=== PATIENT | female | born 1945 | race Caucasian/White ===

== ENCOUNTER → 2017-02-18 | Outpatient (CLI) | payer MEDICARE, MEDICAID ==
[2017-02-18 12:24] LABS: ALANINE AMINOTRANSFERASE 20 U/L (9-52); ALBUMIN 3.8 g/dL (3.5-5.0); ALKALINE PHOSPHATASE 74 U/L (38-126); ASPARTATE AMINO TRANSFERASE 22 U/L (14-36); BILIRUBIN,DIRECT 0.2 mg/dL (0.0-0.4); BILIRUBIN,TOTAL 0.5 mg/dL (0.2-1.3); CHOLESTEROL 164.54 mg/dL (0-200); Direct HDL 37 mg/dL (>40); TOTAL PROTEIN 6.7 g/dL (6.3-8.2); TRIGLYCERIDES 412 mg/dL (<150)
[2017-02-18 12:36] LABS: DIRECT LDL 60 mg/dL (<100)
== END ==
LOC: OD 10:54
PROVIDERS: ATTEND Specialist
DX: E78.5 Hyperlipidemia, unspecified (principal); Z79.899 Other long term (current) drug therapy; I34.0 Nonrheumatic mitral (valve) insufficiency; R01.1 Cardiac murmur, unspecified; I25.118 Atherosclerotic heart disease of native coronary artery with other forms of angina pectoris; M15.9 Polyosteoarthritis, unspecified; E11.9 Type 2 diabetes mellitus without complications; E66.9 Obesity, unspecified; I66.9 Occlusion and stenosis of unspecified cerebral artery; R94.31 Abnormal electrocardiogram [ECG] [EKG]; R07.9 Chest pain, unspecified; R06.09 Other forms of dyspnea
CPT/HCPCS: 36415; 80061; 80076; 83036

== ENCOUNTER → 2017-03-15 | Outpatient (CLI) | payer MEDICARE, MEDICAID | LOC: RAD 08:35 | PROVIDERS: ATTEND Family Medicine | DX: R11.0 Nausea (principal) | CPT/HCPCS: 78264; A9541 ==

== ENCOUNTER 2017-03-21 12:11 | Day surgery (SDC) | payer MEDICARE, MEDICAID ==
[2017-03-21] MEDS ORDERED: MIDAZOLAM 2 MG/2 ML INJ ONE ×2 (12:13→12:14)
[2017-03-21] MEDS ORDERED: NALOXONE HCL INJ/PF 0.4 MG/1 ML SDV ONE (12:13)
[2017-03-21] MEDS ORDERED: DIPHENHYDRAMINE HCL 50 MG/ML VIAL ONE (12:13)
[2017-03-21] MEDS ORDERED: ONDANSETRON HCL INJ/PF 4 MG/2 ML SDV ONE (12:13)
[2017-03-21] MEDS ORDERED: FLUMAZENIL INJ 0.5 MG/5 ML VIAL IV ONE (12:14)
[2017-03-21] MEDS ORDERED: FENTANYL CITRATE INJ/PF 100 MCG/2 ML AMPUL ONE (12:14)
[2017-03-21] MEDS ORDERED: GLUCAGON,HUMAN RECOMB 1 MG INJ ONE (12:15)
[2017-03-21] MEDS ORDERED: EPINEPHRINE INJ 1 MG/10 ML DISP.SYRIN ONE (12:15)
[2017-03-21] MEDS ORDERED: ONABOTULINUMTOXINA INJ/PF 100 UNIT SDV IM PRN (13:00)
--- NOTE | 2017-03-21 13:27 | Operative Report ---
Operative Report DATE OF SURGERY: 03/21/17 Operative Report: The risks benefits and alternatives of the procedure explained to the patient in detail and informed consent is obtained . GIF Olympus video scope was inserted into the patient's mouth and hypopharynx, the esophagus is identified intubated and insufflated, the scope was then advanced through the esophagus stomach and duodenum, retroflexion maneuver is done the esophagus stomach and first and second portions of the duodenum examined PREOPERATIVE DIAGNOSIS: Nausea vomiting, gastroparesis POSTOPERATIVE DIAGNOSIS: Gastritis status post biopsy. Lack of peristalsis in the gastric antrum status post submucosal injection 20 units per mL off Botox, total of 5 mL OPERATION: EGD with submucosal injection. EGD with biopsy SURGEON: ELVIRA SANDHU ANESTHESIA: Moderate Sedation - 2 mg of Versed. Conscious sedation monitoring time 30 minutes. TISSUE REMOVED OR ALTERED: Gastric mucosal specimens obtained COMPLICATIONS: None. ESTIMATED BLOOD LOSS: none. INTRAOPERATIVE FINDINGS: As described above. PROCEDURE: Patient tolerated the procedure well. No immediate postprocedure complications are noted. Patient discharged in good condition. Discharge date 03/21/2017. Discharge diet: Regular. Discharge activity: Regular. 2-3 week follow-up to discuss findings. Patient is instructed to call the office or proceed to the emergency room should there be any further problems or questions. We'll await on biopsies.
[2017-03-21 14:30] VITALS: BP 136/64
== END 2017-03-21 14:35 | disposition home or self-care (01) ==
LOC: END 12:11
PROVIDERS: ATTEND Internal Medicine Gastroenterology
PROC: 0DB68ZX Excision of Stomach, Via Natural or Artificial Opening Endoscopic, Diagnostic (ICD-10-PCS; principal; 2017-03-21 13:00)
PROC: 3E0G8GC Introduction of Other Therapeutic Substance into Upper GI, Via Natural or Artificial Opening Endoscopic (ICD-10-PCS; 2017-03-21 13:00)
DX: K31.84 Gastroparesis (principal); K29.50 Unspecified chronic gastritis without bleeding; J44.9 Chronic obstructive pulmonary disease, unspecified; E78.2 Mixed hyperlipidemia; G62.9 Polyneuropathy, unspecified; E08.22 Diabetes mellitus due to underlying condition with diabetic chronic kidney disease; I13.2 Hypertensive heart and chronic kidney disease with heart failure and with stage 5 chronic kidney disease, or end stage renal disease; I50.9 Heart failure, unspecified; N18.6 End stage renal disease; Z87.891 Personal history of nicotine dependence; Z86.73 Personal history of transient ischemic attack (TIA), and cerebral infarction without residual deficits; Z79.4 Long term (current) use of insulin; Z79.899 Other long term (current) drug therapy; Z88.8 Allergy status to other drugs, medicaments and biological substances; Z79.51 Long term (current) use of inhaled steroids; Z79.82 Long term (current) use of aspirin
CPT/HCPCS: 43236; 43239; 82962; 88342 ×2; 88305 ×2; J2250; J0585; J0171; J1200; J1610; J2310; J2405; J3010; J3490

== ENCOUNTER → 2017-07-01 | Outpatient (CLI) | payer MEDICARE, MEDICAID ==
[2017-07-01 14:19] LABS: THYROID STIMULATING HORMONE 0.09 uIU/mL (0.47-4.68)
== END ==
LOC: OD 12:06
PROVIDERS: ATTEND Ophthalmology
DX: E10.3393 Type 1 diabetes mellitus with moderate nonproliferative diabetic retinopathy without macular edema, bilateral (principal); H04.123 Dry eye syndrome of bilateral lacrimal glands
CPT/HCPCS: 36415; 84439; 84443

== ENCOUNTER 2017-08-13 12:40 | Day surgery (SDC) | payer MEDICARE, MEDICAID ==
[2017-08-13] MEDS ORDERED: ONDANSETRON HCL INJ/PF 4 MG/2 ML SDV ONE (13:04)
[2017-08-13] MEDS ORDERED: MIDAZOLAM 2 MG/2 ML INJ ONE ×2 (13:04)
[2017-08-13] MEDS ORDERED: NALOXONE HCL INJ/PF 0.4 MG/1 ML SDV ONE (13:04)
[2017-08-13] MEDS ORDERED: DIPHENHYDRAMINE HCL 50 MG/ML VIAL ONE (13:04)
[2017-08-13] MEDS ORDERED: GLUCAGON,HUMAN RECOMB 1 MG INJ ONE (13:05)
[2017-08-13] MEDS ORDERED: FLUMAZENIL INJ 0.5 MG/5 ML VIAL ONE (13:05)
[2017-08-13] MEDS ORDERED: EPINEPHRINE INJ 1 MG/10 ML DISP.SYRIN ONE (13:05)
[2017-08-13] MEDS ORDERED: ONABOTULINUMTOXINA INJ/PF 100 UNIT SDV IM PRN (13:10)
[2017-08-13] MEDS: FENTANYL CITRATE INJ/PF 100 MCG/2 ML AMPUL ONE ×2 (13:32→13:34)
--- NOTE | 2017-08-13 13:52 | Operative Report ---
Operative Report DATE OF SURGERY: 08/13/17 Operative Report: The risks benefits and alternatives of the procedure explained to the patient in detail and informed consent is obtained .A GIF Olympus video scope was inserted into the patient's mouth and hypopharynx, the esophagus is identified intubated and insufflated, the scope was then advanced through the esophagus stomach and duodenum, retroflexion maneuver is done, the esophagus stomach and first and second portions of the duodenum examined PREOPERATIVE DIAGNOSIS: Gastroparesis, nausea and vomiting POSTOPERATIVE DIAGNOSIS: Residual food status post Botox injection total of 100 units; 20 U/cc injection OPERATION: EGD with submucosal injection of Botox SURGEON: ELVIRA SANDHU ANESTHESIA: Moderate Sedation - 4 mg of Versed, 50 mcg of fentanyl. Conscious sedation monitoring time 30 minutes. TISSUE REMOVED OR ALTERED: None. COMPLICATIONS: None. ESTIMATED BLOOD LOSS: None. INTRAOPERATIVE FINDINGS: Residual food noted in the stomach cavity. Patient had been n.p.o. since midnight. Indicates gastroparesis since at least 12 hours as gone by PROCEDURE: Patient tolerated procedure well. No immediate postprocedure complications are noted. Patient discharged in good condition. Discharge date 08/13/2017. Discharge diet: Regular. Discharge activity: Regular. 2-3 week follow-up to discuss findings. Patient is instructed to call the office or proceed to the emergency room should there be any further problems or questions.
[2017-08-13 14:54] VITALS: BP 132/62
== END 2017-08-13 15:00 | disposition home or self-care (01) ==
LOC: END 12:40
PROVIDERS: ATTEND Internal Medicine Gastroenterology
PROC: 0DH63UZ Insertion of Feeding Device into Stomach, Percutaneous Approach (ICD-10-PCS; principal; 2017-08-13 13:30)
DX: K31.84 Gastroparesis (principal); M19.90 Unspecified osteoarthritis, unspecified site; J44.9 Chronic obstructive pulmonary disease, unspecified; E78.5 Hyperlipidemia, unspecified; I25.10 Atherosclerotic heart disease of native coronary artery without angina pectoris; I12.9 Hypertensive chronic kidney disease with stage 1 through stage 4 chronic kidney disease, or unspecified chronic kidney disease; E11.22 Type 2 diabetes mellitus with diabetic chronic kidney disease; N18.3 Chronic kidney disease, stage 3 (moderate); E78.2 Mixed hyperlipidemia; E11.319 Type 2 diabetes mellitus with unspecified diabetic retinopathy without macular edema; E11.49 Type 2 diabetes mellitus with other diabetic neurological complication; Z86.73 Personal history of transient ischemic attack (TIA), and cerebral infarction without residual deficits
CPT/HCPCS: 43236; 82962; J2250; J3010; J0585; J0171; J1200; J1610; J2310; J2405; J3490

== ENCOUNTER → 2017-09-04 | Outpatient (CLI) | payer MEDICARE, MEDICAID ==
--- NOTE | 2017-09-04 18:40 | WOMENS IMAGING REPORT ---
EXAM DESCRIPTION: BILAT SCREENING MAMMO W/CAD COMPLETED DATE/TIME: 09/04/2017 4:36 pm REASON FOR STUDY: SCREENING MAMMO Z12.31 ENCNTR SCREEN MAMMOGRAM FOR MALIGNANT NEOPLASM OF [place] COMPARISON: 2012 TECHNIQUE: Standard craniocaudal and mediolateral oblique views of each breast recorded using digita l acquisition. LIMITATIONS: None. FINDINGS: Findings present which are benign by mammographic criteria. No suspicious masses, calcifi cations or architectural distortion. Pertinent benign findings: Benign calcifications bilaterally Read with the assistance of CAD. .[facility] - R2 Cenova Version 1.3 .[facility] Imaging - R2 Cenova Version 1.3 .[facility] Imaging - R2 Cenova Version 2.4 .[facility] - R2 Cenova Version 2.4 .[facility] - R2 Foster Winder Version 9.2 Benign mammographic findings may include one or more of the following: Smooth masses, popcorn/rim/co arse calcifications, asymmetries, post-procedure changes, and lesions with long-standing stability. IMPRESSION: BENIGN MAMMOGRAPHIC FINDINGS. BIRADS 2 BREAST DENSITY: b. There are scattered areas of fibroglandular density. BIRAD: 2 BENIGN FINDING(S) RECOMMENDATION: ROUTINE SCREENING COMMENT: The patient has been notified of the results by letter per SA requirements. Additional no tification policies are in place for contacting patient with suspicious or incomplete findings. Quality ID #[id number]: [employer] [place] [employer] recommends an annual screening mammogram for women aged 40 years or over. This facility utilizes a reminder system to ensure that all patients receive reminder letters, and/or direct phone calls for appointments. This includes reminders for routine scr eening mammograms, diagnostic mammograms, or other Breast Imaging Interventions when appropriate. Th is patient will be placed in the appropriate reminder system. [employer] [place] [employer] ([employer]) has developed recommendations for screening MRI of the breast s in certain patient populations, to be used in conjunction with mammography. Breast MRI surveillanc e may be appropriate for women with more than 20% lifetime risk of developing breast cancer as deter mined by genetic testing, significant family history of the disease, or history of mantle radiation f or Hodgkins Disease. ACR Practice Guidelines 2008. TECHNICAL DOCUMENTATION: FINDING NUMBER: (1) ASSESSMENT: (1) JOB ID: [id number] [employer]- All Rights Reserved
== END ==
LOC: WI 14:06
PROVIDERS: ATTEND Family Medicine
DX: Z12.31 Encounter for screening mammogram for malignant neoplasm of breast (principal)
CPT/HCPCS: 77067; G0202

== ENCOUNTER → 2018-02-21 | Outpatient (CLI) | payer MEDICARE, MEDICAID ==
--- NOTE | 2018-02-21 16:16 | RADIOLOGY REPORT (SQ) ---
EXAM DESCRIPTION: ANKLE RIGHT COMPLETE COMPLETED DATE/TIME: 02/21/2018 3:49 pm REASON FOR STUDY: SHORTNESS OF BREATH; ACUTE RT ANKLE PAIN R06.02 SHORTNESS OF BREATH M25.571 PAIN IN RIGHT ANKLE AND JOINTS OF RIGHT FOOT COMPARISON: None. NUMBER OF VIEWS: Three views. TECHNIQUE: AP, lateral, and oblique without weight bearing radiographic images acquired of the right ankle. LIMITATIONS: None. FINDINGS: MINERALIZATION: Normal. BONES: No acute fracture or dislocation. No worrisome bone lesions. Plantar calcaneal spur. JOINTS: No effusions. SOFT TISSUES: Soft tissue swelling. No foreign body. OTHER: No other significant finding. IMPRESSION: SOFT TISSUE SWELLING. NO SIGNIFICANT BONY FINDINGS. TECHNICAL DOCUMENTATION: JOB ID: [id number] [employer]- All Rights Reserved Reading location - IP/workstation name: [email or web address]
--- NOTE | 2018-02-21 16:19 | RADIOLOGY REPORT (SQ) ---
EXAM DESCRIPTION: CHEST PA/LATERAL COMPLETED DATE/TIME: 02/21/2018 3:49 pm REASON FOR STUDY: SHORTNESS OF BREATH; ACUTE RT ANKLE PAIN COMPARISON: April 2016 EXAM PARAMETERS: NUMBER OF VIEWS: two views TECHNIQUE: Digital Frontal and Lateral radiographic views of the chest acquired. RADIATION DOSE: NA LIMITATIONS: none FINDINGS: LUNGS AND PLEURA: No opacities, masses or pneumothorax. No pleural effusion. MEDIASTINUM AND HILAR STRUCTURES: No masses or contour abnormalities. HEART AND VASCULAR STRUCTURES: Cardiac silhouette is mildly enlarged. There is mild pulmonary vascul ar congestion BONES: No acute findings. HARDWARE: Patient is status post median sternotomy. OTHER: No other significant finding. IMPRESSION: No acute consolidations or pleural effusions. There is mild cardiomegaly with mild pulm onary vascular congestion. Other findings as noted above TECHNICAL DOCUMENTATION: JOB ID: [id number] [employer]- All Rights Reserved Reading location - IP/workstation name: [email or web address]
== END ==
LOC: OD 15:25
PROVIDERS: ATTEND Family Medicine
DX: M25.571 Pain in right ankle and joints of right foot (principal); R06.02 Shortness of breath
CPT/HCPCS: 71046

== ENCOUNTER → 2018-04-21 | Outpatient (CLI) | payer MEDICARE, MEDICAID ==
--- NOTE | 2018-04-21 14:36 | RADIOLOGY REPORT (SQ) ---
EXAM DESCRIPTION: CHEST PA/LATERAL COMPLETED DATE/TIME: 04/21/2018 2:25 pm REASON FOR STUDY: HEART FAILURE, UNSPECIFIED COMPARISON: Chest films 03/20/2016, 04/11/2016, 02/21/2018 EXAM PARAMETERS: NUMBER OF VIEWS: two views TECHNIQUE: Digital Frontal and Lateral radiographic views of the chest acquired. RADIATION DOSE: NA LIMITATIONS: none FINDINGS: LUNGS AND PLEURA: Bandlike atelectasis is present along the left major fissure and in the left upper lobe. This is similar compared to 02/21/2018. No fluffy alveolar infiltrates worrisome for edema or pneumonia. No pleural effusions. No pneumotho rax. MEDIASTINUM AND HILAR STRUCTURES: No masses or contour abnormalities. HEART AND VASCULAR STRUCTURES: Mild cardiomegaly. Old sternotomy and CABG. BONES: Osteopenic without thoracic spine compression deformity HARDWARE: Clips right upper quadrant post cholecystectomy. OTHER: No other significant finding. IMPRESSION: Left upper lobe bandlike scarring or atelectasis. Stable cardiomegaly with old CABG TECHNICAL DOCUMENTATION: JOB ID: [id number] [employer]- All Rights Reserved Reading location - IP/workstation name: [email or web address]
== END ==
LOC: OD 13:57
PROVIDERS: ATTEND Family Medicine
DX: I50.9 Heart failure, unspecified (principal); I51.7 Cardiomegaly; Z95.1 Presence of aortocoronary bypass graft
CPT/HCPCS: 71046

== ENCOUNTER 2018-06-18 07:36 | Day surgery (SDC) | payer MEDICARE, MEDICAID ==
[2018-06-18] MEDS ORDERED: ONABOTULINUMTOXINA INJ/PF 100 UNIT SDV IJ ONE (10:00)
[2018-06-18] MEDS ORDERED: PROMETHAZINE HCL INJ 25 MG/1 ML VIAL IV PRN ×2 (10:57)
[2018-06-18] MEDS ORDERED: DIPHENHYDRAMINE HCL 50 MG/ML VIAL IV PRN (10:57)
[2018-06-18] MEDS ORDERED: FENTANYL CITRATE INJ/PF 100 MCG/2 ML AMPUL IV PRN ×3 (10:57)
[2018-06-18] MEDS ORDERED: MEPERIDINE HCL/PF INJ 25 MG/1 ML DISP.SYRIN IV PRN (10:57)
--- NOTE | 2018-06-18 12:27 | Operative Report ---
Operative Report DATE OF SURGERY: 06/18/18 Operative Report: The risks benefits and alternatives of the procedure explained to the patient in detail and informed consent is obtained.A GIF Olympus video scope was inserted into the patient's mouth and hypopharynx, the esophagus is identified intubated and insufflated ,the scope was then advanced through the esophagus stomach and duodenum, retroflexion maneuver is done, the esophagus stomach and first and second portions of the duodenum examined PREOPERATIVE DIAGNOSIS: Nausea vomiting, melena POSTOPERATIVE DIAGNOSIS: Gastroparesis status post Botox injection of the gastric outlet. Gastric AVM status post ablation OPERATION: EGD with submucosal injection. EGD with ablation SURGEON: ELVIRA SANDHU ANESTHESIA: LMAC TISSUE REMOVED OR ALTERED: None. COMPLICATIONS: None. ESTIMATED BLOOD LOSS: None. INTRAOPERATIVE FINDINGS: As noted above. PROCEDURE: Patient tolerated the procedure well. No immediate postprocedure complications are noted. Patient discharged in good condition. Discharge date 06/18/2018. Discharge diet: Regular. Discharge activity: Regular. 2-3 week follow-up to discuss findings. Patient is instructed to call the office or proceed to the emergency room should there be any further problems or questions. We will wait on pathology.
[2018-06-18 12:54] VITALS: BP 133/74
== END 2018-06-18 12:45 | disposition home or self-care (01) ==
LOC: OROUT 07:36
PROVIDERS: ATTEND Internal Medicine Gastroenterology
DX: E11.43 Type 2 diabetes mellitus with diabetic autonomic (poly)neuropathy (principal); K31.84 Gastroparesis; K55.20 Angiodysplasia of colon without hemorrhage; E78.5 Hyperlipidemia, unspecified; I10 Essential (primary) hypertension; E11.22 Type 2 diabetes mellitus with diabetic chronic kidney disease; I13.0 Hypertensive heart and chronic kidney disease with heart failure and stage 1 through stage 4 chronic kidney disease, or unspecified chronic kidney disease; N18.3 Chronic kidney disease, stage 3 (moderate); E11.311 Type 2 diabetes mellitus with unspecified diabetic retinopathy with macular edema; E11.49 Type 2 diabetes mellitus with other diabetic neurological complication; J44.9 Chronic obstructive pulmonary disease, unspecified; G43.909 Migraine, unspecified, not intractable, without status migrainosus; M19.90 Unspecified osteoarthritis, unspecified site; I20.9 Angina pectoris, unspecified; E07.9 Disorder of thyroid, unspecified; Z86.73 Personal history of transient ischemic attack (TIA), and cerebral infarction without residual deficits; Z79.82 Long term (current) use of aspirin; Z79.899 Other long term (current) drug therapy; Z79.84 Long term (current) use of oral hypoglycemic drugs; Z79.51 Long term (current) use of inhaled steroids; Z79.4 Long term (current) use of insulin; Z88.6 Allergy status to analgesic agent; Z88.8 Allergy status to other drugs, medicaments and biological substances; I25.2 Old myocardial infarction; Z87.891 Personal history of nicotine dependence
CPT/HCPCS: 43236; 43270; 82962; J0585; 731

== ENCOUNTER 2018-07-22 12:10 | Observation (INO) | payer MEDICARE, MEDICAID ==
--- NOTE | 2018-07-22 12:53 | ER Document Report ---
ED Respiratory Problem - General Chief Complaint: Shortness Of Breath Stated Complaint: SHORTNESS OF BREATH Time Seen by Provider: 07/22/18 12:50 Mode of Arrival: Medic Information source: Patient, Relative, [facility] Records TRAVEL OUTSIDE OF THE [place] IN LAST 30 DAYS: No - HPI Patient complains to provider of: Short of breath Onset: Other - 2-3 DAYS Duration: Continuous Initiating Event: No: Out of meds Quality of pain: Other - TIGHTNESS Context: Hx asthma, Hx CHF. denies: Malignancy, Recent cardiac event, Recent foreign travel, Recent long distance trvl, Recent immobilization, Recent surgery , Smoker Short of Breath: Moderate Chest pain/discomfort: Tightness Cough: Productive Sputum amount: Scant Sputum color: Yellow Sputum consistency: Mucoid At home treatment: Diuretics, Singulair EMS treatments: Oxygen Associated symptoms: Chest pain/discomfort, Extertional dyspnea, Short of breath. denies: Ankle/leg swelling, Chills, Fever, Hurts to breathe Similar symptoms previously: Yes - NOT RECENT Recently seen / treated by doctor: No - URGENT CARE CLINIC TODAY - Related Data Allergies/Adverse Reactions: amoxicillin trihydrate [From Augmentin] Allergy (Severe, Verified 06/12/18 14:46 ) stomach cramps, n and v, rash butalbital [From Fiorinal] Allergy (Unknown, Verified 06/12/18 14:46) rash metformin HCl [From Glucophage] Allergy (Unknown, Verified 06/12/18 14:46) rash Potassium Clavulanate * [From Augmentin] Adverse Reaction (Unknown, Verified 12/29 14:46) nausea, vomit, epig pain Past Medical History - General Information source: Patient - Social History Smoking Status: Former Smoker Cigarette use (# per day): No Chew tobacco use (# tins/day): No Frequency of alcohol use: None Drug Abuse: None Lives with: Spouse/Significant other Family History: Reviewed & Not Pertinent Patient has suicidal ideation: No Patient has homicidal ideation: No - Past Medical History Cardiac Medical History: Reports: Hx Congestive Heart Failure, Hx Coronary Artery Disease - BYPASS 2001, Hx Heart Attack, Hx Hypercholesterolemia, Hx Hypertension - MEDS Pulmonary Medical History: Reports: Hx Asthma, Hx Bronchitis, Hx COPD, Hx Pneumonia, Hx Sleep Apnea - no cpap insurance does not cover Neurological Medical History: Reports: Hx Cerebrovascular Accident - X4. Denies : Hx Seizures Endocrine Medical History: Reports: Hx Diabetes Mellitus Type 2 - DX [place] 1994 Renal/ Medical History: Reports: None Malignancy Medical History: Reports: None GI Medical History: Reports: Hx Gastroesophageal Reflux Disease. Denies: Hx Pancreatitis Musculoskeletal Medical History: Reports Hx Arthritis - GENERALIZE Psychiatric Medical History: Reports: Hx Depression Past Surgical History: Reports: Hx Cholecystectomy, Hx Gastric Bypass Surgery - 2001 and stent, Hx Open Heart Surgery - 2001 TRIPLE BYPASS, Hx Tubal Ligation. Denies: Hx Hysterectomy - Immunizations Hx Diphtheria, Pertussis, Tetanus Vaccination: No Hx Pneumococcal Vaccination: 11/11/14 Review of Systems - Review of Systems Constitutional: No symptoms reported EENT: No symptoms reported Cardiovascular: See HPI Respiratory: See HPI Gastrointestinal: No symptoms reported Genitourinary: No symptoms reported Female Genitourinary: Post menopausal Musculoskeletal: No symptoms reported Skin: No symptoms reported Neurological/Psychological: No symptoms reported Physical Exam - Vital signs Vitals: Pulse Ox 95 07/22/18 12:35 Interpretation: Normal. No: Bradycardic, Tachycardic, Hypoxic, Tachypneic - General General appearance: Appears well, Alert In distress: None - HEENT Head: Normocephalic Eyes: Pale conjunctiva Ears: Normal Nasal: Normal Mouth/Lips: Normal Mucous membranes: Normal - Respiratory Respiratory status: No respiratory distress Breath sounds: Normal - Cardiovascular Rhythm: Regular Heart sounds: Normal auscultation Murmur: No - Abdominal Inspection: Normal Distension: No distension - Rectal Tenderness: Yes - MILD Stool: Other - LIGHT BROWNISH, HEMOCCULT PENDING Hemorrhoids: External - Extremities General upper extremity: Normal inspection General lower extremity: Normal inspection. No: Tender, Edema - Neurological Neuro grossly intact: Yes Cognition: Normal Orientation: AAOx4 - Psychological Associated symptoms: Normal affect, Normal mood - Skin Skin Temperature: Warm Skin Moisture: Dry Skin Color: Normal Skin Turgor: Elastic Course - Vital Signs Vital signs: Temp Pulse Resp BP Pulse Ox 95 07/22/18 12:35 - Laboratory Result Diagrams: 07/22/18 12:42 07/22/18 20:22 Laboratory results interpreted by me: 07/22/18 07/22/18 07/22/18 12:42 12:42 12:42 RBC 2.86 L Hgb 8.1 L Hct 25.1 L RDW 18.3 H Plt Count 124 L Potassium BUN 39 H Creatinine 2.67 H Est GFR ( Amer) 21 L Est GFR (Non-Af Amer) 18 L Glucose 47 L POC Glucose Calcium 8.2 L AST 37 H NT-Pro-B Natriuret Pep 4100 H Albumin 3.3 L Ur Leukocyte Esterase Crossmatch 07/22/18 07/22/18 07/22/18 13:47 15:15 17:45 RBC Hgb Hct RDW Plt Count Potassium BUN Creatinine Est GFR ( Amer) Est GFR (Non-Af Amer) Glucose POC Glucose 43 L Calcium AST NT-Pro-B Natriuret Pep Albumin Ur Leukocyte Esterase TRACE H Crossmatch See Detail 07/22/18 20:22 RBC Hgb Hct RDW Plt Count Potassium 5.6 H D BUN 41 H Creatinine 2.54 H Est GFR ( Amer) 23 L Est GFR (Non-Af Amer) 19 L Glucose 184 H POC Glucose Calcium 7.8 L AST NT-Pro-B Natriuret Pep Albumin Ur Leukocyte Esterase Crossmatch - EKG Interpretation by [place] EKG shows normal: Sinus rhythm, North, Intervals, ST-T Waves. abnormal: QRS Complexes - OLD INF. WI Rate: Normal Rhythm: NSR North/QRS: IVCD - Consults DR. STALLINGS Time consulted: 21:10 Consulted provider: will come to ER Discharge - Discharge Clinical Impression: Exertional angina, CKD (chronic kidney disease), stage III, Diabetes mellitus, type II, insulin dependent Anemia Qualifiers: Anemia type: unspecified type Qualified Code(s): D64.9 - Anemia, unspecified Renal failure Qualifiers: Renal failure chronicity: acute Acute renal failure type: unspecified Qualified Code(s): N17.9 - Acute kidney failure, unspecified Condition: Stable Disposition: ADMITTED OBSERVATION Admitting Provider: Hospitalist Unit Admitted: Telemetry
[2018-07-22 13:38] LABS: ABSOLUTE EOSINOPHILS # (AUTO) 0.2 10^3/uL (0.0-0.6); ABSOLUTE MONOCYTES (AUTO) 0.6 10^3/uL (0.1-1.4); ABSOLUTE NEUT (AUTO) 5.8 10^3/uL (1.7-8.2); BASOPHILS % (AUTO) 0.5 % (0-2); EOSINOPHILS % (AUTO) 2.6 % (0-6); HEMATOCRIT 25.1 % (36.0-47.0); HEMOGLOBIN 8.1 g/dL (12.0-15.5); LYMPHOCYTES % (AUTO) 22.7 % (13-45); MEAN CORPUSCULAR HEMOGLOBIN 28.2 pg (27.0-33.4); MEAN CORPUSCULAR HGB CONC 32.1 g/dL (32.0-36.0); MEAN CORPUSCULAR VOLUME 88 fl (80-97); MONOCYTES % (AUTO) 6.7 % (3-13); PLATELET COUNT 124 10^3/uL (150-450); RED BLOOD COUNT 2.86 10^6/uL (3.72-5.28); RED CELL DISTRIBUTION WIDTH 18.3 % (11.5-14.0); SEGMENTED NEUTROPHILS % (AUTO) 67.5 % (42-78); TOTAL CELLS COUNTED % (AUTO) 100 %; WHITE BLOOD COUNT 8.6 10^3/uL (4.0-10.5)
--- NOTE | 2018-07-22 13:38 | RADIOLOGY REPORT (SQ) ---
EXAM DESCRIPTION: CHEST SINGLE VIEW COMPLETED DATE/TIME: 07/22/2018 1:22 pm REASON FOR STUDY: sob COMPARISON: Chest films 04/21/2018, 02/21/2018 EXAM PARAMETERS: NUMBER OF VIEWS: One view. TECHNIQUE: Single frontal radiographic view of the chest acquired. RADIATION DOSE: NA LIMITATIONS: Lordotic portable chest film with EKG leads over the chest FINDINGS: LUNGS AND PLEURA: Bandlike atelectasis at the left lung base. MEDIASTINUM AND HILAR STRUCTURES: No masses. Contour normal. HEART AND VASCULAR STRUCTURES: Stable cardiomegaly, post CABG. BONES: No acute findings. HARDWARE: None in the chest. OTHER: No other significant finding. IMPRESSION: NO ACUTE RADIOGRAPHIC FINDING IN THE CHEST. TECHNICAL DOCUMENTATION: JOB ID: [id number] [employer]- All Rights Reserved Reading location - IP/workstation name: [email or web address]
[2018-07-22 13:41] LABS: ALANINE AMINOTRANSFERASE 21 U/L (9-52); ALBUMIN 3.3 g/dL (3.5-5.0); ALKALINE PHOSPHATASE 49 U/L (38-126); ANION GAP 7 (5-19); ASPARTATE AMINO TRANSFERASE 37 U/L (14-36); BILIRUBIN,DIRECT 0.4 mg/dL (0.0-0.4); BILIRUBIN,TOTAL 0.5 mg/dL (0.2-1.3); BLOOD UREA NITROGEN 39 mg/dL (7-20); CALCIUM 8.2 mg/dL (8.4-10.2); CARBON DIOXIDE 27 mmol/L (22-30); CHLORIDE 106 mmol/L (98-107); CREATINE KINASE 98 U/L (30-135); GLUCOSE 47 mg/dL (75-110); POTASSIUM 4.5 mmol/L (3.6-5.0); TOTAL PROTEIN 6.4 g/dL (6.3-8.2)
[2018-07-22 13:52] LABS: NT PRO BNP 4100 pg/mL (5-900)
[2018-07-22 13:53] LABS: TROPONIN I < 0.012 ng/mL
[2018-07-22] MEDS ORDERED: DEXTROSE 40% GEL 15 GM TUBE PO STA (14:05)
[2018-07-22 15:54] LABS: APPEARANCE,URINE CLEAR; BILIRUBIN,URINE NEGATIVE (NEGATIVE); COLOR,URINE YELLOW; GLUCOSE, URINE NEGATIVE (NEGATIVE); KETONES,URINE NEGATIVE (NEGATIVE); LEUKOCYTE ESTERASE,URINE TRACE (NEGATIVE); NITRITE,URINE NEGATIVE (NEGATIVE); PROTEIN,URINE NEGATIVE (NEGATIVE); URINE SPECIFIC GRAVITY 1.012; UROBILINOGEN,URINE NEGATIVE mg/dL (<2.0)
[2018-07-22] MEDS ORDERED: NORMAL SALINE 1000 ML 1,000 ML IV PRN (17:27)
[2018-07-22] MEDS ORDERED: NORMAL SALINE 250 ML IV PRN (17:29)
[2018-07-22 20:45] LABS: ANION GAP 5 (5-19); BLOOD UREA NITROGEN 41 mg/dL (7-20); CALCIUM 7.8 mg/dL (8.4-10.2); CARBON DIOXIDE 28 mmol/L (22-30); CHLORIDE 104 mmol/L (98-107); GLUCOSE 184 mg/dL (75-110); SODIUM 137.4 mmol/L (137-145)
[2018-07-22 21:05] LABS: POTASSIUM 5.6 mmol/L (3.6-5.0)
[2018-07-22] MEDS ORDERED: LACTULOSE SYRUP 20 GM/30 ML UDCUP PO ONE (21:11)
[2018-07-22] MEDS ORDERED: SODIUM POLYSTYRENE SULFONATE 15 GM/60 ML PO ONE (21:11)
[2018-07-22] MEDS ORDERED: IPRATROPIUM/ALBUTEROL 0.5-2.5 MG/3 ML AMPUL NEB PRN (21:12)
[2018-07-22] MEDS ORDERED: GLUCAGON,HUMAN RECOMB 1 MG INJ IM PRN (21:12)
[2018-07-22] MEDS ORDERED: INSULIN LISPRO 100 UNIT/ML 3 ML VIAL SUBCUT PRN (21:12)
[2018-07-22] MEDS ORDERED: DEXTROSE 40% GEL 15 GM TUBE PO PRN ×2 (21:12)
[2018-07-22] MEDS ORDERED: DEXTROSE 50%-WATER 25 GM/50 ML DISP.SYRIN IV PRN ×2 (21:12)
[2018-07-22] MEDS ORDERED: ACETAMINOPHEN 325 MG TABLET PO PRN (21:12)
[2018-07-22 21:30] LABS: RETICULOCYTE COUNT (AUTO) 3.94 % (0.66-2.85)
[2018-07-22 21:36] LABS: IRON(TIBC) 34.3 ug/dL (37-170)
[2018-07-22] MEDS ORDERED: HEPARIN SOD (PORCINE) 5,000 UNIT/ML 1 ML SYRINGE SUBCUT SCH (22:00)
--- NOTE | 2018-07-22 23:00 | EKG REPORT ---
SEVERITY:- ABNORMAL ECG - SINUS RHYTHM NONSPECIFIC INTRAVENTRICULAR CONDUCTION DELAY PROBABLE INFERIOR INFARCT, AGE INDETERMINATE ABNRM R PROG, CONSIDER ASMI OR LEAD PLACEMENT : Confirmed by: Mariano Rodríguez 22-Jul-2018 22:59:43
[2018-07-23 03:27] VITALS: BP 148/56
[2018-07-23 04:49] LABS: ABSOLUTE EOSINOPHILS # (AUTO) 0.2 10^3/uL (0.0-0.6); ABSOLUTE LYMPHOCYTES (AUTO) 1.3 10^3/uL (0.5-4.7); ABSOLUTE MONOCYTES (AUTO) 0.4 10^3/uL (0.1-1.4); ABSOLUTE NEUT (AUTO) 4.1 10^3/uL (1.7-8.2); BASOPHILS % (AUTO) 0.8 % (0-2); EOSINOPHILS % (AUTO) 2.6 % (0-6); HEMATOCRIT 31.1 % (36.0-47.0); LYMPHOCYTES % (AUTO) 21.3 % (13-45); MEAN CORPUSCULAR HEMOGLOBIN 28.7 pg (27.0-33.4); MEAN CORPUSCULAR HGB CONC 33.2 g/dL (32.0-36.0); MEAN CORPUSCULAR VOLUME 86 fl (80-97); MONOCYTES % (AUTO) 7.3 % (3-13); PLATELET COUNT 100 10^3/uL (150-450); TOTAL CELLS COUNTED % (AUTO) 100 %; WHITE BLOOD COUNT 6.1 10^3/uL (4.0-10.5)
[2018-07-23 04:50] LABS: HEMOGLOBIN 10.3 g/dL (12.0-15.5)
[2018-07-23 05:03] LABS: ANION GAP 5 (5-19); BLOOD UREA NITROGEN 39 mg/dL (7-20); CARBON DIOXIDE 27 mmol/L (22-30); CHLORIDE 107 mmol/L (98-107); GLUCOSE 139 mg/dL (75-110); POTASSIUM 5.2 mmol/L (3.6-5.0); SODIUM 138.8 mmol/L (137-145)
--- NOTE | 2018-07-23 05:57 | H&P/Discharge Summary ---
Discharge Summary Admission Date/PCP: 07/22/18 22:26 DANI PANDA DO Home Medications: Ascorbic Acid [Vitamin C 500 mg Tablet] 500 mg PO DAILY 06/18/18 Aspirin [Aspirin 325 mg Tablet] 325 mg PO DAILY 06/18/18 Biotin [Biotin 10 mg Tablet] 1 tab PO DAILY PRN 06/18/18 Cholecalciferol (Vitamin D3) [Vitamin D3 400 Unit Tablet] 400 unit PO DAILY 06/28 Ezetimibe 10 mg PO DAILY 06/18/18 Fenofibrate 160 mg PO DAILY 06/18/18 Furosemide [Lasix] 40 mg PO BID 06/18/18 Isosorbide Mononitrate [Isosorbide Mononitrate ER] 30 mg PO DAILY 06/18/18 Loratadine 10 mg PO DAILY 06/18/18 Losartan Potassium 25 mg PO DAILY 06/18/18 Metoclopramide HCl 5 mg PO BID 06/18/18 Montelukast Sodium 10 mg PO DAILY 06/18/18 Simvastatin 40 mg PO DAILY 06/18/18 Sitagliptin Phosphate [Januvia] 100 mg PO DAILY 06/18/18 Vitamin B Complex [Super B Complex] 1 each PO DAILY 06/18/18 Gabapentin TID 07/23/18 Metoprolol Succinate [Toprol Xl 25 mg Tab.sr] BID 07/23/18 Nitroglycerin 07/23/18 Omeprazole PO BID 07/23/18 Ondansetron [Zofran Odt] 07/23/18 Oxycodone HCl/Acetaminophen [Oxycodone-Acetaminophen 5-325] Q6 PRN 07/23/18 Allergies/Adverse Reactions: amoxicillin trihydrate [From Augmentin] Allergy (Severe, Verified 06/12/18 14:46 ) stomach cramps, n and v, rash butalbital [From Fiorinal] Allergy (Unknown, Verified 06/12/18 14:46) rash metformin HCl [From Glucophage] Allergy (Unknown, Verified 06/12/18 14:46) rash Potassium Clavulanate * [From Augmentin] Adverse Reaction (Unknown, Verified 12/29 14:46) nausea, vomit, epig pain History of Present Illness Admission Date/PCP: 07/22/18 22:26 DANI PANDA DO Patient complains of: Shortness of breath History of Present Illness: PRECIOUS BURCH is a 73 year old female with a past medical history of diabetes , morbid obesity, gastric AVM and chronic anemia. Patient presents with 3 days of exertional shortness of breath denying chest pain nausea vomiting. In the emergency room she is found to have a hemoglobin of 8.1 from a baseline of 10, she denies abdominal pain, vomiting, dark or red colored stool. In the emergency room she is ordered 2 units of packed red blood cells and referred to the hospitalist for observation. Past Medical History Cardiac Medical History: Reports: Congestive Heart Failure, Coronary Artery Disease - BYPASS 2001, Myocardial Infarction, Hyperlipidema, Hypertension - MEDS Pulmonary Medical History: Reports: Asthma, Bronchitis, Chronic Obstructive Pulmonary Disease (COPD), Pneumonia, Sleep Apnea - no cpap insurance does not cover Neurological Medical History: Denies: Seizures Endocrine Medical History: Reports: Diabetes Mellitus Type 2 - DX [place] 1994 Renal/ Medical History: Reports: None Malignancy Medical History: Reports: None GI Medical History: Reports: Gastroesophageal Reflux Disease Musculoskeltal Medical History: Reports: Arthritis - GENERALIZE Psychiatric Medical History: Reports: Depression Hematology: Reports: Anemia - HX Denies: Hemophilia, Sickle Cell Disease Past Surgical History Past Surgical History: Reports: Cholecystectomy, Gastric Bypass Surgery - 2001 and stent, Tubal Ligation Denies: Amputation, Hysterectomy Social History Information Source: Patient, Emergency Med Personnel, [facility] Records Lives with: Spouse/Significant other Smoking Status: Former Smoker Frequency of Alcohol Use: None Hx Recreational Drug Use: No Hx Prescription Drug Abuse: No - Advance Directive Resuscitation Status: Full Code Family History Family History: DM, Hypertension Parental Family History Reviewed: Yes Children Family History Reviewed: Yes Sibling(s) Family History Reviewed.: Yes Review of Systems Constitutional: ABSENT: chills, fever(s), headache(s), weight gain, weight loss Eyes: ABSENT: visual disturbances Ears: ABSENT: hearing changes Cardiovascular: ABSENT: chest pain, dyspnea on exertion, edema, orthropnea, palpitations Respiratory: ABSENT: cough, hemoptysis Gastrointestinal: ABSENT: abdominal pain, constipation, diarrhea, hematemesis, hematochezia, nausea, vomiting Genitourinary: ABSENT: dysuria, hematuria Musculoskeletal: ABSENT: joint swelling Integumentary: ABSENT: rash, wounds Neurological: ABSENT: abnormal gait, abnormal speech, confusion, dizziness, focal weakness, syncope Psychiatric: ABSENT: anxiety, depression, homidical ideation, suicidal ideation Endocrine: ABSENT: cold intolerance, heat intolerance, polydipsia, polyuria Hematologic/Lymphatic: ABSENT: easy bleeding, easy bruising Physical Exam Vital Signs: Temp Pulse Resp BP Pulse Ox 97.6 F 69 16 148/56 H 99 07/23/18 03:26 07/23/18 03:26 07/23/18 03:26 07/23/18 03:26 07/23/18 03:26 Intake & Output 07/21/18 07/22/18 07/23/18 11:59 11:59 11:59 Intake Total 1600 Balance 1600 Weight 91.7 kg General appearance: PRESENT: no acute distress, well-developed, well-nourished Head exam: PRESENT: atraumatic, normocephalic Eye exam: PRESENT: conjunctiva pink, EOMI, PERRLA. ABSENT: scleral icterus Ear exam: PRESENT: normal external ear exam Mouth exam: PRESENT: moist, tongue midline Neck exam: ABSENT: carotid bruit, JVD, lymphadenopathy, thyromegaly Respiratory exam: PRESENT: clear to auscultation cheli. ABSENT: rales, rhonchi, wheezes Cardiovascular exam: PRESENT: RRR. ABSENT: diastolic murmur, rubs, systolic murmur Pulses: PRESENT: normal dorsalis pedis pul Vascular exam: PRESENT: normal capillary refill GI/Abdominal exam: PRESENT: normal bowel sounds, soft. ABSENT: distended, guarding, mass, organolmegaly, rebound, tenderness Rectal exam: PRESENT: deferred Extremities exam: PRESENT: full ROM. ABSENT: calf tenderness, clubbing, pedal edema Neurological exam: PRESENT: alert, awake, oriented to person, oriented to place , oriented to time, oriented to situation, CN II-XII grossly intact. ABSENT: motor sensory deficit Psychiatric exam: PRESENT: appropriate affect, normal mood. ABSENT: homicidal ideation, suicidal ideation Skin exam: PRESENT: dry, intact, warm. ABSENT: cyanosis, rash Results Laboratory Results: 07/23/18 04:31 07/23/18 04:31 07/23/18 07/23/18 04:31 04:31 WBC 6.1 RBC 3.60 L Hgb 10.3 L D Hct 31.1 L MCV 86 MCH 28.7 MCHC 33.2 RDW 18.0 H Plt Count 100 L Seg Neutrophils % 68.0 Lymphocytes % 21.3 Monocytes % 7.3 Eosinophils % 2.6 Basophils % 0.8 Absolute Neutrophils 4.1 Absolute Lymphocytes 1.3 Absolute Monocytes 0.4 Absolute Eosinophils 0.2 Absolute Basophils 0.0 Sodium 138.8 Potassium 5.2 H Chloride 107 Carbon Dioxide 27 Anion Gap 5 BUN 39 H Creatinine 2.25 H Est GFR ( Amer) 26 L Est GFR (Non-Af Amer) 21 L Glucose 139 H Calcium 8.0 L Impressions: Chest X-Ray 07/22/18 12:35 IMPRESSION: NO ACUTE RADIOGRAPHIC FINDING IN THE CHEST. Qualifiers - * PATIENT BEING DISCHARGED WITH ANY OF THE FOLLOWING DIAGNOSIS: No Assessment & Plan - Time Time Spent: 50 to 70 Minutes - Plan Summary Plan Summary: Patient admitted with exertional shortness of breath and symptomatic anemia. Known gastric AVM. No evidence of acute bleeding. She receives 2 units of packed red blood cells without adverse reaction resulting in a hemoglobin of 10.3. She is discharged home in stable and improved condition with instructions to follow-up with primary care and gastroenterology in 5-7 days, resume outpatient medication regiment, diet and activity
[2018-07-23] MEDS ORDERED: ASPIRIN 325 MG TABLET PO SCH (10:00)
[2018-07-23] MEDS ORDERED: LOSARTAN POTASSIUM 25 MG TABLET PO SCH (10:00)
[2018-07-23] MEDS ORDERED: ISOSORBIDE MONONITRATE 30 MG TAB.ER.24H PO SCH (10:00)
[2018-07-23] MEDS ORDERED: FUROSEMIDE 40 MG TABLET PO SCH (10:00)
[2018-07-23] MEDS ORDERED: FENOFIBRATE NANOCRYSTALLIZED 145 MG TABLET PO SCH (10:00)
[2018-07-23] MEDS ORDERED: SITAGLIPTIN PHOSPHATE 50 MG TABLET PO SCH (10:00)
[2018-07-23] MEDS ORDERED: DOCUSATE SODIUM 100 MG CAPSULE PO SCH (10:00)
== END 2018-07-23 09:55 | disposition home or self-care (01) ==
LOC: ER 12:10 → EH 22:26 → 3W 07-23 02:33
PROVIDERS: ADMIT Internal Medicine; ATTEND Internal Medicine
PROC: 30233N1 Transfusion of Nonautologous Red Blood Cells into Peripheral Vein, Percutaneous Approach (ICD-10-PCS; principal; 2018-07-22)
PROC: 30233N1 Transfusion of Nonautologous Red Blood Cells into Peripheral Vein, Percutaneous Approach (ICD-10-PCS; 2018-07-23)
DX: R06.02 Shortness of breath (principal); D64.9 Anemia, unspecified; Q27.33 Arteriovenous malformation of digestive system vessel; E11.22 Type 2 diabetes mellitus with diabetic chronic kidney disease; I13.0 Hypertensive heart and chronic kidney disease with heart failure and stage 1 through stage 4 chronic kidney disease, or unspecified chronic kidney disease; N18.3 Chronic kidney disease, stage 3 (moderate); I50.9 Heart failure, unspecified; N17.9 Acute kidney failure, unspecified; K64.4 Residual hemorrhoidal skin tags; I25.119 Atherosclerotic heart disease of native coronary artery with unspecified angina pectoris; J44.9 Chronic obstructive pulmonary disease, unspecified; I25.2 Old myocardial infarction; Z79.82 Long term (current) use of aspirin; Z87.891 Personal history of nicotine dependence; Z79.899 Other long term (current) drug therapy; Z95.1 Presence of aortocoronary bypass graft; Z79.4 Long term (current) use of insulin; Z86.73 Personal history of transient ischemic attack (TIA), and cerebral infarction without residual deficits; Z90.49 Acquired absence of other specified parts of digestive tract; Z82.49 Family history of ischemic heart disease and other diseases of the circulatory system; Z98.84 Bariatric surgery status; Z98.51 Tubal ligation status
CPT/HCPCS: 93005; 99285; 96360; 96361; 51702; 86900; 86901; 36415 ×2; 82553; 36430; 86870; 86850; 86922; 82962; 82607; 82550; 82728; 82746; 83540; 83550; 85025 ×2; 82272; 85045; 80048 ×2; 80053; 81001; 84484; 86920; 83880; 71045; 93010; P9016 ×2; J7030

== ENCOUNTER → 2018-09-22 | Outpatient (CLI) | payer MEDICARE, MEDICAID ==
[2018-09-22 16:59] LABS: ABSOLUTE EOSINOPHILS # (AUTO) 0.2 10^3/uL (0.0-0.6); ABSOLUTE LYMPHOCYTES (AUTO) 1.1 10^3/uL (0.5-4.7); ABSOLUTE MONOCYTES (AUTO) 0.3 10^3/uL (0.1-1.4); ABSOLUTE NEUT (AUTO) 2.7 10^3/uL (1.7-8.2); BASOPHILS % (AUTO) 0.7 % (0-2); HEMATOCRIT 26.9 % (36.0-47.0); LYMPHOCYTES % (AUTO) 24.6 % (13-45); MEAN CORPUSCULAR HEMOGLOBIN 31.4 pg (27.0-33.4); MEAN CORPUSCULAR HGB CONC 33.5 g/dL (32.0-36.0); MEAN CORPUSCULAR VOLUME 94 fl (80-97); MONOCYTES % (AUTO) 6.8 % (3-13); PLATELET COUNT 159 10^3/uL (150-450); RED BLOOD COUNT 2.86 10^6/uL (3.72-5.28); RED CELL DISTRIBUTION WIDTH 15.1 % (11.5-14.0); SEGMENTED NEUTROPHILS % (AUTO) 63.9 % (42-78); TOTAL CELLS COUNTED % (AUTO) 100 %; WHITE BLOOD COUNT 4.3 10^3/uL (4.0-10.5)
--- NOTE | 2018-09-22 17:00 | RADIOLOGY REPORT (SQ) ---
EXAM DESCRIPTION: CHEST PA/LATERAL COMPLETED DATE/TIME: 09/22/2018 4:50 pm REASON FOR STUDY: COPD EXACERBATION J44.1 COMPARISON: Chest films 07/22/2018, 04/21/2018, 04/11/2016 EXAM PARAMETERS: NUMBER OF VIEWS: two views TECHNIQUE: Digital Frontal and Lateral radiographic views of the chest acquired. RADIATION DOSE: NA LIMITATIONS: none FINDINGS: LUNGS AND PLEURA: Bandlike scarring or atelectasis in the left upper lobe. This is unchan ged from prior studies. No acute infiltrates. No pleural effusion. No pneumothorax. MEDIASTINUM AND HILAR STRUCTURES: No masses or contour abnormalities. HEART AND VASCULAR STRUCTURES: Borderline cardiomegaly, stable. Old sternotomy for CABG BONES: No acute findings. HARDWARE: Clips right upper quadrant post cholecystectomy OTHER: No other significant finding. IMPRESSION: No acute findings. TECHNICAL DOCUMENTATION: JOB ID: [id number] [employer]- All Rights Reserved Reading location - IP/workstation name: [email or web address]
[2018-09-22 17:22] LABS: ANION GAP 12 (5-19); BLOOD UREA NITROGEN 34 mg/dL (7-20); CALCIUM 8.5 mg/dL (8.4-10.2); CARBON DIOXIDE 26 mmol/L (22-30); CHLORIDE 102 mmol/L (98-107); GLUCOSE 256 mg/dL (75-110); POTASSIUM 5.3 mmol/L (3.6-5.0); SODIUM 139.9 mmol/L (137-145)
[2018-09-25 22:36] LABS: INFLUENZA A AB (SERUM) CF Negative (Neg:<1:8)
[2018-09-26 08:22] LABS: INFLUENZA B AB (SERUM) CF Negative (Neg:<1:8)
== END ==
LOC: OD 16:15
PROVIDERS: ATTEND Family Medicine
DX: J44.1 Chronic obstructive pulmonary disease with (acute) exacerbation (principal); I50.9 Heart failure, unspecified; I51.7 Cardiomegaly; Z95.1 Presence of aortocoronary bypass graft
CPT/HCPCS: 36415; 71046; 80048; 83880; 85025; 86710

== ENCOUNTER → 2018-09-30 | Outpatient (CLI) | payer MEDICARE, MEDICAID ==
[2018-09-30 15:56] LABS: ALANINE AMINOTRANSFERASE 10 U/L (9-52); ALBUMIN 3.3 g/dL (3.5-5.0); ALKALINE PHOSPHATASE 67 U/L (38-126); ANION GAP 12 (5-19); ASPARTATE AMINO TRANSFERASE 17 U/L (14-36); BILIRUBIN,DIRECT 0.3 mg/dL (0.0-0.4); BILIRUBIN,TOTAL 0.4 mg/dL (0.2-1.3); BLOOD UREA NITROGEN 36 mg/dL (7-20); CALCIUM 8.5 mg/dL (8.4-10.2); CARBON DIOXIDE 27 mmol/L (22-30); CHLORIDE 99 mmol/L (98-107); GLUCOSE 243 mg/dL (75-110); POTASSIUM 4.9 mmol/L (3.6-5.0); SODIUM 138.1 mmol/L (137-145); TOTAL PROTEIN 6.1 g/dL (6.3-8.2)
== END ==
LOC: OD 15:02
PROVIDERS: ATTEND Internal Medicine Cardiovascular Disease
DX: N18.3 Chronic kidney disease, stage 3 (moderate) (principal)
CPT/HCPCS: 36415; 80053

== ENCOUNTER 2019-01-06 14:08 | Emergency (ER) | payer MEDICARE, MEDICAID ==
[2019-01-06] MEDS ORDERED: OXYCODONE-ACETAMINOPHEN 5-325 MG TABLET PO ONE (14:46)
--- NOTE | 2019-01-06 14:50 | ER Document Report ---
ED General - General Chief Complaint: Shortness Of Breath Stated Complaint: DIFFICULTY BREATHING Time Seen by Provider: 01/06/19 14:40 Primary Care Provider: FLACO SIMON MD [Primary Care Provider] - Follow up as needed Notes: Chief complaint: fall History of complain:( obtained from----patient) 73 years old female with a history of multiple medical problems, including asthma, was walking with a walker while she was trying to get into the cough could not make it and fell on her lower back. And people helped her to stand up subsequently came to the ER with a complaint of pain over the right lower back right hip and right ankle. Moderate intensity. Denies any head injury. Denies any neck pain denies any constitutional symptoms. Onset: Just prior to arrival sudden Duration: Just prior to arrival Severity: Moderate Quality: Sharp Context: As described above Exacerbating factor and relieving factors: Any movement of the right hip or ankle REVIEW OF SYSTEMS: CONSTITUTIONAL : Denies fever, chills, or sweats. Denies recent illness. EENT: Denies eye, ear, throat, or mouth pain or symptoms. Denies nasal or sinus congestion or discharge. Denies throat, tongue, or mouth swelling or difficulty swallowing. CARDIOVASCULAR: Denies chest pain. Denies palpitations or racing or irregular heart beat. Denies ankle edema. RESPIRATORY: Denies cough, cold, or chest congestion. Denies shortness of breath, difficulty breathing, or wheezing. GASTROINTESTINAL: Denies distention. Denies nausea, vomiting, or diarrhea. Denies blood in vomitus, stools, or per rectum. Denies black, tarry stools. Denies constipation. GENITOURINARY: Denies difficulty urinating, painful urination, burning, frequency, blood in urine, or discharge. FEMALE GENITOURINARY: Denies vaginal bleeding, heavy or abnormal periods, irregular periods. Denies vaginal discharge or odor. PSYCHIATRIC: Denies anxiety or stress. Denies depression, suicidal ideation, or homicidal ideation. ALL OTHER SYSTEMS REVIEWED AND NEGATIVE. PHYSICAL EXAMINATION: GENERAL: Morbid obesity seems to be in moderate discomfort HEAD: Atraumatic, normocephalic. EYES: Pupils equal round and reactive to light, extraocular movements intact, conjunctiva are normal. ENT: Nares patent, oropharynx clear without exudates. Moist mucous membranes. NECK: Normal range of motion, supple without lymphadenopathy LUNGS: Breath sounds clear to auscultation bilaterally and equal. No wheezes rales or rhonchi. HEART: Regular rate and rhythm without murmurs ABDOMEN: Soft, nontender, nondistended abdomen. No guarding, no rebound. No masses appreciated. Musculoskeletal: Lower back sharp tenderness noted over the right sacroiliac joint region, right hip, flexion extension of the right hip was painful. Right knee able to flex and extend without discomfort Right ankle by malleolus slight swelling noted and tenderness. She could not perform plantar flexion dorsiflexion. NEUROLOGICAL: Cranial nerves grossly intact. Normal speech, normal gait. Normal sensory, motor exams PSYCH: Normal mood, normal affect. SKIN: Warm, Dry, normal turgor, no rashes or lesions noted. Dictation was performed using [employer] voice recognition software TRAVEL OUTSIDE OF THE [place] IN LAST 30 DAYS: No - HPI Notes: Dictated - Related Data Allergies/Adverse Reactions: amoxicillin trihydrate [From Augmentin] Allergy (Severe, Verified 01/06/19 14:12) stomach cramps, n and v, rash butalbital [From Fiorinal] Allergy (Unknown, Verified 01/06/19 14:12) rash metformin HCl [From Glucophage] Allergy (Unknown, Verified 01/06/19 14:12) rash Potassium Clavulanate * [From Augmentin] Adverse Reaction (Unknown, Verified 01/06/19 14:12) nausea, vomit, epig pain Past Medical History - Social History Smoking Status: Former Smoker Smoking Education Provided: No Frequency of alcohol use: None Drug Abuse: None Lives with: Family Family History: Reviewed & Not Pertinent, DM, Hypertension - Past Medical History Cardiac Medical History: Reports: Hx Congestive Heart Failure, Hx Coronary Artery Disease - BYPASS 2001, Hx Heart Attack, Hx Hypercholesterolemia, Hx Hypertension - MEDS Pulmonary Medical History: Reports: Hx Asthma, Hx Bronchitis, Hx COPD, Hx Pneumonia, Hx Sleep Apnea - no cpap insurance does not cover Neurological Medical History: Reports: Hx Cerebrovascular Accident - X4. Denies: Hx Seizures Endocrine Medical History: Reports: Hx Diabetes Mellitus Type 2 - DX [place] 1994 Renal/ Medical History: Denies: Hx Peritoneal Dialysis GI Medical History: Reports: Hx Gastroesophageal Reflux Disease. Denies: Hx Pancreatitis Musculoskeletal Medical History: Reports Hx Arthritis - GENERALIZE Psychiatric Medical History: Reports: Hx Depression Past Surgical History: Reports: Hx Cholecystectomy, Hx Gastric Bypass Surgery - 2001 and stent, Hx Open Heart Surgery - 2001 TRIPLE BYPASS, Hx Tubal Ligation. Denies: Hx Hysterectomy - Immunizations Hx Diphtheria, Pertussis, Tetanus Vaccination: No Hx Pneumococcal Vaccination: 11/11/14 Review of Systems - Review of Systems Notes: Dictated Physical Exam - Vital signs Vitals: Temp Pulse Resp BP Pulse Ox 97.4 F 56 L 16 105/51 L 91 L 01/06/19 14:16 01/06/19 14:16 01/06/19 14:16 01/06/19 14:16 01/06/19 14:16 - Notes Notes: Dictated Course - Vital Signs Vital signs: Temp Pulse Resp BP Pulse Ox 97.4 F 56 L 16 105/51 L 91 L 01/06/19 14:16 01/06/19 14:16 01/06/19 14:16 01/06/19 14:16 01/06/19 14:16 - Laboratory Laboratory results interpreted by me: 01/06/19 15:18 Urine Blood SMALL H Ur Leukocyte Esterase LARGE H Urine Ascorbic Acid 40 H - Diagnostic Test Radiology reviewed: Reports reviewed - X-ray of the lumbar spine right hip and ankle shows no fractures according to radiologist. Discharge - Discharge Clinical Impression: Fall Qualifiers: Encounter type: initial encounter Qualified Code(s): W19.XXXA - Unspecified fall, initial encounter Back pain Qualifiers: Back pain location: low back pain Chronicity: acute Back pain laterality: right Sciatica presence: without sciatica Qualified Code(s): M54.5 - Low back pain Ankle sprain Qualifiers: Encounter type: initial encounter Involved ligament of ankle: other ligament Laterality: right Qualified Code(s): S93.491A - Sprain of other ligament of right ankle, initial encounter UTI (urinary tract infection) Qualifiers: Urinary tract infection type: acute cystitis Hematuria presence: without hematuria Qualified Code(s): N30.00 - Acute cystitis without hematuria Condition: Fair Disposition: HOME, SELF-CARE Instructions: Urinary Tract Infection ([facility]), Low Back Pain ([facility]), Sprained Ankle ([facility]) Prescriptions: Nitrofurantoin Macrocrystal [Macrodantin] 100 mg PO QID #30 capsule Referrals: FLACO SIMON MD [Primary Care Provider] - Follow up as needed
--- NOTE | 2019-01-06 15:48 | RADIOLOGY REPORT (SQ) ---
EXAM DESCRIPTION: ANKLE RIGHT COMPLETE COMPLETED DATE/TIME: 01/06/2019 3:28 pm REASON FOR STUDY: fall, injury to lower back, right hip, right ankle COMPARISON: None. NUMBER OF VIEWS: Three views. TECHNIQUE: AP, lateral, and oblique radiographic images acquired of the right ankle. LIMITATIONS: None. FINDINGS: MINERALIZATION: Normal. BONES: No acute fracture or dislocation. No worrisome bone lesions. Small dorsal and plantar calcan eal spurs. JOINTS: No tibiotalar joint effusion. Normal alignment at the ankle mortise SOFT TISSUES: Diffuse medial soft tissue swelling. No soft tissue gas or radiopaque foreign body OTHER: No other significant finding. IMPRESSION: Medial soft tissue swelling. No fracture TECHNICAL DOCUMENTATION: JOB ID: [id number] [employer]- All Rights Reserved Reading location - IP/workstation name: [email or web address]
--- NOTE | 2019-01-06 15:49 | RADIOLOGY REPORT (SQ) ---
EXAM DESCRIPTION: HIP RIGHT AP/LATERAL COMPLETED DATE/TIME: 01/06/2019 3:28 pm REASON FOR STUDY: fall, injury to lower back, right hip, right ankle COMPARISON: None. NUMBER OF VIEWS: Two views. TECHNIQUE: AP pelvis and additional frog-leg view of the right hip. LIMITATIONS: Large patient FINDINGS: MINERALIZATION: Normal. RIGHT HIP: No fracture or dislocation. No worrisome bone lesions. Mild joint space narrowing and ren[place] spurring LEFT HIP: No fracture or dislocation. No worrisome bone lesions. Mild joint space narrowing and bon y spurring PUBIS AND ISCHIUM: No fracture. PELVIS: No fracture. SACRUM: No fracture or dislocation. No worrisome bone lesions. SOFT TISSUES: No findings. OTHER: No other significant finding. IMPRESSION: No acute fracture or malalignment at the right hip TECHNICAL DOCUMENTATION: JOB ID: [id number] [employer]- All Rights Reserved Reading location - IP/workstation name: [email or web address]
--- NOTE | 2019-01-06 15:51 | RADIOLOGY REPORT (SQ) ---
EXAM DESCRIPTION: L SPINE WHOLE COMPLETED DATE/TIME: 01/06/2019 3:28 pm REASON FOR STUDY: fall, injury to lower back, right hip, right ankle COMPARISON: 04/19/2015 NUMBER OF VIEWS: Five views including obliques. TECHNIQUE: AP, lateral, oblique, and sacral radiographic images acquired of the lumbar spine. LIMITATIONS: None. FINDINGS: MINERALIZATION: Normal. SEGMENTATION: Sacralized L5. ALIGNMENT: Convex leftward lumbar curvature VERTEBRAE: Maintained height. No fracture or worrisome bone lesion. DISCS: High-grade disc space loss of height with vacuum phenomenon at each lumbar disc level. POSTERIOR ELEMENTS: Diffuse facet arthropathy. HARDWARE: None in the spine. Clips right upper quadrant post cholecystectomy. PARASPINAL SOFT TISSUES: Calcified abdominal aorta without calcified aneurysm. PELVIS: Intact as visualized. No fractures or worrisome bone lesions. SI joints intact. OTHER: No other significant finding. IMPRESSION: No acute findings TECHNICAL DOCUMENTATION: JOB ID: [id number] [employer]- All Rights Reserved Reading location - IP/workstation name: [email or web address]
[2019-01-06 16:03] LABS: APPEARANCE,URINE SLIGHTLY-CLOUDY; BILIRUBIN,URINE NEGATIVE (NEGATIVE); COLOR,URINE YELLOW; GLUCOSE, URINE NEGATIVE (NEGATIVE); KETONES,URINE NEGATIVE (NEGATIVE); LEUKOCYTE ESTERASE,URINE LARGE (NEGATIVE); NITRITE,URINE NEGATIVE (NEGATIVE); PROTEIN,URINE NEGATIVE (NEGATIVE); URINE SPECIFIC GRAVITY 1.011; UROBILINOGEN,URINE NEGATIVE mg/dL (<2.0)
[2019-01-06 16:49] VITALS: BP 127/52
== END 2019-01-06 16:49 | disposition home or self-care (01) ==
LOC: ER 14:08
DX: N30.00 Acute cystitis without hematuria (principal); S93.491A Sprain of other ligament of right ankle, initial encounter; M54.5 Low back pain; R06.02 Shortness of breath; R06.00 Dyspnea, unspecified; W08.XXXA Fall from other furniture, initial encounter; I50.9 Heart failure, unspecified; I25.10 Atherosclerotic heart disease of native coronary artery without angina pectoris; I25.2 Old myocardial infarction; E78.00 Pure hypercholesterolemia, unspecified; E66.01 Morbid (severe) obesity due to excess calories; I11.0 Hypertensive heart disease with heart failure; E11.9 Type 2 diabetes mellitus without complications; Z90.49 Acquired absence of other specified parts of digestive tract; Z98.84 Bariatric surgery status; Z95.1 Presence of aortocoronary bypass graft; Z98.51 Tubal ligation status; Z88.0 Allergy status to penicillin
CPT/HCPCS: 99283; 81001; 73610; 73502; 72110; A9270

== ENCOUNTER 2019-01-14 07:33 | Inpatient (IN) | payer MEDICARE, MEDICAID ==
--- NOTE | 2019-01-14 07:49 | ER Document Report ---
ED General - General Stated Complaint: FALL,WEAKNESS Time Seen by Provider: 01/14/19 07:37 Primary Care Provider: DANI PANDA DO [Primary Care Provider] - Follow up as needed Cannot obtain history due to: Uncooperative Notes: 73-year-old female presents to the emergency room via EMS for right-sided weakness. The patient stated spin the last 2 or 3 days she is been having increased right-sided weakness she has a history of stroke with residual weakness on the left however the right now has been weak the last several days she really cannot come up with a exact time of onset but stated it is been several days of the symptoms she had made an appointment with her doctor but was waiting to get in. However she is been falling a lot more over the last several days she fell and hit her head. She was going to the bathroom this morning and fell and this is what precipitated the called EMS. Patient denies chest pain denies shortness of breath denies fever chills cough or sore throat. Complains of right arm and leg weakness. TRAVEL OUTSIDE OF THE [place] IN LAST 30 DAYS: No - Related Data Allergies/Adverse Reactions: amoxicillin trihydrate [From Augmentin] Allergy (Severe, Verified 01/06/19 14:12) stomach cramps, n and v, rash butalbital [From Fiorinal] Allergy (Unknown, Verified 01/06/19 14:12) rash metformin HCl [From Glucophage] Allergy (Unknown, Verified 01/06/19 14:12) rash Potassium Clavulanate * [From Augmentin] Adverse Reaction (Unknown, Verified 01/06/19 14:12) nausea, vomit, epig pain Past Medical History - Social History Smoking Status: Former Smoker Family History: Reviewed & Not Pertinent, DM, Hypertension - Past Medical History Cardiac Medical History: Reports: Hx Congestive Heart Failure, Hx Coronary Artery Disease - BYPASS 2001, Hx Heart Attack, Hx Hypercholesterolemia, Hx Hy pertension - MEDS Pulmonary Medical History: Reports: Hx Asthma, Hx Bronchitis, Hx COPD, Hx Pneumonia, Hx Sleep Apnea - no cpap insurance does not cover Neurological Medical History: Reports: Hx Cerebrovascular Accident - X4. Denies: Hx Seizures Endocrine Medical History: Reports: Hx Diabetes Mellitus Type 2 - DX [place] 1994 Renal/ Medical History: Denies: Hx Peritoneal Dialysis GI Medical History: Reports: Hx Gastroesophageal Reflux Disease. Denies: Hx Pancreatitis Musculoskeletal Medical History: Reports Hx Arthritis - GENERALIZE Psychiatric Medical History: Reports: Hx Depression Past Surgical History: Reports: Hx Cardiac Catheterization - w/stent, Hx Section, Hx Cholecystectomy, Hx Gastric Bypass Surgery - 2001 and stent, Hx Open Heart Surgery - 2001 TRIPLE BYPASS, Hx Rectal Surgery, Hx Tubal Ligation. Denies: Hx Hysterectomy - Immunizations Hx Diphtheria, Pertussis, Tetanus Vaccination: No Hx Pneumococcal Vaccination: 11/11/14 Review of Systems - Review of Systems Constitutional: denies: Chills, Fever EENT: denies: Throat pain Cardiovascular: Dizziness, Lightheaded Respiratory: Short of breath Gastrointestinal: Diarrhea. denies: Nausea, Vomiting Neurological/Psychological: Weakness, Gait changes, Headaches, Numbness. denies: Lost consciousness -: Yes All other systems reviewed and negative Physical Exam - Vital signs Vitals: Temp Pulse Resp BP Pulse Ox 98.0 F 57 L 15 150/69 H 100 01/14/19 07:45 01/14/19 07:45 01/14/19 07:45 01/14/19 07:45 01/14/19 07:45 - Notes Notes: GENERAL_APPEARANCE: well_nourished, alert, cooperative, patient appears un comfortable VITALS: reviewed, see vital signs table. HEAD: no_swelling\tenderness on the head. EYES: PERRL, EOMI, conjunctiva_clear. Right eyebrow contusion, right small nasal sub-conjunctival hematoma NOSE: no_nasal_discharge. MOUTH: (-)decreased moisture. THROAT: no_tonsilar_inflammation, no_airway_obstruction. no_lymphadenopathy NECK: supple, diffuse_neck_tenderness, (-)thyromegaly. BACK: no_back_tenderness. CHEST_WALL: no_chest_tenderness. LUNGS: no_wheezing, no_rales, no_rhonchi, (-)accessory muscle use, good air exchange bilateral. HEART: normal_rate, normal_rhythm, normal_S1, normal_S2, (-)S3, (-)S4, no_murmur, no_rub. ABDOMEN: normal_BS, soft, no_abd_tenderness, (-)guarding, (-)rebound, no_organomegaly, no_abd_masses. EXTREMITIES: good pulses in all_extremities, no_swelling\tenderness in the extremities, no_edema. SKIN: warm, dry, good_color, no_rash. MENTAL_STATUS: speech_clear, oriented_X_3, normal_affect, responds_appropriately to questions. NEURO: Motorright-sided weakness arm and leg ,neg Sensory Deficits on exam, CN 2-12 intact, DTR 2+ symmetric x 4, No cerbellar signs NIH Stroke Scale/Score (NIHSS) RESULT SUMMARY: 2 points NIH Stroke Scale INPUTS: 1A: Level of consciousness > 0 = Alert; keenly responsive 1B: Ask month and age > 0 = Both questions right 1C: 'Blink eyes' & 'squeeze hands' > 0 = Performs both tasks 2: Horizontal extraocular movements > 0 = Normal 3: Visual moreno > 0 = No visual loss 4: Facial palsy > 0 = Normal symmetry 5A: Left arm motor drift > 0 = No drift for 10 seconds 5B: Right arm motor drift > 1 = Drift, but doesn't hit bed 6A: Left leg motor drift > 0 = No drift for 5 seconds 6B: Right leg motor drift > 1 = Drift, but doesn't hit bed 7: Limb Ataxia > 0 = No ataxia 8: Sensation > 0 = Normal; no sensory loss 9: Language/aphasia > 0 = Normal; no aphasia 10: Dysarthria > 0 = Normal 11: Extinction/inattention > 0 = No abnormality Course - Re-evaluation Re-evalutation: 01/14/19 07:49 73-year-old female who comes in with several days of right-sided weakness falls dizziness. We will scan the patient's head to assess for stroke or intracranial hemorrhage. The unfortunate part is that this is been going on for 2 or 3 days the patient cannot pin down an exact time last normal. This excludes the patient is from thrombolytics and/or intervention. The patient will have a full stroke workup here and likely be admitted for MRI and further stroke workup and prophylaxis against future strokes. 01/14/19 13:30 Patient's potassium was elevated. She has a history of renal insufficiency and sees Dr. Steinberg. We gave her Kayexalate and I gave her IV fluids. We gave her the usual cocktail of medications to get the potassium down. Potassium has come down on her recheck creatinine is improved. Patient's right-sided weakness I think is subacute. Her and her are difficult to get a history from. She has had stroke with left-sided deficits but not right. Her pound attendant strength is weak on the right side. We have improved her hydration status and potassium. I think it is prudent to hospitalize the patient for further stroke workup. 01/14/19 13:32 It is of note the EKG machine read the EKG as A. fib however I see obvious P waves there is artifact but this looks to be a sinus rhythm to me. Not A. fib. - Vital Signs Vital signs: Temp Pulse Resp BP Pulse Ox 98.0 F 57 L 10 L 134/50 H 96 01/14/19 07:45 01/14/19 07:45 01/14/19 12:31 01/14/19 12:31 01/14/19 12:31 - Laboratory Result Diagrams: 01/14/19 07:50 01/14/19 12:30 Laboratory results interpreted by me: 01/14/19 01/14/19 01/14/19 07:50 07:50 10:00 RBC 2.86 L Hgb 8.7 L Hct 26.3 L RDW 14.8 H Plt Count 119 L Potassium 6.3 H* Chloride BUN 63 H Creatinine 3.56 H Est GFR ( Amer) 15 L Est GFR (Non-Af Amer) 13 L Glucose 144 H Calcium Direct Bilirubin 0.5 H Ur Leukocyte Esterase LARGE H Urine Ascorbic Acid 20 H 01/14/19 12:30 RBC Hgb Hct RDW Plt Count Potassium Chloride 110 H BUN 52 H Creatinine 3.35 H Est GFR ( Amer) 16 L Est GFR (Non-Af Amer) 14 L Glucose Calcium 8.0 L Direct Bilirubin Ur Leukocyte Esterase Urine Ascorbic Acid - Diagnostic Test Radiology reviewed: Reports reviewed Radiology results interpreted by me: 01/14/19 13:23 Chest X-Ray 01/14/19 07:42 IMPRESSION: NO ACUTE RADIOGRAPHIC FINDING IN THE CHEST. Head CT 01/14/19 07:42 IMPRESSION: NORMAL BRAIN CT WITHOUT CONTRAST. EVIDENCE OF ACUTE STROKE: NO. Cervical Spine CT 01/14/19 07:43 IMPRESSION: CHRONIC DEGENERATIVE CHANGES. NO ACUTE FINDINGS. Facial Bones CT 01/14/19 07:43 IMPRESSION: 1. No facial fracture evident. - EKG Interpretation by Me EKG shows normal: Sinus rhythm Rate: Normal - At 58 Rhythm: NSR Additional EKG results interpreted by me: 01/14/19 13:31 It is of note that the machine read this is A. fib but there are obvious P waves. This is a sinus rhythm. Critical Care Note - Critical Care Note Total time excluding time spent on procedures (mins): 31 Comments: Neuro deficits with hyperkalemia Discharge - Discharge Clinical Impression: Right sided weakness, Hyperkalemia, Renal insufficiency, CKD (chronic kidney disease), stage III Fall Qualifiers: Encounter type: initial encounter Qualified Code(s): W19.XXXA - Unspecified fall, initial encounter Condition: Good Disposition: ADMITTED OBSERVATION Admitting Provider: Hospitalist Unit Admitted: Telemetry Referrals: DANI PANDA DO [Primary Care Provider] - Follow up as needed
[2019-01-14 08:15] LABS: ABSOLUTE EOSINOPHILS # (AUTO) 0.3 10^3/uL (0.0-0.6); ABSOLUTE MONOCYTES (AUTO) 0.5 10^3/uL (0.1-1.4); ABSOLUTE NEUT (AUTO) 4.9 10^3/uL (1.7-8.2); BASOPHILS % (AUTO) 0.4 % (0-2); HEMATOCRIT 26.3 % (36.0-47.0); HEMOGLOBIN 8.7 g/dL (12.0-15.5); LYMPHOCYTES % (AUTO) 15.2 % (13-45); MEAN CORPUSCULAR HEMOGLOBIN 30.4 pg (27.0-33.4); MEAN CORPUSCULAR VOLUME 92 fl (80-97); MONOCYTES % (AUTO) 7.7 % (3-13); PLATELET COUNT 119 10^3/uL (150-450); RED BLOOD COUNT 2.86 10^6/uL (3.72-5.28); RED CELL DISTRIBUTION WIDTH 14.8 % (11.5-14.0); SEGMENTED NEUTROPHILS % (AUTO) 72.7 % (42-78); TOTAL CELLS COUNTED % (AUTO) 100 %; WHITE BLOOD COUNT 6.8 10^3/uL (4.0-10.5)
[2019-01-14 08:16] LABS: INTERNATIONAL RATION (INR) 1.07; PROTHROMBIN TIME 14.4 SEC (11.4-15.4)
[2019-01-14 08:31] LABS: ALANINE AMINOTRANSFERASE 12 U/L (9-52); ALBUMIN 4.1 g/dL (3.5-5.0); ALKALINE PHOSPHATASE 55 U/L (38-126); ANION GAP 13 (5-19); ASPARTATE AMINO TRANSFERASE 29 U/L (14-36); BILIRUBIN,DIRECT 0.5 mg/dL (0.0-0.4); BILIRUBIN,TOTAL 0.6 mg/dL (0.2-1.3); BLOOD UREA NITROGEN 63 mg/dL (7-20); CALCIUM 8.5 mg/dL (8.4-10.2); CARBON DIOXIDE 24 mmol/L (22-30); CHLORIDE 102 mmol/L (98-107); CREATINE KINASE 115 U/L (30-135); GLUCOSE 144 mg/dL (75-110); SODIUM 138.9 mmol/L (137-145); TOTAL PROTEIN 7.1 g/dL (6.3-8.2)
--- NOTE | 2019-01-14 08:33 | RADIOLOGY REPORT (SQ) ---
EXAM DESCRIPTION: CHEST SINGLE VIEW COMPLETED DATE/TIME: 01/14/2019 8:17 am REASON FOR STUDY: Right Sided Weakness COMPARISON: Chest films 09/22/2018, 07/22/2018, 02/21/2018 EXAM PARAMETERS: NUMBER OF VIEWS: One view. TECHNIQUE: Single frontal radiographic view of the chest acquired. RADIATION DOSE: NA LIMITATIONS: None. FINDINGS: LUNGS AND PLEURA: No opacities, masses or pneumothorax. No pleural effusion. MEDIASTINUM AND HILAR STRUCTURES: No masses. Contour normal. HEART AND VASCULAR STRUCTURES: Old sternotomy for CABG. Stable borderline cardiomegaly BONES: No acute findings. HARDWARE: None in the chest. OTHER: No other significant finding. IMPRESSION: NO ACUTE RADIOGRAPHIC FINDING IN THE CHEST. TECHNICAL DOCUMENTATION: JOB ID: [id number] [employer]- All Rights Reserved Reading location - IP/workstation name: [email or web address]
[2019-01-14 08:43] LABS: POTASSIUM 6.3 mmol/L (3.6-5.0)
--- NOTE | 2019-01-14 09:20 | RADIOLOGY REPORT (SQ) ---
EXAM DESCRIPTION: CT HEAD WITHOUT COMPLETED DATE/TIME: 01/14/2019 9:05 am REASON FOR STUDY: Right Sided Weakness COMPARISON: 03/21/2016 TECHNIQUE: Axial images acquired through the brain without intravenous contrast. Images reviewed wi th bone, brain and subdural windows. Additional sagittal and coronal reconstructions were generated. Images stored on PACS. All CT scanners at this facility use dose modulation, iterative reconstruction, and/or weight based d osing when appropriate to reduce radiation dose to as low as reasonably achievable (ALARA). [facility]: Dose Right [facility]: CareDose [facility]: Dose Right [facility]: Teradose 4D [facility]: [employer] RADIATION DOSE: CT Rad equipment meets quality standard of care and radiation dose reduction techniq ues were employed. CTDIvol: 53.2 mGy. DLP: 991 mGy-cm. mGy. LIMITATIONS: None. FINDINGS: VENTRICLES: Normal size and contour. CEREBRUM: No masses. No acute hemorrhage. No midline shift. No evidence for acute infarction. Minimal bifrontal deep periventricular white matter low attenuation from chronic small vessel ischemi c change. Tiny chronic lacunar infarct left basal ganglia. CEREBELLUM: No masses. No hemorrhage. No alteration of density. No evidence for acute infarction. EXTRAAXIAL SPACES: No fluid collections. No masses. ORBITS AND GLOBE: No intra- or extraconal masses. Normal contour of globe without masses. CALVARIUM: No fracture. PARANASAL SINUSES: No fluid or mucosal thickening. SOFT TISSUES: No mass or hematoma. OTHER: No other significant finding. IMPRESSION: NORMAL BRAIN CT WITHOUT CONTRAST. EVIDENCE OF ACUTE STROKE: NO. COMMENT: Quality ID # [id number]: Final reports with documentation of one or more dose reduction techniques (e.g., Automated exposure control, adjustment of the mA and/or kV according to patient size, use of iterative reconstruction technique) TECHNICAL DOCUMENTATION: JOB ID: [id number] [employer]- All Rights Reserved Reading location - IP/workstation name: [email or web address]
--- NOTE | 2019-01-14 09:24 | RADIOLOGY REPORT (SQ) ---
EXAM DESCRIPTION: CT CERVICAL SPINE WITHOUT COMPLETED DATE/TIME: 01/14/2019 9:05 am REASON FOR STUDY: Fall head injury right sided weakness COMPARISON: CT brain same date TECHNIQUE: Axial images acquired through the cervical spine without intravenous contrast. Images re viewed with lung, soft tissue and bone windows. Reconstructed coronal and sagittal MPR images review ed. Images stored on PACS. All CT scanners at this facility use dose modulation, iterative reconstruction, and/or weight based d osing when appropriate to reduce radiation dose to as low as reasonably achievable (ALARA). [facility]: Dose Right [facility]: CareDose [facility]: Dose Right [facility]: Teradose 4D [facility]: [employer] RADIATION DOSE: CT Rad equipment meets quality standard of care and radiation dose reduction techniq ues were employed. CTDIvol: 25.3 mGy. DLP: 461 mGy-cm. mGy. LIMITATIONS: None. FINDINGS: ALIGNMENT: Anatomic. MINERALIZATION: Normal. VERTEBRAL BODIES: No fractures or dislocation. DISCS: Multilevel disc space narrowing with osteophytes. Mild central canal stenosis at C4-5, modera te central canal stenosis at C5-6, mild central canal narrowing at C6-7. FACETS, LATERAL MASSES, POSTERIOR ELEMENTS: Facet arthropathy. No fractures. No dislocation. No ac [place] findings. Moderate bilateral foraminal narrowing at C4-5, C5-6, and C6-7 HARDWARE: None in the spine. VISUALIZED RIBS: No fractures. LUNG APICES AND SOFT TISSUES: No significant or acute findings. OTHER: No other significant finding. IMPRESSION: CHRONIC DEGENERATIVE CHANGES. NO ACUTE FINDINGS. TECHNICAL DOCUMENTATION: JOB ID: [id number] Quality ID # [id number]: Final reports with documentation of one or more dose reduction techniques (e.g., Au tomated exposure control, adjustment of the mA and/or kV according to patient size, use of iterative reconstruction technique) 2010 [employer]- All Rights Reserved Reading location - IP/workstation name: [email or web address]
--- NOTE | 2019-01-14 09:32 | RADIOLOGY REPORT (SQ) ---
EXAM DESCRIPTION: CT FACIAL AREA WITHOUT COMPLETED DATE/TIME: 01/14/2019 9:05 am REASON FOR STUDY: Fall head injury right sided weakness COMPARISON: None. TECHNIQUE: Noncontrasted images through the facial bones and orbits windowed for bone and soft tissu e. Additional coronal and sagittal reconstructed images reviewed. All images stored on PACS. All CT scanners at this facility use dose modulation, iterative reconstruction, and/or weight based d osing when appropriate to reduce radiation dose to as low as reasonably achievable (ALARA). [facility]: Dose Right [facility]: CareDose [facility]: Dose Right [facility]: Teradose 4D [facility]: [employer] RADIATION DOSE: CT Rad equipment meets quality standard of care and radiation dose reduction techniq ues were employed. CTDIvol: 30.4 mGy. DLP: 606 mGy-cm. mGy. LIMITATIONS: None. FINDINGS: FACIAL BONES: No fracture or bone lesion. ORBITS: Intact. No fracture. Symmetric intact globes and retroorbital soft tissues. PARANASAL SINUSES: No significant mucosal thickening or fluid. 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 SOFT TISSUES: No mass or edema. INFERIOR BRAIN: See separate dedicated CT brain same date. Grossly normal as assessed. OTHER: No other significant finding. IMPRESSION: 1. No facial fracture evident. TECHNICAL DOCUMENTATION: JOB ID: [id number] Quality ID # [id number]: Final reports with documentation of one or more dose reduction techniques (e.g., Au tomated exposure control, adjustment of the mA and/or kV according to patient size, use of iterative reconstruction technique) 2010 [employer]- All Rights Reserved Reading location - IP/workstation name: [email or web address]
[2019-01-14] MEDS ORDERED: NORMAL SALINE 1000 ML 1,000 ML IV ONE (09:35)
[2019-01-14] MEDS ORDERED: CALCIUM GLUCONATE 1000 MG/10 ML INJ IV ONE (09:36)
[2019-01-14] MEDS ORDERED: SODIUM POLYSTYRENE SULFONATE 15 GM/60 ML PO ONE ×2 (09:36→10:00)
[2019-01-14] MEDS ORDERED: DEXTROSE 50%-WATER 25 GM/50 ML DISP.SYRIN IV ONE (09:37)
[2019-01-14] MEDS ORDERED: INSULIN REG, HUMAN 100 UNIT/ML 3 ML VIAL (PYX) IV ONE (09:37)
[2019-01-14 10:45] LABS: APPEARANCE,URINE SLIGHTLY-CLOUDY; BILIRUBIN,URINE NEGATIVE (NEGATIVE); COLOR,URINE YELLOW; GLUCOSE, URINE NEGATIVE (NEGATIVE); KETONES,URINE NEGATIVE (NEGATIVE); LEUKOCYTE ESTERASE,URINE LARGE (NEGATIVE); NITRITE,URINE NEGATIVE (NEGATIVE); PROTEIN,URINE NEGATIVE (NEGATIVE); URINE SPECIFIC GRAVITY 1.009; UROBILINOGEN,URINE NEGATIVE mg/dL (<2.0)
[2019-01-14] MEDS ORDERED: NORMAL SALINE 1000 ML 1,000 ML IV PRN (11:38)
[2019-01-14 13:01] LABS: ANION GAP 7 (5-19); BLOOD UREA NITROGEN 52 mg/dL (7-20); CARBON DIOXIDE 23 mmol/L (22-30); CHLORIDE 110 mmol/L (98-107); GLUCOSE 89 mg/dL (75-110); SODIUM 140.3 mmol/L (137-145)
[2019-01-14] MEDS: NORMAL SALINE 1000 ML 1,000 ML IV PRN (14:26)
--- NOTE | 2019-01-14 15:33 | PDOC H&P ---
History of Present Illness Admission Date/PCP: 01/14/19 14:18 DANI PANDA DO Patient complains of: weakness and recent fall History of Present Illness: PRECIOUS BURCH is a 73 year old female presents to the ER with complaint of a recent fall. She fell this morning and hit the side of her head. She had difficulty ambulating after that. When she was brought to the ER she was noted to have right-sided weakness. 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 Her and her stated last week she was treated for UTI. She was seen initially in the ER. And then followed up with her PCP her antibiotics were changed to Bactrim. Since that time she has not been eating or drinking very well. She has been feeling more unsteady on her feet but the right arm weakness is new since the fall today. She does have a history of cardiovascular disease she has been seen by a cigar head perforator over a who has recommended that she have a cardiac cath. They have been waiting for her kidneys to improve prior to doing the catheterization. Past Medical History Cardiac Medical History: Reports: Congestive Heart Failure, Coronary Artery Disease - BYPASS 2001, Myocardial Infarction, Hyperlipidema, Hypertension - MEDS Pulmonary Medical History: Reports: Asthma, Bronchitis, Chronic Obstructive Pulmonary Disease (COPD), Pneumonia, Sleep Apnea - no cpap insurance does not cover Neurological Medical History: Denies: Seizures Endocrine Medical History: Reports: Diabetes Mellitus Type 2 - DX [place] 1994 GI Medical History: Reports: Gastroesophageal Reflux Disease Musculoskeltal Medical History: Reports: Arthritis - GENERALIZE Psychiatric Medical History: Reports: Depression Hematology: Reports: Anemia - HX Denies: Hemophilia, Sickle Cell Disease Past Surgical History Past Surgical History: Reports: Cardiac Catheterization - w/stent, Section, Cholecystectomy, Gastric Bypass Surgery - 2001 and stent, Tubal Ligation Denies: Amputation, Hysterectomy Social History Smoking Status: Former Smoker Frequency of Alcohol Use: None Hx Recreational Drug Use: No Hx Prescription Drug Abuse: No Family History Family History: DM, Hypertension Parental Family History Reviewed: Yes Children Family History Reviewed: Yes Sibling(s) Family History Reviewed.: Yes Medication/Allergy Home Medications: Albuterol Sulfate [Proair HFA Inhalation Aerosol 8.5 gm MDI] 2 puff IH Q8HP PRN 01/14/19 Albuterol Sulfate [Ventolin 0.083% Neb 2.5 mg/3 mL Ampul] 2.5 mg NEB RTQIDP PRN 01/14/19 Aspirin [Adult Low Dose Aspirin EC] 81 mg PO DAILY 01/14/19 Clotrimazole/Betamethasone Dip [Lotrisone Cream] 1 applic TOP BID 01/14/19 Diazepam [Valium 5 mg Tablet] 5 mg PO TIDP PRN 01/14/19 Diphenhydramine HCl [Allergy Relief] 25 mg PO QHS 01/14/19 Diphenoxylate HCl/Atrop Sulf [Lomotil 2.5 mg Tablet] 1 tab PO TIDP PRN 01/14/19 Ezetimibe [Zetia 10 mg Tablet] 10 mg PO DAILY 01/14/19 Fenofibrate 160 mg PO DAILY 01/14/19 Fluticasone/Salmeterol [Advair 250-50 Diskus 14 Dose/Diskus] 1 puff IH BID 01/14/19 Furosemide [Lasix 40 mg Tablet] 40 mg PO BIDP PRN 01/14/19 Gabapentin [Neurontin] 600 mg PO Q12 01/14/19 Hydroxyzine HCl [Atarax 50 mg Tablet] 50 mg PO TIDP PRN 01/14/19 Insulin Aspart [Novolog Flexpen] 0 units SQ .PERSLIDINGSCALE 01/14/19 Insulin Glargine,Hum.rec.anlog [Basaglar Kwikpen U-100] 50 units SQ BID 01/14/19 Linaclotide [Linzess] 72 mcg PO DAILY 01/14/19 Melatonin/Pyridoxine [Melatonin 5 mg Tablet] 1 tab PO QPM 01/14/19 Metoprolol Succinate [Toprol Xl 25 mg Tab.sr] 25 mg PO DAILY 01/14/19 Ondansetron [Ondansetron Odt] 8 mg PO DAILYP PRN 01/14/19 Oxycodone HCl/Acetaminophen [Percocet 5-325 mg Tablet] 1 tab PO Q6HP PRN 01/14/19 Rosuvastatin Calcium [Crestor] 40 mg PO QHS 01/14/19 Allergies/Adverse Reactions: amoxicillin trihydrate [From Augmentin] Allergy (Severe, Verified 01/06/19 14:12) stomach cramps, n and v, rash butalbital [From Fiorinal] Allergy (Unknown, Verified 01/06/19 14:12) rash metformin HCl [From Glucophage] Allergy (Unknown, Verified 01/06/19 14:12) rash Potassium Clavulanate * [From Augmentin] Adverse Reaction (Unknown, Verified 01/06/19 14:12) nausea, vomit, epig pain Review of Systems Constitutional: PRESENT: headache(s), weakness. ABSENT: chills, fatigue, fever(s) Cardiovascular: ABSENT: chest pain, dyspnea on exertion, edema, orthropnea, palpitations Gastrointestinal: ABSENT: abdominal pain, diarrhea, nausea, vomiting Musculoskeletal: ABSENT: joint swelling Neurological: PRESENT: frequent falls. ABSENT: confusion, dizziness, lack of coordination, memory loss, numbness, paresthesias Psychiatric: ABSENT: anxiety Hematologic/Lymphatic: PRESENT: easy bruising. ABSENT: lymphadenopathy Physical Exam Vital Signs: Temp Pulse Resp BP Pulse Ox 98.0 F 57 L 14 126/53 H 99 01/14/19 07:45 01/14/19 07:45 01/14/19 13:33 01/14/19 13:33 01/14/19 13:33 Intake & Output 01/13/19 01/14/19 01/15/19 06:59 06:59 06:59 Intake Total 1999 Balance 1999 Weight 100.6 kg General appearance: PRESENT: no acute distress, cooperative, obese Head exam: ABSENT: atraumatic - bruising to right orbit from fall this morning Eye exam: PRESENT: EOMI, PERRLA. ABSENT: scleral icterus Ear exam: PRESENT: TM's normal bilaterally Mouth exam: PRESENT: moist, neck supple Neck exam: PRESENT: full ROM. ABSENT: JVD, tenderness, thyromegaly, tracheal deviation Respiratory exam: PRESENT: clear to auscultation cheli, unlabored. ABSENT: accessory muscle use, chest wall tenderness Cardiovascular exam: PRESENT: RRR. ABSENT: gallop, rubs GI/Abdominal exam: PRESENT: normal bowel sounds, soft. ABSENT: ascites, tenderness Extremities exam: ABSENT: calf tenderness, tenderness Neurological exam: PRESENT: alert, oriented to person, oriented to place, oriented to time, oriented to situation Skin exam: PRESENT: normal color. ABSENT: skin tears Results Laboratory Results: 01/14/19 07:50 01/14/19 12:30 01/14/19 01/14/19 01/14/19 07:50 07:50 10:00 WBC 6.8 RBC 2.86 L Hgb 8.7 L Hct 26.3 L MCV 92 MCH 30.4 MCHC 33.0 RDW 14.8 H Plt Count 119 L Seg Neutrophils % 72.7 Lymphocytes % 15.2 Monocytes % 7.7 Eosinophils % 4.0 Basophils % 0.4 Absolute Neutrophils 4.9 Absolute Lymphocytes 1.0 Absolute Monocytes 0.5 Absolute Eosinophils 0.3 Absolute Basophils 0.0 Sodium 138.9 Potassium 6.3 H* Chloride 102 Carbon Dioxide 24 Anion Gap 13 BUN 63 H Creatinine 3.56 H Est GFR ( Amer) 15 L Est GFR (Non-Af Amer) 13 L Glucose 144 H Calcium 8.5 Total Bilirubin 0.6 AST 29 ALT 12 Alkaline Phosphatase 55 Total Protein 7.1 Albumin 4.1 Urine Color YELLOW Urine Appearance SLIGHTLY-CLOUDY Urine pH 5.0 Ur Specific Yoder 1.009 Urine Protein NEGATIVE Urine Glucose (UA) NEGATIVE Urine Ketones NEGATIVE Urine Blood NEGATIVE Urine Nitrite NEGATIVE Ur Leukocyte Esterase LARGE H Urine WBC (Auto) 19 Urine RBC (Auto) 6 01/14/19 12:30 WBC RBC Hgb Hct MCV MCH MCHC RDW Plt Count Seg Neutrophils % Lymphocytes % Monocytes % Eosinophils % Basophils % Absolute Neutrophils Absolute Lymphocytes Absolute Monocytes Absolute Eosinophils Absolute Basophils Sodium 140.3 Potassium 5.0 D Chloride 110 H Carbon Dioxide 23 Anion Gap 7 BUN 52 H Creatinine 3.35 H Est GFR ( Amer) 16 L Est GFR (Non-Af Amer) 14 L Glucose 89 Calcium 8.0 L Total Bilirubin AST ALT Alkaline Phosphatase Total Protein Albumin Urine Color Urine Appearance Urine pH Ur Specific Yoder Urine Protein Urine Glucose (UA) Urine Ketones Urine Blood Urine Nitrite Ur Leukocyte Esterase Urine WBC (Auto) Urine RBC (Auto) 01/14/19 01/14/19 07:50 07:50 Creatine Kinase 115 Troponin I < 0.012 Impressions: Chest X-Ray 01/14/19 07:42 IMPRESSION: NO ACUTE RADIOGRAPHIC FINDING IN THE CHEST. Head CT 01/14/19 07:42 IMPRESSION: NORMAL BRAIN CT WITHOUT CONTRAST. EVIDENCE OF ACUTE STROKE: NO. Cervical Spine CT 01/14/19 07:43 IMPRESSION: CHRONIC DEGENERATIVE CHANGES. NO ACUTE FINDINGS. Facial Bones CT 01/14/19 07:43 IMPRESSION: 1. No facial fracture evident. Assessment & Plan - Diagnosis (1) Acute on chronic renal failure Qualifiers: Acute renal failure type: unspecified Chronic kidney disease stage: stage 3 (moderate) Qualified Code(s): N17.9 - Acute kidney failure, unspecified; N18.3 - Chronic kidney disease, stage 3 (moderate) Is this a current diagnosis for this admission?: Yes Plan: Baseline creatinine approximately 2.5. Was 3.5 upon arrival to the ER. Has improved slightly with some fluids. We will continue hydration overnight. Most likely secondary to use of Bactrim which she was treated with for her UTI last week. (2) Hyperkalemia Is this a current diagnosis for this admission?: Yes Plan: Present in the ER most likely secondary to acute on chronic renal failure. Corrected with fluids. We will continue to monitor closely. (3) Right sided weakness Is this a current diagnosis for this admission?: Yes Plan: When initially seen in the ER had right upper and lower extremity weakness. When evaluated by myself only had right upper extremity weakness. Does appear to be improving her potassium is also improved as initially being seen in the ER. We will continue to monitor if right arm weakness is not improving by tomorrow we will get MRI (4) CKD (chronic kidney disease), stage III Is this a current diagnosis for this admission?: Yes Plan: Is a base creatinine of approximately 2.5 was 3.5 on arrival to the ER improved with IV fluids. We will continue IV fluids at a lower rate. Will watch for signs of fluid overload as patient has a history of congestive heart failure. Monitor renal function daily. (5) Abnormal urinalysis Is this a current diagnosis for this admission?: Yes Plan: Has large leukocytosis and her urine probably secondary to urinary tract infection from last week no further antibiotics at this time we will just monitor weight on cultures - Time Time Spent: 50 to 70 Minutes Medications reviewed and adjusted accordingly: Yes Anticipated discharge: Home
--- NOTE | 2019-01-14 19:14 | EKG REPORT ---
SEVERITY:- ABNORMAL ECG - NONSPECIFIC INTRAVENTRICULAR CONDUCTION DELAY ABNRM R PROG, CONSIDER ASMI OR LEAD PLACEMENT SINUS RHYTHM : Confirmed by: Glenys Quesada MD 14-Jan-2019 19:12:52
[2019-01-14] MEDS: HEPARIN SOD (PORCINE) 5,000 UNIT/ML 1 ML SYRINGE SUBCUT SCH (22:01)
[2019-01-15] MEDS: HEPARIN SOD (PORCINE) 5,000 UNIT/ML 1 ML SYRINGE SUBCUT SCH ×3 (05:44→22:48)
[2019-01-15] MEDS: ACETAMINOPHEN 325 MG TABLET PO PRN (05:45)
[2019-01-15 05:51] LABS: ANION GAP 10 (5-19); BLOOD UREA NITROGEN 51 mg/dL (7-20); CALCIUM 8.8 mg/dL (8.4-10.2); CARBON DIOXIDE 25 mmol/L (22-30); CHLORIDE 106 mmol/L (98-107); GLUCOSE 197 mg/dL (75-110); POTASSIUM 5.6 mmol/L (3.6-5.0); SODIUM 141.1 mmol/L (137-145)
[2019-01-15] MEDS ORDERED: SODIUM POLYSTYRENE SULFONATE 15 GM/60 ML PO ONE ×2 (10:00→12:00)
[2019-01-15] MEDS: NORMAL SALINE 1000 ML 1,000 ML IV PRN (11:26)
--- NOTE | 2019-01-15 12:47 | PDOC PROGRESS REPORT ---
Subjective Progress Note for:: 01/15/19 Subjective:: This 73-year-old female with multiple medical problems admitted for after history of fall. CT head was negative facial CT is negative for fractures. Found to be in acute on chronic renal failure. Initially she complains of right-sided weakness which was resolved. Comfortably in the bed communicating well. Right eye was swollen redness around the eyelids. She is afebrile no acute events in the last 24 hours. Reason For Visit: ROSA, HYPERKALEMIA Physical Exam Vital Signs: Temp Pulse Resp BP Pulse Ox 98.3 F 77 20 135/51 H 98 01/15/19 12:00 01/15/19 12:00 01/15/19 12:00 01/15/19 12:00 01/15/19 12:00 Intake & Output 01/14/19 01/15/19 01/16/19 06:59 06:59 06:59 Intake Total 2748 878 Balance 2748 878 Weight 100.6 kg General appearance: PRESENT: no acute distress Head exam: PRESENT: atraumatic Eye exam: PRESENT: PERRLA Mouth exam: PRESENT: moist, tongue midline Neck exam: ABSENT: carotid bruit, JVD, lymphadenopathy, thyromegaly Respiratory exam: PRESENT: clear to auscultation cheli. ABSENT: rales, rhonchi, wheezes Cardiovascular exam: PRESENT: RRR. ABSENT: diastolic murmur, rubs, systolic murmur GI/Abdominal exam: PRESENT: normal bowel sounds, soft. ABSENT: distended, guarding, mass, organolmegaly, rebound, tenderness Extremities exam: PRESENT: full ROM. ABSENT: calf tenderness, clubbing, pedal edema Neurological exam: PRESENT: alert, awake, oriented to person, oriented to place, oriented to time, oriented to situation, CN II-XII grossly intact. ABSENT: m otor sensory deficit Psychiatric exam: PRESENT: appropriate affect, normal mood. ABSENT: homicidal ideation, suicidal ideation Results Laboratory Results: 01/14/19 07:50 01/15/19 04:33 01/14/19 01/15/19 12:30 04:33 Sodium 140.3 141.1 Potassium 5.0 D 5.6 H Chloride 110 H 106 Carbon Dioxide 23 25 Anion Gap 7 10 BUN 52 H 51 H Creatinine 3.35 H 3.22 H Est GFR ( Amer) 16 L 17 L Est GFR (Non-Af Amer) 14 L 14 L Glucose 89 197 H Calcium 8.0 L 8.8 01/14/19 01/14/19 07:50 07:50 Creatine Kinase 115 Troponin I < 0.012 Impressions: Chest X-Ray 01/14/19 07:42 IMPRESSION: NO ACUTE RADIOGRAPHIC FINDING IN THE CHEST. Head CT 01/14/19 07:42 IMPRESSION: NORMAL BRAIN CT WITHOUT CONTRAST. EVIDENCE OF ACUTE STROKE: NO. Cervical Spine CT 01/14/19 07:43 IMPRESSION: CHRONIC DEGENERATIVE CHANGES. NO ACUTE FINDINGS. Facial Bones CT 01/14/19 07:43 IMPRESSION: 1. No facial fracture evident. Assessment & Plan - Diagnosis (1) Acute on chronic renal failure Qualifiers: Acute renal failure type: unspecified Chronic kidney disease stage: stage 3 (moderate) Qualified Code(s): N17.9 - Acute kidney failure, unspecified; N18.3 - Chronic kidney disease, stage 3 (moderate) Is this a current diagnosis for this admission?: Yes Plan: Baseline creatinine approximately 2.5. Was 3.5 upon arrival to the ER. Has improved slightly with some fluids. We will continue hydration overnight. Most likely secondary to use of Bactrim which she was treated with for her UTI last week. 01/15/2019-patient's admission creatinine is 3.5 it was improved to 3.22 today. Presently on IV fluids normal saline at 75 cc/h for giving gentle hydration because of the history of congestive heart failure. Plan is to recheck her labs tomorrow morning. Patient is supposed to see Dr. Steinberg as outpatient 2 days ago because of this hospital admission they had to cancel the appointment during this hospital stay they want to see Dr. Steinberg for consultation. (2) Hyperkalemia Is this a current diagnosis for this admission?: Yes Plan: 01/15/2019-serum potassium level today is 5.6. She is going to receive Veltassa 25.6 g daily and also started on Kayexalate 30 g daily. Plan is to recheck the potassium levels this evening and also tomorrow morning. EKG did not show any abnormalities except for chronic atrial fibrillation.. (3) Right sided weakness Is this a current diagnosis for this admission?: No Plan: When initially seen in the ER had right upper and lower extremity weakness. When evaluated by myself only had right upper extremity weakness. Does appear to be improving her potassium is also improved as initially being seen in the ER. We will continue to monitor if right arm weakness is not improving by tomorrow we will get MRI 01/15/2019-patient has history of CVA initially in the emergency room complains of right upper and lower extremity weakness. CT head was negative. We going to arrange for the MRI of the brain without contrast today. Patient alert and oriented communicating very well this morning. (4) CKD (chronic kidney disease), stage III Is this a current diagnosis for this admission?: No Plan: Is a base creatinine of approximately 2.5 was 3.5 on arrival to the ER improved with IV fluids. We will continue IV fluids at a lower rate. Will watch for signs of fluid overload as patient has a history of congestive heart failure. Monitor renal function daily. 01/15/2019 patient has history of chronic kidney disease they are planning to see Dr. Steinberg as an outpatient in the meantime she was admitted in the hospital be going to place a consult for Dr. Steinberg today. (5) Abnormal urinalysis Is this a current diagnosis for this admission?: Yes Plan: 01/15/2019-urinalysis shows no reappearance and leukocyte esterase is large with trace bacteria she was treated with Bactrim for UTI 1 week ago patient has a low-grade fever of 99.2 today asymptomatic plan is to continue to closely monitor her we are going to hold off the antibiotics for now. (6) Atrial fibrillation Qualifiers: Atrial fibrillation type: paroxysmal Qualified Code(s): I48.0 - Paroxysmal atrial fibrillation Is this a current diagnosis for this admission?: No Plan: 01/15/2019-family is giving the history that patient has irregular heartbeat they do not know what is atrial fibrillation is the also told me patient is not on any anticoagulation except for aspirin at home. Patient is also on heparin 5000 units every 8 hours for DVT prophylaxis. - Time Time Spent with patient: 15-24 minutes Medications reviewed and adjusted accordingly: Yes Anticipated discharge: Home with Homehealth
[2019-01-15] MEDS: OXYCODONE-ACETAMINOPHEN 5-325 MG TABLET PO PRN (14:39)
[2019-01-15] MEDS ORDERED: ALBUTEROL SULFATE HFA (90 MCG/PUFF) 200 PUFF/8.5 GM MDI IH PRN (17:11)
[2019-01-15] MEDS ORDERED: DIAZEPAM 5 MG TABLET PO PRN (17:11)
[2019-01-15] MEDS ORDERED: ALBUTEROL SULFATE 0.083% NEB 2.5 MG/3 ML AMPUL NEB PRN (17:11)
[2019-01-15] MEDS ORDERED: DIPHENOXYLATE HCL/ATROP SULF 2.5-0.025 MG TABLET PO PRN (17:11)
[2019-01-15] MEDS ORDERED: OXYCODONE-ACETAMINOPHEN 5-325 MG TABLET PO PRN (17:11)
[2019-01-15] MEDS ORDERED: DEXTROSE 40% GEL 15 GM TUBE PO PRN ×2 (17:14)
[2019-01-15] MEDS ORDERED: DEXTROSE 50%-WATER 25 GM/50 ML DISP.SYRIN IV PRN ×2 (17:14)
[2019-01-15] MEDS ORDERED: GLUCAGON,HUMAN RECOMB 1 MG INJ IM PRN (17:14)
[2019-01-15] MEDS: PATIROMER 8.4 GM SUSP PACKET PO SCH (17:51)
[2019-01-15] MEDS ORDERED: (PENDING PHARMACY ID) (Melatonin/Pyridoxine [Melatonin 5 Mg Tablet] 1 TAB) PO SCH (18:00)
[2019-01-15] MEDS ORDERED: INSULIN GLARGINE,HUM.REC.ANLOG 300 UNIT/3 ML INSULN.PEN SUBCUT SCH (18:00)
[2019-01-15] MEDS ORDERED: (PENDING PHARMACY ID) (Fluticasone/Salmeterol 1 PUFF) IH SCH (18:00)
[2019-01-15] MEDS ORDERED: HYDROXYZINE PAMOATE 50 MG CAPSULE PO PRN (18:17)
[2019-01-15] MEDS: CLOTRIMAZOLE/BETAMETHASONE DIP CREAM 15 GM TOP SCH (19:36)
[2019-01-15] MEDS ORDERED: (PENDING PHARMACY ID) (Rosuvastatin Calcium [Crestor] 40 MG) PO SCH (22:00)
[2019-01-15] MEDS ORDERED: [UNRECOGNIZED DRUG - REMARK] PO SCH (22:00)
[2019-01-15] MEDS: FLUTICASONE/VILANTEROL 200-25 MCG/DOSE IH SCH (22:33)
[2019-01-15] MEDS: GABAPENTIN 300 MG CAPSULE PO SCH (22:34)
[2019-01-15] MEDS: ATORVASTATIN CALCIUM 80 MG TABLET PO SCH (22:35)
[2019-01-15] MEDS: MELATONIN 5 MG TABLET PO SCH (22:35)
[2019-01-15] MEDS: INSULIN GLARGINE,HUM.REC.ANLOG 1,000 UNIT/10 ML UNIT SUBCUT SCH (22:36)
[2019-01-15] MEDS: INSULIN REG, HUMAN 100 UNIT/ML 3 ML VIAL (PYX) SUBCUT SCH (22:37)
[2019-01-15] MEDS: FENOFIBRATE NANOCRYSTALLIZED 145 MG TABLET PO SCH (22:47)
[2019-01-15] MEDS: DIPHENHYDRAMINE HCL 25 MG CAPSULE PO SCH (22:49)
--- NOTE | 2019-01-15 23:32 | RADIOLOGY REPORT (SQ) ---
EXAM DESCRIPTION: MR BRAIN WITHOUT IV CONTRAST COMPLETED DATE/TME: 01/15/2019 00:00 CLINICAL HISTORY: 73 years, Female, fall COMPARISON: CT brain 01/14/2019 TECHNIQUE: [id number] Images stored on PACS. LIMITATIONS: None. FINDINGS: Sagittal midline anatomic structures show an unremarkable appearance to the pituitary and suprasellar regions. The globes are intact. The paranasal sinuses show minor polyp formation of the maxillary sinuses. Partial opacification right mastoid air cells. Normal flow void in visualized intracranial vessels. The visualized cranial nerve complex these are unremarkable. There is no intra or extra-axial hemorrhage. Diffusion-weighted images are normal, without evidence for acute infarct. No evidence for mass or midline shift. Diffuse age-appropriate atrophy. Scattered foci of increased FLAIR/T2 white matter signal in the periventricular and subcortical regions consistent with sequelae of small vessel ischemic change IMPRESSION: Age-appropriate atrophy with minor small vessel ischemic change. Polyps of the maxillary sinuses with partial opacification right mastoid air cells copyright 2010 [facility]- All Rights Reserved
[2019-01-16] MEDS ORDERED: DIAZEPAM INJ 10 MG/2 ML DISP.SYRIN IV ONE (05:00)
[2019-01-16] MEDS: HEPARIN SOD (PORCINE) 5,000 UNIT/ML 1 ML SYRINGE SUBCUT SCH ×3 (06:22→21:05)
[2019-01-16] MEDS: INSULIN REG, HUMAN 100 UNIT/ML 3 ML VIAL (PYX) SUBCUT SCH ×4 (08:11→21:18)
[2019-01-16] MEDS: OXYCODONE-ACETAMINOPHEN 5-325 MG TABLET PO PRN ×2 (08:53→20:15)
[2019-01-16] MEDS: METOPROLOL SUCCINATE 25 MG TAB.SR.24H PO SCH (09:18)
[2019-01-16] MEDS: INSULIN GLARGINE,HUM.REC.ANLOG 1,000 UNIT/10 ML UNIT SUBCUT SCH ×2 (09:18→21:11)
[2019-01-16] MEDS: GABAPENTIN 300 MG CAPSULE PO SCH ×2 (09:18→21:11)
[2019-01-16] MEDS: ASPIRIN 325 MG TABLET, ENT COATED PO SCH (09:19)
[2019-01-16] MEDS: FLUTICASONE/VILANTEROL 200-25 MCG/DOSE IH SCH (09:30)
[2019-01-16] MEDS: EZETIMIBE 10 MG TABLET PO SCH (09:31)
[2019-01-16] MEDS: CLOTRIMAZOLE/BETAMETHASONE DIP CREAM 15 GM TOP SCH ×2 (09:31→18:37)
[2019-01-16] MEDS: FENOFIBRATE NANOCRYSTALLIZED 145 MG TABLET PO SCH (09:31)
[2019-01-16] MEDS ORDERED: (PENDING PHARMACY ID) (Linaclotide [Linzess] 72 MCG) PO SCH (10:00)
[2019-01-16] MEDS ORDERED: ASPIRIN 81 MG TABLET, ENT COATED PO SCH (10:00)
[2019-01-16] MEDS ORDERED: (PENDING PHARMACY ID) (Fenofibrate [Fenofibrate] 160 MG) PO SCH (10:00)
--- NOTE | 2019-01-16 10:04 | PDOC PROGRESS REPORT ---
Subjective Progress Note for:: 01/16/19 Subjective:: This 73-year-old female with multiple medical problems admitted for after history of fall. CT head was negative facial CT is negative for fractures. Found to be in acute on chronic renal failure. Initially she complains of right-sided weakness which was resolved. Comfortably in the bed communicating well. Right eye was swollen redness around the eyelids. She is afebrile no acute events in the last 24 hours. [id number]-old female with multiple medical problems admitted for a fall. CT head was negative facial CT was negative for fractures. Complaining of abnormal vision in the right eye. We do not have any ophthalmology available. Patient family has sales advisory manager to go to make an appointment next week for follow-up as an outpatient. Today's labs are pending. MRI of the brain done this morning negative for acute fractures. Physical therapy is able to walk her for 60 feet. Patient denies any nausea vomiting diarrhea abdominal pain or co nstipation. Reason For Visit: ROSA, HYPERKALEMIA Physical Exam Vital Signs: Temp Pulse Resp BP Pulse Ox 97.9 F 87 16 138/43 H 94 01/16/19 04:37 01/16/19 04:37 01/16/19 04:37 01/16/19 04:37 01/16/19 04:37 Intake & Output 01/15/19 01/16/19 01/17/19 06:59 06:59 06:59 Intake Total 2748 2497 Output Total 900 Balance 2748 1597 Weight 100.6 kg 92.3 kg Results Laboratory Results: 01/14/19 07:50 01/15/19 04:33 01/14/19 01/14/19 07:50 07:50 Creatine Kinase 115 Troponin I < 0.012 Impressions: Chest X-Ray 01/14/19 07:42 IMPRESSION: NO ACUTE RADIOGRAPHIC FINDING IN THE CHEST. Head CT 01/14/19 07:42 IMPRESSION: NORMAL BRAIN CT WITHOUT CONTRAST. EVIDENCE OF ACUTE STROKE: NO. Cervical Spine CT 01/14/19 07:43 IMPRESSION: CHRONIC DEGENERATIVE CHANGES. NO ACUTE FINDINGS. Facial Bones CT 01/14/19 07:43 IMPRESSION: 1. No facial fracture evident. Head MRI 01/15/19 00:00 IMPRESSION: Age-appropriate atrophy with minor small vessel ischemic change. Polyps of the maxillary sinuses with partial opacification right mastoid air cells copyright 2010 [employer]- All Rights Reserved Assessment & Plan - Diagnosis (1) Acute on chronic renal failure Qualifiers: Acute renal failure type: unspecified Chronic kidney disease stage: stage 3 (moderate) Qualified Code(s): N17.9 - Acute kidney failure, unspecified; N18.3 - Chronic kidney disease, stage 3 (moderate) Is this a current diagnosis for this admission?: Yes Plan: Baseline creatinine approximately 2.5. Was 3.5 upon arrival to the ER. Has improved slightly with some fluids. We will continue hydration overnight. Most likely secondary to use of Bactrim which she was treated with for her UTI last week. 01/15/2019-patient's admission creatinine is 3.5 it was improved to 3.22 today. P resently on IV fluids normal saline at 75 cc/h for giving gentle hydration because of the history of congestive heart failure. Plan is to recheck her labs tomorrow morning. Patient is supposed to see Dr. Steinberg as outpatient 2 days ago because of this hospital admission they had to cancel the appointment during this hospital stay they want to see Dr. Steinberg for consultation. 01/16/2019-patient's admission creatinine is 3.5 improved to 3.22 yesterday she is getting IV fluids 75 cc/h. Be watching for the fluid overload because of history of congestive heart failure. Consult was placed for Dr. Steinberg. Again waiting for the today's labs to see any improvement in kidney function. (2) Hyperkalemia Is this a current diagnosis for this admission?: Yes Plan: 01/15/2019-serum potassium level today is 5.6. She is going to receive Veltassa 25.6 g daily and also started on Kayexalate 30 g daily. Plan is to recheck the potassium levels this evening and also tomorrow morning. EKG did not show any abnormalities except for chronic atrial fibrillation.. 01/16/2019-patient potassium is 5.6 yesterday, today's labs are pending. Patient is receiving Veltassa 25.6 g daily. She is also received Kayexalate. Again waiting for the labs today. Hyperkalemia most likely secondary to chronic kidney disease. (3) Right sided weakness Is this a current diagnosis for this admission?: No Plan: When initially seen in the ER had right upper and lower extremity weakness. When evaluated by myself only had right upper extremity weakness. Does appear to be improving her potassium is also improved as initially being seen in the ER. We will continue to monitor if right arm weakness is not improving by tomorrow we will get MRI 01/15/2019-patient has history of CVA initially in the emergency room complains of right upper and lower extremity weakness. CT head was negative. We going to arrange for the MRI of the brain without contrast today. Patient alert and or iented communicating very well this morning. 01/16/2019-patient was admitted with right-sided weakness weakness was resolved. CT head was negative MRI of the brain was negative for acute pathology. Facial CT is negative for fractures. Physical therapy consult was requested. Right- sided weakness may be secondary to transient ischemic attack. (4) CKD (chronic kidney disease), stage III Is this a current diagnosis for this admission?: No Plan: Is a base creatinine of approximately 2.5 was 3.5 on arrival to the ER improved with IV fluids. We will continue IV fluids at a lower rate. Will watch for signs of fluid overload as patient has a history of congestive heart failure. Monitor renal function daily. 01/15/2019 patient has history of chronic kidney disease they are planning to see Dr. Steinberg as an outpatient in the meantime she was admitted in the hospital be going to place a consult for Dr. Steinberg today. 01/16/2019-patient has history of chronic kidney disease creatinine was improved to 3.22. Consult was placed for Dr. Steinberg. Hopefully he is able to evaluate the patient during the hospital stay. (5) Abnormal urinalysis Is this a current diagnosis for this admission?: Yes Plan: 01/15/2019-urinalysis shows no reappearance and leukocyte esterase is large with trace bacteria she was treated with Bactrim for UTI 1 week ago patient has a low-grade fever of 99.2 today asymptomatic plan is to continue to closely monitor her we are going to hold off the antibiotics for now. 01/16/2019-on admission urinalysis shows large leukocyte esterase positive trace bacteria recently treated with Bactrim. Temperature is 98.8 afebrile antibiotics are not started during this hospital stay. (6) Atrial fibrillation Qualifiers: Atrial fibrillation type: paroxysmal Qualified Code(s): I48.0 - Paroxysmal atrial fibrillation Is this a current diagnosis for this admission?: No Plan: 01/15/2019-family is giving the history that patient has irregular heartbeat they do not know what is atrial fibrillation is the also told me patient is not on any anticoagulation except for aspirin at home. Patient is also on heparin 5000 units every 8 hours for DVT prophylaxis. 01/16/2019-h/o of chronic paroxysmal atrial fibrillation not on anticoagulation at home. Here she is on heparin 5000 units every 8 hours. Patient is on aspirin 325 mg p.o. daily and DVT prophylaxis. Plan is to continue the present management. - Time Time Spent with patient: 15-24 minutes Medications reviewed and adjusted accordingly: Yes Anticipated discharge: Home with Homehealth
[2019-01-16 12:20] LABS: ABSOLUTE EOSINOPHILS # (AUTO) 0.2 10^3/uL (0.0-0.6); ABSOLUTE LYMPHOCYTES (AUTO) 0.9 10^3/uL (0.5-4.7); ABSOLUTE MONOCYTES (AUTO) 0.3 10^3/uL (0.1-1.4); ABSOLUTE NEUT (AUTO) 2.3 10^3/uL (1.7-8.2); BASOPHILS % (AUTO) 0.5 % (0-2); EOSINOPHILS % (AUTO) 4.3 % (0-6); HEMATOCRIT 23.2 % (36.0-47.0); LYMPHOCYTES % (AUTO) 25.7 % (13-45); MEAN CORPUSCULAR HGB CONC 33.7 g/dL (32.0-36.0); MEAN CORPUSCULAR VOLUME 92 fl (80-97); MONOCYTES % (AUTO) 7.2 % (3-13); RED BLOOD COUNT 2.52 10^6/uL (3.72-5.28); RED CELL DISTRIBUTION WIDTH 14.8 % (11.5-14.0); SEGMENTED NEUTROPHILS % (AUTO) 62.3 % (42-78); TOTAL CELLS COUNTED % (AUTO) 100 %; WHITE BLOOD COUNT 3.7 10^3/uL (4.0-10.5)
[2019-01-16 12:25] LABS: HEMOGLOBIN 7.8 g/dL (12.0-15.5)
[2019-01-16 12:26] LABS: PLATELET COUNT 89 10^3/uL (150-450)
[2019-01-16] MEDS ORDERED: NORMAL SALINE 250 ML IV PRN ×2 (12:34)
[2019-01-16 12:45] LABS: ALANINE AMINOTRANSFERASE 17 U/L (9-52); ALBUMIN 3.2 g/dL (3.5-5.0); ALKALINE PHOSPHATASE 59 U/L (38-126); ANION GAP 7 (5-19); ASPARTATE AMINO TRANSFERASE 22 U/L (14-36); BILIRUBIN,DIRECT 0.2 mg/dL (0.0-0.4); BILIRUBIN,TOTAL 0.3 mg/dL (0.2-1.3); BLOOD UREA NITROGEN 38 mg/dL (7-20); CALCIUM 8.8 mg/dL (8.4-10.2); CARBON DIOXIDE 25 mmol/L (22-30); CHLORIDE 108 mmol/L (98-107); GLUCOSE 175 mg/dL (75-110); POTASSIUM 4.6 mmol/L (3.6-5.0); SODIUM 139.8 mmol/L (137-145)
[2019-01-16] MEDS: PATIROMER 8.4 GM SUSP PACKET PO SCH (16:07)
[2019-01-16] MEDS: DIPHENHYDRAMINE HCL 25 MG CAPSULE PO SCH (21:13)
[2019-01-16] MEDS: MELATONIN 5 MG TABLET PO SCH (21:13)
[2019-01-16] MEDS: ATORVASTATIN CALCIUM 80 MG TABLET PO SCH (21:13)
[2019-01-16 23:15] LABS: ABSOLUTE EOSINOPHILS # (AUTO) 0.2 10^3/uL (0.0-0.6); ABSOLUTE LYMPHOCYTES (AUTO) 0.9 10^3/uL (0.5-4.7); ABSOLUTE MONOCYTES (AUTO) 0.3 10^3/uL (0.1-1.4); ABSOLUTE NEUT (AUTO) 2.4 10^3/uL (1.7-8.2); BASOPHILS % (AUTO) 0.4 % (0-2); EOSINOPHILS % (AUTO) 5.1 % (0-6); HEMATOCRIT 25.4 % (36.0-47.0); HEMOGLOBIN 8.5 g/dL (12.0-15.5); LYMPHOCYTES % (AUTO) 23.5 % (13-45); MEAN CORPUSCULAR HEMOGLOBIN 30.4 pg (27.0-33.4); MEAN CORPUSCULAR HGB CONC 33.6 g/dL (32.0-36.0); MEAN CORPUSCULAR VOLUME 90 fl (80-97); MONOCYTES % (AUTO) 6.9 % (3-13); RED CELL DISTRIBUTION WIDTH 14.7 % (11.5-14.0); SEGMENTED NEUTROPHILS % (AUTO) 64.1 % (42-78); TOTAL CELLS COUNTED % (AUTO) 100 %; WHITE BLOOD COUNT 3.8 10^3/uL (4.0-10.5)
[2019-01-16 23:30] LABS: PLATELET COUNT 90 10^3/uL (150-450)
[2019-01-17] MEDS: HEPARIN SOD (PORCINE) 5,000 UNIT/ML 1 ML SYRINGE SUBCUT SCH ×3 (05:22→22:06)
[2019-01-17] MEDS: NORMAL SALINE 1000 ML 1,000 ML IV PRN (05:44)
[2019-01-17] MEDS: INSULIN REG, HUMAN 100 UNIT/ML 3 ML VIAL (PYX) SUBCUT SCH ×4 (08:33→22:08)
[2019-01-17] MEDS: INSULIN GLARGINE,HUM.REC.ANLOG 1,000 UNIT/10 ML UNIT SUBCUT SCH ×2 (09:35→22:07)
[2019-01-17] MEDS: METOPROLOL SUCCINATE 25 MG TAB.SR.24H PO SCH (09:35)
[2019-01-17] MEDS: ASPIRIN 325 MG TABLET, ENT COATED PO SCH (09:35)
[2019-01-17] MEDS: GABAPENTIN 300 MG CAPSULE PO SCH ×2 (09:35→22:08)
[2019-01-17] MEDS: FLUTICASONE/VILANTEROL 200-25 MCG/DOSE IH SCH (09:36)
[2019-01-17] MEDS: FENOFIBRATE NANOCRYSTALLIZED 145 MG TABLET PO SCH (09:37)
[2019-01-17] MEDS: EZETIMIBE 10 MG TABLET PO SCH (09:37)
[2019-01-17] MEDS: CLOTRIMAZOLE/BETAMETHASONE DIP CREAM 15 GM TOP SCH ×2 (09:39→17:43)
--- NOTE | 2019-01-17 10:00 | PDOC PROGRESS REPORT ---
Subjective Progress Note for:: 01/17/19 Subjective:: This 73-year-old female with multiple medical problems admitted for after history of fall. CT head was negative facial CT is negative for fractures. Found to be in acute on chronic renal failure. Initially she complains of right-sided weakness which was resolved. Comfortably in the bed communicating well. Right eye was swollen redness around the eyelids. She is afebrile no acute events in the last 24 hours. 01/[id number]-lfro-old female with multiple medical problems admitted for a fall. CT head was negative facial CT was negative for fractures. Complaining of abnormal vision in the right eye. We do not have any ophthalmology available. Patient family has roustabout pusher to go to make an appointment next week for follow-up as an outpatient. Today's labs are pending. MRI of the brain done this morning negative for acute fractures. Physical therapy is able to walk her for 60 feet. Patient denies any nausea vomiting diarrhea abdominal pain or constipation. [id number]-old female admitted with falls physical therapy is working with the patient CT head was negative facial CT was negative. MRI was negative for acute changes. Her hemoglobin dropped to 7.5 yesterday 1 unit of blood transfusion was given yesterday patient is comfortably in the bed no complaints. is bedside. Patient says she is not feeling well today she is r equesting to stay 1 more day. Reason For Visit: ROSA, HYPERKALEMIA Physical Exam Vital Signs: Temp Pulse Resp BP Pulse Ox 97.4 F 73 22 H 152/56 H 96 01/17/19 08:04 01/17/19 08:04 01/17/19 08:04 01/17/19 08:04 01/17/19 08:04 Intake & Output 01/16/19 01/17/19 01/18/19 06:59 06:59 07:59 Intake Total 3497 1898 Output Total 900 1100 Balance 2597 798 Weight 92.3 kg 92.4 kg General appearance: PRESENT: no acute distress Head exam: PRESENT: atraumatic Eye exam: PRESENT: PERRLA Mouth exam: PRESENT: dry mucosa Neck exam: ABSENT: carotid bruit, JVD, lymphadenopathy, thyromegaly Respiratory exam: PRESENT: clear to auscultation cheli. ABSENT: rales, rhonchi, wheezes Cardiovascular exam: PRESENT: systolic murmur, tachycardia GI/Abdominal exam: PRESENT: normal bowel sounds, soft. ABSENT: distended, guarding, mass, organolmegaly, rebound, tenderness Extremities exam: PRESENT: full ROM. ABSENT: calf tenderness, clubbing, pedal edema Neurological exam: PRESENT: alert, awake, oriented to person, oriented to place, oriented to time, oriented to situation, CN II-XII grossly intact. ABSENT: motor sensory deficit Psychiatric exam: PRESENT: appropriate affect, normal mood. ABSENT: homicidal ideation, suicidal ideation Results Laboratory Results: 01/16/19 23:04 01/16/19 11:51 01/16/19 01/16/19 01/16/19 11:51 11:51 13:11 WBC 3.7 L RBC 2.52 L Hgb 7.8 L Hct 23.2 L MCV 92 MCH 31.0 MCHC 33.7 RDW 14.8 H Plt Count 89 L Seg Neutrophils % 62.3 Lymphocytes % 25.7 Monocytes % 7.2 Eosinophils % 4.3 Basophils % 0.5 Absolute Neutrophils 2.3 Absolute Lymphocytes 0.9 Absolute Monocytes 0.3 Absolute Eosinophils 0.2 Absolute Basophils 0.0 Sodium 139.8 Potassium 4.6 Chloride 108 H Carbon Dioxide 25 Anion Gap 7 BUN 38 H Creatinine 2.38 H Est GFR ( Amer) 24 L Est GFR (Non-Af Amer) 20 L Glucose 175 H Calcium 8.8 Magnesium 2.0 Total Bilirubin 0.3 AST 22 ALT 17 Alkaline Phosphatase 59 Total Protein 6.0 L Albumin 3.2 L Blood Type O POSITIVE Antibody Screen POSITIVE 01/16/19 23:04 WBC 3.8 L RBC 2.80 L Hgb 8.5 L Hct 25.4 L MCV 90 MCH 30.4 MCHC 33.6 RDW 14.7 H Plt Count 90 L Seg Neutrophils % 64.1 Lymphocytes % 23.5 Monocytes % 6.9 Eosinophils % 5.1 Basophils % 0.4 Absolute Neutrophils 2.4 Absolute Lymphocytes 0.9 Absolute Monocytes 0.3 Absolute Eosinophils 0.2 Absolute Basophils 0.0 Sodium Potassium Chloride Carbon Dioxide Anion Gap BUN Creatinine Est GFR ( Amer) Est GFR (Non-Af Amer) Glucose Calcium Magnesium Total Bilirubin AST ALT Alkaline Phosphatase Total Protein Albumin Blood Type Antibody Screen 01/14/19 01/14/19 07:50 07:50 Creatine Kinase 115 Troponin I < 0.012 Impressions: Chest X-Ray 01/14/19 07:42 IMPRESSION: NO ACUTE RADIOGRAPHIC FINDING IN THE CHEST. Head CT 01/14/19 07:42 IMPRESSION: NORMAL BRAIN CT WITHOUT CONTRAST. EVIDENCE OF ACUTE STROKE: NO. Cervical Spine CT 01/14/19 07:43 IMPRESSION: CHRONIC DEGENERATIVE CHANGES. NO ACUTE FINDINGS. Facial Bones CT 01/14/19 07:43 IMPRESSION: 1. No facial fracture evident. Head MRI 01/15/19 00:00 IMPRESSION: Age-appropriate atrophy with minor small vessel ischemic change. Polyps of the maxillary sinuses with partial opacification right mastoid air cells copyright 2010 [employer]- All Rights Reserved Assessment & Plan - Diagnosis (1) Acute on chronic renal failure Qualifiers: Acute renal failure type: unspecified Chronic kidney disease stage: stage 3 (moderate) Qualified Code(s): N17.9 - Acute kidney failure, unspecified; N18.3 - Chronic kidney disease, stage 3 (moderate) Is this a current diagnosis for this admission?: Yes Plan: Baseline creatinine approximately 2.5. Was 3.5 upon arrival to the ER. Has improved slightly with some fluids. We will continue hydration overnight. Most likely secondary to use of Bactrim which she was treated with for her UTI last week. 01/15/2019-patient's admission creatinine is 3.5 it was improved to 3.22 today. Presently on IV fluids normal saline at 75 cc/h for giving gentle hydration because of the history of congestive heart failure. Plan is to recheck her labs tomorrow morning. Patient is supposed to see Dr. Steinberg as outpatient 2 days ago because of this hospital admission they had to cancel the appointment during this hospital stay they want to see Dr. Steinberg for consultation. 01/16/2019-patient's admission creatinine is 3.5 improved to 3.22 yesterday she is getting IV fluids 75 cc/h. Be watching for the fluid overload because of history of congestive heart failure. Consult was placed for Dr. Steinberg. Again waiting for the today's labs to see any improvement in kidney function. 12/20/2018-patient creatinine came down to 2.38 today on admission it was 3.5 acute on chronic renal failure is resolving. It is most likely secondary to prerenal causes. (2) Hyperkalemia Is this a current diagnosis for this admission?: Yes Plan: 01/15/2019-serum potassium level today is 5.6. She is going to receive Veltassa 25.6 g daily and also started on Kayexalate 30 g daily. Plan is to recheck the potassium levels this evening and also tomorrow morning. EKG did not show any abnormalities except for chronic atrial fibrillation.. 01/16/2019-patient potassium is 5.6 yesterday, today's labs are pending. Patient is receiving Veltassa 25.6 g daily. She is also received Kayexalate. Again waiting for the labs today. Hyperkalemia most likely secondary to chronic kidney disease. 12/20/2018-potassium level came back 4.6. Yesterday's potassium is 5.6 she is on Veltassa 25.6 mg p.o. daily patient also received Kayexalate. Hyperkalemia most likely secondary to chronic kidney disease is resolved. (3) Right sided weakness Is this a current diagnosis for this admission?: No Plan: When initially seen in the ER had right upper and lower extremity weakness. When evaluated by myself only had right upper extremity weakness. Does appear to be improving her potassium is also improved as initially being seen in the ER. We will continue to monitor if right arm weakness is not improving by tomorrow we will get MRI 01/15/2019-patient has history of CVA initially in the emergency room complains of right upper and lower extremity weakness. CT head was negative. We going to arrange for the MRI of the brain without contrast today. Patient alert and oriented communicating very well this morning. 01/16/2019-patient was admitted with right-sided weakness weakness was resolved. CT head was negative MRI of the brain was negative for acute pathology. Facial CT is negative for fractures. Physical therapy consult was requested. Right- sided weakness may be secondary to transient ischemic attack. 01/17/2019 patient came in with complaints of right-sided weakness which was resolved. No evidence of new stroke. (4) CKD (chronic kidney disease), stage III Is this a current diagnosis for this admission?: No Plan: Is a base creatinine of approximately 2.5 was 3.5 on arrival to the ER improved with IV fluids. We will continue IV fluids at a lower rate. Will watch for signs of fluid overload as patient has a history of congestive heart failure. Monitor renal function daily. 01/15/2019 patient has history of chronic kidney disease they are planning to see Dr. Steinberg as an outpatient in the meantime she was admitted in the hospital be going to place a consult for Dr. Steinberg today. 01/16/2019-patient has history of chronic kidney disease creatinine was improved to 3.22. Consult was placed for Dr. Steinberg. Hopefully he is able to evaluate the patient during the hospital stay. 01/17/2019-patient has a chronic kidney disease latest creatinine is 2.38 she looks like she has stage III kidney disease I strongly recommend that the family to get another appointment with Dr. Steinberg. (5) Abnormal urinalysis Is this a current diagnosis for this admission?: Yes Plan: 01/15/2019-urinalysis shows no reappearance and leukocyte esterase is large with trace bacteria she was treated with Bactrim for UTI 1 week ago patient has a low-grade fever of 99.2 today asymptomatic plan is to continue to closely monitor her we are going to hold off the antibiotics for now. 01/16/2019-on admission urinalysis shows large leukocyte esterase positive trace bacteria recently treated with Bactrim. Temperature is 98.8 afebrile antibiotics are not started during this hospital stay. 01/17/2019-patient was treated for UTI with Bactrim recently she is afebrile during the hospital stay temperature is 97.4 no need for antibiotic therapy at this moment. (6) Atrial fibrillation Qualifiers: Atrial fibrillation type: paroxysmal Qualified Code(s): I48.0 - Paroxysmal atrial fibrillation Is this a current diagnosis for this admission?: No Plan: 01/15/2019-family is giving the history that patient has irregular heartbeat they do not know what is atrial fibrillation is the also told me patient is not on any anticoagulation except for aspirin at home. Patient is also on heparin 5000 units every 8 hours for DVT prophylaxis. 01/16/2019-h/o of chronic paroxysmal atrial fibrillation not on anticoagulation at home. Here she is on heparin 5000 units every 8 hours. Patient is on aspirin 325 mg p.o. daily and DVT prophylaxis. Plan is to continue the present management. 01/17/2019-patient has history of chronic paroxysmal atrial fibrillation not on anticoagulation she is on heparin 5000 units subcu every 8 hours and started her on aspirin 325 mg p.o. daily on examination today patient is in sinus rhythm heart murmur is present. Heart rate in the 70s's. (7) Anemia of chronic disease Is this a current diagnosis for this admission?: No Plan: 01/17/2019 patient has history of anemia of chronic disease most likely secondary to chronic kidney disease hemoglobin dropped to 1.5 yesterday 1 unit of PRBC given hemoglobin today 8.5. Patient may need Procrit injections in the future advised the family follow-up with the Dr. Steinberg. - Time Time Spent with patient: 15-24 minutes Medications reviewed and adjusted accordingly: Yes Anticipated discharge: Home
[2019-01-17] MEDS: ACETAMINOPHEN 325 MG TABLET PO PRN (16:13)
[2019-01-17] MEDS: PATIROMER 8.4 GM SUSP PACKET PO SCH (17:43)
[2019-01-17] MEDS: ONDANSETRON 4 MG TAB.RAPDIS PO SCH (18:49)
[2019-01-17] MEDS: ATORVASTATIN CALCIUM 80 MG TABLET PO SCH (22:08)
[2019-01-17] MEDS: MELATONIN 5 MG TABLET PO SCH (22:08)
[2019-01-17] MEDS: DIPHENHYDRAMINE HCL 25 MG CAPSULE PO SCH (22:08)
[2019-01-17] MEDS: OXYCODONE-ACETAMINOPHEN 5-325 MG TABLET PO PRN (22:13)
[2019-01-18] MEDS: HEPARIN SOD (PORCINE) 5,000 UNIT/ML 1 ML SYRINGE SUBCUT SCH ×2 (05:30→13:14)
[2019-01-18] MEDS: INSULIN REG, HUMAN 100 UNIT/ML 3 ML VIAL (PYX) SUBCUT SCH ×2 (08:26→13:12)
[2019-01-18] MEDS: INSULIN GLARGINE,HUM.REC.ANLOG 1,000 UNIT/10 ML UNIT SUBCUT SCH (09:10)
[2019-01-18] MEDS: FLUTICASONE/VILANTEROL 200-25 MCG/DOSE IH SCH (09:19)
[2019-01-18] MEDS: ONDANSETRON 4 MG TAB.RAPDIS PO SCH ×2 (09:19→13:20)
[2019-01-18] MEDS: GABAPENTIN 300 MG CAPSULE PO SCH (09:19)
[2019-01-18] MEDS: ASPIRIN 325 MG TABLET, ENT COATED PO SCH (09:19)
[2019-01-18] MEDS: FENOFIBRATE NANOCRYSTALLIZED 145 MG TABLET PO SCH (09:19)
[2019-01-18] MEDS: EZETIMIBE 10 MG TABLET PO SCH (09:20)
[2019-01-18] MEDS: CLOTRIMAZOLE/BETAMETHASONE DIP CREAM 15 GM TOP SCH (09:20)
[2019-01-18] MEDS: METOPROLOL SUCCINATE 25 MG TAB.SR.24H PO SCH (09:20)
[2019-01-18] MEDS: OXYCODONE-ACETAMINOPHEN 5-325 MG TABLET PO PRN (09:22)
[2019-01-18 10:32] LABS: ABSOLUTE EOSINOPHILS # (AUTO) 0.3 10^3/uL (0.0-0.6); ABSOLUTE LYMPHOCYTES (AUTO) 1.3 10^3/uL (0.5-4.7); ABSOLUTE MONOCYTES (AUTO) 0.4 10^3/uL (0.1-1.4); ABSOLUTE NEUT (AUTO) 3.3 10^3/uL (1.7-8.2); BASOPHILS % (AUTO) 0.6 % (0-2); EOSINOPHILS % (AUTO) 4.8 % (0-6); HEMATOCRIT 28.3 % (36.0-47.0); HEMOGLOBIN 9.4 g/dL (12.0-15.5); LYMPHOCYTES % (AUTO) 25.3 % (13-45); MEAN CORPUSCULAR HEMOGLOBIN 30.5 pg (27.0-33.4); MEAN CORPUSCULAR HGB CONC 33.3 g/dL (32.0-36.0); MEAN CORPUSCULAR VOLUME 91 fl (80-97); MONOCYTES % (AUTO) 7.7 % (3-13); PLATELET COUNT 105 10^3/uL (150-450); RED CELL DISTRIBUTION WIDTH 14.6 % (11.5-14.0); SEGMENTED NEUTROPHILS % (AUTO) 61.6 % (42-78); TOTAL CELLS COUNTED % (AUTO) 100 %; WHITE BLOOD COUNT 5.3 10^3/uL (4.0-10.5)
[2019-01-18 10:48] LABS: ALANINE AMINOTRANSFERASE 23 U/L (9-52); ALBUMIN 3.7 g/dL (3.5-5.0); ALKALINE PHOSPHATASE 70 U/L (38-126); ANION GAP 10 (5-19); ASPARTATE AMINO TRANSFERASE 37 U/L (14-36); BILIRUBIN,DIRECT 0.2 mg/dL (0.0-0.4); BILIRUBIN,TOTAL 0.4 mg/dL (0.2-1.3); BLOOD UREA NITROGEN 36 mg/dL (7-20); CALCIUM 8.7 mg/dL (8.4-10.2); CARBON DIOXIDE 23 mmol/L (22-30); CHLORIDE 104 mmol/L (98-107); GLUCOSE 231 mg/dL (75-110); POTASSIUM 4.7 mmol/L (3.6-5.0); SODIUM 136.9 mmol/L (137-145); TOTAL PROTEIN 6.8 g/dL (6.3-8.2)
--- NOTE | 2019-01-18 13:03 | PDOC DISCHARGE SUMMARY ---
General - Admit/Disc Date/PCP Admission Date/Primary Care Provider: 01/15/19 09:00 DANI PANDA, DO Discharge Date: 01/18/19 - Discharge Diagnosis (1) Acute on chronic renal failure Is this a current diagnosis for this admission?: Yes Summary: Baseline creatinine approximately 2.5. Was 3.5 upon arrival to the ER. Has improved slightly with some fluids. We will continue hydration overnight. Most likely secondary to use of Bactrim which she was treated with for her UTI last w ute. 01/15/2019-patient's admission creatinine is 3.5 it was improved to 3.22 today. Presently on IV fluids normal saline at 75 cc/h for giving gentle hydration because of the history of congestive heart failure. Plan is to recheck her labs tomorrow morning. Patient is supposed to see Dr. Steinberg as outpatient 2 days ago because of this hospital admission they had to cancel the appointment during this hospital stay they want to see Dr. Steinberg for consultation. 01/16/2019-patient's admission creatinine is 3.5 improved to 3.22 yesterday she is getting IV fluids 75 cc/h. Be watching for the fluid overload because of history of congestive heart failure. Consult was placed for Dr. Steinberg. Again waiting for the today's labs to see any improvement in kidney function. 01/17/2019-patient creatinine came down to 2.38 today on admission it was 3.5 acute on chronic renal failure is resolving. It is most likely secondary to prerenal causes. 01/18/2019-patient came in with creatinine of 3.5 it came down to 2.04 today acute kidney injury secondary to prerenal causes is resolved. Patient creati nine is back to the baseline. Patient was strongly advised to follow-up with Dr. Steinberg in 1 week. (2) Hyperkalemia Is this a current diagnosis for this admission?: Yes Summary: 01/15/2019-serum potassium level today is 5.6. She is going to receive Veltassa 25.6 g daily and also started on Kayexalate 30 g daily. Plan is to recheck the potassium levels this evening and also tomorrow morning. EKG did not show any abnormalities except for chronic atrial fibrillation.. 01/16/2019-patient potassium is 5.6 yesterday, today's labs are pending. Patient is receiving Veltassa 25.6 g daily. She is also received Kayexalate. Again w aiting for the labs today. Hyperkalemia most likely secondary to chronic kidney disease. 01/17/2019-potassium level came back 4.6. Yesterday's potassium is 5.6 she is on Veltassa 25.6 mg p.o. daily patient also received Kayexalate. Hyperkalemia most likely secondary to chronic kidney disease is resolved. 01/18/2019-serum potassium is 4.7 today she came in with hyperkalemia secondary to acute kidney injury which was resolved. (3) Right sided weakness Is this a current diagnosis for this admission?: No Summary: When initially seen in the ER had right upper and lower extremity weakness. When evaluated by myself only had right upper extremity weakness. Does appear to be improving her potassium is also improved as initially being seen in the ER. We will continue to monitor if right arm weakness is not improving by karina rowe we will get MRI 01/15/2019-patient has history of CVA initially in the emergency room complains of right upper and lower extremity weakness. CT head was negative. We going to arrange for the MRI of the brain without contrast today. Patient alert and oriented communicating very well this morning. 01/16/2019-patient was admitted with right-sided weakness weakness was resolved. CT head was negative MRI of the brain was negative for acute pathology. Facial CT is negative for fractures. Physical therapy consult was requested. Right- sided weakness may be secondary to transient ischemic attack. 01/17/2019 patient came in with complaints of right-sided weakness which was resolved. No evidence of new stroke. 01/18/2019-patient came in with complaints of right-sided weakness CT head was negative no acute changes in the hospital right sided weakness may be most likely secondary to TIA is resolved. (4) CKD (chronic kidney disease), stage III Is this a current diagnosis for this admission?: No Summary: Is a base creatinine of approximately 2.5 was 3.5 on arrival to the ER improved with IV fluids. We will continue IV fluids at a lower rate. Will watch for signs of fluid overload as patient has a history of congestive heart failure. Monitor renal function daily. 01/15/2019 patient has history of chronic kidney disease they are planning to see Dr. Steinberg as an outpatient in the meantime she was admitted in the hospital be going to place a consult for Dr. Steinberg today. 01/16/2019-patient has history of chronic kidney disease creatinine was improved to 3.22. Consult was placed for Dr. Steinberg. Hopefully he is able to evaluate the patient during the hospital stay. 01/17/2019-patient has a chronic kidney disease latest creatinine is 2.38 she looks like she has stage III kidney disease I strongly recommend that the family to get another appointment with Dr. Steinberg. 01/18/2019-patient has history of chronic kidney disease creatinine today is 2.08 she has stage III kidney disease she is missed appointment with Dr. Steinberg I strongly advised the family called the office back again and make further appointments. (5) Abnormal urinalysis Is this a current diagnosis for this admission?: Yes Summary: 01/15/2019-urinalysis shows no reappearance and leukocyte esterase is large with trace bacteria she was treated with Bactrim for UTI 1 week ago patient has a low-grade fever of 99.2 today asymptomatic plan is to continue to closely monitor her we are going to hold off the antibiotics for now. 01/16/2019-on admission urinalysis shows large leukocyte esterase positive trace bacteria recently treated with Bactrim. Temperature is 98.8 afebrile antibiotics are not started during this hospital stay. 01/17/2019-patient was treated for UTI with Bactrim recently she is afebrile during the hospital stay temperature is 97.4 no need for antibiotic therapy at this moment. 06/20/2019-patient came in with abnormal urine analysis afebrile no antibiotics started at this hospital stay patient is afebrile throughout the hospital course. (6) Atrial fibrillation Is this a current diagnosis for this admission?: No Summary: 01/15/2019-family is giving the history that patient has irregular heartbeat they do not know what is atrial fibrillation is the also told me patient is not on any anticoagulation except for aspirin at home. Patient is also on heparin 5000 units every 8 hours for DVT prophylaxis. 01/16/2019-h/o of chronic paroxysmal atrial fibrillation not on anticoagulation at home. Here she is on heparin 5000 units every 8 hours. Patient is on aspirin 325 mg p.o. daily and DVT prophylaxis. Plan is to continue the present management. 01/17/2019-patient has history of chronic paroxysmal atrial fibrillation not on anticoagulation she is on heparin 5000 units subcu every 8 hours and started her on aspirin 325 mg p.o. daily on examination today patient is in sinus rhythm heart murmur is present. Heart rate in the 70s's. 08/2019-patient has history of chronic paroxysmal atrial fibrillation as per the family she is not on anticoagulation she was placed on aspirin here patient was advised to follow-up with her sewage plant attendant as an outpatient. (7) Anemia of chronic disease Is this a current diagnosis for this admission?: No Summary: 01/17/2019 patient has history of anemia of chronic disease most likely secondary to chronic kidney disease hemoglobin dropped to 1.5 yesterday 1 unit of PRBC gi stormy hemoglobin today 8.5. Patient may need Procrit injections in the future advised the family follow-up with the Dr. Steinberg. 06/20/2019-patient hemoglobin is 0.4 she received 1 unit of blood transfusion during the hospital stay. Anemia of chronic disease most likely secondary to chronic renal insufficiency. (8) Fall Is this a current diagnosis for this admission?: Yes Summary: 01/18/2019-patient has history of fall at home PT OT consult was done here patient did very well CT head facial CT came back negative. Patient already has home health set up. Fall precautions are advised patient is going home today. (9) Diabetes mellitus, type II, insulin dependent Is this a current diagnosis for this admission?: No Summary: 01/18/2019-patient has history of type 2 diabetes mellitus she is on insulin 50 units twice a day at home this morning blood sugars are running low going to decrease the insulin to 30 units twice a day patient was advised to follow-up with her primary care physician in 3-5 days for further adjustment in the medication. - Additional Information Resuscitation Status: Do Not Resuscitate Discharge Diet: Diabetic Discharge Activity: Activity As Tolerated Prescriptions: Insulin Glargine,Hum.rec.anlog [Lantus Insulin Inj 300 Unit/3 ml Pen] 30 unit SUBCUT BID #100 ml Home Medications: Albuterol Sulfate [Proair HFA Inhalation Aerosol 8.5 gm MDI] 2 puff IH Q8HP PRN 01/14/19 Albuterol Sulfate [Ventolin 0.083% Neb 2.5 mg/3 mL Ampul] 2.5 mg NEB RTQIDP PRN 01/14/19 Aspirin [Adult Low Dose Aspirin EC] 81 mg PO DAILY 01/14/19 Clotrimazole/Betamethasone Dip [Lotrisone Cream] 1 applic TOP BID 01/14/19 Diazepam [Valium 5 mg Tablet] 5 mg PO TIDP PRN 01/14/19 Diphenhydramine HCl [Allergy Relief] 25 mg PO QHS 01/14/19 Diphenoxylate HCl/Atrop Sulf [Lomotil 2.5 mg Tablet] 1 tab PO TIDP PRN 01/14/19 Ezetimibe [Zetia 10 mg Tablet] 10 mg PO DAILY 01/14/19 Fenofibrate 160 mg PO DAILY 01/14/19 Fluticasone/Salmeterol [Advair 250-50 Diskus 14 Dose/Diskus] 1 puff IH BID 01/14/19 Gabapentin [Neurontin] 600 mg PO Q12 01/14/19 Hydroxyzine HCl [Atarax 50 mg Tablet] 50 mg PO TIDP PRN 01/14/19 Insulin Aspart [Novolog Flexpen] 0 units SQ .PERSLIDINGSCALE 01/14/19 Insulin Glargine,Hum.rec.anlog [Basaglar Kwikpen U-100] 50 units SQ BID 01/14/19 Linaclotide [Linzess] 72 mcg PO DAILY 01/14/19 Melatonin/Pyridoxine [Melatonin 5 mg Tablet] 1 tab PO QPM 01/14/19 Metoprolol Succinate [Toprol Xl 25 mg Tab.sr] 25 mg PO DAILY 01/14/19 Ondansetron [Ondansetron Odt] 8 mg PO DAILYP PRN 01/14/19 Oxycodone HCl/Acetaminophen [Percocet 5-325 mg Tablet] 1 tab PO Q6HP PRN 01/14/19 Rosuvastatin Calcium [Crestor] 40 mg PO QHS 01/14/19 Insulin Glargine,Hum.rec.anlog [Lantus Insulin Inj 300 Unit/3 ml Pen] 30 unit SUBCUT BID #100 ml 01/18/19 History of Present Illness History of Present Illness: PRECIOUS BURCH is a 73 year old female 73 year old female presents to the ER with complaint of a recent fall. She fell this morning and hit the side of her head. She had difficulty ambulating after that. When she was brought to the ER she was noted to have right-sided weakness. He does have a history of an old CVA with left-sided weakness. Her and her stated last week she was treated for UTI. She was seen initially in the ER. And then followed up with her PCP her antibiotics were changed to Bactrim. Since that time she has not been eating or drinking very well. She has been feeling more unsteady on her feet but the right arm weakness is new since the fall today. She does have a history of cardiovascular disease she has been seen by a sewage plant attendant over a who has recommended that she have a cardiac cath. They have been waiting for her kidneys to improve prior to doing the catheterization. Physical Exam Vital Signs: Temp Pulse Resp BP Pulse Ox 97.6 F 67 20 147/51 H 93 01/18/19 07:20 01/18/19 07:20 01/18/19 07:20 01/18/19 07:20 01/18/19 07:20 Intake & Output 01/17/19 01/18/19 01/19/19 05:59 06:59 06:59 Intake Total Output Total Balance Weight General appearance: PRESENT: no acute distress Head exam: PRESENT: atraumatic Eye exam: PRESENT: PERRLA Mouth exam: PRESENT: moist, tongue midline Neck exam: ABSENT: carotid bruit, JVD, lymphadenopathy, thyromegaly Respiratory exam: PRESENT: clear to auscultation cheli. ABSENT: rales, rhonchi, wheezes Cardiovascular exam: PRESENT: irregular rhythm Pulses: PRESENT: normal dorsalis pedis pul GI/Abdominal exam: PRESENT: normal bowel sounds, soft. ABSENT: distended, guarding, mass, organolmegaly, rebound, tenderness Neurological exam: PRESENT: alert, awake, oriented to person, oriented to place, oriented to time, oriented to situation, CN II-XII grossly intact. ABSENT: motor sensory deficit Psychiatric exam: PRESENT: appropriate affect, normal mood. ABSENT: homicidal ideation, suicidal ideation Results Laboratory Results: 01/18/19 10:14 01/18/19 10:14 01/18/19 01/18/19 10:14 10:14 WBC 5.3 RBC 3.10 L Hgb 9.4 L Hct 28.3 L MCV 91 MCH 30.5 MCHC 33.3 RDW 14.6 H Plt Count 105 L Seg Neutrophils % 61.6 Lymphocytes % 25.3 Monocytes % 7.7 Eosinophils % 4.8 Basophils % 0.6 Absolute Neutrophils 3.3 Absolute Lymphocytes 1.3 Absolute Monocytes 0.4 Absolute Eosinophils 0.3 Absolute Basophils 0.0 Sodium 136.9 L Potassium 4.7 Chloride 104 Carbon Dioxide 23 Anion Gap 10 BUN 36 H Creatinine 2.04 H Est GFR ( Amer) 29 L Est GFR (Non-Af Amer) 24 L Glucose 231 H Calcium 8.7 Magnesium 1.9 Total Bilirubin 0.4 AST 37 H ALT 23 Alkaline Phosphatase 70 Total Protein 6.8 Albumin 3.7 01/14/19 01/14/19 07:50 07:50 Creatine Kinase 115 Troponin I < 0.012 Impressions: Chest X-Ray 01/14/19 07:42 IMPRESSION: NO ACUTE RADIOGRAPHIC FINDING IN THE CHEST. Head CT 01/14/19 07:42 IMPRESSION: NORMAL BRAIN CT WITHOUT CONTRAST. EVIDENCE OF ACUTE STROKE: NO. Cervical Spine CT 01/14/19 07:43 IMPRESSION: CHRONIC DEGENERATIVE CHANGES. NO ACUTE FINDINGS. Facial Bones CT 01/14/19 07:43 IMPRESSION: 1. No facial fracture evident. Head MRI 01/15/19 00:00 IMPRESSION: Age-appropriate atrophy with minor small vessel ischemic change. Polyps of the maxillary sinuses with partial opacification right mastoid air cells copyright 2011 [email or web address] [facility] [employer]- All Rights Reserved Qualifiers - * PATIENT BEING DISCHARGED WITH ANY OF THE FOLLOWING DIAGNOSIS: No VTE patient discharged on overlapping Therapy?: Yes
[2019-01-18 13:14] VITALS: BP 163/49
== END 2019-01-18 13:45 | disposition home or self-care (01) | DRG 683 ==
LOC: ER 07:33 → EH 14:18 → 4N 16:10 → OBSVTOIN 01-15 09:00
PROVIDERS: ADMIT Internal Medicine; ATTEND Internal Medicine
PROC: 30233N1 Transfusion of Nonautologous Red Blood Cells into Peripheral Vein, Percutaneous Approach (ICD-10-PCS; principal; 2019-01-16)
DX: N17.9 Acute kidney failure, unspecified (principal); I69.351 Hemiplegia and hemiparesis following cerebral infarction affecting right dominant side; T37.0X5A Adverse effect of sulfonamides, initial encounter; E87.5 Hyperkalemia; N18.3 Chronic kidney disease, stage 3 (moderate); I48.0 Paroxysmal atrial fibrillation; Z66 Do not resuscitate; D63.1 Anemia in chronic kidney disease; E11.22 Type 2 diabetes mellitus with diabetic chronic kidney disease; W01.0XXA Fall on same level from slipping, tripping and stumbling without subsequent striking against object, initial encounter; I25.10 Atherosclerotic heart disease of native coronary artery without angina pectoris; E78.5 Hyperlipidemia, unspecified; G47.30 Sleep apnea, unspecified; J44.9 Chronic obstructive pulmonary disease, unspecified; K21.9 Gastro-esophageal reflux disease without esophagitis; F32.9 Major depressive disorder, single episode, unspecified; I12.9 Hypertensive chronic kidney disease with stage 1 through stage 4 chronic kidney disease, or unspecified chronic kidney disease; I25.2 Old myocardial infarction; Z79.4 Long term (current) use of insulin; Z79.899 Other long term (current) drug therapy; Z79.82 Long term (current) use of aspirin; Z95.1 Presence of aortocoronary bypass graft; Z95.5 Presence of coronary angioplasty implant and graft; Z90.49 Acquired absence of other specified parts of digestive tract; Z98.84 Bariatric surgery status; Z87.891 Personal history of nicotine dependence; Z88.6 Allergy status to analgesic agent; Z88.1 Allergy status to other antibiotic agents; Z88.8 Allergy status to other drugs, medicaments and biological substances; Z83.3 Family history of diabetes mellitus; Z82.49 Family history of ischemic heart disease and other diseases of the circulatory system
CPT/HCPCS: 36415; 36430; 70450; 70486; 70551; 71045; 72125; 80048; 80053; 81001; 82550; 82962; 83735; 84484; 85025; 85610; 86850; 86870; 86900; 86901; 86920; 86922; 93005; 93010; 96361; 96374; 96375; 99285; G0378; J0610; J1815; J3360; J3490; J7030; P9016; S0119

== ENCOUNTER 2019-01-28 17:27 | Inpatient (IN) | payer MEDICARE, MEDICAID ==
--- NOTE | 2019-01-28 17:48 | ER Document Report ---
ED Medical Screen (RME) - General Chief Complaint: Shortness Of Breath Stated Complaint: SHORTNESS OF BREATH Time Seen by Provider: 01/28/19 17:41 Primary Care Provider: DANI PANDA DO [Primary Care Provider] - Follow up as needed Notes: 73-year-old female patient comes emergency room for shortness of breath and generalized swelling. She was admitted recently and discharged 10 days ago. Her Lasix was stopped due to renal insufficiency. I have greeted and performed a rapid initial assessment of this patient. A comprehensive ED assessment and evaluation of the patient, analysis of test results and completion of the medical decision making process will be conducted by additional ED providers. TRAVEL OUTSIDE OF THE [place] IN LAST 30 DAYS: No - Related Data Allergies/Adverse Reactions: amoxicillin trihydrate [From Augmentin] Allergy (Severe, Verified 01/06/19 14:12) stomach cramps, n and v, rash butalbital [From Fiorinal] Allergy (Unknown, Verified 01/06/19 14:12) rash metformin HCl [From Glucophage] Allergy (Unknown, Verified 01/06/19 14:12) rash Potassium Clavulanate * [From Augmentin] Adverse Reaction (Unknown, Verified 01/06/19 14:12) nausea, vomit, epig pain Past Medical History - Social History Chew tobacco use (# tins/day): No Frequency of alcohol use: None Drug Abuse: None - Past Medical History Cardiac Medical History: Reports: Hx Congestive Heart Failure, Hx Coronary Artery Disease - BYPASS 2001, Hx Heart Attack, Hx Hypercholesterolemia, Hx Hypertension Pulmonary Medical History: Reports: Hx Asthma, Hx Bronchitis, Hx COPD, Hx Pn eumonia, Hx Sleep Apnea - no cpap insurance does not cover Denies: Hx Tuberculosis Neurological Medical History: Reports: Hx Cerebrovascular Accident - X4. Denies: Hx Seizures Endocrine Medical History: Reports: Hx Diabetes Mellitus Type 2 - DX [place] 1994 Renal/ Medical History: Reports: Hx End Stage Renal Disease, Hx Kidney Stones. Denies: Hx Peritoneal Dialysis GI Medical History: Reports: Hx Ulcer. Denies: Hx Cirrhosis, Hx Gastroesophageal Reflux Disease, Hx Pancreatitis Musculoskeltal Medical History: Reports Hx Arthritis, Denies Hx Multiple Sclerosis Psychiatric Medical History: Reports: Hx Depression Denies: Hx Bipolar Disorder, Hx Schizophrenia Past Surgical History: Reports: Hx Cardiac Catheterization - w/stent, Hx Section, Hx Cholecystectomy, Hx Gastric Bypass Surgery - 2001 and stent, Hx Open Heart Surgery - 2001 TRIPLE BYPASS, Hx Rectal Surgery, Hx Tubal Ligation. Denies: Hx Hysterectomy - Immunizations Hx Diphtheria, Pertussis, Tetanus Vaccination: No History of Influenza Vaccine for 08/2017 - 01/2018 Season: No Physical Exam - Vital signs Vitals: Temp Pulse Resp BP Pulse Ox 97.5 F 66 20 145/55 H 89 L 01/28/19 17:38 01/28/19 17:38 01/28/19 17:38 01/28/19 17:38 01/28/19 17:38 Course - Vital Signs Vital signs: Temp Pulse Resp BP Pulse Ox 97.5 F 66 20 145/55 H 89 L 01/28/19 17:38 01/28/19 17:38 01/28/19 17:38 01/28/19 17:38 01/28/19 17:38 Doctor's Discharge - Discharge Referrals: DANI PANDA DO [Primary Care Provider] - Follow up as needed
--- NOTE | 2019-01-28 18:40 | RADIOLOGY REPORT (SQ) ---
EXAM DESCRIPTION: CHEST SINGLE VIEW COMPLETED DATE/TIME: 01/28/2019 6:33 pm REASON FOR STUDY: Short of breath, edema COMPARISON: 01/14/2019 EXAM PARAMETERS: NUMBER OF VIEWS: One view. TECHNIQUE: Single frontal radiographic view of the chest acquired. RADIATION DOSE: NA LIMITATIONS: None. FINDINGS: LUNGS AND PLEURA: Mild pulmonary edema. MEDIASTINUM AND HILAR STRUCTURES: No masses. Contour normal. HEART AND VASCULAR STRUCTURES: Cardiomegaly. BONES: No acute findings. HARDWARE: None in the chest. OTHER: No other significant finding. IMPRESSION: Cardiomegaly with mild pulmonary edema. TECHNICAL DOCUMENTATION: JOB ID: [id number] [employer]- All Rights Reserved Reading location - IP/workstation name: [email or web address]
[2019-01-28 19:17] LABS: ABSOLUTE BASOPHILS # (AUTO) 0.1 10^3/uL (0.0-0.2); ABSOLUTE EOSINOPHILS # (AUTO) 0.4 10^3/uL (0.0-0.6); ABSOLUTE LYMPHOCYTES (AUTO) 1.2 10^3/uL (0.5-4.7); ABSOLUTE MONOCYTES (AUTO) 0.6 10^3/uL (0.1-1.4); ABSOLUTE NEUT (AUTO) 5.3 10^3/uL (1.7-8.2); BASOPHILS % (AUTO) 0.9 % (0-2); EOSINOPHILS % (AUTO) 5.3 % (0-6); HEMATOCRIT 28.7 % (36.0-47.0); HEMOGLOBIN 9.5 g/dL (12.0-15.5); LYMPHOCYTES % (AUTO) 16.3 % (13-45); MEAN CORPUSCULAR HEMOGLOBIN 30.8 pg (27.0-33.4); MEAN CORPUSCULAR HGB CONC 33.1 g/dL (32.0-36.0); MEAN CORPUSCULAR VOLUME 93 fl (80-97); PLATELET COUNT 162 10^3/uL (150-450); RED BLOOD COUNT 3.08 10^6/uL (3.72-5.28); RED CELL DISTRIBUTION WIDTH 15.6 % (11.5-14.0); SEGMENTED NEUTROPHILS % (AUTO) 69.5 % (42-78); TOTAL CELLS COUNTED % (AUTO) 100 %; WHITE BLOOD COUNT 7.6 10^3/uL (4.0-10.5)
[2019-01-28 19:26] LABS: APPEARANCE,URINE CLOUDY; BILIRUBIN,URINE NEGATIVE (NEGATIVE); COLOR,URINE YELLOW; GLUCOSE, URINE NEGATIVE (NEGATIVE); KETONES,URINE NEGATIVE (NEGATIVE); LEUKOCYTE ESTERASE,URINE LARGE (NEGATIVE); NITRITE,URINE NEGATIVE (NEGATIVE); PROTEIN,URINE 100 mg/dL (NEGATIVE); URINE SPECIFIC GRAVITY 1.015; UROBILINOGEN,URINE NEGATIVE mg/dL (<2.0)
[2019-01-28 19:36] LABS: ALANINE AMINOTRANSFERASE 24 U/L (9-52); ALBUMIN 3.6 g/dL (3.5-5.0); ALKALINE PHOSPHATASE 74 U/L (38-126); ANION GAP 7 (5-19); ASPARTATE AMINO TRANSFERASE 23 U/L (14-36); BILIRUBIN,DIRECT 0.3 mg/dL (0.0-0.4); BILIRUBIN,TOTAL 0.5 mg/dL (0.2-1.3); BLOOD UREA NITROGEN 38 mg/dL (7-20); CALCIUM 8.4 mg/dL (8.4-10.2); CARBON DIOXIDE 26 mmol/L (22-30); CHLORIDE 109 mmol/L (98-107); CREATINE KINASE 73 U/L (30-135); GLUCOSE 152 mg/dL (75-110); POTASSIUM 5.6 mmol/L (3.6-5.0); TOTAL PROTEIN 6.9 g/dL (6.3-8.2)
[2019-01-28 19:52] LABS: CREATINE KINASE MB 1.64 ng/mL (<4.55); NT PRO BNP 6080 pg/mL (5-900)
[2019-01-28 19:54] LABS: TROPONIN I < 0.012 ng/mL
--- NOTE | 2019-01-28 21:13 | ER Document Report ---
Entered by JAMAL SHANE SCRIBE 01/28/192041 Acting as scribe for:DOMINICK VALENTE DO ED General - General Chief Complaint: Shortness Of Breath Stated Complaint: SHORTNESS OF BREATH Time Seen by Provider: 01/28/19 17:41 Primary Care Provider: DANI WILSON DO [Primary Care Provider] - Follow up as needed Mode of Arrival: Ambulatory Information source: Patient Notes: Patient is a 73-year-old female CHF, CAD, hypertension presents to the emergency department complaining shortness of breath onset last night. She states her shor tness of breath is exacerbated on exertion and also complains of a non productive cough. She denies any fevers. Patient was recently told to discontinue Lasix due to a decrease in kidney function. at bedside states that the patient has had an increase in facial swelling and breast swelling. Patient is not normally on oxygen at home. Her PCP is Dr. Wilson. TRAVEL OUTSIDE OF THE [place] IN LAST 30 DAYS: No - Related Data Allergies/Adverse Reactions: amoxicillin trihydrate [From Augmentin] Allergy (Severe, Verified 01/06/19 14:12) stomach cramps, n and v, rash butalbital [From Fiorinal] Allergy (Unknown, Verified 01/06/19 14:12) rash metformin HCl [From Glucophage] Allergy (Unknown, Verified 01/06/19 14:12) rash Potassium Clavulanate * [From Augmentin] Adverse Reaction (Unknown, Verified 01/06/19 14:12) nausea, vomit, epig pain Past Medical History - General Information source: Patient - Social History Smoking Status: Former Smoker Chew tobacco use (# tins/day): No Frequency of alcohol use: None Drug Abuse: None Family History: DM, Hypertension Patient has suicidal ideation: No Patient has homicidal ideation: No - Past Medical History Cardiac Medical History: Reports: Hx Congestive Heart Failure, Hx Coronary Artery Disease - BYPASS 2001, Hx Heart Attack, Hx Hypercholesterolemia, Hx Hypertension Pulmonary Medical History: Reports: Hx Asthma, Hx Bronchitis, Hx COPD, Hx Pneumonia, Hx Sleep Apnea - no cpap insurance does not cover Neurological Medical History: Reports: Hx Cerebrovascular Accident - X4 Endocrine Medical History: Reports: Hx Diabetes Mellitus Type 2 - DX [place] 1994 Renal/ Medical History: Reports: Hx End Stage Renal Disease, Hx Kidney Stones GI Medical History: Reports: Hx Ulcer Musculoskeletal Medical History: Reports Hx Arthritis Psychiatric Medical History: Reports: Hx Depression Past Surgical History: Reports: Hx Cardiac Catheterization - w/stent, Hx Section, Hx Cholecystectomy, Hx Gastric Bypass Surgery - 2001 and stent, Hx Open Heart Surgery - 2001 TRIPLE BYPASS, Hx Rectal Surgery, Hx Tubal Ligation - Immunizations Hx Diphtheria, Pertussis, Tetanus Vaccination: No Hx Pneumococcal Vaccination: 11/11/14 Review of Systems - Review of Systems Constitutional: No symptoms reported EENT: No symptoms reported Cardiovascular: No symptoms reported Respiratory: See HPI Gastrointestinal: No symptoms reported Genitourinary: No symptoms reported Female Genitourinary: No symptoms reported Musculoskeletal: See HPI Skin: No symptoms reported Hematologic/Lymphatic: No symptoms reported Neurological/Psychological: No symptoms reported -: Yes All other systems reviewed and negative Physical Exam - Vital signs Vitals: Temp Pulse Resp BP Pulse Ox 97.5 F 66 20 145/55 H 89 L 01/28/19 17:38 01/28/19 17:38 01/28/19 17:38 01/28/19 17:38 01/28/19 17:38 - Notes Notes: GENERAL: Alert, interacts well. No acute distress. HEAD: Normocephalic, atraumatic. EYES: Pupils equal, round, and reactive to light. Extraocular movements intact. ENT: Oral mucosa moist, tongue midline. NECK: Full range of motion. Supple. Trachea midline. LUNGS: Clear to auscultation bilaterally, no wheezes, rales, or rhonchi. No respiratory distress. HEART: Regular rate and rhythm. No murmurs, gallops, or rubs. ABDOMEN: Soft, non-tender. Non-distended. Bowel sounds present in all 4 quadrants. No guarding, rigidity, or rebound. EXTREMITIES: Moves all 4 extremities spontaneously. Pitting edema to the bilateral lower extremities. Radial and dorsalis pedis pulses 2+. NEUROLOGICAL: Alert and oriented x3. Normal speech. PSYCH: Normal affect, normal mood. SKIN: Warm, dry. No rashes or lesions noted. Course - Re-evaluation Re-evalutation: 01/28/19 20:51 Dr. Ferguson accepts patient for admission to [facility]. 01/28/19 21:11 Patient is a 73-year-old female who comes in complaining of worsening dyspnea on exertion and orthopnea. Patient was recently admitted to the hospital and had Lasix discontinued due to renal insufficiency acute on chronic. Today, patient is fluid overloaded with pitting edema, vascular congestion, and a new oxygen requirement. She is doing well on 2 L nasal cannula. Regardless, patient again has acute on chronic renal failure with a slightly elevated potassium and fluid overload. She will be a difficult volume balance. Discussed with the hospitalist who will admit the patient to telemetry. Patient is agreeable for this plan and stable at the time of admission. - Vital Signs Vital signs: Temp Pulse Resp BP Pulse Ox 97.5 F 66 20 145/55 H 89 L 01/28/19 17:38 01/28/19 17:38 01/28/19 17:38 01/28/19 17:38 01/28/19 17:38 - Laboratory Result Diagrams: 01/28/19 19:06 01/28/19 19:06 Laboratory results interpreted by me: 01/28/19 01/28/19 01/28/19 19:06 19:06 19:06 RBC 3.08 L Hgb 9.5 L Hct 28.7 L RDW 15.6 H Potassium 5.6 H Chloride 109 H BUN 38 H Creatinine 2.20 H Est GFR ( Amer) 27 L Est GFR (Non-Af Amer) 22 L Glucose 152 H NT-Pro-B Natriuret Pep 6080 H Urine Protein Urine Blood Ur Leukocyte Esterase 01/28/19 19:06 RBC Hgb Hct RDW Potassium Chloride BUN Creatinine Est GFR ( Amer) Est GFR (Non-Af Amer) Glucose NT-Pro-B Natriuret Pep Urine Protein 100 H Urine Blood SMALL H Ur Leukocyte Esterase LARGE H Discharge - Discharge Clinical Impression: Hypoxia Acute on chronic renal failure Qualifiers: Acute renal failure type: unspecified Chronic kidney disease stage: stage 3 (moderate) Qualified Code(s): N17.9 - Acute kidney failure, unspecified; N18.3 - Chronic kidney disease, stage 3 (moderate) CHF (congestive heart failure) Qualifiers: Heart failure type: unspecified Heart failure chronicity: acute on chronic Qualified Code(s): I50.9 - Heart failure, unspecified Condition: Stable Disposition: ADMITTED INPATIENT Admitting Provider: Hospitalist [facility] Unit Admitted: Telemetry Referrals: DANI WILSON DO [Primary Care Provider] - Follow up as needed Scribe Attestation: 01/28/19 21:13 I personally performed the services described in the documentation, reviewed and edited the documentation which was dictated to the scribe in my presence, and it accurately records my words and actions. I personally performed the services described in the documentation, reviewed and edited the documentation which was dictated to the scribe in my presence, and it accurately records my words and actions.
[2019-01-28] MEDS ORDERED: MAGNESIUM HYDROXIDE SUSP 30 ML UDCUP PO PRN (21:32)
[2019-01-28] MEDS ORDERED: MAG HYDROX/AL HYDROX/SIMETH SUSP 30 ML UDCUP PO PRN (21:32)
[2019-01-28] MEDS ORDERED: HYDRALAZINE HCL INJ/PF 20 MG/1 ML SDV IV PRN (21:39)
[2019-01-28] MEDS ORDERED: ACETAMINOPHEN 325 MG TABLET PO PRN (21:39)
[2019-01-28] MEDS ORDERED: ALBUTEROL SULFATE 0.083% NEB 2.5 MG/3 ML AMPUL NEB PRN (21:39)
[2019-01-28] MEDS ORDERED: NITROGLYCERIN 0.4 MG/TAB 25 TAB/BOTTLE SL PRN (21:40)
[2019-01-28] MEDS ORDERED: DIAZEPAM 5 MG TABLET PO PRN (21:40)
[2019-01-28] MEDS ORDERED: DEXTROSE 50%-WATER 25 GM/50 ML DISP.SYRIN IV PRN ×2 (21:45)
[2019-01-28] MEDS ORDERED: GLUCAGON,HUMAN RECOMB 1 MG INJ IM PRN (21:45)
[2019-01-28] MEDS ORDERED: DEXTROSE 40% GEL 15 GM TUBE PO PRN ×2 (21:45)
[2019-01-28 22:56] LABS: CREATINE KINASE MB 1.49 ng/mL (<4.55); TROPONIN I 0.021 ng/mL
[2019-01-28] MEDS: DIPHENHYDRAMINE HCL 25 MG CAPSULE PO SCH (22:58)
[2019-01-28] MEDS: MORPHINE SULFATE 10 MG/ML INJ IV PRN (22:58)
[2019-01-28] MEDS: FAMOTIDINE 20 MG TABLET PO SCH (22:58)
[2019-01-28] MEDS: HEPARIN SOD (PORCINE) 5,000 UNIT/ML 1 ML SYRINGE SUBCUT SCH (22:59)
[2019-01-29] MEDS: LEVALBUTEROL HCL NEB 1.25 MG/3 ML AMPUL NEB SCH ×3 (00:02→16:19)
[2019-01-29] MEDS: IPRATROPIUM BROMIDE 0.02% NEB 0.5 MG/2.5 ML AMPUL NEB SCH ×3 (00:02→16:19)
[2019-01-29] MEDS: FUROSEMIDE INJ/PF 40 MG/4 ML SDV IV SCH ×4 (00:25→21:37)
--- NOTE | 2019-01-29 02:07 | PDOC H&P ---
History of Present Illness Admission Date/PCP: 01/28/2019 DANI PANDA DO Patient complains of: Dyspnea History of Present Illness: PRECIOUS BURCH is a 73 year old female who presented to the emergency room with a 3-week history of progressively worsening dyspnea. She admits that she develo ped dyspnea actually prior to her last hospital admission and still had dyspnea at the time that she left the hospital which has only worsened since she was taken off of her diuretic medications during her hospital stay. She was discharged almost 2 weeks ago and symptoms have continued to worsen to the point where her dyspnea is now severe. Her dyspnea is significantly worsened by exertion and it has been accompanied by orthopnea at rest and a nonproductive cough during exertion. She also admits the associated symptoms of decreased urinary output, constipation and swelling of her left breast, face, abdomen and lower extremities. Patient admits that she has had numerous prior similar epis odes associated with her congestive heart failure and has not identified any additional aggravating or ameliorating factors for her dyspnea at this time. In the emergency room she was found to be hypoxic requiring supplemental oxygen to maintain an adequate O2 saturation. Additionally she had an elevated BNP and an elevated creatinine over her apparent baseline. Past Medical History Cardiac Medical History: Reports: Congestive Heart Failure, Coronary Artery Disease - BYPASS 2001, Myocardial Infarction, Hyperlipidema, Hypertension Denies: Atrial Fibrillation, DVT, Pulmonary Embolism Pulmonary Medical History: Reports: Asthma, Bronchitis, Chronic Obstructive Pulmonary Disease (COPD), Pneumonia, Respiratory Failure, Sleep Apnea - no cpap insurance does not cover Denies: Tuberculosis EENT Medical History: Reports: Eyes - Uses corrective lenses Denies: Cataracts Neurological Medical History: Reports: Ischemic CVA Denies: Hemorrhagic CVA, Seizures Endocrine Medical History: Reports: Diabetes Mellitus Type 2 - DX [place] 1994, Obesity Denies: Diabetes Mellitus Type 1, Hyperthyroidism, Hypothyroidism Renal/ Medical History: Reports: Chronic Kidney Disease Denies: Nephrolithiasis Malignancy Medical History: Reports: None GI Medical History: Denies: Cirrhosis, Gastroesophageal Reflux Disease, Hepatitis Musculoskeltal Medical History: Reports: Arthritis Denies: Gout Skin Medical History: Denies: Eczema, Psoriasis Psychiatric Medical History: Reports: Depression Denies: Alcohol Dependency, Substance Abuse, Tobacco Dependency Traumatic Medical History: Reports: None Hematology: Reports: Anemia, Bleeding Tendencies Infectious Medical History: Reports: None Past Surgical History Past Surgical History: Reports: Cardiac Catheterization, Section, Cholecystectomy, Coronary Stent, Gastric Bypass Surgery - 2002, Hysterectomy, Tubal Ligation Social History Information Source: Patient Lives with: Spouse/Significant other Smoking Status: Former Smoker Frequency of Alcohol Use: None Hx Recreational Drug Use: No Drugs: None Hx Prescription Drug Abuse: No - Advance Directive Resuscitation Status: Full Code Surrogate healthcare decision maker:: Spouse Family History Family History: CAD, DM, Hypertension, Malignancy, Other - Kidney disease Parental Family History Reviewed: Yes Children Family History Reviewed: No Sibling(s) Family History Reviewed.: Yes Medication/Allergy Home Medications: Albuterol Sulfate [Proair Hfa Inhalation Aerosol 8.5 gm Mdi] 2 puff IH Q8HP PRN 01/28/19 Albuterol Sulfate [Ventolin 0.083% Neb 2.5 mg/3 ml Ampul] 1 vial NEB QIDP PRN 01/28/19 Aspirin [Aspirin 81 mg Chewable Tablet] 81 mg PO DAILY 01/28/19 Clopidogrel Bisulfate [Plavix 75 mg Tablet] 75 mg PO DAILY 01/28/19 Diazepam [Valium 5 mg Tablet] 5 mg PO TIDP PRN 01/28/19 Diphenhydramine HCl [Allergy Relief] 25 mg PO QHS 01/28/19 Diphenoxylate HCl/Atropine [Lomotil Tablet] 1 tab PO TIDP PRN 01/28/19 Ezetimibe [Zetia 10 mg Tablet] 10 mg PO DAILY 01/28/19 Fenofibrate 160 mg PO DAILY 01/28/19 Fluticasone/Salmeterol [Advair 250-50 Diskus 14 Dose/Diskus] 1 inh IH Q12 01/28/19 Furosemide [Lasix 40 mg Tablet] 40 mg PO BID 01/28/19 Gabapentin [Neurontin] 600 mg PO Q12 01/28/19 Insulin Glargine,Hum.rec.anlog [Basaglar Kwikpen U-100] 50 unit SQ BID 01/28/19 Isosorbide Mononitrate [Imdur 60 mg Tablet.er] 60 mg PO DAILY 01/28/19 Linaclotide [Linzess] 72 mcg PO DAILY 01/28/19 Loratadine [Claritin 10 mg Tablet] 10 mg PO DAILY 01/28/19 Losartan Potassium [Cozaar 25 mg Tablet] 25 mg PO DAILY 01/28/19 Metoprolol Succinate [Toprol Xl 25 mg Tab.sr] 25 mg PO DAILY 01/28/19 Montelukast Sodium [Singulair 10 mg Tablet] 10 mg PO QPM 01/28/19 Nitroglycerin [Nitrostat 0.4 mg (1/150 Gr) Tabs 25/Bottle] 1 tab SL Q5MP PRN 01/28/19 Omeprazole 40 mg PO BIDACBS 01/28/19 Ondansetron [Ondansetron Odt] 8 mg PO DAILYP PRN 01/28/19 Oxycodone HCl/Acetaminophen [Percocet 5-325 mg Tablet] 1 tab PO Q6HP PRN 01/28/19 Rosuvastatin Calcium [Crestor] 40 mg PO QHS 01/28/19 Sitagliptin Phosphate [Januvia] 100 mg PO DAILY 01/28/19 Allergies/Adverse Reactions: amoxicillin trihydrate [From Augmentin] Allergy (Severe, Verified 01/06/19 14:12) stomach cramps, n and v, rash butalbital [From Fiorinal] Allergy (Unknown, Verified 01/06/19 14:12) rash metformin HCl [From Glucophage] Allergy (Unknown, Verified 01/06/19 14:12) rash Potassium Clavulanate * [From Augmentin] Adverse Reaction (Unknown, Verified 01/06/19 14:12) nausea, vomit, epig pain Review of Systems Constitutional: ABSENT: anorexia, chills, fever(s) Eyes: ABSENT: visual disturbances, other - Ocular pain Ears: ABSENT: hearing changes, other - Ear pain Nose, Mouth, and Throat: ABSENT: mouth pain, sore throat Cardiovascular: PRESENT: as per HPI, dyspnea on exertion, edema, orthropnea. ABSENT: chest pain, palpitations Respiratory: PRESENT: as per HPI, cough, dyspnea Gastrointestinal: ABSENT: abdominal pain, constipation, diarrhea, nausea, vomiting Genitourinary: ABSENT: dysuria, hematuria Musculoskeletal: ABSENT: back pain, joint swelling Integumentary: ABSENT: pruritus, rash Neurological: ABSENT: confusion, convulsions, focal weakness, memory loss Psychiatric: ABSENT: anxiety, depression Endocrine: ABSENT: cold intolerance, heat intolerance Hematologic/Lymphatic: ABSENT: easy bleeding, easy bruising Physical Exam Vital Signs: Temp Pulse Resp BP Pulse Ox 97.5 F 66 20 145/55 H 89 L 01/28/19 17:38 01/28/19 17:38 01/28/19 17:38 01/28/19 17:38 01/28/19 17:38 Intake & Output 01/26/19 01/27/19 01/28/19 23:59 23:59 23:59 Weight 101.3 kg General appearance: PRESENT: no acute distress, cooperative, morbidly obese, other - On O2 via nasal cannula Head exam: PRESENT: atraumatic, normocephalic Eye exam: PRESENT: conjunctiva pink. ABSENT: scleral icterus Ear exam: PRESENT: normal external ear exam. ABSENT: bleeding, drainage Mouth exam: PRESENT: dry mucosa, neck supple Neck exam: PRESENT: JVD - At 45 degrees of elevation, bilateral. ABSENT: thyromegaly, tracheal deviation Respiratory exam: PRESENT: prolonged expiratory phas - Minimally prolonged expiratory phase, rales - Moderate bibasilar fine rales, symmetrical, tachypnea - Mild tachypnea at 20 breaths/min, unlabored. ABSENT: accessory muscle use Cardiovascular exam: PRESENT: gallop - S4 gallop, RRR, other - Moderate edema of the left breast with 2+ pitting. ABSENT: clicks, rubs Pulses: PRESENT: normal radial pulses, normal dorsalis pedis pul Vascular exam: PRESENT: normal capillary refill. ABSENT: pallor GI/Abdominal exam: PRESENT: normal bowel sounds, soft, other - Mild edema of the left lower abdominal pannus Rectal exam: PRESENT: deferred Extremities exam: PRESENT: pedal edema, +2 edema - 2-3+ pitting edema of the bilateral lower extremities to the mid thighs. ABSENT: joint swelling, tenderness Musculoskeletal exam: ABSENT: deformity, dislocation Neurological exam: PRESENT: alert, awake, oriented to person, oriented to place, oriented to time, oriented to situation, CN II-XII grossly intact. ABSENT: motor sensory deficit Psychiatric exam: PRESENT: appropriate affect, normal mood Skin exam: PRESENT: dry, intact, warm. ABSENT: jaundice, rash, urticaria Results Laboratory Results: 01/28/19 19:06 01/28/19 19:06 01/28/19 01/28/19 01/28/19 19:06 19:06 19:06 WBC 7.6 RBC 3.08 L Hgb 9.5 L Hct 28.7 L MCV 93 MCH 30.8 MCHC 33.1 RDW 15.6 H Plt Count 162 Seg Neutrophils % 69.5 Lymphocytes % 16.3 Monocytes % 8.0 Eosinophils % 5.3 Basophils % 0.9 Absolute Neutrophils 5.3 Absolute Lymphocytes 1.2 Absolute Monocytes 0.6 Absolute Eosinophils 0.4 Absolute Basophils 0.1 Sodium 142.0 Potassium 5.6 H Chloride 109 H Carbon Dioxide 26 Anion Gap 7 BUN 38 H Creatinine 2.20 H Est GFR ( Amer) 27 L Est GFR (Non-Af Amer) 22 L Glucose 152 H Calcium 8.4 Magnesium 2.2 Total Bilirubin 0.5 AST 23 ALT 24 Alkaline Phosphatase 74 Total Protein 6.9 Albumin 3.6 Urine Color YELLOW Urine Appearance CLOUDY Urine pH 5.0 Ur Specific Huntley 1.015 Urine Protein 100 H Urine Glucose (UA) NEGATIVE Urine Ketones NEGATIVE Urine Blood SMALL H Urine Nitrite NEGATIVE Ur Leukocyte Esterase LARGE H Urine WBC (Auto) 139 Urine RBC (Auto) 26 01/28/19 01/28/19 19:06 19:06 Creatine Kinase 73 CK-MB (CK-2) 1.64 Troponin I < 0.012 NT-Pro-B Natriuret Pep 6080 H Impressions: Chest X-Ray 01/28/19 17:45 IMPRESSION: Cardiomegaly with mild pulmonary edema. Assessment and Plan - Diagnosis (1) Acute respiratory failure with hypoxia Is this a current diagnosis for this admission?: Yes Plan: Patient be treated with supplemental oxygen is required throughout her hospital course to maintain her O2 sat at a level of greater than 92%. (2) Acute on chronic diastolic (congestive) heart failure Is this a current diagnosis for this admission?: Yes Plan: Patient will be treated with aggressive diuretic therapy utilizing Lasix 40 mg IV every 6 hours with adjustments made to her medications including her cardiac and diabetic medications to eliminate any medications which may be contributing to her problems. She is on a telemetry floor and will be monitored closely for clinical improvement of her heart failure. An echocardiogram has been ordered. Serial cardiac enzymes as well as EKG determinations will be made to rule out acute cardiac ischemia or injury. (3) Acute on chronic renal failure Qualifiers: Acute renal failure type: unspecified Chronic kidney disease stage: stage 3 (moderate) Qualified Code(s): N17.9 - Acute kidney failure, unspecified; N18.3 - Chronic kidney disease, stage 3 (moderate) Is this a current diagnosis for this admission?: Yes Plan: All medications which may be contributing to patient's renal insufficiency will be discontinued. She will need to be treated with furosemide either in an aggressive every 6 hours or IV dose or a possible IV infusion for her heart failure. Her renal functions will be closely monitored with daily BMPs throughout this course. (4) COPD (chronic obstructive pulmonary disease) Qualifiers: COPD type: unspecified COPD Qualified Code(s): J44.9 - Chronic obstructive pulmonary disease, unspecified Is this a current diagnosis for this admission?: Yes Plan: Patient be treated with a basic pulmonary nebulizer toilet utilizing Xopenex and Atrovent every 8 hours with Pulmicort every 12 hours and a as needed nebulizer therapy with albuterol as required. (5) Diabetes mellitus type 2 in obese Is this a current diagnosis for this admission?: Yes Plan: Patient's diabetes will be treated with her usual medications minus those agents which may have been negative impact on her renal or cardiac function. Additionally she will have before meals and at bedtime blood sugars with a sliding scale utilizing regular insulin to maintain glycemic control during her hospital course. (6) Morbid obesity with BMI of 45.0-49.9, adult Is this a current diagnosis for this admission?: Yes Plan: Patient will be seen in consultation by the dietitian for evaluation of her dietary needs and treating her multiple illnesses. Additional directions towards a diet that would aid in weight loss and lifestyle changes that may improve her overall health and well-being will be made. - Time Time Spent with patient: 35 or more minutes Medications reviewed and adjusted accordingly: Yes Anticipated discharge: Home, Home with Homehealth - Inpatient Certification Based on my medical assessment, after consideration of the patient's comorbidities, presenting symptoms, or acuity I expect that the services needed warrant INPATIENT care.: Yes I certify that my determination is in accordance with my understanding of Medicare's requirements for reasonable and necessary INPATIENT services [42 CFR 412.3e].: Yes Medical Necessity: Significant Comorbidiites Make Outpatient Treatment Too Risky, Need Close Monitoring Due to Risk of Patient Decompensation, Need For Continuous Telemetry Monitoring, Need for Nebulizer Therapy and Monitoring of Response, Risk of Complication if Not Cared For in Hospital
[2019-01-29] MEDS: HEPARIN SOD (PORCINE) 5,000 UNIT/ML 1 ML SYRINGE SUBCUT SCH ×3 (05:19→21:34)
[2019-01-29 05:27] LABS: ABSOLUTE EOSINOPHILS # (AUTO) 0.3 10^3/uL (0.0-0.6); ABSOLUTE LYMPHOCYTES (AUTO) 1.5 10^3/uL (0.5-4.7); ABSOLUTE MONOCYTES (AUTO) 0.5 10^3/uL (0.1-1.4); ABSOLUTE NEUT (AUTO) 3.5 10^3/uL (1.7-8.2); BASOPHILS % (AUTO) 0.4 % (0-2); EOSINOPHILS % (AUTO) 5.3 % (0-6); HEMATOCRIT 25.2 % (36.0-47.0); HEMOGLOBIN 8.3 g/dL (12.0-15.5); LYMPHOCYTES % (AUTO) 25.7 % (13-45); MEAN CORPUSCULAR HEMOGLOBIN 30.4 pg (27.0-33.4); MEAN CORPUSCULAR VOLUME 92 fl (80-97); MONOCYTES % (AUTO) 9.1 % (3-13); PLATELET COUNT 133 10^3/uL (150-450); RED BLOOD COUNT 2.74 10^6/uL (3.72-5.28); RED CELL DISTRIBUTION WIDTH 15.5 % (11.5-14.0); SEGMENTED NEUTROPHILS % (AUTO) 59.5 % (42-78); TOTAL CELLS COUNTED % (AUTO) 100 %
[2019-01-29 05:45] LABS: CHOLESTEROL 74.44 mg/dL (0-200); TRIGLYCERIDES 170 mg/dL (<150)
[2019-01-29 05:56] LABS: DIRECT LDL 31 mg/dL (<100)
[2019-01-29 05:58] LABS: CREATINE KINASE MB 1.48 ng/mL (<4.55); TROPONIN I 0.022 ng/mL
[2019-01-29 06:05] LABS: FREE T3 3.68 pg/mL (2.77-5.27); FREE T4 (FREE THYROXINE) 1.45 ng/dL (0.78-2.19)
[2019-01-29 06:22] LABS: THYROID STIMULATING HORMONE 3.2 uIU/mL (0.47-4.68)
[2019-01-29] MEDS: BUDESONIDE NEB 0.5 MG/2 ML AMPUL NEB SCH ×2 (08:51→19:47)
[2019-01-29] MEDS ORDERED: INSULIN GLARGINE,HUM.REC.ANLOG 300 UNIT/3 ML INSULN.PEN SUBCUT SCH (10:00)
[2019-01-29] MEDS ORDERED: INSULIN GLARGINE,HUM.REC.ANLOG 1,000 UNIT/10 ML VIAL (PYX) SUBCUT SCH (10:00)
[2019-01-29] MEDS: METOPROLOL SUCCINATE 25 MG TAB.SR.24H PO SCH (10:51)
[2019-01-29] MEDS: CLOPIDOGREL BISULFATE 75 MG TABLET PO SCH (10:55)
[2019-01-29] MEDS: ISOSORBIDE MONONITRATE 60 MG TAB.ER.24H PO SCH (10:55)
[2019-01-29] MEDS: LOSARTAN POTASSIUM 25 MG TABLET PO SCH (10:55)
[2019-01-29] MEDS: LORATADINE 10 MG TABLET PO SCH (10:55)
[2019-01-29] MEDS: DOCUSATE SODIUM 100 MG CAPSULE PO SCH (10:55)
[2019-01-29] MEDS: FAMOTIDINE 20 MG TABLET PO SCH ×2 (10:55→21:38)
[2019-01-29 11:58] LABS: CREATINE KINASE MB 1.38 ng/mL (<4.55)
[2019-01-29 12:02] LABS: TROPONIN I < 0.012 ng/mL
[2019-01-29] MEDS: MORPHINE SULFATE 10 MG/ML INJ IV PRN ×2 (14:45→19:57)
[2019-01-29] MEDS: INSULIN GLARGINE,HUM.REC.ANLOG 1,000 UNIT/10 ML VIAL SUBCUT SCH (18:00)
[2019-01-29] MEDS: MONTELUKAST SODIUM 10 MG TABLET PO SCH (18:04)
--- NOTE | 2019-01-29 20:46 | XCELERA REPORT ---
[address] [address] Transthoracic Echocardiogram Report Name: PRECIOUS BURCH Age: 73 yrs Gender: Female : 1945 Patient Status: Inpatient Patient Location: [address] [place] [address] Study Date: 01/29/2019 03:20 PM Height: 59 in Weight: 223 lb BSA: 1.9 m2 Procedure: A two-dimensional transthoracic echocardiogram with color flow Doppler was performed. Study Quality: Poor. Poor endocarial visualisation. Reason For Study: progressive dyspnea known diastolic chf History: DYSPNEA AND DISTOLOIC CHF. Ordering Physician: WEI TAY Performed By: Nikhil Alston Interpretation Summary Poor endocarial visualisation. The left ventricle is grossly normal size. There is mild to moderate concentric left ventricular hypertrophy. LV EF is 65% The left ventricular ejection fraction is within normal limits. Doppler measurements suggest pseudonormalized left ventricular relaxation, which is associated with grade II/IV or mild to moderate diastolic dysfunction Probably no regional wall motion abnormality. The right ventricle is not well visualized secondary to technical limitations Right atrium not well visualized secondary to technical limitations The left atrium is moderately dilated. There is mild mitral annular calcification. There is no evidence of mitral valve prolapse. There is no vegetation seen on the mitral valve. There is no mitral valve stenosis. There is a mild amount of mitral regurgitation There is no aortic valvular vegetation. There is no aortic valve stenosis There is aortic sclerosis without aortic stenosis. There is no LVOT obstruction. There is a mild amount of aortic regurgitation There is no tricuspid stenosis. There is a mild amount of tricuspid regurgitation There is mild pulmonary hypertension by echo RVSp is 40 mm of Hg , with RA mean of 10. There is a trace amount of pulmonic regurgitation There is no pulmonic valvular stenosis. There is no pericardial effusion. MMode/2D Measurements & Calculations RVDd: 3.9 cm LVIDd: 4.8 cm FS: 35.1 % Ao root diam: 2.9 cm IVSd: 1.4 cm LVIDs: 3.1 cm EDV(Teich): 109.8 ml Ao root area: 6.8 cm2 LVPWd: 1.4 cm ESV(Teich): 39.3 ml LA dimension: 4.7 cm EF(Teich): 64.2 % Doppler Measurements & Calculations MV E max morteza: MV P1/2t max morteza: Ao V2 max: AI max morteza: 116.5 cm/sec 126.9 cm/sec 180.7 cm/sec 305.1 cm/sec MV A max morteza: MV P1/2t: 105.1 msec Ao max PG: AI max P.6 cm/sec MVA(P1/2t): 2.1 cm2 13.1 mmHg 38.8 mmHg MV E/A: 1.7 MV dec slope: AI dec slope: 90.2 cm/sec2 353.6 cm/sec2 AI P1/2t: MV dec time: 0.25 sec 991.2 msec LV V1 max PG: PA V2 max: PI end-d morteza: TR max morteza: 3.7 mmHg 94.3 cm/sec 67.9 cm/sec 273.4 cm/sec LV V1 max: PA max P.6 mmHg TR max P.3 cm/sec 29.9 mmHg AV P1/2t-pr_phl: MV P1/2t-pr_phl: 1081 msec 105.1 msec Left Ventricle The left ventricle is grossly normal size. There is mild to moderate concentric left ventricular hypertrophy. LV EF is 65%. The left ventricular ejection fraction is within normal limits. Doppler measurements suggest pseudonormalized left ventricular relaxation, which is associated with grade II/IV or mild to moderate diastolic dysfunction. Probably no regional wall motion abnormality. Right Ventricle The right ventricle is not well visualized secondary to technical limitations. Atria Right atrium not well visualized secondary to technical limitations. The left atrium is moderately dilated. Mitral Valve There is mild mitral annular calcification. There is no evidence of mitral valve prolapse. There is no vegetation seen on the mitral valve. There is no mitral valve stenosis. There is a mild amount of mitral regurgitation. Aortic Valve There is no aortic valvular vegetation. There is no aortic valve stenosis. There is aortic sclerosis without aortic stenosis. There is no LVOT obstruction. There is a mild amount of aortic regurgitation. Tricuspid Valve There is no tricuspid stenosis. There is a mild amount of tricuspid regurgitation. There is mild pulmonary hypertension by echo. RVSp is 40 mm of Hg , with RA mean of 10. Pulmonic Valve There is no pulmonic valvular stenosis. There is a trace amount of pulmonic regurgitation. Effusions There is no pericardial effusion. : WEI TAY Lakshmi
[2019-01-29] MEDS: ATORVASTATIN CALCIUM 80 MG TABLET PO SCH (21:38)
[2019-01-29] MEDS: DIPHENHYDRAMINE HCL 25 MG CAPSULE PO SCH (21:38)
--- NOTE | 2019-01-29 22:18 | PDOC PROGRESS REPORT ---
Subjective Progress Note for:: 01/29/19 Subjective:: Patient is a 73-year-old female CHF, CAD, hypertension presented to [facility] emergency department complaining shortness of breath. She was recently admitted to [facility] and stopped taking her lasix. The patient presented with diffuse anasarca and started on a scheduled lasix. The patient was seen this morning on rounds, she is resting in bed. is at the bedside. The patient endorses significant fatigue. She is asking for a Lyle because she is too weak to get up to the bedside commode. Faint crackles heard in the b/l bases. +2 pitting edema in the lower extremities, trace edema to the hips and L breast. This is an improvement compared to her initial assessment by the educational assistant teacher. Plan to continue scheduled lasix. Awaiting echocardiogram. Reason For Visit: ACUTE ON CHRONIC DIASTOLIC CONGESTIVE HEART Physical Exam Vital Signs: Temp Pulse Resp BP Pulse Ox 99.1 F 65 16 109/37 L 97 01/29/19 19:42 01/29/19 19:54 01/29/19 19:54 01/29/19 19:42 01/29/19 19:54 Intake & Output 01/28/19 01/29/19 01/30/19 06:59 06:59 06:59 Intake Total 674 Output Total 750 Balance -76 Weight 100.5 kg Results Laboratory Results: 01/29/19 04:46 01/28/19 19:06 01/29/19 01/29/19 01/29/19 04:46 04:46 04:46 WBC 6.0 RBC 2.74 L Hgb 8.3 L Hct 25.2 L MCV 92 MCH 30.4 MCHC 33.0 RDW 15.5 H Plt Count 133 L Seg Neutrophils % 59.5 Lymphocytes % 25.7 Monocytes % 9.1 Eosinophils % 5.3 Basophils % 0.4 Absolute Neutrophils 3.5 Absolute Lymphocytes 1.5 Absolute Monocytes 0.5 Absolute Eosinophils 0.3 Absolute Basophils 0.0 Magnesium 2.2 Triglycerides 170 H Cholesterol 74.44 LDL Cholesterol Direct 31 VLDL Cholesterol 34.0 H HDL Cholesterol 39 L TSH 3.20 Free T4 1.45 Free T3 pg/mL 3.68 01/28/19 01/28/19 01/28/19 19:06 19:06 22:15 Creatine Kinase 73 62 CK-MB (CK-2) 1.64 Troponin I < 0.012 NT-Pro-B Natriuret Pep 6080 H 01/28/19 01/29/19 01/29/19 22:15 04:46 04:46 Creatine Kinase 55 CK-MB (CK-2) 1.49 1.48 Troponin I 0.021 0.022 NT-Pro-B Natriuret Pep 01/29/19 01/29/19 10:40 10:40 Creatine Kinase 58 CK-MB (CK-2) 1.38 Troponin I < 0.012 NT-Pro-B Natriuret Pep Impressions: Chest X-Ray 01/28/19 17:45 IMPRESSION: Cardiomegaly with mild pulmonary edema. Assessment and Plan - Diagnosis (1) Acute on chronic diastolic (congestive) heart failure Is this a current diagnosis for this admission?: Yes Plan: Exacerbated by discontinuing lasix Continue scheduled lasix IV, will eventually transition back to PO ECHOcardiogram pending Serial cardiac enzymes negative, no longer trending EKG shows NSR - no ishemia or infarct. (2) Acute on chronic renal failure Qualifiers: Acute renal failure type: unspecified Chronic kidney disease stage: stage 3 (moderate) Qualified Code(s): N17.9 - Acute kidney failure, unspecified; N18.3 - Chronic kidney disease, stage 3 (moderate) Is this a current diagnosis for this admission?: Yes Plan: Creatinine 2.2 today Baseline has been climbing over the last year Patient is able to make urine Will monitor with daily chemistries No need for nephrology or dialysis at this time, suspect that renal function will improve as chf exacerbation is corrected (3) Acute respiratory failure with hypoxia Is this a current diagnosis for this admission?: Yes Plan: Secondary to CHF exacerbation stemming from lack of diuresis CXR shows cardiomegaly with pulmonary edema Initiate scheduled lasix supplemental O2 to maintain SPO2>92% (4) COPD (chronic obstructive pulmonary disease) Qualifiers: COPD type: unspecified COPD Qualified Code(s): J44.9 - Chronic obstructive pulmonary disease, unspecified Is this a current diagnosis for this admission?: Yes Plan: PRN and scheduled nebulizer treatments Xopenex and Atrovent q8h Pulmicort every 12 hours Remaining plan as above (5) Diabetes mellitus type 2 in obese Is this a current diagnosis for this admission?: Yes Plan: Accucheks ACHS Diabetic/cardiac diet Humdiane SSI (6) Morbid obesity with BMI of 45.0-49.9, adult Is this a current diagnosis for this admission?: Yes Plan: Patient will be seen in consultation by the dietitian for evaluation of her dietary needs and treating her multiple illnesses. Additional directions towards a diet that would aid in weight loss and lifestyle changes that may improve her overall health and well-being will be made. - Time Time Spent with patient: 15-24 minutes Medications reviewed and adjusted accordingly: Yes Anticipated discharge: Home - Inpatient Certification Based on my medical assessment, after consideration of the patient's comorbidities, presenting symptoms, or acuity I expect that the services needed warrant INPATIENT care.: Yes I certify that my determination is in accordance with my understanding of Medicare's requirements for reasonable and necessary INPATIENT services [42 CFR 412.3e].: Yes Medical Necessity: Risk of Complication if Not Cared For in Hospital - Plan Summary Plan Summary: CONTINUE DIURESIS. INSERT LYLE. IF SHE CONTINUES TO RESPOND, LIKELY D/C IN 48HRS
--- NOTE | 2019-01-29 22:48 | EKG REPORT ---
SEVERITY:- ABNORMAL ECG - SINUS RHYTHM NONSPECIFIC INTRAVENTRICULAR CONDUCTION DELAY LOW VOLTAGE THROUGHOUT BORDERLINE R WAVE PROGRESSION, ANTERIOR LEADS : Confirmed by: Mariano Rodríguez 29-Jan-2019 22:47:09
[2019-01-30] MEDS: IPRATROPIUM BROMIDE 0.02% NEB 0.5 MG/2.5 ML AMPUL NEB SCH ×3 (00:08→16:36)
[2019-01-30] MEDS: LEVALBUTEROL HCL NEB 1.25 MG/3 ML AMPUL NEB SCH ×3 (00:08→16:36)
[2019-01-30] MEDS: HEPARIN SOD (PORCINE) 5,000 UNIT/ML 1 ML SYRINGE SUBCUT SCH ×3 (05:11→21:22)
[2019-01-30 06:12] LABS: ABSOLUTE EOSINOPHILS # (AUTO) 0.3 10^3/uL (0.0-0.6); ABSOLUTE LYMPHOCYTES (AUTO) 1.4 10^3/uL (0.5-4.7); ABSOLUTE MONOCYTES (AUTO) 0.5 10^3/uL (0.1-1.4); ABSOLUTE NEUT (AUTO) 3.9 10^3/uL (1.7-8.2); BASOPHILS % (AUTO) 0.5 % (0-2); EOSINOPHILS % (AUTO) 4.6 % (0-6); HEMATOCRIT 25.5 % (36.0-47.0); HEMOGLOBIN 8.5 g/dL (12.0-15.5); LYMPHOCYTES % (AUTO) 22.9 % (13-45); MEAN CORPUSCULAR HEMOGLOBIN 30.5 pg (27.0-33.4); MEAN CORPUSCULAR HGB CONC 33.4 g/dL (32.0-36.0); MEAN CORPUSCULAR VOLUME 91 fl (80-97); MONOCYTES % (AUTO) 7.5 % (3-13); PLATELET COUNT 131 10^3/uL (150-450); RED CELL DISTRIBUTION WIDTH 15.3 % (11.5-14.0); SEGMENTED NEUTROPHILS % (AUTO) 64.5 % (42-78); TOTAL CELLS COUNTED % (AUTO) 100 %; WHITE BLOOD COUNT 6.1 10^3/uL (4.0-10.5)
[2019-01-30] MEDS: MORPHINE SULFATE 10 MG/ML INJ IV PRN ×2 (06:19→21:21)
[2019-01-30 07:08] LABS: ANION GAP 6 (5-19); BLOOD UREA NITROGEN 42 mg/dL (7-20); CALCIUM 8.1 mg/dL (8.4-10.2); CARBON DIOXIDE 24 mmol/L (22-30); CHLORIDE 107 mmol/L (98-107); GLUCOSE 101 mg/dL (75-110); POTASSIUM 5.3 mmol/L (3.6-5.0); SODIUM 137.4 mmol/L (137-145)
[2019-01-30] MEDS: BUDESONIDE NEB 0.5 MG/2 ML AMPUL NEB SCH ×2 (09:02→20:12)
[2019-01-30] MEDS: ISOSORBIDE MONONITRATE 60 MG TAB.ER.24H PO SCH (09:35)
[2019-01-30] MEDS: METOPROLOL SUCCINATE 25 MG TAB.SR.24H PO SCH (09:35)
[2019-01-30] MEDS: FUROSEMIDE INJ/PF 40 MG/4 ML SDV IV SCH ×2 (09:35→21:21)
[2019-01-30] MEDS: LORATADINE 10 MG TABLET PO SCH (09:35)
[2019-01-30] MEDS: LOSARTAN POTASSIUM 25 MG TABLET PO SCH (09:36)
[2019-01-30] MEDS: CLOPIDOGREL BISULFATE 75 MG TABLET PO SCH (09:36)
[2019-01-30] MEDS: FAMOTIDINE 20 MG TABLET PO SCH ×2 (09:37→21:22)
[2019-01-30] MEDS: DOCUSATE SODIUM 100 MG CAPSULE PO SCH (09:38)
[2019-01-30] MEDS: INSULIN GLARGINE,HUM.REC.ANLOG 1,000 UNIT/10 ML VIAL SUBCUT SCH ×2 (09:47→19:14)
[2019-01-30] MEDS: ONDANSETRON HCL INJ/PF 4 MG/2 ML SDV IV PRN (13:13)
[2019-01-30] MEDS ORDERED: CEFEPIME 2 GM/D5W RTU 2 GM/50 ML RTUPB IV SCH (13:30)
[2019-01-30] MEDS: CEFEPIME 1 GM/D5W RTU 1 GM/50 ML RTUPB IV SCH (14:24)
--- NOTE | 2019-01-30 17:37 | PDOC PROGRESS REPORT ---
Subjective Progress Note for:: 01/30/19 Subjective:: Patient is a 73-year-old female CHF, CAD, hypertension presented to [facility] emergency department complaining shortness of breath. She was recently admitted to [facility] and stopped taking her lasix. The patient presented with diffuse anasarca and started on a scheduled lasix. The patient was seen this morning on rounds, she is resting in bed. is at the bedside. The patient endorses improving weakness but is still unable to get OOB. Faint crackles heard in the R base. +2 pitting edema in the lower extremities, trace edema to the hips and L breast. Plan to continue scheduled lasix. PT/OT consult. Reason For Visit: ACUTE ON CHRONIC DIASTOLIC CONGESTIVE HEART Physical Exam Vital Signs: Temp Pulse Resp BP Pulse Ox 98.2 F 70 18 118/36 L 98 01/30/19 07:53 01/30/19 09:02 01/30/19 09:02 01/30/19 07:53 01/30/19 09:02 Intake & Output 01/29/19 01/30/19 01/31/19 06:59 06:59 06:59 Intake Total 1095 225 Output Total 1650 800 Balance -555 -575 Weight 100.5 kg 101.3 kg Results Laboratory Results: 01/30/19 05:19 01/30/19 05:19 01/30/19 01/30/19 05:19 05:19 WBC 6.1 RBC 2.80 L Hgb 8.5 L Hct 25.5 L MCV 91 MCH 30.5 MCHC 33.4 RDW 15.3 H Plt Count 131 L Seg Neutrophils % 64.5 Lymphocytes % 22.9 Monocytes % 7.5 Eosinophils % 4.6 Basophils % 0.5 Absolute Neutrophils 3.9 Absolute Lymphocytes 1.4 Absolute Monocytes 0.5 Absolute Eosinophils 0.3 Absolute Basophils 0.0 Sodium 137.4 Potassium 5.3 H Chloride 107 Carbon Dioxide 24 Anion Gap 6 BUN 42 H Creatinine 2.80 H Est GFR ( Amer) 20 L Est GFR (Non-Af Amer) 17 L Glucose 101 Calcium 8.1 L Magnesium 2.1 01/28/19 01/28/19 01/28/19 19:06 19:06 22:15 Creatine Kinase 73 62 CK-MB (CK-2) 1.64 Troponin I < 0.012 NT-Pro-B Natriuret Pep 6080 H 01/28/19 01/29/19 01/29/19 22:15 04:46 04:46 Creatine Kinase 55 CK-MB (CK-2) 1.49 1.48 Troponin I 0.021 0.022 NT-Pro-B Natriuret Pep 01/29/19 01/29/19 01/30/19 10:40 10:40 05:19 Creatine Kinase 58 CK-MB (CK-2) 1.38 Troponin I < 0.012 NT-Pro-B Natriuret Pep 4260 H Impressions: Chest X-Ray 01/28/19 17:45 IMPRESSION: Cardiomegaly with mild pulmonary edema. Assessment and Plan - Diagnosis (1) Acute on chronic diastolic (congestive) heart failure Is this a current diagnosis for this admission?: Yes Plan: Exacerbated by discontinuing lasix Continue scheduled lasix IV, will eventually transition back to PO ECHOcardiogram demonstrates LVEF 65%, mild to moderate LVH Serial cardiac enzymes negative, no longer trending EKG shows NSR - no ischemia or infarct. (2) Acute on chronic renal failure Qualifiers: Acute renal failure type: unspecified Chronic kidney disease stage: stage 3 (moderate) Qualified Code(s): N17.9 - Acute kidney failure, unspecified; N18.3 - Chronic kidney disease, stage 3 (moderate) Is this a current diagnosis for this admission?: Yes Plan: Worsening today Creatinine 2.2-->2.8 today Baseline has been climbing over the last year Patient is able to make urine Monitor with daily chemistries Consulted nephrology, Dr. Steinberg stated there was not much to do for the patient's renal failure. As expected, once heart failure improves, so will kidney function. (3) Acute respiratory failure with hypoxia Is this a current diagnosis for this admission?: Yes Plan: Secondary to CHF exacerbation stemming from lack of diuresis CXR shows cardiomegaly with pulmonary edema Continue scheduled lasix supplemental O2 to maintain SPO2>92% PRN nebulizer treatments (4) COPD (chronic obstructive pulmonary disease) Qualifiers: COPD type: unspecified COPD Qualified Code(s): J44.9 - Chronic obstructive pulmonary disease, unspecified Is this a current diagnosis for this admission?: Yes Plan: PRN and scheduled nebulizer treatments Xopenex and Atrovent q8h Pulmicort every 12 hours Remaining plan as above (5) Diabetes mellitus type 2 in obese Is this a current diagnosis for this admission?: Yes Plan: Acconeal OCAMPO Diabetic/cardiac diet Humalog SSI (6) Morbid obesity with BMI of 45.0-49.9, adult Is this a current diagnosis for this admission?: Yes Plan: Patient will be seen in consultation by the dietitian for evaluation of her dietary needs and treating her multiple illnesses. Additional directions towards a diet that would aid in weight loss and lifestyle changes that may improve her overall health and well-being will be made. (7) Urinary tract infection Qualifiers: Urinary tract infection type: acute cystitis Hematuria presence: without hematuria Qualified Code(s): N30.00 - Acute cystitis without hematuria Is this a current diagnosis for this admission?: Yes Plan: Urinalysis indicative of UTI Patient has a history of frequent UTIs, E. coli is commonly the culprit Resistance to multiple antibiotics Initiate renal dose cefepime Urine cultures pending (8) Debility Is this a current diagnosis for this admission?: Yes Plan: Patient has not been very mobile in the last few weeks leading up to her hospitalization While inpatient, she has not gotten out of bed, the patient states she is too weak She is normally ambulatory (for short distances) at home Plan to initiate PT OT - Time Time Spent with patient: 15-24 minutes Medications reviewed and adjusted accordingly: Yes Anticipated discharge: Home - Inpatient Certification Based on my medical assessment, after consideration of the patient's comorbidities, presenting symptoms, or acuity I expect that the services needed warrant INPATIENT care.: Yes I certify that my determination is in accordance with my understanding of Medicare's requirements for reasonable and necessary INPATIENT services [42 CFR 412.3e].: Yes Medical Necessity: Need For Continuous Telemetry Monitoring, Need for IV Antibiotics, Risk of Complication if Not Cared For in Hospital
[2019-01-30] MEDS: MONTELUKAST SODIUM 10 MG TABLET PO SCH (19:14)
[2019-01-30] MEDS: INSULIN REG, HUMAN 100 UNIT/ML 3 ML VIAL (PYX) SUBCUT PRN (21:19)
[2019-01-30] MEDS: DIPHENHYDRAMINE HCL 25 MG CAPSULE PO SCH (21:22)
[2019-01-30] MEDS: ATORVASTATIN CALCIUM 80 MG TABLET PO SCH (21:22)
[2019-01-31] MEDS: IPRATROPIUM BROMIDE 0.02% NEB 0.5 MG/2.5 ML AMPUL NEB SCH ×3 (00:27→15:59)
[2019-01-31] MEDS: LEVALBUTEROL HCL NEB 1.25 MG/3 ML AMPUL NEB SCH ×3 (00:27→15:59)
[2019-01-31] MEDS: MORPHINE SULFATE 10 MG/ML INJ IV PRN ×4 (00:34→23:24)
[2019-01-31] MEDS: HEPARIN SOD (PORCINE) 5,000 UNIT/ML 1 ML SYRINGE SUBCUT SCH ×3 (05:05→21:34)
[2019-01-31 05:44] LABS: ABSOLUTE EOSINOPHILS # (AUTO) 0.3 10^3/uL (0.0-0.6); ABSOLUTE LYMPHOCYTES (AUTO) 1.3 10^3/uL (0.5-4.7); ABSOLUTE MONOCYTES (AUTO) 0.6 10^3/uL (0.1-1.4); ABSOLUTE NEUT (AUTO) 4.1 10^3/uL (1.7-8.2); BASOPHILS % (AUTO) 0.4 % (0-2); EOSINOPHILS % (AUTO) 5.1 % (0-6); HEMATOCRIT 24.4 % (36.0-47.0); HEMOGLOBIN 8.2 g/dL (12.0-15.5); LYMPHOCYTES % (AUTO) 20.6 % (13-45); MEAN CORPUSCULAR HEMOGLOBIN 30.6 pg (27.0-33.4); MEAN CORPUSCULAR HGB CONC 33.4 g/dL (32.0-36.0); MEAN CORPUSCULAR VOLUME 92 fl (80-97); MONOCYTES % (AUTO) 9.8 % (3-13); PLATELET COUNT 124 10^3/uL (150-450); RED BLOOD COUNT 2.66 10^6/uL (3.72-5.28); SEGMENTED NEUTROPHILS % (AUTO) 64.1 % (42-78); TOTAL CELLS COUNTED % (AUTO) 100 %; WHITE BLOOD COUNT 6.4 10^3/uL (4.0-10.5)
[2019-01-31 06:04] LABS: ANION GAP 8 (5-19); BLOOD UREA NITROGEN 49 mg/dL (7-20); CALCIUM 8.3 mg/dL (8.4-10.2); CARBON DIOXIDE 25 mmol/L (22-30); CHLORIDE 103 mmol/L (98-107); GLUCOSE 79 mg/dL (75-110)
[2019-01-31] MEDS: BUDESONIDE NEB 0.5 MG/2 ML AMPUL NEB SCH ×2 (08:19→20:09)
[2019-01-31] MEDS: FAMOTIDINE 20 MG TABLET PO SCH ×2 (09:46→21:37)
[2019-01-31] MEDS: FUROSEMIDE INJ/PF 40 MG/4 ML SDV IV SCH ×2 (09:46→21:37)
[2019-01-31] MEDS: LORATADINE 10 MG TABLET PO SCH (09:46)
[2019-01-31] MEDS: LOSARTAN POTASSIUM 25 MG TABLET PO SCH (09:46)
[2019-01-31] MEDS: ISOSORBIDE MONONITRATE 60 MG TAB.ER.24H PO SCH (09:46)
[2019-01-31] MEDS: CLOPIDOGREL BISULFATE 75 MG TABLET PO SCH (09:46)
[2019-01-31] MEDS: DOCUSATE SODIUM 100 MG CAPSULE PO SCH (09:46)
[2019-01-31] MEDS: METOPROLOL SUCCINATE 25 MG TAB.SR.24H PO SCH (09:47)
[2019-01-31] MEDS: INSULIN GLARGINE,HUM.REC.ANLOG 1,000 UNIT/10 ML VIAL SUBCUT SCH ×2 (09:59→18:47)
[2019-01-31] MEDS: CEFEPIME 1 GM/D5W RTU 1 GM/50 ML RTUPB IV SCH (12:26)
[2019-01-31] MEDS: ONDANSETRON HCL INJ/PF 4 MG/2 ML SDV IV PRN (17:38)
[2019-01-31] MEDS: MONTELUKAST SODIUM 10 MG TABLET PO SCH (18:47)
--- NOTE | 2019-01-31 20:29 | PDOC PROGRESS REPORT ---
Subjective Progress Note for:: 01/31/19 Subjective:: Patient is a 73-year-old female CHF, CAD, hypertension presented to [facility] emergency department complaining shortness of breath. She was recently admitted to [facility] and stopped taking her lasix. The patient presented with diffuse anasarca and started on a scheduled lasix. The patient was seen this morning on rounds, she is resting in bed. The patient endorses improving weakness, was able to get OOB and ambulate 20ft with PT yesterday. LCTA. +1 pitting edema in the lower extremities, trace edema to the hips and L breast. Plan to continue scheduled lasix. PT/OT. Antibiotics for UTI. Reason For Visit: ACUTE ON CHRONIC DIASTOLIC CONGESTIVE HEART Physical Exam Vital Signs: Temp Pulse Resp BP Pulse Ox 98.1 F 76 15 130/39 H 96 01/31/19 17:46 01/31/19 20:10 01/31/19 20:10 01/31/19 17:46 01/31/19 20:10 Intake & Output 01/30/19 01/31/19 02/01/19 06:59 06:59 06:59 Intake Total 1095 1741 750 Output Total 1650 2900 2300 Balance -951 -5762 -1550 Weight 101.3 kg 98.8 kg General appearance: PRESENT: morbidly obese Eye exam: PRESENT: PERRLA Mouth exam: PRESENT: moist, tongue midline Neck exam: PRESENT: full ROM. ABSENT: JVD Respiratory exam: PRESENT: clear to auscultation cheli, symmetrical, unlabored Cardiovascular exam: PRESENT: RRR Pulses: PRESENT: normal radial pulses, +1 pedal pulses bilateral Vascular exam: PRESENT: normal capillary refill GI/Abdominal exam: PRESENT: soft. ABSENT: distended, tenderness Rectal exam: PRESENT: deferred Gentrourinary exam: PRESENT: indwelling catheter Extremities exam: PRESENT: full ROM, pedal edema, +1 edema Musculoskeletal exam: PRESENT: ambulatory, full ROM Neurological exam: PRESENT: alert, awake, oriented to person, oriented to place, oriented to time, oriented to situation Psychiatric exam: PRESENT: appropriate affect Skin exam: PRESENT: dry, intact, pallor Results Laboratory Results: 01/31/19 04:38 01/31/19 04:38 01/31/19 01/31/19 04:38 04:38 WBC 6.4 RBC 2.66 L Hgb 8.2 L Hct 24.4 L MCV 92 MCH 30.6 MCHC 33.4 RDW 15.0 H Plt Count 124 L Seg Neutrophils % 64.1 Lymphocytes % 20.6 Monocytes % 9.8 Eosinophils % 5.1 Basophils % 0.4 Absolute Neutrophils 4.1 Absolute Lymphocytes 1.3 Absolute Monocytes 0.6 Absolute Eosinophils 0.3 Absolute Basophils 0.0 Sodium 136.0 L Potassium 5.0 Chloride 103 Carbon Dioxide 25 Anion Gap 8 BUN 49 H Creatinine 2.64 H Est GFR ( Amer) 22 L Est GFR (Non-Af Amer) 18 L Glucose 79 Calcium 8.3 L Magnesium 2.1 01/28/19 19:06 Clean Catch Midstream Urine Culture - Final Proteus Mirabilis Escherichia Coli 01/28/19 01/28/19 01/28/19 19:06 19:06 22:15 Creatine Kinase 73 62 CK-MB (CK-2) 1.64 Troponin I < 0.012 NT-Pro-B Natriuret Pep 6080 H 01/28/19 01/29/19 01/29/19 22:15 04:46 04:46 Creatine Kinase 55 CK-MB (CK-2) 1.49 1.48 Troponin I 0.021 0.022 NT-Pro-B Natriuret Pep 01/29/19 01/29/19 01/30/19 10:40 10:40 05:19 Creatine Kinase 58 CK-MB (CK-2) 1.38 Troponin I < 0.012 NT-Pro-B Natriuret Pep 4260 H 01/31/19 04:38 Creatine Kinase CK-MB (CK-2) Troponin I NT-Pro-B Natriuret Pep 4670 H Impressions: Chest X-Ray 01/28/19 17:45 IMPRESSION: Cardiomegaly with mild pulmonary edema. Status: Imported from PACS Assessment and Plan - Diagnosis (1) Acute on chronic diastolic (congestive) heart failure Is this a current diagnosis for this admission?: Yes Plan: Exacerbated by discontinuing lasix Continue scheduled lasix IV, will eventually transition back to PO ECHOcardiogram demonstrates LVEF 65%, mild to moderate LVH Serial cardiac enzymes negative, no longer trending EKG shows NSR - no ischemia or infarct. Check BNP in AM (2) Acute on chronic renal failure Qualifiers: Acute renal failure type: unspecified Chronic kidney disease stage: stage 3 (moderate) Qualified Code(s): N17.9 - Acute kidney failure, unspecified; N18.3 - Chronic kidney disease, stage 3 (moderate) Is this a current diagnosis for this admission?: Yes Plan: Slight improvement today Creatinine 2.2-->2.8-->2.6 today Baseline has been climbing over the last year Patient is able to make urine Monitor with daily chemistries Consulted nephrology, Dr. Steinberg stated there was not much to do for the patient's renal failure. No dialysis indicated at this time. (3) Acute respiratory failure with hypoxia Is this a current diagnosis for this admission?: Yes Plan: Secondary to CHF exacerbation stemming from lack of diuresis CXR shows cardiomegaly with pulmonary edema Continue scheduled lasix supplemental O2 to maintain SPO2>92% PRN nebulizer treatments (4) COPD (chronic obstructive pulmonary disease) Qualifiers: COPD type: unspecified COPD Qualified Code(s): J44.9 - Chronic obstructive pulmonary disease, unspecified Is this a current diagnosis for this admission?: Yes Plan: PRN and scheduled nebulizer treatments Xopenex and Atrovent q8h Pulmicort every 12 hours Remaining plan as above (5) Diabetes mellitus type 2 in obese Is this a current diagnosis for this admission?: Yes Plan: Accucheks VIRIS Diabetic/cardiac diet Humalog SSI (6) Morbid obesity with BMI of 45.0-49.9, adult Is this a current diagnosis for this admission?: Yes Plan: Patient will be seen in consultation by the dietitian for evaluation of her dietary needs and treating her multiple illnesses. Additional directions towards a diet that would aid in weight loss and lifestyle changes that may improve her overall health and well-being will be made. (7) Urinary tract infection Qualifiers: Urinary tract infection type: acute cystitis Hematuria presence: without hematuria Qualified Code(s): N30.00 - Acute cystitis without hematuria Is this a current diagnosis for this admission?: Yes Plan: Urinalysis indicative of UTI Patient has a history of frequent UTIs, E. coli is commonly the culprit Resistance to multiple antibiotics Initiate renal dose cefepime Urine cultures pending (8) Debility Is this a current diagnosis for this admission?: Yes Plan: Improving Able to walk 20ft with PT yesterday Only 1 person min. assist Safe to ambulate with family/staff - Time Time Spent with patient: 15-24 minutes Medications reviewed and adjusted accordingly: Yes Anticipated discharge: Home with Homehealth Within: within 24 hours - Inpatient Certification Based on my medical assessment, after consideration of the patient's comorbidities, presenting symptoms, or acuity I expect that the services needed warrant INPATIENT care.: Yes I certify that my determination is in accordance with my understanding of Medicare's requirements for reasonable and necessary INPATIENT services [42 CFR 412.3e].: Yes Medical Necessity: Need Close Monitoring Due to Risk of Patient Decompensation, Risk of Complication if Not Cared For in Hospital
[2019-01-31] MEDS: ATORVASTATIN CALCIUM 80 MG TABLET PO SCH (21:37)
[2019-01-31] MEDS: DIPHENHYDRAMINE HCL 25 MG CAPSULE PO SCH (21:37)
[2019-02-01] MEDS: LEVALBUTEROL HCL NEB 1.25 MG/3 ML AMPUL NEB SCH ×3 (00:23→15:56)
[2019-02-01] MEDS: IPRATROPIUM BROMIDE 0.02% NEB 0.5 MG/2.5 ML AMPUL NEB SCH ×3 (00:23→15:56)
[2019-02-01 04:50] LABS: HEMATOCRIT 25.5 % (36.0-47.0); HEMOGLOBIN 8.5 g/dL (12.0-15.5); MEAN CORPUSCULAR HEMOGLOBIN 30.5 pg (27.0-33.4); MEAN CORPUSCULAR HGB CONC 33.3 g/dL (32.0-36.0); MEAN CORPUSCULAR VOLUME 92 fl (80-97); PLATELET COUNT 126 10^3/uL (150-450); RED BLOOD COUNT 2.79 10^6/uL (3.72-5.28); RED CELL DISTRIBUTION WIDTH 14.9 % (11.5-14.0); WHITE BLOOD COUNT 6.8 10^3/uL (4.0-10.5)
[2019-02-01 05:16] LABS: ANION GAP 10 (5-19); BLOOD UREA NITROGEN 47 mg/dL (7-20); CALCIUM 8.6 mg/dL (8.4-10.2); CARBON DIOXIDE 27 mmol/L (22-30); CHLORIDE 100 mmol/L (98-107); GLUCOSE 95 mg/dL (75-110); POTASSIUM 4.6 mmol/L (3.6-5.0); SODIUM 136.9 mmol/L (137-145)
[2019-02-01] MEDS: HEPARIN SOD (PORCINE) 5,000 UNIT/ML 1 ML SYRINGE SUBCUT SCH ×3 (05:19→21:28)
[2019-02-01] MEDS: MORPHINE SULFATE 10 MG/ML INJ IV PRN (05:38)
[2019-02-01] MEDS: BUDESONIDE NEB 0.5 MG/2 ML AMPUL NEB SCH ×2 (08:34→19:34)
[2019-02-01] MEDS: ISOSORBIDE MONONITRATE 60 MG TAB.ER.24H PO SCH (09:55)
[2019-02-01] MEDS: FUROSEMIDE INJ/PF 40 MG/4 ML SDV IV SCH (09:55)
[2019-02-01] MEDS: METOPROLOL SUCCINATE 25 MG TAB.SR.24H PO SCH (09:55)
[2019-02-01] MEDS: DOCUSATE SODIUM 100 MG CAPSULE PO SCH (09:55)
[2019-02-01] MEDS: CLOPIDOGREL BISULFATE 75 MG TABLET PO SCH (09:56)
[2019-02-01] MEDS: LORATADINE 10 MG TABLET PO SCH (09:56)
[2019-02-01] MEDS: LOSARTAN POTASSIUM 25 MG TABLET PO SCH (09:56)
[2019-02-01] MEDS ORDERED: OXYCODONE-ACETAMINOPHEN 5-325 MG TABLET PO PRN ×2 (10:00→10:01)
[2019-02-01] MEDS: FAMOTIDINE 20 MG TABLET PO SCH ×2 (10:01→21:29)
[2019-02-01] MEDS: INSULIN GLARGINE,HUM.REC.ANLOG 1,000 UNIT/10 ML VIAL SUBCUT SCH ×2 (10:02→17:49)
[2019-02-01] MEDS: CEFEPIME 1 GM/D5W RTU 1 GM/50 ML RTUPB IV SCH (12:02)
--- NOTE | 2019-02-01 14:02 | PDOC PROGRESS REPORT ---
Subjective Progress Note for:: 02/01/19 Subjective:: Patient is a 73-year-old female CHF, CAD, hypertension presented to [facility] emergency department complaining shortness of breath. She was recently admitted to [facility] and stopped taking her lasix. The patient presented with diffuse anasarca and started on a scheduled lasix. The patient was seen this morning on rounds, she is resting in bed. LCTA. +1 pitting edema in the lower extremities, trace edema to the hips and L breast. Nursing staff expressed concerns about over medicating with morphine. The patient has been requesting education every few hours for vague, generalized pain. Upon assessment the patient states she has pain at her IV site. Explained to patient this is not an indication for IV morphine. IV site is clean, dry and intact. There is no erythema or signs of infiltration. Plan to discontinue as needed morphine and replaced with home dose Percocet. Nursing staff may apply heating pad to IV site or place new IV. Urine cultures and sensitivities resulted, (+) Proteus and E. coli, resistant to multiple antibiotics. May discontinue cefepime today and initiate Augmentin. Reason For Visit: ACUTE ON CHRONIC DIASTOLIC CONGESTIVE HEART Physical Exam Vital Signs: Temp Pulse Resp BP Pulse Ox 98.9 F 68 18 149/59 H 90 L 02/01/19 10:47 02/01/19 13:39 02/01/19 10:47 02/01/19 10:47 02/01/19 10:47 Intake & Output 01/31/19 02/01/19 02/02/19 06:59 06:59 06:59 Intake Total 1741 750 350 Output Total 2900 4450 350 Balance -1159 -3700 0 Weight 98.8 kg 95.6 kg General appearance: PRESENT: obese, well-developed, well-nourished Head exam: PRESENT: atraumatic Eye exam: PRESENT: conjunctiva pink, PERRLA Mouth exam: PRESENT: moist, tongue midline Neck exam: PRESENT: full ROM Respiratory exam: PRESENT: clear to auscultation cheli, symmetrical, unlabored Cardiovascular exam: PRESENT: RRR Pulses: PRESENT: normal radial pulses, normal dorsalis pedis pul Vascular exam: PRESENT: pallor GI/Abdominal exam: PRESENT: normal bowel sounds, soft. ABSENT: distended, tenderness Rectal exam: PRESENT: deferred Gentrourinary exam: PRESENT: indwelling catheter Extremities exam: PRESENT: full ROM, pedal edema, +1 edema Musculoskeletal exam: PRESENT: ambulatory - 1 person minimal assist, full ROM Neurological exam: PRESENT: alert, awake, oriented to person, oriented to place, oriented to time, oriented to situation Psychiatric exam: PRESENT: appropriate affect Skin exam: PRESENT: dry, intact, pallor Results Laboratory Results: 02/01/19 04:05 02/01/19 04:05 02/01/19 02/01/19 04:05 04:05 WBC 6.8 RBC 2.79 L Hgb 8.5 L Hct 25.5 L MCV 92 MCH 30.5 MCHC 33.3 RDW 14.9 H Plt Count 126 L Sodium 136.9 L Potassium 4.6 Chloride 100 Carbon Dioxide 27 Anion Gap 10 BUN 47 H Creatinine 2.47 H Est GFR ( Amer) 23 L Est GFR (Non-Af Amer) 19 L Glucose 95 Calcium 8.6 01/28/19 19:06 Clean Catch Midstream Urine Culture - Final Proteus Mirabilis Escherichia Coli 01/28/19 01/28/19 01/28/19 19:06 19:06 22:15 Creatine Kinase 73 62 CK-MB (CK-2) 1.64 Troponin I < 0.012 NT-Pro-B Natriuret Pep 6080 H 01/28/19 01/29/19 01/29/19 22:15 04:46 04:46 Creatine Kinase 55 CK-MB (CK-2) 1.49 1.48 Troponin I 0.021 0.022 NT-Pro-B Natriuret Pep 01/29/19 01/29/19 01/30/19 10:40 10:40 05:19 Creatine Kinase 58 CK-MB (CK-2) 1.38 Troponin I < 0.012 NT-Pro-B Natriuret Pep 4260 H 01/31/19 02/01/19 04:38 04:05 Creatine Kinase CK-MB (CK-2) Troponin I NT-Pro-B Natriuret Pep 4670 H 4420 H Impressions: Chest X-Ray 01/28/19 17:45 IMPRESSION: Cardiomegaly with mild pulmonary edema. Status: Imported from PACS Assessment and Plan - Diagnosis (1) Acute on chronic diastolic (congestive) heart failure Is this a current diagnosis for this admission?: Yes Plan: Improved As a result of d/c lasix BNP improved 6080-->4420 ECHOcardiogram demonstrates LVEF 65%, mild to moderate LVH EKG shows NSR - no ischemia or infarct. Continue scheduled lasix, will transition from IV to PO today Serial cardiac enzymes negative, no longer trending (2) Acute on chronic renal failure Qualifiers: Acute renal failure type: unspecified Chronic kidney disease stage: stage 3 (moderate) Qualified Code(s): N17.9 - Acute kidney failure, unspecified; N18.3 - Chronic kidney disease, stage 3 (moderate) Is this a current diagnosis for this admission?: Yes Plan: Slight improvement today Creatinine 2.2-->2.8-->2.6-->2.47 today Baseline has been climbing over the last year Patient is able to make urine Monitor with daily chemistries Consulted nephrology, Dr. Steinberg stated there was not much to do for the patient's renal failure. No dialysis indicated at this time. (3) Acute respiratory failure with hypoxia Is this a current diagnosis for this admission?: Yes Plan: Secondary to CHF exacerbation stemming from lack of diuresis Initial CXR shows cardiomegaly with pulmonary edema Continue scheduled lasix supplemental O2 to maintain SPO2>92% PRN nebulizer treatments Discontinue IV Lasix, transition to home dose p.o. Lasix 40 mg twice daily (4) COPD (chronic obstructive pulmonary disease) Qualifiers: COPD type: unspecified COPD Qualified Code(s): J44.9 - Chronic obstructive pulmonary disease, unspecified Is this a current diagnosis for this admission?: Yes Plan: PRN and scheduled nebulizer treatments Xopenex and Atrovent q8h Pulmicort every 12 hours Remaining plan as above (5) Diabetes mellitus type 2 in obese Is this a current diagnosis for this admission?: Yes Plan: Accucheks ACHS Diabetic/cardiac diet Humalog SSI (6) Morbid obesity with BMI of 45.0-49.9, adult Is this a current diagnosis for this admission?: Yes Plan: Patient will be seen in consultation by the dietitian for evaluation of her dietary needs and treating her multiple illnesses. Additional directions towards a diet that would aid in weight loss and lifestyle changes that may i mprove her overall health and well-being will be made. (7) Urinary tract infection Qualifiers: Urinary tract infection type: acute cystitis Hematuria presence: without hematuria Qualified Code(s): N30.00 - Acute cystitis without hematuria Is this a current diagnosis for this admission?: Yes Plan: Urinalysis indicative of UTI Urine cultures positive for Proteus and E. coli Resistant to multiple antibiotics Discontinue cefepime, initiate Augmentin (8) Debility Is this a current diagnosis for this admission?: Yes Plan: Improving Able to walk 20ft with PT Only 1 person min. assist Safe to ambulate with family/staff Will need home health & PT upon discharge - Time Time Spent with patient: 15-24 minutes Medications reviewed and adjusted accordingly: Yes Anticipated discharge: Home - Inpatient Certification Based on my medical assessment, after consideration of the patient's comorbidities, presenting symptoms, or acuity I expect that the services needed warrant INPATIENT care.: Yes I certify that my determination is in accordance with my understanding of Medicare's requirements for reasonable and necessary INPATIENT services [42 CFR 412.3e].: Yes Medical Necessity: Need For Continuous Telemetry Monitoring, Risk of Complication if Not Cared For in Hospital
[2019-02-01] MEDS: MONTELUKAST SODIUM 10 MG TABLET PO SCH (17:48)
[2019-02-01] MEDS: FUROSEMIDE 40 MG TABLET PO SCH (17:49)
[2019-02-01] MEDS: ATORVASTATIN CALCIUM 80 MG TABLET PO SCH (21:29)
[2019-02-01] MEDS: DIPHENHYDRAMINE HCL 25 MG CAPSULE PO SCH (21:29)
[2019-02-01] MEDS: INSULIN REG, HUMAN 100 UNIT/ML 3 ML VIAL (PYX) SUBCUT PRN (22:06)
[2019-02-02] MEDS: LEVALBUTEROL HCL NEB 1.25 MG/3 ML AMPUL NEB SCH ×3 (00:14→15:59)
[2019-02-02] MEDS: IPRATROPIUM BROMIDE 0.02% NEB 0.5 MG/2.5 ML AMPUL NEB SCH ×3 (00:14→15:59)
[2019-02-02] MEDS: HEPARIN SOD (PORCINE) 5,000 UNIT/ML 1 ML SYRINGE SUBCUT SCH ×3 (05:54→21:09)
[2019-02-02] MEDS: BUDESONIDE NEB 0.5 MG/2 ML AMPUL NEB SCH ×2 (08:55→20:02)
[2019-02-02] MEDS: INSULIN GLARGINE,HUM.REC.ANLOG 1,000 UNIT/10 ML VIAL SUBCUT SCH ×2 (10:48→17:19)
[2019-02-02] MEDS: CLOPIDOGREL BISULFATE 75 MG TABLET PO SCH (10:52)
[2019-02-02] MEDS: DOCUSATE SODIUM 100 MG CAPSULE PO SCH (10:52)
[2019-02-02] MEDS: LORATADINE 10 MG TABLET PO SCH (10:52)
[2019-02-02] MEDS: FUROSEMIDE 40 MG TABLET PO SCH ×2 (10:52→17:32)
[2019-02-02] MEDS: FAMOTIDINE 20 MG TABLET PO SCH (10:52)
[2019-02-02] MEDS: ISOSORBIDE MONONITRATE 60 MG TAB.ER.24H PO SCH (10:53)
[2019-02-02] MEDS: METOPROLOL SUCCINATE 25 MG TAB.SR.24H PO SCH (10:53)
[2019-02-02] MEDS: LOSARTAN POTASSIUM 25 MG TABLET PO SCH (10:53)
[2019-02-02] MEDS: CEFEPIME 1 GM/D5W RTU 1 GM/50 ML RTUPB IV SCH (12:29)
[2019-02-02] MEDS ORDERED: TRAMADOL HCL 50 MG TABLET PO PRN (13:54)
--- NOTE | 2019-02-02 14:00 | PDOC PROGRESS REPORT ---
Subjective Progress Note for:: 02/02/19 Subjective:: Patient is a 73-year-old female CHF, CAD, hypertension presented to [facility] emergency department complaining shortness of breath. She was recently admitted to [facility] and stopped taking her lasix. The patient presented with diffuse anasarca and started on a scheduled lasix. The patient was seen this morning on rounds, she is sitting up in bed eating lunch. The patient states that she is too weak to go home, requesting to stay in the hospital for 1 more day. LCTA. +1 pitting edema in the lower extremities, trace edema to the hips. D/c'd IV morphine yesterday and switched to PO percocet. The patient has been requesting medication every few hours for vague, generalized pain. I am concerned she is overmedicated on PO narcotics. Will switch percocet to Tramadol. The patient has been unable to wean from supplemental oxygen, she does not wear oxygen at home. Asked nursing staff to assess for need for home O2. Urine cultures and sensitivities resulted, (+) Proteus and E. coli, resistant to multiple antibiotics. Discontinued cefepime today and initiated Cefuroxime. Reason For Visit: ACUTE ON CHRONIC DIASTOLIC CONGESTIVE HEART Physical Exam Vital Signs: Temp Pulse Resp BP Pulse Ox 98.0 F 78 16 131/47 H 93 02/01/19 23:32 02/02/19 08:58 02/02/19 08:58 02/01/19 23:32 02/02/19 08:58 Intake & Output 02/01/19 02/02/19 02/03/19 06:59 06:59 06:59 Intake Total 750 937 Output Total 4450 1900 Balance -3700 -963 Weight 95.6 kg 93.7 kg General appearance: PRESENT: morbidly obese Eye exam: PRESENT: conjunctiva pink, PERRLA Mouth exam: PRESENT: moist, tongue midline Teeth exam: PRESENT: poor dentation Neck exam: PRESENT: full ROM Respiratory exam: PRESENT: clear to auscultation cheli, symmetrical, unlabored Cardiovascular exam: PRESENT: RRR Pulses: PRESENT: normal radial pulses, normal dorsalis pedis pul Vascular exam: PRESENT: pallor GI/Abdominal exam: PRESENT: soft. ABSENT: distended, tenderness Rectal exam: PRESENT: deferred Extremities exam: PRESENT: full ROM, pedal edema, +1 edema Musculoskeletal exam: PRESENT: ambulatory - with walker, full ROM Neurological exam: PRESENT: alert, awake, oriented to person, oriented to place, oriented to time, oriented to situation Psychiatric exam: PRESENT: appropriate affect Skin exam: PRESENT: dry, intact, pallor Results Laboratory Results: 02/01/19 04:05 02/01/19 04:05 01/28/19 01/28/19 01/28/19 19:06 19:06 22:15 Creatine Kinase 73 62 CK-MB (CK-2) 1.64 Troponin I < 0.012 NT-Pro-B Natriuret Pep 6080 H 01/28/19 01/29/19 01/29/19 22:15 04:46 04:46 Creatine Kinase 55 CK-MB (CK-2) 1.49 1.48 Troponin I 0.021 0.022 NT-Pro-B Natriuret Pep 01/29/19 01/29/19 01/30/19 10:40 10:40 05:19 Creatine Kinase 58 CK-MB (CK-2) 1.38 Troponin I < 0.012 NT-Pro-B Natriuret Pep 4260 H 01/31/19 02/01/19 04:38 04:05 Creatine Kinase CK-MB (CK-2) Troponin I NT-Pro-B Natriuret Pep 4670 H 4420 H Impressions: Chest X-Ray 01/28/19 17:45 IMPRESSION: Cardiomegaly with mild pulmonary edema. Status: Imported from PACS Assessment and Plan - Diagnosis (1) Acute on chronic diastolic (congestive) heart failure Is this a current diagnosis for this admission?: Yes Plan: Improved As a result of discontinued lasix following previous hospitalization BNP improved 6080-->4420 ECHOcardiogram demonstrates LVEF 65%, mild to moderate LVH EKG shows NSR - no ischemia or infarct. Continue scheduled lasix, will transition from IV to PO today Serial cardiac enzymes negative, no longer trending (2) Acute on chronic renal failure Qualifiers: Acute renal failure type: unspecified Chronic kidney disease stage: stage 3 (moderate) Qualified Code(s): N17.9 - Acute kidney failure, unspecified; N18.3 - Chronic kidney disease, stage 3 (moderate) Is this a current diagnosis for this admission?: Yes Plan: Slight improvement today Creatinine 2.2-->2.8-->2.6-->2.47 today Baseline has been climbing over the last year Patient is able to make urine Monitor with daily chemistries Consulted nephrology, Dr. Steinberg stated there was not much to do for the patient's renal failure. No dialysis indicated at this time. (3) Acute respiratory failure with hypoxia Is this a current diagnosis for this admission?: Yes Plan: Secondary to CHF exacerbation stemming from lack of diuresis Initial CXR shows cardiomegaly with pulmonary edema Continue scheduled lasix PO supplemental O2 to maintain SPO2>92% PRN nebulizer treatments (4) COPD (chronic obstructive pulmonary disease) Qualifiers: COPD type: unspecified COPD Qualified Code(s): J44.9 - Chronic obstructive pulmonary disease, unspecified Is this a current diagnosis for this admission?: Yes Plan: PRN and scheduled nebulizer treatments Xopenex and Atrovent q8h Pulmicort every 12 hours Remaining plan as above (5) Diabetes mellitus type 2 in obese Is this a current diagnosis for this admission?: Yes Plan: Accucheks ACHS Diabetic/cardiac diet Humalog SSI Home dose glargine SC daily (6) Morbid obesity with BMI of 45.0-49.9, adult Is this a current diagnosis for this admission?: Yes Plan: Patient will be seen in consultation by the dietitian for evaluation of her dietary needs and treating her multiple illnesses. Additional directions towards a diet that would aid in weight loss and lifestyle changes that may improve her overall health and well-being will be made. (7) Urinary tract infection Qualifiers: Urinary tract infection type: acute cystitis Hematuria presence: without hematuria Qualified Code(s): N30.00 - Acute cystitis without hematuria Is this a current diagnosis for this admission?: Yes Plan: Urinalysis indicative of UTI Urine cultures positive for Proteus and E. coli Resistant to multiple antibiotics Discontinue cefepime, initiate Cefuroxime (8) Debility Is this a current diagnosis for this admission?: Yes Plan: Improving Able to walk 20ft with PT Only 1 person min. assist Safe to ambulate with family/staff Will need home health & PT upon discharge - Time Time Spent with patient: 15-24 minutes Medications reviewed and adjusted accordingly: Yes Anticipated discharge: Home Within: within 48 hours - Inpatient Certification Based on my medical assessment, after consideration of the patient's comorbidities, presenting symptoms, or acuity I expect that the services needed warrant INPATIENT care.: Yes I certify that my determination is in accordance with my understanding of Medicare's requirements for reasonable and necessary INPATIENT services [42 CFR 412.3e].: Yes Medical Necessity: Risk of Complication if Not Cared For in Hospital
[2019-02-02] MEDS ORDERED: ACETAMINOPHEN 325 MG TABLET PO PRN (14:25)
[2019-02-02] MEDS: ONDANSETRON HCL INJ/PF 4 MG/2 ML SDV IV PRN ×2 (14:36→20:54)
[2019-02-02] MEDS: CEFUROXIME 250 MG TABLET PO SCH (17:31)
[2019-02-02] MEDS: MONTELUKAST SODIUM 10 MG TABLET PO SCH (17:31)
[2019-02-02] MEDS: DIPHENHYDRAMINE HCL 25 MG CAPSULE PO SCH (21:09)
[2019-02-02] MEDS: ATORVASTATIN CALCIUM 80 MG TABLET PO SCH (21:09)
[2019-02-02] MEDS: INSULIN REG, HUMAN 100 UNIT/ML 3 ML VIAL (PYX) SUBCUT PRN (22:12)
[2019-02-03] MEDS: IPRATROPIUM BROMIDE 0.02% NEB 0.5 MG/2.5 ML AMPUL NEB SCH ×2 (00:24→08:48)
[2019-02-03] MEDS: LEVALBUTEROL HCL NEB 1.25 MG/3 ML AMPUL NEB SCH ×2 (00:24→08:48)
[2019-02-03] MEDS: CEFUROXIME 250 MG TABLET PO SCH (05:15)
[2019-02-03 06:25] LABS: HEMOGLOBIN 8.8 g/dL (12.0-15.5); MEAN CORPUSCULAR HEMOGLOBIN 30.7 pg (27.0-33.4); MEAN CORPUSCULAR VOLUME 90 fl (80-97); RED BLOOD COUNT 2.88 10^6/uL (3.72-5.28); WHITE BLOOD COUNT 5.1 10^3/uL (4.0-10.5)
[2019-02-03 06:26] LABS: PLATELET COUNT 123 10^3/uL (150-450); RED CELL DISTRIBUTION WIDTH 14.6 % (11.5-14.0)
[2019-02-03 06:51] LABS: ALANINE AMINOTRANSFERASE 18 U/L (9-52); ALBUMIN 2.9 g/dL (3.5-5.0); ALKALINE PHOSPHATASE 71 U/L (38-126); ANION GAP 6 (5-19); ASPARTATE AMINO TRANSFERASE 23 U/L (14-36); BILIRUBIN,DIRECT 0.3 mg/dL (0.0-0.4); BILIRUBIN,TOTAL 0.4 mg/dL (0.2-1.3); BLOOD UREA NITROGEN 44 mg/dL (7-20); CALCIUM 8.3 mg/dL (8.4-10.2); CARBON DIOXIDE 34 mmol/L (22-30); CHLORIDE 98 mmol/L (98-107); GLUCOSE 136 mg/dL (75-110); POTASSIUM 4.9 mmol/L (3.6-5.0); TOTAL PROTEIN 5.8 g/dL (6.3-8.2)
[2019-02-03] MEDS: INSULIN REG, HUMAN 100 UNIT/ML 3 ML VIAL (PYX) SUBCUT PRN (07:55)
[2019-02-03] MEDS: BUDESONIDE NEB 0.5 MG/2 ML AMPUL NEB SCH (08:49)
[2019-02-03] MEDS: ONDANSETRON HCL INJ/PF 4 MG/2 ML SDV IV PRN (09:50)
[2019-02-03] MEDS ORDERED: FAMOTIDINE 20 MG TABLET PO SCH (10:00)
[2019-02-03] MEDS ORDERED: KETOROLAC TROMETHAMINE INJ/PF 30 MG/1 ML SDV IV ONE (10:06)
[2019-02-03] MEDS ORDERED: TRAMADOL HCL 50 MG TABLET PO PRN (10:11)
[2019-02-03] MEDS: FUROSEMIDE 40 MG TABLET PO SCH (10:55)
[2019-02-03] MEDS: ISOSORBIDE MONONITRATE 60 MG TAB.ER.24H PO SCH (10:55)
[2019-02-03] MEDS: DOCUSATE SODIUM 100 MG CAPSULE PO SCH (10:55)
[2019-02-03] MEDS: CLOPIDOGREL BISULFATE 75 MG TABLET PO SCH (10:56)
[2019-02-03] MEDS: METOPROLOL SUCCINATE 25 MG TAB.SR.24H PO SCH (10:56)
[2019-02-03] MEDS: LOSARTAN POTASSIUM 25 MG TABLET PO SCH (10:57)
[2019-02-03] MEDS: LORATADINE 10 MG TABLET PO SCH (10:59)
[2019-02-03] MEDS ORDERED: INSULIN REG, HUMAN 100 UNIT/ML 3 ML VIAL (PYX) SUBCUT SCH (11:00)
[2019-02-03] MEDS: INSULIN GLARGINE,HUM.REC.ANLOG 1,000 UNIT/10 ML VIAL SUBCUT SCH (11:01)
[2019-02-03 12:29] VITALS: BP 95/45
--- NOTE | 2019-02-04 18:34 | PDOC DISCHARGE SUMMARY ---
General - Admit/Disc Date/PCP Admission Date/Primary Care Provider: 01/28/19 21:27 DANI PANDA, Discharge Date: 02/03/19 - Discharge Diagnosis (1) Acute on chronic renal failure Is this a current diagnosis for this admission?: Yes Summary: Improved; likely near baseline. Creatinine 2.20 -->2.8-->2.6-->2.47--> 2.22 today Excellent urinary output. Consulted nephrology, Dr. Steinberg stated there was not much to do for the patient's renal failure. No dialysis indicated at this time. Optimize cardiac function. Avoid nephrotoxic medications as able; did require resumption of lasix for maintenance of heart failure. Recommend repeat chemistry at follow up visit with PCP. Follow up with Nephrology as scheduled. (2) Acute respiratory failure with hypoxia Is this a current diagnosis for this admission?: Yes Summary: Resolved. Patient now maintaining oxygen saturation while ambulatory on room air. Secondary to CHF exacerbation stemming from lack of diuresis Initial CXR shows cardiomegaly with pulmonary edema Recommend continued use of incentive spirometer and flutter valve at home. Patient reports that she has a nebulizer machine with adequate nebulizer solution. Continue medications as ordered; monitor daily weights and report any weight gain greater than 2 pounds to primary care provider to prevent future episodes of fluid volume overload. (3) COPD (chronic obstructive pulmonary disease) Is this a current diagnosis for this admission?: Yes Summary: Acute exacerbation is resolved. Resume home maintenance regiment of Advair, Singulair, Claritin, and as needed albuterol nebulizer treatments. (4) Diabetes mellitus type 2 in obese Is this a current diagnosis for this admission?: Yes Summary: A1c 6.3%. Recommend continued consistent carb/cardiac diet. Resume outpatient regiment of insulin glargine 50 units twice daily. (5) Morbid obesity with BMI of 45.0-49.9, adult Is this a current diagnosis for this admission?: Yes Summary: The patient was provided the opportunity to meet with the registered dietitian. Dietary discretion and lifestyle modifications to aid in sustained weight loss were advised. (6) Urinary tract infection Is this a current diagnosis for this admission?: Yes Summary: Urinalysis indicative of UTI Urine cultures positive for Proteus and E. coli Resistant to multiple antibiotics Patient was empirically placed on IV cefepime; upon receipt of urine sensitivity, patient was placed on p.o. Cefuroxime for completion of antibiotic therapy. (7) Acute on chronic diastolic (congestive) heart failure Is this a current diagnosis for this admission?: Yes Summary: Resolved. Secondary to discontinued lasix following previous hospitalization BNP improved 6080-->4420 ECHOcardiogram demonstrates LVEF 65%, mild to moderate LVH EKG shows NSR - no ischemia or infarct. Serial cardiac enzymes negative, no longer trending Continue home dose aspirin, Plavix, statin therapy. Continue Imdur, losartan, metoprolol. Patient initially was provided diuresis with IV furosemide; excellent urinary output. Transitioned to her previous home dose of p.o. furosemide. Patient was educated on the importance of a low-sodium, fluid restricted diet. She did meet with the registered dietitian and patient educator. Arrangements have been made for the patient to receive home health nursing for continued disease and medication education and management. (8) Debility Is this a current diagnosis for this admission?: Yes Summary: Improved. The patient is now independently ambulatory. Home health nursing and physical therapy have been arranged. - Additional Information Resuscitation Status: Full Code Discharge Diet: Cardiac, Diabetic Discharge Activity: Activity As Tolerated, Balance Activity w/Rest, Weigh Daily Prescriptions: Cefuroxime Axetil [Ceftin 250 mg Tablet] 250 mg PO Q12A #14 tablet Tramadol HCl [Ultram 50 mg Tablet] 50 mg PO Q12HP PRN #10 tablet PRN Reason: Home Medications: Albuterol Sulfate [Proair HFA Inhalation Aerosol 8.5 gm MDI] 2 puff IH Q8HP PRN 01/28/19 Albuterol Sulfate [Ventolin 0.083% Neb 2.5 mg/3 mL Ampul] 1 vial NEB QIDP PRN 01/28/19 Aspirin [Aspirin 81 mg Chewable Tablet] 81 mg PO DAILY 01/28/19 Clopidogrel Bisulfate [Plavix 75 mg Tablet] 75 mg PO DAILY 01/28/19 Diphenhydramine HCl [Allergy Relief] 25 mg PO QHS 01/28/19 Diphenoxylate HCl/Atropine [Lomotil 2.5-0.025 mg Tablet] 1 tab PO TIDP PRN 01/28/19 Ezetimibe [Zetia 10 mg Tablet] 10 mg PO DAILY 01/28/19 Fenofibrate 160 mg PO DAILY 01/28/19 Fluticasone/Salmeterol [Advair 250-50 Diskus 14 Dose/Diskus] 1 inh IH Q12 01/28/19 Furosemide [Lasix 40 mg Tablet] 40 mg PO BID 01/28/19 Gabapentin [Neurontin] 600 mg PO Q12 01/28/19 Insulin Glargine,Hum.rec.anlog [Basaglar Kwikpen U-100] 50 unit SQ BID 01/28/19 Isosorbide Mononitrate [Imdur 60 mg Tablet.er] 60 mg PO DAILY 01/28/19 Linaclotide [Linzess] 72 mcg PO DAILY 01/28/19 Loratadine [Claritin 10 mg Tablet] 10 mg PO DAILY 01/28/19 Losartan Potassium [Cozaar 25 mg Tablet] 25 mg PO DAILY 01/28/19 Metoprolol Succinate [Toprol Xl 25 mg Tab.sr] 25 mg PO DAILY 01/28/19 Montelukast Sodium [Singulair 10 mg Tablet] 10 mg PO QPM 01/28/19 Nitroglycerin [Nitrostat 0.4 mg (1/150 Gr) Tabs 25/Bottle] 1 tab SL Q5MP PRN 01/28/19 Omeprazole 40 mg PO BIDACBS 01/28/19 Ondansetron [Ondansetron Odt] 8 mg PO DAILYP PRN 01/28/19 Rosuvastatin Calcium [Crestor] 40 mg PO QHS 01/28/19 Sitagliptin Phosphate [Januvia] 100 mg PO DAILY 01/28/19 Acetaminophen [Tylenol 325 mg Tablet] 650 mg PO Q6HP PRN tablet 02/03/19 Cefuroxime Axetil [Ceftin 250 mg Tablet] 250 mg PO Q12A #14 tablet 02/03/19 Tramadol HCl [Ultram 50 mg Tablet] 50 mg PO Q12HP PRN #10 tablet 02/03/19 History of Present Illness History of Present Illness: Per H&P by Dr. Ferguson: PRECIOUS BURCH is a 73 year old female who presented to the emergency room with a 3-week history of progressively worsening dyspnea. She admits that she developed dyspnea actually prior to her last hospital admission and still had dyspnea at the time that she left the hospital which has only worsened since she was taken off of her diuretic medications during her hospital stay. She was discharged almost 2 weeks ago and symptoms have continued to worsen to the point where her dyspnea is now severe. Her dyspnea is significantly worsened by exertion and it has been accompanied by orthopnea at rest and a nonproductive cough during exertion. She also admits the associated symptoms of decreased urinary output, constipation and swelling of her left breast, face, abdomen and lower extremities. Patient admits that she has had numerous prior similar episodes associated with her congestive heart failure and has not identified any additional aggravating or ameliorating factors for her dyspnea at this time. In the emergency room she was found to be hypoxic requiring supplemental oxygen to maintain an adequate O2 saturation. Additionally she had an elevated BNP and an elevated creatinine over her apparent baseline. Physical Exam Vital Signs: Temp Pulse Resp BP Pulse Ox 98.2 F 77 18 116/61 90 L 02/03/19 07:15 02/03/19 08:49 02/03/19 08:49 02/03/19 07:15 02/03/19 08:49 Intake & Output 02/02/19 02/03/19 02/04/19 06:59 06:59 06:59 Intake Total 937 1265 Output Total 1900 1825 Balance -963 -560 Weight 93.7 kg 93.1 kg General appearance: PRESENT: no acute distress, morbidly obese, well-developed, well-nourished Head exam: PRESENT: atraumatic, normocephalic Eye exam: PRESENT: conjunctiva pink, EOMI, PERRLA. ABSENT: scleral icterus Mouth exam: PRESENT: moist, tongue midline Neck exam: ABSENT: carotid bruit, JVD, lymphadenopathy, thyromegaly Respiratory exam: PRESENT: clear to auscultation cheli, symmetrical, unlabored. ABSENT: rales, rhonchi, wheezes Cardiovascular exam: PRESENT: RRR. ABSENT: diastolic murmur, rubs, systolic murmur Pulses: PRESENT: normal dorsalis pedis pul Vascular exam: PRESENT: normal capillary refill GI/Abdominal exam: PRESENT: normal bowel sounds, soft. ABSENT: distended, guar ding, mass, organolmegaly, rebound, tenderness Rectal exam: PRESENT: deferred Extremities exam: PRESENT: full ROM, pedal edema - trace, tenderness - LLE; chronic sciatica pain. ABSENT: calf tenderness, clubbing Neurological exam: PRESENT: alert, awake, oriented to person, oriented to place, oriented to time, oriented to situation, CN II-XII grossly intact. ABSENT: motor sensory deficit Psychiatric exam: PRESENT: appropriate affect, normal mood. ABSENT: homicidal ideation, suicidal ideation Skin exam: PRESENT: dry, intact, warm. ABSENT: cyanosis, rash Results Laboratory Results: 02/03/19 05:21 02/03/19 05:21 02/03/19 02/03/19 05:21 05:21 WBC 5.1 RBC 2.88 L Hgb 8.8 L Hct 26.0 L MCV 90 MCH 30.7 MCHC 34.0 RDW 14.6 H Plt Count 123 L Sodium 138.0 Potassium 4.9 Chloride 98 Carbon Dioxide 34 H Anion Gap 6 BUN 44 H Creatinine 2.22 H Est GFR ( Amer) 26 L Est GFR (Non-Af Amer) 22 L Glucose 136 H Calcium 8.3 L Magnesium 2.2 Total Bilirubin 0.4 AST 23 ALT 18 Alkaline Phosphatase 71 Total Protein 5.8 L Albumin 2.9 L 01/28/19 01/28/19 01/28/19 19:06 19:06 22:15 Creatine Kinase 73 62 CK-MB (CK-2) 1.64 Troponin I < 0.012 NT-Pro-B Natriuret Pep 6080 H 01/28/19 01/29/19 01/29/19 22:15 04:46 04:46 Creatine Kinase 55 CK-MB (CK-2) 1.49 1.48 Troponin I 0.021 0.022 NT-Pro-B Natriuret Pep 01/29/19 01/29/19 01/30/19 10:40 10:40 05:19 Creatine Kinase 58 CK-MB (CK-2) 1.38 Troponin I < 0.012 NT-Pro-B Natriuret Pep 4260 H 01/31/19 02/01/19 04:38 04:05 Creatine Kinase CK-MB (CK-2) Troponin I NT-Pro-B Natriuret Pep 4670 H 4420 H Impressions: Chest X-Ray 01/28/19 17:45 IMPRESSION: Cardiomegaly with mild pulmonary edema. Qualifiers - * PATIENT BEING DISCHARGED WITH ANY OF THE FOLLOWING DIAGNOSIS: Heart Failure HF Pt being discharged on ACEI for LVEF less than 40%?: No Reason(s) for not prescribing ACEI:: Medical Contraindication - on ARB HF Pt being discharged on ARBS for LVEF less than 40%?: Yes HF Pt with Afib discharged with Warfarin?: No Reason(s) for not prescribing Warfarin:: Not indicated HF Pt discharged on evidence-based Beta Socorro:: Yes Plan Discharge Plan: Discharge to home, in stable condition, with home health nursing and physical therapy. Follow up with primary care provider within 1 week. Recommend weaning of all benzodiazepine and opiate medications. Recommend follow up chemistry at visit with PCP (patient is instructed to resume lasix at discharge). Follow up with established nephrolgist as scheduled. Return to the emergency department as needed for concerning symptoms. Time Spent: Greater than 30 Minutes
== END 2019-02-03 14:25 | disposition home or self-care (01) | DRG 291 ==
LOC: ER 17:27 → EH 21:27 → 3W 23:33
PROVIDERS: ADMIT Emergency Medicine; ATTEND Emergency Medicine
PROC: 3E0F73Z Introduction of Anti-inflammatory into Respiratory Tract, Via Natural or Artificial Opening (ICD-10-PCS; principal; 2019-01-28)
DX: I13.0 Hypertensive heart and chronic kidney disease with heart failure and stage 1 through stage 4 chronic kidney disease, or unspecified chronic kidney disease (principal); I50.33 Acute on chronic diastolic (congestive) heart failure; J96.01 Acute respiratory failure with hypoxia; Z68.41 Body mass index [BMI] 40.0-44.9, adult; N17.9 Acute kidney failure, unspecified; E11.22 Type 2 diabetes mellitus with diabetic chronic kidney disease; I25.10 Atherosclerotic heart disease of native coronary artery without angina pectoris; Z95.1 Presence of aortocoronary bypass graft; I25.2 Old myocardial infarction; E78.5 Hyperlipidemia, unspecified; N18.3 Chronic kidney disease, stage 3 (moderate); J44.9 Chronic obstructive pulmonary disease, unspecified; B96.20 Unspecified Escherichia coli [E. coli] as the cause of diseases classified elsewhere; Z16.24 Resistance to multiple antibiotics; B96.4 Proteus (mirabilis) (morganii) as the cause of diseases classified elsewhere; E66.01 Morbid (severe) obesity due to excess calories; Z86.73 Personal history of transient ischemic attack (TIA), and cerebral infarction without residual deficits; Z90.49 Acquired absence of other specified parts of digestive tract; Z90.710 Acquired absence of both cervix and uterus; Z98.84 Bariatric surgery status; Z87.891 Personal history of nicotine dependence; Z82.49 Family history of ischemic heart disease and other diseases of the circulatory system; Z79.51 Long term (current) use of inhaled steroids; Z79.82 Long term (current) use of aspirin; Z79.4 Long term (current) use of insulin; Z79.899 Other long term (current) drug therapy; Z88.0 Allergy status to penicillin; Z88.8 Allergy status to other drugs, medicaments and biological substances; Z87.440 Personal history of urinary (tract) infections
CPT/HCPCS: 36415; 71045; 80048; 80053; 80061; 81001; 82550; 82553; 82962; 83036; 83735; 83880; 84439; 84443; 84481; 84484; 85025; 85027; 87086; 87088; 87186; 93005; 93010; 93306; 94640; 99285; J0692; J1644; J1815; J1885; J1940; J2270; J2405; J3490

== ENCOUNTER 2019-02-05 13:57 | Emergency (ER) | payer MEDICARE, MEDICAID ==
[2019-02-05 14:42] LABS: VENOUS BLOOD BASE EXCESS 3.1 mmol/L; VENOUS BLOOD HCO3 31.5 mmol/L (20-32); VENOUS BLOOD PCO2 63.5 mmHg (35-63); VENOUS BLOOD PH 7.31 (7.30-7.42)
[2019-02-05 14:46] LABS: AMORPHOUS SEDIMENT,URINE TRACE /HPF; APPEARANCE,URINE SLIGHTLY-CLOUDY; BILIRUBIN,URINE NEGATIVE (NEGATIVE); COLOR,URINE YELLOW; GLUCOSE, URINE NEGATIVE (NEGATIVE); KETONES,URINE NEGATIVE (NEGATIVE); LEUKOCYTE ESTERASE,URINE TRACE (NEGATIVE); NITRITE,URINE NEGATIVE (NEGATIVE); PROTEIN,URINE 100 mg/dL (NEGATIVE); URINE SPECIFIC GRAVITY 1.015; UROBILINOGEN,URINE NEGATIVE mg/dL (<2.0)
[2019-02-05 14:59] LABS: ABSOLUTE EOSINOPHILS # (AUTO) 0.4 10^3/uL (0.0-0.6); ABSOLUTE LYMPHOCYTES (AUTO) 1.4 10^3/uL (0.5-4.7); ABSOLUTE MONOCYTES (AUTO) 0.5 10^3/uL (0.1-1.4); BASOPHILS % (AUTO) 0.7 % (0-2); EOSINOPHILS % (AUTO) 5.8 % (0-6); HEMATOCRIT 27.7 % (36.0-47.0); HEMOGLOBIN 9.2 g/dL (12.0-15.5); LYMPHOCYTES % (AUTO) 22.2 % (13-45); MEAN CORPUSCULAR HEMOGLOBIN 30.3 pg (27.0-33.4); MEAN CORPUSCULAR HGB CONC 33.2 g/dL (32.0-36.0); MEAN CORPUSCULAR VOLUME 91 fl (80-97); MONOCYTES % (AUTO) 8.1 % (3-13); PLATELET COUNT 140 10^3/uL (150-450); RED BLOOD COUNT 3.04 10^6/uL (3.72-5.28); RED CELL DISTRIBUTION WIDTH 14.7 % (11.5-14.0); SEGMENTED NEUTROPHILS % (AUTO) 63.2 % (42-78); TOTAL CELLS COUNTED % (AUTO) 100 %; WHITE BLOOD COUNT 6.3 10^3/uL (4.0-10.5)
[2019-02-05 15:04] LABS: INTERNATIONAL RATION (INR) 0.97; PROTHROMBIN TIME 13.4 SEC (11.4-15.4)
[2019-02-05 15:20] LABS: ALANINE AMINOTRANSFERASE 19 U/L (9-52); ALBUMIN 3.2 g/dL (3.5-5.0); ALKALINE PHOSPHATASE 71 U/L (38-126); ANION GAP 7 (5-19); ASPARTATE AMINO TRANSFERASE 41 U/L (14-36); BILIRUBIN,DIRECT 0.5 mg/dL (0.0-0.4); BILIRUBIN,TOTAL 0.5 mg/dL (0.2-1.3); BLOOD UREA NITROGEN 47 mg/dL (7-20); CALCIUM 8.4 mg/dL (8.4-10.2); CARBON DIOXIDE 31 mmol/L (22-30); CHLORIDE 93 mmol/L (98-107); CREATINE KINASE 72 U/L (30-135); GLUCOSE 126 mg/dL (75-110); SODIUM 131.2 mmol/L (137-145); TOTAL PROTEIN 6.2 g/dL (6.3-8.2)
[2019-02-05 15:33] LABS: CREATINE KINASE MB 1.21 ng/mL (<4.55); TROPONIN I 0.014 ng/mL
--- NOTE | 2019-02-05 15:47 | ER Document Report ---
ED General - General Chief Complaint: General Weakness Stated Complaint: WEAKNESS Time Seen by Provider: 02/05/19 14:26 Primary Care Provider: DANI PANDA DO [Primary Care Provider] - Follow up as needed TRAVEL OUTSIDE OF THE [place] IN LAST 30 DAYS: No - HPI Notes: Patient presents to the emergency department for evaluation. She was recently admitted to the hospital, discharged just over a week ago. states that initially they thought she had pneumonia. Then it was thought she had a UTI and congestive heart failure. She was sent home on antibiotics. She was going to a physician office for follow-up today. She had a near syncopal episode in the car, felt weak. According to the physician's office her oxygen saturation was 77%. On arrival here she was 89%. She presented here via private vehicle for further evaluation. The patient at this point denies any pain. She was taking her medications as prescribed. She just feels weak. No known fevers. Eating and drinking at home. No vomiting, no diarrhea. Beatrice short of breath earlier today. She does have a dry cough but states that has been going on for months. It is not worse than normal. - Related Data Allergies/Adverse Reactions: amoxicillin trihydrate [From Augmentin] Allergy (Severe, Verified 01/06/19 14:12) stomach cramps, n and v, rash butalbital [From Fiorinal] Allergy (Unknown, Verified 01/06/19 14:12) rash metformin HCl [From Glucophage] Allergy (Unknown, Verified 01/06/19 14:12) rash Potassium Clavulanate * [From Augmentin] Adverse Reaction (Unknown, Verified 01/06/19 14:12) nausea, vomit, epig pain Past Medical History - General Information source: Patient, [facility] Office - Social History Smoking Status: Unknown if Ever Smoked Drug Abuse: None Family History: CAD, DM, Hypertension, Malignancy, Other - Kidney disease Patient has suicidal ideation: No Patient has homicidal ideation: No - Past Medical History Cardiac Medical History: Reports: Hx Congestive Heart Failure, Hx Coronary Artery Disease - BYPASS 2001, Hx Heart Attack, Hx Hypercholesterolemia, Hx Hypertension Denies: Hx Atrial Fibrillation, Hx DVT, Hx Pulmonary Embolism Pulmonary Medical History: Reports: Hx Asthma, Hx Bronchitis, Hx COPD, Hx Pneumonia, Hx Respiratory Failure, Hx Sleep Apnea - no cpap insurance does not cover Denies: Hx Tuberculosis Neurological Medical History: Reports: Hx Cerebrovascular Accident - X4. Denies: Hx Seizures Endocrine Medical History: Reports: Hx Diabetes Mellitus Type 2 - DX [place] 1994. Denies: Hx Diabetes Mellitus Type 1, Hx Hyperthyroidism, Hx Hypothyroidism Renal/ Medical History: Reports: Hx End Stage Renal Disease, Hx Kidney Stones. Denies: Hx Peritoneal Dialysis GI Medical History: Reports: Hx Ulcer. Denies: Hx Cirrhosis, Hx Gastroesopha geal Reflux Disease, Hx Hepatitis, Hx Pancreatitis Musculoskeletal Medical History: Reports Hx Arthritis, Denies Hx Gout, Denies Hx Multiple Sclerosis Skin Medical History: Denies Hx Eczema, Denies Hx Psoriasis Psychiatric Medical History: Reports: Hx Depression Denies: Hx Bipolar Disorder, Hx Schizophrenia Infectious Medical History: Denies: Hx Hepatitis Past Surgical History: Reports: Hx Cardiac Catheterization, Hx Section, Hx Cholecystectomy, Hx Coronary Stent, Hx Gastric Bypass Surgery - 2001, Hx Gynecologic Surgery, Hx Hysterectomy, Hx Open Heart Surgery - 2001 TRIPLE BYPASS, Hx Rectal Surgery, Hx Tubal Ligation - Immunizations Hx Diphtheria, Pertussis, Tetanus Vaccination: No Hx Pneumococcal Vaccination: 11/11/14 Review of Systems - Review of Systems Constitutional: Malaise, Weakness EENT: No symptoms reported Cardiovascular: No symptoms reported Respiratory: See HPI Gastrointestinal: No symptoms reported Genitourinary: No symptoms reported Female Genitourinary: No symptoms reported Musculoskeletal: No symptoms reported Skin: No symptoms reported Neurological/Psychological: No symptoms reported Physical Exam - Vital signs Vitals: Resp Pulse Ox 11 L 98 02/05/19 14:00 02/05/19 14:00 Notes: Mildly hypoxic on room air, otherwise vitals stable and as charted - Notes Notes: Vital signs reviewed, please refer to chart. Patient is normocephalic, atraumatic. Pupils equal round, reactive to light. Neck is supple without meningismus. Heart is regular rate and rhythm. Lungs are clear to auscultation bilaterally. Abdomen is soft, nontender, normoactive bowel sounds throughout. Extremities without cyanosis, clubbing, edema. Peripheral pulses are equal. Skin is warm and dry. Patient is awake, but drowsy. Cranial nerves II through XII are grossly intact without focal neurological deficits. Strength is 4+ out of 5 bilateral upper and lower extremities. Sensation is intact. Course - Re-evaluation Re-evalutation: 02/05/19 15:48 Patient presents emergency department for evaluation. I am concerned about the possibility of sepsis as well as heart failure in this patient. She is placed on a high reach operator, oxygen per nasal cannula, IV was established and labs were sent. Patient is remained stable, will continue to follow. 02/05/19 18:46 Patient was monitored for some time here in the emergency department. She was taken off of her oxygen remained above 96% while at rest. With walking she was at 92-93%. The patient is likely more short of breath secondary to debility. There is a possibility of a lingular pneumonia on chest x-ray, but she has no leukocytosis. She has no fever. Her cough is been stable. Strong suspicion for this. I think she is just weak. She has physical therapy starting tomorrow. She has her home health nurse starting on Saturday, and has an appointment to see her doctor on Saturday. She feels comfortable going home, her feels comfortable taking her home. She is to continue her antibiotic for UTI. They were told if she has any worsening or new concerning symptoms of any sort they are to return immediately to the emergency department for reevaluation. They voiced understanding and will follow up on Saturday. 02/05/19 18:48 - Vital Signs Vital signs: Temp Pulse Resp BP Pulse Ox 12 115/56 L 95 02/05/19 17:21 02/05/19 17:21 02/05/19 17:21 - Laboratory Result Diagrams: 02/05/19 14:06 02/05/19 14:06 Laboratory results interpreted by me: 02/05/19 02/05/19 02/05/19 14:06 14:06 14:06 RBC 3.04 L Hgb 9.2 L Hct 27.7 L RDW 14.7 H Plt Count 140 L VBG pCO2 63.5 H Sodium 131.2 L Chloride 93 L Carbon Dioxide 31 H BUN 47 H Creatinine 2.65 H Est GFR ( Amer) 21 L Est GFR (Non-Af Amer) 18 L Glucose 126 H Direct Bilirubin 0.5 H AST 41 H NT-Pro-B Natriuret Pep Total Protein 6.2 L Albumin 3.2 L Urine Protein Ur Leukocyte Esterase 02/05/19 02/05/19 14:06 14:06 RBC Hgb Hct RDW Plt Count VBG pCO2 Sodium Chloride Carbon Dioxide BUN Creatinine Est GFR ( Amer) Est GFR (Non-Af Amer) Glucose Direct Bilirubin AST NT-Pro-B Natriuret Pep 4310 H Total Protein Albumin Urine Protein 100 H Ur Leukocyte Esterase TRACE H - Diagnostic Test Radiology reviewed: Reports reviewed - Unable to rule out lingular pneumonia - EKG Interpretation by Me Additional EKG results interpreted by me: 02/05/19 18:48 Sinus bradycardia with a rate of 56 bpm. Left axis deviation. Incomplete left bundle branch block. No significant change when compared to prior study of January 29, 2019. Discharge - Discharge Clinical Impression: Debility, CKD (chronic kidney disease), stage III, Weakness Condition: Stable Disposition: HOME, SELF-CARE Instructions: Weakness ([facility]) Additional Instructions: Continue your antibiotic for your urinary tract infection. Start with physical therapy tomorrow, home health nursing as scheduled. See your doctor on Saturday. Return to the emergency department with worsening or new concerning symptoms of any sort. Referrals: DANI PANDA DO [Primary Care Provider] - Follow up as needed
--- NOTE | 2019-02-05 16:14 | RADIOLOGY REPORT (SQ) ---
EXAM DESCRIPTION: CHEST SINGLE VIEW COMPLETED DATE/TIME: 02/05/2019 4:08 pm REASON FOR STUDY: hypoxia COMPARISON: 01/28/2019 EXAM PARAMETERS: NUMBER OF VIEWS: One view. TECHNIQUE: Single frontal radiographic view of the chest acquired. RADIATION DOSE: NA LIMITATIONS: Patient is rotated to the left. FINDINGS: LUNGS AND PLEURA: There appears to be increased opacification in the left mid lung. Left hemidiaphragm is well-defined. MEDIASTINUM AND HILAR STRUCTURES: No masses. Contour normal. HEART AND VASCULAR STRUCTURES: Heart size is borderline. There is no pulmonary edema. BONES: No acute findings. HARDWARE: None in the chest. OTHER: No other significant finding. IMPRESSION: Borderline cardiomegaly without pulmonary edema. Cannot exclude limited lingular pneumo delonte. TECHNICAL DOCUMENTATION: JOB ID: [id number] [employer]- All Rights Reserved Reading location - IP/workstation name: [email or web address]
[2019-02-05 19:05] VITALS: BP 117/56
--- NOTE | 2019-02-05 20:14 | EKG REPORT ---
SEVERITY:- ABNORMAL ECG - SINUS RHYTHM INCOMPLETE LEFT BUNDLE BRANCH BLOCK LOW VOLTAGE IN FRONTAL LEADS BORDERLINE R WAVE PROGRESSION, ANTERIOR LEADS : Confirmed by: Glenys Quesada MD 05-Feb-2019 20:13:28
== END 2019-02-05 19:16 | disposition home or self-care (01) ==
LOC: ER 13:57
DX: R53.81 Other malaise (principal); I13.0 Hypertensive heart and chronic kidney disease with heart failure and stage 1 through stage 4 chronic kidney disease, or unspecified chronic kidney disease; E11.22 Type 2 diabetes mellitus with diabetic chronic kidney disease; N18.3 Chronic kidney disease, stage 3 (moderate); I50.9 Heart failure, unspecified; R53.1 Weakness; I25.10 Atherosclerotic heart disease of native coronary artery without angina pectoris; I25.2 Old myocardial infarction; J44.9 Chronic obstructive pulmonary disease, unspecified
CPT/HCPCS: 36415; 71045; 80053; 81001; 82550; 82553; 82803; 82962; 83605; 83880; 84484; 85025; 85610; 86850; 86870; 86900; 86901; 87040; 87086; 93005; 93010; 99285

== ENCOUNTER 2019-02-14 14:34 | Inpatient (IN) | payer MEDICARE, MEDICAID ==
[2019-02-14 15:09] LABS: ABSOLUTE EOSINOPHILS # (AUTO) 0.3 10^3/uL (0.0-0.6); ABSOLUTE LYMPHOCYTES (AUTO) 0.8 10^3/uL (0.5-4.7); ABSOLUTE MONOCYTES (AUTO) 0.4 10^3/uL (0.1-1.4); BASOPHILS % (AUTO) 0.7 % (0-2); HEMATOCRIT 23.7 % (36.0-47.0); LYMPHOCYTES % (AUTO) 14.7 % (13-45); MEAN CORPUSCULAR HEMOGLOBIN 31.1 pg (27.0-33.4); MEAN CORPUSCULAR HGB CONC 33.7 g/dL (32.0-36.0); MEAN CORPUSCULAR VOLUME 92 fl (80-97); MONOCYTES % (AUTO) 6.4 % (3-13); PLATELET COUNT 107 10^3/uL (150-450); RED BLOOD COUNT 2.56 10^6/uL (3.72-5.28); RED CELL DISTRIBUTION WIDTH 15.9 % (11.5-14.0); SEGMENTED NEUTROPHILS % (AUTO) 72.2 % (42-78); TOTAL CELLS COUNTED % (AUTO) 100 %; WHITE BLOOD COUNT 5.6 10^3/uL (4.0-10.5)
--- NOTE | 2019-02-14 15:31 | RADIOLOGY REPORT (SQ) ---
EXAM DESCRIPTION: CHEST SINGLE VIEW COMPLETED DATE/TIME: 02/14/2019 2:59 pm REASON FOR STUDY: Shortness of breath COMPARISON: 02/05/2019 and earlier EXAM PARAMETERS: NUMBER OF VIEWS: One view. TECHNIQUE: Single frontal radiographic view of the chest acquired. RADIATION DOSE: NA LIMITATIONS: None. FINDINGS: LUNGS AND PLEURA: Questionable small left pleural effusion. Linear atelectasis the right lung base. Right costophrenic angle is sharp. No focal consolidation. No pneumothorax. MEDIASTINUM AND HILAR STRUCTURES: No masses. Contour normal. HEART AND VASCULAR STRUCTURES: Borderline cardiomegaly, similar to prior. Central pulmonary vasculat ure is accentuated due to low lung volumes. BONES: No acute findings. HARDWARE: From postsurgical changes of the mediastinum. OTHER: No other significant finding. IMPRESSION: Questionable small left pleural effusion. TECHNICAL DOCUMENTATION: JOB ID: [id number] [employer]- All Rights Reserved Reading location - IP/workstation name: [email or web address]
[2019-02-14 15:38] LABS: ALANINE AMINOTRANSFERASE 21 U/L (9-52); ALKALINE PHOSPHATASE 53 U/L (38-126); ANION GAP 9 (5-19); ASPARTATE AMINO TRANSFERASE 22 U/L (14-36); BILIRUBIN,DIRECT 0.4 mg/dL (0.0-0.4); BILIRUBIN,TOTAL 0.5 mg/dL (0.2-1.3); BLOOD UREA NITROGEN 72 mg/dL (7-20); CALCIUM 7.4 mg/dL (8.4-10.2); CARBON DIOXIDE 24 mmol/L (22-30); CHLORIDE 98 mmol/L (98-107); CREATINE KINASE 112 U/L (30-135); GLUCOSE 116 mg/dL (75-110); SODIUM 131.3 mmol/L (137-145); TOTAL PROTEIN 5.8 g/dL (6.3-8.2)
[2019-02-14 15:47] LABS: CREATINE KINASE MB 2.05 ng/mL (<4.55)
[2019-02-14 15:48] LABS: POTASSIUM 6.1 mmol/L (3.6-5.0)
--- NOTE | 2019-02-14 15:53 | EKG REPORT ---
SEVERITY:- ABNORMAL ECG - SINUS BRADYCARDIA ATRIAL PREMATURE COMPLEX NONSPECIFIC INTRAVENTRICULAR CONDUCTION DELAY NONSPECIFIC ST-T CHANGES- INFERIOR LEADS : Confirmed by: Pelon Ruano MD 14-Feb-2019 15:52:59
[2019-02-14 15:56] LABS: TROPONIN I < 0.012 ng/mL
[2019-02-14] MEDS ORDERED: ALBUTEROL SULFATE 0.083% NEB 2.5 MG/3 ML AMPUL NEB ONE (16:02)
[2019-02-14] MEDS ORDERED: SODIUM POLYSTYRENE SULFONATE 15 GM/60 ML PO ONE (16:04)
[2019-02-14] MEDS ORDERED: CALCIUM GLUCONATE 1000 MG/10 ML INJ IV ONE (16:04)
--- NOTE | 2019-02-14 16:05 | ER Document Report ---
ED Respiratory Problem - General Chief Complaint: Breathing Difficulty Stated Complaint: BREATHING DIFFICULTY Time Seen by Provider: 02/14/19 14:46 Notes: 73-year-old female patient emergency department via EMS for difficulty breathing. EMS arrived patient was in respiratory distress. Oxygen level was 90%. History of CHF, COPD, renal failure. Multiple visits to the ER and hospitalizations. TRAVEL OUTSIDE OF THE [place] IN LAST 30 DAYS: No - HPI Patient complains to provider of: Cough, Short of breath Onset: Just prior to arrival Duration: Continuous Quality of pain: No pain Severity: Severe Pain Level: Denies Context: Hx CHF, Hx COPD Short of Breath: Severe Cough: Nonproductive Sputum amount: None Associated symptoms: Cough - Related Data Allergies/Adverse Reactions: amoxicillin trihydrate [From Augmentin] Allergy (Severe, Verified 01/06/19 14:12) stomach cramps, n and v, rash butalbital [From Fiorinal] Allergy (Unknown, Verified 01/06/19 14:12) rash metformin HCl [From Glucophage] Allergy (Unknown, Verified 01/06/19 14:12) rash Potassium Clavulanate * [From Augmentin] Adverse Reaction (Unknown, Verified 01/06/19 14:12) nausea, vomit, epig pain Past Medical History - General Information source: Patient - Social History Smoking Status: Former Smoker Chew tobacco use (# tins/day): No Frequency of alcohol use: None Drug Abuse: None Lives with: Family Family History: CAD, DM, Hypertension, Malignancy, Other - Kidney disease Patient has suicidal ideation: No Patient has homicidal ideation: No - Past Medical History Cardiac Medical History: Reports: Hx Congestive Heart Failure, Hx Coronary Artery Disease - BYPASS 2001, Hx Heart Attack, Hx Hypercholesterolemia, Hx Hypertension Denies: Hx Atrial Fibrillation, Hx DVT, Hx Pulmonary Embolism Pulmonary Medical History: Reports: Hx Asthma, Hx Bronchitis, Hx COPD, Hx Pneumonia, Hx Respiratory Failure, Hx Sleep Apnea - no cpap insurance does not cover Denies: Hx Tuberculosis Neurological Medical History: Reports: Hx Cerebrovascular Accident - X4. Denies: Hx Seizures Endocrine Medical History: Reports: Hx Diabetes Mellitus Type 2 - DX [place] 1994. Denies: Hx Diabetes Mellitus Type 1, Hx Hyperthyroidism, Hx Hypothyroidism Renal/ Medical History: Reports: Hx End Stage Renal Disease, Hx Kidney Stones. Denies: Hx Peritoneal Dialysis GI Medical History: Reports: Hx Ulcer. Denies: Hx Cirrhosis, Hx Gastroesophageal Reflux Disease, Hx Hepatitis, Hx Pancreatitis Musculoskeletal Medical History: Reports Hx Arthritis, Denies Hx Gout, Denies Hx Multiple Sclerosis Skin Medical History: Denies Hx Eczema, Denies Hx Psoriasis Psychiatric Medical History: Reports: Hx Depression Denies: Hx Bipolar Disorder, Hx Schizophrenia Infectious Medical History: Denies: Hx Hepatitis Past Surgical History: Reports: Hx Cardiac Catheterization, Hx Section, Hx Cholecystectomy, Hx Coronary Stent, Hx Gastric Bypass Surgery - 2001, Hx Gynecologic Surgery, Hx Hysterectomy, Hx Open Heart Surgery - 2001 TRIPLE BYPASS, Hx Rectal Surgery, Hx Tubal Ligation - Immunizations Hx Diphtheria, Pertussis, Tetanus Vaccination: No Hx Pneumococcal Vaccination: 11/11/14 Review of Systems - Review of Systems Notes: Constitutional: denies: Chills, Diaphoresis, Fever, Malaise, Weakness EENT: denies: Eye discharge, Blurred vision, Tearing, Double vision, Nose congestion, Nose discharge, Throat swelling, Mouth pain Cardiovascular: denies: Palpitations, Heart racing, Orthopnea, Dyspnea, Chest pain Respiratory: Cough, shortness of breath, respiratory distress, pleural effusions Gastrointestinal: denies: Abdominal pain, Diarrhea, Nausea, Vomiting, Black stools, bright red blood in stool Genitourinary: denies: Burning, Dysuria, Discharge, Frequency, Flank pain, Hematuria Musculoskeletal: denies: Joint pain, Joint swelling, Muscle pain, Muscle stiffness, back pain Hematologic/Lymphatic: denies: Anemia, Easy bleeding, Easy bruising, Blood clots Neurological/Psychological: denies: Confusion, Dementia, Depression, Loss of consciousness Skin: No lesions, no masses, no skin breakdown, no abscesses Physical Exam - Vital signs Vitals: Pulse Ox 100 02/14/19 14:40 Interpretation: Bradycardic, Tachypneic - General General appearance: Appears well, Alert - HEENT Head: Normocephalic, Atraumatic Eyes: Normal Pupils: PERRL - Respiratory Respiratory status: No respiratory distress Chest status: Nontender Breath sounds: Rales - Bilateral rails Chest palpation: Normal - Cardiovascular Rhythm: Regular Heart sounds: Normal auscultation Murmur: No - Abdominal Inspection: Normal Distension: No distension Bowel sounds: Normal Tenderness: Nontender Organomegaly: No organomegaly - Back Back: Normal, Nontender - Extremities General upper extremity: Normal inspection, Nontender, Normal color, Normal ROM, Normal temperature General lower extremity: Normal inspection, Normal color, Normal ROM, Normal temperature. No: Tender, Edema, Connie's sign - Neurological Neuro grossly intact: Yes Cognition: Normal Orientation: AAOx4 Salma Coma Scale Eye Opening: Spontaneous [place] Coma Scale Verbal: Oriented [place] Coma Scale Motor: Obeys Commands Salma Coma Scale Total: 15 Speech: Normal Motor strength normal: LUE, RUE, LLE, RLE Sensory: Normal - Psychological Associated symptoms: Normal affect, Normal mood - Skin Skin Temperature: Warm Skin Moisture: Dry Skin Color: Pale Course - Re-evaluation Re-evalutation: 02/14/19 18:23 Laboratory 02/14/19 02/14/19 02/14/19 14:50 14:50 14:50 WBC 5.6 RBC 2.56 L Hgb 8.0 L Hct 23.7 L MCV 92 MCH 31.1 MCHC 33.7 RDW 15.9 H Plt Count 107 L Seg Neutrophils % 72.2 Lymphocytes % 14.7 Monocytes % 6.4 Eosinophils % 6.0 Basophils % 0.7 Absolute Neutrophils 4.0 Absolute Lymphocytes 0.8 Absolute Monocytes 0.4 Absolute Eosinophils 0.3 Absolute Basophils 0.0 PT INR APTT Carbonic Acid HCO3/H2CO3 Ratio ABG pH ABG pCO2 ABG pO2 ABG HCO3 ABG Total CO2 ABG O2 Saturation ABG Base Excess FiO2 Sodium 131.3 L Potassium 6.1 H* Chloride 98 Carbon Dioxide 24 Anion Gap 9 BUN 72 H Creatinine 4.31 H Est GFR ( Amer) 12 L Est GFR (Non-Af Amer) 10 L Glucose 116 H Calcium 7.4 L Total Bilirubin 0.5 Direct Bilirubin 0.4 Neonat Total Bilirubin Not Reportable Neonat Direct Bilirubin Not Reportable Neonat Indirect Bili Not Reportable AST 22 ALT 21 Alkaline Phosphatase 53 Creatine Kinase 112 CK-MB (CK-2) 2.05 Troponin I < 0.012 Total Protein 5.8 L Albumin 3.0 L 02/14/19 02/14/19 14:50 15:45 WBC RBC Hgb Hct MCV MCH MCHC RDW Plt Count Seg Neutrophils % Lymphocytes % Monocytes % Eosinophils % Basophils % Absolute Neutrophils Absolute Lymphocytes Absolute Monocytes Absolute Eosinophils Absolute Basophils PT 14.7 INR 1.10 APTT 34.0 Carbonic Acid 1.34 HCO3/H2CO3 Ratio 18:1 ABG pH 7.37 ABG pCO2 44.6 ABG pO2 187.0 H ABG HCO3 25.2 H ABG Total CO2 26.6 H ABG O2 Saturation 99.2 H ABG Base Excess -0.2 FiO2 60% Sodium Potassium Chloride Carbon Dioxide Anion Gap BUN Creatinine Est GFR ( Amer) Est GFR (Non-Af Amer) Glucose Calcium Total Bilirubin Direct Bilirubin Neonat Total Bilirubin Neonat Direct Bilirubin Neonat Indirect Bili AST ALT Alkaline Phosphatase Creatine Kinase CK-MB (CK-2) Troponin I Total Protein Albumin Chest X-Ray 02/14/19 14:45 IMPRESSION: Questionable small left pleural effusion. 02/14/19 18:27 Patient with acute kidney injury, mild hyperkalemia, anemia, pleural effusion. Breathing status is much better at this time. I am treating her with some albuterol. This will definitely help her heart rate as she has some sinus bradycardia but is on a beta-matti. I have taken her off of this BiPAP and she is holding her oxygen saturations at 100% on 2 L of oxygen. Heart rate now in the 70s. Respiratory rate coming down nicely at 15. Patient is to be admitted for further evaluation to make sure that she does not decompensate aga in. I am consulted with the hospitalist for admission at this time. - Vital Signs Vital signs: Temp Pulse Resp BP Pulse Ox 97.9 F 53 L 13 123/58 L 100 02/14/19 14:55 02/14/19 14:55 02/14/19 18:01 02/14/19 18:01 02/14/19 18:01 - Laboratory Result Diagrams: 02/14/19 14:50 02/14/19 14:50 Laboratory results interpreted by me: 02/14/19 02/14/19 02/14/19 14:50 14:50 15:45 RBC 2.56 L Hgb 8.0 L Hct 23.7 L RDW 15.9 H Plt Count 107 L ABG pO2 187.0 H ABG HCO3 25.2 H ABG Total CO2 26.6 H ABG O2 Saturation 99.2 H Sodium 131.3 L Potassium 6.1 H* BUN 72 H Creatinine 4.31 H Est GFR ( Amer) 12 L Est GFR (Non-Af Amer) 10 L Glucose 116 H Calcium 7.4 L Total Protein 5.8 L Albumin 3.0 L - EKG Interpretation by Me EKG shows normal: Intervals, QRS Complexes, ST-T Waves Rate: Bradycardia Critical Care Note - Critical Care Note Total time excluding time spent on procedures (mins): 45 Comments: Bradycardia, respiratory distress, hyperkalemia, Discharge - Discharge Clinical Impression: Acute kidney injury, Hyperkalemia, Respiratory distress, Cellulitis of left breast Condition: Good Disposition: ADMITTED INPATIENT Admitting Provider: [facility] Admitted: Telemetry
[2019-02-14 16:16] LABS: ARTERIAL BLOOD BASE EXCESS -0.2 mmol/L; ARTERIAL BLOOD H2CO3 1.34 mmol/L (1.05-1.35); ARTERIAL BLOOD HCO3 25.2 mmol/L (20-24); ARTERIAL BLOOD O2 SATURATION 99.2 % (94-98); ARTERIAL BLOOD PCO2 44.6 mmHg (35-45); ARTERIAL BLOOD PH 7.37 (7.35-7.45); ARTERIAL BLOOD TOTAL CO2 26.6 mmol/L (21-25)
[2019-02-14 16:20] LABS: PROTHROMBIN TIME 14.7 SEC (11.4-15.4)
[2019-02-14 16:29] LABS: ARTERIAL BLOOD FIO2 60%
[2019-02-14] MEDS ORDERED: SODIUM POLYSTYRENE SULFONATE 15 GM/60 ML ONE (17:39)
[2019-02-14] MEDS ORDERED: LEVOFLOXACIN 500 MG/D5W RTU 500 MG/100 ML RTUPB IV ONE (17:56)
--- NOTE | 2019-02-14 18:44 | RADIOLOGY REPORT (SQ) ---
EXAM DESCRIPTION: U/S BREAST UNILATERAL LIMITED COMPLETED DATE/TIME: 02/14/2019 6:29 pm REASON FOR STUDY: abscess versus cellulitis COMPARISON: None TECHNIQUE: Static and Realtime grayscale interrogation of focal area(s) of concern in the left breas t(s) acquired. Selected color doppler/spectral images saved to PACS. LIMITATIONS: None. FINDINGS: Masses:No cystic or solid masses identified Architecture:There is skin thickening present. There is edema noted within the scan as well as under lying breast tissue. Other: No organized fluid collections are present. IMPRESSION: No evidence of abscess. Thickened scan and breast tissue edema is consistent with cell ulitis/mastitis. BIRAD: 2 Benign findings.. RECOMMENDATION: RECOMMENDED FOLLOW-UP: Follow-up as clinically indicated. COMMENT: The [employer] ([employer]) has developed recommendations for screening MRI of the breasts in certain patient populations, to be used in conjunction with mammography. Breast MRI s urveillance may be appropriate for women with more than 20% lifetime risk of developing breast cancer as determined by genetic testing, significant family history of the disease, or history of mantle r adiation for Hodgkins Disease. [employer] Practice Guidelines 2008. TECHNICAL DOCUMENTATION: FINDING NUMBER: (1) ASSESSMENT: (1) JOB ID: [id number] [employer]- All Rights Reserved Reading location - IP/workstation name: [email or web address]
[2019-02-14] MEDS ORDERED: NORMAL SALINE 1000 ML 1,000 ML IV PRN (19:00)
[2019-02-14] MEDS ORDERED: DEXTROSE 50%-WATER 25 GM/50 ML DISP.SYRIN IV PRN ×2 (19:22)
[2019-02-14] MEDS ORDERED: DEXTROSE 40% GEL 15 GM TUBE PO PRN ×2 (19:22)
[2019-02-14] MEDS ORDERED: GLUCAGON,HUMAN RECOMB 1 MG INJ IM PRN (19:22)
--- NOTE | 2019-02-14 19:22 | PDOC H&P ---
History of Present Illness Admission Date/PCP: 02/14/19 18:08 DANI PANDA DO Patient complains of: Shortness of breath History of Present Illness: PRECIOUS BURCH is a 73 year old female with a past medical history of chronic obstructive pulmonary disease presented to the emergency department via EMS due to shortness of breath. EMS arrived patient was in respiratory distress with significant tachypnea. Oxygen level was 90%. Multiple visits to the ER and ho spitalizations. The patient was treated with supplemental O2 as well as nebulizers. While in the emergency department the patient was given Kayexalate as she was found to have a potassium of greater than 6. Patient has underlying chronic kidney disease and hyperkalemia is a chronic issue for her. According to the patient she had 2 days of excessive diarrhea. Patient stated that she was seen by her primary care provider prior to the diarrhea and her Lasix was doubled given increasing lower extremity edema. The patient states since the time the edema has improved but she is felt quite poorly. The patient was found to have a significant hyperkalemia and a cr of 4.31. Additionally the patient was complaining of left breast pain was found to have appearance of cellulitis as well as yeast under the breast. Given this collection of finding the patient has been referred to the hospitalist for admission and management. Past Medical History Cardiac Medical History: Reports: Congestive Heart Failure, Coronary Artery Disease - BYPASS 2001, Myocardial Infarction, Hyperlipidema, Hypertension Pulmonary Medical History: Reports: Asthma, Bronchitis, Chronic Obstructive Pulmonary Disease (COPD), Pneumonia, Respiratory Failure, Sleep Apnea - no cpap insurance does not cover Endocrine Medical History: Reports: Diabetes Mellitus Type 2 - DX [place] 1994 Renal/ Medical History: Reports: End Stage Renal Disease Musculoskeltal Medical History: Reports: Arthritis Psychiatric Medical History: Reports: Depression Hematology: Reports: Anemia, Bleeding Tendencies Past Surgical History Past Surgical History: Reports: Cardiac Catheterization, Section, Cho lecystectomy, Coronary Stent, Gastric Bypass Surgery - 2001, Hysterectomy, Tubal Ligation Social History Information Source: Patient Lives with: Family Smoking Status: Former Smoker Frequency of Alcohol Use: None Hx Recreational Drug Use: No Drugs: None Hx Prescription Drug Abuse: No - Advance Directive Resuscitation Status: Do Not Resuscitate Surrogate healthcare decision maker:: Family History Family History: CAD, DM, Hypertension, Malignancy, Other - Kidney disease Parental Family History Reviewed: Yes Children Family History Reviewed: Yes Sibling(s) Family History Reviewed.: Yes Medication/Allergy Home Medications: Albuterol Sulfate [Proair HFA Inhalation Aerosol 8.5 gm MDI] 2 puff IH Q8HP PRN 01/28/19 Albuterol Sulfate [Ventolin 0.083% Neb 2.5 mg/3 mL Ampul] 1 vial NEB QIDP PRN 01/28/19 Aspirin [Aspirin 81 mg Chewable Tablet] 81 mg PO DAILY 01/28/19 Clopidogrel Bisulfate [Plavix 75 mg Tablet] 75 mg PO DAILY 01/28/19 Diphenhydramine HCl [Allergy Relief] 25 mg PO QHS 01/28/19 Diphenoxylate HCl/Atropine [Lomotil 2.5-0.025 mg Tablet] 1 tab PO TIDP PRN 01/10 Ezetimibe [Zetia 10 mg Tablet] 10 mg PO DAILY 01/28/19 Fenofibrate 160 mg PO DAILY 01/28/19 Fluticasone/Salmeterol [Advair 250-50 Diskus 14 Dose/Diskus] 1 inh IH Q12 01/28/19 Furosemide [Lasix 40 mg Tablet] 40 mg PO BID 01/28/19 Gabapentin [Neurontin] 600 mg PO Q12 01/28/19 Insulin Glargine,Hum.rec.anlog [Basaglar Kwikpen U-100] 50 unit SQ BID 01/28/19 Isosorbide Mononitrate [Imdur 60 mg Tablet.er] 60 mg PO DAILY 01/28/19 Linaclotide [Linzess] 72 mcg PO DAILY 01/28/19 Loratadine [Claritin 10 mg Tablet] 10 mg PO DAILY 01/28/19 Losartan Potassium [Cozaar 25 mg Tablet] 25 mg PO DAILY 01/28/19 Metoprolol Succinate [Toprol Xl 25 mg Tab.sr] 25 mg PO DAILY 01/28/19 Montelukast Sodium [Singulair 10 mg Tablet] 10 mg PO QPM 01/28/19 Nitroglycerin [Nitrostat 0.4 mg (1/150 Gr) Tabs 25/Bottle] 1 tab SL Q5MP PRN 01/28/19 Omeprazole 40 mg PO BIDACBS 01/28/19 Ondansetron [Ondansetron Odt] 8 mg PO DAILYP PRN 01/28/19 Rosuvastatin Calcium [Crestor] 40 mg PO QHS 01/28/19 Sitagliptin Phosphate [Januvia] 100 mg PO DAILY 01/28/19 Acetaminophen [Tylenol 325 mg Tablet] 650 mg PO Q6HP PRN tablet 02/03/19 Cefuroxime Axetil [Ceftin 250 mg Tablet] 250 mg PO Q12A #14 tablet 02/03/19 Tramadol HCl [Ultram 50 mg Tablet] 50 mg PO Q12HP PRN #10 tablet 02/03/19 Allergies/Adverse Reactions: amoxicillin trihydrate [From Augmentin] Allergy (Severe, Verified 01/06/19 14:12) stomach cramps, n and v, rash butalbital [From Fiorinal] Allergy (Unknown, Verified 01/06/19 14:12) rash metformin HCl [From Glucophage] Allergy (Unknown, Verified 01/06/19 14:12) rash Potassium Clavulanate * [From Augmentin] Adverse Reaction (Unknown, Verified 01/06/19 14:12) nausea, vomit, epig pain Review of Systems Constitutional: ABSENT: chills, fever(s), headache(s), weight gain, weight loss Eyes: ABSENT: visual disturbances Ears: ABSENT: hearing changes Cardiovascular: PRESENT: dyspnea on exertion, edema, orthropnea. ABSENT: chest pain, palpitations Respiratory: PRESENT: cough. ABSENT: hemoptysis, sputum Gastrointestinal: PRESENT: diarrhea, nausea. ABSENT: abdominal pain, constipation, hematemesis, hematochezia, vomiting Genitourinary: ABSENT: dysuria, hematuria Musculoskeletal: ABSENT: joint swelling Integumentary: ABSENT: rash, wounds Neurological: ABSENT: abnormal gait, abnormal speech, confusion, dizziness, focal weakness, syncope Psychiatric: ABSENT: anxiety, depression, homidical ideation, suicidal ideation Endocrine: ABSENT: cold intolerance, heat intolerance, polydipsia, polyuria Hematologic/Lymphatic: ABSENT: easy bleeding, easy bruising Physical Exam Vital Signs: Temp Pulse Resp BP Pulse Ox 97.9 F 53 L 13 123/58 L 100 02/14/19 14:55 02/14/19 14:55 02/14/19 18:01 02/14/19 18:01 02/14/19 18:01 Intake & Output 02/12/19 02/13/19 02/14/19 23:59 23:59 23:59 Weight 93.44 kg General appearance: PRESENT: no acute distress, morbidly obese, well-developed Head exam: PRESENT: atraumatic, normocephalic Eye exam: PRESENT: conjunctiva pink, EOMI, PERRLA. ABSENT: scleral icterus Ear exam: PRESENT: normal external ear exam Mouth exam: PRESENT: moist, tongue midline Neck exam: ABSENT: carotid bruit, JVD, lymphadenopathy, thyromegaly Respiratory exam: PRESENT: decreased breath sounds, wheezes. ABSENT: rales, rhonchi Cardiovascular exam: PRESENT: RRR. ABSENT: diastolic murmur, rubs, systolic murmur Pulses: PRESENT: normal dorsalis pedis pul Vascular exam: PRESENT: normal capillary refill GI/Abdominal exam: PRESENT: normal bowel sounds, soft. ABSENT: distended, guarding, mass, organolmegaly, rebound, tenderness Rectal exam: PRESENT: deferred Extremities exam: PRESENT: full ROM. ABSENT: calf tenderness, clubbing, pedal edema Neurological exam: PRESENT: alert, awake, oriented to person, oriented to place, oriented to time, oriented to situation, CN II-XII grossly intact. ABSENT: motor sensory deficit Psychiatric exam: PRESENT: appropriate affect, normal mood. ABSENT: homicidal ideation, suicidal ideation Skin exam: PRESENT: dry, intact, rash - Under breast and under her pannus appear s to be yeast, warm. ABSENT: cyanosis Results Laboratory Results: 02/14/19 14:50 02/14/19 14:50 02/14/19 02/14/19 02/14/19 14:50 14:50 15:45 WBC 5.6 RBC 2.56 L Hgb 8.0 L Hct 23.7 L MCV 92 MCH 31.1 MCHC 33.7 RDW 15.9 H Plt Count 107 L Seg Neutrophils % 72.2 Lymphocytes % 14.7 Monocytes % 6.4 Eosinophils % 6.0 Basophils % 0.7 Absolute Neutrophils 4.0 Absolute Lymphocytes 0.8 Absolute Monocytes 0.4 Absolute Eosinophils 0.3 Absolute Basophils 0.0 Carbonic Acid 1.34 HCO3/H2CO3 Ratio 18:1 ABG pH 7.37 ABG pCO2 44.6 ABG pO2 187.0 H ABG HCO3 25.2 H ABG O2 Saturation 99.2 H ABG Base Excess -0.2 FiO2 60% Sodium 131.3 L Potassium 6.1 H* Chloride 98 Carbon Dioxide 24 Anion Gap 9 BUN 72 H Creatinine 4.31 H Est GFR ( Amer) 12 L Est GFR (Non-Af Amer) 10 L Glucose 116 H Calcium 7.4 L Total Bilirubin 0.5 AST 22 ALT 21 Alkaline Phosphatase 53 Total Protein 5.8 L Albumin 3.0 L 02/14/19 02/14/19 14:50 14:50 Creatine Kinase 112 CK-MB (CK-2) 2.05 Troponin I < 0.012 Impressions: Chest X-Ray 02/14/19 14:45 IMPRESSION: Questionable small left pleural effusion. Breast Ultrasound 02/14/19 17:51 IMPRESSION: No evidence of abscess. Thickened scan and breast tissue edema is consistent with cellulitis/mastitis. Assessment and Plan - Diagnosis (1) COPD exacerbation Is this a current diagnosis for this admission?: Yes Plan: Will treat with steroids and given the patient's A. fib will use nebulizers judiciously. (2) Acute respiratory failure with hypoxia Is this a current diagnosis for this admission?: Yes Plan: As per #1 (3) Acute kidney injury Is this a current diagnosis for this admission?: Yes Plan: We will hydrate and repeat chemistry in the a.m. Baseline creatinine appears to be in the 2 range. Appears to be a combination of the patient's recent diarrhea as well as a doubling her Lasix. Will gently hydrate overnight. (4) Cellulitis of left breast Is this a current diagnosis for this admission?: Yes Plan: Cover with antibiotic coverage. Blood cultures are pending. (5) Hyperkalemia Is this a current diagnosis for this admission?: Yes Plan: SPS given in the emergency department. Will repeat chemistries and follow. (6) Acute on chronic renal failure Qualifiers: Acute renal failure type: unspecified Chronic kidney disease stage: stage 3 (moderate) Qualified Code(s): N17.9 - Acute kidney failure, unspecified; N18.3 - Chronic kidney disease, stage 3 (moderate) Is this a current diagnosis for this admission?: Yes Plan: As per ROSA (7) Anemia of chronic disease Is this a current diagnosis for this admission?: Yes Plan: We will repeat CBC in the a.m. (8) Atrial fibrillation Qualifiers: Atrial fibrillation type: paroxysmal Qualified Code(s): I48.0 - Paroxysmal atrial fibrillation Is this a current diagnosis for this admission?: Yes Plan: Rate controlled at this time. (9) Diabetes mellitus type 2 in obese Is this a current diagnosis for this admission?: Yes Plan: Place patient on sliding scale coverage and resume home medications once reconciled able. (10) Morbid obesity with BMI of 45.0-49.9, adult Is this a current diagnosis for this admission?: Yes - Time Time Spent with patient: 35 or more minutes Medications reviewed and adjusted accordingly: Yes Anticipated discharge: Home Within: within 72 hours Disposition: The patient is a DO NOT RESUSCITATE DO NOT INTUBATE. Pending patient's sympto matology and diagnostic findings will reevaluate as needed.
[2019-02-14 19:36] LABS: ANION GAP 11 (5-19); BLOOD UREA NITROGEN 75 mg/dL (7-20); CALCIUM 7.8 mg/dL (8.4-10.2); CARBON DIOXIDE 26 mmol/L (22-30); CHLORIDE 94 mmol/L (98-107); GLUCOSE 167 mg/dL (75-110); POTASSIUM 5.6 mmol/L (3.6-5.0); SODIUM 130.8 mmol/L (137-145)
[2019-02-14] MEDS ORDERED: MONTELUKAST SODIUM 10 MG TABLET PO ONE (20:00)
[2019-02-14] MEDS ORDERED: PREDNISONE 20 MG TABLET PO ONE (20:00)
[2019-02-14] MEDS: NYSTATIN/TRIAMCIN CREAM 15 GM TP SCH (21:16)
[2019-02-14] MEDS: HEPARIN SOD (PORCINE) 5,000 UNIT/ML 1 ML SYRINGE SUBCUT SCH (21:16)
[2019-02-14] MEDS: INSULIN LISPRO 100 UNIT/ML 3 ML VIAL SUBCUT SCH (21:21)
[2019-02-14] MEDS: ACETAMINOPHEN 325 MG TABLET PO PRN (23:26)
[2019-02-15] MEDS: ACETAMINOPHEN 325 MG TABLET PO PRN ×2 (04:03→21:30)
[2019-02-15 05:24] LABS: HEMATOCRIT 22.6 % (36.0-47.0); MEAN CORPUSCULAR HEMOGLOBIN 30.9 pg (27.0-33.4); MEAN CORPUSCULAR HGB CONC 33.8 g/dL (32.0-36.0); MEAN CORPUSCULAR VOLUME 91 fl (80-97); RED BLOOD COUNT 2.48 10^6/uL (3.72-5.28); RED CELL DISTRIBUTION WIDTH 15.1 % (11.5-14.0); WHITE BLOOD COUNT 3.2 10^3/uL (4.0-10.5)
[2019-02-15 05:29] LABS: HEMOGLOBIN 7.6 g/dL (12.0-15.5)
[2019-02-15 05:32] LABS: ANION GAP 10 (5-19); BLOOD UREA NITROGEN 70 mg/dL (7-20); CALCIUM 7.7 mg/dL (8.4-10.2); CARBON DIOXIDE 22 mmol/L (22-30); CHLORIDE 97 mmol/L (98-107); GLUCOSE 220 mg/dL (75-110); PHOSPHORUS 6.5 mg/dL (2.5-4.5); SODIUM 129.1 mmol/L (137-145)
[2019-02-15 05:33] LABS: POTASSIUM 6.7 mmol/L (3.6-5.0)
[2019-02-15] MEDS: HEPARIN SOD (PORCINE) 5,000 UNIT/ML 1 ML SYRINGE SUBCUT SCH ×3 (05:37→21:32)
[2019-02-15 05:55] LABS: PLATELET COUNT 89 10^3/uL (150-450)
[2019-02-15] MEDS ORDERED: CALCIUM GLUCONATE 1,000 MG in DEXTROSE 5%-WATER 50 ML IV ONE (06:45)
[2019-02-15] MEDS ORDERED: SODIUM BICARBONATE 8.4% INJ 50 MEQ/50 ML DISP.SYRIN IV ONE ×2 (06:45→11:00)
[2019-02-15] MEDS ORDERED: SODIUM POLYSTYRENE SULFONATE 15 GM/60 ML PO ONE ×3 (06:45→11:00)
[2019-02-15] MEDS ORDERED: INSULIN REG, HUMAN 100 UNIT/ML 3 ML VIAL (PYX) SUBCUT ONE ×2 (06:45→11:00)
[2019-02-15] MEDS ORDERED: CALCIUM GLUCONATE 1000 MG/10 ML INJ IV ONE ×2 (10:00→11:00)
[2019-02-15] MEDS: PREDNISONE 20 MG TABLET PO SCH ×2 (10:57→17:04)
[2019-02-15] MEDS: NYSTATIN/TRIAMCIN CREAM 15 GM TP SCH ×4 (10:58→21:31)
[2019-02-15] MEDS ORDERED: ALBUTEROL SULFATE 0.083% NEB 2.5 MG/3 ML AMPUL NEB ONE ×2 (11:00)
[2019-02-15] MEDS: INSULIN LISPRO 100 UNIT/ML 3 ML VIAL SUBCUT SCH ×4 (11:06→21:36)
[2019-02-15] MEDS ORDERED: NORMAL SALINE 1000 ML 1,000 ML IV PRN (14:18)
[2019-02-15] MEDS ORDERED: SODIUM POLYSTYRENE SULFONATE 15 GM/60 ML PO SCH (14:30)
[2019-02-15] MEDS: ONDANSETRON 4 MG TAB.RAPDIS PO PRN (15:03)
[2019-02-15] MEDS: PATIROMER 8.4 GM SUSP PACKET PO SCH (17:01)
[2019-02-15] MEDS: MONTELUKAST SODIUM 10 MG TABLET PO SCH (17:04)
[2019-02-15] MEDS: CEFTRIAXONE 2 GM/D5W RTU 2 GM/50 ML RTUPB IV SCH (21:33)
[2019-02-15 22:16] LABS: ANION GAP 10 (5-19); BLOOD UREA NITROGEN 65 mg/dL (7-20); CALCIUM 7.9 mg/dL (8.4-10.2); CARBON DIOXIDE 28 mmol/L (22-30); CHLORIDE 95 mmol/L (98-107); GLUCOSE 206 mg/dL (75-110); POTASSIUM 5.7 mmol/L (3.6-5.0); SODIUM 132.5 mmol/L (137-145)
[2019-02-16] MEDS: ACETAMINOPHEN 325 MG TABLET PO PRN ×2 (02:45→07:51)
[2019-02-16 06:56] LABS: ABSOLUTE LYMPHOCYTES (AUTO) 0.3 10^3/uL (0.5-4.7); ABSOLUTE NEUT (AUTO) 2.3 10^3/uL (1.7-8.2); BASOPHILS % (AUTO) 0.3 % (0-2); EOSINOPHILS % (AUTO) 0.1 % (0-6); HEMATOCRIT 24.6 % (36.0-47.0); HEMOGLOBIN 8.2 g/dL (12.0-15.5); LYMPHOCYTES % (AUTO) 11.1 % (13-45); MEAN CORPUSCULAR HEMOGLOBIN 30.5 pg (27.0-33.4); MEAN CORPUSCULAR HGB CONC 33.4 g/dL (32.0-36.0); MEAN CORPUSCULAR VOLUME 92 fl (80-97); MONOCYTES % (AUTO) 1.5 % (3-13); RED BLOOD COUNT 2.69 10^6/uL (3.72-5.28); RED CELL DISTRIBUTION WIDTH 15.1 % (11.5-14.0); TOTAL CELLS COUNTED % (AUTO) 100 %; WHITE BLOOD COUNT 2.7 10^3/uL (4.0-10.5)
[2019-02-16 07:10] LABS: ANION GAP 9 (5-19); BLOOD UREA NITROGEN 65 mg/dL (7-20); CARBON DIOXIDE 26 mmol/L (22-30); CHLORIDE 98 mmol/L (98-107); GLUCOSE 293 mg/dL (75-110); POTASSIUM 5.3 mmol/L (3.6-5.0); SODIUM 133.1 mmol/L (137-145)
[2019-02-16] MEDS ORDERED: NITROGLYCERIN 0.4 MG/TAB 25 TAB/BOTTLE SL PRN (07:35)
[2019-02-16] MEDS ORDERED: HYDROXYZINE PAMOATE 50 MG CAPSULE PO PRN (07:35)
[2019-02-16] MEDS: HEPARIN SOD (PORCINE) 5,000 UNIT/ML 1 ML SYRINGE SUBCUT SCH ×3 (07:44→21:36)
[2019-02-16] MEDS: INSULIN LISPRO 100 UNIT/ML 3 ML VIAL SUBCUT SCH ×4 (07:47→21:35)
[2019-02-16 07:55] LABS: PLATELET COUNT 97 10^3/uL (150-450)
[2019-02-16] MEDS ORDERED: (PENDING PHARMACY ID) (Linaclotide [Linzess] 72 MCG) PO SCH (10:00)
[2019-02-16] MEDS: ISOSORBIDE MONONITRATE 60 MG TAB.ER.24H PO SCH (11:12)
[2019-02-16] MEDS: GABAPENTIN 300 MG CAPSULE PO SCH (11:12)
[2019-02-16] MEDS: OXYCODONE-ACETAMINOPHEN 5-325 MG TABLET PO PRN ×2 (11:12→18:46)
[2019-02-16] MEDS: METOPROLOL SUCCINATE 25 MG TAB.SR.24H PO SCH (11:13)
[2019-02-16] MEDS: ASPIRIN 81 MG TABLET, CHEWABLE PO SCH (11:13)
[2019-02-16] MEDS: PREDNISONE 20 MG TABLET PO SCH ×2 (11:13→18:44)
[2019-02-16] MEDS: CLOPIDOGREL BISULFATE 75 MG TABLET PO SCH (11:13)
[2019-02-16] MEDS: INSULIN GLARGINE,HUM.REC.ANLOG 1,000 UNIT/10 ML VIAL SUBCUT SCH ×2 (11:14→21:35)
[2019-02-16] MEDS: NYSTATIN/TRIAMCIN CREAM 15 GM TP SCH ×4 (11:15→21:36)
[2019-02-16] MEDS: EZETIMIBE 10 MG TABLET PO SCH (11:15)
[2019-02-16] MEDS ORDERED: FLUTICASONE/VILANTEROL 200-25 MCG/DOSE IH ONE (11:41)
--- NOTE | 2019-02-16 11:46 | PDOC PROGRESS REPORT ---
Subjective Progress Note for:: 02/16/19 Subjective:: The patient actually looks to be feeling better today. She complains of back and neck pain with headache. Reason For Visit: COPD EXACERBATION,ROSA Physical Exam Vital Signs: Temp Pulse Resp BP Pulse Ox 98.3 F 73 20 163/59 H 99 02/16/19 07:50 02/16/19 07:50 02/16/19 07:50 02/16/19 07:50 02/16/19 07:50 Intake & Output 02/15/19 02/16/19 02/17/19 06:59 06:59 06:59 Intake Total 580 3406 Balance 580 3406 Weight 93.4 kg 93.4 kg General appearance: PRESENT: cooperative, mild distress, morbidly obese, well-de veloped - But ill appearing 73-year-old female Head exam: PRESENT: normocephalic Eye exam: PRESENT: conjunctiva pale. ABSENT: scleral icterus Respiratory exam: PRESENT: rales - Faint at bases, symmetrical, unlabored. ABSENT: accessory muscle use, rhonchi, wheezes Cardiovascular exam: PRESENT: RRR, +S1, +S2, systolic murmur GI/Abdominal exam: PRESENT: normal bowel sounds, soft, tenderness - Still with some discomfort especially when getting close to the cellulitic area under the on the left, other - Protuberant abdomen Rectal exam: PRESENT: deferred Neurological exam: PRESENT: alert, awake, oriented to person, oriented to place, oriented to situation Psychiatric exam: PRESENT: agitated, anxious, flat affect Focused psych exam: ABSENT: delusional, restlessness Skin exam: PRESENT: erythema - On the left breast, warm Results Laboratory Results: 02/16/19 05:23 02/16/19 05:23 02/15/19 02/15/19 02/16/19 15:02 21:45 05:23 WBC 2.7 L RBC 2.69 L Hgb 8.2 L Hct 24.6 L MCV 92 MCH 30.5 MCHC 33.4 RDW 15.1 H Plt Count 97 L Seg Neutrophils % 87.0 H Lymphocytes % 11.1 L Monocytes % 1.5 L Eosinophils % 0.1 Basophils % 0.3 Absolute Neutrophils 2.3 Absolute Lymphocytes 0.3 L Absolute Monocytes 0.0 L Absolute Eosinophils 0.0 Absolute Basophils 0.0 Sodium 132.5 L Potassium 6.0 H* 5.7 H Chloride 95 L Carbon Dioxide 28 Anion Gap 10 BUN 65 H Creatinine 3.89 H Est GFR ( Amer) 14 L Est GFR (Non-Af Amer) 11 L Glucose 206 H Calcium 7.9 L Magnesium 02/16/19 05:23 WBC RBC Hgb Hct MCV MCH MCHC RDW Plt Count Seg Neutrophils % Lymphocytes % Monocytes % Eosinophils % Basophils % Absolute Neutrophils Absolute Lymphocytes Absolute Monocytes Absolute Eosinophils Absolute Basophils Sodium 133.1 L Potassium 5.3 H Chloride 98 Carbon Dioxide 26 Anion Gap 9 BUN 65 H Creatinine 3.50 H Est GFR ( Amer) 16 L Est GFR (Non-Af Amer) 13 L Glucose 293 H Calcium 8.0 L Magnesium 2.2 02/14/19 02/14/19 14:50 14:50 Creatine Kinase 112 CK-MB (CK-2) 2.05 Troponin I < 0.012 Impressions: Chest X-Ray 02/14/19 14:45 IMPRESSION: Questionable small left pleural effusion. Breast Ultrasound 02/14/19 17:51 IMPRESSION: No evidence of abscess. Thickened scan and breast tissue edema is consistent with cellulitis/mastitis. Assessment and Plan - Diagnosis (1) Hyperkalemia Is this a current diagnosis for this admission?: Yes Plan: Significantly improved. There is no more Kayexalate available. Continue Veltassa. Continue to monitor renal function and electrolytes. (2) Acute renal failure superimposed on stage 3 chronic kidney disease Qualifiers: Acute renal failure type: unspecified Qualified Code(s): N17.9 - Acute kidney failure, unspecified; N18.3 - Chronic kidney disease, stage 3 (moderate) Is this a current diagnosis for this admission?: Yes Plan: We will have Dr. Steinberg see the patient. She appears to be responding to gentle fluids. Continue gentle hydration. (3) Acute respiratory failure with hypoxia Is this a current diagnosis for this admission?: Yes Plan: Continue oxygen supplementation. See below as well. (4) Cellulitis of left breast Is this a current diagnosis for this admission?: Yes Plan: Continue antibiotic therapy. (5) COPD exacerbation Is this a current diagnosis for this admission?: Yes Plan: I will substitute Brio Ellipta for the patient's Advair. She has as needed nebulizers available. (6) Anemia of chronic renal failure, stage 3 (moderate) Is this a current diagnosis for this admission?: Yes Plan: Continue to monitor hemoglobin. Hemoglobin is slightly better today. (7) Atrial fibrillation Qualifiers: Atrial fibrillation type: paroxysmal Qualified Code(s): I48.0 - Paroxysmal atrial fibrillation Is this a current diagnosis for this admission?: Yes Plan: Currently in sinus rhythm. (8) Diabetes mellitus type 2 in obese Is this a current diagnosis for this admission?: Yes Plan: The patient was on Lantus 25 units in the morning as well as 50 units at night. She was also on Jardiance. I will resume lower dose Lantus to start. Continue to monitor glucose Accu-Cheks (9) Morbid obesity with BMI of 40.0-44.9, adult Is this a current diagnosis for this admission?: Yes Plan: BMI is 41.6. Her obesity is a risk factor with her underlying comorbidities including cardiac and pulmonary. There is likely a component of obesity hypoventilation syndrome as well. - Time Time Spent with patient: 15-24 minutes Medications reviewed and adjusted accordingly: Yes
[2019-02-16] MEDS: LEVALBUTEROL HCL NEB 1.25 MG/3 ML AMPUL NEB PRN (13:55)
[2019-02-16] MEDS: FLUTICASONE/VILANTEROL 200-25 MCG/DOSE IH SCH (14:17)
[2019-02-16] MEDS: PATIROMER 8.4 GM SUSP PACKET PO SCH (16:45)
[2019-02-16] MEDS: MONTELUKAST SODIUM 10 MG TABLET PO SCH (18:44)
[2019-02-16] MEDS: ATORVASTATIN CALCIUM 40 MG TABLET PO SCH (21:36)
[2019-02-16] MEDS: CEFTRIAXONE 2 GM/D5W RTU 2 GM/50 ML RTUPB IV SCH (21:36)
[2019-02-17] MEDS: OXYCODONE-ACETAMINOPHEN 5-325 MG TABLET PO PRN ×3 (01:38→17:46)
[2019-02-17] MEDS: HEPARIN SOD (PORCINE) 5,000 UNIT/ML 1 ML SYRINGE SUBCUT SCH ×3 (06:16→22:01)
[2019-02-17] MEDS: NORMAL SALINE 1000 ML 1,000 ML IV PRN ×3 (06:25→22:21)
[2019-02-17 06:34] LABS: HEMATOCRIT 23.6 % (36.0-47.0); MEAN CORPUSCULAR HEMOGLOBIN 31.1 pg (27.0-33.4); MEAN CORPUSCULAR HGB CONC 34.1 g/dL (32.0-36.0); MEAN CORPUSCULAR VOLUME 91 fl (80-97); PLATELET COUNT 100 10^3/uL (150-450); RED BLOOD COUNT 2.59 10^6/uL (3.72-5.28); RED CELL DISTRIBUTION WIDTH 15.5 % (11.5-14.0); WHITE BLOOD COUNT 3.8 10^3/uL (4.0-10.5)
[2019-02-17 06:54] LABS: ANION GAP 5 (5-19); BLOOD UREA NITROGEN 61 mg/dL (7-20); CALCIUM 7.9 mg/dL (8.4-10.2); CARBON DIOXIDE 26 mmol/L (22-30); CHLORIDE 102 mmol/L (98-107); GLUCOSE 188 mg/dL (75-110); SODIUM 132.9 mmol/L (137-145)
[2019-02-17] MEDS: INSULIN LISPRO 100 UNIT/ML 3 ML VIAL SUBCUT SCH ×4 (07:29→21:33)
[2019-02-17] MEDS: INSULIN GLARGINE,HUM.REC.ANLOG 1,000 UNIT/10 ML VIAL SUBCUT SCH ×2 (10:16→21:33)
[2019-02-17] MEDS: CLOPIDOGREL BISULFATE 75 MG TABLET PO SCH (10:18)
[2019-02-17] MEDS: FLUTICASONE/VILANTEROL 200-25 MCG/DOSE IH SCH (10:18)
[2019-02-17] MEDS: PREDNISONE 20 MG TABLET PO SCH ×2 (10:18→17:45)
[2019-02-17] MEDS: EZETIMIBE 10 MG TABLET PO SCH (10:20)
[2019-02-17] MEDS: ISOSORBIDE MONONITRATE 60 MG TAB.ER.24H PO SCH (10:20)
[2019-02-17] MEDS: METOPROLOL SUCCINATE 25 MG TAB.SR.24H PO SCH (10:20)
[2019-02-17] MEDS: ASPIRIN 81 MG TABLET, CHEWABLE PO SCH (10:20)
[2019-02-17] MEDS: GABAPENTIN 300 MG CAPSULE PO SCH (10:20)
[2019-02-17] MEDS: NYSTATIN/TRIAMCIN CREAM 15 GM TP SCH ×4 (10:21→21:34)
--- NOTE | 2019-02-17 14:36 | PDOC PROGRESS REPORT ---
Subjective Progress Note for:: 02/15/19 Subjective:: The patient is feeling quite miserable. She complains of neck and left shoulder pain as well as abdominal pain. She complains of pain under the left breast and a general sense of unwellness. Reason For Visit: COPD EXACERBATION,ROSA Physical Exam Vital Signs: Temp Pulse Resp BP Pulse Ox 98.7 F 72 20 125/43 L 97 02/15/19 12:51 02/15/19 12:51 02/15/19 12:51 02/15/19 12:51 02/15/19 12:51 Intake & Output 02/14/19 02/15/19 02/16/19 06:59 06:59 06:59 Intake Total 580 Balance 580 Weight 93.4 kg General appearance: PRESENT: cooperative, mild distress - Mild to moderate distress, morbidly obese, well-developed Head exam: PRESENT: normocephalic Eye exam: PRESENT: conjunctiva pale. ABSENT: scleral icterus Mouth exam: PRESENT: dry mucosa, tongue midline Respiratory exam: PRESENT: decreased breath sounds - With poor inspiratory effort, symmetrical. ABSENT: rhonchi, wheezes Cardiovascular exam: PRESENT: irregular rhythm GI/Abdominal exam: PRESENT: diminished bowel sounds, distended, soft, tenderness - Diffuse nonfocal more on the left side of the abdomen., other - Large pendulous abdomen. ABSENT: guarding Rectal exam: PRESENT: deferred Extremities exam: PRESENT: other - There is nonfocal tenderness over the left trapezius muscle into the shoulder. There is no crepitation of the shoulder. There is good range of motion passively. The patient is quite weak overall but this is not focal to the left shoulder. Neurological exam: PRESENT: alert, awake, oriented to person, oriented to place, oriented to time, oriented to situation Psychiatric exam: PRESENT: anxious, appropriate affect - Affect reflects her current discomfort. ABSENT: agitated Focused psych exam: ABSENT: delusional, restlessness Skin exam: PRESENT: other - Tender skin under the left breast Results Laboratory Results: 02/15/19 04:58 02/15/19 04:58 02/14/19 02/14/19 02/14/19 14:50 14:50 15:45 WBC 5.6 RBC 2.56 L Hgb 8.0 L Hct 23.7 L MCV 92 MCH 31.1 MCHC 33.7 RDW 15.9 H Plt Count 107 L Seg Neutrophils % 72.2 Lymphocytes % 14.7 Monocytes % 6.4 Eosinophils % 6.0 Basophils % 0.7 Absolute Neutrophils 4.0 Absolute Lymphocytes 0.8 Absolute Monocytes 0.4 Absolute Eosinophils 0.3 Absolute Basophils 0.0 Carbonic Acid 1.34 HCO3/H2CO3 Ratio 18:1 ABG pH 7.37 ABG pCO2 44.6 ABG pO2 187.0 H ABG HCO3 25.2 H ABG O2 Saturation 99.2 H ABG Base Excess -0.2 FiO2 60% Sodium 131.3 L Potassium 6.1 H* Chloride 98 Carbon Dioxide 24 Anion Gap 9 BUN 72 H Creatinine 4.31 H Est GFR ( Amer) 12 L Est GFR (Non-Af Amer) 10 L Glucose 116 H Calcium 7.4 L Phosphorus Magnesium Total Bilirubin 0.5 AST 22 ALT 21 Alkaline Phosphatase 53 Total Protein 5.8 L Albumin 3.0 L 02/14/19 02/15/19 02/15/19 19:17 04:58 04:58 WBC 3.2 L RBC 2.48 L Hgb 7.6 L Hct 22.6 L MCV 91 MCH 30.9 MCHC 33.8 RDW 15.1 H Plt Count 89 L Seg Neutrophils % Lymphocytes % Monocytes % Eosinophils % Basophils % Absolute Neutrophils Absolute Lymphocytes Absolute Monocytes Absolute Eosinophils Absolute Basophils Carbonic Acid HCO3/H2CO3 Ratio ABG pH ABG pCO2 ABG pO2 ABG HCO3 ABG O2 Saturation ABG Base Excess FiO2 Sodium 130.8 L 129.1 L Potassium 5.6 H 6.7 H* D Chloride 94 L 97 L Carbon Dioxide 26 22 Anion Gap 11 10 BUN 75 H 70 H Creatinine 4.63 H 4.44 H Est GFR ( Amer) 11 L 12 L Est GFR (Non-Af Amer) 9 L 10 L Glucose 167 H 220 H Calcium 7.8 L 7.7 L Phosphorus 6.5 H Magnesium 2.2 Total Bilirubin AST ALT Alkaline Phosphatase Total Protein Albumin 02/14/19 02/14/19 14:50 14:50 Creatine Kinase 112 CK-MB (CK-2) 2.05 Troponin I < 0.012 Impressions: Chest X-Ray 02/14/19 14:45 IMPRESSION: Questionable small left pleural effusion. Breast Ultrasound 02/14/19 17:51 IMPRESSION: No evidence of abscess. Thickened scan and breast tissue edema is consistent with cellulitis/mastitis. Assessment and Plan - Diagnosis (1) Hyperkalemia Is this a current diagnosis for this admission?: Yes Plan: Serum potassium peaked at 6.7. She has received the last dose of Kayexalate in the hospital. I have started her on Veltassa. She has also been given insulin with glucose and bicarb as well as an albuterol treatment. Continue to monitor serum potassium. I will also increase IV fluids as her creatinine is twice her baseline. (2) Acute renal failure superimposed on stage 3 chronic kidney disease Qualifiers: Acute renal failure type: unspecified Qualified Code(s): N17.9 - Acute kidney failure, unspecified; N18.3 - Chronic kidney disease, stage 3 (moderate) Is this a current diagnosis for this admission?: Yes Plan: Acute kidney injury with a creatinine greater than 4. Normally she is between 2 and 3. This could be volume depletion. She will receive IV fluids and will monitor her closely given her underlying history of congestive heart failure. (3) Acute respiratory failure with hypoxia Is this a current diagnosis for this admission?: Yes Plan: She does have a history of COPD and congestive heart failure. Oxygen supplementation to keep saturation between 88 and 94%. (4) Cellulitis of left breast Is this a current diagnosis for this admission?: Yes Plan: Red and painful tissue under the left breast. The patient did have an ultrasound and this confirmed inflammatory changes without abscess. We will continue her current antibiotic regimen of ceftriaxone. Monitor closely for improvement. (5) COPD exacerbation Is this a current diagnosis for this admission?: Yes Plan: The patient is on Brio Ellipta with as needed Xopenex nebulizers. No steroids at this point. (6) Anemia of chronic renal failure, stage 3 (moderate) Is this a current diagnosis for this admission?: Yes Plan: Hemoglobin is only 7.6. If it continues to decline and she will need transfusion of packed red blood cells. (7) Atrial fibrillation Qualifiers: Atrial fibrillation type: paroxysmal Qualified Code(s): I48.0 - Paroxysmal atrial fibrillation Is this a current diagnosis for this admission?: Yes Plan: Good heart rate control on metoprolol. No change in regimen. (8) Diabetes mellitus type 2 in obese Is this a current diagnosis for this admission?: Yes Plan: Glucoses were high. We will need to increase Lantus. (9) Morbid obesity with BMI of 40.0-44.9, adult Is this a current diagnosis for this admission?: Yes Plan: Significant risk for comorbidities. I believe this is adding obesity hypoventilation to her already significant list of comorbidities.
[2019-02-17] MEDS: PATIROMER 8.4 GM SUSP PACKET PO SCH (16:39)
--- NOTE | 2019-02-17 17:06 | PDOC PROGRESS REPORT ---
Subjective Progress Note for:: 02/17/19 Subjective:: No adverse events overnight. No new complaints. Cellulitis of the left breast is improving. No fevers. Reason For Visit: COPD EXACERBATION,ROSA Physical Exam Vital Signs: Temp Pulse Resp BP Pulse Ox 97.7 F 59 L 19 141/47 H 98 02/17/19 11:17 02/17/19 14:00 02/17/19 13:23 02/17/19 11:17 02/17/19 13:23 Intake & Output 02/16/19 02/17/19 02/18/19 06:59 06:59 06:59 Intake Total 3406 827 980 Balance 3406 827 980 Weight 93.4 kg 95.5 kg General appearance: PRESENT: cooperative, mild distress, morbidly obese, well- developed - But ill appearing 73-year-old female Head exam: PRESENT: normocephalic Eye exam: PRESENT: conjunctiva pale. ABSENT: scleral icterus Respiratory exam: PRESENT: Diminished breath sounds, symmetrical, unlabored. ABSENT: accessory muscle use, rhonchi, wheezes Cardiovascular exam: PRESENT: RRR, +S1, +S2, systolic murmur GI/Abdominal exam: PRESENT: normal bowel sounds, soft, tenderness -minimal of the left breast, other - Protuberant abdomen Rectal exam: PRESENT: deferred Neurological exam: PRESENT: alert, awake, oriented to person, oriented to place, oriented to situation Psychiatric exam: PRESENT: agitated, anxious, flat affect Focused psych exam: ABSENT: delusional, restlessness Skin exam: PRESENT: erythema -diminished on the left breast, warm Results Laboratory Results: 02/17/19 06:00 02/17/19 06:00 02/17/19 02/17/19 06:00 06:00 WBC 3.8 L RBC 2.59 L Hgb 8.0 L Hct 23.6 L MCV 91 MCH 31.1 MCHC 34.1 RDW 15.5 H Plt Count 100 L Sodium 132.9 L Potassium 5.0 Chloride 102 Carbon Dioxide 26 Anion Gap 5 BUN 61 H Creatinine 2.65 H Est GFR ( Amer) 21 L Est GFR (Non-Af Amer) 18 L Glucose 188 H Calcium 7.9 L 02/14/19 02/14/19 14:50 14:50 Creatine Kinase 112 CK-MB (CK-2) 2.05 Troponin I < 0.012 Impressions: Chest X-Ray 02/14/19 14:45 IMPRESSION: Questionable small left pleural effusion. Breast Ultrasound 02/14/19 17:51 IMPRESSION: No evidence of abscess. Thickened scan and breast tissue edema is consistent with cellulitis/mastitis. Assessment and Plan - Diagnosis (1) Acute renal failure superimposed on stage 3 chronic kidney disease Qualifiers: Acute renal failure type: unspecified Qualified Code(s): N17.9 - Acute kidney failure, unspecified; N18.3 - Chronic kidney disease, stage 3 (moderate) Is this a current diagnosis for this admission?: Yes Plan: Improving with IV fluids, creatinine is closer to baseline (2) Anemia of chronic renal failure, stage 3 (moderate) Is this a current diagnosis for this admission?: Yes Plan: Hemoglobin stable at 8. (3) Cellulitis of left breast Is this a current diagnosis for this admission?: Yes Plan: Improving on Rocephin, cultures are pending (4) Hyperkalemia Is this a current diagnosis for this admission?: Yes Plan: Resolved, patiromer stopped (5) Morbid obesity with BMI of 40.0-44.9, adult Is this a current diagnosis for this admission?: Yes Plan: Significant risk for comorbidities. I believe this is adding obesity hypoventilation to her already significant list of comorbidities. (6) Acute respiratory failure with hypoxia Is this a current diagnosis for this admission?: Yes Plan: She does have a history of COPD and congestive heart failure. Oxygen supplementation to keep saturation between 88 and 94%. She told me she is on oxygen at home (7) COPD exacerbation Is this a current diagnosis for this admission?: Yes Plan: The patient is on Brio Ellipta with as needed Xopenex nebulizers. No steroids at this point. (8) Diabetes mellitus type 2 in obese Is this a current diagnosis for this admission?: Yes Plan: Currently on Lantus and a sliding scale. - Time Time Spent with patient: 25-34 minutes
[2019-02-17] MEDS: MONTELUKAST SODIUM 10 MG TABLET PO SCH (17:46)
--- NOTE | 2019-02-17 17:56 | PDOC CONSULTATION ---
Consultation Consult Date: 02/17/19 Consult reason:: Acute on chronic kidney disease. History of Present Illness Admission Date/PCP: 02/14/19 18:08 DANI PANDA DO History of Present Illness: PRECIOUS BURCH is a 73 year old female with a past medical history of chronic long-standing poorly controlled complicated diabetes mellitus, CKD stage IV with a base creatinine of 2.5,chronic obstructive pulmonary disease presented to the emergency department due to shortness of breath. Evaluations in the ER revealed that she possibly had exacerbation of COPD. Chest x-ray did not show overt features of congestive heart failure. Reviewed the echocardiogram that she had done earlier in January that had shown that she had preserved LV ejection fraction with diastolic dysfunction and moderate pulmonary hypertension.Additionally labs show she was anemic with a hemoglobin of 8. Her chemistries done showed BUN/creatinine was 70/4.3 potassium of 6.1. Latest labs on review shows that her BUN/creatinine is improved to 65/3.5 and potassium is 5.3. Besides all of the above, the patient was complaining of left breast pain was found to have appearance of cellulitis as well as yeast under the breast. Past Medical History Cardiac Medical History: Reports: Coronary Artery Disease - [facility] 2001, Hyperlipidemia, Hypertension-primary, Myocardial Infarction Denies: Atrial Fibrillation, DVT, Pulmonary Embolism Pulmonary Medical History: Reports: Asthma, Bronchitis, Chronic Obstructive Pulmonary Disease (COPD), Pneumonia, Respiratory Failure, Sleep Apnea - no cpap insurance does not cover Denies: Tuberculosis Neurological Medical History: Denies: Seizures Endocrine Medical History: Reports: Diabetes Mellitus Type 2 - DX [place] 1994 Denies: Diabetes Mellitus Type 1, Hyperthyroidism, Hypothyroidism Renal/ Medical History: Reports: Chronic Kidney Disease Stage IV Denies: Benign Prostatic Hyperplasia GI Medical History: Denies: Cirrhosis, Gastroesophageal Reflux Disease, Hepatitis Musculoskeltal Medical History: Reports: Arthritis Denies: Gout, Rheumatoid Arthritis, Systemic Lupus Erythematosus Skin Medical History: Denies: Eczema, Psoriasis Psychiatric Medical History: Reports: Depression Denies: Bipolar Disorder Hematology Medical History: Reports Anemia Past Surgical History Past Surgical History: Reports: Cardiac Catheterization, Section, Cholecystectomy, Coronary Stent, Gastric Bypass Surgery - 2001, Hysterectomy, Tubal Ligation Social History Lives with: Family Smoking Status: Former Smoker Frequency of Alcohol Use: None Hx Recreational Drug Use: No Drugs: None Hx Prescription Drug Abuse: No - Advance Directive Resuscitation Status: Do Not Resuscitate Family History Parental Family History Reviewed: Yes - Negative for ESRD. Children Family History Reviewed: No Sibling(s) Family History Reviewed.: No Medication/Allergy Home Medications: Albuterol Sulfate [Proair HFA Inhalation Aerosol 8.5 gm MDI] 2 puff IH Q8HP PRN 01/28/19 Aspirin [Aspirin 81 mg Chewable Tablet] 81 mg PO DAILY 01/28/19 Clopidogrel Bisulfate [Plavix 75 mg Tablet] 75 mg PO DAILY 01/28/19 Diphenhydramine HCl [Allergy Relief] 25 mg PO QHS 01/28/19 Ezetimibe [Zetia 10 mg Tablet] 10 mg PO DAILY 01/28/19 Fenofibrate 160 mg PO DAILY 01/28/19 Fluticasone/Salmeterol [Advair 250-50 Diskus 14 Dose/Diskus] 1 inh IH Q12 01/28/19 Furosemide [Lasix 40 mg Tablet] 40 mg PO BID 01/28/19 Gabapentin [Neurontin] 600 mg PO Q12 01/28/19 Isosorbide Mononitrate [Imdur 60 mg Tablet.er] 60 mg PO DAILY 01/28/19 Linaclotide [Linzess] 72 mcg PO DAILY 01/28/19 Metoprolol Succinate [Toprol Xl 25 mg Tab.sr] 25 mg PO DAILY 01/28/19 Montelukast Sodium [Singulair 10 mg Tablet] 10 mg PO QPM 01/28/19 Nitroglycerin [Nitrostat 0.4 mg (1/150 Gr) Tabs 25/Bottle] 1 tab SL Q5MP PRN 01/28/19 Omeprazole 40 mg PO BID 01/28/19 Ondansetron [Ondansetron Odt] 8 mg PO Q4HP PRN 01/28/19 Rosuvastatin Calcium [Crestor] 40 mg PO QHS 01/28/19 Sitagliptin Phosphate [Januvia] 100 mg PO DAILY 01/28/19 Hydroxyzine Pamoate [Vistaril 50 mg Capsule] 50 mg PO TIDP PRN 02/15/19 Insulin Glargine,Hum.rec.anlog [Basaglar Kwikpen U-100] 25 unit SQ DAILY 02/15/19 Insulin Glargine,Hum.rec.anlog [Basaglar Kwikpen U-100] 50 units SQ QHS 02/15/19 Oxycodone HCl/Acetaminophen [Endocet 5-325 Tablet] 1 each PO Q6HP PRN 02/15/19 Telmisartan [Micardis 20 mg Tablet] 20 mg PO DAILY 02/15/19 Allergies/Adverse Reactions: amoxicillin trihydrate [From Augmentin] Allergy (Severe, Verified 01/06/19 14:12) stomach cramps, n and v, rash butalbital [From Fiorinal] Allergy (Unknown, Verified 01/06/19 14:12) rash metformin HCl [From Glucophage] Allergy (Unknown, Verified 01/06/19 14:12) rash Potassium Clavulanate * [From Augmentin] Adverse Reaction (Unknown, Verified 01/06/19 14:12) nausea, vomit, epig pain Review of Systems Constitutional: PRESENT: fatigue, weakness. ABSENT: fever(s), headache(s), night sweats Ears: ABSENT: hearing changes Nose, Mouth, and Throat: ABSENT: mouth pain, sore throat Cardiovascular: PRESENT: chest pain, dyspnea on exertion, edema. ABSENT: orthropnea Respiratory: PRESENT: cough, dyspnea. ABSENT: hemoptysis Gastrointestinal: PRESENT: bloating, constipation, nausea, vomiting. ABSENT: abdominal pain Genitourinary: ABSENT: dysuria, hematuria Integumentary: ABSENT: erythema, lesions, pruritus, rash Neurological: ABSENT: abnormal movements, confusion, convulsions, focal weakness Psychiatric: ABSENT: anxiety Hematologic/Lymphatic: ABSENT: easy bruising, lymphadenopathy Physical Exam Vital Signs: Temp Pulse Resp BP Pulse Ox 98.9 F 66 22 H 148/60 H 100 02/17/19 16:14 02/17/19 16:14 02/17/19 16:14 02/17/19 16:14 02/17/19 16:14 Intake & Output 02/16/19 02/17/19 02/18/19 06:59 06:59 06:59 Intake Total 3406 827 980 Balance 3406 827 980 Weight 93.4 kg 95.5 kg General appearance: PRESENT: no acute distress Eye exam: PRESENT: conjunctiva pale, EOMI, PERRLA Mouth exam: PRESENT: moist, neck supple Neck exam: ABSENT: lymphadenopathy, meningismus, tenderness, thyromegaly, tracheal deviation Respiratory exam: PRESENT: clear to auscultation cheli, decreased breath sounds. ABSENT: crackles, rhonchi Cardiovascular exam: PRESENT: +S1, +S2, systolic murmur GI/Abdominal exam: PRESENT: distended, normal bowel sounds, soft. ABSENT: organomegaly, tenderness Extremities exam: PRESENT: +1 edema Neurological exam: PRESENT: alert, awake, oriented to person, oriented to place, oriented to time Psychiatric exam: PRESENT: appropriate affect Skin exam: ABSENT: cyanosis, mottled Results Laboratory Results: 02/17/19 06:00 02/17/19 06:00 02/17/19 02/17/19 06:00 06:00 WBC 3.8 L RBC 2.59 L Hgb 8.0 L Hct 23.6 L MCV 91 MCH 31.1 MCHC 34.1 RDW 15.5 H Plt Count 100 L Sodium 132.9 L Potassium 5.0 Chloride 102 Carbon Dioxide 26 Anion Gap 5 BUN 61 H Creatinine 2.65 H Est GFR ( Amer) 21 L Est GFR (Non-Af Amer) 18 L Glucose 188 H Calcium 7.9 L 02/14/19 02/14/19 14:50 14:50 Creatine Kinase 112 CK-MB (CK-2) 2.05 Troponin I < 0.012 Impressions: Chest X-Ray 02/14/19 14:45 IMPRESSION: Questionable small left pleural effusion. Breast Ultrasound 02/14/19 17:51 IMPRESSION: No evidence of abscess. Thickened scan and breast tissue edema is consistent with cellulitis/mastitis. Assessment & Plan - Diagnosis (1) Acute kidney injury Is this a current diagnosis for this admission?: Yes Plan: She has had AK I on top of underlying CKD stage IV. This resulted in a creatinine of 4+ and potassium of 6+ in on initial presentation which has been corrected and currently her creatinine is down to 2.5 and potassium is 5.3 r espectively. Continue current lines of management.Advised to follow up with Dr Serra in our office 2-3 weeks post discharge with labs. (2) Anemia of chronic renal failure, stage 3 (moderate) Is this a current diagnosis for this admission?: Yes Plan: Get iron studies and consider starting on erythropoietin. (3) Cellulitis of left breast Is this a current diagnosis for this admission?: Yes Plan: On appropriate treatment as per hospitalist. (4) Hyperkalemia Is this a current diagnosis for this admission?: Yes Plan: Much improved. Advised on appropriate low potassium dietary modifications on discharge. (5) Morbid obesity with BMI of 40.0-44.9, adult Is this a current diagnosis for this admission?: Yes Plan: Status quo (6) Respiratory distress Plan: Much improved on current management. (7) CHF (congestive heart failure) Qualifiers: Heart failure type: unspecified Heart failure chronicity: acute on chronic Qualified Code(s): I50.9 - Heart failure, unspecified Plan: Heart failure with preserved ejection fraction. Presently compensated. (8) Diabetes mellitus type 2 in obese Is this a current diagnosis for this admission?: Yes Plan: Advised the need for tight control. She is got a complicated multiple endorgan damaged diabetic status unfortunately. 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
[2019-02-17] MEDS: ATORVASTATIN CALCIUM 40 MG TABLET PO SCH (21:33)
[2019-02-17] MEDS: CEFTRIAXONE 2 GM/D5W RTU 2 GM/50 ML RTUPB IV SCH (21:34)
[2019-02-17 23:52] LABS: APPEARANCE,URINE CLEAR; BILIRUBIN,URINE NEGATIVE (NEGATIVE); COLOR,URINE YELLOW; GLUCOSE, URINE 150 mg/dL (NEGATIVE); KETONES,URINE NEGATIVE (NEGATIVE); LEUKOCYTE ESTERASE,URINE MODERATE (NEGATIVE); NITRITE,URINE NEGATIVE (NEGATIVE); PROTEIN,URINE 30 mg/dL (NEGATIVE); URINE SPECIFIC GRAVITY 1.011; UROBILINOGEN,URINE NEGATIVE mg/dL (<2.0)
[2019-02-18] MEDS: OXYCODONE-ACETAMINOPHEN 5-325 MG TABLET PO PRN ×3 (01:24→17:23)
[2019-02-18 05:13] LABS: ABSOLUTE RETICS # 0.072 10^6/uL (0.028-0.122); HEMATOCRIT 25.5 % (36.0-47.0); HEMOGLOBIN 8.6 g/dL (12.0-15.5); MEAN CORPUSCULAR HEMOGLOBIN 30.9 pg (27.0-33.4); MEAN CORPUSCULAR HGB CONC 33.6 g/dL (32.0-36.0); MEAN CORPUSCULAR VOLUME 92 fl (80-97); PLATELET COUNT 116 10^3/uL (150-450); RED BLOOD COUNT 2.77 10^6/uL (3.72-5.28); RED CELL DISTRIBUTION WIDTH 15.1 % (11.5-14.0); RETICULOCYTE COUNT (AUTO) 2.61 % (0.66-2.85); WHITE BLOOD COUNT 5.9 10^3/uL (4.0-10.5)
[2019-02-18 05:33] LABS: ANION GAP 8 (5-19); BLOOD UREA NITROGEN 55 mg/dL (7-20); CARBON DIOXIDE 25 mmol/L (22-30); CHLORIDE 105 mmol/L (98-107); GLUCOSE 169 mg/dL (75-110); POTASSIUM 4.9 mmol/L (3.6-5.0); SODIUM 138.4 mmol/L (137-145)
[2019-02-18 06:37] LABS: FOLATE 5.83 ng/mL (>2.76)
[2019-02-18] MEDS: HEPARIN SOD (PORCINE) 5,000 UNIT/ML 1 ML SYRINGE SUBCUT SCH ×3 (06:56→22:31)
[2019-02-18] MEDS: INSULIN LISPRO 100 UNIT/ML 3 ML VIAL SUBCUT SCH ×4 (07:26→22:41)
[2019-02-18] MEDS: METOPROLOL SUCCINATE 25 MG TAB.SR.24H PO SCH (10:27)
[2019-02-18] MEDS: CLOPIDOGREL BISULFATE 75 MG TABLET PO SCH (10:27)
[2019-02-18] MEDS: ISOSORBIDE MONONITRATE 60 MG TAB.ER.24H PO SCH (10:27)
[2019-02-18] MEDS: ASPIRIN 81 MG TABLET, CHEWABLE PO SCH (10:27)
[2019-02-18] MEDS: PREDNISONE 20 MG TABLET PO SCH ×2 (10:27→17:23)
[2019-02-18] MEDS: GABAPENTIN 300 MG CAPSULE PO SCH (10:27)
[2019-02-18] MEDS: INSULIN GLARGINE,HUM.REC.ANLOG 1,000 UNIT/10 ML VIAL SUBCUT SCH ×2 (10:28→22:41)
[2019-02-18] MEDS: NYSTATIN/TRIAMCIN CREAM 15 GM TP SCH ×4 (10:29→22:32)
[2019-02-18] MEDS: FLUTICASONE/VILANTEROL 200-25 MCG/DOSE IH SCH (10:30)
[2019-02-18] MEDS: EZETIMIBE 10 MG TABLET PO SCH (10:30)
[2019-02-18] MEDS: NORMAL SALINE 1000 ML 1,000 ML IV PRN ×2 (14:28→22:31)
[2019-02-18] MEDS ORDERED: AMLODIPINE BESYLATE 2.5 MG TABLET PO SCH (15:15)
--- NOTE | 2019-02-18 16:22 | PDOC PROGRESS REPORT ---
Subjective Progress Note for:: 02/18/19 Subjective:: No adverse events overnight. No new complaints. Cellulitis of the left breast is improving. No fevers. Eating and drinking without difficulty. Reason For Visit: COPD EXACERBATION,ROSA Physical Exam Vital Signs: Temp Pulse Resp BP Pulse Ox 98.3 F 60 18 163/64 H 100 02/18/19 11:04 02/18/19 15:29 02/18/19 11:04 02/18/19 08:31 02/18/19 11:04 Intake & Output 02/17/19 02/18/19 02/19/19 06:59 06:59 06:59 Intake Total 827 3688 Balance 827 3688 Weight 95.5 kg 101.1 kg General appearance: PRESENT: cooperative, mild distress, morbidly obese, well- developed - But ill appearing 73-year-old female Head exam: PRESENT: normocephalic Eye exam: PRESENT: conjunctiva pale. ABSENT: scleral icterus Respiratory exam: PRESENT: Diminished breath sounds, symmetrical, unlabored. ABSENT: accessory muscle use, rhonchi, wheezes Cardiovascular exam: PRESENT: RRR, +S1, +S2, systolic murmur GI/Abdominal exam: PRESENT: normal bowel sounds, soft, tenderness -minimal of the left breast, other - Protuberant abdomen Rectal exam: PRESENT: deferred Neurological exam: PRESENT: alert, awake, oriented to person, oriented to place, oriented to situation Psychiatric exam: PRESENT: agitated, anxious, flat affect Focused psych exam: ABSENT: delusional, restlessness Skin exam: PRESENT: erythema -essentially resolved on the left breast Results Laboratory Results: 02/18/19 04:42 02/18/19 04:42 02/17/19 02/18/19 02/18/19 23:35 04:42 04:42 WBC 5.9 RBC 2.77 L Hgb 8.6 L Hct 25.5 L MCV 92 MCH 30.9 MCHC 33.6 RDW 15.1 H Plt Count 116 L Retic Count (auto) 2.61 Absolute Retic 0.072 Sodium 138.4 Potassium 4.9 Chloride 105 Carbon Dioxide 25 Anion Gap 8 BUN 55 H Creatinine 2.07 H Est GFR ( Amer) 29 L Est GFR (Non-Af Amer) 24 L Glucose 169 H Calcium 8.0 L Iron 71.0 TIBC 301 % Saturation 24 Ferritin 308.00 H Vitamin B12 445.0 Folate 5.83 Urine Color YELLOW Urine Appearance CLEAR Urine pH 6.0 Ur Specific [place] 1.011 Urine Protein 30 H Urine Glucose (UA) 150 H Urine Ketones NEGATIVE Urine Blood NEGATIVE Urine Nitrite NEGATIVE Ur Leukocyte Esterase MODERATE H Urine WBC (Auto) 12 Urine RBC (Auto) 1 02/14/19 02/14/19 14:50 14:50 Creatine Kinase 112 CK-MB (CK-2) 2.05 Troponin I < 0.012 Impressions: Chest X-Ray 02/14/19 14:45 IMPRESSION: Questionable small left pleural effusion. Breast Ultrasound 02/14/19 17:51 IMPRESSION: No evidence of abscess. Thickened scan and breast tissue edema is consistent with cellulitis/mastitis. Assessment and Plan - Diagnosis (1) Acute renal failure superimposed on stage 3 chronic kidney disease Qualifiers: Acute renal failure type: unspecified Qualified Code(s): N17.9 - Acute kidney failure, unspecified; N18.3 - Chronic kidney disease, stage 3 (moderate) Is this a current diagnosis for this admission?: Yes Plan: Improving with IV fluids, creatinine is closer to baseline. Nephrology recommends continuing current management and follow-up with Dr. Serra in the office in 2-3 weeks. (2) Anemia of chronic renal failure, stage 3 (moderate) Is this a current diagnosis for this admission?: Yes Plan: Hemoglobin stable at 8. (3) Cellulitis of left breast Is this a current diagnosis for this admission?: Yes Plan: Improving on Rocephin, cultures are pending but thus far negative. We will consider switching her to an oral antibiotic tomorrow. (4) Hyperkalemia Is this a current diagnosis for this admission?: Yes Plan: Resolved, patiromer stopped (5) Morbid obesity with BMI of 40.0-44.9, adult Is this a current diagnosis for this admission?: Yes Plan: Significant risk for comorbidities. I believe this is adding obesity hy poventilation to her already significant list of comorbidities. (6) Acute respiratory failure with hypoxia Is this a current diagnosis for this admission?: Yes Plan: She does have a history of COPD and congestive heart failure. Oxygen supplementation to keep saturation between 88 and 94%. She told me she is on oxygen at home (7) COPD exacerbation Is this a current diagnosis for this admission?: Yes Plan: The patient is on Brio Ellipta with as needed Xopenex nebulizers. No steroids at this point. (8) Diabetes mellitus type 2 in obese Is this a current diagnosis for this admission?: Yes Plan: Currently on Lantus and a sliding scale. - Time Time Spent with patient: 25-34 minutes - Plan Summary Plan Summary: Will DC to SNF when bed available
[2019-02-18] MEDS: AMLODIPINE BESYLATE 2.5 MG TABLET PO SCH (16:33)
[2019-02-18] MEDS: EPOETIN ALFA INJ 20000 UNIT/1 ML VIAL (RENAL) SUBCUT SCH (16:34)
[2019-02-18] MEDS: MONTELUKAST SODIUM 10 MG TABLET PO SCH (17:23)
--- NOTE | 2019-02-18 19:27 | PDOC PROGRESS REPORT ---
Subjective Progress Note for:: 02/18/19 Reason For Visit: Patient continuing to do better but for constipation. She denies any history of chest pain shortness of breath. Labs and medications reviewed shows stable/improving renal numbers. Physical Exam Vital Signs: Temp Pulse Resp BP Pulse Ox 98.7 F 62 17 155/55 H 100 02/18/19 16:00 02/18/19 16:00 02/18/19 16:00 02/18/19 16:00 02/18/19 16:00 Intake & Output 02/17/19 02/18/19 02/19/19 06:59 06:59 06:59 Intake Total 827 3688 908 Balance 827 3688 908 Weight 95.5 kg 101.1 kg General appearance: PRESENT: no acute distress Respiratory exam: PRESENT: clear to auscultation cheli. ABSENT: crackles Cardiovascular exam: PRESENT: +S1, +S2, systolic murmur GI/Abdominal exam: PRESENT: distended, normal bowel sounds, soft. ABSENT: organomegaly, tenderness Extremities exam: PRESENT: pedal edema Neurological exam: PRESENT: alert, awake, oriented to person, oriented to place Skin exam: ABSENT: erythema, mottled, rash Results Laboratory Results: 02/18/19 04:42 02/18/19 04:42 02/17/19 02/18/19 02/18/19 23:35 04:42 04:42 WBC 5.9 RBC 2.77 L Hgb 8.6 L Hct 25.5 L MCV 92 MCH 30.9 MCHC 33.6 RDW 15.1 H Plt Count 116 L Retic Count (auto) 2.61 Absolute Retic 0.072 Sodium 138.4 Potassium 4.9 Chloride 105 Carbon Dioxide 25 Anion Gap 8 BUN 55 H Creatinine 2.07 H Est GFR ( Amer) 29 L Est GFR (Non-Af Amer) 24 L Glucose 169 H Calcium 8.0 L Iron 71.0 TIBC 301 % Saturation 24 Ferritin 308.00 H Vitamin B12 445.0 Folate 5.83 Urine Color YELLOW Urine Appearance CLEAR Urine pH 6.0 Ur Specific [place] 1.011 Urine Protein 30 H Urine Glucose (UA) 150 H Urine Ketones NEGATIVE Urine Blood NEGATIVE Urine Nitrite NEGATIVE Ur Leukocyte Esterase MODERATE H Urine WBC (Auto) 12 Urine RBC (Auto) 1 02/14/19 02/14/19 14:50 14:50 Creatine Kinase 112 CK-MB (CK-2) 2.05 Troponin I < 0.012 Impressions: Chest X-Ray 02/14/19 14:45 IMPRESSION: Questionable small left pleural effusion. Breast Ultrasound 02/14/19 17:51 IMPRESSION: No evidence of abscess. Thickened scan and breast tissue edema is consistent with cellulitis/mastitis. Assessment & Plan - Diagnosis (1) Acute kidney injury Is this a current diagnosis for this admission?: Yes Plan: Improving. Will continue current principles of management. (2) Anemia of chronic renal failure, stage 3 (moderate) Is this a current diagnosis for this admission?: Yes Plan: Adequate iron studies. Initiate erythropoietin. Orders placed. (3) Cellulitis of left breast Is this a current diagnosis for this admission?: Yes Plan: Appropriate treatments as per hospitalist. (4) Hyperkalemia Is this a current diagnosis for this admission?: Yes Plan: Resolved. (5) Morbid obesity with BMI of 40.0-44.9, adult Is this a current diagnosis for this admission?: Yes Plan: Status quo. (6) Respiratory distress Plan: Much improved at the moment. (7) CHF (congestive heart failure) Qualifiers: Heart failure type: unspecified Heart failure chronicity: acute on chronic Qualified Code(s): I50.9 - Heart failure, unspecified Plan: Improving. (8) Diabetes mellitus type 2 in obese Is this a current diagnosis for this admission?: Yes Plan: Advised tight control. (9) Hypertension Plan: Uncontrolled. Start amlodipine and titrate accordingly.
[2019-02-18] MEDS: ATORVASTATIN CALCIUM 40 MG TABLET PO SCH (22:32)
[2019-02-18] MEDS: CEFTRIAXONE 2 GM/D5W RTU 2 GM/50 ML RTUPB IV SCH (22:32)
[2019-02-19 05:22] LABS: ANION GAP 9 (5-19); BLOOD UREA NITROGEN 52 mg/dL (7-20); CALCIUM 8.2 mg/dL (8.4-10.2); CARBON DIOXIDE 23 mmol/L (22-30); CHLORIDE 106 mmol/L (98-107); GLUCOSE 208 mg/dL (75-110); POTASSIUM 4.9 mmol/L (3.6-5.0); SODIUM 137.8 mmol/L (137-145)
[2019-02-19] MEDS: HEPARIN SOD (PORCINE) 5,000 UNIT/ML 1 ML SYRINGE SUBCUT SCH ×3 (05:55→22:33)
[2019-02-19] MEDS: NORMAL SALINE 1000 ML 1,000 ML IV PRN (05:57)
[2019-02-19] MEDS: AMLODIPINE BESYLATE 2.5 MG TABLET PO SCH (09:23)
[2019-02-19] MEDS: CLOPIDOGREL BISULFATE 75 MG TABLET PO SCH (09:23)
[2019-02-19] MEDS: EZETIMIBE 10 MG TABLET PO SCH (09:23)
[2019-02-19] MEDS: PREDNISONE 20 MG TABLET PO SCH ×2 (09:24→17:46)
[2019-02-19] MEDS: METOPROLOL SUCCINATE 25 MG TAB.SR.24H PO SCH (09:24)
[2019-02-19] MEDS: ISOSORBIDE MONONITRATE 60 MG TAB.ER.24H PO SCH (09:25)
[2019-02-19] MEDS: ASPIRIN 81 MG TABLET, CHEWABLE PO SCH (09:25)
[2019-02-19] MEDS: NYSTATIN/TRIAMCIN CREAM 15 GM TP SCH ×4 (09:25→22:35)
[2019-02-19] MEDS: GABAPENTIN 300 MG CAPSULE PO SCH (09:25)
[2019-02-19] MEDS: FLUTICASONE/VILANTEROL 200-25 MCG/DOSE IH SCH (09:26)
[2019-02-19] MEDS: INSULIN GLARGINE,HUM.REC.ANLOG 1,000 UNIT/10 ML VIAL SUBCUT SCH ×2 (09:29→22:34)
[2019-02-19] MEDS: INSULIN LISPRO 100 UNIT/ML 3 ML VIAL SUBCUT SCH ×4 (09:29→22:34)
[2019-02-19] MEDS: OXYCODONE-ACETAMINOPHEN 5-325 MG TABLET PO PRN (13:07)
--- NOTE | 2019-02-19 13:12 | RADIOLOGY REPORT (SQ) ---
EXAM DESCRIPTION: CT ABD/PELVIS NO ORAL OR IV COMPLETED DATE/TIME: 02/19/2019 12:54 pm REASON FOR STUDY: left sided abdominal distension COMPARISON: 01/21/2017 TECHNIQUE: CT scan of the abdomen and pelvis performed without intravenous or oral contrast. Images reviewed with lung, soft tissue, and bone windows. Reconstructed coronal and sagittal MPR images revi ewed. All images stored on PACS. All CT scanners at this facility use dose modulation, iterative reconstruction, and/or weight based d osing when appropriate to reduce radiation dose to as low as reasonably achievable (ALARA). [facility]: Dose Right [facility]: CareDose [facility]: Dose Right [facility]: Teradose 4D [facility]: Smart JEDI MIND RADIATION DOSE: CT Rad equipment meets quality standard of care and radiation dose reduction techniq ues were employed. CTDIvol: 27.8 mGy. DLP: 1482 mGy-cm.mGy. LIMITATIONS: None. FINDINGS: LOWER CHEST: Bilateral pleural effusions. Cardiomegaly. Pulmonary vascular congestion NON-CONTRASTED LIVER, SPLEEN, ADRENALS: Evaluation limited by lack of IV contrast. No identified sign ificant masses. PANCREAS: No masses. No peripancreatic inflammatory changes. GALLBLADDER: Surgically absent. RIGHT KIDNEY AND URETER: No suspicious masses. Assessment limited by lack of IV contrast. No signif icant calcifications. No hydronephrosis or hydroureter. LEFT KIDNEY AND URETER: No suspicious masses. Assessment limited by lack of IV contrast. No signifi cant calcifications. No hydronephrosis or hydroureter. AORTA AND RETROPERITONEUM: No aneurysm. No retroperitoneal masses or adenopathy. BOWEL AND PERITONEAL CAVITY: Sigmoid diverticulosis. No associated inflammation. There appears to b e a small amount of fluid in the colic gutter on the left. APPENDIX: Not identified. PELVIS, BLADDER, AND ABDOMINAL WALL:Urinary bladder is normal. No masses. Subcutaneous edema. BONES: Lumbar degenerative changes. Mild scoliosis. OTHER: No other significant finding. IMPRESSION: 1. Cardiomegaly with pulmonary vascular congestion and bilateral pleural effusions. 2. There is small amount of fluid in the colic gutter on the left. Diverticulosis coli. 3. Lumbar degenerative changes. 4. Subcutaneous edema. COMMENT: Quality ID # [id number]: Final reports with documentation of one or more dose reduction techniques (e.g., Automated exposure control, adjustment of the mA and/or kV according to patient size, use of iterative reconstruction technique) TECHNICAL DOCUMENTATION: JOB ID: [id number] [employer]- All Rights Reserved Reading location - IP/workstation name: [email or web address]
[2019-02-19] MEDS ORDERED: FUROSEMIDE INJ/PF 40 MG/4 ML SDV IV ONE (15:00)
[2019-02-19 15:37] LABS: A/G RATIO 1.1 (0.7-1.7); ALBUMIN 2 3.1 g/dL (2.9-4.4); ALPHA-2-GLOBULIN 2 0.7 g/dL (0.4-1.0); BETA GLOBULINS 0.8 g/dL (0.7-1.3); GAMMA GLOBULIN 1.2 g/dL (0.4-1.8); GLOBULIN TOTAL 2.9 g/dL (2.2-3.9); MONOCLONAL SPIKE Not Observed g/dL (Not Observ)
[2019-02-19] MEDS ORDERED: AMLODIPINE BESYLATE 2.5 MG TABLET PO SCH (17:00)
--- NOTE | 2019-02-19 17:40 | PDOC PROGRESS REPORT ---
Subjective Progress Note for:: 02/19/19 Reason For Visit: Patient is seen today. She feels that she is getting a bit short of breath when she exerts. She denies any history of chest pain, fever or chills. Labs and medications were reviewed.She still is getting Ringer lactate at the moment. Physical Exam Vital Signs: Temp Pulse Resp BP Pulse Ox 97.9 F 54 L 17 150/53 H 100 02/19/19 15:03 02/19/19 15:03 02/19/19 15:03 02/19/19 15:03 02/19/19 15:03 Intake & Output 02/18/19 02/19/19 02/20/19 06:59 06:59 06:59 Intake Total 3688 3776 1709 Balance 3688 3776 1709 Weight 101.1 kg 101.2 kg General appearance: PRESENT: no acute distress Respiratory exam: PRESENT: clear to auscultation cheli, crackles, decreased breath sounds. ABSENT: rhonchi Cardiovascular exam: PRESENT: +S1, +S2, systolic murmur GI/Abdominal exam: PRESENT: distended, normal bowel sounds, soft. ABSENT: organomegaly, tenderness Extremities exam: PRESENT: +1 edema Neurological exam: PRESENT: alert, awake, oriented to person, oriented to place Skin exam: ABSENT: cyanosis, erythema, rash Results Laboratory Results: 02/18/19 04:42 02/19/19 04:32 02/19/19 04:32 Sodium 137.8 Potassium 4.9 Chloride 106 Carbon Dioxide 23 Anion Gap 9 BUN 52 H Creatinine 1.74 H Est GFR ( Amer) 35 L Est GFR (Non-Af Amer) 29 L Glucose 208 H Calcium 8.2 L 02/14/19 02/14/19 14:50 14:50 Creatine Kinase 112 CK-MB (CK-2) 2.05 Troponin I < 0.012 Impressions: Chest X-Ray 02/14/19 14:45 IMPRESSION: Questionable small left pleural effusion. Breast Ultrasound 02/14/19 17:51 IMPRESSION: No evidence of abscess. Thickened scan and breast tissue edema is consistent with cellulitis/mastitis. Abdomen/Pelvis CT 02/19/19 00:00 IMPRESSION: 1. Cardiomegaly with pulmonary vascular congestion and bilateral pleural effusions. 2. There is small amount of fluid in the colic gutter on the left. Diverticulosis coli. 3. Lumbar degenerative changes. 4. Subcutaneous edema. Assessment & Plan - Diagnosis (1) Acute kidney injury Is this a current diagnosis for this admission?: Yes Plan: Currently patient is got signs of fluid overload both central and peripheral. Stop IV fluids. Start diuretics. Renal numbers are presently stable but obviously diluted. Monitor. (2) Anemia of chronic renal failure, stage 3 (moderate) Is this a current diagnosis for this admission?: Yes Plan: Adequate iron studies. Initiate erythropoietin. (3) Cellulitis of left breast Is this a current diagnosis for this admission?: Yes Plan: Appropriate treatments as per hospitalist. (4) Hyperkalemia Is this a current diagnosis for this admission?: Yes Plan: Resolved. (5) Morbid obesity with BMI of 40.0-44.9, adult Is this a current diagnosis for this admission?: Yes Plan: Status quo. (6) Respiratory distress Plan: She had improved but now seems to be developing congestive heart failure.See response to change in management. (7) CHF (congestive heart failure) Qualifiers: Heart failure type: unspecified Heart failure chronicity: acute on chronic Qualified Code(s): I50.9 - Heart failure, unspecified Plan: Is currently decompensated. Stop fluids. Start diuretics and oxygen.Get Rivera catheter in. Stat Lasix which has been discussed with the treating nurse. Monitor. (8) Diabetes mellitus type 2 in obese Is this a current diagnosis for this admission?: Yes Plan: Advised tight control. (9) Hypertension Plan: Uncontrolled. Titrate amlodipine accordingly.
[2019-02-19] MEDS: MONTELUKAST SODIUM 10 MG TABLET PO SCH (17:46)
[2019-02-19] MEDS: AMLODIPINE BESYLATE 5 MG TABLET PO SCH (17:50)
--- NOTE | 2019-02-19 19:22 | PDOC PROGRESS REPORT ---
Subjective Progress Note for:: 02/19/19 Subjective:: No adverse events overnight. No new complaints. Vital signs been stable. She denies any chest pain or shortness of breath. Her chief complaint is her pendulous abdomen which she and her say her doctor was going to order an ultrasound to evaluate but for some reason never did. Reason For Visit: COPD EXACERBATION,ROSA Physical Exam Vital Signs: Temp Pulse Resp BP Pulse Ox 97.9 F 54 L 17 150/53 H 100 02/19/19 15:03 02/19/19 15:03 02/19/19 15:03 02/19/19 15:03 02/19/19 15:03 Intake & Output 02/18/19 02/19/19 02/20/19 06:59 06:59 06:59 Intake Total 3688 3776 1945 Output Total 375 Balance 3688 3776 1570 Weight 101.1 kg 101.2 kg General appearance: PRESENT: cooperative, no apparent distress, morbidly obese, chronically ill appearing 73-year-old female Head exam: PRESENT: normocephalic Eye exam: PRESENT: conjunctiva pale. ABSENT: scleral icterus Respiratory exam: PRESENT: Diminished breath sounds, symmetrical, unlabored. ABSENT: accessory muscle use, rhonchi, wheezes Cardiovascular exam: PRESENT: RRR, +S1, +S2, systolic murmur, 1+ leg edema GI/Abdominal exam: PRESENT: normal bowel sounds, soft, tenderness -minimal of the left breast, other - Protuberant abdomen Neurological exam: PRESENT: alert, awake, oriented to person, oriented to place, oriented to situation Psychiatric exam: PRESENT: agitated, anxious, flat affect Focused psych exam: ABSENT: delusional, restlessness Skin exam: PRESENT: erythema -essentially resolved on the left breast Results Laboratory Results: 02/18/19 04:42 02/19/19 04:32 02/19/19 04:32 Sodium 137.8 Potassium 4.9 Chloride 106 Carbon Dioxide 23 Anion Gap 9 BUN 52 H Creatinine 1.74 H Est GFR ( Amer) 35 L Est GFR (Non-Af Amer) 29 L Glucose 208 H Calcium 8.2 L 02/14/19 18:13 Blood Blood Culture - Final NO GROWTH IN 5 DAYS 02/14/19 02/14/19 14:50 14:50 Creatine Kinase 112 CK-MB (CK-2) 2.05 Troponin I < 0.012 Impressions: Chest X-Ray 02/14/19 14:45 IMPRESSION: Questionable small left pleural effusion. Breast Ultrasound 02/14/19 17:51 IMPRESSION: No evidence of abscess. Thickened scan and breast tissue edema is consistent with cellulitis/mastitis. Abdomen/Pelvis CT 02/19/19 00:00 IMPRESSION: 1. Cardiomegaly with pulmonary vascular congestion and bilateral pleural effusions. 2. There is small amount of fluid in the colic gutter on the left. Diverticu losis coli. 3. Lumbar degenerative changes. 4. Subcutaneous edema. Assessment and Plan - Diagnosis (1) Acute renal failure superimposed on stage 3 chronic kidney disease Qualifiers: Acute renal failure type: unspecified Qualified Code(s): N17.9 - Acute kidney failure, unspecified; N18.3 - Chronic kidney disease, stage 3 (moderate) Is this a current diagnosis for this admission?: Yes Plan: Resolved. She actually looks a little bit fluid overloaded. Nephrology has stopped her IV fluids and started some Lasix. (2) Anemia of chronic renal failure, stage 3 (moderate) Is this a current diagnosis for this admission?: Yes Plan: Hemoglobin stable at 8. (3) Cellulitis of left breast Is this a current diagnosis for this admission?: Yes Plan: Resolving nicely. We will switch her over to oral antibiotics. (4) Hyperkalemia Is this a current diagnosis for this admission?: Yes Plan: Resolved, patiromer stopped (5) Morbid obesity with BMI of 40.0-44.9, adult Is this a current diagnosis for this admission?: Yes Plan: Significant risk for comorbidities. I believe this is adding obesity hypoventilation to her already significant list of comorbidities. She thought that there was something wrong with her abdomen CT scan today showed nothing like a mass or hernia, so this is just her body habitus. (6) Acute respiratory failure with hypoxia Is this a current diagnosis for this admission?: Yes Plan: She does have a history of COPD and congestive heart failure. Oxygen suppleme ntation to keep saturation between 88 and 94%. She told me she is on oxygen at home. Diuresis should also help her keep from having any trouble breathing. (7) COPD exacerbation Is this a current diagnosis for this admission?: Yes Plan: The patient is on Brio Ellipta with as needed Xopenex nebulizers. No steroids at this point. (8) Diabetes mellitus type 2 in obese Is this a current diagnosis for this admission?: Yes Plan: Currently on Lantus and a sliding scale. - Time Time Spent with patient: 25-34 minutes
[2019-02-19] MEDS: FUROSEMIDE INJ/PF 20 MG/2 ML SDV IV SCH (22:34)
[2019-02-19] MEDS: CEFTRIAXONE 2 GM/D5W RTU 2 GM/50 ML RTUPB IV SCH (22:35)
[2019-02-19] MEDS: ATORVASTATIN CALCIUM 40 MG TABLET PO SCH (22:35)
[2019-02-20] MEDS: OXYCODONE-ACETAMINOPHEN 5-325 MG TABLET PO PRN ×2 (01:22→21:12)
[2019-02-20] MEDS: HEPARIN SOD (PORCINE) 5,000 UNIT/ML 1 ML SYRINGE SUBCUT SCH ×3 (06:12→21:13)
[2019-02-20] MEDS: FUROSEMIDE INJ/PF 20 MG/2 ML SDV IV SCH ×3 (06:18→21:11)
[2019-02-20] MEDS: ACETAMINOPHEN 325 MG TABLET PO PRN (06:23)
[2019-02-20 07:32] LABS: ANION GAP 11 (5-19); BLOOD UREA NITROGEN 53 mg/dL (7-20); CALCIUM 8.7 mg/dL (8.4-10.2); CARBON DIOXIDE 23 mmol/L (22-30); CHLORIDE 105 mmol/L (98-107); GLUCOSE 171 mg/dL (75-110); POTASSIUM 4.6 mmol/L (3.6-5.0); SODIUM 138.5 mmol/L (137-145)
[2019-02-20] MEDS: INSULIN LISPRO 100 UNIT/ML 3 ML VIAL SUBCUT SCH ×4 (08:13→21:12)
[2019-02-20] MEDS: ISOSORBIDE MONONITRATE 60 MG TAB.ER.24H PO SCH (09:30)
[2019-02-20] MEDS: GABAPENTIN 300 MG CAPSULE PO SCH (09:30)
[2019-02-20] MEDS: PREDNISONE 20 MG TABLET PO SCH (09:31)
[2019-02-20] MEDS: ASPIRIN 81 MG TABLET, CHEWABLE PO SCH (09:32)
[2019-02-20] MEDS: CLOPIDOGREL BISULFATE 75 MG TABLET PO SCH (09:32)
[2019-02-20] MEDS: AMLODIPINE BESYLATE 5 MG TABLET PO SCH (09:32)
[2019-02-20] MEDS: METOPROLOL SUCCINATE 25 MG TAB.SR.24H PO SCH (09:33)
[2019-02-20] MEDS: FLUTICASONE/VILANTEROL 200-25 MCG/DOSE IH SCH (09:38)
[2019-02-20] MEDS: NYSTATIN/TRIAMCIN CREAM 15 GM TP SCH ×4 (09:39→21:10)
[2019-02-20] MEDS: EZETIMIBE 10 MG TABLET PO SCH (09:40)
[2019-02-20] MEDS: INSULIN GLARGINE,HUM.REC.ANLOG 1,000 UNIT/10 ML VIAL SUBCUT SCH ×2 (10:00→21:12)
[2019-02-20] MEDS ORDERED: LISINOPRIL 10 MG TABLET PO ONE (13:00)
--- NOTE | 2019-02-20 16:49 | PDOC PROGRESS REPORT ---
Subjective Progress Note for:: 02/20/19 Subjective:: No adverse events overnight. No new complaints. Blood pressure remains somewhat elevated. She has had a good amount of fluid off. She still denies any chest pain or shortness of breath. Went over the results of her CT scan with her that showed that she did not have any evidence of any sort of acute process such as a mass or hernia, but she was still having a hard time accepting that her abdomen is the way it is now as a result of her body habitus. Reason For Visit: COPD EXACERBATION,ROSA Physical Exam Vital Signs: Temp Pulse Resp BP Pulse Ox 98.4 F 66 20 175/53 H 99 02/20/19 07:54 02/20/19 14:00 02/20/19 11:20 02/20/19 11:20 02/20/19 11:20 Intake & Output 02/19/19 02/20/19 02/21/19 06:59 06:59 06:59 Intake Total 3776 1995 1065 Output Total 375 1100 Balance 3776 1620 -35 Weight 101.2 kg 105.6 kg General appearance: PRESENT: cooperative, no apparent distress, morbidly obese, chronically ill appearing 73-year-old female Head exam: PRESENT: normocephalic Eye exam: PRESENT: conjunctiva pale. ABSENT: scleral icterus Respiratory exam: PRESENT: Diminished breath sounds, symmetrical, unlabored. ABSENT: accessory muscle use, rhonchi, wheezes Cardiovascular exam: PRESENT: RRR, +S1, +S2, systolic murmur, 1+ leg edema GI/Abdominal exam: PRESENT: normal bowel sounds, soft, tenderness -minimal of the left breast, other - Protuberant abdomen Neurological exam: PRESENT: alert, awake, oriented to person, oriented to place, oriented to situation Psychiatric exam: PRESENT: agitated, anxious, flat affect Focused psych exam: ABSENT: delusional, restlessness Skin exam: PRESENT: erythema -essentially resolved on the left breast Results Laboratory Results: 02/18/19 04:42 02/20/19 06:29 02/18/19 02/20/19 04:42 06:29 Sodium 138.5 Potassium 4.6 Chloride 105 Carbon Dioxide 23 Anion Gap 11 BUN 53 H Creatinine 1.68 H Est GFR ( Amer) 36 L Est GFR (Non-Af Amer) 30 L Glucose 171 H Calcium 8.7 Total Protein 6.0 Albumin 3.1 02/14/19 19:17 Blood Blood Culture - Final NO GROWTH IN 5 DAYS 02/14/19 18:13 Blood Blood Culture - Final NO GROWTH IN 5 DAYS 02/14/19 02/14/19 14:50 14:50 Creatine Kinase 112 CK-MB (CK-2) 2.05 Troponin I < 0.012 Impressions: Chest X-Ray 02/14/19 14:45 IMPRESSION: Questionable small left pleural effusion. Breast Ultrasound 02/14/19 17:51 IMPRESSION: No evidence of abscess. Thickened scan and breast tissue edema is consistent with cellulitis/mastitis. Abdomen/Pelvis CT 02/19/19 00:00 IMPRESSION: 1. Cardiomegaly with pulmonary vascular congestion and bilateral pleural effusions. 2. There is small amount of fluid in the colic gutter on the left. Diverticulosis coli. 3. Lumbar degenerative changes. 4. Subcutaneous edema. Assessment and Plan - Diagnosis (1) Acute renal failure superimposed on stage 3 chronic kidney disease Qualifiers: Acute renal failure type: unspecified Qualified Code(s): N17.9 - Acute kid galdino failure, unspecified; N18.3 - Chronic kidney disease, stage 3 (moderate) Is this a current diagnosis for this admission?: Yes Plan: Resolved. Nephrology has stopped her IV fluids and started some Lasix to help remove some excess accumulated fluid. (2) Anemia of chronic renal failure, stage 3 (moderate) Is this a current diagnosis for this admission?: Yes Plan: Hemoglobin stable at 8. (3) Cellulitis of left breast Is this a current diagnosis for this admission?: Yes Plan: Resolving nicely. We will switch her over to oral antibiotics. (4) Hyperkalemia Is this a current diagnosis for this admission?: Yes Plan: Resolved, patiromer stopped (5) Morbid obesity with BMI of 40.0-44.9, adult Is this a current diagnosis for this admission?: Yes Plan: Significant risk for comorbidities. I believe this is adding obesity hypoventilation to her already significant list of comorbidities. She thought that there was something wrong with her abdomen CT scan today showed nothing like a mass or hernia, so this is just her body habitus. (6) Acute respiratory failure with hypoxia Is this a current diagnosis for this admission?: Yes Plan: She does have a history of COPD and congestive heart failure. Oxygen supplementation to keep saturation between 88 and 94%. She told me she is on oxygen at home. Diuresis should also help her keep from having any trouble breathing. (7) COPD exacerbation Is this a current diagnosis for this admission?: Yes Plan: The patient is on Brio Ellipta with as needed Xopenex nebulizers. No steroids at this point. (8) Diabetes mellitus type 2 in obese Is this a current diagnosis for this admission?: Yes Plan: Currently on Lantus and a sliding scale. - Time Time Spent with patient: 25-34 minutes
[2019-02-20] MEDS: MONTELUKAST SODIUM 10 MG TABLET PO SCH (18:01)
[2019-02-20] MEDS: CEPHALEXIN 500 MG CAPSULE PO SCH (21:11)
[2019-02-20] MEDS: ATORVASTATIN CALCIUM 40 MG TABLET PO SCH (21:12)
[2019-02-20] MEDS: AMLODIPINE BESYLATE 10 MG TABLET PO SCH (21:12)
[2019-02-20] MEDS ORDERED: AMLODIPINE BESYLATE 5 MG TABLET PO SCH (22:00)
[2019-02-21] MEDS: OXYCODONE-ACETAMINOPHEN 5-325 MG TABLET PO PRN ×4 (02:51→22:41)
[2019-02-21] MEDS: CEPHALEXIN 500 MG CAPSULE PO SCH ×3 (06:22→21:49)
[2019-02-21] MEDS: FUROSEMIDE INJ/PF 20 MG/2 ML SDV IV SCH ×3 (06:22→21:49)
[2019-02-21] MEDS: HEPARIN SOD (PORCINE) 5,000 UNIT/ML 1 ML SYRINGE SUBCUT SCH ×3 (06:23→21:48)
[2019-02-21 06:30] LABS: ANION GAP 7 (5-19); BLOOD UREA NITROGEN 57 mg/dL (7-20); CALCIUM 8.6 mg/dL (8.4-10.2); CARBON DIOXIDE 25 mmol/L (22-30); CHLORIDE 106 mmol/L (98-107); GLUCOSE 168 mg/dL (75-110); POTASSIUM 4.4 mmol/L (3.6-5.0)
[2019-02-21] MEDS: INSULIN LISPRO 100 UNIT/ML 3 ML VIAL SUBCUT SCH ×4 (07:36→21:50)
[2019-02-21] MEDS: GABAPENTIN 300 MG CAPSULE PO SCH (10:13)
[2019-02-21] MEDS: ISOSORBIDE MONONITRATE 60 MG TAB.ER.24H PO SCH (10:13)
[2019-02-21] MEDS: METOPROLOL SUCCINATE 25 MG TAB.SR.24H PO SCH (10:13)
[2019-02-21] MEDS: INSULIN GLARGINE,HUM.REC.ANLOG 1,000 UNIT/10 ML VIAL SUBCUT SCH ×2 (10:14→21:49)
[2019-02-21] MEDS: CLOPIDOGREL BISULFATE 75 MG TABLET PO SCH (10:14)
[2019-02-21] MEDS: NYSTATIN/TRIAMCIN CREAM 15 GM TP SCH ×3 (10:14→17:11)
[2019-02-21] MEDS: AMLODIPINE BESYLATE 10 MG TABLET PO SCH (10:14)
[2019-02-21] MEDS: LISINOPRIL 10 MG TABLET PO SCH (10:14)
[2019-02-21] MEDS: ASPIRIN 81 MG TABLET, CHEWABLE PO SCH (10:14)
[2019-02-21] MEDS: EZETIMIBE 10 MG TABLET PO SCH (10:15)
[2019-02-21] MEDS: FLUTICASONE/VILANTEROL 200-25 MCG/DOSE IH SCH (10:15)
--- NOTE | 2019-02-21 15:44 | PDOC PROGRESS REPORT ---
Subjective Progress Note for:: 02/21/19 Subjective:: No adverse events overnight. No new complaints. Vital signs been stable. Eating and drinking without difficulty. No chest pain or shortness of breath. She has had good urine output. Reason For Visit: COPD EXACERBATION,ROSA Physical Exam Vital Signs: Temp Pulse Resp BP Pulse Ox 97.7 F 52 L 21 H 147/53 H 100 02/21/19 11:17 02/21/19 14:00 02/21/19 11:17 02/21/19 11:17 02/21/19 11:17 Intake & Output 02/20/19 02/21/19 02/22/19 06:59 06:59 06:59 Intake Total 1994 1287 Output Total 375 4000 Balance 1620 -2713 Weight 105.6 kg 110 kg General appearance: PRESENT: cooperative, no apparent distress, morbidly obese, chronically ill appearing 73-year-old female Head exam: PRESENT: normocephalic Eye exam: PRESENT: conjunctiva pale. ABSENT: scleral icterus Respiratory exam: PRESENT: Diminished breath sounds, symmetrical, unlabored. ABSENT: accessory muscle use, rhonchi, wheezes Cardiovascular exam: PRESENT: RRR, +S1, +S2, systolic murmur, 1+ leg edema GI/Abdominal exam: PRESENT: normal bowel sounds, soft, tenderness -minimal of the left breast, other - Protuberant abdomen Neurological exam: PRESENT: alert, awake, oriented to person, oriented to place, oriented to situation Psychiatric exam: PRESENT: agitated, anxious, flat affect Focused psych exam: ABSENT: delusional, restlessness Skin exam: PRESENT: erythema -essentially resolved on the left breast Results Laboratory Results: 02/18/19 04:42 02/21/19 05:29 02/21/19 05:29 Sodium 138.0 Potassium 4.4 Chloride 106 Carbon Dioxide 25 Anion Gap 7 BUN 57 H Creatinine 1.72 H Est GFR ( Amer) 35 L Est GFR (Non-Af Amer) 29 L Glucose 168 H Calcium 8.6 02/14/19 02/14/19 14:50 14:50 Creatine Kinase 112 CK-MB (CK-2) 2.05 Troponin I < 0.012 Impressions: Chest X-Ray 02/14/19 14:45 IMPRESSION: Questionable small left pleural effusion. Breast Ultrasound 02/14/19 17:51 IMPRESSION: No evidence of abscess. Thickened scan and breast tissue edema is consistent with cellulitis/mastitis. Abdomen/Pelvis CT 02/19/19 00:00 IMPRESSION: 1. Cardiomegaly with pulmonary vascular congestion and bilateral pleural effusions. 2. There is small amount of fluid in the colic gutter on the left. Diverticulosis coli. 3. Lumbar degenerative changes. 4. Subcutaneous edema. Assessment and Plan - Diagnosis (1) Acute renal failure superimposed on stage 3 chronic kidney disease Qualifiers: Acute renal failure type: unspecified Qualified Code(s): N17.9 - Acute kidney failure, unspecified; N18.3 - Chronic kidney disease, stage 3 (moderate) Is this a current diagnosis for this admission?: Yes Plan: Resolved. Nephrology has stopped her IV fluids and started some Lasix to help remove some excess accumulated fluid. We will let her have it again today and will probably switch her to oral Lasix by tomorrow (2) Anemia of chronic renal failure, stage 3 (moderate) Is this a current diagnosis for this admission?: Yes Plan: Hemoglobin stable at 8. (3) Cellulitis of left breast Is this a current diagnosis for this admission?: Yes Plan: Resolving nicely. She is finishing a course of Keflex. (4) Hyperkalemia Is this a current diagnosis for this admission?: Yes Plan: Resolved, patiromer stopped (5) Morbid obesity with BMI of 40.0-44.9, adult Is this a current diagnosis for this admission?: Yes Plan: Significant risk for comorbidities. I believe this is adding obesity hypoventilation to her already significant list of comorbidities. She thought that there was something wrong with her abdomen CT scan today showed nothing like a mass or hernia, so this is just her body habitus. (6) Acute respiratory failure with hypoxia Is this a current diagnosis for this admission?: Yes Plan: She does have a history of COPD and congestive heart failure. Oxygen supplementation to keep saturation between 88 and 94%. She told me she is on oxygen at home. Diuresis should also help her keep from having any trouble breathing. (7) COPD exacerbation Is this a current diagnosis for this admission?: Yes Plan: The patient is on Brio Ellipta with as needed Xopenex nebulizers. No steroids at this point. (8) Diabetes mellitus type 2 in obese Is this a current diagnosis for this admission?: Yes Plan: Currently on Lantus and a sliding scale. - Time Time Spent with patient: 15-24 minutes - Plan Summary Plan Summary: Likely to SNF on Saturday
[2019-02-21] MEDS: MONTELUKAST SODIUM 10 MG TABLET PO SCH (17:11)
[2019-02-21] MEDS: ATORVASTATIN CALCIUM 40 MG TABLET PO SCH (21:49)
[2019-02-22] MEDS: ONDANSETRON 4 MG TAB.RAPDIS PO PRN (03:41)
[2019-02-22] MEDS: HEPARIN SOD (PORCINE) 5,000 UNIT/ML 1 ML SYRINGE SUBCUT SCH ×3 (05:11→21:44)
[2019-02-22] MEDS: FUROSEMIDE INJ/PF 20 MG/2 ML SDV IV SCH ×3 (05:23→21:49)
[2019-02-22] MEDS: CEPHALEXIN 500 MG CAPSULE PO SCH ×3 (05:23→21:49)
[2019-02-22] MEDS: ONDANSETRON HCL INJ/PF 4 MG/2 ML SDV IV PRN (05:23)
[2019-02-22] MEDS: INSULIN LISPRO 100 UNIT/ML 3 ML VIAL SUBCUT SCH ×4 (07:12→21:44)
[2019-02-22 07:25] LABS: ANION GAP 8 (5-19); BLOOD UREA NITROGEN 61 mg/dL (7-20); CALCIUM 8.3 mg/dL (8.4-10.2); CARBON DIOXIDE 24 mmol/L (22-30); CHLORIDE 107 mmol/L (98-107); GLUCOSE 84 mg/dL (75-110); POTASSIUM 4.4 mmol/L (3.6-5.0); SODIUM 138.7 mmol/L (137-145)
[2019-02-22] MEDS ORDERED: BISACODYL 5 MG TABEC PO ONE (09:30)
[2019-02-22] MEDS: OXYCODONE-ACETAMINOPHEN 5-325 MG TABLET PO PRN ×2 (09:36→19:42)
[2019-02-22] MEDS: DOCUSATE SODIUM 100 MG CAPSULE PO SCH (09:37)
[2019-02-22] MEDS: METOPROLOL SUCCINATE 25 MG TAB.SR.24H PO SCH (09:37)
[2019-02-22] MEDS: GABAPENTIN 300 MG CAPSULE PO SCH (09:37)
[2019-02-22] MEDS: ISOSORBIDE MONONITRATE 60 MG TAB.ER.24H PO SCH (09:37)
[2019-02-22] MEDS: LISINOPRIL 10 MG TABLET PO SCH (09:37)
[2019-02-22] MEDS: ASPIRIN 81 MG TABLET, CHEWABLE PO SCH (09:38)
[2019-02-22] MEDS: CLOPIDOGREL BISULFATE 75 MG TABLET PO SCH (09:38)
[2019-02-22] MEDS: AMLODIPINE BESYLATE 10 MG TABLET PO SCH (09:38)
[2019-02-22] MEDS: EZETIMIBE 10 MG TABLET PO SCH (09:41)
[2019-02-22] MEDS: FLUTICASONE/VILANTEROL 200-25 MCG/DOSE IH SCH (09:41)
[2019-02-22] MEDS: INSULIN GLARGINE,HUM.REC.ANLOG 1,000 UNIT/10 ML VIAL SUBCUT SCH ×2 (09:42→21:44)
[2019-02-22 13:57] LABS: HEMATOCRIT 24.3 % (36.0-47.0); HEMOGLOBIN 8.1 g/dL (12.0-15.5); MEAN CORPUSCULAR HEMOGLOBIN 30.5 pg (27.0-33.4); MEAN CORPUSCULAR HGB CONC 33.3 g/dL (32.0-36.0); MEAN CORPUSCULAR VOLUME 92 fl (80-97); PLATELET COUNT 118 10^3/uL (150-450); RED BLOOD COUNT 2.65 10^6/uL (3.72-5.28)
--- NOTE | 2019-02-22 14:40 | RADIOLOGY REPORT (SQ) ---
EXAM DESCRIPTION: CHEST SINGLE VIEW COMPLETED DATE/TIME: 02/22/2019 1:41 pm REASON FOR STUDY: sob, chest pressure COMPARISON: 02/14/2019. NUMBER OF VIEWS: One view. TECHNIQUE: Single frontal radiographic view of the chest acquired. LIMITATIONS: None. FINDINGS: LUNGS AND PLEURA: Patchy airspace disease in the left lung, no change. Low lung volumes, right otherwise clear. No pneumothorax. No large effusion. MEDIASTINUM AND HILAR STRUCTURES: Stable cardiomediastinal silhouette. Previous CABG. HEART AND VASCULAR STRUCTURES: Heart enlarged, chronic. Mild vascular congestion. BONES: No acute findings. HARDWARE: None in the chest. OTHER: No other significant finding. IMPRESSION: 1. Fairly stable appearance of the chest. Diminished left basilar aeration with cardiomegaly and mil d vascular congestion. TECHNICAL DOCUMENTATION: JOB ID: [id number] [employer]- All Rights Reserved Reading location - IP/workstation name: [email or web address]
--- NOTE | 2019-02-22 16:07 | PDOC PROGRESS REPORT ---
Subjective Progress Note for:: 02/22/19 Subjective:: No adverse events overnight. No new complaints. When I came in the room she was eating breakfast. No chest pain or shortness of breath. She was excited about the prospect of going to a facility for physical therapy. Reason For Visit: COPD EXACERBATION,ROSA Physical Exam Vital Signs: Temp Pulse Resp BP Pulse Ox 98.5 F 50 L 18 92/49 L 100 02/22/19 11:38 02/22/19 11:38 02/22/19 11:38 02/22/19 11:38 02/22/19 11:38 Intake & Output 02/21/19 02/22/19 02/23/19 06:59 06:59 06:59 Intake Total 1287 1836 Output Total 4000 3700 800 Balance -2713 -1864 -800 Weight 110 kg 110 kg General appearance: PRESENT: cooperative, no apparent distress, morbidly obese, chronically ill appearing 73-year-old female Head exam: PRESENT: normocephalic Eye exam: PRESENT: conjunctiva pale. ABSENT: scleral icterus Respiratory exam: PRESENT: Diminished breath sounds, symmetrical, unlabored. ABSENT: accessory muscle use, rhonchi, wheezes Cardiovascular exam: PRESENT: RRR, +S1, +S2, systolic murmur, 1+ leg edema GI/Abdominal exam: PRESENT: normal bowel sounds, soft, tenderness -minimal of the left breast, other - Protuberant abdomen Neurological exam: PRESENT: alert, awake, oriented to person, oriented to place, oriented to situation Psychiatric exam: PRESENT: agitated, anxious, flat affect Focused psych exam: ABSENT: delusional, restlessness Skin exam: PRESENT: erythema -essentially resolved on the left breast Results Laboratory Results: 02/22/19 13:30 02/22/19 05:44 02/22/19 02/22/19 05:44 13:30 WBC 8.0 RBC 2.65 L Hgb 8.1 L Hct 24.3 L MCV 92 MCH 30.5 MCHC 33.3 RDW 15.0 H Plt Count 118 L Sodium 138.7 Potassium 4.4 Chloride 107 Carbon Dioxide 24 Anion Gap 8 BUN 61 H Creatinine 1.64 H Est GFR ( Amer) 37 L Est GFR (Non-Af Amer) 31 L Glucose 84 Calcium 8.3 L 02/14/19 02/14/19 02/22/19 14:50 14:50 13:30 Creatine Kinase 112 CK-MB (CK-2) 2.05 Troponin I < 0.012 0.016 Impressions: Breast Ultrasound 02/14/19 17:51 IMPRESSION: No evidence of abscess. Thickened scan and breast tissue edema is consistent with cellulitis/mastitis. Abdomen/Pelvis CT 02/19/19 00:00 IMPRESSION: 1. Cardiomegaly with pulmonary vascular congestion and bilateral pleural effusions. 2. There is small amount of fluid in the colic gutter on the left. Diverticulosis coli. 3. Lumbar degenerative changes. 4. Subcutaneous edema. Chest X-Ray 02/22/19 00:00 IMPRESSION: 1. Fairly stable appearance of the chest. Diminished left basilar aeration with cardiomegaly and mild vascular congestion. Assessment and Plan - Diagnosis (1) Acute renal failure superimposed on stage 3 chronic kidney disease Qualifiers: Acute renal failure type: unspecified Qualified Code(s): N17.9 - Acute kidney failure, unspecified; N18.3 - Chronic kidney disease, stage 3 (moderate) Is this a current diagnosis for this admission?: Yes Plan: Resolved. Nephrology has stopped her IV fluids and started some Lasix to help remove some excess accumulated fluid. We will let her have it again today and will probably switch her to oral Lasix by tomorrow (2) Anemia of chronic renal failure, stage 3 (moderate) Is this a current diagnosis for this admission?: Yes Plan: Hemoglobin stable at 8. (3) Cellulitis of left breast Is this a current diagnosis for this admission?: Yes Plan: Resolving nicely. She is finishing a course of Keflex. (4) Hyperkalemia Is this a current diagnosis for this admission?: Yes Plan: Resolved, patiromer stopped (5) Morbid obesity with BMI of 40.0-44.9, adult Is this a current diagnosis for this admission?: Yes Plan: Significant risk for comorbidities. I believe this is adding obesity hypoventilation to her already significant list of comorbidities. She thought that there was something wrong with her abdomen CT scan today showed nothing like a mass or hernia, so this is just her body habitus. (6) Acute respiratory failure with hypoxia Is this a current diagnosis for this admission?: Yes Plan: She does have a history of COPD and congestive heart failure. Oxygen supplementation to keep saturation between 88 and 94%. She told me she is on oxygen at home. Diuresis should also help her keep from having any trouble breathing. (7) COPD exacerbation Is this a current diagnosis for this admission?: Yes Plan: The patient is on Brio Ellipta with as needed Xopenex nebulizers. No steroids at this point. (8) Diabetes mellitus type 2 in obese Is this a current diagnosis for this admission?: Yes Plan: Currently on Lantus and a sliding scale. - Time Time Spent with patient: 15-24 minutes - Plan Summary Plan Summary: We will try to get her into a nursing home facility early this week.
[2019-02-22] MEDS: MONTELUKAST SODIUM 10 MG TABLET PO SCH (17:17)
[2019-02-22] MEDS ORDERED: NYSTATIN/DEXAMETH/DIPHEN SUSP 120 ML PO ONE ×2 (21:00→21:31)
[2019-02-22] MEDS ORDERED: VANCOMYCIN HCL INJ 1000 MG VIAL ONE (21:32)
[2019-02-22] MEDS: ATORVASTATIN CALCIUM 40 MG TABLET PO SCH (21:49)
--- NOTE | 2019-02-22 23:38 | EKG REPORT ---
SEVERITY:- BORDERLINE ECG - SINUS RHYTHM LOW VOLTAGE IN FRONTAL LEADS BORDERLINE T ABNORMALITIES, DIFFUSE LEADS : Confirmed by: Mariano Rodríguez 22-Feb-2019 23:37:56
[2019-02-23] MEDS: HEPARIN SOD (PORCINE) 5,000 UNIT/ML 1 ML SYRINGE SUBCUT SCH ×3 (05:52→22:35)
[2019-02-23 06:02] LABS: ANION GAP 8 (5-19); BLOOD UREA NITROGEN 64 mg/dL (7-20); CALCIUM 8.1 mg/dL (8.4-10.2); CARBON DIOXIDE 28 mmol/L (22-30); CHLORIDE 104 mmol/L (98-107); GLUCOSE 87 mg/dL (75-110); POTASSIUM 4.9 mmol/L (3.6-5.0); SODIUM 139.6 mmol/L (137-145)
[2019-02-23] MEDS: FUROSEMIDE INJ/PF 20 MG/2 ML SDV IV SCH ×3 (06:08→22:24)
[2019-02-23] MEDS: OXYCODONE-ACETAMINOPHEN 5-325 MG TABLET PO PRN (06:08)
[2019-02-23] MEDS: CEPHALEXIN 500 MG CAPSULE PO SCH ×3 (06:08→22:23)
[2019-02-23] MEDS: INSULIN LISPRO 100 UNIT/ML 3 ML VIAL SUBCUT SCH ×4 (07:24→22:25)
[2019-02-23] MEDS: METOPROLOL SUCCINATE 25 MG TAB.SR.24H PO SCH (09:39)
[2019-02-23] MEDS: ISOSORBIDE MONONITRATE 60 MG TAB.ER.24H PO SCH (09:39)
[2019-02-23] MEDS: GABAPENTIN 300 MG CAPSULE PO SCH (09:40)
[2019-02-23] MEDS: AMLODIPINE BESYLATE 10 MG TABLET PO SCH (09:40)
[2019-02-23] MEDS: INSULIN GLARGINE,HUM.REC.ANLOG 1,000 UNIT/10 ML VIAL SUBCUT SCH ×2 (09:40→22:24)
[2019-02-23] MEDS: DOCUSATE SODIUM 100 MG CAPSULE PO SCH (09:40)
[2019-02-23] MEDS: LISINOPRIL 10 MG TABLET PO SCH (09:40)
[2019-02-23] MEDS: ASPIRIN 81 MG TABLET, CHEWABLE PO SCH (09:40)
[2019-02-23] MEDS: CLOPIDOGREL BISULFATE 75 MG TABLET PO SCH (09:40)
[2019-02-23] MEDS: EZETIMIBE 10 MG TABLET PO SCH (09:40)
[2019-02-23] MEDS: NYSTATIN/DEXAMETH/DIPHEN SUSP 120 ML PO SCH ×3 (09:40→17:08)
[2019-02-23] MEDS: ACETAMINOPHEN 325 MG TABLET PO PRN ×3 (09:43→22:22)
[2019-02-23] MEDS: FLUTICASONE/VILANTEROL 200-25 MCG/DOSE IH SCH (11:35)
--- NOTE | 2019-02-23 15:30 | PDOC PROGRESS REPORT ---
Subjective Progress Note for:: 02/23/19 Subjective:: Patient continues to do well. She says she is feeling better and her breathing is much better. She also claims that her swelling is also going down. Her appetite fluctuates though. Her urine output has been good and she is seems to be diuresing pretty well. Urine output for the last 24 hours was 1450 mL and prior to that was 3-4 L. She informs me that she was supposed to have cardiac catheterization at [facility] by Dr. Jacobs. Discussed with her the effect of contrast on her kidney function and the possibility of worsening to the point of requiring dialysis treatment. However I also told her that if it is really necessary to maintain cardiac function then that may just be a risk that she needs to accept. I urged her to talk to her street light repairer about this. Reason For Visit: COPD EXACERBATION,ROSA Physical Exam Vital Signs: Temp Pulse Resp BP Pulse Ox 98.9 F 63 20 128/50 H 100 02/23/19 12:56 02/23/19 12:56 02/23/19 12:56 02/23/19 12:56 02/23/19 12:56 Intake & Output 02/22/19 02/23/19 02/24/19 06:59 06:59 06:59 Intake Total 1836 266 Output Total 3700 1450 Balance -1864 -1184 Weight 110 kg 110 kg Exam: General appearance: PRESENT: no acute distress, cooperative, well-developed, w ell-nourished Head exam: PRESENT: atraumatic, normocephalic Eye exam: PRESENT: conjunctiva pale, PERRLA. ABSENT: scleral icterus Neck exam: ABSENT: JVD Respiratory exam: PRESENT: Diminished breath sounds. ABSENT: crackles, rales, rhonchi, unlabored, wheezes Cardiovascular exam: PRESENT: Regular rate rhythm -+S1, +S2. ABSENT: diastolic murmur, systolic murmur GI/Abdominal exam: PRESENT: normal bowel sounds, soft. ABSENT: guarding, mass, tenderness Extremities exam: Grade 2 bilateral lower extremity pitting edema Neurological exam: PRESENT: alert, awake, oriented to person, place and time. Skin exam: PRESENT: dry, warm, Cardiovascular exam: PRESENT: +S1, +S2, systolic murmur GI/Abdominal exam: PRESENT: distended, normal bowel sounds, soft. ABSENT: organomegaly, tenderness Results Laboratory Results: 02/22/19 13:30 02/23/19 05:05 02/23/19 05:05 Sodium 139.6 Potassium 4.9 Chloride 104 Carbon Dioxide 28 Anion Gap 8 BUN 64 H Creatinine 1.85 H Est GFR ( Amer) 33 L Est GFR (Non-Af Amer) 27 L Glucose 87 Calcium 8.1 L 02/14/19 02/14/19 02/22/19 14:50 14:50 13:30 Creatine Kinase 112 CK-MB (CK-2) 2.05 Troponin I < 0.012 0.016 Impressions: Breast Ultrasound 02/14/19 17:51 IMPRESSION: No evidence of abscess. Thickened scan and breast tissue edema is consistent with cellulitis/mastitis. Abdomen/Pelvis CT 02/19/19 00:00 IMPRESSION: 1. Cardiomegaly with pulmonary vascular congestion and bilateral pleural effusions. 2. There is small amount of fluid in the colic gutter on the left. Diverticulosis coli. 3. Lumbar degenerative changes. 4. Subcutaneous edema. Chest X-Ray 02/22/19 00:00 IMPRESSION: 1. Fairly stable appearance of the chest. Diminished left basilar aeration with cardiomegaly and mild vascular congestion. Assessment & Plan - Diagnosis (1) Acute renal failure superimposed on stage 3 chronic kidney disease Qualifiers: Acute renal failure type: unspecified Qualified Code(s): N17.9 - Acute kidney failure, unspecified; N18.3 - Chronic kidney disease, stage 3 (moderate) Is this a current diagnosis for this admission?: Yes Plan: Kidney function has improved from creatinine of 4.63. Currently kidney function has been stabilizing anywhere between 1.6-1.8. She is nonoliguric and has a good diuretic response. Continue current diuretics at current dose. She does not need any urgent renal replacement therapy at this time. As mentioned above I discussed with the patient the effect of contrast with doing cardiac catheterization to the kidney function with possibility of worsening and requiring hemodialysis after. Patient will need to speak to her street light repairer and see if this is really necessary and if it does then she needs to just accept the risk. (2) Anemia of chronic renal failure, stage 3 (moderate) Is this a current diagnosis for this admission?: Yes Plan: Adequate iron stores. Currently on Procrit. (3) Hypertension Is this a current diagnosis for this admission?: Yes Plan: Well controlled. (4) CHF (congestive heart failure) Qualifiers: Heart failure type: unspecified Heart failure chronicity: acute on chronic Qualified Code(s): I50.9 - Heart failure, unspecified Is this a current diagnosis for this admission?: Yes Plan: Clinically improving. However still in hypervolemic state so we will continue diuresis. (5) Diabetes mellitus type 2 in obese Is this a current diagnosis for this admission?: Yes Plan: Needs better control. Defer to hospitalist. - Time Time with patient: 15-25 minutes
[2019-02-23] MEDS: MONTELUKAST SODIUM 10 MG TABLET PO SCH (17:08)
--- NOTE | 2019-02-23 17:42 | PDOC PROGRESS REPORT ---
Subjective Progress Note for:: 02/23/19 Subjective:: No adverse events overnight. No new complaints. Vital signs been stable. Blood pressures been well controlled. Blood sugars have not been terrible but there is still a little bit elevated. Eating and drinking without difficulty. No chest pain or shortness of breath. Reason For Visit: COPD EXACERBATION,ROSA Physical Exam Vital Signs: Temp Pulse Resp BP Pulse Ox 98.3 F 53 L 20 114/42 L 100 02/23/19 16:12 02/23/19 16:12 02/23/19 16:12 02/23/19 16:12 02/23/19 16:12 Intake & Output 02/22/19 02/23/19 02/24/19 06:59 06:59 06:59 Intake Total 1836 266 Output Total 3700 1450 675 Balance -1864 -1184 -675 Weight 110 kg 110 kg General appearance: PRESENT: cooperative, no apparent distress, morbidly obese, chronically ill appearing 73-year-old female Head exam: PRESENT: normocephalic Eye exam: PRESENT: conjunctiva pale. ABSENT: scleral icterus Respiratory exam: PRESENT: Diminished breath sounds, symmetrical, unlabored. ABSENT: accessory muscle use, rhonchi, wheezes Cardiovascular exam: PRESENT: RRR, +S1, +S2, systolic murmur, 1+ leg edema GI/Abdominal exam: PRESENT: normal bowel sounds, soft, other - Protuberant abdomen Neurological exam: PRESENT: alert, awake, oriented to person, oriented to place, oriented to situation Psychiatric exam: PRESENT: flat affect Focused psych exam: ABSENT: delusional, restlessness Skin exam: PRESENT: Dry, warm, pale Results Laboratory Results: 02/22/19 13:30 02/23/19 05:05 02/23/19 05:05 Sodium 139.6 Potassium 4.9 Chloride 104 Carbon Dioxide 28 Anion Gap 8 BUN 64 H Creatinine 1.85 H Est GFR ( Amer) 33 L Est GFR (Non-Af Amer) 27 L Glucose 87 Calcium 8.1 L 02/14/19 02/14/19 02/22/19 14:50 14:50 13:30 Creatine Kinase 112 CK-MB (CK-2) 2.05 Troponin I < 0.012 0.016 Impressions: Breast Ultrasound 02/14/19 17:51 IMPRESSION: No evidence of abscess. Thickened scan and breast tissue edema is consistent with cellulitis/mastitis. Abdomen/Pelvis CT 02/19/19 00:00 IMPRESSION: 1. Cardiomegaly with pulmonary vascular congestion and bilateral pleural effusions. 2. There is small amount of fluid in the colic gutter on the left. Diverti culosis coli. 3. Lumbar degenerative changes. 4. Subcutaneous edema. Chest X-Ray 02/22/19 00:00 IMPRESSION: 1. Fairly stable appearance of the chest. Diminished left basilar aeration with cardiomegaly and mild vascular congestion. Assessment and Plan - Diagnosis (1) Acute renal failure superimposed on stage 3 chronic kidney disease Qualifiers: Acute renal failure type: unspecified Qualified Code(s): N17.9 - Acute kidney failure, unspecified; N18.3 - Chronic kidney disease, stage 3 (moderate) Is this a current diagnosis for this admission?: Yes Plan: Resolved. Nephrology has stopped her IV fluids and started some Lasix to help remove some excess accumulated fluid. She is back on oral Lasix, monitoring her fluid intake. (2) Anemia of chronic renal failure, stage 3 (moderate) Is this a current diagnosis for this admission?: Yes Plan: Hemoglobin stable at 8., Good iron stores, nephrology is monitoring. (3) Cellulitis of left breast Is this a current diagnosis for this admission?: Yes Plan: Resolving nicely. She is finishing a course of Keflex. She will only need another day or 2 (4) Hyperkalemia Is this a current diagnosis for this admission?: Yes Plan: Resolved, patiromer stopped (5) Morbid obesity with BMI of 40.0-44.9, adult Is this a current diagnosis for this admission?: Yes Plan: Significant risk for comorbidities. I believe this is adding obesity hypoventilation to her already significant list of comorbidities. She thought that there was something wrong with her abdomen CT scan today showed nothing like a mass or hernia, so this is just her body habitus. (6) Acute respiratory failure with hypoxia Is this a current diagnosis for this admission?: Yes Plan: She does have a history of COPD and congestive heart failure. Oxygen supplementation to keep saturation between 88 and 94%. She told me she is on oxygen at home. Diuresis should also help her keep from having any trouble breathing. (7) COPD exacerbation Is this a current diagnosis for this admission?: Yes Plan: The patient is on Brio Ellipta with as needed Xopenex nebulizers. No steroids at this point. Resolved (8) Diabetes mellitus type 2 in obese Is this a current diagnosis for this admission?: Yes Plan: Currently on Lantus and a sliding scale. Lantus was increased today to 24 units twice daily. - Time Time Spent with patient: 25-34 minutes - Plan Summary Plan Summary: She is being evaluated by Digna Pillai. She is medically stable for discharge once a bed becomes available.
[2019-02-23] MEDS: ATORVASTATIN CALCIUM 40 MG TABLET PO SCH (22:23)
[2019-02-23] MEDS: ONDANSETRON 4 MG TAB.RAPDIS PO PRN (23:58)
[2019-02-24 04:50] LABS: BLOOD UREA NITROGEN 64 mg/dL (7-20); CALCIUM 8.2 mg/dL (8.4-10.2); GLUCOSE 125 mg/dL (75-110); POTASSIUM 5.3 mmol/L (3.6-5.0)
[2019-02-24 04:55] LABS: CARBON DIOXIDE 29 mmol/L (22-30); CHLORIDE 105 mmol/L (98-107); SODIUM 138.2 mmol/L (137-145)
[2019-02-24 05:03] LABS: ANION GAP 4 (5-19)
[2019-02-24] MEDS: CEPHALEXIN 500 MG CAPSULE PO SCH (05:29)
[2019-02-24] MEDS: FUROSEMIDE INJ/PF 20 MG/2 ML SDV IV SCH (05:30)
[2019-02-24] MEDS: HEPARIN SOD (PORCINE) 5,000 UNIT/ML 1 ML SYRINGE SUBCUT SCH ×3 (05:32→23:26)
[2019-02-24] MEDS: INSULIN LISPRO 100 UNIT/ML 3 ML VIAL SUBCUT SCH ×5 (07:30→23:12)
[2019-02-24] MEDS ORDERED: ALBUTEROL SULFATE HFA (90 MCG/PUFF) 200 PUFF/8.5 GM MDI IH PRN (08:49)
[2019-02-24] MEDS ORDERED: SODIUM POLYSTYRENE SULFONATE 15 GM/60 ML PO ONE (08:51)
--- NOTE | 2019-02-24 09:27 | PDOC PROGRESS REPORT ---
Subjective Progress Note for:: 02/24/19 Subjective:: 73 year old female with a past medical history of chronic obstructive pulmonary disease presented to the emergency department via EMS due to shortness of breath. EMS arrived patient was in respiratory distress with significant tachypnea. Oxygen level was 90%. Multiple visits to the ER and hospitalizations. The patient was treated with supplemental O2 as well as n ebulizers. While in the emergency department the patient was given Kayexalate as she was found to have a potassium of greater than 6. Patient has underlying chronic kidney disease and hyperkalemia is a chronic issue for her. According to the patient she had 2 days of excessive diarrhea. Patient stated that she was seen by her primary care provider prior to the diarrhea and her Lasix was doubled given increasing lower extremity edema. The patient states since the time the edema has improved but she is felt quite poorly. The patient was found to have a significant hyperkalemia and a cr of 4.31. Additionally the patient was complaining of left breast pain was found to have appearance of cellulitis as well as yeast under the breast. Given this collection of finding the patient has been referred to the hospitalist for admission and management. 02/24/2019 73-year-old female admitted for further acute on chronic renal insufficiency, COPD exacerbation and hyperkalemia and cellulitis of the left breast as well as a yeast infection under the left breast. Nephrology on board. Admission creatinine is more than 4 and it is improved to 1.68 and gradually going back up again to 2.1 today. Patient denies any specific complaints except for requesting to put back on her pain medications. She is also complaining of right shoulder pain requesting for x-rays. Pulse ox is 100% on 5 L. Plan is to decrease the same to 3 L and to check the pulse ox. To repeat the chest x-ray and BNP today. Reason For Visit: COPD EXACERBATION,ROSA Physical Exam Vital Signs: Temp Pulse Resp BP Pulse Ox 98.2 F 51 L 16 154/46 H 100 02/24/19 04:19 02/24/19 04:19 02/24/19 04:19 02/24/19 04:19 02/24/19 04:19 Intake & Output 02/23/19 02/24/19 02/25/19 06:59 06:59 06:59 Intake Total 266 Output Total 1450 1325 Balance -1184 -1325 Weight 110 kg 110 kg General appearance: PRESENT: no acute distress, obese Head exam: PRESENT: atraumatic Eye exam: PRESENT: PERRLA Ear exam: PRESENT: normal external ear exam Mouth exam: PRESENT: moist, tongue midline Teeth exam: PRESENT: poor dentation Neck exam: ABSENT: carotid bruit, JVD, lymphadenopathy, thyromegaly Respiratory exam: PRESENT: crackles, decreased breath sounds, rhonchi Cardiovascular exam: PRESENT: bradycardia Pulses: PRESENT: normal dorsalis pedis pul GI/Abdominal exam: PRESENT: normal bowel sounds, soft. ABSENT: distended, guarding, mass, organolmegaly, rebound, tenderness Extremities exam: PRESENT: full ROM. ABSENT: calf tenderness, clubbing, pedal edema Neurological exam: PRESENT: alert, awake, oriented to person, oriented to place, oriented to time, oriented to situation, CN II-XII grossly intact. ABSENT: motor sensory deficit Psychiatric exam: PRESENT: appropriate affect, normal mood. ABSENT: homicidal ideation, suicidal ideation Results Laboratory Results: 02/22/19 13:30 02/24/19 03:55 02/24/19 03:55 Sodium 138.2 Potassium 5.3 H Chloride 105 Carbon Dioxide 29 Anion Gap 4 L BUN 64 H Creatinine 2.10 H Est GFR ( Amer) 28 L Est GFR (Non-Af Amer) 23 L Glucose 125 H Calcium 8.2 L 02/14/19 02/14/19 02/22/19 14:50 14:50 13:30 Creatine Kinase 112 CK-MB (CK-2) 2.05 Troponin I < 0.012 0.016 Impressions: Breast Ultrasound 02/14/19 17:51 IMPRESSION: No evidence of abscess. Thickened scan and breast tissue edema is consistent with cellulitis/mastitis. Abdomen/Pelvis CT 02/19/19 00:00 IMPRESSION: 1. Cardiomegaly with pulmonary vascular congestion and bilateral pleural effusions. 2. There is small amount of fluid in the colic gutter on the left. Diverticulosis coli. 3. Lumbar degenerative changes. 4. Subcutaneous edema. Chest X-Ray 02/22/19 00:00 IMPRESSION: 1. Fairly stable appearance of the chest. Diminished left basilar aeration with cardiomegaly and mild vascular congestion. Assessment and Plan - Diagnosis (1) Acute renal failure superimposed on stage 3 chronic kidney disease Qualifiers: Acute renal failure type: unspecified Qualified Code(s): N17.9 - Acute kidney failure, unspecified; N18.3 - Chronic kidney disease, stage 3 (moderate) Is this a current diagnosis for this admission?: Yes Plan: Resolved. Nephrology has stopped her IV fluids and started some Lasix to help remove some excess accumulated fluid. She is back on oral Lasix, monitoring her fluid intake. 02/[id number]-old female admitted for acute on chronic renal failure nephrology on board. Admission creatinine was 2.63 latest creatinine is 2.1. Patient is on Lasix 20 mg IV every 8 hours plan is to change the Lasix to 20 mg p.o. twice daily. To do the chest x-ray and repeat the BNP levels today. Patient is nonoliguric urinary output is 1450 yesterday with a negative balance of 1.1 L. Looks like her baseline creatinine may be around 1.6-1.8. (2) Anemia of chronic disease Is this a current diagnosis for this admission?: Yes Plan: We will repeat CBC in the a.m. 02/24/2019 patient's hemoglobin is 8.1 stable. Patient is receiving Procrit injections as per nephrology recommendations. To repeat the labs tomorrow. (3) Cellulitis of left breast Is this a current diagnosis for this admission?: Yes Plan: Resolving nicely. She is finishing a course of Keflex. She will only need another day or 2 02/24/2019-patient is receiving cephalexin for her left breast cellulitis. Afebrile. T-max is 98.2. wbc count is 8.0. Blood cultures are negative. Plan to discontinue antibiotics from today. (4) Hyperkalemia Is this a current diagnosis for this admission?: Yes Plan: Resolved, patiromer stopped 02/24/2019-serum potassium level today is 5.3. Try to give Kayexalate unfortunately in the back order. To give a Veltassa 24.6 g today. plan to do the labs tomorrow. (5) Morbid obesity with BMI of 40.0-44.9, adult Is this a current diagnosis for this admission?: Yes Plan: Significant risk for comorbidities. I believe this is adding obesity hypoventilation to her already significant list of comorbidities. She thought that there was something wrong with her abdomen CT scan today showed nothing like a mass or hernia, so this is just her body habitus. 02/24/2019-patient's BMI is more than 40 may be causing obesity hypoventilation syndrome. Diet exercise lifestyle modifications are discussed with the patient. Dietary consult is going to be requested. (6) Hypertension Is this a current diagnosis for this admission?: No Plan: 02/24/2019-patient history of chronic hypertension presently on Alupent 10 mg daily, lisinopril 10 mg daily, Lasix 20 mg p.o. twice daily today blood pressure is 154/46. Low-sodium diet low-carb diet was recommended. Plan to check the blood pressures every shift. (7) Acute respiratory failure with hypoxia Is this a current diagnosis for this admission?: Yes Plan: She does have a history of COPD and congestive heart failure. Oxygen supplementation to keep saturation between 88 and 94%. She told me she is on oxygen at home. Diuresis should also help her keep from having any trouble breathing. 02/24/2019-patient has history of COPD patient is on oxygen at home 2 L. Pulse ox is 100% on 5 L this morning. Plan to decrease the present to 3 L on check the pulse ox is again. Plan to repeat the chest x-ray. Underlying CHF may be also contributing factor for hypoxia. (8) Diabetes mellitus type 2 in obese Is this a current diagnosis for this admission?: Yes Plan: Currently on Lantus and a sliding scale. Lantus was increased today to 24 units twice daily. 02/24/2019-patient has history of type 2 diabetes mellitus. Latest blood sugar is 129. On Lantus 24 units twice a day. Plan to check hemoglobin A1c tomorrow. Dietary consult was requested. (10) CHF exacerbation Qualifiers: Heart failure type: diastolic Qualified Code(s): I50.33 - Acute on chronic diastolic (congestive) heart failure Is this a current diagnosis for this admission?: No Plan: 02/24/2019-patient has history of congestive heart failure. Echocardiogram was done in January this year shows normal left ventricular ejection fraction. At the same time it showing grade 2/grade 4 mild to moderate diastolic dysfunction. Most likely patient is a chronic diastolic heart failure. Plan to repeat the chest x-ray and BNP level today. Presently on Lasix 20 mg p.o. twice daily. To check daily weights. Placed on fluid restriction 1500 mL/day. (11) Atrial fibrillation Qualifiers: Atrial fibrillation type: paroxysmal Qualified Code(s): I48.0 - Paroxysmal atrial fibrillation Is this a current diagnosis for this admission?: Yes Plan: Good heart rate control on metoprolol. No change in regimen. 02/24/2019-patient has chronic atrial fibrillation. Not on anticoagulation. Pre sently heart rate is 51. Metoprolol 20 mg p.o. daily is discontinued. Plan is to continue the present management. Plan to start on Eliquis 2.5 mg p.o. twice daily if it is okay with the patient. - Time Time Spent with patient: 25-34 minutes Medications reviewed and adjusted accordingly: Yes Anticipated discharge: Home
[2019-02-24] MEDS: DIPHENHYDRAMINE HCL 25 MG CAPSULE PO SCH ×2 (09:46→23:11)
[2019-02-24] MEDS ORDERED: PATIROMER 8.4 GM SUSP PACKET PO ONE (10:00)
[2019-02-24] MEDS ORDERED: (PENDING PHARMACY ID) (Fenofibrate [Fenofibrate] 160 MG) PO SCH (10:00)
[2019-02-24] MEDS ORDERED: (PENDING PHARMACY ID) (Fluticasone/Salmeterol 1 INH) IH SCH (10:00)
[2019-02-24] MEDS ORDERED: (PENDING PHARMACY ID) (Telmisartan [Micardis 20 Mg Tablet] 20 MG) PO SCH (10:00)
[2019-02-24] MEDS: OXYCODONE-ACETAMINOPHEN 5-325 MG TABLET PO PRN ×2 (11:06→17:32)
[2019-02-24] MEDS: APIXABAN 2.5 MG TABLET PO SCH ×2 (11:07→17:31)
[2019-02-24] MEDS: ISOSORBIDE MONONITRATE 60 MG TAB.ER.24H PO SCH (11:07)
[2019-02-24] MEDS: CLOPIDOGREL BISULFATE 75 MG TABLET PO SCH (11:07)
[2019-02-24] MEDS: AMLODIPINE BESYLATE 10 MG TABLET PO SCH (11:07)
[2019-02-24] MEDS: FUROSEMIDE 20 MG TABLET PO SCH ×2 (11:07→17:31)
[2019-02-24] MEDS: LISINOPRIL 10 MG TABLET PO SCH (11:07)
[2019-02-24] MEDS: ASPIRIN 81 MG TABLET, CHEWABLE PO SCH (11:07)
[2019-02-24] MEDS: GABAPENTIN 300 MG CAPSULE PO SCH ×2 (11:07→23:10)
[2019-02-24] MEDS: DOCUSATE SODIUM 100 MG CAPSULE PO SCH (11:07)
[2019-02-24] MEDS: NYSTATIN/DEXAMETH/DIPHEN SUSP 120 ML PO SCH ×3 (11:08→18:38)
[2019-02-24] MEDS: INSULIN GLARGINE,HUM.REC.ANLOG 1,000 UNIT/10 ML VIAL SUBCUT SCH ×3 (11:08→23:11)
[2019-02-24] MEDS: EZETIMIBE 10 MG TABLET PO SCH (11:11)
--- NOTE | 2019-02-24 12:08 | RADIOLOGY REPORT (SQ) ---
EXAM DESCRIPTION: CHEST 2 VIEWS COMPLETED DATE/TIME: 02/24/2019 11:45 am REASON FOR STUDY: chf COMPARISON: 02/22/2019. EXAM PARAMETERS: NUMBER OF VIEWS: two views TECHNIQUE: Digital Frontal and Lateral radiographic views of the chest acquired. RADIATION DOSE: NA LIMITATIONS: none FINDINGS: LUNGS AND PLEURA: Stable elevation of the right hemidiaphragm. Faint airspace disease in the left lung. No significant change. MEDIASTINUM AND HILAR STRUCTURES: No masses or contour abnormalities. HEART AND VASCULAR STRUCTURES: Borderline cardiac enlargement. Mild vascular prominence. BONES: No acute findings. HARDWARE: Sternotomy wires and coronary bypass markers. Clips in the upper abdomen. OTHER: No other significant finding. IMPRESSION: STABLE APPEARANCE. TECHNICAL DOCUMENTATION: JOB ID: [id number] [employer]- All Rights Reserved Reading location - IP/workstation name: [email or web address]
--- NOTE | 2019-02-24 12:11 | RADIOLOGY REPORT (SQ) ---
EXAM DESCRIPTION: SHOULDER RIGHT 2 OR MORE VIEWS COMPLETED DATE/TIME: 02/24/2019 11:46 am REASON FOR STUDY: rt shoulder pain COMPARISON: None. NUMBER OF VIEWS: Three views. TECHNIQUE: Internal rotation, external rotation, and Y view images acquired of the right shoulder. LIMITATIONS: None. FINDINGS: MINERALIZATION: Normal. BONES: No acute fracture or dislocation. Small osteophytes. No worrisome bone lesions. JOINTS: No dislocation. Narrowing of the subacromial space. VISUALIZED LUNGS AND RIBS: No pneumothorax. No rib fracture. SOFT TISSUES: No radiopaque foreign body. OTHER: No other significant finding. IMPRESSION: DEGENERATIVE CHANGES. NO ACUTE FINDINGS. TECHNICAL DOCUMENTATION: JOB ID: [id number] [employer]- All Rights Reserved Reading location - IP/workstation name: [email or web address]
[2019-02-24] MEDS: FLUTICASONE/VILANTEROL 200-25 MCG/DOSE IH SCH (15:19)
[2019-02-24] MEDS: MONTELUKAST SODIUM 10 MG TABLET PO SCH (17:31)
--- NOTE | 2019-02-24 18:17 | PDOC PROGRESS REPORT ---
Subjective Progress Note for:: 02/24/19 Subjective:: Patient is doing fine. She is still making adequate amount of urine output. She was switched to oral furosemide today. She said she has a little bit of nausea and constipation but otherwise no other complaints. She is awaiting rehab placement. Reason For Visit: COPD EXACERBATION,ROSA Physical Exam Vital Signs: Temp Pulse Resp BP Pulse Ox 97.6 F 63 18 165/54 H 97 02/24/19 08:00 02/24/19 08:00 02/24/19 08:00 02/24/19 08:00 02/24/19 09:16 Intake & Output 02/23/19 02/24/19 02/25/19 06:59 06:59 06:59 Intake Total 266 Output Total 1450 1325 Balance -1184 -1325 Weight 110 kg 110 kg Exam: General appearance: PRESENT: no acute distress, cooperative, well-developed, well-nourished Head exam: PRESENT: atraumatic, normocephalic Eye exam: PRESENT: conjunctiva pale, PERRLA. ABSENT: scleral icterus Neck exam: ABSENT: JVD Respiratory exam: PRESENT: Diminished breath sounds. Occasional basal crackles ABSENT: rhonchi, unlabored, wheezes Cardiovascular exam: PRESENT: Regular rate rhythm -+S1, +S2. ABSENT: diastolic murmur, systolic murmur GI/Abdominal exam: PRESENT: normal bowel sounds, soft. ABSENT: guarding, mass, tenderness Extremities exam: Grade 2 bilateral lower extremity pitting edema Neurological exam: PRESENT: alert, awake, oriented to person, place and time. Skin exam: PRESENT: dry, warm, Cardiovascular exam: PRESENT: +S1, +S2, systolic murmur GI/Abdominal exam: PRESENT: distended, normal bowel sounds, soft. ABSENT: organomegaly, tenderness Results Laboratory Results: 02/22/19 13:30 02/24/19 03:55 02/24/19 03:55 Sodium 138.2 Potassium 5.3 H Chloride 105 Carbon Dioxide 29 Anion Gap 4 L BUN 64 H Creatinine 2.10 H Est GFR ( Amer) 28 L Est GFR (Non-Af Amer) 23 L Glucose 125 H Calcium 8.2 L 02/14/19 02/14/19 02/22/19 14:50 14:50 13:30 Creatine Kinase 112 CK-MB (CK-2) 2.05 Troponin I < 0.012 0.016 NT-Pro-B Natriuret Pep 02/24/19 03:55 Creatine Kinase CK-MB (CK-2) Troponin I NT-Pro-B Natriuret Pep 4580 H Impressions: Breast Ultrasound 02/14/19 17:51 IMPRESSION: No evidence of abscess. Thickened scan and breast tissue edema is consistent with cellulitis/mastitis. Abdomen/Pelvis CT 02/19/19 00:00 IMPRESSION: 1. Cardiomegaly with pulmonary vascular congestion and bilateral pleural effusions. 2. There is small amount of fluid in the colic gutter on the left. Diverticulosis coli. 3. Lumbar degenerative changes. 4. Subcutaneous edema. Chest X-Ray 02/22/19 00:00 IMPRESSION: 1. Fairly stable appearance of the chest. Diminished left basilar aeration with cardiomegaly and mild vascular congestion. Assessment & Plan - Diagnosis (1) Acute renal failure superimposed on stage 3 chronic kidney disease Qualifiers: Acute renal failure type: unspecified Qualified Code(s): N17.9 - Acute kidney failure, unspecified; N18.3 - Chronic kidney disease, stage 3 (moderate) Is this a current diagnosis for this admission?: Yes Plan: Kidney function has improved from creatinine of 4.63. Currently kidney function has been stabilizing anywhere between 1.6-1.8. Her creatinine today is a little bit elevated. This can be actually due to the diuretics which she does need. We just have to monitor her closely to see where her kidney function is going to stabilize with control of her edema. She is nonoliguric and has a good diuretic response. Continue current diuretics at current dose. She does not need any urgent renal replacement therapy at this time. Since patient has mentioned a plan for cardiac catheterization, I discussed with the patient the effect of contrast with doing cardiac catheterization to the kidney function with possibility of worsening and requiring hemodialysis after. Patient will need to speak to her medicine technologist and see if this is really necessary and if it does then she needs to just accept the risk. (2) Anemia of chronic renal failure, stage 3 (moderate) Is this a current diagnosis for this admission?: Yes Plan: Adequate iron stores. Currently on Procrit. (3) Hypertension Is this a current diagnosis for this admission?: No Plan: Well controlled. (4) CHF (congestive heart failure) Qualifiers: Heart failure type: unspecified Heart failure chronicity: acute on chronic Qualified Code(s): I50.9 - Heart failure, unspecified Is this a current diagnosis for this admission?: Yes Plan: Clinically improving. However still in hypervolemic state so we will continue diuresis. (5) Diabetes mellitus type 2 in obese Is this a current diagnosis for this admission?: Yes Plan: Needs better control. Defer to hospitalist. - Time Time with patient: 15-25 minutes
[2019-02-24] MEDS: ATORVASTATIN CALCIUM 40 MG TABLET PO SCH (23:10)
[2019-02-24] MEDS ORDERED: MAGNESIUM HYDROXIDE SUSP 30 ML UDCUP PO PRN (23:32)
[2019-02-25] MEDS: OXYCODONE-ACETAMINOPHEN 5-325 MG TABLET PO PRN ×3 (00:05→18:30)
[2019-02-25 05:03] LABS: ABSOLUTE EOSINOPHILS # (AUTO) 0.3 10^3/uL (0.0-0.6); ABSOLUTE LYMPHOCYTES (AUTO) 0.8 10^3/uL (0.5-4.7); ABSOLUTE MONOCYTES (AUTO) 0.5 10^3/uL (0.1-1.4); ABSOLUTE NEUT (AUTO) 3.2 10^3/uL (1.7-8.2); BASOPHILS % (AUTO) 0.9 % (0-2); EOSINOPHILS % (AUTO) 6.6 % (0-6); HEMATOCRIT 21.9 % (36.0-47.0); LYMPHOCYTES % (AUTO) 16.7 % (13-45); MEAN CORPUSCULAR HGB CONC 33.9 g/dL (32.0-36.0); MEAN CORPUSCULAR VOLUME 92 fl (80-97); MONOCYTES % (AUTO) 10.8 % (3-13); RED CELL DISTRIBUTION WIDTH 15.6 % (11.5-14.0); TOTAL CELLS COUNTED % (AUTO) 100 %; WHITE BLOOD COUNT 4.9 10^3/uL (4.0-10.5)
[2019-02-25 05:27] LABS: ALANINE AMINOTRANSFERASE 26 U/L (9-52); ALBUMIN 2.7 g/dL (3.5-5.0); ALKALINE PHOSPHATASE 66 U/L (38-126); ANION GAP 5 (5-19); ASPARTATE AMINO TRANSFERASE 28 U/L (14-36); BILIRUBIN,DIRECT 0.3 mg/dL (0.0-0.4); BILIRUBIN,TOTAL 0.3 mg/dL (0.2-1.3); BLOOD UREA NITROGEN 65 mg/dL (7-20); CALCIUM 8.2 mg/dL (8.4-10.2); CARBON DIOXIDE 28 mmol/L (22-30); CHLORIDE 104 mmol/L (98-107); GLUCOSE 175 mg/dL (75-110); SODIUM 136.6 mmol/L (137-145); TOTAL PROTEIN 5.1 g/dL (6.3-8.2)
[2019-02-25 05:45] LABS: HEMOGLOBIN 7.4 g/dL (12.0-15.5); PLATELET COUNT 95 10^3/uL (150-450)
[2019-02-25] MEDS: HEPARIN SOD (PORCINE) 5,000 UNIT/ML 1 ML SYRINGE SUBCUT SCH ×3 (06:22→22:09)
--- NOTE | 2019-02-25 09:39 | PDOC PROGRESS REPORT ---
Subjective Progress Note for:: 02/25/19 Subjective:: 73 year old female with a past medical history of chronic obstructive pulmonary disease presented to the emergency department via EMS due to shortness of breath. EMS arrived patient was in respiratory distress with significant tachypnea. Oxygen level was 90%. Multiple visits to the ER and hospitalizations. The patient was treated with supplemental O2 as well as n ebulizers. While in the emergency department the patient was given Kayexalate as she was found to have a potassium of greater than 6. Patient has underlying chronic kidney disease and hyperkalemia is a chronic issue for her. According to the patient she had 2 days of excessive diarrhea. Patient stated that she was seen by her primary care provider prior to the diarrhea and her Lasix was doubled given increasing lower extremity edema. The patient states since the time the edema has improved but she is felt quite poorly. The patient was found to have a significant hyperkalemia and a cr of 4.31. Additionally the patient was complaining of left breast pain was found to have appearance of cellulitis as well as yeast under the breast. Given this collection of finding the patient has been referred to the hospitalist for admission and management. 02/24/2019 73-year-old female admitted for further acute on chronic renal insufficiency, COPD exacerbation and hyperkalemia and cellulitis of the left breast as well as a yeast infection under the left breast. Nephrology on board. Admission creatinine is more than 4 and it is improved to 1.68 and gradually going back up again to 2.1 today. Patient denies any specific complaints except for requesting to put back on her pain medications. She is also complaining of right shoulder pain requesting for x-rays. Pulse ox is 100% on 5 L. Plan is to decrease the same to 3 L and to check the pulse ox. To repeat the chest x-ray and BNP today. 02/[id number]-[place]-old female admitted for acute on chronic renal insufficiency creatinine was 2.08 improving, had a COPD exacerbation and hyperkalemia. Left breast cellulitis resolved and antibiotics are discontinued. Patient hemoglobin dropped to 7.4 plan to transfuse 1 unit today to give 40 mg of IV Lasix after the blood transfusion. shoulder xray done yesterday shows does not see any acute changes chest x-ray was negative for acute changes also., Patient is comfortably in the. Denies any complaints. Waiting for placement. Reason For Visit: COPD EXACERBATION,ROSA Physical Exam Vital Signs: Temp Pulse Resp BP Pulse Ox 98.5 F 55 L 17 127/49 H 100 02/24/19 22:56 02/25/19 04:34 02/24/19 22:56 02/24/19 22:56 02/25/19 04:34 Intake & Output 02/24/19 02/25/19 02/26/19 06:59 06:59 06:59 Intake Total 337 Output Total 1325 2200 Balance -1325 -1863 Weight 110 kg 110 kg General appearance: PRESENT: no acute distress, obese Head exam: PRESENT: atraumatic Eye exam: PRESENT: PERRLA Mouth exam: PRESENT: moist, tongue midline Teeth exam: PRESENT: poor dentation Neck exam: ABSENT: carotid bruit, JVD, lymphadenopathy, thyromegaly Respiratory exam: PRESENT: decreased breath sounds Cardiovascular exam: PRESENT: bradycardia, irregular rhythm, systolic murmur Vascular exam: PRESENT: normal capillary refill GI/Abdominal exam: PRESENT: normal bowel sounds, soft. ABSENT: distended, guarding, mass, organolmegaly, rebound, tenderness Extremities exam: PRESENT: +1 edema Neurological exam: PRESENT: alert, awake, oriented to person, oriented to place, oriented to time, oriented to situation, CN II-XII grossly intact. ABSENT: motor sensory deficit Psychiatric exam: PRESENT: appropriate affect, normal mood. ABSENT: homicidal ideation, suicidal ideation Results Laboratory Results: 02/25/19 04:35 02/25/19 04:35 02/25/19 02/25/19 04:35 04:35 WBC 4.9 RBC 2.40 L Hgb 7.4 L Hct 21.9 L MCV 92 MCH 31.0 MCHC 33.9 RDW 15.6 H Plt Count 95 L Seg Neutrophils % 65.0 Lymphocytes % 16.7 Monocytes % 10.8 Eosinophils % 6.6 H Basophils % 0.9 Absolute Neutrophils 3.2 Absolute Lymphocytes 0.8 Absolute Monocytes 0.5 Absolute Eosinophils 0.3 Absolute Basophils 0.0 Sodium 136.6 L Potassium 5.0 Chloride 104 Carbon Dioxide 28 Anion Gap 5 BUN 65 H Creatinine 2.08 H Est GFR ( Amer) 28 L Est GFR (Non-Af Amer) 23 L Glucose 175 H Calcium 8.2 L Magnesium 2.0 Total Bilirubin 0.3 AST 28 ALT 26 Alkaline Phosphatase 66 Total Protein 5.1 L Albumin 2.7 L 02/14/19 02/14/19 02/22/19 14:50 14:50 13:30 Creatine Kinase 112 CK-MB (CK-2) 2.05 Troponin I < 0.012 0.016 NT-Pro-B Natriuret Pep 02/24/19 03:55 Creatine Kinase CK-MB (CK-2) Troponin I NT-Pro-B Natriuret Pep 4580 H Impressions: Breast Ultrasound 02/14/19 17:51 IMPRESSION: No evidence of abscess. Thickened scan and breast tissue edema is consistent with cellulitis/mastitis. Abdomen/Pelvis CT 02/19/19 00:00 IMPRESSION: 1. Cardiomegaly with pulmonary vascular congestion and bilateral pleural effusions. 2. There is small amount of fluid in the colic gutter on the left. Diverticulosis coli. 3. Lumbar degenerative changes. 4. Subcutaneous edema. Chest X-Ray 02/24/19 00:00 IMPRESSION: STABLE APPEARANCE. Shoulder X-Ray 02/24/19 00:00 IMPRESSION: DEGENERATIVE CHANGES. NO ACUTE FINDINGS. Assessment and Plan - Diagnosis (1) Acute renal failure superimposed on stage 3 chronic kidney disease Qualifiers: Acute renal failure type: unspecified Qualified Code(s): N17.9 - Acute kidney failure, unspecified; N18.3 - Chronic kidney disease, stage 3 (moderate) Is this a current diagnosis for this admission?: Yes Plan: Resolved. Nephrology has stopped her IV fluids and started some Lasix to help remove some excess accumulated fluid. She is back on oral Lasix, monitoring her fluid intake. 02/24/[id number]dncd-old female admitted for acute on chronic renal failure nephrology on board. Admission creatinine was 4.63 latest creatinine is 2.1. Patient is on Lasix 20 mg IV every 8 hours plan is to change the Lasix to 20 mg p.o. twice daily. To do the chest x-ray and repeat the BNP levels today. Patient is nonoliguric urinary output is 1450 yesterday with a negative balance of 1.1 L. Looks like her baseline creatinine may be around 1.6-1.8. 02/25/2019-patient admitted with a creatinine of 4.63 and latest creatinine is 2.08 acute on chronic renal failure is resolving. Baseline creatinine probably is around 1.8. Patient is presently on Lasix 20 mg p.o. twice daily. Nonoliguric. Urinary output is 1325 yesterday negative balance of 1300. Plan is to continue the p.o. Lasix. (2) Anemia of chronic disease Is this a current diagnosis for this admission?: Yes Plan: We will repeat CBC in the a.m. 02/24/2019 patient's hemoglobin is 8.1 stable. Patient is receiving Procrit injections as per nephrology recommendations. To repeat the labs tomorrow. 02/25/2019-patient hemoglobin dropped to 7.4. It dropped from 8.1. Plan to give 1 unit of PRBC today. Patient is receiving Procrit injections. Anemia of chronic disease most likely secondary to underlying chronic kidney disease. (3) Cellulitis of left breast Is this a current diagnosis for this admission?: Yes Plan: Resolving nicely. She is finishing a course of Keflex. She will only need another day or 2 02/24/2019-patient is receiving cephalexin for her left breast cellulitis. Afebrile. T-max is 98.2. wbc count is 8.0. Blood cultures are negative. Plan to discontinue antibiotics from today. 02/25/2019-left breast cellulitis is resolved. Cephalexin was discontinued yesterday. T-max is 98.5. Blood cultures are negative. (4) Hyperkalemia Is this a current diagnosis for this admission?: Yes Plan: Resolved, patiromer stopped 02/24/2019-serum potassium level today is 5.3. Try to give Kayexalate unfortunately in the back order. To give a Veltassa 24.6 g today. plan to do the labs tomorrow. 02/25/2019-patient serum potassium is 5.0. Yesterday it was 5.3. She was given a Veltassa yesterday. Plan to repeat the labs tomorrow. (5) Morbid obesity with BMI of 40.0-44.9, adult Is this a current diagnosis for this admission?: Yes (6) Hypertension Is this a current diagnosis for this admission?: No Plan: 02/24/2019-patient history of chronic hypertension presently on amlodepine 10 mg daily, lisinopril 10 mg daily, Lasix 20 mg p.o. twice daily today blood pressure is 154/46. Low-sodium diet low-carb diet was recommended. Plan to check the blood pressures every shift. 02/25/2019-patient blood pressure today is 127/50 stable. On amlodipine 10 mg daily, lisinopril 10 mg daily, Lasix 20 mg p.o. twice a day plan is to hold the lisinopril for now because of the acute on chronic kidney injury. Surprisingly patient is also on losartan 25 mg p.o. daily, plan is to continue losartan for now. to discontinue lisinopril. (7) Acute respiratory failure with hypoxia Is this a current diagnosis for this admission?: Yes Plan: She does have a history of COPD and congestive heart failure. Oxygen supplementation to keep saturation between 88 and 94%. She told me she is on oxygen at home. Diuresis should also help her keep from having any trouble breathing. 02/24/2019-patient has history of COPD patient is on oxygen at home 2 L. Pulse ox is 100% on 5 L this morning. Plan to decrease the present to 3 L on check the pulse ox is again. Plan to repeat the chest x-ray. Underlying CHF may be also contributing factor for hypoxia. 02/25/2019-patient has history of COPD on home oxygen. Pulse ox is 100% on 4 L today. Plan to request the nurse to decrease the oxygen requirements to 2 L and to check the pulse ox again. On examination patient is not in distress. Acute respiratory failure with hypoxia resolving. (8) Diabetes mellitus type 2 in obese Is this a current diagnosis for this admission?: Yes Plan: Currently on Lantus and a sliding scale. Lantus was increased today to 24 units twice daily. 02/24/2019-patient has history of type 2 diabetes mellitus. Latest blood sugar is 129. On Lantus 24 units twice a day. Plan to check hemoglobin A1c tomorrow. Dietary consult was requested. 02/25/2019-patient's latest blood sugar is 178. On Lantus 24 units subcu twice a day and insulin sliding scale before meals and at bedtime. Plan to increase the Lantus to 30 units twice a day and continue the sliding scale. Hemoglobin A1c is pending. (9) CHF exacerbation Qualifiers: Heart failure type: diastolic Qualified Code(s): I50.33 - Acute on chronic diastolic (congestive) heart failure Is this a current diagnosis for this admission?: No Plan: 02/24/2019-patient has history of congestive heart failure. Echocardiogram was done in January this year shows normal left ventricular ejection fraction. At the same time it showing grade 2/grade 4 mild to moderate diastolic dysfunction. Most likely patient is a chronic diastolic heart failure. Plan to repeat the chest x-ray and BNP level today. Presently on Lasix 20 mg p.o. twice daily. To check daily weights. Placed on fluid restriction 1500 mL/day. 02/25/2019-patient is on fluid restriction 1500 mL/day. Also on Lasix 20 mg p.o. twice a day chest x-ray shows mild vascular prominence. Pulse ox is 100% on 4 L. Recent echocardiogram shows normal left ventricular ejection fraction but she has chronic diastolic heart failure. On examination mild pedal edema present. Patient is going to receive Lasix 40 mg IV 1 dose after blood transfusion. (10) Atrial fibrillation Qualifiers: Atrial fibrillation type: paroxysmal Qualified Code(s): I48.0 - Paroxysmal atrial fibrillation Is this a current diagnosis for this admission?: Yes Plan: Good heart rate control on metoprolol. No change in regimen. 02/24/2019-patient has chronic atrial fibrillation. Not on anticoagulation. Presently heart rate is 51. Metoprolol 25 mg p.o. daily is discontinued. Plan is to continue the present management. Plan to start on Eliquis 2.5 mg p.o. twice daily if it is okay with the patient. 02/25/2019-patient has a chronic atrial fibrillation presently heart rate is 55 not on beta-blockers. Eliquis 2.5 mg p.o. twice a day. - Time Anticipated discharge: SNF
[2019-02-25] MEDS ORDERED: FUROSEMIDE INJ/PF 40 MG/4 ML SDV IV ONE (11:00)
[2019-02-25] MEDS: INSULIN LISPRO 100 UNIT/ML 3 ML VIAL SUBCUT SCH ×4 (11:03→22:03)
[2019-02-25] MEDS: LOSARTAN POTASSIUM 25 MG TABLET PO SCH (11:08)
[2019-02-25] MEDS: AMLODIPINE BESYLATE 10 MG TABLET PO SCH (11:08)
[2019-02-25] MEDS: ISOSORBIDE MONONITRATE 60 MG TAB.ER.24H PO SCH (11:16)
[2019-02-25] MEDS: ASPIRIN 81 MG TABLET, CHEWABLE PO SCH (11:17)
[2019-02-25] MEDS: FUROSEMIDE 20 MG TABLET PO SCH ×2 (11:17→18:29)
[2019-02-25] MEDS: NYSTATIN/DEXAMETH/DIPHEN SUSP 120 ML PO SCH ×3 (11:17→18:42)
[2019-02-25] MEDS: FLUTICASONE/VILANTEROL 200-25 MCG/DOSE IH SCH (11:17)
[2019-02-25] MEDS: GABAPENTIN 300 MG CAPSULE PO SCH ×2 (11:17→22:02)
[2019-02-25] MEDS: FENOFIBRATE NANOCRYSTALLIZED 145 MG TABLET PO SCH (11:18)
[2019-02-25] MEDS: APIXABAN 2.5 MG TABLET PO SCH ×2 (11:18→18:29)
[2019-02-25] MEDS: DOCUSATE SODIUM 100 MG CAPSULE PO SCH ×2 (11:18→18:29)
[2019-02-25] MEDS: CLOPIDOGREL BISULFATE 75 MG TABLET PO SCH (11:18)
[2019-02-25] MEDS: EZETIMIBE 10 MG TABLET PO SCH (11:18)
[2019-02-25] MEDS: INSULIN GLARGINE,HUM.REC.ANLOG 1,000 UNIT/10 ML VIAL SUBCUT SCH ×2 (12:07→22:03)
[2019-02-25] MEDS: EPOETIN ALFA INJ 20000 UNIT/1 ML VIAL (RENAL) SUBCUT SCH (12:07)
[2019-02-25] MEDS ORDERED: EPOETIN ALFA INJ 40000 UNIT/1 ML (RENAL) SUBCUT SCH (14:00)
--- NOTE | 2019-02-25 17:39 | PDOC PROGRESS REPORT ---
Subjective Progress Note for:: 02/25/19 Subjective:: Patient does not have any new complaints except for the continuous persistent constipation. She was attempted to be manually disimpacted by 1 of the nursing staff yesterday. Her hemoglobin is low today but she denies any blood from the urine and again from the stool. She is comfortable. She made a good urine output yesterday about 2200 mL. Reason For Visit: COPD EXACERBATION,ROSA Physical Exam Vital Signs: Temp Pulse Resp BP Pulse Ox 98.3 F 64 20 127/42 H 98 02/25/19 08:49 02/25/19 08:49 02/25/19 08:49 02/25/19 08:49 02/25/19 08:49 Intake & Output 02/24/19 02/25/19 02/26/19 06:59 06:59 06:59 Intake Total 337 Output Total 1325 2200 Balance -1325 -1863 Weight 110 kg 110 kg Exam: General appearance: PRESENT: no acute distress, cooperative, well-developed, well-nourished Head exam: PRESENT: atraumatic, normocephalic Eye exam: PRESENT: conjunctiva pale, PERRLA. ABSENT: scleral icterus Neck exam: ABSENT: JVD Respiratory exam: PRESENT: Normal breath sounds. ABSENT: crackles, rales, rhon chi, unlabored, wheezes Cardiovascular exam: PRESENT: Regular rate rhythm -+S1, +S2. ABSENT: diastolic murmur, systolic murmur GI/Abdominal exam: PRESENT: normal bowel sounds, soft. ABSENT: guarding, mass, tenderness Extremities exam: Grade 2 bilateral lower extremity pitting edema Neurological exam: PRESENT: alert, awake, oriented to person, place and time. Skin exam: PRESENT: dry, warm, positive pallor Cardiovascular exam: PRESENT: +S1, +S2, systolic murmur GI/Abdominal exam: PRESENT: distended, normal bowel sounds, soft. ABSENT: organomegaly, tenderness Results Laboratory Results: 02/25/19 04:35 02/25/19 04:35 02/25/19 02/25/19 02/25/19 04:35 04:35 07:54 WBC 4.9 RBC 2.40 L Hgb 7.4 L Hct 21.9 L MCV 92 MCH 31.0 MCHC 33.9 RDW 15.6 H Plt Count 95 L Seg Neutrophils % 65.0 Lymphocytes % 16.7 Monocytes % 10.8 Eosinophils % 6.6 H Basophils % 0.9 Absolute Neutrophils 3.2 Absolute Lymphocytes 0.8 Absolute Monocytes 0.5 Absolute Eosinophils 0.3 Absolute Basophils 0.0 Sodium 136.6 L Potassium 5.0 Chloride 104 Carbon Dioxide 28 Anion Gap 5 BUN 65 H Creatinine 2.08 H Est GFR ( Amer) 28 L Est GFR (Non-Af Amer) 23 L Glucose 175 H Calcium 8.2 L Magnesium 2.0 Total Bilirubin 0.3 AST 28 ALT 26 Alkaline Phosphatase 66 Total Protein 5.1 L Albumin 2.7 L Blood Type O POSITIVE Antibody Screen POSITIVE 02/14/19 02/14/19 02/22/19 14:50 14:50 13:30 Creatine Kinase 112 CK-MB (CK-2) 2.05 Troponin I < 0.012 0.016 NT-Pro-B Natriuret Pep 02/24/19 03:55 Creatine Kinase CK-MB (CK-2) Troponin I NT-Pro-B Natriuret Pep 4580 H Impressions: Breast Ultrasound 02/14/19 17:51 IMPRESSION: No evidence of abscess. Thickened scan and breast tissue edema is consistent with cellulitis/mastitis. Abdomen/Pelvis CT 02/19/19 00:00 IMPRESSION: 1. Cardiomegaly with pulmonary vascular congestion and bilateral pleural effusions. 2. There is small amount of fluid in the colic gutter on the left. Diverticulosis coli. 3. Lumbar degenerative changes. 4. Subcutaneous edema. Chest X-Ray 02/24/19 00:00 IMPRESSION: STABLE APPEARANCE. Shoulder X-Ray 02/24/19 00:00 IMPRESSION: DEGENERATIVE CHANGES. NO ACUTE FINDINGS. Assessment & Plan - Diagnosis (1) Acute renal failure superimposed on stage 3 chronic kidney disease Qualifiers: Acute renal failure type: unspecified Qualified Code(s): N17.9 - Acute kidney failure, unspecified; N18.3 - Chronic kidney disease, stage 3 (moderate) Is this a current diagnosis for this admission?: Yes Plan: Kidney function has improved from creatinine of 4.63. Currently kidney function has been stabilizing anywhere between 1.8-2.10. This can be actually due to the diuretics which she does need. We just have to monitor her closely to see where her kidney function is going to stabilize with control of her edema. She is nonoliguric and has a good diuretic response. Continue current diuretics at current dose. She does not need any urgent renal replacement therapy at this time. Since patient has mentioned a plan for cardiac catheterization, I discussed with the patient the effect of contrast with doing cardiac catheterization to the kidney function with possibility of worsening and requiring hemodialysis after. 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 (2) Anemia of chronic renal failure, stage 3 (moderate) Is this a current diagnosis for this admission?: Yes Plan: Adequate iron stores. Her hemoglobin suddenly dropped today to 7.4. I will increase her Procrit to 40,000 units subcu every week beginning today. If her hemoglobin is still less than 7.5 tomorrow I think patient needs to be transfused 2 units of packed RBC. Will check stool for occult blood. (3) Hypertension Is this a current diagnosis for this admission?: No Plan: Well controlled. (4) Constipation Is this a current diagnosis for this admission?: Yes Plan: Start her on lactulose today and tomorrow. (5) CHF (congestive heart failure) Qualifiers: Heart failure type: unspecified Heart failure chronicity: acute on chronic Qualified Code(s): I50.9 - Heart failure, unspecified Is this a current diagnosis for this admission?: Yes Plan: Clinically improving. However still in hypervolemic state so we will continue diuresis. (6) Diabetes mellitus type 2 in obese Is this a current diagnosis for this admission?: Yes Plan: Needs better control. Defer to hospitalist. - Time Time with patient: 15-25 minutes
[2019-02-25] MEDS: LACTULOSE SYRUP 20 GM/30 ML UDCUP PO SCH ×2 (18:29→22:09)
[2019-02-25] MEDS: MONTELUKAST SODIUM 10 MG TABLET PO SCH (18:30)
[2019-02-25] MEDS: DIPHENHYDRAMINE HCL 25 MG CAPSULE PO SCH (22:02)
[2019-02-25] MEDS: ATORVASTATIN CALCIUM 40 MG TABLET PO SCH (22:02)
[2019-02-26] MEDS: OXYCODONE-ACETAMINOPHEN 5-325 MG TABLET PO PRN ×3 (01:00→20:10)
[2019-02-26] MEDS: ONDANSETRON 4 MG TAB.RAPDIS PO PRN (03:27)
[2019-02-26] MEDS ORDERED: FUROSEMIDE INJ/PF 40 MG/4 ML SDV IV PRN (05:00)
[2019-02-26 06:02] LABS: ALANINE AMINOTRANSFERASE 34 U/L (9-52); ALBUMIN 2.9 g/dL (3.5-5.0); ALKALINE PHOSPHATASE 76 U/L (38-126); ANION GAP 6 (5-19); ASPARTATE AMINO TRANSFERASE 35 U/L (14-36); BILIRUBIN,DIRECT 0.3 mg/dL (0.0-0.4); BILIRUBIN,TOTAL 0.4 mg/dL (0.2-1.3); BLOOD UREA NITROGEN 59 mg/dL (7-20); CALCIUM 8.4 mg/dL (8.4-10.2); CARBON DIOXIDE 30 mmol/L (22-30); CHLORIDE 103 mmol/L (98-107); POTASSIUM 4.4 mmol/L (3.6-5.0); TOTAL PROTEIN 5.6 g/dL (6.3-8.2)
[2019-02-26 06:10] LABS: ABSOLUTE EOSINOPHILS # (AUTO) 0.4 10^3/uL (0.0-0.6); ABSOLUTE LYMPHOCYTES (AUTO) 1.3 10^3/uL (0.5-4.7); ABSOLUTE MONOCYTES (AUTO) 0.6 10^3/uL (0.1-1.4); ABSOLUTE NEUT (AUTO) 3.4 10^3/uL (1.7-8.2); BASOPHILS % (AUTO) 0.7 % (0-2); EOSINOPHILS % (AUTO) 6.3 % (0-6); HEMATOCRIT 23.6 % (36.0-47.0); LYMPHOCYTES % (AUTO) 22.3 % (13-45); MEAN CORPUSCULAR HGB CONC 33.2 g/dL (32.0-36.0); MEAN CORPUSCULAR VOLUME 93 fl (80-97); MONOCYTES % (AUTO) 10.8 % (3-13); RED BLOOD COUNT 2.53 10^6/uL (3.72-5.28); SEGMENTED NEUTROPHILS % (AUTO) 59.9 % (42-78); TOTAL CELLS COUNTED % (AUTO) 100 %; WHITE BLOOD COUNT 5.7 10^3/uL (4.0-10.5)
[2019-02-26 06:22] LABS: HEMOGLOBIN 7.8 g/dL (12.0-15.5); PLATELET COUNT 98 10^3/uL (150-450)
[2019-02-26 06:24] LABS: GLUCOSE 40 mg/dL (75-110)
[2019-02-26] MEDS: INSULIN LISPRO 100 UNIT/ML 3 ML VIAL SUBCUT SCH ×4 (08:01→22:35)
--- NOTE | 2019-02-26 09:38 | PDOC PROGRESS REPORT ---
Subjective Progress Note for:: 02/26/19 Subjective:: 73 year old female with a past medical history of chronic obstructive pulmonary disease presented to the emergency department via EMS due to shortness of breath. EMS arrived patient was in respiratory distress with significant tachypnea. Oxygen level was 90%. Multiple visits to the ER and hospitalizations. The patient was treated with supplemental O2 as well as n ebulizers. While in the emergency department the patient was given Kayexalate as she was found to have a potassium of greater than 6. Patient has underlying chronic kidney disease and hyperkalemia is a chronic issue for her. According to the patient she had 2 days of excessive diarrhea. Patient stated that she was seen by her primary care provider prior to the diarrhea and her Lasix was doubled given increasing lower extremity edema. The patient states since the time the edema has improved but she is felt quite poorly. The patient was found to have a significant hyperkalemia and a cr of 4.31. Additionally the patient was complaining of left breast pain was found to have appearance of cellulitis as well as yeast under the breast. Given this collection of finding the patient has been referred to the hospitalist for admission and management. 02/24/2019 73-year-old female admitted for further acute on chronic renal insufficiency, COPD exacerbation and hyperkalemia and cellulitis of the left breast as well as a yeast infection under the left breast. Nephrology on board. Admission creatinine is more than 4 and it is improved to 1.68 and gradually going back up again to 2.1 today. Patient denies any specific complaints except for requesting to put back on her pain medications. She is also complaining of right shoulder pain requesting for x-rays. Pulse ox is 100% on 5 L. Plan is to decrease the same to 3 L and to check the pulse ox. To repeat the chest x-ray and BNP today. 02/25/[id number]-yash-old female admitted for acute on chronic renal insufficiency creatinine was 2.08 improving, had a COPD exacerbation and hyperkalemia. Left breast cellulitis resolved and antibiotics are discontinued. Patient hemoglobin dropped to 7.4 plan to transfuse 1 unit today to give 40 mg of IV Lasix after the blood transfusion. shoulder xray done yesterday shows does not see any acute changes chest x-ray was negative for acute changes also., Patient is comfortably in the. Denies any complaints. Waiting for placement. 02/26/2019-patient's blood sugar dropped to 48 this morning. Presently on Lantus 30 units twice a day and insulin sliding scale. Hemoglobin A1c came back 5.9. I am going to decrease the Lantus to 20 units twice a day. And to continue sliding scale. Patient states she is breathing much better and swelling of the lower extremities improving. Waiting for placement. Reason For Visit: COPD EXACERBATION,ROSA Physical Exam Vital Signs: Temp Pulse Resp BP Pulse Ox 98.3 F 65 16 118/49 L 100 02/26/19 08:00 02/26/19 08:00 02/26/19 08:00 02/26/19 08:00 02/26/19 08:00 Intake & Output 02/25/19 02/26/19 02/27/19 06:59 06:59 06:59 Intake Total 337 1821 Output Total 2200 1250 Balance -1863 571 Weight 110 kg 113.3 kg General appearance: PRESENT: no acute distress, obese Head exam: PRESENT: atraumatic Eye exam: PRESENT: PERRLA Mouth exam: PRESENT: moist, tongue midline Teeth exam: PRESENT: poor dentation Neck exam: ABSENT: carotid bruit, JVD, lymphadenopathy, thyromegaly Respiratory exam: PRESENT: crackles, decreased breath sounds Cardiovascular exam: PRESENT: RRR, systolic murmur GI/Abdominal exam: PRESENT: normal bowel sounds, soft. ABSENT: distended, guarding, mass, organolmegaly, rebound, tenderness Extremities exam: PRESENT: full ROM. ABSENT: calf tenderness, clubbing, pedal edema Neurological exam: PRESENT: alert, awake, oriented to person, oriented to place, oriented to time, oriented to situation, CN II-XII grossly intact. ABSENT: motor sensory deficit Psychiatric exam: PRESENT: appropriate affect, normal mood. ABSENT: homicidal ideation, suicidal ideation Results Laboratory Results: 02/26/19 04:30 02/26/19 04:30 02/25/19 02/26/19 02/26/19 07:54 04:30 04:30 WBC 5.7 RBC 2.53 L Hgb 7.8 L Hct 23.6 L MCV 93 MCH 31.0 MCHC 33.2 RDW 16.0 H Plt Count 98 L Seg Neutrophils % 59.9 Lymphocytes % 22.3 Monocytes % 10.8 Eosinophils % 6.3 H Basophils % 0.7 Absolute Neutrophils 3.4 Absolute Lymphocytes 1.3 Absolute Monocytes 0.6 Absolute Eosinophils 0.4 Absolute Basophils 0.0 Sodium 139.0 Potassium 4.4 Chloride 103 Carbon Dioxide 30 Anion Gap 6 BUN 59 H Creatinine 1.88 H Est GFR ( Amer) 32 L Est GFR (Non-Af Amer) 26 L Glucose 40 L* Calcium 8.4 Magnesium 2.0 Total Bilirubin 0.4 AST 35 ALT 34 Alkaline Phosphatase 76 Total Protein 5.6 L Albumin 2.9 L Blood Type O POSITIVE Antibody Screen POSITIVE 02/14/19 02/14/19 02/22/19 14:50 14:50 13:30 Creatine Kinase 112 CK-MB (CK-2) 2.05 Troponin I < 0.012 0.016 NT-Pro-B Natriuret Pep 02/24/19 02/26/19 03:55 04:30 Creatine Kinase CK-MB (CK-2) Troponin I NT-Pro-B Natriuret Pep 4580 H 4130 H Impressions: Breast Ultrasound 02/14/19 17:51 IMPRESSION: No evidence of abscess. Thickened scan and breast tissue edema is consistent with cellulitis/mastitis. Abdomen/Pelvis CT 02/19/19 00:00 IMPRESSION: 1. Cardiomegaly with pulmonary vascular congestion and bilateral pleural effusions. 2. There is small amount of fluid in the colic gutter on the left. Diverticulosis coli. 3. Lumbar degenerative changes. 4. Subcutaneous edema. Chest X-Ray 02/24/19 00:00 IMPRESSION: STABLE APPEARANCE. Shoulder X-Ray 02/24/19 00:00 IMPRESSION: DEGENERATIVE CHANGES. NO ACUTE FINDINGS. Assessment and Plan - Diagnosis (1) Acute renal failure superimposed on stage 3 chronic kidney disease Qualifiers: Acute renal failure type: unspecified Qualified Code(s): N17.9 - Acute k idney failure, unspecified; N18.3 - Chronic kidney disease, stage 3 (moderate) Is this a current diagnosis for this admission?: Yes Plan: Resolved. Nephrology has stopped her IV fluids and started some Lasix to help remove some excess accumulated fluid. She is back on oral Lasix, monitoring her fluid intake. 02/24/[id number]-gbys-old female admitted for acute on chronic renal failure nephrology on board. Admission creatinine was 4.63 latest creatinine is 2.1. Patient is on Lasix 20 mg IV every 8 hours plan is to change the Lasix to 20 mg p.o. twice daily. To do the chest x-ray and repeat the BNP levels today. Patient is nonoliguric urinary output is 1450 yesterday with a negative balance of 1.1 L. Looks like her baseline creatinine may be around 1.6-1.8. 02/25/2019-patient admitted with a creatinine of 4.63 and latest creatinine is 2.08 acute on chronic renal failure is resolving. Baseline creatinine probably is around 1.8. Patient is presently on Lasix 20 mg p.o. twice daily. Nonoliguric. Urinary output is 1325 yesterday negative balance of 1300. Plan is to continue the p.o. Lasix. 02/26/[id number]-fyoa-old female admitted with serum creatinine 4.63 due to improved to 1.88. Most likely secondary to diuretic therapy. Nephrology on board. No need for renal replacement therapy. Presently on Lasix 20 mg p.o. twice daily. Patient's urinary output is 2.2 L yesterday. Negative balance of 1800 mL. Plan is to continue the present management. (2) Anemia of chronic disease Is this a current diagnosis for this admission?: Yes Plan: We will repeat CBC in the a.m. 02/24/2019 patient's hemoglobin is 8.1 stable. Patient is receiving Procrit injections as per nephrology recommendations. To repeat the labs tomorrow. 02/25/2019-patient hemoglobin dropped to 7.4. It dropped from 8.1. Plan to give 1 unit of PRBC today. Patient is receiving Procrit injections. Anemia of chronic disease most likely secondary to underlying chronic kidney disease. 02/26/2019-patient hemoglobin is 7.8 today. Patient received Procrit 40,000 unit s yesterday. Plan to give the medication every week. If the hemoglobin drops to less than 7.5 we will give 2 units of PRBC. (3) Cellulitis of left breast Is this a current diagnosis for this admission?: Yes Plan: Resolving nicely. She is finishing a course of Keflex. She will only need another day or 2 02/24/2019-patient is receiving cephalexin for her left breast cellulitis. Afebrile. T-max is 98.2. wbc count is 8.0. Blood cultures are negative. Plan to discontinue antibiotics from today. 02/25/2019-left breast cellulitis is resolved. Cephalexin was discontinued yesterday. T-max is 98.5. Blood cultures are negative. 02/26/2019-left breast cellulitis that is resolved. Patient is off the antibiotics. Afebrile. Her WBC is normal. Cultures are negative. (4) Hyperkalemia Is this a current diagnosis for this admission?: Yes Plan: Resolved, patiromer stopped 02/24/2019-serum potassium level today is 5.3. Try to give Kayexalate unfortunat venessa in the back order. To give a Veltassa 24.6 g today. plan to do the labs tomorrow. 02/25/2019-patient serum potassium is 5.0. Yesterday it was 5.3. She was given a Veltassa yesterday. Plan to repeat the labs tomorrow. 02/26/2019 serum potassium is 4.4 hyperkalemia is resolved. (5) Morbid obesity with BMI of 40.0-44.9, adult Is this a current diagnosis for this admission?: Yes (6) Hypertension Is this a current diagnosis for this admission?: No Plan: 02/24/2019-patient history of chronic hypertension presently on amlodepine 10 mg daily, lisinopril 10 mg daily, Lasix 20 mg p.o. twice daily today blood pressure is 154/46. Low-sodium diet low-carb diet was recommended. Plan to check the blood pressures every shift. 02/25/2019-patient blood pressure today is 127/50 stable. On amlodipine 10 mg daily, lisinopril 10 mg daily, Lasix 20 mg p.o. twice a day plan is to hold the lisinopril for now because of the acute on chronic kidney injury. Surprisingly patient is also on losartan 25 mg p.o. daily, plan is to continue losartan for now. to discontinue lisinopril. 02/26/2019-patient blood pressure today is 118/49. Presently on amlodipine 10 mg daily, Lasix 20 mg p.o. twice a day, losartan 25 mg p.o. daily. Plan is to continue the present management. (7) Acute respiratory failure with hypoxia Is this a current diagnosis for this admission?: Yes Plan: She does have a history of COPD and congestive heart failure. Oxygen supplementation to keep saturation between 88 and 94%. She told me she is on oxygen at home. Diuresis should also help her keep from having any trouble breathing. 02/24/2019-patient has history of COPD patient is on oxygen at home 2 L. Pulse ox is 100% on 5 L this morning. Plan to decrease the present to 3 L on check the pulse ox is again. Plan to repeat the chest x-ray. Underlying CHF may be also contributing factor for hypoxia. 02/25/2019-patient has history of COPD on home oxygen. Pulse ox is 100% on 4 L today. Plan to request the nurse to decrease the oxygen requirements to 2 L and to check the pulse ox again. On examination patient is not in distress. Acute respiratory failure with hypoxia resolving. 02/26/2019-patient has a history of COPD on home oxygen pulse ox today is 100% on 2 L. Much improved. Chest examination bilateral entry was decreased crackles are present most likely secondary to chronic interstitial changes. (8) Diabetes mellitus type 2 in obese Is this a current diagnosis for this admission?: Yes Plan: Currently on Lantus and a sliding scale. Lantus was increased today to 24 units twice daily. 02/24/2019-patient has history of type 2 diabetes mellitus. Latest blood sugar is 129. On Lantus 24 units twice a day. Plan to check hemoglobin A1c tomorrow. Dietary consult was requested. 02/25/2019-patient's latest blood sugar is 178. On Lantus 24 units subcu twice a day and insulin sliding scale before meals and at bedtime. Plan to increase the Lantus to 30 units twice a day and continue the sliding scale. Hemoglobin A1c is pending. 02/26/2019-patient latest blood sugar is 110 she is receiving 30 units of Lantus twice a day. Blood sugar dropped to 40 this morning. To hold morning dose of insulin and hemoglobin A1c came back 5.9. Plan to decrease the insulin to 20 units twice a day. (9) CHF exacerbation Qualifiers: Heart failure type: diastolic Qualified Code(s): I50.33 - Acute on chronic diastolic (congestive) heart failure Is this a current diagnosis for this admission?: No Plan: 02/24/2019-patient has history of congestive heart failure. Echocardiogram was done in January this year shows normal left ventricular ejection fraction. At the same time it showing grade 2/grade 4 mild to moderate diastolic dysfunction. Most likely patient is a chronic diastolic heart failure. Plan to repeat the chest x-ray and BNP level today. Presently on Lasix 20 mg p.o. twice daily. To check daily weights. Placed on fluid restriction 1500 mL/day. 02/25/2019-patient is on fluid restriction 1500 mL/day. Also on Lasix 20 mg p.o. twice a day chest x-ray shows mild vascular prominence. Pulse ox is 100% on 4 L. Recent echocardiogram shows normal left ventricular ejection fraction but she has chronic diastolic heart failure. On examination mild pedal edema present. Patient is going to receive Lasix 40 mg IV 1 dose after blood transfusion. 02/26/2019-patient is on fluid restriction 1500 mL/h and she is also receiving Lasix 20 mg p.o. twice a day. Chest x-ray suggestive of mild vascular prominence. Pulse ox is 100% on 2 L. Echocardiogram suggestive of chronic diastolic heart failure. Pedal edema is improving. Plan to continue Lasix 20 mg p.o. twice a day. (10) Atrial fibrillation Qualifiers: Atrial fibrillation type: paroxysmal Qualified Code(s): I48.0 - Paroxysmal atrial fibrillation Is this a current diagnosis for this admission?: Yes Plan: Good heart rate control on metoprolol. No change in regimen. 02/24/2019-patient has chronic atrial fibrillation. Not on anticoagulation. Presently heart rate is 51. Metoprolol 25 mg p.o. daily is discontinued. Plan is to continue the present management. Plan to start on Eliquis 2.5 mg p.o. tw ice daily if it is okay with the patient. 02/25/2019-patient has a chronic atrial fibrillation presently heart rate is 55 not on beta-blockers. Eliquis 2.5 mg p.o. twice a day. 02/26/2019-patient has history of chronic atrial fibrillation heart rate is 65. Rate controlled. She is on Eliquis 2.5 mg twice a day. Plan is to continue the present management. - Time Time Spent with patient: 25-34 minutes Medications reviewed and adjusted accordingly: Yes Anticipated discharge: SNF
[2019-02-26] MEDS ORDERED: INSULIN GLARGINE,HUM.REC.ANLOG 1,000 UNIT/10 ML VIAL SUBCUT SCH (10:00)
[2019-02-26] MEDS ORDERED: DIPHENHYDRAMINE HCL 25 MG CAPSULE PO PRN (10:15)
[2019-02-26] MEDS ORDERED: ACETAMINOPHEN 325 MG TABLET PO PRN (10:15)
[2019-02-26] MEDS: HEPARIN SOD (PORCINE) 5,000 UNIT/ML 1 ML SYRINGE SUBCUT SCH ×3 (10:20→22:36)
--- NOTE | 2019-02-26 10:34 | PDOC PROGRESS REPORT ---
Subjective Progress Note for:: 02/26/19 Subjective:: Patient had an episode of hypoglycemia this morning but improved now. She is awaiting rehab placement. She still has not had a bowel movement. I am giving her lactulose and hopefully to help. She continues to make an acceptable amount of urine. She notes that she has some tenderness in the left side of her breast where she has a bruise. Reason For Visit: COPD EXACERBATION,ROSA Physical Exam Vital Signs: Temp Pulse Resp BP Pulse Ox 98.3 F 65 16 118/49 L 100 02/26/19 08:00 02/26/19 08:00 02/26/19 08:00 02/26/19 08:00 02/26/19 08:00 Intake & Output 02/25/19 02/26/19 02/27/19 06:59 06:59 06:59 Intake Total 337 1821 Output Total 2200 1250 Balance -1863 571 Weight 110 kg 113.3 kg Exam: General appearance: PRESENT: no acute distress, cooperative, well-developed, well-nourished Head exam: PRESENT: atraumatic, normocephalic Eye exam: PRESENT: conjunctiva pale, PERRLA. ABSENT: scleral icterus Neck exam: ABSENT: JVD Respiratory exam: PRESENT: Diminished breath sounds. ABSENT: crackles, rales, rhonchi, unlabored, wheezes Cardiovascular exam: PRESENT: Irregular rate rhythm -+S1, +S2. ABSENT: diastolic murmur, systolic murmur GI/Abdominal exam: PRESENT: normal bowel sounds, soft. ABSENT: guarding, mass, tenderness Extremities exam: Grade 2 bilateral lower extremity pitting edema Neurological exam: PRESENT: alert, awake, oriented to person, place and time. Skin exam: PRESENT: dry, warm, positive pallor, positive contusion to the left side of the breast Cardiovascular exam: PRESENT: +S1, +S2, systolic murmur GI/Abdominal exam: PRESENT: distended, normal bowel sounds, soft. ABSENT: organomegaly, tenderness Results Laboratory Results: 02/26/19 04:30 02/26/19 04:30 02/26/19 02/26/19 04:30 04:30 WBC 5.7 RBC 2.53 L Hgb 7.8 L Hct 23.6 L MCV 93 MCH 31.0 MCHC 33.2 RDW 16.0 H Plt Count 98 L Seg Neutrophils % 59.9 Lymphocytes % 22.3 Monocytes % 10.8 Eosinophils % 6.3 H Basophils % 0.7 Absolute Neutrophils 3.4 Absolute Lymphocytes 1.3 Absolute Monocytes 0.6 Absolute Eosinophils 0.4 Absolute Basophils 0.0 Sodium 139.0 Potassium 4.4 Chloride 103 Carbon Dioxide 30 Anion Gap 6 BUN 59 H Creatinine 1.88 H Est GFR ( Amer) 32 L Est GFR (Non-Af Amer) 26 L Glucose 40 L* Calcium 8.4 Magnesium 2.0 Total Bilirubin 0.4 AST 35 ALT 34 Alkaline Phosphatase 76 Total Protein 5.6 L Albumin 2.9 L 02/14/19 02/14/19 02/22/19 14:50 14:50 13:30 Creatine Kinase 112 CK-MB (CK-2) 2.05 Troponin I < 0.012 0.016 NT-Pro-B Natriuret Pep 02/24/19 02/26/19 03:55 04:30 Creatine Kinase CK-MB (CK-2) Troponin I NT-Pro-B Natriuret Pep 4580 H 4130 H Impressions: Breast Ultrasound 02/14/19 17:51 IMPRESSION: No evidence of abscess. Thickened scan and breast tissue edema is consistent with cellulitis/mastitis. Abdomen/Pelvis CT 02/19/19 00:00 IMPRESSION: 1. Cardiomegaly with pulmonary vascular congestion and bilateral pleural effusions. 2. There is small amount of fluid in the colic gutter on the left. Divertic ulosis coli. 3. Lumbar degenerative changes. 4. Subcutaneous edema. Chest X-Ray 02/24/19 00:00 IMPRESSION: STABLE APPEARANCE. Shoulder X-Ray 02/24/19 00:00 IMPRESSION: DEGENERATIVE CHANGES. NO ACUTE FINDINGS. Assessment & Plan - Diagnosis (1) Acute renal failure superimposed on stage 3 chronic kidney disease Qualifiers: Acute renal failure type: unspecified Qualified Code(s): N17.9 - Acute kidney failure, unspecified; N18.3 - Chronic kidney disease, stage 3 (moderate) Is this a current diagnosis for this admission?: Yes Plan: Kidney function has improved from creatinine of 4.63. Currently kidney function has been stabilizing anywhere between 1.8-2.10. This can be actually due to the diuretics which she does need. We just have to monitor her closely to see where her kidney function is going to stabilize with control of her edema. She is nonoliguric and has a good diuretic response. Continue current diuretics at current dose. She does not need any urgent renal replacement therapy at this time. Continue current management. Since patient has mentioned a plan for cardiac catheterization, I discussed with the patient the effect of contrast with doing cardiac catheterization to the kidney function with possibility of worsening and requiring hemodialysis after. Patient will need to speak to her ply cutter and see if this is really necessa ry and if it does then she needs to just accept the risk. (2) Anemia of chronic renal failure, stage 3 (moderate) Is this a current diagnosis for this admission?: Yes Plan: Adequate iron stores. Her hemoglobin suddenly dropped today to 7.8. I increased her Procrit to 40,000 units subcu every week beginning today. No stool yet to check for occult blood. I think it would help her if we transfuse 1 unit of packed RBC before she goes to rehab. Continue Procrit when she gets transferred to the rehab. (3) Hypertension Is this a current diagnosis for this admission?: No Plan: Well controlled. (4) Constipation Is this a current diagnosis for this admission?: Yes Plan: Continue lactulose today. (5) CHF (congestive heart failure) Qualifiers: Heart failure type: unspecified Heart failure chronicity: acute on chronic Qualified Code(s): I50.9 - Heart failure, unspecified Is this a current diagnosis for this admission?: Yes Plan: Clinically improving. However still in hypervolemic state so we will continue diuresis. (6) Diabetes mellitus type 2 in obese Is this a current diagnosis for this admission?: Yes Plan: Needs better control. Defer to hospitalist. - Time Time with patient: 15-25 minutes
[2019-02-26] MEDS: APIXABAN 2.5 MG TABLET PO SCH ×2 (12:50→17:40)
[2019-02-26] MEDS: LACTULOSE SYRUP 20 GM/30 ML UDCUP PO SCH ×2 (12:50→22:35)
[2019-02-26] MEDS: GABAPENTIN 300 MG CAPSULE PO SCH ×2 (12:51→22:35)
[2019-02-26] MEDS: AMLODIPINE BESYLATE 10 MG TABLET PO SCH (12:51)
[2019-02-26] MEDS: ISOSORBIDE MONONITRATE 60 MG TAB.ER.24H PO SCH (12:51)
[2019-02-26] MEDS: DOCUSATE SODIUM 100 MG CAPSULE PO SCH ×2 (12:51→17:42)
[2019-02-26] MEDS: ASPIRIN 81 MG TABLET, CHEWABLE PO SCH (12:52)
[2019-02-26] MEDS: CLOPIDOGREL BISULFATE 75 MG TABLET PO SCH (12:52)
[2019-02-26] MEDS: FLUTICASONE/VILANTEROL 200-25 MCG/DOSE IH SCH (12:53)
[2019-02-26] MEDS: FENOFIBRATE NANOCRYSTALLIZED 145 MG TABLET PO SCH (12:57)
[2019-02-26] MEDS: LOSARTAN POTASSIUM 25 MG TABLET PO SCH (12:57)
[2019-02-26] MEDS: EZETIMIBE 10 MG TABLET PO SCH (12:58)
[2019-02-26] MEDS: FUROSEMIDE 20 MG TABLET PO SCH ×2 (13:00→17:40)
[2019-02-26] MEDS: INSULIN GLARGINE,HUM.REC.ANLOG 1,000 UNIT/10 ML VIAL SUBCUT SCH ×2 (13:02→22:37)
[2019-02-26] MEDS: NYSTATIN/DEXAMETH/DIPHEN SUSP 120 ML PO SCH ×3 (13:03→20:10)
[2019-02-26] MEDS: MONTELUKAST SODIUM 10 MG TABLET PO SCH (17:40)
[2019-02-26] MEDS: ATORVASTATIN CALCIUM 40 MG TABLET PO SCH (22:35)
[2019-02-26] MEDS: DIPHENHYDRAMINE HCL 25 MG CAPSULE PO SCH (22:35)
[2019-02-27] MEDS: HEPARIN SOD (PORCINE) 5,000 UNIT/ML 1 ML SYRINGE SUBCUT SCH ×3 (06:02→21:50)
[2019-02-27 06:46] LABS: ABSOLUTE EOSINOPHILS # (AUTO) 0.3 10^3/uL (0.0-0.6); ABSOLUTE LYMPHOCYTES (AUTO) 0.9 10^3/uL (0.5-4.7); ABSOLUTE MONOCYTES (AUTO) 0.5 10^3/uL (0.1-1.4); ABSOLUTE NEUT (AUTO) 3.1 10^3/uL (1.7-8.2); BASOPHILS % (AUTO) 0.8 % (0-2); EOSINOPHILS % (AUTO) 6.2 % (0-6); HEMOGLOBIN 8.3 g/dL (12.0-15.5); MEAN CORPUSCULAR HEMOGLOBIN 30.6 pg (27.0-33.4); MEAN CORPUSCULAR HGB CONC 33.4 g/dL (32.0-36.0); MEAN CORPUSCULAR VOLUME 92 fl (80-97); MONOCYTES % (AUTO) 11.1 % (3-13); RED BLOOD COUNT 2.72 10^6/uL (3.72-5.28); RED CELL DISTRIBUTION WIDTH 15.6 % (11.5-14.0); SEGMENTED NEUTROPHILS % (AUTO) 63.9 % (42-78); TOTAL CELLS COUNTED % (AUTO) 100 %; WHITE BLOOD COUNT 4.8 10^3/uL (4.0-10.5)
[2019-02-27 07:02] LABS: ALANINE AMINOTRANSFERASE 27 U/L (9-52); ALBUMIN 2.7 g/dL (3.5-5.0); ALKALINE PHOSPHATASE 76 U/L (38-126); ANION GAP 7 (5-19); ASPARTATE AMINO TRANSFERASE 31 U/L (14-36); BILIRUBIN,DIRECT 0.3 mg/dL (0.0-0.4); BILIRUBIN,TOTAL 0.4 mg/dL (0.2-1.3); BLOOD UREA NITROGEN 56 mg/dL (7-20); CALCIUM 8.3 mg/dL (8.4-10.2); CARBON DIOXIDE 27 mmol/L (22-30); CHLORIDE 104 mmol/L (98-107); GLUCOSE 100 mg/dL (75-110); POTASSIUM 4.9 mmol/L (3.6-5.0); SODIUM 137.7 mmol/L (137-145); TOTAL PROTEIN 5.2 g/dL (6.3-8.2)
[2019-02-27 07:52] LABS: PLATELET COUNT 88 10^3/uL (150-450)
[2019-02-27] MEDS: INSULIN LISPRO 100 UNIT/ML 3 ML VIAL SUBCUT SCH ×4 (08:00→21:49)
[2019-02-27] MEDS ORDERED: INSULIN GLARGINE,HUM.REC.ANLOG 1,000 UNIT/10 ML VIAL SUBCUT SCH (10:00)
--- NOTE | 2019-02-27 10:03 | PDOC PROGRESS REPORT ---
Subjective Progress Note for:: 02/27/19 Subjective:: 73 year old female with a past medical history of chronic obstructive pulmonary disease presented to the emergency department via EMS due to shortness of breath. EMS arrived patient was in respiratory distress with significant tachypnea. Oxygen level was 90%. Multiple visits to the ER and hospitalizations. The patient was treated with supplemental O2 as well as n ebulizers. While in the emergency department the patient was given Kayexalate as she was found to have a potassium of greater than 6. Patient has underlying chronic kidney disease and hyperkalemia is a chronic issue for her. According to the patient she had 2 days of excessive diarrhea. Patient stated that she was seen by her primary care provider prior to the diarrhea and her Lasix was doubled given increasing lower extremity edema. The patient states since the time the edema has improved but she is felt quite poorly. The patient was found to have a significant hyperkalemia and a cr of 4.31. Additionally the patient was complaining of left breast pain was found to have appearance of cellulitis as well as yeast under the breast. Given this collection of finding the patient has been referred to the hospitalist for admission and management. 02/24/2019 73-year-old female admitted for further acute on chronic renal insufficiency, COPD exacerbation and hyperkalemia and cellulitis of the left breast as well as a yeast infection under the left breast. Nephrology on board. Admission creatinine is more than 4 and it is improved to 1.68 and gradually going back up again to 2.1 today. Patient denies any specific complaints except for requesting to put back on her pain medications. She is also complaining of right shoulder pain requesting for x-rays. Pulse ox is 100% on 5 L. Plan is to decrease the same to 3 L and to check the pulse ox. To repeat the chest x-ray and BNP today. 02/25/[id number]-qziq-old female admitted for acute on chronic renal insufficiency creatinine was 2.08 improving, had a COPD exacerbation and hyperkalemia. Left breast cellulitis resolved and antibiotics are discontinued. Patient hemoglobin dropped to 7.4 plan to transfuse 1 unit today to give 40 mg of IV Lasix after the blood transfusion. shoulder xray done yesterday shows does not see any acute changes chest x-ray was negative for acute changes also., Patient is comfortably in the. Denies any complaints. Waiting for placement. 02/26/2019-patient's blood sugar dropped to 48 this morning. Presently on Lantus 30 units twice a day and insulin sliding scale. Hemoglobin A1c came back 5.9. I am going to decrease the Lantus to 20 units twice a day. And to continue sliding scale. Patient states she is breathing much better and swelling of the lower extremities improving. Waiting for placement. 02/27/2019-no acute events in the last 24 hours. Patient is afebrile. Complained of mild chest pain this morning she was given nitro and the pain was resolved. Patient is asymptomatic at the time of examination. Patient sitting she does not have any bowel movement for the last 3 days. To start on mag citrate today. Since that she is feeling too weak to go to the custodial today she wants to wait until tomorrow. Reason For Visit: COPD EXACERBATION,ROSA Physical Exam Vital Signs: Temp Pulse Resp BP Pulse Ox 98.6 F 62 18 150/55 H 97 02/27/19 08:00 02/27/19 08:00 02/27/19 08:00 02/27/19 08:00 02/27/19 08:00 Intake & Output 02/26/19 02/27/19 02/28/19 06:59 06:59 06:59 Intake Total 1821 1312 Output Total 1250 2200 Balance 571 -888 Weight 113.3 kg 112.4 kg General appearance: PRESENT: no acute distress Head exam: PRESENT: atraumatic Eye exam: PRESENT: PERRLA Mouth exam: PRESENT: moist, tongue midline Neck exam: ABSENT: carotid bruit, JVD, lymphadenopathy, thyromegaly Respiratory exam: PRESENT: crackles, decreased breath sounds Cardiovascular exam: PRESENT: RRR GI/Abdominal exam: PRESENT: normal bowel sounds, soft. ABSENT: distended, guarding, mass, organolmegaly, rebound, tenderness Extremities exam: PRESENT: full ROM. ABSENT: calf tenderness, clubbing, pedal edema Neurological exam: PRESENT: alert, awake, oriented to person, oriented to place, oriented to time, oriented to situation, CN II-XII grossly intact. ABSENT: motor sensory deficit Psychiatric exam: PRESENT: appropriate affect, normal mood. ABSENT: homicidal ideation, suicidal ideation Results Laboratory Results: 02/27/19 05:35 02/27/19 05:35 02/25/19 02/27/19 02/27/19 07:54 05:35 05:35 WBC 4.8 RBC 2.72 L Hgb 8.3 L Hct 25.0 L MCV 92 MCH 30.6 MCHC 33.4 RDW 15.6 H Plt Count 88 L Seg Neutrophils % 63.9 Lymphocytes % 18.0 Monocytes % 11.1 Eosinophils % 6.2 H Basophils % 0.8 Absolute Neutrophils 3.1 Absolute Lymphocytes 0.9 Absolute Monocytes 0.5 Absolute Eosinophils 0.3 Absolute Basophils 0.0 Sodium 137.7 Potassium 4.9 Chloride 104 Carbon Dioxide 27 Anion Gap 7 BUN 56 H Creatinine 1.92 H Est GFR ( Amer) 31 L Est GFR (Non-Af Amer) 26 L Glucose 100 Calcium 8.3 L Magnesium 2.1 Total Bilirubin 0.4 AST 31 ALT 27 Alkaline Phosphatase 76 Total Protein 5.2 L Albumin 2.7 L Blood Type O POSITIVE Antibody Screen POSITIVE 02/14/19 02/14/19 02/22/19 14:50 14:50 13:30 Creatine Kinase 112 CK-MB (CK-2) 2.05 Troponin I < 0.012 0.016 NT-Pro-B Natriuret Pep 02/24/19 02/26/19 02/27/19 03:55 04:30 05:35 Creatine Kinase CK-MB (CK-2) Troponin I NT-Pro-B Natriuret Pep 4580 H 4130 H 3600 H Impressions: Breast Ultrasound 02/14/19 17:51 IMPRESSION: No evidence of abscess. Thickened scan and breast tissue edema is consistent with cellulitis/mastitis. Abdomen/Pelvis CT 02/19/19 00:00 IMPRESSION: 1. Cardiomegaly with pulmonary vascular congestion and bilateral pleural effusions. 2. There is small amount of fluid in the colic gutter on the left. Diverticulosis coli. 3. Lumbar degenerative changes. 4. Subcutaneous edema. Chest X-Ray 02/24/19 00:00 IMPRESSION: STABLE APPEARANCE. Shoulder X-Ray 02/24/19 00:00 IMPRESSION: DEGENERATIVE CHANGES. NO ACUTE FINDINGS. Assessment and Plan - Diagnosis (1) Acute renal failure superimposed on stage 3 chronic kidney disease Qualifiers: Acute renal failure type: unspecified Qualified Code(s): N17.9 - Acute kidney failure, unspecified; N18.3 - Chronic kidney disease, stage 3 (moderate) Is this a current diagnosis for this admission?: Yes Plan: Resolved. Nephrology has stopped her IV fluids and started some Lasix to help remove some excess accumulated fluid. She is back on oral Lasix, monitoring her fluid intake. 02/24/[id number]-onyq-old female admitted for acute on chronic renal failure nephrology on board. Admission creatinine was 4.63 latest creatinine is 2.1. Patient is on Lasix 20 mg IV every 8 hours plan is to change the Lasix to 20 mg p.o. twice daily. To do the chest x-ray and repeat the BNP levels today. Patient is nonoliguric urinary output is 1450 yesterday with a negative balance of 1.1 L. Looks like her baseline creatinine may be around 1.6-1.8. 02/25/2019-patient admitted with a creatinine of 4.63 and latest creatinine is 2.08 acute on chronic renal failure is resolving. Baseline creatinine probably is around 1.8. Patient is presently on Lasix 20 mg p.o. twice daily. Nonoliguric. Urinary output is 1325 yesterday negative balance of 1300. Plan is to continue the p.o. Lasix. 02/26/[id number]-hxtv-old female admitted with serum creatinine 4.63 due to improved to 1.88. Most likely secondary to diuretic therapy. Nephrology on board. No need for renal replacement therapy. Presently on Lasix 20 mg p.o. twice daily. Patient's urinary output is 2.2 L yesterday. Negative balance of 1800 mL. Plan is to continue the present management. 02/27/2019-with acute on chronic renal failure. Patient has a stage III kidney disease. Creatinine today is 1.92. Stable. Baseline creatinine is around 1.8- 1.9. Presently on Lasix 20 mg p.o. twice a day. BNP is 2600. Patient has a positive fluid balance of 571 yesterday. Slight pedal edema present. Pulse ox are at baseline. Plan is to continue the present management. (2) Anemia of chronic disease Is this a current diagnosis for this admission?: Yes Plan: We will repeat CBC in the a.m. 02/24/2019 patient's hemoglobin is 8.1 stable. Patient is receiving Procrit injections as per nephrology recommendations. To repeat the labs tomorrow. 02/25/2019-patient hemoglobin dropped to 7.4. It dropped from 8.1. Plan to give 1 unit of PRBC today. Patient is receiving Procrit injections. Anemia of chronic disease most likely secondary to underlying chronic kidney disease. 02/26/2019-patient hemoglobin is 7.8 today. Patient received Procrit 40,000 units yesterday. Plan to give the medication every week. If the hemoglobin drops to less than 7.5 we will give 2 units of PRBC. 02/27/2019-patient's hemoglobin today is 8.3. She received 1 unit of PRBC yesterday. And she is also on Procrit 40,000 units every week. plan Is to continue Procrit as an outpatient at rehab facility. (3) Cellulitis of left breast Is this a current diagnosis for this admission?: Yes (4) Hyperkalemia Is this a current diagnosis for this admission?: Yes (5) Morbid obesity with BMI of 40.0-44.9, adult Is this a current diagnosis for this admission?: Yes (6) Hypertension Is this a current diagnosis for this admission?: No Plan: 02/24/2019-patient history of chronic hypertension presently on amlodepine 10 mg daily, lisinopril 10 mg daily, Lasix 20 mg p.o. twice daily today blood pressure is 154/46. Low-sodium diet low-carb diet was recommended. Plan to check the blood pressures every shift. 02/25/2019-patient blood pressure today is 127/50 stable. On amlodipine 10 mg daily, lisinopril 10 mg daily, Lasix 20 mg p.o. twice a day plan is to hold the lisinopril for now because of the acute on chronic kidney injury. Surprisingly patient is also on losartan 25 mg p.o. daily, plan is to continue losartan for now. to discontinue lisinopril. 02/26/2019-patient blood pressure today is 118/49. Presently on amlodipine 10 mg daily, Lasix 20 mg p.o. twice a day, losartan 25 mg p.o. daily. Plan is to continue the present management. 02/27/2019-patient blood pressure today is 136/50. Stable. Presently on Lasix 20 mg p.o. twice a day, losartan 25 mg p.o. daily, amlodipine 10 mg p.o. daily. Plan is to continue the present management. (7) Acute respiratory failure with hypoxia Is this a current diagnosis for this admission?: Yes Plan: She does have a history of COPD and congestive heart failure. Oxygen supple mentation to keep saturation between 88 and 94%. She told me she is on oxygen at home. Diuresis should also help her keep from having any trouble breathing. 02/24/2019-patient has history of COPD patient is on oxygen at home 2 L. Pulse ox is 100% on 5 L this morning. Plan to decrease the present to 3 L on check the pulse ox is again. Plan to repeat the chest x-ray. Underlying CHF may be also contributing factor for hypoxia. 02/25/2019-patient has history of COPD on home oxygen. Pulse ox is 100% on 4 L today. Plan to request the nurse to decrease the oxygen requirements to 2 L and to check the pulse ox again. On examination patient is not in distress. Acute respiratory failure with hypoxia resolving. 02/26/2019-patient has a history of COPD on home oxygen pulse ox today is 100% on 2 L. Much improved. Chest examination bilateral entry was decreased crackles are present most likely secondary to chronic interstitial changes. 02/27/2019-pulse ox is 97% on 2 L. Patient has a history of COPD on 2 L oxygen at home. oxygen requirements are at baseline. (8) Diabetes mellitus type 2 in obese Is this a current diagnosis for this admission?: Yes Plan: Currently on Lantus and a sliding scale. Lantus was increased today to 24 units twice daily. 02/24/2019-patient has history of type 2 diabetes mellitus. Latest blood sugar is 129. On Lantus 24 units twice a day. Plan to check hemoglobin A1c tomorrow. Dietary consult was requested. 02/25/2019-patient's latest blood sugar is 178. On Lantus 24 units subcu twice a day and insulin sliding scale before meals and at bedtime. Plan to increase the Lantus to 30 units twice a day and continue the sliding scale. Hemoglobin A1c is pending. 02/26/2019-patient latest blood sugar is 110 she is receiving 30 units of Lantus twice a day. Blood sugar dropped to 40 this morning. To hold morning dose of insulin and hemoglobin A1c came back 5.9. Plan to decrease the insulin to 20 units twice a day. 02/27/2019-patient latest blood sugar is 115. She did not receive Lantus last night. Blood sugars are stable this morning. Hemoglobin A1c is 5.9. Plan is to decrease the insulin Lantus to 15 units twice a day. Continue insulin sliding scale before meals and at bedtime. (9) CHF exacerbation Qualifiers: Heart failure type: diastolic Qualified Code(s): I50.33 - Acute on chronic diastolic (congestive) heart failure Is this a current diagnosis for this admission?: No Plan: 02/24/2019-patient has history of congestive heart failure. Echocardiogram was done in January this year shows normal left ventricular ejection fraction. At the same time it showing grade 2/grade 4 mild to moderate diastolic dysfunction. Most likely patient is a chronic diastolic heart failure. Plan to repeat the chest x-ray and BNP level today. Presently on Lasix 20 mg p.o. twice daily. To check daily weights. Placed on fluid restriction 1500 mL/day. 02/25/2019-patient is on fluid restriction 1500 mL/day. Also on Lasix 20 mg p.o. twice a day chest x-ray shows mild vascular prominence. Pulse ox is 100% on 4 L. Recent echocardiogram shows normal left ventricular ejection fraction but she has chronic diastolic heart failure. On examination mild pedal edema present. Patient is going to receive Lasix 40 mg IV 1 dose after blood transfusion. 02/26/2019-patient is on fluid restriction 1500 mL/h and she is also receiving Lasix 20 mg p.o. twice a day. Chest x-ray suggestive of mild vascular prominence. Pulse ox is 100% on 2 L. Echocardiogram suggestive of chronic diastolic heart failure. Pedal edema is improving. Plan to continue Lasix 20 mg p.o. twice a day. 02/27/2019-patient has history of a chronic diastolic heart failure. Pedal edema improving. Latest BNP is 3600. Latest x-ray did not indicate any pulmonary congestion. Plan is to continue Lasix 20 mg p.o. twice a day. (10) Atrial fibrillation Qualifiers: Atrial fibrillation type: paroxysmal Qualified Code(s): I48.0 - Paroxysmal atrial fibrillation Is this a current diagnosis for this admission?: Yes Plan: Good heart rate control on metoprolol. No change in regimen. 02/24/2019-patient has chronic atrial fibrillation. Not on anticoagulation. Presently heart rate is 51. Metoprolol 25 mg p.o. daily is discontinued. Plan is to continue the present management. Plan to start on Eliquis 2.5 mg p.o. twice daily if it is okay with the patient. 02/25/2019-patient has a chronic atrial fibrillation presently heart rate is 55 not on beta-blockers. Eliquis 2.5 mg p.o. twice a day. 02/26/2019-patient has history of chronic atrial fibrillation heart rate is 65. Rate controlled. She is on Eliquis 2.5 mg twice a day. Plan is to continue the present management. 02/27/2019-patient's heart rate today is 56. Rate controlled. On Eliquis 2.5 mg p.o. daily plan is to continue the present management. - Time Time Spent with patient: 15-24 minutes Medications reviewed and adjusted accordingly: Yes Anticipated discharge: [facility]
[2019-02-27] MEDS: CLOPIDOGREL BISULFATE 75 MG TABLET PO SCH (11:27)
[2019-02-27] MEDS: FUROSEMIDE 20 MG TABLET PO SCH ×2 (11:27→18:58)
[2019-02-27] MEDS: GABAPENTIN 300 MG CAPSULE PO SCH ×2 (11:27→21:48)
[2019-02-27] MEDS: ASPIRIN 81 MG TABLET, CHEWABLE PO SCH (11:28)
[2019-02-27] MEDS: APIXABAN 2.5 MG TABLET PO SCH ×2 (11:28→18:58)
[2019-02-27] MEDS: ISOSORBIDE MONONITRATE 60 MG TAB.ER.24H PO SCH (11:28)
[2019-02-27] MEDS: AMLODIPINE BESYLATE 10 MG TABLET PO SCH (11:28)
[2019-02-27] MEDS: LACTULOSE SYRUP 20 GM/30 ML UDCUP PO SCH ×2 (11:29→21:49)
[2019-02-27] MEDS: NYSTATIN/DEXAMETH/DIPHEN SUSP 120 ML PO SCH ×3 (11:34→18:58)
[2019-02-27] MEDS: LOSARTAN POTASSIUM 25 MG TABLET PO SCH (11:34)
[2019-02-27] MEDS: DOCUSATE SODIUM 100 MG CAPSULE PO SCH ×2 (11:37→18:58)
[2019-02-27] MEDS: FLUTICASONE/VILANTEROL 200-25 MCG/DOSE IH SCH (11:37)
[2019-02-27] MEDS: OXYCODONE-ACETAMINOPHEN 5-325 MG TABLET PO PRN ×2 (14:20→21:48)
[2019-02-27] MEDS: MAGNESIUM CITRATE 296 ML BOTTLE PO SCH (14:34)
[2019-02-27] MEDS: EZETIMIBE 10 MG TABLET PO SCH (14:34)
[2019-02-27] MEDS: FENOFIBRATE NANOCRYSTALLIZED 145 MG TABLET PO SCH (14:34)
[2019-02-27] MEDS: MONTELUKAST SODIUM 10 MG TABLET PO SCH (18:58)
[2019-02-27] MEDS: DIPHENHYDRAMINE HCL 25 MG CAPSULE PO SCH (21:46)
[2019-02-27] MEDS: ATORVASTATIN CALCIUM 40 MG TABLET PO SCH (21:48)
[2019-02-27] MEDS: ONDANSETRON 4 MG TAB.RAPDIS PO PRN (23:57)
[2019-02-28 04:28] LABS: ABSOLUTE EOSINOPHILS # (AUTO) 0.3 10^3/uL (0.0-0.6); ABSOLUTE LYMPHOCYTES (AUTO) 0.9 10^3/uL (0.5-4.7); ABSOLUTE MONOCYTES (AUTO) 0.5 10^3/uL (0.1-1.4); ABSOLUTE NEUT (AUTO) 3.1 10^3/uL (1.7-8.2); BASOPHILS % (AUTO) 0.9 % (0-2); EOSINOPHILS % (AUTO) 6.5 % (0-6); HEMATOCRIT 24.1 % (36.0-47.0); HEMOGLOBIN 8.2 g/dL (12.0-15.5); LYMPHOCYTES % (AUTO) 18.9 % (13-45); MEAN CORPUSCULAR HEMOGLOBIN 30.9 pg (27.0-33.4); MEAN CORPUSCULAR HGB CONC 33.9 g/dL (32.0-36.0); MEAN CORPUSCULAR VOLUME 91 fl (80-97); MONOCYTES % (AUTO) 10.4 % (3-13); RED BLOOD COUNT 2.64 10^6/uL (3.72-5.28); SEGMENTED NEUTROPHILS % (AUTO) 63.3 % (42-78); TOTAL CELLS COUNTED % (AUTO) 100 %; WHITE BLOOD COUNT 4.8 10^3/uL (4.0-10.5)
[2019-02-28 04:39] LABS: ALANINE AMINOTRANSFERASE 32 U/L (9-52); ALBUMIN 2.8 g/dL (3.5-5.0); ALKALINE PHOSPHATASE 82 U/L (38-126); ANION GAP 5 (5-19); ASPARTATE AMINO TRANSFERASE 31 U/L (14-36); BILIRUBIN,DIRECT 0.4 mg/dL (0.0-0.4); BILIRUBIN,TOTAL 0.4 mg/dL (0.2-1.3); BLOOD UREA NITROGEN 52 mg/dL (7-20); CALCIUM 8.3 mg/dL (8.4-10.2); CARBON DIOXIDE 31 mmol/L (22-30); CHLORIDE 101 mmol/L (98-107); GLUCOSE 169 mg/dL (75-110); POTASSIUM 5.3 mmol/L (3.6-5.0); SODIUM 137.4 mmol/L (137-145); TOTAL PROTEIN 5.3 g/dL (6.3-8.2)
[2019-02-28 04:54] LABS: PLATELET COUNT 94 10^3/uL (150-450)
[2019-02-28] MEDS: HEPARIN SOD (PORCINE) 5,000 UNIT/ML 1 ML SYRINGE SUBCUT SCH ×3 (05:40→21:57)
[2019-02-28] MEDS: INSULIN LISPRO 100 UNIT/ML 3 ML VIAL SUBCUT SCH ×4 (08:49→22:15)
--- NOTE | 2019-02-28 09:13 | PDOC PROGRESS REPORT ---
Subjective Progress Note for:: 02/28/19 Subjective:: 73 year old female with a past medical history of chronic obstructive pulmonary disease presented to the emergency department via EMS due to shortness of breath. EMS arrived patient was in respiratory distress with significant tachypnea. Oxygen level was 90%. Multiple visits to the ER and hospitalizations. The patient was treated with supplemental O2 as well as n ebulizers. While in the emergency department the patient was given Kayexalate as she was found to have a potassium of greater than 6. Patient has underlying chronic kidney disease and hyperkalemia is a chronic issue for her. According to the patient she had 2 days of excessive diarrhea. Patient stated that she was seen by her primary care provider prior to the diarrhea and her Lasix was doubled given increasing lower extremity edema. The patient states since the time the edema has improved but she is felt quite poorly. The patient was found to have a significant hyperkalemia and a cr of 4.31. Additionally the patient was complaining of left breast pain was found to have appearance of cellulitis as well as yeast under the breast. Given this collection of finding the patient has been referred to the hospitalist for admission and management. 02/24/2019 73-year-old female admitted for further acute on chronic renal insufficiency, COPD exacerbation and hyperkalemia and cellulitis of the left breast as well as a yeast infection under the left breast. Nephrology on board. Admission creatinine is more than 4 and it is improved to 1.68 and gradually going back up again to 2.1 today. Patient denies any specific complaints except for requesting to put back on her pain medications. She is also complaining of right shoulder pain requesting for x-rays. Pulse ox is 100% on 5 L. Plan is to decrease the same to 3 L and to check the pulse ox. To repeat the chest x-ray and BNP today. 02/25/[id number]-dvfb-old female admitted for acute on chronic renal insufficiency creatinine was 2.08 improving, had a COPD exacerbation and hyperkalemia. Left breast cellulitis resolved and antibiotics are discontinued. Patient hemoglobin dropped to 7.4 plan to transfuse 1 unit today to give 40 mg of IV Lasix after the blood transfusion. shoulder xray done yesterday shows does not see any acute changes chest x-ray was negative for acute changes also., Patient is comfortably in the. Denies any complaints. Waiting for placement. 02/26/2019-patient's blood sugar dropped to 48 this morning. Presently on Lantus 30 units twice a day and insulin sliding scale. Hemoglobin A1c came back 5.9. I am going to decrease the Lantus to 20 units twice a day. And to continue sliding scale. Patient states she is breathing much better and swelling of the lower extremities improving. Waiting for placement. 02/27/2019-no acute events in the last 24 hours. Patient is afebrile. Complained of mild chest pain this morning she was given nitro and the pain was resolved. Patient is asymptomatic at the time of examination. Patient sitting she does not have any bowel movement for the last 3 days. To start on mag citrate today. Since that she is feeling too weak to go to the [place] [facility] today she wants to wait until tomorrow. 02/28/2019-no acute events in the last 24 hours. Patient is afebrile. We started the patient on mag citrate yesterday still does not have any bowel movement. May be patient had fecal impaction. Give Dulcolax as needed for rectal, to continue mag citrate request is a nurse to try to do the fecal deimpaction. Patient is comfortable in the bed except for the constipation denies any complaints. Reason For Visit: COPD EXACERBATION,ROSA Physical Exam Vital Signs: Temp Pulse Resp BP Pulse Ox 98.5 F 66 19 150/55 H 100 02/28/19 08:00 02/28/19 08:00 02/28/19 08:00 02/28/19 08:00 02/28/19 08:00 Intake & Output 02/27/19 02/28/19 03/01/19 06:59 06:59 06:59 Intake Total 1312 1320 Output Total 2200 2350 Balance -888 -1030 Weight 112.4 kg 111.5 kg General appearance: PRESENT: no acute distress, obese Head exam: PRESENT: atraumatic Eye exam: PRESENT: PERRLA Neck exam: ABSENT: carotid bruit, JVD, lymphadenopathy, thyromegaly Respiratory exam: PRESENT: decreased breath sounds Cardiovascular exam: PRESENT: irregular rhythm, systolic murmur GI/Abdominal exam: PRESENT: normal bowel sounds, soft. ABSENT: distended, guard ing, mass, organolmegaly, rebound, tenderness Gentrourinary exam: PRESENT: indwelling catheter Extremities exam: PRESENT: full ROM. ABSENT: calf tenderness, clubbing, pedal edema Neurological exam: PRESENT: alert, awake, oriented to person, oriented to place, oriented to time, oriented to situation, CN II-XII grossly intact. ABSENT: motor sensory deficit Psychiatric exam: PRESENT: appropriate affect, normal mood. ABSENT: homicidal ideation, suicidal ideation Results Laboratory Results: 02/28/19 03:35 02/28/19 03:35 02/28/19 02/28/19 03:35 03:35 WBC 4.8 RBC 2.64 L Hgb 8.2 L Hct 24.1 L MCV 91 MCH 30.9 MCHC 33.9 RDW 16.0 H Plt Count 94 L Seg Neutrophils % 63.3 Lymphocytes % 18.9 Monocytes % 10.4 Eosinophils % 6.5 H Basophils % 0.9 Absolute Neutrophils 3.1 Absolute Lymphocytes 0.9 Absolute Monocytes 0.5 Absolute Eosinophils 0.3 Absolute Basophils 0.0 Sodium 137.4 Potassium 5.3 H Chloride 101 Carbon Dioxide 31 H Anion Gap 5 BUN 52 H Creatinine 1.93 H Est GFR ( Amer) 31 L Est GFR (Non-Af Amer) 26 L Glucose 169 H Calcium 8.3 L Magnesium 2.2 Total Bilirubin 0.4 AST 31 ALT 32 Alkaline Phosphatase 82 Total Protein 5.3 L Albumin 2.8 L 02/14/19 02/14/19 02/22/19 14:50 14:50 13:30 Creatine Kinase 112 CK-MB (CK-2) 2.05 Troponin I < 0.012 0.016 NT-Pro-B Natriuret Pep 02/24/19 02/26/19 02/27/19 03:55 04:30 05:35 Creatine Kinase CK-MB (CK-2) Troponin I NT-Pro-B Natriuret Pep 4580 H 4130 H 3600 H 02/28/19 03:35 Creatine Kinase CK-MB (CK-2) Troponin I NT-Pro-B Natriuret Pep 3450 H Impressions: Breast Ultrasound 02/14/19 17:51 IMPRESSION: No evidence of abscess. Thickened scan and breast tissue edema is consistent with cellulitis/mastitis. Abdomen/Pelvis CT 02/19/19 00:00 IMPRESSION: 1. Cardiomegaly with pulmonary vascular congestion and bilateral pleural effusions. 2. There is small amount of fluid in the colic gutter on the left. Diverticulosis coli. 3. Lumbar degenerative changes. 4. Subcutaneous edema. Chest X-Ray 02/24/19 00:00 IMPRESSION: STABLE APPEARANCE. Shoulder X-Ray 02/24/19 00:00 IMPRESSION: DEGENERATIVE CHANGES. NO ACUTE FINDINGS. Assessment and Plan - Diagnosis (1) Acute renal failure superimposed on stage 3 chronic kidney disease Qualifiers: Acute renal failure type: unspecified Qualified Code(s): N17.9 - Acute kidney failure, unspecified; N18.3 - Chronic kidney disease, stage 3 (moderate) Is this a current diagnosis for this admission?: Yes Plan: Resolved. Nephrology has stopped her IV fluids and started some Lasix to help remove some excess accumulated fluid. She is back on oral Lasix, monitoring her fluid intake. 02/24/[id number]-kqkf-old female admitted for acute on chronic renal failure nephrology on board. Admission creatinine was 4.63 latest creatinine is 2.1. Patient is on Lasix 20 mg IV every 8 hours plan is to change the Lasix to 20 mg p.o. twice daily. To do the chest x-ray and repeat the BNP levels today. Patient is nonoliguric urinary output is 1450 yesterday with a negative balance of 1.1 L. Looks like her baseline creatinine may be around 1.6-1.8. 02/25/2019-patient admitted with a creatinine of 4.63 and latest creatinine is 2.08 acute on chronic renal failure is resolving. Baseline creatinine probably is around 1.8. Patient is presently on Lasix 20 mg p.o. twice daily. Nonoliguric. Urinary output is 1325 yesterday negative balance of 1300. Plan is to continue the p.o. Lasix. 02/26/[id number]-ablx-old female admitted with serum creatinine 4.63 due to improved to 1.88. Most likely secondary to diuretic therapy. Nephrology on board. No need for renal replacement therapy. Presently on Lasix 20 mg p.o. twice daily. Patient's urinary output is 2.2 L yesterday. Negative balance of 1800 mL. Plan is to continue the present management. 02/27/2019-with acute on chronic renal failure. Patient has a stage III kidney disease. Creatinine today is 1.92. Stable. Baseline creatinine is around 1.8- 1.9. Presently on Lasix 20 mg p.o. twice a day. BNP is 2600. Patient has a po sitive fluid balance of 571 yesterday. Slight pedal edema present. Pulse ox are at baseline. Plan is to continue the present management. 02/28/2019-patient was admitted with acute on chronic renal failure. Patient creatinine today is 1.93 stable. Looks like a baseline creatinine is around 1.8-1.9. Recently on Lasix 20 mg p.o. twice a day. Nonoliguric. No pedal edema on examination. Plan is to continue the present management. (2) Anemia of chronic disease Is this a current diagnosis for this admission?: Yes Plan: We will repeat CBC in the a.m. 02/24/2019 patient's hemoglobin is 8.1 stable. Patient is receiving Procrit injections as per nephrology recommendations. To repeat the labs tomorrow. 02/25/2019-patient hemoglobin dropped to 7.4. It dropped from 8.1. Plan to give 1 unit of PRBC today. Patient is receiving Procrit injections. Anemia of chronic disease most likely secondary to underlying chronic kidney disease. 02/26/2019-patient hemoglobin is 7.8 today. Patient received Procrit 40,000 units yesterday. Plan to give the medication every week. If the hemoglobin drops to less than 7.5 we will give 2 units of PRBC. 02/27/2019-patient's hemoglobin today is 8.3. She received 1 unit of PRBC yest erday. And she is also on Procrit 40,000 units every week. plan Is to continue Procrit as an outpatient at rehab facility. 02/28/2019-patient's hemoglobin is 8.2. She received 1 unit PRBC 2 days ago. She is also on Procrit 40,000 units q. weekly. Plan is to continue Procrit at a rehab facility. Anemia of chronic disease most likely secondary to CKD. (3) Cellulitis of left breast Is this a current diagnosis for this admission?: Yes (4) Hyperkalemia Is this a current diagnosis for this admission?: Yes Plan: Resolved, patiromer stopped 02/24/2019-serum potassium level today is 5.3. Try to give Kayexalate unfortunately in the back order. To give a Veltassa 24.6 g today. plan to do the labs tomorrow. 02/25/2019-patient serum potassium is 5.0. Yesterday it was 5.3. She was given a Veltassa yesterday. Plan to repeat the labs tomorrow. 02/26/2019 serum potassium is 4.4 hyperkalemia is resolved. 02/28/2019-patient serum potassium is 5.3 today. Patient is presently on mag citrate, to give Dulcolax suppository for a fecal impaction hyperkalemia may be secondary to constipation/fecal impaction. To repeat the labs tomorrow. (5) Morbid obesity with BMI of 40.0-44.9, adult Is this a current diagnosis for this admission?: Yes Plan: Significant risk for comorbidities. I believe this is adding obesity hypoventilation to her already significant list of comorbidities. She thought that there was something wrong with her abdomen CT scan today showed nothing like a mass or hernia, so this is just her body habitus. 02/24/2019-patient's BMI is more than 40 may be causing obesity hypoventilation syndrome. Diet exercise lifestyle modifications are discussed with the patient. Dietary consult is going to be requested. (6) Hypertension Is this a current diagnosis for this admission?: No Plan: 02/24/2019-patient history of chronic hypertension presently on amlodepine 10 mg daily, lisinopril 10 mg daily, Lasix 20 mg p.o. twice daily today blood pressure is 154/46. Low-sodium diet low-carb diet was recommended. Plan to check the blood pressures every shift. 02/25/2019-patient blood pressure today is 127/50 stable. On amlodipine 10 mg daily, lisinopril 10 mg daily, Lasix 20 mg p.o. twice a day plan is to hold the lisinopril for now because of the acute on chronic kidney injury. Surprisingly patient is also on losartan 25 mg p.o. daily, plan is to continue losartan for now. to discontinue lisinopril. 02/26/2019-patient blood pressure today is 118/49. Presently on amlodipine 10 mg daily, Lasix 20 mg p.o. twice a day, losartan 25 mg p.o. daily. Plan is to continue the present management. 02/27/2019-patient blood pressure today is 136/50. Stable. Presently on Lasix 20 mg p.o. twice a day, losartan 25 mg p.o. daily, amlodipine 10 mg p.o. daily. Plan is to continue the present management. 02/28/2019-patient blood pressure today is 117/65. Presently on p.o. Lasix 20 mg twice a day, losartan 25 mg p.o. daily, amlodipine 10 mg p.o. daily. Plan is to continue the present management. (7) Acute respiratory failure with hypoxia Is this a current diagnosis for this admission?: Yes Plan: She does have a history of COPD and congestive heart failure. Oxygen supplementation to keep saturation between 88 and 94%. She told me she is on oxygen at home. Diuresis should also help her keep from having any trouble breathing. 02/24/2019-patient has history of COPD patient is on oxygen at home 2 L. Pulse ox is 100% on 5 L this morning. Plan to decrease the present to 3 L on check the pulse ox is again. Plan to repeat the chest x-ray. Underlying CHF may be also contributing factor for hypoxia. 02/25/2019-patient has history of COPD on home oxygen. Pulse ox is 100% on 4 L today. Plan to request the nurse to decrease the oxygen requirements to 2 L and to check the pulse ox again. On examination patient is not in distress. Acute respiratory failure with hypoxia resolving. 02/26/2019-patient has a history of COPD on home oxygen pulse ox today is 100% on 2 L. Much improved. Chest examination bilateral entry was decreased crackles are present most likely secondary to chronic interstitial changes. 02/27/2019-pulse ox is 97% on 2 L. Patient has a history of COPD on 2 L oxygen at home. oxygen requirements are at baseline. 02/28/2019-patient pulse ox is 98% on 2 L. Oxygen requirements are at baseline. On examination chest bilateral entry is decreased no wheezing no crepitations. (8) Diabetes mellitus type 2 in obese Is this a current diagnosis for this admission?: Yes Plan: Currently on Lantus and a sliding scale. Lantus was increased today to 24 units twice daily. 02/24/2019-patient has history of type 2 diabetes mellitus. Latest blood sugar is 129. On Lantus 24 units twice a day. Plan to check hemoglobin A1c tomorrow. Dietary consult was requested. 02/25/2019-patient's latest blood sugar is 178. On Lantus 24 units subcu twice a day and insulin sliding scale before meals and at bedtime. Plan to increase the Lantus to 30 units twice a day and continue the sliding scale. Hemoglobin A1c is pending. 02/26/2019-patient latest blood sugar is 110 she is receiving 30 units of Lantus twice a day. Blood sugar dropped to 40 this morning. To hold morning dose of insulin and hemoglobin A1c came back 5.9. Plan to decrease the insulin to 20 units twice a day. 02/27/2019-patient latest blood sugar is 115. She did not receive Lantus last night. Blood sugars are stable this morning. Hemoglobin A1c is 5.9. Plan is to decrease the insulin Lantus to 15 units twice a day. Continue insulin sliding scale before meals and at bedtime. 02/28/2019-patient blood sugar is 185. She did not receive any Lantus last ni ght. Hemoglobin A1c is 5.9. Plan is to decrease the Lantus to 10 units twice a day and continue sling sliding scale before meals and at bedtime. (9) CHF exacerbation Qualifiers: Heart failure type: diastolic Qualified Code(s): I50.33 - Acute on chronic diastolic (congestive) heart failure Is this a current diagnosis for this admission?: No Plan: 02/24/2019-patient has history of congestive heart failure. Echocardiogram was done in January this year shows normal left ventricular ejection fraction. At the same time it showing grade 2/grade 4 mild to moderate diastolic dysfunction. Most likely patient is a chronic diastolic heart failure. Plan to repeat the chest x-ray and BNP level today. Presently on Lasix 20 mg p.o. twice daily. To check daily weights. Placed on fluid restriction 1500 mL/day. 02/25/2019-patient is on fluid restriction 1500 mL/day. Also on Lasix 20 mg p.o. twice a day chest x-ray shows mild vascular prominence. Pulse ox is 100% on 4 L . Recent echocardiogram shows normal left ventricular ejection fraction but she has chronic diastolic heart failure. On examination mild pedal edema present. Patient is going to receive Lasix 40 mg IV 1 dose after blood transfusion. 02/26/2019-patient is on fluid restriction 1500 mL/h and she is also receiving Lasix 20 mg p.o. twice a day. Chest x-ray suggestive of mild vascular prominence. Pulse ox is 100% on 2 L. Echocardiogram suggestive of chronic diastolic heart failure. Pedal edema is improving. Plan to continue Lasix 20 mg p.o. twice a day. 02/27/2019-patient has history of a chronic diastolic heart failure. Pedal edema improving. Latest BNP is 3600. Latest x-ray did not indicate any pulmonary congestion. Plan is to continue Lasix 20 mg p.o. twice a day. 02/28/2019-patient has history of chronic diastolic heart failure. Latest BNP around 3450. Chest x-ray shows mild congestion. No pedal edema. No signs of any fluid overload. Present on Lasix 20 mg p.o. twice a day. Plan is to continue the present management. (10) Atrial fibrillation Qualifiers: Atrial fibrillation type: paroxysmal Qualified Code(s): I48.0 - Paroxysmal atrial fibrillation Is this a current diagnosis for this admission?: Yes Plan: Good heart rate control on metoprolol. No change in regimen. 02/24/2019-patient has chronic atrial fibrillation. Not on anticoagulation. Presently heart rate is 51. Metoprolol 25 mg p.o. daily is discontinued. Plan is to continue the present management. Plan to start on Eliquis 2.5 mg p.o. twice daily if it is okay with the patient. 02/25/2019-patient has a chronic atrial fibrillation presently heart rate is 55 not on beta-blockers. Eliquis 2.5 mg p.o. twice a day. 02/26/2019-patient has history of chronic atrial fibrillation heart rate is 65. Rate controlled. She is on Eliquis 2.5 mg twice a day. Plan is to continue the present management. 02/27/2019-patient's heart rate today is 56. Rate controlled. On Eliquis 2.5 mg p.o. daily plan is to continue the present management. 02/28/2019-patient heart rate is 66. Patient has a history of a defibrillator controlled. Presenting Eliquis 2.5 mg p.o. twice daily. Plan is to continue the present management. - Time Time Spent with patient: 25-34 minutes Medications reviewed and adjusted accordingly: Yes Anticipated discharge: [facility]
[2019-02-28] MEDS ORDERED: BISACODYL 10 MG SUPP.RECT PR ONE ×2 (10:00→15:00)
[2019-02-28] MEDS: DOCUSATE SODIUM 100 MG CAPSULE PO SCH ×2 (11:02→18:35)
[2019-02-28] MEDS: LOSARTAN POTASSIUM 25 MG TABLET PO SCH (11:02)
[2019-02-28] MEDS: ASPIRIN 81 MG TABLET, CHEWABLE PO SCH (11:02)
[2019-02-28] MEDS: CLOPIDOGREL BISULFATE 75 MG TABLET PO SCH (11:03)
[2019-02-28] MEDS: GABAPENTIN 300 MG CAPSULE PO SCH ×2 (11:03→22:16)
[2019-02-28] MEDS: FUROSEMIDE 20 MG TABLET PO SCH ×2 (11:03→18:35)
[2019-02-28] MEDS: ISOSORBIDE MONONITRATE 60 MG TAB.ER.24H PO SCH (11:03)
[2019-02-28] MEDS: AMLODIPINE BESYLATE 10 MG TABLET PO SCH (11:04)
[2019-02-28] MEDS: NYSTATIN/DEXAMETH/DIPHEN SUSP 120 ML PO SCH ×3 (11:04→18:36)
[2019-02-28] MEDS: FENOFIBRATE NANOCRYSTALLIZED 145 MG TABLET PO SCH (11:04)
[2019-02-28] MEDS: EZETIMIBE 10 MG TABLET PO SCH (11:04)
[2019-02-28] MEDS: FLUTICASONE/VILANTEROL 200-25 MCG/DOSE IH SCH (11:05)
[2019-02-28] MEDS: LACTULOSE SYRUP 20 GM/30 ML UDCUP PO SCH ×2 (11:05→21:57)
[2019-02-28] MEDS: INSULIN GLARGINE,HUM.REC.ANLOG 1,000 UNIT/10 ML VIAL SUBCUT SCH ×2 (11:06→22:16)
[2019-02-28] MEDS: MAGNESIUM CITRATE 296 ML BOTTLE PO SCH (11:16)
[2019-02-28] MEDS: OXYCODONE-ACETAMINOPHEN 5-325 MG TABLET PO PRN ×2 (14:37→22:16)
[2019-02-28] MEDS: ONDANSETRON HCL INJ/PF 4 MG/2 ML SDV IV PRN (17:50)
[2019-02-28] MEDS: MONTELUKAST SODIUM 10 MG TABLET PO SCH (18:35)
[2019-02-28] MEDS ORDERED: LACTULOSE SYRUP 20 GM/30 ML UDCUP PO SCH (22:00)
[2019-02-28] MEDS: DIPHENHYDRAMINE HCL 25 MG CAPSULE PO SCH (22:16)
[2019-02-28] MEDS: ATORVASTATIN CALCIUM 40 MG TABLET PO SCH (22:16)
[2019-03-01] MEDS: HEPARIN SOD (PORCINE) 5,000 UNIT/ML 1 ML SYRINGE SUBCUT SCH ×3 (05:04→21:51)
[2019-03-01] MEDS: INSULIN LISPRO 100 UNIT/ML 3 ML VIAL SUBCUT SCH ×4 (07:57→22:00)
[2019-03-01 08:51] LABS: ABSOLUTE BASOPHILS # (AUTO) 0.1 10^3/uL (0.0-0.2); ABSOLUTE EOSINOPHILS # (AUTO) 0.3 10^3/uL (0.0-0.6); ABSOLUTE MONOCYTES (AUTO) 0.5 10^3/uL (0.1-1.4); BASOPHILS % (AUTO) 0.9 % (0-2); EOSINOPHILS % (AUTO) 5.8 % (0-6); HEMATOCRIT 25.3 % (36.0-47.0); HEMOGLOBIN 8.7 g/dL (12.0-15.5); LYMPHOCYTES % (AUTO) 16.7 % (13-45); MEAN CORPUSCULAR HEMOGLOBIN 31.6 pg (27.0-33.4); MEAN CORPUSCULAR HGB CONC 34.3 g/dL (32.0-36.0); MEAN CORPUSCULAR VOLUME 92 fl (80-97); MONOCYTES % (AUTO) 9.3 % (3-13); PLATELET COUNT 101 10^3/uL (150-450); RED BLOOD COUNT 2.74 10^6/uL (3.72-5.28); RED CELL DISTRIBUTION WIDTH 15.8 % (11.5-14.0); SEGMENTED NEUTROPHILS % (AUTO) 67.3 % (42-78); TOTAL CELLS COUNTED % (AUTO) 100 %; WHITE BLOOD COUNT 5.9 10^3/uL (4.0-10.5)
[2019-03-01] MEDS: LEVALBUTEROL HCL NEB 1.25 MG/3 ML AMPUL NEB PRN (09:05)
[2019-03-01 09:08] LABS: ALANINE AMINOTRANSFERASE 27 U/L (9-52); ALKALINE PHOSPHATASE 88 U/L (38-126); ANION GAP 6 (5-19); ASPARTATE AMINO TRANSFERASE 30 U/L (14-36); BILIRUBIN,DIRECT 0.3 mg/dL (0.0-0.4); BILIRUBIN,TOTAL 0.5 mg/dL (0.2-1.3); BLOOD UREA NITROGEN 48 mg/dL (7-20); CALCIUM 8.6 mg/dL (8.4-10.2); CARBON DIOXIDE 29 mmol/L (22-30); CHLORIDE 100 mmol/L (98-107); GLUCOSE 180 mg/dL (75-110); SODIUM 135.3 mmol/L (137-145); TOTAL PROTEIN 5.7 g/dL (6.3-8.2)
[2019-03-01] MEDS: FUROSEMIDE 20 MG TABLET PO SCH ×2 (09:53→17:56)
[2019-03-01] MEDS: AMLODIPINE BESYLATE 10 MG TABLET PO SCH (09:53)
[2019-03-01] MEDS: ISOSORBIDE MONONITRATE 60 MG TAB.ER.24H PO SCH (09:53)
[2019-03-01] MEDS: CLOPIDOGREL BISULFATE 75 MG TABLET PO SCH (09:53)
[2019-03-01] MEDS: ASPIRIN 81 MG TABLET, CHEWABLE PO SCH (09:53)
--- NOTE | 2019-03-01 09:53 | PDOC PROGRESS REPORT ---
Subjective Progress Note for:: 03/01/19 Subjective:: 73 year old female with a past medical history of chronic obstructive pulmonary disease presented to the emergency department via EMS due to shortness of breath. EMS arrived patient was in respiratory distress with significant tachypnea. Oxygen level was 90%. Multiple visits to the ER and hospitalizations. The patient was treated with supplemental O2 as well as n ebulizers. While in the emergency department the patient was given Kayexalate as she was found to have a potassium of greater than 6. Patient has underlying chronic kidney disease and hyperkalemia is a chronic issue for her. According to the patient she had 2 days of excessive diarrhea. Patient stated that she was seen by her primary care provider prior to the diarrhea and her Lasix was doubled given increasing lower extremity edema. The patient states since the time the edema has improved but she is felt quite poorly. The patient was found to have a significant hyperkalemia and a cr of 4.31. Additionally the patient was complaining of left breast pain was found to have appearance of cellulitis as well as yeast under the breast. Given this collection of finding the patient has been referred to the hospitalist for admission and management. 02/24/2019 73-year-old female admitted for further acute on chronic renal insufficiency, COPD exacerbation and hyperkalemia and cellulitis of the left breast as well as a yeast infection under the left breast. Nephrology on board. Admission creatinine is more than 4 and it is improved to 1.68 and gradually going back up again to 2.1 today. Patient denies any specific complaints except for requesting to put back on her pain medications. She is also complaining of right shoulder pain requesting for x-rays. Pulse ox is 100% on 5 L. Plan is to decrease the same to 3 L and to check the pulse ox. To repeat the chest x-ray and BNP today. 02/25/[id number]-clrl-old female admitted for acute on chronic renal insufficiency creatinine was 2.08 improving, had a COPD exacerbation and hyperkalemia. Left breast cellulitis resolved and antibiotics are discontinued. Patient hemoglobin dropped to 7.4 plan to transfuse 1 unit today to give 40 mg of IV Lasix after the blood transfusion. shoulder xray done yesterday shows does not see any acute changes chest x-ray was negative for acute changes also., Patient is comfortably in the. Denies any complaints. Waiting for placement. 02/26/2019-patient's blood sugar dropped to 48 this morning. Presently on Lantus 30 units twice a day and insulin sliding scale. Hemoglobin A1c came back 5.9. I am going to decrease the Lantus to 20 units twice a day. And to continue sliding scale. Patient states she is breathing much better and swelling of the lower extremities improving. Waiting for placement. 02/27/2019-no acute events in the last 24 hours. Patient is afebrile. Complained of mild chest pain this morning she was given nitro and the pain was resolved. Patient is asymptomatic at the time of examination. Patient sitting she does not have any bowel movement for the last 3 days. To start on mag citrate today. Since that she is feeling too weak to go to the halfway today she wants to wait until tomorrow. 02/28/2019-no acute events in the last 24 hours. Patient is afebrile. We started the patient on mag citrate yesterday still does not have any bowel movement. May be patient had fecal impaction. Give Dulcolax as needed for rectal, to continue mag citrate request is a nurse to try to do the fecal deimpaction. Patient is comfortable in the bed except for the constipation denies any complaints. 03/01/2019-no acute events in the last 24 hours. Patient is afebrile. Patient is complaining of diastolic questioning for eyedrops. She is also complaining of left-sided abdominal pain requesting for x-rays. Patient has fecal impaction partial impaction of fecal material was done yesterday. Patient states she is feeling much better. Reason For Visit: COPD EXACERBATION,ROSA Physical Exam Vital Signs: Temp Pulse Resp BP Pulse Ox 98.5 F 76 18 151/54 H 96 03/01/19 07:58 03/01/19 07:58 03/01/19 07:58 03/01/19 07:58 03/01/19 07:58 Intake & Output 02/28/19 03/01/19 03/02/19 06:59 06:59 06:59 Intake Total 1320 570 Output Total 2350 850 Balance -1030 -280 Weight 111.5 kg 102.1 kg General appearance: PRESENT: no acute distress, obese Head exam: PRESENT: atraumatic Eye exam: PRESENT: PERRLA Mouth exam: PRESENT: moist, tongue midline Neck exam: ABSENT: carotid bruit, JVD, lymphadenopathy, thyromegaly Respiratory exam: PRESENT: decreased breath sounds Cardiovascular exam: PRESENT: irregular rhythm GI/Abdominal exam: PRESENT: normal bowel sounds, soft. ABSENT: distended, guarding, mass, organolmegaly, rebound, tenderness Gentrourinary exam: PRESENT: indwelling catheter Extremities exam: PRESENT: full ROM. ABSENT: calf tenderness, clubbing, pedal edema Neurological exam: PRESENT: alert, awake, oriented to person, oriented to place, oriented to time, oriented to situation, CN II-XII grossly intact. ABSENT: motor sensory deficit Psychiatric exam: PRESENT: appropriate affect, normal mood. ABSENT: homicidal ideation, suicidal ideation Results Laboratory Results: 03/01/19 08:35 03/01/19 08:35 03/01/19 03/01/19 08:35 08:35 WBC 5.9 RBC 2.74 L Hgb 8.7 L Hct 25.3 L MCV 92 MCH 31.6 MCHC 34.3 RDW 15.8 H Plt Count 101 L Seg Neutrophils % 67.3 Lymphocytes % 16.7 Monocytes % 9.3 Eosinophils % 5.8 Basophils % 0.9 Absolute Neutrophils 4.0 Absolute Lymphocytes 1.0 Absolute Monocytes 0.5 Absolute Eosinophils 0.3 Absolute Basophils 0.1 Sodium 135.3 L Potassium 5.0 Chloride 100 Carbon Dioxide 29 Anion Gap 6 BUN 48 H Creatinine 1.84 H Est GFR ( Amer) 33 L Est GFR (Non-Af Amer) 27 L Glucose 180 H Calcium 8.6 Magnesium 2.2 Total Bilirubin 0.5 AST 30 ALT 27 Alkaline Phosphatase 88 Total Protein 5.7 L Albumin 3.0 L 02/14/19 02/14/19 02/22/19 14:50 14:50 13:30 Creatine Kinase 112 CK-MB (CK-2) 2.05 Troponin I < 0.012 0.016 NT-Pro-B Natriuret Pep 02/24/19 02/26/19 02/27/19 03:55 04:30 05:35 Creatine Kinase CK-MB (CK-2) Troponin I NT-Pro-B Natriuret Pep 4580 H 4130 H 3600 H 02/28/19 03:35 Creatine Kinase CK-MB (CK-2) Troponin I NT-Pro-B Natriuret Pep 3450 H Impressions: Breast Ultrasound 02/14/19 17:51 IMPRESSION: No evidence of abscess. Thickened scan and breast tissue edema is consistent with cellulitis/mastitis. Abdomen/Pelvis CT 02/19/19 00:00 IMPRESSION: 1. Cardiomegaly with pulmonary vascular congestion and bilateral pleural effusions. 2. There is small amount of fluid in the colic gutter on the left. Diverticulosis coli. 3. Lumbar degenerative changes. 4. Subcutaneous edema. Chest X-Ray 02/24/19 00:00 IMPRESSION: STABLE APPEARANCE. Shoulder X-Ray 02/24/19 00:00 IMPRESSION: DEGENERATIVE CHANGES. NO ACUTE FINDINGS. Assessment and Plan - Diagnosis (1) Acute renal failure superimposed on stage 3 chronic kidney disease Qualifiers: Acute renal failure type: unspecified Qualified Code(s): N17.9 - Acute kidney failure, unspecified; N18.3 - Chronic kidney disease, stage 3 (moderate) Is this a current diagnosis for this admission?: Yes Plan: Resolved. Nephrology has stopped her IV fluids and started some Lasix to help remove some excess accumulated fluid. She is back on oral Lasix, monitoring her fluid intake. 02/24/[id number]-aavu-old female admitted for acute on chronic renal failure nephrology on board. Admission creatinine was 4.63 latest creatinine is 2.1. Patient is on Lasix 20 mg IV every 8 hours plan is to change the Lasix to 20 mg p.o. twice daily. To do the chest x-ray and repeat the BNP levels today. Patient is nonoliguric urinary output is 1450 yesterday with a negative balance of 1.1 L. Looks like her baseline creatinine may be around 1.6-1.8. 02/25/2019-patient admitted with a creatinine of 4.63 and latest creatinine is 2.08 acute on chronic renal failure is resolving. Baseline creatinine probably is around 1.8. Patient is presently on Lasix 20 mg p.o. twice daily. Nonoliguric. Urinary output is 1325 yesterday negative balance of 1300. Plan is to continue the p.o. Lasix. 02/26/[id number]-luak-old female admitted with serum creatinine 4.63 due to improved to 1.88. Most likely secondary to diuretic therapy. Nephrology on board. No need for renal replacement therapy. Presently on Lasix 20 mg p.o. twice daily. Patient's urinary output is 2.2 L yesterday. Negative balance of 1800 mL. Plan is to continue the present management. 02/27/2019-with acute on chronic renal failure. Patient has a stage III kidney disease. Creatinine today is 1.92. Stable. Baseline creatinine is around 1.8- 1.9. Presently on Lasix 20 mg p.o. twice a day. BNP is 2600. Patient has a positive fluid balance of 571 yesterday. Slight pedal edema present. Pulse ox are at baseline. Plan is to continue the present management. 02/28/2019-patient was admitted with acute on chronic renal failure. Patient creatinine today is 1.93 stable. Looks like a baseline creatinine is around 1.8-1.9. Recently on Lasix 20 mg p.o. twice a day. Nonoliguric. No pedal edema on examination. Plan is to continue the present management. 03/01/2019-patient admitted with acute on chronic renal failure. Today's creati nine is 1.84. New baseline. Presently on Lasix 20 mg p.o. twice daily. Nonoliguric. Negative fluid balance of around 1 L yesterday. Plan is to continue the present management. (2) Anemia of chronic disease Is this a current diagnosis for this admission?: Yes Plan: We will repeat CBC in the a.m. 02/24/2019 patient's hemoglobin is 8.1 stable. Patient is receiving Procrit injections as per nephrology recommendations. To repeat the labs tomorrow. 02/25/2019-patient hemoglobin dropped to 7.4. It dropped from 8.1. Plan to give 1 unit of PRBC today. Patient is receiving Procrit injections. Anemia of chronic disease most likely secondary to underlying chronic kidney disease. 02/26/2019-patient hemoglobin is 7.8 today. Patient received Procrit 40,000 units yesterday. Plan to give the medication every week. If the hemoglobin drops to less than 7.5 we will give 2 units of PRBC. 02/27/2019-patient's hemoglobin today is 8.3. She received 1 unit of PRBC yesterday. And she is also on Procrit 40,000 units every week. plan Is to continue Procrit as an outpatient at rehab facility. 02/28/2019-patient's hemoglobin is 8.2. She received 1 unit PRBC 2 days ago. She is also on Procrit 40,000 units q. weekly. Plan is to continue Procrit at a rehab facility. Anemia of chronic disease most likely secondary to CKD. 03/01/2019-patient hemoglobin is 8.7. Stable. Patient received 1 unit of PRBC. Presently on Procrit 40,000 units weekly (3) Cellulitis of left breast Is this a current diagnosis for this admission?: Yes (4) Hyperkalemia Is this a current diagnosis for this admission?: Yes Plan: Resolved, patiromer stopped 02/24/2019-serum potassium level today is 5.3. Try to give Kayexalate unfortu nately in the back order. To give a Veltassa 24.6 g today. plan to do the labs tomorrow. 02/25/2019-patient serum potassium is 5.0. Yesterday it was 5.3. She was given a Veltassa yesterday. Plan to repeat the labs tomorrow. 02/26/2019 serum potassium is 4.4 hyperkalemia is resolved. 02/28/2019-patient serum potassium is 5.3 today. Patient is presently on mag citrate, to give Dulcolax suppository for a fecal impaction hyperkalemia may be secondary to constipation/fecal impaction. To repeat the labs tomorrow. 03/01/2019-serum potassium is 5.0 today. Plan is to continue mag citrate on a daily basis and discontinue Dulcolax and lactulose. (5) Morbid obesity with BMI of 40.0-44.9, adult Is this a current diagnosis for this admission?: Yes (6) Hypertension Is this a current diagnosis for this admission?: No Plan: 02/24/2019-patient history of chronic hypertension presently on amlodepine 10 mg daily, lisinopril 10 mg daily, Lasix 20 mg p.o. twice daily today blood pressure is 154/46. Low-sodium diet low-carb diet was recommended. Plan to check the blood pressures every shift. 02/25/2019-patient blood pressure today is 127/50 stable. On amlodipine 10 mg daily, lisinopril 10 mg daily, Lasix 20 mg p.o. twice a day plan is to hold the lisinopril for now because of the acute on chronic kidney injury. Surprisingly patient is also on losartan 25 mg p.o. daily, plan is to continue losartan for now. to discontinue lisinopril. 02/26/2019-patient blood pressure today is 118/49. Presently on amlodipine 10 mg daily, Lasix 20 mg p.o. twice a day, losartan 25 mg p.o. daily. Plan is to continue the present management. 02/27/2019-patient blood pressure today is 136/50. Stable. Presently on Lasix 20 mg p.o. twice a day, losartan 25 mg p.o. daily, amlodipine 10 mg p.o. daily. Plan is to continue the present management. 02/28/2019-patient blood pressure today is 117/65. Presently on p.o. Lasix 20 mg twice a day, losartan 25 mg p.o. daily, amlodipine 10 mg p.o. daily. Plan is to continue the present management. 03/01/2019-patient blood pressure is 128/43. Pulse rate of 68. On Lasix 20 mg p.o. daily, losartan 25 mg daily, amlodipine 10 mg daily. Plan is to continue the present management. (7) Acute respiratory failure with hypoxia Is this a current diagnosis for this admission?: Yes Plan: She does have a history of COPD and congestive heart failure. Oxygen s upplementation to keep saturation between 88 and 94%. She told me she is on oxygen at home. Diuresis should also help her keep from having any trouble breathing. 02/24/2019-patient has history of COPD patient is on oxygen at home 2 L. Pulse ox is 100% on 5 L this morning. Plan to decrease the present to 3 L on check the pulse ox is again. Plan to repeat the chest x-ray. Underlying CHF may be also contributing factor for hypoxia. 02/25/2019-patient has history of COPD on home oxygen. Pulse ox is 100% on 4 L today. Plan to request the nurse to decrease the oxygen requirements to 2 L and to check the pulse ox again. On examination patient is not in distress. Acute respiratory failure with hypoxia resolving. 02/26/2019-patient has a history of COPD on home oxygen pulse ox today is 100% on 2 L. Much improved. Chest examination bilateral entry was decreased crackles are present most likely secondary to chronic interstitial changes. 02/27/2019-pulse ox is 97% on 2 L. Patient has a history of COPD on 2 L oxygen at home. oxygen requirements are at baseline. 02/28/2019-patient pulse ox is 98% on 2 L. Oxygen requirements are at baseline. On examination chest bilateral entry is decreased no wheezing no crepitations. 03/01/2019-patient's pulse ox is 99% on 3 L. Oxygen requirements are at baseline. Plan is to continue the present management. (8) Diabetes mellitus type 2 in obese Is this a current diagnosis for this admission?: Yes Plan: Currently on Lantus and a sliding scale. Lantus was increased today to 24 units twice daily. 02/24/2019-patient has history of type 2 diabetes mellitus. Latest blood sugar is 129. On Lantus 24 units twice a day. Plan to check hemoglobin A1c tomorrow. Dietary consult was requested. 02/25/2019-patient's latest blood sugar is 178. On Lantus 24 units subcu twice a day and insulin sliding scale before meals and at bedtime. Plan to increase the Lantus to 30 units twice a day and continue the sliding scale. Hemoglobin A1c is pending. 02/26/2019-patient latest blood sugar is 110 she is receiving 30 units of Lantus twice a day. Blood sugar dropped to 40 this morning. To hold morning dose of insulin and hemoglobin A1c came back 5.9. Plan to decrease the insulin to 20 units twice a day. 02/27/2019-patient latest blood sugar is 115. She did not receive Lantus last night. Blood sugars are stable this morning. Hemoglobin A1c is 5.9. Plan is to decrease the insulin Lantus to 15 units twice a day. Continue insulin sliding scale before meals and at bedtime. 02/28/2019-patient blood sugar is 185. She did not receive any Lantus last night. Hemoglobin A1c is 5.9. Plan is to decrease the Lantus to 10 units twice a day and continue sling sliding scale before meals and at bedtime. 03/01/2019-patient latest blood sugar is 180. Hemoglobin A1c is 5.9. Presently on Lantus twice a day. And plan to continue insulin sliding scale before meals and at bedtime. (9) CHF exacerbation Qualifiers: Heart failure type: diastolic Qualified Code(s): I50.33 - Acute on chronic diastolic (congestive) heart failure Is this a current diagnosis for this admission?: No Plan: 02/24/2019-patient has history of congestive heart failure. Echocardiogram was done in January this year shows normal left ventricular ejection fraction. At the same time it showing grade 2/grade 4 mild to moderate diastolic dysfunction. Most likely patient is a chronic diastolic heart failure. Plan to repeat the chest x-ray and BNP level today. Presently on Lasix 20 mg p.o. twice daily. To check daily weights. Placed on fluid restriction 1500 mL/day. 02/25/2019-patient is on fluid restriction 1500 mL/day. Also on Lasix 20 mg p.o. twice a day chest x-ray shows mild vascular prominence. Pulse ox is 100% on 4 L. Recent echocardiogram shows normal left ventricular ejection fraction but she has chronic diastolic heart failure. On examination mild pedal edema present. Patient is going to receive Lasix 40 mg IV 1 dose after blood transfusion. 02/26/2019-patient is on fluid restriction 1500 mL/h and she is also receiving Lasix 20 mg p.o. twice a day. Chest x-ray suggestive of mild vascular prominence. Pulse ox is 100% on 2 L. Echocardiogram suggestive of chronic diastolic heart failure. Pedal edema is improving. Plan to continue Lasix 20 mg p.o. twice a day. 02/27/2019-patient has history of a chronic diastolic heart failure. Pedal edema improving. Latest BNP is 3600. Latest x-ray did not indicate any pulmonary congestion. Plan is to continue Lasix 20 mg p.o. twice a day. 02/28/2019-patient has history of chronic diastolic heart failure. Latest BNP around 3450. Chest x-ray shows mild congestion. No pedal edema. No signs of any fluid overload. Present on Lasix 20 mg p.o. twice a day. Plan is to continue the present management. 03/01/2019-patient has a history of chronic diastolic heart failure. Presently on Lasix 20 mg p.o. twice a day. Plan is to continue the present management check BNP tomorrow. (10) Atrial fibrillation Qualifiers: Atrial fibrillation type: paroxysmal Qualified Code(s): I48.0 - Paroxysmal atrial fibrillation Is this a current diagnosis for this admission?: Yes Plan: Good heart rate control on metoprolol. No change in regimen. 02/24/2019-patient has chronic atrial fibrillation. Not on anticoagulation. Presently heart rate is 51. Metoprolol 25 mg p.o. daily is discontinued. Plan is to continue the present management. Plan to start on Eliquis 2.5 mg p.o. twice daily if it is okay with the patient. 02/25/2019-patient has a chronic atrial fibrillation presently heart rate is 55 not on beta-blockers. Eliquis 2.5 mg p.o. twice a day. 02/26/2019-patient has history of chronic atrial fibrillation heart rate is 65. Rate controlled. She is on Eliquis 2.5 mg twice a day. Plan is to continue the present management. 02/27/2019-patient's heart rate today is 56. Rate controlled. On Eliquis 2.5 mg p.o. daily plan is to continue the present management. 02/28/2019-patient heart rate is 66. Patient has a history of a defibrillator controlled. Presenting Eliquis 2.5 mg p.o. twice daily. Plan is to continue the present management. 03/01/2019-patient's heart rate is 68 rate controlled. Chronic atrial fibrillation Eliquis was discontinued because of the chronic anemia with hemoglobin of less than 9. (11) Constipation Is this a current diagnosis for this admission?: Yes Plan: 03/01/2019-patient history of chronic constipation. Patient may developed fecal impaction because of the bedbound status. Fecal impaction was done yesterday. Plan is to continue mag citrate at this point. - Time Time Spent with patient: 25-34 minutes Medications reviewed and adjusted accordingly: Yes Anticipated discharge: SN[facility]
[2019-03-01] MEDS: NYSTATIN/DEXAMETH/DIPHEN SUSP 120 ML PO SCH ×3 (09:54→17:56)
[2019-03-01] MEDS: INSULIN GLARGINE,HUM.REC.ANLOG 1,000 UNIT/10 ML VIAL SUBCUT SCH ×2 (09:54→21:59)
[2019-03-01] MEDS: GABAPENTIN 300 MG CAPSULE PO SCH ×2 (09:54→21:59)
[2019-03-01] MEDS: FLUTICASONE/VILANTEROL 200-25 MCG/DOSE IH SCH (09:55)
[2019-03-01] MEDS: MAGNESIUM CITRATE 296 ML BOTTLE PO SCH (09:55)
[2019-03-01] MEDS: FENOFIBRATE NANOCRYSTALLIZED 145 MG TABLET PO SCH (09:56)
[2019-03-01] MEDS: LOSARTAN POTASSIUM 25 MG TABLET PO SCH (09:56)
[2019-03-01] MEDS: EZETIMIBE 10 MG TABLET PO SCH (09:57)
[2019-03-01] MEDS: OXYCODONE-ACETAMINOPHEN 5-325 MG TABLET PO PRN ×2 (10:07→17:58)
--- NOTE | 2019-03-01 11:06 | RADIOLOGY REPORT (SQ) ---
EXAM DESCRIPTION: ACUTE ABDOMEN SERIES COMPLETED DATE/TIME: 03/01/2019 10:57 am REASON FOR STUDY: abd pain COMPARISON: 01/04/2016 NUMBER OF VIEWS: Three views. TECHNIQUE: Frontal chest, supine abdomen and upright/decubitus abdomen radiographic images acquired. LIMITATIONS: None. FINDINGS: CHEST: Heart enlarged. Vascular congestion. CABG hardware. FREE AIR: None. No abnormal gas collections. Constipation. BOWEL GAS PATTERN: Nonobstructive pattern. No dilated loops or air fluid levels. CALCIFICATIONS: No suspicious calcifications. HARDWARE: None in the abdomen. SOFT TISSUES: No gross mass or suggestion of organomegaly. BONES: Marked degenerative changes in the spine. OTHER: No other significant finding. IMPRESSION: Vascular congestion cardiac enlargement. Constipation. TECHNICAL DOCUMENTATION: JOB ID: [id number] [employer]- All Rights Reserved Reading location - IP/workstation name: [email or web address]
[2019-03-01] MEDS: CYCLOSPORINE 0.05% OPH EMULSIO 0.4 ML DROPERETTE OU SCH ×2 (12:30→22:05)
[2019-03-01] MEDS: MONTELUKAST SODIUM 10 MG TABLET PO SCH (17:56)
[2019-03-01] MEDS: DIPHENHYDRAMINE HCL 25 MG CAPSULE PO SCH (21:59)
[2019-03-01] MEDS: ATORVASTATIN CALCIUM 40 MG TABLET PO SCH (21:59)
[2019-03-02] MEDS: HEPARIN SOD (PORCINE) 5,000 UNIT/ML 1 ML SYRINGE SUBCUT SCH ×2 (05:05→14:23)
[2019-03-02 05:43] LABS: ABSOLUTE EOSINOPHILS # (AUTO) 0.3 10^3/uL (0.0-0.6); ABSOLUTE MONOCYTES (AUTO) 0.4 10^3/uL (0.1-1.4); ABSOLUTE NEUT (AUTO) 3.1 10^3/uL (1.7-8.2); BASOPHILS % (AUTO) 0.9 % (0-2); EOSINOPHILS % (AUTO) 6.6 % (0-6); HEMATOCRIT 23.7 % (36.0-47.0); LYMPHOCYTES % (AUTO) 20.4 % (13-45); MEAN CORPUSCULAR HEMOGLOBIN 30.9 pg (27.0-33.4); MEAN CORPUSCULAR VOLUME 93 fl (80-97); MONOCYTES % (AUTO) 8.9 % (3-13); PLATELET COUNT 102 10^3/uL (150-450); RED BLOOD COUNT 2.54 10^6/uL (3.72-5.28); RED CELL DISTRIBUTION WIDTH 16.1 % (11.5-14.0); SEGMENTED NEUTROPHILS % (AUTO) 63.2 % (42-78); TOTAL CELLS COUNTED % (AUTO) 100 %
[2019-03-02 05:46] LABS: HEMOGLOBIN 7.8 g/dL (12.0-15.5)
[2019-03-02 06:10] LABS: ALANINE AMINOTRANSFERASE 25 U/L (9-52); ALBUMIN 2.7 g/dL (3.5-5.0); ALKALINE PHOSPHATASE 76 U/L (38-126); ASPARTATE AMINO TRANSFERASE 27 U/L (14-36); BILIRUBIN,DIRECT 0.3 mg/dL (0.0-0.4); BILIRUBIN,TOTAL 0.4 mg/dL (0.2-1.3); BLOOD UREA NITROGEN 48 mg/dL (7-20); CALCIUM 8.5 mg/dL (8.4-10.2); GLUCOSE 79 mg/dL (75-110); POTASSIUM 5.1 mmol/L (3.6-5.0); TOTAL PROTEIN 5.2 g/dL (6.3-8.2)
[2019-03-02 06:15] LABS: ANION GAP 5 (5-19); CARBON DIOXIDE 31 mmol/L (22-30); CHLORIDE 101 mmol/L (98-107); SODIUM 136.8 mmol/L (137-145)
[2019-03-02] MEDS: OXYCODONE-ACETAMINOPHEN 5-325 MG TABLET PO PRN (06:34)
[2019-03-02] MEDS: INSULIN LISPRO 100 UNIT/ML 3 ML VIAL SUBCUT SCH ×2 (07:40→12:48)
[2019-03-02] MEDS: FLUTICASONE/VILANTEROL 200-25 MCG/DOSE IH SCH (09:35)
[2019-03-02] MEDS: CYCLOSPORINE 0.05% OPH EMULSIO 0.4 ML DROPERETTE OU SCH (09:36)
[2019-03-02] MEDS: NYSTATIN/DEXAMETH/DIPHEN SUSP 120 ML PO SCH ×2 (09:36→14:01)
[2019-03-02] MEDS: GABAPENTIN 300 MG CAPSULE PO SCH (09:37)
[2019-03-02] MEDS: FENOFIBRATE NANOCRYSTALLIZED 145 MG TABLET PO SCH (09:37)
[2019-03-02] MEDS: INSULIN GLARGINE,HUM.REC.ANLOG 1,000 UNIT/10 ML VIAL SUBCUT SCH (09:37)
[2019-03-02] MEDS: EZETIMIBE 10 MG TABLET PO SCH (09:38)
[2019-03-02] MEDS: FUROSEMIDE 20 MG TABLET PO SCH (09:38)
[2019-03-02] MEDS: AMLODIPINE BESYLATE 10 MG TABLET PO SCH (09:38)
[2019-03-02] MEDS: ASPIRIN 81 MG TABLET, CHEWABLE PO SCH (09:38)
[2019-03-02] MEDS: LOSARTAN POTASSIUM 25 MG TABLET PO SCH (09:38)
[2019-03-02] MEDS: ISOSORBIDE MONONITRATE 60 MG TAB.ER.24H PO SCH (09:38)
[2019-03-02] MEDS: CLOPIDOGREL BISULFATE 75 MG TABLET PO SCH (09:38)
[2019-03-02 13:50] VITALS: BP 130/48
--- NOTE | 2019-03-02 13:58 | PDOC TRANSFER SUMMARY ---
General - Admit/Disc Date/PCP Admission Date/Primary Care Provider: 02/14/19 18:08 DANI PANDA, Discharge Date: 03/02/19 - Discharge Diagnosis (1) Acute renal failure superimposed on stage 3 chronic kidney disease Is this a current diagnosis for this admission?: Yes Summary: Resolved. Nephrology has stopped her IV fluids and started some Lasix to help remove some excess accumulated fluid. She is back on oral Lasix, monitoring her fluid intake. 02/24/[id number]-fqov-old female admitted for acute on chronic renal failure nephrology on board. Admission creatinine was 4.63 latest creatinine is 2.1. Patient is on Lasix 20 mg IV every 8 hours plan is to change the Lasix to 20 mg p.o. twice daily. To do the chest x-ray and repeat the BNP levels today. Patient is nonoliguric urinary output is 1450 yesterday with a negative balance of 1.1 L. Looks like her baseline creatinine may be around 1.6-1.8. 02/25/2019-patient admitted with a creatinine of 4.63 and latest creatinine is 2.08 acute on chronic renal failure is resolving. Baseline creatinine probably is around 1.8. Patient is presently on Lasix 20 mg p.o. twice daily. Nonoliguric. Urinary output is 1325 yesterday negative balance of 1300. Plan is to continue the p.o. Lasix. 02/26/[id number]-fqaw-old female admitted with serum creatinine 4.63 due to improved to 1.88. Most likely secondary to diuretic therapy. Nephrology on board. No need for renal replacement therapy. Presently on Lasix 20 mg p.o. twice daily. Patient's urinary output is 2.2 L yesterday. Negative balance of 1800 mL. Plan is to continue the present management. 02/27/2019-with acute on chronic renal failure. Patient has a stage III kidney disease. Creatinine today is 1.92. Stable. Baseline creatinine is around 1.8- 1.9. Presently on Lasix 20 mg p.o. twice a day. BNP is 2600. Patient has a positive fluid balance of 571 yesterday. Slight pedal edema present. Pulse ox are at baseline. Plan is to continue the present management. 02/28/2019-patient was admitted with acute on chronic renal failure. Patient creatinine today is 1.93 stable. Looks like a baseline creatinine is around 1.8-1.9. Recently on Lasix 20 mg p.o. twice a day. Nonoliguric. No pedal edema on examination. Plan is to continue the present management. 03/01/2019-patient admitted with acute on chronic renal failure. Today's creatinine is 1.84. New baseline. Presently on Lasix 20 mg p.o. twice daily. Nonoliguric. Negative fluid balance of around 1 L yesterday. Plan is to continue the present management. 03/02/[id number]-aeyw-old female admitted for acute on chronic renal insufficiency. Baseline creatinine now is between 1.8-1.9. She is on Lasix 20 mg p.o. twice a day. At the time of admission creatinine is 4.63. Acute on chronic kidney injury most likely secondary to poor oral intake is resolved now. (2) Anemia of chronic disease Is this a current diagnosis for this admission?: Yes Summary: We will repeat CBC in the a.m. 02/24/2019 patient's hemoglobin is 8.1 stable. Patient is receiving Procrit injections as per nephrology recommendations. To repeat the labs tomorrow. 02/25/2019-patient hemoglobin dropped to 7.4. It dropped from 8.1. Plan to give 1 unit of PRBC today. Patient is receiving Procrit injections. Anemia of chronic disease most likely secondary to underlying chronic kidney disease. 02/26/2019-patient hemoglobin is 7.8 today. Patient received Procrit 40,000 units yesterday. Plan to give the medication every week. If the hemoglobin drops to less than 7.5 we will give 2 units of PRBC. 02/27/2019-patient's hemoglobin today is 8.3. She received 1 unit of PRBC yesterday. And she is also on Procrit 40,000 units every week. plan Is to continue Procrit as an outpatient at rehab facility. 02/28/2019-patient's hemoglobin is 8.2. She received 1 unit PRBC 2 days ago. She is also on Procrit 40,000 units q. weekly. Plan is to continue Procrit at a rehab facility. Anemia of chronic disease most likely secondary to CKD. 03/01/2019-patient hemoglobin is 8.7. Stable. Patient received 1 unit of PRBC. Presently on Procrit 40,000 units weekly 03/02/2019-patient's hemoglobin today 7.8. Anemia of chronic disease most likely secondary to CKD. She is receiving Procrit injections 40,000 units q. weekly as per washing machine striper. Plan is to continue the Procrit injections during the care home stay. (3) Cellulitis of left breast Is this a current diagnosis for this admission?: Yes Summary: 02/28/2019-patient came in with the left breast cellulitis. She was treated with appropriate antibiotic therapy and cultures are negative. Antibiotics are discontinued few days ago patient remains afebrile throughout the hospital cours e. (4) Hyperkalemia Is this a current diagnosis for this admission?: Yes Summary: 03/02/2019-patient serum potassium today is 5.1 potassium levels are always had a borderline high low potassium diet was requested and patient need to continue Lasix 20 mg p.o. twice daily at the care home. hyPerkalemia may be secondary to chronic kidney disease and constipation. (5) Morbid obesity with BMI of 40.0-44.9, adult Is this a current diagnosis for this admission?: Yes (6) Hypertension Is this a current diagnosis for this admission?: No Summary: 02/24/2019-patient history of chronic hypertension presently on amlodepine 10 mg daily, lisinopril 10 mg daily, Lasix 20 mg p.o. twice daily today blood pressure is 154/46. Low-sodium diet low-carb diet was recommended. Plan to check the blood pressures every shift. 02/25/2019-patient blood pressure today is 127/50 stable. On amlodipine 10 mg daily, lisinopril 10 mg daily, Lasix 20 mg p.o. twice a day plan is to hold the lisinopril for now because of the acute on chronic kidney injury. Surprisingly patient is also on losartan 25 mg p.o. daily, plan is to continue losartan for now. to discontinue lisinopril. 02/26/2019-patient blood pressure today is 118/49. Presently on amlodipine 10 mg daily, Lasix 20 mg p.o. twice a day, losartan 25 mg p.o. daily. Plan is to continue the present management. 02/27/2019-patient blood pressure today is 136/50. Stable. Presently on Lasix 20 mg p.o. twice a day, losartan 25 mg p.o. daily, amlodipine 10 mg p.o. daily. Plan is to continue the present management. 02/28/2019-patient blood pressure today is 117/65. Presently on p.o. Lasix 20 mg twice a day, losartan 25 mg p.o. daily, amlodipine 10 mg p.o. daily. Plan is to continue the present management. 03/01/2019-patient blood pressure is 128/43. Pulse rate of 68. On Lasix 20 mg p.o. daily, losartan 25 mg daily, amlodipine 10 mg daily. Plan is to continue the present management. 03/02/2019-patient blood pressure today is 117/52. Stable. Pulse rate of 58. Presently on Lasix 20 mg p.o. daily, losartan 25 mg p.o. daily, amlodipine 10 mg daily. Patient is advised to continue these medications at care home. (7) Acute respiratory failure with hypoxia Is this a current diagnosis for this admission?: Yes Summary: She does have a history of COPD and congestive heart failure. Oxygen supplementation to keep saturation between 88 and 94%. She told me she is on oxygen at home. Diuresis should also help her keep from having any trouble breathing. 02/24/2019-patient has history of COPD patient is on oxygen at home 2 L. Pulse ox is 100% on 5 L this morning. Plan to decrease the present to 3 L on check the pulse ox is again. Plan to repeat the chest x-ray. Underlying CHF may be also contributing factor for hypoxia. 02/25/2019-patient has history of COPD on home oxygen. Pulse ox is 100% on 4 L today. Plan to request the nurse to decrease the oxygen requirements to 2 L and to check the pulse ox again. On examination patient is not in distress. Acute respiratory failure with hypoxia resolving. 02/26/2019-patient has a history of COPD on home oxygen pulse ox today is 100% on 2 L. Much improved. Chest examination bilateral entry was decreased crackles are present most likely secondary to chronic interstitial changes. 02/27/2019-pulse ox is 97% on 2 L. Patient has a history of COPD on 2 L oxygen at home. oxygen requirements are at baseline. 02/28/2019-patient pulse ox is 98% on 2 L. Oxygen requirements are at baseline. On examination chest bilateral entry is decreased no wheezing no crepitations. 03/01/2019-patient's pulse ox is 99% on 3 L. Oxygen requirements are at baseline. Plan is to continue the present management. 03/02/2019-patient's pulse ox today is 100% on 3 L. Oxygen requirements are back to baseline. Acute respiratory failure with hypoxia secondary to COPD exacerbation is resolved. (8) Diabetes mellitus type 2 in obese Is this a current diagnosis for this admission?: Yes Summary: Currently on Lantus and a sliding scale. Lantus was increased today to 24 units twice daily. 02/24/2019-patient has history of type 2 diabetes mellitus. Latest blood sugar is 129. On Lantus 24 units twice a day. Plan to check hemoglobin A1c tomorrow. Dietary consult was requested. 02/25/2019-patient's latest blood sugar is 178. On Lantus 24 units subcu twice a day and insulin sliding scale before meals and at bedtime. Plan to increase the Lantus to 30 units twice a day and continue the sliding scale. Hemoglobin A1c is pending. 02/26/2019-patient latest blood sugar is 110 she is receiving 30 units of Lantus twice a day. Blood sugar dropped to 40 this morning. To hold morning dose of insulin and hemoglobin A1c came back 5.9. Plan to decrease the insulin to 20 units twice a day. 02/27/2019-patient latest blood sugar is 115. She did not receive Lantus last night. Blood sugars are stable this morning. Hemoglobin A1c is 5.9. Plan is to decrease the insulin Lantus to 15 units twice a day. Continue insulin sliding scale before meals and at bedtime. 02/28/2019-patient blood sugar is 185. She did not receive any Lantus last night. Hemoglobin A1c is 5.9. Plan is to decrease the Lantus to 10 units twice a day and continue sling sliding scale before meals and at bedtime. 03/01/2019-patient latest blood sugar is 180. Hemoglobin A1c is 5.9. Presently on Lantus twice a day. And plan to continue insulin sliding scale before meals and at bedtime. 2018-patient is latest blood sugar is 86. Hemoglobin A1c is 5.9. Presently on Lantus 10 units twice a day insulin sliding scale. Patient is advised to continue the medication in the care home. (9) CHF exacerbation Is this a current diagnosis for this admission?: No Summary: 02/24/2019-patient has history of congestive heart failure. Echocardiogram was done in January this year shows normal left ventricular ejection fraction. At the same time it showing grade 2/grade 4 mild to moderate diastolic dysfunction. Most likely patient is a chronic diastolic heart failure. Plan to repeat the chest x-ray and BNP level today. Presently on Lasix 20 mg p.o. twice daily. To check daily weights. Placed on fluid restriction 1500 mL/day. 02/25/2019-patient is on fluid restriction 1500 mL/day. Also on Lasix 20 mg p.o. twice a day chest x-ray shows mild vascular prominence. Pulse ox is 100% on 4 L. Recent echocardiogram shows normal left ventricular ejection fraction but she has chronic diastolic heart failure. On examination mild pedal edema present. Patient is going to receive Lasix 40 mg IV 1 dose after blood transfusion. 02/26/2019-patient is on fluid restriction 1500 mL/h and she is also receiving Lasix 20 mg p.o. twice a day. Chest x-ray suggestive of mild vascular prominence. Pulse ox is 100% on 2 L. Echocardiogram suggestive of chronic diastolic heart failure. Pedal edema is improving. Plan to continue Lasix 20 mg p.o. twice a day. 02/27/2019-patient has history of a chronic diastolic heart failure. Pedal edema improving. Latest BNP is 3600. Latest x-ray did not indicate any pulmonary congestion. Plan is to continue Lasix 20 mg p.o. twice a day. 02/28/2019-patient has history of chronic diastolic heart failure. Latest BNP around 3450. Chest x-ray shows mild congestion. No pedal edema. No signs of any fluid overload. Present on Lasix 20 mg p.o. twice a day. Plan is to continue the present management. 03/01/2019-patient has a history of chronic diastolic heart failure. Presently on Lasix 20 mg p.o. twice a day. Plan is to continue the present management c heck BNP tomorrow. 03/02/2019-patient has a history of chronic diastolic heart failure on Lasix. 20 mg grams twice a day and patient is euvolemic now plan is to continue the present management. (10) Atrial fibrillation Is this a current diagnosis for this admission?: Yes Summary: Good heart rate control on metoprolol. No change in regimen. 02/24/2019-patient has chronic atrial fibrillation. Not on anticoagulation. Presently heart rate is 51. Metoprolol 25 mg p.o. daily is discontinued. Plan is to continue the present management. Plan to start on Eliquis 2.5 mg p.o. twice daily if it is okay with the patient. 02/25/2019-patient has a chronic atrial fibrillation presently heart rate is 55 not on beta-blockers. Eliquis 2.5 mg p.o. twice a day. 02/26/2019-patient has history of chronic atrial fibrillation heart rate is 65. Rate controlled. She is on Eliquis 2.5 mg twice a day. Plan is to continue the present management. 02/27/2019-patient's heart rate today is 56. Rate controlled. On Eliquis 2.5 mg p.o. daily plan is to continue the present management. 02/28/2019-patient heart rate is 66. Patient has a history of a defibrillator controlled. Presenting Eliquis 2.5 mg p.o. twice daily. Plan is to continue the present management. 03/01/2019-patient's heart rate is 68 rate controlled. Chronic atrial fibrillation Eliquis was discontinued because of the chronic anemia with hemoglobin of less than 9. 03/02/2019-patient has a history of chronic atrial fibrillation Eliquis was discontinued because of the low hemoglobin. (11) Constipation Is this a current diagnosis for this admission?: Yes - Additional Information Resuscitation Status: Do Not Resuscitate Discharge Diet: Diabetic, Other (Comments) Discharge Activity: Activity As Tolerated, Balance Activity w/Rest, Weigh Daily Prescriptions: Oxycodone HCl/Acetaminophen [Endocet 5-325 Tablet] 1 each PO Q6HP PRN #15 tablet PRN Reason: For Pain Home Medications: Albuterol Sulfate [Proair HFA Inhalation Aerosol 8.5 gm MDI] 2 puff IH Q8HP PRN 01/28/19 Aspirin [Aspirin 81 mg Chewable Tablet] 81 mg PO DAILY 01/28/19 Clopidogrel Bisulfate [Plavix 75 mg Tablet] 75 mg PO DAILY 01/28/19 Diphenhydramine HCl [Allergy Relief] 25 mg PO QHS 01/28/19 Ezetimibe [Zetia 10 mg Tablet] 10 mg PO DAILY 01/28/19 Fenofibrate 160 mg PO DAILY 01/28/19 Fluticasone/Salmeterol [Advair 250-50 Diskus 14 Dose/Diskus] 1 inh IH Q12 01/28/19 Gabapentin [Neurontin] 600 mg PO Q12 01/28/19 Isosorbide Mononitrate [Imdur 60 mg Tablet.er] 60 mg PO DAILY 01/28/19 Linaclotide [Linzess] 72 mcg PO DAILY 01/28/19 Metoprolol Succinate [Toprol Xl 25 mg Tab.sr] 25 mg PO DAILY 01/28/19 Montelukast Sodium [Singulair 10 mg Tablet] 10 mg PO QPM 01/28/19 Nitroglycerin [Nitrostat 0.4 mg (1/150 Gr) Tabs 25/Bottle] 1 tab SL Q5MP PRN 01/28/19 Omeprazole 40 mg PO BID 01/28/19 Ondansetron [Ondansetron Odt] 8 mg PO Q4HP PRN 01/28/19 Rosuvastatin Calcium [Crestor] 40 mg PO QHS 01/28/19 Hydroxyzine Pamoate [Vistaril 50 mg Capsule] 50 mg PO TIDP PRN 02/15/19 Acetaminophen [Tylenol 325 mg Tablet] 650 mg PO Q6HP PRN tablet 03/02/19 Amlodipine Besylate [Norvasc 10 mg Tablet] 10 mg PO DAILY tablet 03/02/19 Atorvastatin Calcium [Lipitor 40 mg Tablet] 40 mg PO QHS tablet 03/02/19 Cyclosporine 0.05% Oph Emulsio [Restasis 0.05% Oph Emulsion Pf 0.4 ml] 1 drop OU Q12 droperette 03/02/19 Epoetin Aung [Procrit Inj 40,000 Unit/1 ml Vial (Renal)] 40,000 unit SUBCUT WE vial 03/02/19 Furosemide [Lasix 20 mg Tablet] 20 mg PO BID tablet 03/02/19 Insulin Glargine,Hum.rec.anlog [Lantus Insulin 100 Unit/1 ml 10 ml] 10 unit SUBCUT Q12 unit 03/02/19 Insulin Lispro [Humalog Insulin (Lispro) 100 unit/mL] 0 - 12 unit SUBCUT ACHS unit 03/02/19 Levalbuterol HCl [Xopenex Neb 1.25 mg/3 ml Ampul] 1.25 mg NEB RTQ6HP PRN vial.neb 03/02/19 Losartan Potassium [Cozaar 25 mg Tablet] 25 mg PO DAILY tablet 03/02/19 Oxycodone HCl/Acetaminophen [Endocet 5-325 Tablet] 1 each PO Q6HP PRN #15 tablet 03/02/19 Oxycodone HCl/Acetaminophen [Percocet 5-325 mg Tablet] 1 tab PO Q6HP PRN tablet 03/02/19 History of Present Illness Admission Date/PCP: 02/14/19 18:08 DANI PANDA DO History of Present Illness: PRECIOUS BURCH is a 73 year old female 73 year old female with a past medical history of chronic obstructive pulmonary disease presented to the emergency department via EMS due to shortness of breath. EMS arrived patient was in respiratory distress with significant tachypnea. Oxygen level was 90%. Multiple visits to the ER and hospitalizations. The patient was treated with supplemental O2 as well as nebulizers. While in the emergency department the patient was given Kayexalate as she was found to have a potassium of greater than 6. Patient has underlying chronic kidney disease and hyperkalemia is a chronic issue for her. According to the patient she had 2 days of excessive diarrhea. Patient stated that she was seen by her primary care provider prior to the diarrhea and her Lasix was doubled given increasing lower extremity edema. The patient states since the time the edema has improved but she is felt quite poorly. The patient was found to have a significant hyperkalemia and a cr of 4.31. Additionally the patient was complaining of left breast pain was found to have appearance of cellulitis as well as yeast under the breast. Given this collection of finding the patient has been referred to the hospitalist for admission and management. Physical Exam Vital Signs: Temp Pulse Resp BP Pulse Ox 98.1 F 70 15 132/44 H 95 03/02/19 07:46 03/02/19 09:50 03/02/19 09:50 03/02/19 07:46 03/02/19 09:50 Intake & Output 03/01/19 03/02/19 03/03/19 06:59 06:59 06:59 Intake Total 570 1680 Output Total 850 1700 Balance -280 -20 Weight 102.1 kg 102.1 kg General appearance: PRESENT: no acute distress Head exam: PRESENT: atraumatic Eye exam: PRESENT: PERRLA Mouth exam: PRESENT: moist, tongue midline Neck exam: ABSENT: carotid bruit, JVD, lymphadenopathy, thyromegaly Respiratory exam: PRESENT: decreased breath sounds Cardiovascular exam: PRESENT: irregular rhythm GI/Abdominal exam: PRESENT: normal bowel sounds, soft. ABSENT: distended, guarding, mass, organolmegaly, rebound, tenderness Rectal exam: PRESENT: deferred Extremities exam: PRESENT: full ROM. ABSENT: calf tenderness, clubbing, pedal edema Neurological exam: PRESENT: alert, awake, oriented to person, oriented to place, oriented to time, oriented to situation, CN II-XII grossly intact. ABSENT: motor sensory deficit Psychiatric exam: PRESENT: appropriate affect, normal mood. ABSENT: homicidal ideation, suicidal ideation Results Laboratory Results: 03/02/19 04:29 03/02/19 04:29 03/02/19 03/02/19 04:29 04:29 WBC 5.0 RBC 2.54 L Hgb 7.8 L Hct 23.7 L MCV 93 MCH 30.9 MCHC 33.0 RDW 16.1 H Plt Count 102 L Seg Neutrophils % 63.2 Lymphocytes % 20.4 Monocytes % 8.9 Eosinophils % 6.6 H Basophils % 0.9 Absolute Neutrophils 3.1 Absolute Lymphocytes 1.0 Absolute Monocytes 0.4 Absolute Eosinophils 0.3 Absolute Basophils 0.0 Sodium 136.8 L Potassium 5.1 H Chloride 101 Carbon Dioxide 31 H Anion Gap 5 BUN 48 H Creatinine 1.99 H Est GFR ( Amer) 30 L Est GFR (Non-Af Amer) 25 L Glucose 79 Calcium 8.5 Magnesium 2.4 H Total Bilirubin 0.4 AST 27 ALT 25 Alkaline Phosphatase 76 Total Protein 5.2 L Albumin 2.7 L 02/14/19 02/14/19 02/22/19 14:50 14:50 13:30 Creatine Kinase 112 CK-MB (CK-2) 2.05 Troponin I < 0.012 0.016 NT-Pro-B Natriuret Pep 02/24/19 02/26/19 02/27/19 03:55 04:30 05:35 Creatine Kinase CK-MB (CK-2) Troponin I NT-Pro-B Natriuret Pep 4580 H 4130 H 3600 H 02/28/19 03:35 Creatine Kinase CK-MB (CK-2) Troponin I NT-Pro-B Natriuret Pep 3450 H Impressions: Breast Ultrasound 02/14/19 17:51 IMPRESSION: No evidence of abscess. Thickened scan and breast tissue edema is consistent with cellulitis/mastitis. Abdomen/Pelvis CT 02/19/19 00:00 IMPRESSION: 1. Cardiomegaly with pulmonary vascular congestion and bilateral pleural effusions. 2. There is small amount of fluid in the colic gutter on the left. Dive rticulosis coli. 3. Lumbar degenerative changes. 4. Subcutaneous edema. Chest X-Ray 02/24/19 00:00 IMPRESSION: STABLE APPEARANCE. Shoulder X-Ray 02/24/19 00:00 IMPRESSION: DEGENERATIVE CHANGES. NO ACUTE FINDINGS. Acute Abdomen Series 03/01/19 00:00 IMPRESSION: Vascular congestion cardiac enlargement. Constipation. Transfer Plan - Time Spent with Patient Time spent with patient: Less than 30 Minutes Qualifiers - * PATIENT BEING DISCHARGED WITH ANY OF THE FOLLOWING DIAGNOSIS: No VTE patient discharged on overlapping Therapy?: No
== END 2019-03-02 17:25 | DRG 682 ==
LOC: ER 14:34 → EH 18:08 → 4N 21:01
PROVIDERS: ADMIT Internal Medicine; ATTEND Internal Medicine
PROC: 30233N1 Transfusion of Nonautologous Red Blood Cells into Peripheral Vein, Percutaneous Approach (ICD-10-PCS; principal; 2019-02-26)
DX: N17.9 Acute kidney failure, unspecified (principal); J96.01 Acute respiratory failure with hypoxia; I50.33 Acute on chronic diastolic (congestive) heart failure; J44.1 Chronic obstructive pulmonary disease with (acute) exacerbation; I13.0 Hypertensive heart and chronic kidney disease with heart failure and stage 1 through stage 4 chronic kidney disease, or unspecified chronic kidney disease; Z68.41 Body mass index [BMI] 40.0-44.9, adult; E87.5 Hyperkalemia; Z66 Do not resuscitate; N18.3 Chronic kidney disease, stage 3 (moderate); I48.0 Paroxysmal atrial fibrillation; E11.22 Type 2 diabetes mellitus with diabetic chronic kidney disease; I25.10 Atherosclerotic heart disease of native coronary artery without angina pectoris; E78.5 Hyperlipidemia, unspecified; D63.1 Anemia in chronic kidney disease; K59.00 Constipation, unspecified; N61.0 Mastitis without abscess; E66.01 Morbid (severe) obesity due to excess calories; Z86.73 Personal history of transient ischemic attack (TIA), and cerebral infarction without residual deficits; I25.2 Old myocardial infarction; Z79.01 Long term (current) use of anticoagulants; Z79.82 Long term (current) use of aspirin; Z79.4 Long term (current) use of insulin; Z79.51 Long term (current) use of inhaled steroids; Z79.899 Other long term (current) drug therapy; Z98.84 Bariatric surgery status; Z95.1 Presence of aortocoronary bypass graft
CPT/HCPCS: 36415; 36430; 36600; 71045; 71046; 74022; 74176; 76642; 80048; 80053; 81001; 82550; 82553; 82607; 82728; 82746; 82803; 82962; 83036; 83540; 83550; 83735; 83880; 84100; 84132; 84165; 84484; 85025; 85027; 85045; 85610; 85730; 86850; 86870; 86900; 86901; 86902; 86920; 86922; 87040; 93005; 93010; 94640; 94660; 96374; 96375; 99291; J0610; J0696; J1644; J1815; J1940; J1956; J2405; J3490; J7030; J7512; P9016; Q4081; S0119

== ENCOUNTER 2019-03-04 11:45 | Inpatient (IN) | payer MEDICARE, MEDICAID ==
--- NOTE | 2019-03-04 12:07 | ER Document Report ---
ED General - General Stated Complaint: BLOOD TRANSFUSION Time Seen by Provider: 03/04/19 12:05 Mode of Arrival: Ambulatory Information source: Patient, Relative TRAVEL OUTSIDE OF THE [place] IN LAST 30 DAYS: No - HPI Notes: 73-year-old female with a past medical history of hypertension, COPD, CHF, 2 diabetes, CKD stage III, chronic anemia presents to the ED via [facility] for concerns of fatigue, increased sob, dull headache, decreased eating for a hemoglobin of 7.4, with concerns that fatigue has become progressively worse due to anemia, would like further evaluation of the symptoms. Patient was admitted to the hospital 02/14/19 and discharged on 03/02/19. Patient is only spent 2 days at [facility]. alf was concerned that she may need a blood transfusion due to hemoglobin of 7.4, no melena, coffee-ground emesis. Patient is followed by Dr. 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 Denies fevers, chills, palpitations, shortness of breath, dyspnea, nausea, vomiting, diarrhea, abdominal pain, hematuria,blurred vision, double vision, loss of vision, speech changes, LH, wheezing, ST, URI, neck pain, bowel or bladder dysfunction, saddle anesthesia, numbness or tingling in bilateral upper or lower extremities equally, muscle paralysis, weakness in bilateral upper or lower extremities equally or rash. - Related Data Allergies/Adverse Reactions: amoxicillin trihydrate [From Augmentin] Allergy (Severe, Verified 01/06/19 14:12) stomach cramps, n and v, rash butalbital [From Fiorinal] Allergy (Unknown, Verified 01/06/19 14:12) rash metformin HCl [From Glucophage] Allergy (Unknown, Verified 01/06/19 14:12) rash Potassium Clavulanate * [From Augmentin] Adverse Reaction (Unknown, Verified 01/06/19 14:12) nausea, vomit, epig pain Past Medical History - General Information source: Patient, Relative - Social History Smoking Status: Unknown if Ever Smoked Family History: CAD, COPD, DM, Hypertension, Malignancy, Other - Kidney disease - Past Medical History Cardiac Medical History: Reports: Hx Congestive Heart Failure, Hx Coronary Artery Disease - BYPASS 2001, Hx Heart Attack, Hx Hypercholesterolemia, Hx Hy pertension Denies: Hx Atrial Fibrillation, Hx DVT, Hx Pulmonary Embolism Pulmonary Medical History: Reports: Hx Asthma, Hx Bronchitis, Hx COPD, Hx Pneumonia, Hx Respiratory Failure, Hx Sleep Apnea - no cpap insurance does not cover Denies: Hx Tuberculosis Neurological Medical History: Reports: Hx Cerebrovascular Accident - X4. Denies: Hx Seizures Endocrine Medical History: Reports: Hx Diabetes Mellitus Type 2 - DX [place] 1994. Denies: Hx Diabetes Mellitus Type 1, Hx Hyperthyroidism, Hx Hypothyroidism Renal/ Medical History: Reports: Hx End Stage Renal Disease, Hx Kidney Stones. Denies: Hx Peritoneal Dialysis GI Medical History: Reports: Hx Ulcer. Denies: Hx Cirrhosis, Hx Gastroesophageal Reflux Disease, Hx Hepatitis, Hx Pancreatitis Musculoskeletal Medical History: Reports Hx Arthritis, Denies Hx Gout, Denies Hx Multiple Sclerosis Skin Medical History: Denies Hx Eczema, Denies Hx Psoriasis Psychiatric Medical History: Reports: Hx Depression Denies: Hx Bipolar Disorder, Hx Schizophrenia Infectious Medical History: Denies: Hx Hepatitis Past Surgical History: Reports: Hx Cardiac Catheterization, Hx Section, Hx Cholecystectomy, Hx Coronary Stent, Hx Gastric Bypass Surgery - 2001, Hx Gynecologic Surgery, Hx Hysterectomy, Hx Open Heart Surgery - 2001 TRIPLE BYPASS, Hx Rectal Surgery, Hx Tubal Ligation - Immunizations Hx Diphtheria, Pertussis, Tetanus Vaccination: No Hx Pneumococcal Vaccination: 11/11/14 Review of Systems - Review of Systems Constitutional: See HPI EENT: No symptoms reported Cardiovascular: See HPI Respiratory: No symptoms reported Gastrointestinal: No symptoms reported Genitourinary: No symptoms reported Female Genitourinary: No symptoms reported Musculoskeletal: No symptoms reported Skin: No symptoms reported Hematologic/Lymphatic: No symptoms reported Neurological/Psychological: Weakness Physical Exam - Vital signs Vitals: Resp BP Pulse Ox 17 115/50 L 97 03/04/19 13:20 03/04/19 13:20 03/04/19 13:20 - Notes Notes: PHYSICAL EXAMINATION: GENERAL: chronically-ill appearing, and in no acute distress. HEAD: Atraumatic, normocephalic. EYES: Pupils equal round and reactive to light, extraocular movements intact, conjunctiva are normal. ENT: Nares patent, oropharynx clear without exudates. Moist mucous membranes. NECK: Normal range of motion, supple without lymphadenopathy LUNGS: Breath sounds clear to auscultation bilaterally and equal. No wheezes rales or rhonchi. HEART: Regular rate and rhythm without murmurs ABDOMEN: Soft, nontender, nondistended abdomen. No guarding, no rebound. No masses appreciated. Female : deferred Musculoskeletal: Normal range of motion, no pitting or edema. No cyanosis. NEUROLOGICAL: Cranial nerves grossly intact. Normal speech, normal gait. Normal sensory, motor exams PSYCH: Normal mood, normal affect. SKIN: Warm, Dry, normal turgor, no rashes or lesions noted. Course - Re-evaluation Re-evalutation: 03/04/19 17:16 33-year-old female with copd, htn, PNA afebrile slightly hypertensive and in no distress for evaluation of fatigue, weakness, slight shortness of breath after being discharged from 2 days ago for CHF acute on renal inju ry, hyperkalemia and and was placed in [facility], hypertension was sent by [facility] today for these concerns, questionable whether patient needed a blood transfusion. hcg 7.5, hct 22.6.patient CBC shows chronic stable anemia, no leukocytosis, normal coags, EKG non-STEMI, first troponin negative. CMP does show a creatinine of 1.89 which is up from her recent discharge, potassium is 5.9 which is elevated, patent patient was discharged on 03/02/19 her potassium was one 5.1, patient's BNP is 3035. cxr negative for vascular congestion. Calcium gluconate given for hyperkalemia, 40 mg IV given for CHF. Will repeat troponin, waiting on urinalysis considering patients recent hospitalization for CHF, hyperkalemia acute renal injury, anemia 2 days ago, with patient feeling fatigued shortness of breath consider with today presenting with hyperkalemia, laceration of CHF, anemia, consulted with Dr. Wilbur Sweeney, hospitalist,thaddeus to admit patient on telemetry for further evaluation. Patient was agreeable with this plan of care and agree with plan of care. Patient verbalized understanding of this plan of care and was comfortable with being admitted to medical service. - Vital Signs Vital signs: Temp Pulse Resp BP Pulse Ox 16 110/51 L 98 03/04/19 15:01 03/04/19 15:01 03/04/19 15:01 - Laboratory Result Diagrams: 03/04/19 14:00 03/04/19 14:00 Laboratory results interpreted by me: 03/04/19 03/04/19 03/04/19 14:00 14:00 14:00 RBC 2.44 L Hgb 7.5 L Hct 22.6 L RDW 16.1 H Plt Count 116 L Eosinophils % 6.4 H Sodium 132.5 L Potassium 5.9 H Anion Gap 4 L BUN 42 H Creatinine 1.89 H Est GFR ( Amer) 32 L Est GFR (Non-Af Amer) 26 L Glucose 222 H Calcium 8.3 L NT-Pro-B Natriuret Pep 3270 H Total Protein 5.2 L Albumin 2.7 L - EKG Interpretation by De EKG shows normal: Sinus rhythm Rate: Normal Rhythm: NSR Discharge - Discharge Clinical Impression: Hyperkalemia, CHF (congestive heart failure), COPD (chronic obstructive pulmonary disease), CKD (chronic kidney disease), stage III, Anemia Condition: Stable Disposition: ADMITTED INPATIENT Admitting Provider: Zahra (Hospitalist) Unit Admitted: Telemetry
--- NOTE | 2019-03-04 13:01 | RADIOLOGY REPORT (SQ) ---
EXAM DESCRIPTION: CHEST SINGLE VIEW COMPLETED DATE/TIME: 03/04/2019 12:50 pm REASON FOR STUDY: fatigue COMPARISON: 02/24/2019 EXAM PARAMETERS: NUMBER OF VIEWS: One view. TECHNIQUE: Single frontal radiographic view of the chest acquired. RADIATION DOSE: NA LIMITATIONS: None. FINDINGS: LUNGS AND PLEURA: Resolution of the faint airspace disease left lower lung zone on the pre vious chest x-ray. MEDIASTINUM AND HILAR STRUCTURES: No masses. Contour normal. HEART AND VASCULAR STRUCTURES: Heart normal in size. Normal vasculature. BONES: No acute findings. HARDWARE: None in the chest. OTHER: No other significant finding. IMPRESSION: Lungs essentially clear. TECHNICAL DOCUMENTATION: JOB ID: [id number] [employer]- All Rights Reserved Reading location - IP/workstation name: [email or web address]
[2019-03-04 14:30] LABS: ABSOLUTE EOSINOPHILS # (AUTO) 0.3 10^3/uL (0.0-0.6); ABSOLUTE LYMPHOCYTES (AUTO) 0.8 10^3/uL (0.5-4.7); ABSOLUTE MONOCYTES (AUTO) 0.3 10^3/uL (0.1-1.4); ABSOLUTE NEUT (AUTO) 3.2 10^3/uL (1.7-8.2); BASOPHILS % (AUTO) 0.9 % (0-2); EOSINOPHILS % (AUTO) 6.4 % (0-6); HEMATOCRIT 22.6 % (36.0-47.0); MEAN CORPUSCULAR HEMOGLOBIN 30.7 pg (27.0-33.4); MEAN CORPUSCULAR HGB CONC 33.1 g/dL (32.0-36.0); MEAN CORPUSCULAR VOLUME 93 fl (80-97); MONOCYTES % (AUTO) 7.1 % (3-13); PLATELET COUNT 116 10^3/uL (150-450); RED BLOOD COUNT 2.44 10^6/uL (3.72-5.28); RED CELL DISTRIBUTION WIDTH 16.1 % (11.5-14.0); SEGMENTED NEUTROPHILS % (AUTO) 68.6 % (42-78); TOTAL CELLS COUNTED % (AUTO) 100 %; WHITE BLOOD COUNT 4.6 10^3/uL (4.0-10.5)
[2019-03-04 14:32] LABS: HEMOGLOBIN 7.5 g/dL (12.0-15.5)
[2019-03-04 14:33] LABS: INTERNATIONAL RATION (INR) 1.07; PROTHROMBIN TIME 14.4 SEC (11.4-15.4)
[2019-03-04 14:34] LABS: PARTIAL THROMBOPLASTIN TIME 28.6 SEC (23.5-35.8)
[2019-03-04 14:54] LABS: ALANINE AMINOTRANSFERASE 25 U/L (9-52); ALBUMIN 2.7 g/dL (3.5-5.0); ALKALINE PHOSPHATASE 79 U/L (38-126); ASPARTATE AMINO TRANSFERASE 22 U/L (14-36); BILIRUBIN,DIRECT 0.3 mg/dL (0.0-0.4); BILIRUBIN,TOTAL 0.5 mg/dL (0.2-1.3); BLOOD UREA NITROGEN 42 mg/dL (7-20); CALCIUM 8.3 mg/dL (8.4-10.2); GLUCOSE 222 mg/dL (75-110); POTASSIUM 5.9 mmol/L (3.6-5.0); TOTAL PROTEIN 5.2 g/dL (6.3-8.2)
[2019-03-04 15:02] LABS: CARBON DIOXIDE 29 mmol/L (22-30); CHLORIDE 100 mmol/L (98-107); SODIUM 132.5 mmol/L (137-145)
[2019-03-04 15:05] LABS: ANION GAP 4 (5-19)
[2019-03-04 15:07] LABS: TROPONIN I 0.084 ng/mL
[2019-03-04] MEDS ORDERED: ACETAMINOPHEN 325 MG TABLET PO ONE (15:39)
[2019-03-04] MEDS ORDERED: CALCIUM GLUCONATE 1000 MG/10 ML INJ IV ONE (15:39)
[2019-03-04 16:51] LABS: APPEARANCE,URINE CLOUDY; BILIRUBIN,URINE NEGATIVE (NEGATIVE); COLOR,URINE YELLOW; GLUCOSE, URINE NEGATIVE (NEGATIVE); KETONES,URINE NEGATIVE (NEGATIVE); LEUKOCYTE ESTERASE,URINE LARGE (NEGATIVE); NITRITE,URINE NEGATIVE (NEGATIVE); PROTEIN,URINE NEGATIVE (NEGATIVE); URINE SPECIFIC GRAVITY 1.013; UROBILINOGEN,URINE NEGATIVE mg/dL (<2.0)
[2019-03-04] MEDS ORDERED: FUROSEMIDE INJ/PF 40 MG/4 ML SDV IV ONE ×2 (17:13→19:45)
[2019-03-04] MEDS ORDERED: ASPIRIN 81 MG TABLET, CHEWABLE PO ONE (17:31)
[2019-03-04] MEDS ORDERED: HYDROCODONE/ACETAMINOPHEN 5-325 MG TABLET PO ONE ×2 (17:36→19:45)
[2019-03-04] MEDS ORDERED: NORMAL SALINE 250 ML IV PRN ×2 (18:06)
[2019-03-04] MEDS ORDERED: MAG HYDROX/AL HYDROX/SIMETH SUSP 30 ML UDCUP PO PRN (18:27)
[2019-03-04] MEDS ORDERED: ACETAMINOPHEN 325 MG TABLET PO PRN (18:27)
[2019-03-04] MEDS ORDERED: MAGNESIUM HYDROXIDE SUSP 30 ML UDCUP PO PRN (18:27)
--- NOTE | 2019-03-04 18:27 | PDOC H&P ---
History of Present Illness Admission Date/PCP: 03/04/19 15:59 DANI PANDA DO History of Present Illness: PRECIOUS BURCH is a 73 year old female past medical history of CKD stage IV nonoliguric not HD, anemia of CKD, hyperkalemia, morbid obesity, retention, CAD status post CABG in 2001 followed by 1 a stent placement in 2002, Beatties, hypertension, was discharged to a shelter 3 days ago from [facility]. Patient comes back to ED complaining of generalized fatigue, nausea, subjective fever, nonproductive cough, chronic persistent left lower quadrant abdominal pain radiating to groin, sharp and transient sharp and twisting in nature, chronic constipation chronic back pain. In ED she was found to have hemoglobin of 7.5 down from a baseline of 8-9, potassium of 5.9 creatinine of 1.89 down from a baseline of 2-3, troponin 0 0.084, BNP of 3270 down from 3450, UA positive for large leukocyte esterase unchanged from previous admission, chest x-ray negative for any acute abnormalities. She was given 1 g of calcium gluconate, IV Lasix hospitalist will consulted for admission. Past Medical History Cardiac Medical History: Reports: Congestive Heart Failure, Coronary Artery Disease - BYPASS 2001, Myocardial Infarction, Hyperlipidema, Hypertension Denies: Atrial Fibrillation, DVT, Pulmonary Embolism Pulmonary Medical History: Reports: Asthma, Bronchitis, Chronic Obstructive Pulmonary Disease (COPD), Pneumonia, Respiratory Failure, Sleep Apnea - no cpap insurance does not cover Denies: Tuberculosis Neurological Medical History: Denies: Seizures Endocrine Medical History: Reports: Diabetes Mellitus Type 2 - DX [place] 1994 Denies: Diabetes Mellitus Type 1, Hyperthyroidism, Hypothyroidism Renal/ Medical History: Reports: End Stage Renal Disease GI Medical History: Denies: Cirrhosis, Gastroesophageal Reflux Disease, Hepatitis Musculoskeltal Medical History: Reports: Arthritis Denies: Gout Skin Medical History: Denies: Eczema, Psoriasis Psychiatric Medical History: Reports: Depression Denies: Bipolar Disorder Hematology: Reports: Anemia, Bleeding Tendencies Denies: Hemophilia, Sickle Cell Disease Past Surgical History Past Surgical History: Reports: Cardiac Catheterization, Section, Cholecystectomy, Coronary Stent, Gastric Bypass Surgery - 2001, Hysterectomy, Tubal Ligation Denies: Amputation Social History Smoking Status: Unknown if Ever Smoked Frequency of Alcohol Use: None Hx Recreational Drug Use: No Drugs: None Hx Prescription Drug Abuse: No Family History Family History: CAD, COPD, DM, Hypertension, Malignancy, Other - Kidney disease Parental Family History Reviewed: Yes Children Family History Reviewed: Yes Sibling(s) Family History Reviewed.: Yes Medication/Allergy Allergies/Adverse Reactions: amoxicillin trihydrate [From Augmentin] Allergy (Severe, Verified 01/06/19 14:12) stomach cramps, n and v, rash butalbital [From Fiorinal] Allergy (Unknown, Verified 01/06/19 14:12) rash metformin HCl [From Glucophage] Allergy (Unknown, Verified 01/06/19 14:12) rash Potassium Clavulanate * [From Augmentin] Adverse Reaction (Unknown, Verified 01/06/19 14:12) nausea, vomit, epig pain Review of Systems Review of Systems: as per hpi Physical Exam Vital Signs: Temp Pulse Resp BP Pulse Ox 19 112/47 L 94 03/04/19 17:01 03/04/19 17:01 03/04/19 17:01 Intake & Output 03/03/19 03/04/19 03/05/19 06:59 06:59 06:59 Weight 86.636 kg General appearance: PRESENT: no acute distress, mild distress, obese, well- developed, well-nourished Head exam: PRESENT: atraumatic, normocephalic Respiratory exam: PRESENT: clear to auscultation cheli. ABSENT: rales, rhonchi, wheezes Cardiovascular exam: PRESENT: RRR. ABSENT: diastolic murmur, rubs, systolic murmur Pulses: PRESENT: normal dorsalis pedis pul GI/Abdominal exam: PRESENT: guarding - Left lower quadrant., normal bowel sounds, soft, tenderness. ABSENT: distended, mass, organolmegaly, rebound Extremities exam: PRESENT: full ROM, +1 edema. ABSENT: calf tenderness, clubbing, pedal edema Musculoskeletal exam: PRESENT: tenderness - TTP para spinal lumbar region. Neurological exam: PRESENT: alert, awake, oriented to person, oriented to place, oriented to time, oriented to situation, CN II-XII grossly intact. ABSENT: motor sensory deficit Results Laboratory Results: 03/04/19 14:00 03/04/19 14:00 03/04/19 03/04/19 03/04/19 14:00 14:00 14:00 WBC 4.6 RBC 2.44 L Hgb 7.5 L Hct 22.6 L MCV 93 MCH 30.7 MCHC 33.1 RDW 16.1 H Plt Count 116 L Seg Neutrophils % 68.6 Lymphocytes % 17.0 Monocytes % 7.1 Eosinophils % 6.4 H Basophils % 0.9 Absolute Neutrophils 3.2 Absolute Lymphocytes 0.8 Absolute Monocytes 0.3 Absolute Eosinophils 0.3 Absolute Basophils 0.0 Sodium 132.5 L Potassium 5.9 H Chloride 100 Carbon Dioxide 29 Anion Gap 4 L BUN 42 H Creatinine 1.89 H Est GFR ( Amer) 32 L Est GFR (Non-Af Amer) 26 L Glucose 222 H Calcium 8.3 L Total Bilirubin 0.5 AST 22 ALT 25 Alkaline Phosphatase 79 Total Protein 5.2 L Albumin 2.7 L Urine Color Urine Appearance Urine pH Ur Specific Barbeau Urine Protein Urine Glucose (UA) Urine Ketones Urine Blood Urine Nitrite Ur Leukocyte Esterase Urine WBC (Auto) Urine RBC (Auto) Blood Type Cancelled Antibody Screen Cancelled 03/04/19 16:20 WBC RBC Hgb Hct MCV MCH MCHC RDW Plt Count Seg Neutrophils % Lymphocytes % Monocytes % Eosinophils % Basophils % Absolute Neutrophils Absolute Lymphocytes Absolute Monocytes Absolute Eosinophils Absolute Basophils Sodium Potassium Chloride Carbon Dioxide Anion Gap BUN Creatinine Est GFR ( Amer) Est GFR (Non-Af Amer) Glucose Calcium Total Bilirubin AST ALT Alkaline Phosphatase Total Protein Albumin Urine Color YELLOW Urine Appearance CLOUDY Urine pH 5.0 Ur Specific [place] 1.013 Urine Protein NEGATIVE Urine Glucose (UA) NEGATIVE Urine Ketones NEGATIVE Urine Blood SMALL H Urine Nitrite NEGATIVE Ur Leukocyte Esterase LARGE H Urine WBC (Auto) >182 Urine RBC (Auto) 7 Blood Type Antibody Screen 03/04/19 14:00 Troponin I 0.084 NT-Pro-B Natriuret Pep 3270 H Impressions: Chest X-Ray 03/04/19 12:09 IMPRESSION: Lungs essentially clear. Assessment and Plan - Diagnosis (1) Hyperkalemia Is this a current diagnosis for this admission?: Yes Plan: Likely due to worsening CKD. Low potassium diet. Hyperkalemia protocol. (2) Fatigue Is this a current diagnosis for this admission?: Yes Plan: Likely due to uremic syndrome caused by worsening CKD. Correct electrolytes as needed. CMP tomorrow. Nephrology consult. (3) Acute on chronic renal failure Qualifiers: Is this a current diagnosis for this admission?: Yes Plan: Nonoliguric. Monitor electrolytes. Monitor volume status. Neurology consult. (4) Diabetes mellitus, type II, insulin dependent Is this a current diagnosis for this admission?: No Plan: Diabetic diet. Long-acting insulin, pre-meal insulin, sliding scale insulin, adjust meds as needed. (5) Urinary tract infection Is this a current diagnosis for this admission?: Yes Plan: Persistent chronic. Likely due to E. coli. History of UTI due to E. coli, Proteus, group B strep. Will start on levofloxacin. Urine culture. (6) Right sided weakness Is this a current diagnosis for this admission?: No Plan: Due to remote CVA in 1977. Supportive measures. Fall precautions. (7) Morbid obesity with BMI of 45.0-49.9, adult Is this a current diagnosis for this admission?: No Plan: Diet and lifestyle modification. (8) Hypertension Is this a current diagnosis for this admission?: No (9) CHF (congestive heart failure) Is this a current diagnosis for this admission?: No Plan: Not acutely exacerbated based on physical examination. Cardiac diet, food restriction Start home meds. Adjust meds as needed. (10) Elevated troponin Is this a current diagnosis for this admission?: Yes Plan: In the setting of CKD and CHF exacerbation. Denies any active chest pain. Follow troponin if elevated will call cardiology.
--- NOTE | 2019-03-04 18:30 | EKG REPORT ---
SEVERITY:- ABNORMAL ECG - SINUS RHYTHM NONSPECIFIC INTRAVENTRICULAR CONDUCTION DELAY LOW VOLTAGE IN FRONTAL LEADS BORDERLINE R WAVE PROGRESSION, ANTERIOR LEADS : Confirmed by: Pelon Ruano MD 04-Mar-2019 18:29:25
[2019-03-04] MEDS ORDERED: DEXTROSE 50%-WATER 25 GM/50 ML DISP.SYRIN IV PRN ×2 (18:34)
[2019-03-04] MEDS ORDERED: GLUCAGON,HUMAN RECOMB 1 MG INJ IM PRN (18:34)
[2019-03-04] MEDS ORDERED: DEXTROSE 40% GEL 15 GM TUBE PO PRN ×2 (18:34)
[2019-03-04] MEDS ORDERED: SODIUM POLYSTYRENE SULFONATE 15 GM/60 ML PO SCH (18:45)
[2019-03-04] MEDS ORDERED: ALBUTEROL SULFATE 0.042% NEB (1.25 MG/3 ML) AMPUL NEB ONE (19:00)
[2019-03-04] MEDS ORDERED: PATIROMER 8.4 GM SUSP PACKET PO ONE (19:30)
[2019-03-04] MEDS ORDERED: ASPIRIN 81 MG TABLET, CHEWABLE ONE (19:39)
[2019-03-04] MEDS ORDERED: LEVOFLOXACIN 500 MG/D5W RTU 500 MG/100 ML RTUPB IV SCH (20:00)
[2019-03-04] MEDS: IPRATROPIUM/ALBUTEROL 0.5-2.5 MG/3 ML AMPUL NEB SCH (20:21)
[2019-03-04] MEDS: HEPARIN SOD (PORCINE) 5,000 UNIT/ML 1 ML SYRINGE SUBCUT SCH (21:18)
[2019-03-04] MEDS: CLOPIDOGREL BISULFATE 75 MG TABLET PO SCH (21:21)
[2019-03-04] MEDS: FAMOTIDINE 20 MG TABLET PO SCH (21:22)
[2019-03-04] MEDS: INSULIN LISPRO 100 UNIT/ML 3 ML VIAL SUBCUT SCH (21:26)
[2019-03-05] MEDS: OXYCODONE-ACETAMINOPHEN 5-325 MG TABLET PO PRN ×2 (01:09→18:57)
[2019-03-05] MEDS: ONDANSETRON 4 MG TAB.RAPDIS PO PRN ×3 (02:33→18:57)
[2019-03-05] MEDS: IPRATROPIUM/ALBUTEROL 0.5-2.5 MG/3 ML AMPUL NEB SCH ×4 (02:34→20:05)
[2019-03-05 04:53] LABS: ABSOLUTE EOSINOPHILS # (AUTO) 0.3 10^3/uL (0.0-0.6); ABSOLUTE LYMPHOCYTES (AUTO) 1.1 10^3/uL (0.5-4.7); ABSOLUTE MONOCYTES (AUTO) 0.5 10^3/uL (0.1-1.4); ABSOLUTE NEUT (AUTO) 3.2 10^3/uL (1.7-8.2); BASOPHILS % (AUTO) 0.8 % (0-2); EOSINOPHILS % (AUTO) 5.9 % (0-6); HEMATOCRIT 27.5 % (36.0-47.0); HEMOGLOBIN 9.3 g/dL (12.0-15.5); MEAN CORPUSCULAR HEMOGLOBIN 30.8 pg (27.0-33.4); MEAN CORPUSCULAR VOLUME 91 fl (80-97); MONOCYTES % (AUTO) 8.8 % (3-13); PLATELET COUNT 108 10^3/uL (150-450); RED BLOOD COUNT 3.03 10^6/uL (3.72-5.28); RED CELL DISTRIBUTION WIDTH 16.6 % (11.5-14.0); SEGMENTED NEUTROPHILS % (AUTO) 62.5 % (42-78); TOTAL CELLS COUNTED % (AUTO) 100 %; WHITE BLOOD COUNT 5.1 10^3/uL (4.0-10.5)
[2019-03-05 05:11] LABS: BLOOD UREA NITROGEN 48 mg/dL (7-20); CALCIUM 8.4 mg/dL (8.4-10.2); GLUCOSE 193 mg/dL (75-110); POTASSIUM 5.6 mmol/L (3.6-5.0); SODIUM 131.8 mmol/L (137-145)
[2019-03-05 05:17] LABS: ANION GAP 6 (5-19); CARBON DIOXIDE 26 mmol/L (22-30); CHLORIDE 100 mmol/L (98-107)
[2019-03-05] MEDS: HEPARIN SOD (PORCINE) 5,000 UNIT/ML 1 ML SYRINGE SUBCUT SCH ×3 (05:22→21:12)
[2019-03-05] MEDS: INSULIN LISPRO 100 UNIT/ML 3 ML VIAL SUBCUT SCH ×4 (07:55→21:18)
[2019-03-05] MEDS ORDERED: PATIROMER 8.4 GM SUSP PACKET PO SCH (10:00)
[2019-03-05] MEDS: METOPROLOL SUCCINATE 25 MG TAB.SR.24H PO SCH (10:02)
[2019-03-05] MEDS: DOCUSATE SODIUM 100 MG CAPSULE PO SCH (10:02)
[2019-03-05] MEDS: ASPIRIN 81 MG TABLET, CHEWABLE PO SCH (10:02)
[2019-03-05] MEDS: FAMOTIDINE 20 MG TABLET PO SCH ×2 (10:02→21:18)
[2019-03-05] MEDS: CLOPIDOGREL BISULFATE 75 MG TABLET PO SCH (10:02)
[2019-03-05] MEDS: PROMETHAZINE HCL INJ 25 MG/1 ML VIAL IV PRN (12:36)
[2019-03-05] MEDS ORDERED: OXYCODONE-ACETAMINOPHEN 5-325 MG TABLET PO PRN (13:42)
[2019-03-05] MEDS ORDERED: CLOPIDOGREL BISULFATE 75 MG TABLET PO SCH (13:45)
[2019-03-05] MEDS ORDERED: DEXTROSE 40% GEL 15 GM TUBE PO PRN ×2 (13:51)
[2019-03-05] MEDS ORDERED: GLUCAGON,HUMAN RECOMB 1 MG INJ IM PRN (13:51)
[2019-03-05] MEDS ORDERED: DEXTROSE 50%-WATER 25 GM/50 ML DISP.SYRIN IV PRN ×2 (13:51)
[2019-03-05] MEDS ORDERED: LACTULOSE SYRUP 20 GM/30 ML UDCUP PO ONE (14:15)
[2019-03-05] MEDS ORDERED: CALCIUM GLUCONATE 1000 MG/10 ML INJ IV ONE (14:15)
[2019-03-05] MEDS: ATORVASTATIN CALCIUM 40 MG TABLET PO SCH (17:08)
[2019-03-05] MEDS: FUROSEMIDE INJ/PF 20 MG/2 ML SDV IV SCH (17:08)
--- NOTE | 2019-03-05 17:09 | PDOC PROGRESS REPORT ---
Subjective Progress Note for:: 03/05/19 Subjective:: PRECIOUS BURCH is a 73 year old female past medical history of CKD stage IV nonoliguric not HD, anemia of CKD, hyperkalemia, morbid obesity, retention, CAD status post CABG in 2001 followed by 1 a stent placement in 2002, Beatties, hypertension, [facility]. Patient comes back to ED complaining of generalized fatigue, nausea, subjective fever, nonproductive cough, chronic persistent left lower quadrant abdominal pain radiating to groin, sharp and transient sharp and twisting in nature, chronic constipation chronic back pain. In ED she was found to have hemoglobin of 7.5 down from a baseline of 8-9, potas sium of 5.9 creatinine of 1.89 down from a baseline of 2-3, troponin 0 0.084, BNP of 3270 down from 3450, UA positive for large leukocyte esterase unchanged from previous admission, chest x-ray negative for any acute abnormalities. She was given 1 g of calcium gluconate, IV Lasix hospitalist will consulted for admission. 03/05/2019. No acute events overnight. Still complaining of nausea, no vom iting, generalized fatigue, persistent left lower quadrant abdominal pain and chronic back pain with chronic constipation. Is any chest pain, shortness of breath, diarrhea. 03/05/2019. WBC 5.1. hCG 9.3 status post 2 unit transfusion. Sodium 131.8. Potassium 5.6. Creatinine 1.98 up from 1.89. Blood cultures pending. Urine culture positive for gram-positive cocci in chains. Pending sensitivity. Reason For Visit: HYPERKALEMIA,FATIGUE Physical Exam Vital Signs: Temp Pulse Resp BP Pulse Ox 98.3 F 63 16 134/34 H 96 03/05/19 12:24 03/05/19 14:00 03/05/19 13:39 03/05/19 12:24 03/05/19 16:37 Intake & Output 03/04/19 03/05/19 03/06/19 06:59 06:59 06:59 Intake Total 800 236 Output Total 530 200 Balance 270 36 Weight 86.636 kg General appearance: PRESENT: mild distress, morbidly obese Head exam: PRESENT: atraumatic, normocephalic Neck exam: ABSENT: carotid bruit, JVD, lymphadenopathy, thyromegaly Respiratory exam: PRESENT: clear to auscultation cheli. ABSENT: rales, rhonchi, wheezes Cardiovascular exam: PRESENT: RRR. ABSENT: diastolic murmur, rubs, systolic murmur Extremities exam: PRESENT: full ROM. ABSENT: calf tenderness, clubbing, pedal edema Neurological exam: PRESENT: alert, awake, oriented to person, oriented to place, oriented to time, oriented to situation, CN II-XII grossly intact. ABSENT: motor sensory deficit Results Laboratory Results: 03/05/19 04:35 03/05/19 04:35 03/04/19 03/04/19 03/04/19 14:00 14:00 21:10 WBC RBC Hgb Hct MCV MCH MCHC RDW Plt Count Seg Neutrophils % Lymphocytes % Monocytes % Eosinophils % Basophils % Absolute Neutrophils Absolute Lymphocytes Absolute Monocytes Absolute Eosinophils Absolute Basophils Sodium Potassium Chloride Carbon Dioxide Anion Gap BUN Creatinine Est GFR ( Amer) Est GFR (Non-Af Amer) Glucose Calcium Stool Occult Blood POSITIVE Blood Type Cancelled O POSITIVE Antibody Screen Cancelled POSITIVE 03/05/19 03/05/19 04:35 04:35 WBC 5.1 RBC 3.03 L Hgb 9.3 L Hct 27.5 L MCV 91 MCH 30.8 MCHC 34.0 RDW 16.6 H Plt Count 108 L Seg Neutrophils % 62.5 Lymphocytes % 22.0 Monocytes % 8.8 Eosinophils % 5.9 Basophils % 0.8 Absolute Neutrophils 3.2 Absolute Lymphocytes 1.1 Absolute Monocytes 0.5 Absolute Eosinophils 0.3 Absolute Basophils 0.0 Sodium 131.8 L Potassium 5.6 H Chloride 100 Carbon Dioxide 26 Anion Gap 6 BUN 48 H Creatinine 1.98 H Est GFR ( Amer) 30 L Est GFR (Non-Af Amer) 25 L Glucose 193 H Calcium 8.4 Stool Occult Blood Blood Type Antibody Screen 03/04/19 03/04/19 14:00 18:05 Troponin I 0.084 0.100 NT-Pro-B Natriuret Pep 3270 H Impressions: Chest X-Ray 03/04/19 12:09 IMPRESSION: Lungs essentially clear. Assessment and Plan - Diagnosis (1) Hyperkalemia Is this a current diagnosis for this admission?: Yes Plan: Likely due to worsening CKD. Low potassium diet. Hyperkalemia protocol. 03/05/2019. WBC 5.1. Hbg 9.3 status post 2 unit transfusion. Sodium 131.8. Potassium 5.6. Creatinine 1.98 up from 1.89. Blood cultures pending. Urine culture positive for gram-positive cocci in chains. Pending sensitivity. (2) Fatigue Is this a current diagnosis for this admission?: Yes Plan: Likely due to uremic syndrome caused by worsening CKD and UTI. Correct electrolytes as needed. CMP tomorrow. Nephrology consulted. Follow recommendations. (3) Acute on chronic renal failure Qualifiers: Is this a current diagnosis for this admission?: Yes Plan: Nonoliguric. Monitor electrolytes. Monitor volume status. Neurology consult. (4) Diabetes mellitus, type II, insulin dependent Is this a current diagnosis for this admission?: No Plan: Diabetic diet. Long-acting insulin, pre-meal insulin, sliding scale insulin, adjust meds as needed. (5) Urinary tract infection Is this a current diagnosis for this admission?: Yes Plan: Persistent chronic. Likely due to E. coli. History of UTI due to E. coli, Proteus, group B strep. Day 25 Levofloxacin. 03/05/2019. WBC 5.1. Hbg 9.3 status post 2 unit transfusion. Sodium 131.8. Potassium 5.6. Creatinine 1.98 up from 1.89. Blood cultures pending. Urine culture positive for gram-positive cocci in chains. Pending sensitivity. (6) Right sided weakness Is this a current diagnosis for this admission?: No Plan: Due to remote CVA in 1977. Supportive measures. Fall precautions. (7) Morbid obesity with BMI of 45.0-49.9, adult Is this a current diagnosis for this admission?: No Plan: Diet and lifestyle modification. (8) Hypertension Is this a current diagnosis for this admission?: No Plan: Controlled. SBP 102-134. Continue amlodipine 10 p.o. daily, metoprolol 25 mg p.o. daily. isosorbide mononitrate 60 mg p.o. daily. Adjust meds as needed. Outpatient PCP follow-up. (9) CHF (congestive heart failure) Qualifiers: Heart failure type: diastolic Is this a current diagnosis for this admission?: No Plan: Diastolic. BNP on admission 3270. Up from 3450 on 02/28/2019. 2D echo from 01/29/2019. LVEF 65%. 2/4 mild to moderate diastolic dysfunction.Not acutely exacerbated based on physical examination. Cardiac diet, fluid restriction. Metoprolol 25 mg p.o. daily, furosemide 20 mg IV twice daily added by volume status and vitals. (10) Elevated troponin Is this a current diagnosis for this admission?: Yes Plan: Likely due to demand ischemia, in the setting of CKD and CHF exacerbation severe anemia. Denies any active chest pain. Follow troponin if elevated will call cardiology. (11) Anemia Qualifiers: Anemia type: due to chronic kidney disease Chronic kidney disease stage: stage 3 (moderate) Qualified Code(s): N18.3 - Chronic kidney disease, stage 3 (moderate); D63.1 - Anemia in chronic kidney disease Is this a current diagnosis for this admission?: No Plan: Hemoglobin 7.5 on admission. Status post 2 PRBC transfusion. Most likely due to CKD combined with iron deficiency anemia due to GI losses. Stool occult blood test positive. She is DNR does not want any intervention at this point. Procrit, supplemental iron. Part of transfusion if less than 7, actively bleeding or symptomatic. H/H tomorrow. (12) Hx of coronary artery disease Is this a current diagnosis for this admission?: Yes Plan: History of CABG in 2001. PCI x1 stent in 2002. Continue aspirin, Plavix, beta-blockers, statins.
[2019-03-05] MEDS ORDERED: LEVOFLOXACIN 250 MG/D5W RTU 250 MG/50 ML RTUPB IV SCH (18:00)
[2019-03-05] MEDS ORDERED: FUROSEMIDE 20 MG TABLET PO SCH (18:00)
[2019-03-05] MEDS ORDERED: INSULIN GLARGINE,HUM.REC.ANLOG 1,000 UNIT/10 ML VIAL (PYX) SUBCUT ONE (21:16)
[2019-03-05] MEDS: INSULIN GLARGINE,HUM.REC.ANLOG 1,000 UNIT/10 ML VIAL SUBCUT SCH (21:18)
[2019-03-06] MEDS: IPRATROPIUM/ALBUTEROL 0.5-2.5 MG/3 ML AMPUL NEB SCH ×4 (01:43→19:48)
[2019-03-06] MEDS: OXYCODONE-ACETAMINOPHEN 5-325 MG TABLET PO PRN ×3 (02:09→21:12)
[2019-03-06 04:29] LABS: ABSOLUTE EOSINOPHILS # (AUTO) 0.3 10^3/uL (0.0-0.6); ABSOLUTE MONOCYTES (AUTO) 0.4 10^3/uL (0.1-1.4); ABSOLUTE NEUT (AUTO) 3.1 10^3/uL (1.7-8.2); BASOPHILS % (AUTO) 0.6 % (0-2); EOSINOPHILS % (AUTO) 5.9 % (0-6); HEMATOCRIT 28.8 % (36.0-47.0); HEMOGLOBIN 9.7 g/dL (12.0-15.5); LYMPHOCYTES % (AUTO) 19.8 % (13-45); MEAN CORPUSCULAR HEMOGLOBIN 30.6 pg (27.0-33.4); MEAN CORPUSCULAR HGB CONC 33.5 g/dL (32.0-36.0); MEAN CORPUSCULAR VOLUME 91 fl (80-97); MONOCYTES % (AUTO) 8.8 % (3-13); PLATELET COUNT 108 10^3/uL (150-450); RED BLOOD COUNT 3.16 10^6/uL (3.72-5.28); RED CELL DISTRIBUTION WIDTH 16.6 % (11.5-14.0); SEGMENTED NEUTROPHILS % (AUTO) 64.9 % (42-78); TOTAL CELLS COUNTED % (AUTO) 100 %; WHITE BLOOD COUNT 4.8 10^3/uL (4.0-10.5)
[2019-03-06 04:54] LABS: ALANINE AMINOTRANSFERASE 25 U/L (9-52); ALBUMIN 2.9 g/dL (3.5-5.0); ALKALINE PHOSPHATASE 81 U/L (38-126); ANION GAP 9 (5-19); ASPARTATE AMINO TRANSFERASE 26 U/L (14-36); BILIRUBIN,DIRECT 0.4 mg/dL (0.0-0.4); BILIRUBIN,TOTAL 0.5 mg/dL (0.2-1.3); BLOOD UREA NITROGEN 49 mg/dL (7-20); CALCIUM 8.7 mg/dL (8.4-10.2); CARBON DIOXIDE 27 mmol/L (22-30); CHLORIDE 100 mmol/L (98-107); GLUCOSE 154 mg/dL (75-110); POTASSIUM 5.5 mmol/L (3.6-5.0); SODIUM 136.1 mmol/L (137-145); TOTAL PROTEIN 5.6 g/dL (6.3-8.2)
[2019-03-06] MEDS: HEPARIN SOD (PORCINE) 5,000 UNIT/ML 1 ML SYRINGE SUBCUT SCH ×3 (05:14→21:03)
[2019-03-06] MEDS: FUROSEMIDE INJ/PF 20 MG/2 ML SDV IV SCH ×2 (05:22→17:22)
[2019-03-06] MEDS: INSULIN LISPRO 100 UNIT/ML 3 ML VIAL SUBCUT SCH ×4 (07:39→21:11)
[2019-03-06] MEDS: FAMOTIDINE 20 MG TABLET PO SCH ×2 (09:30→21:05)
[2019-03-06] MEDS: CLOPIDOGREL BISULFATE 75 MG TABLET PO SCH (09:30)
[2019-03-06] MEDS: METOPROLOL SUCCINATE 25 MG TAB.SR.24H PO SCH (09:30)
[2019-03-06] MEDS: ASPIRIN 81 MG TABLET, CHEWABLE PO SCH (09:30)
[2019-03-06] MEDS: EZETIMIBE 10 MG TABLET PO SCH (09:30)
[2019-03-06] MEDS: DOCUSATE SODIUM 100 MG CAPSULE PO SCH (09:30)
[2019-03-06] MEDS: ISOSORBIDE MONONITRATE 60 MG TAB.ER.24H PO SCH (09:30)
[2019-03-06] MEDS ORDERED: (PENDING PHARMACY ID) (Linaclotide [Linzess] 72 MCG) PO SCH (10:00)
[2019-03-06] MEDS ORDERED: METOPROLOL SUCCINATE 25 MG TAB.SR.24H PO SCH (10:00)
[2019-03-06] MEDS ORDERED: AMLODIPINE BESYLATE 10 MG TABLET PO SCH (10:00)
[2019-03-06] MEDS ORDERED: LEVOFLOXACIN 250 MG TABLET PO SCH (10:15)
[2019-03-06] MEDS ORDERED: LOSARTAN POTASSIUM 50 MG TABLET PO SCH (10:30)
[2019-03-06] MEDS ORDERED: METOPROLOL SUCCINATE 25 MG TAB.SR.24H PO ONE (10:45)
[2019-03-06] MEDS: LACTULOSE SYRUP 20 GM/30 ML UDCUP PO SCH (11:26)
--- NOTE | 2019-03-06 11:41 | PDOC PROGRESS REPORT ---
Subjective Progress Note for:: 03/06/19 Reason For Visit: HYPERKALEMIA,FATIGUE3 year old female past medical history of Complicated diabetes mellitus, Hypertension, CKD stage IV with base creatinine of around 2,CAD status post CABG in 2001 followed by 1 a stent placement in 2002, anemia of CKD. Was recently admitted with exacerbation of COPD/pulmonary hypertension/AK I on top of CKD stage IV with a creatinine peaking around 4+ did well to treatment and discharge to the alf for rehab. Her discharge creatinine was around 2. She was readmitted with history of weakness, nausea vomiting constipation, lower abdominal pains, progressive shortness of breath and edema. She has been diagnosed to have features of right heart failure, constipation and UTI , Anemia with Hb of 7+ and is being addressed. She is already had 2 pints of blood transfusions. Renal functions are stable but for some mild to moderate hyperkalemia. Today she overall she feels better. Constipation has been relieved and she is on antibiotics.She has been having a good response to IV diuretics and her breathing and her edema is also therefore better. Labs and medications were reviewed with the patient today. Physical Exam Vital Signs: Temp Pulse Resp BP Pulse Ox 98.4 F 60 18 148/50 H 96 03/06/19 08:18 03/06/19 08:27 03/06/19 08:27 03/06/19 08:18 03/06/19 08:27 Intake & Output 03/05/19 03/06/19 03/07/19 06:59 06:59 06:59 Intake Total 800 1301 Output Total 530 2600 Balance 270 -1299 Weight 86.636 kg General appearance: PRESENT: no acute distress Respiratory exam: PRESENT: clear to auscultation cheli, decreased breath sounds. ABSENT: crackles Cardiovascular exam: PRESENT: +S1, +S2 GI/Abdominal exam: PRESENT: normal bowel sounds, soft. ABSENT: organomegaly, tenderness Extremities exam: PRESENT: +1 edema Neurological exam: PRESENT: alert, awake, oriented to person, oriented to place Psychiatric exam: PRESENT: appropriate affect Skin exam: ABSENT: cyanosis, erythema, mottled, rash Results Laboratory Results: 03/06/19 03:30 03/06/19 03:30 03/06/19 03/06/19 03/06/19 03:30 03:30 04:15 WBC 4.8 RBC 3.16 L Hgb 9.7 L Hct 28.8 L MCV 91 MCH 30.6 MCHC 33.5 RDW 16.6 H Plt Count 108 L Seg Neutrophils % 64.9 Lymphocytes % 19.8 Monocytes % 8.8 Eosinophils % 5.9 Basophils % 0.6 Absolute Neutrophils 3.1 Absolute Lymphocytes 1.0 Absolute Monocytes 0.4 Absolute Eosinophils 0.3 Absolute Basophils 0.0 Sodium 136.1 L Potassium 5.5 H Chloride 100 Carbon Dioxide 27 Anion Gap 9 BUN 49 H Creatinine 2.08 H Est GFR ( Amer) 28 L Est GFR (Non-Af Amer) 23 L Glucose 154 H Calcium 8.7 Magnesium 2.6 H Total Bilirubin 0.5 AST 26 ALT 25 Alkaline Phosphatase 81 Total Protein 5.6 L Albumin 2.9 L 03/04/19 21:10 Rivera Catheter Urine Culture - Final Enterococcus Faecalis(Group D) 03/04/19 03/04/19 14:00 18:05 Troponin I 0.084 0.100 NT-Pro-B Natriuret Pep 3270 H Impressions: Chest X-Ray 03/04/19 12:09 IMPRESSION: Lungs essentially clear. Assessment & Plan - Diagnosis (1) Anemia Qualifiers: Anemia type: due to chronic kidney disease Chronic kidney disease stage: stage 3 (moderate) Qualified Code(s): N18.3 - Chronic kidney disease, stage 3 (moderate); D63.1 - Anemia in chronic kidney disease Is this a current diagnosis for this admission?: No Plan: Get iron studies .Note that she has been given erythropoietin. (2) CHF (congestive heart failure) Qualifiers: Heart failure type: diastolic Is this a current diagnosis for this admission?: No Plan: Showing response to IV diuretics. We will continue current regimens. (3) COPD (chronic obstructive pulmonary disease) Qualifiers: Plan: Stable for the moment. (4) Hyperkalemia Is this a current diagnosis for this admission?: Yes Plan: Being addressed with [place]. Monitor. She should be discharged home on this medication to be taken 3 times a week and followed as an outpatient. (6) Hypertension Is this a current diagnosis for this admission?: No Plan: Presently controlled. Monitor. See response to diuresis. (7) Urinary tract infection Is this a current diagnosis for this admission?: Yes Plan: She is growing E faecalis. However note she is on levofloxacin which is resistant. Would recommend a conversion of that to penicillin analog. (8) CKD (chronic kidney disease), stage IV Plan: She is at baseline. No features of uremia but obviously she has got mild hyperkalemia and congestive heart failure/cor pulmonale. No acute indication exists for renal replacement therapies. We will continue to monitor.
[2019-03-06] MEDS: PATIROMER 8.4 GM SUSP PACKET PO SCH (13:52)
[2019-03-06] MEDS ORDERED: AMOXICILLIN TR/POT CLAVULANATE 500-125 MG TAB PO SCH (14:00)
[2019-03-06] MEDS: ONDANSETRON 4 MG TAB.RAPDIS PO PRN (15:19)
--- NOTE | 2019-03-06 16:15 | PDOC PROGRESS REPORT ---
Subjective Progress Note for:: 03/06/19 Subjective:: PRECIOUS BURCH is a 73 year old female past medical history of CKD stage IV nonoliguric not HD, anemia of CKD, hyperkalemia, morbid obesity, retention, CAD status post CABG in 2001 followed by 1 a stent placement in 2002, Beatties, hypertension, was discharged to a [facility] 3 days ago from [facility]. Patient comes back to ED complaining of generalized fatigue, nausea, subjective fever, nonproductive cough, chronic persistent left lower quadrant abdominal pain radiating to groin, sharp and transient sharp and twisting in nature, chronic constipation chronic back pain. In ED she was found to have hemoglobin of 7.5 down from a baseline of 8-9, potas sium of 5.9 creatinine of 1.89 down from a baseline of 2-3, troponin 0 0.084, BNP of 3270 down from 3450, UA positive for large leukocyte esterase unchanged from previous admission, chest x-ray negative for any acute abnormalities. She was given 1 g of calcium gluconate, IV Lasix hospitalist will consulted for admission. 03/05/2019. No acute events overnight. Still complaining of nausea, no vom iting, generalized fatigue, persistent left lower quadrant abdominal pain and chronic back pain with chronic constipation. Is any chest pain, shortness of breath, diarrhea. 03/05/2019. WBC 5.1. hCG 9.3 status post 2 unit transfusion. Sodium 131.8. Potassium 5.6. Creatinine 1.98 up from 1.89. Blood cultures pending. Urine culture positive for gram-positive cocci in chains. Pending sensitivity. 03/06/2019. No acute events overnight. Stating that she is feeling better today nausea is very minimum and her left lower quadrant abdominal pain is also minimum. Yesterday she had a bowel movement. Denies any fever, chills, constipation, shortness of breath, chest pain or any urinary symptoms. Reason For Visit: HYPERKALEMIA,FATIGUE Physical Exam Vital Signs: Temp Pulse Resp BP Pulse Ox 98.3 F 62 16 121/44 L 96 03/06/19 15:44 03/06/19 15:44 03/06/19 15:44 03/06/19 15:44 03/06/19 15:44 Intake & Output 03/05/19 03/06/19 03/07/19 06:59 06:59 06:59 Intake Total 800 1301 Output Total 530 2600 Balance 270 -1299 Weight 86.636 kg General appearance: PRESENT: obese Head exam: PRESENT: atraumatic, normocephalic Respiratory exam: PRESENT: clear to auscultation cheli. ABSENT: rales, rhonchi, wheezes Cardiovascular exam: PRESENT: RRR. ABSENT: diastolic murmur, rubs, systolic murmur GI/Abdominal exam: PRESENT: normal bowel sounds, soft. ABSENT: distended, guarding, mass, organolmegaly, rebound, tenderness Extremities exam: PRESENT: full ROM. ABSENT: calf tenderness, clubbing, pedal edema Neurological exam: PRESENT: alert, awake, oriented to person, oriented to place, oriented to time, oriented to situation, CN II-XII grossly intact. ABSENT: motor sensory deficit Results Laboratory Results: 03/06/19 03:30 03/06/19 03:30 03/06/19 03/06/19 03/06/19 03:30 03:30 04:15 WBC 4.8 RBC 3.16 L Hgb 9.7 L Hct 28.8 L MCV 91 MCH 30.6 MCHC 33.5 RDW 16.6 H Plt Count 108 L Seg Neutrophils % 64.9 Lymphocytes % 19.8 Monocytes % 8.8 Eosinophils % 5.9 Basophils % 0.6 Absolute Neutrophils 3.1 Absolute Lymphocytes 1.0 Absolute Monocytes 0.4 Absolute Eosinophils 0.3 Absolute Basophils 0.0 Sodium 136.1 L Potassium 5.5 H Chloride 100 Carbon Dioxide 27 Anion Gap 9 BUN 49 H Creatinine 2.08 H Est GFR ( Amer) 28 L Est GFR (Non-Af Amer) 23 L Glucose 154 H Calcium 8.7 Magnesium 2.6 H Total Bilirubin 0.5 AST 26 ALT 25 Alkaline Phosphatase 81 Total Protein 5.6 L Albumin 2.9 L 03/04/19 21:10 Rivera Catheter Urine Culture - Final Enterococcus Faecalis(Group D) 03/04/19 03/04/19 14:00 18:05 Troponin I 0.084 0.100 NT-Pro-B Natriuret Pep 3270 H Impressions: Chest X-Ray 03/04/19 12:09 IMPRESSION: Lungs essentially clear. Assessment and Plan - Diagnosis (1) Hyperkalemia Is this a current diagnosis for this admission?: Yes Plan: Likely due to worsening CKD. Low potassium diet. Hyperkalemia protocol. 03/06/2019: Sodium 136.1. Potassium 5.5. Bicarb 27. Creatinine 2.80 up from 1.98, baseline 2.08. 03/05/2019. Sodium 131.8. Potassium 5.6. Creatinine 1.98 up from 1.89. (2) Fatigue Is this a current diagnosis for this admission?: Yes Plan: Likely due to uremic syndrome caused by worsening CKD and UTI. Correct electrolytes as needed. CMP tomorrow. Nephrology consulted. Follow recommendations. (3) Acute on chronic renal failure Qualifiers: Is this a current diagnosis for this admission?: Yes Plan: Nonoliguric. Monitor electrolytes. Monitor volume status. Neurology consult. 03/06/2019: Saturating 96% on 2.5 L NC FiO2 32%. Fluid balance -1299. Sodium 136.1. Potassium 5.5. Bicarb 27. Creatinine 2.80 up from 1.98, baseline 2.08. Magnesium 2.6. (4) Diabetes mellitus, type II, insulin dependent Is this a current diagnosis for this admission?: No Plan: Diabetic diet. Long-acting insulin, pre-meal insulin, sliding scale insulin, adjust meds as needed. (5) Urinary tract infection Is this a current diagnosis for this admission?: Yes Plan: Persistent chronic. Enterococcus faecalis History of UTI due to E. coli, Proteus, group B strep. Day 3/5 Levofloxacin. UA positive for large leukocyte esterase, urine culture positive for Enterococcus faecalis sensitive to ampicillin and Macrobid. (6) Right sided weakness Is this a current diagnosis for this admission?: No Plan: Due to remote CVA in 1977. Supportive measures. Fall precautions. (7) Morbid obesity with BMI of 45.0-49.9, adult Is this a current diagnosis for this admission?: No Plan: Diet and lifestyle modification. (8) Hypertension Is this a current diagnosis for this admission?: No Plan: Controlled. (9) CHF (congestive heart failure) Qualifiers: Heart failure type: diastolic Is this a current diagnosis for this admission?: No Plan: Diastolic. BNP on admission 3270. Up from 3450 on 02/28/2019. 2D echo from 01/29/2019. LVEF 65%. 2/4 mild to moderate diastolic dysfunction.Not acutely exacerbated based on physical examination. Cardiac diet, fluid restriction. Metoprolol 25 mg p.o. daily, furosemide 20 mg IV twice daily added by volume status and vitals. (10) Elevated troponin Is this a current diagnosis for this admission?: Yes Plan: Likely due to demand ischemia, in the setting of CKD and CHF exacerbation severe anemia. Denies any active chest pain. Follow troponin if elevated will call cardiology. (11) Anemia Qualifiers: Anemia type: due to chronic kidney disease Chronic kidney disease stage: stage 3 (moderate) Qualified Code(s): N18.3 - Chronic kidney disease, stage 3 (moderate); D63.1 - Anemia in chronic kidney disease Is this a current diagnosis for this admission?: No Plan: Hemoglobin 7.5 on admission. Status post 2 PRBC transfusion. Most likely due to CKD combined with iron deficiency anemia due to GI losses. Stool occult blood test positive. She is DNR does not want any intervention at this point. Procrit, supplemental iron. Part of transfusion if less than 7, actively b leeding or symptomatic. H/H tomorrow. (12) Hx of coronary artery disease Is this a current diagnosis for this admission?: Yes Plan: History of CABG in 2001. PCI x1 stent in 2002. Continue aspirin, Plavix, beta-blockers, statins.
[2019-03-06] MEDS: LEVOFLOXACIN 250 MG TABLET PO SCH (16:26)
[2019-03-06] MEDS: PROMETHAZINE HCL INJ 25 MG/1 ML VIAL IV PRN (17:21)
[2019-03-06] MEDS: NITROFURANTOIN MONOHYD/M-CRYST 100 MG CAPSULE PO SCH (17:22)
[2019-03-06] MEDS: ATORVASTATIN CALCIUM 40 MG TABLET PO SCH (17:22)
[2019-03-06] MEDS: INSULIN GLARGINE,HUM.REC.ANLOG 1,000 UNIT/10 ML VIAL SUBCUT SCH (21:12)
[2019-03-07] MEDS: NITROGLYCERIN 0.4 MG/TAB 25 TAB/BOTTLE SL PRN ×2 (01:29→01:36)
[2019-03-07] MEDS: IPRATROPIUM/ALBUTEROL 0.5-2.5 MG/3 ML AMPUL NEB SCH ×4 (01:45→20:18)
[2019-03-07 02:27] LABS: CREATINE KINASE MB 1.02 ng/mL (<4.55); TROPONIN I 0.063 ng/mL
[2019-03-07] MEDS: HEPARIN SOD (PORCINE) 5,000 UNIT/ML 1 ML SYRINGE SUBCUT SCH ×3 (05:32→22:38)
[2019-03-07] MEDS: FUROSEMIDE INJ/PF 20 MG/2 ML SDV IV SCH ×2 (05:32→17:06)
[2019-03-07 08:20] LABS: ABSOLUTE EOSINOPHILS # (AUTO) 0.3 10^3/uL (0.0-0.6); ABSOLUTE LYMPHOCYTES (AUTO) 0.7 10^3/uL (0.5-4.7); ABSOLUTE MONOCYTES (AUTO) 0.3 10^3/uL (0.1-1.4); ABSOLUTE NEUT (AUTO) 2.4 10^3/uL (1.7-8.2); ABSOLUTE RETICS # 0.215 10^6/uL (0.028-0.122); BASOPHILS % (AUTO) 0.8 % (0-2); EOSINOPHILS % (AUTO) 7.8 % (0-6); HEMATOCRIT 27.7 % (36.0-47.0); HEMOGLOBIN 9.2 g/dL (12.0-15.5); LYMPHOCYTES % (AUTO) 18.5 % (13-45); MEAN CORPUSCULAR HEMOGLOBIN 30.6 pg (27.0-33.4); MEAN CORPUSCULAR HGB CONC 33.3 g/dL (32.0-36.0); MEAN CORPUSCULAR VOLUME 92 fl (80-97); MONOCYTES % (AUTO) 7.3 % (3-13); PLATELET COUNT 114 10^3/uL (150-450); RED BLOOD COUNT 3.02 10^6/uL (3.72-5.28); RED CELL DISTRIBUTION WIDTH 16.4 % (11.5-14.0); SEGMENTED NEUTROPHILS % (AUTO) 65.6 % (42-78); TOTAL CELLS COUNTED % (AUTO) 100 %; WHITE BLOOD COUNT 3.7 10^3/uL (4.0-10.5)
[2019-03-07] MEDS: INSULIN LISPRO 100 UNIT/ML 3 ML VIAL SUBCUT SCH ×4 (08:24→21:14)
[2019-03-07] MEDS: OXYCODONE-ACETAMINOPHEN 5-325 MG TABLET PO PRN ×2 (08:27→18:33)
--- NOTE | 2019-03-07 08:30 | EKG REPORT ---
SEVERITY:- ABNORMAL ECG - SINUS RHYTHM NONSPECIFIC INTRAVENTRICULAR CONDUCTION DELAY LOW VOLTAGE IN FRONTAL LEADS BORDERLINE R WAVE PROGRESSION, ANTERIOR LEADS : Confirmed by: Pelon Ruano MD 07-Mar-2019 08:29:52
[2019-03-07 08:32] LABS: ANION GAP 6 (5-19); BLOOD UREA NITROGEN 48 mg/dL (7-20); CALCIUM 8.6 mg/dL (8.4-10.2); CARBON DIOXIDE 30 mmol/L (22-30); CHLORIDE 97 mmol/L (98-107); CREATINE KINASE 36 U/L (30-135); GLUCOSE 201 mg/dL (75-110); IRON(TIBC) 55.4 ug/dL (37-170); POTASSIUM 5.4 mmol/L (3.6-5.0); SODIUM 133.3 mmol/L (137-145)
[2019-03-07 08:46] LABS: CREATINE KINASE MB 1.15 ng/mL (<4.55); TROPONIN I 0.052 ng/mL
[2019-03-07 09:38] LABS: FOLATE 5.63 ng/mL (>2.76)
[2019-03-07] MEDS: LEVOFLOXACIN 250 MG TABLET PO SCH (09:38)
[2019-03-07] MEDS: ISOSORBIDE MONONITRATE 60 MG TAB.ER.24H PO SCH (09:38)
[2019-03-07] MEDS: FAMOTIDINE 20 MG TABLET PO SCH ×2 (09:38→21:14)
[2019-03-07] MEDS: LACTULOSE SYRUP 20 GM/30 ML UDCUP PO SCH (09:39)
[2019-03-07] MEDS: AMLODIPINE BESYLATE 5 MG TABLET PO SCH (09:39)
[2019-03-07] MEDS: EZETIMIBE 10 MG TABLET PO SCH (09:39)
[2019-03-07] MEDS: DOCUSATE SODIUM 100 MG CAPSULE PO SCH (09:39)
[2019-03-07] MEDS: METOPROLOL SUCCINATE 25 MG TAB.SR.24H PO SCH (09:39)
[2019-03-07] MEDS: ASPIRIN 81 MG TABLET, CHEWABLE PO SCH (09:39)
[2019-03-07] MEDS: CLOPIDOGREL BISULFATE 75 MG TABLET PO SCH (09:39)
--- NOTE | 2019-03-07 09:56 | PDOC CONSULTATION ---
Consultation Consult Date: 03/07/19 Consult reason:: Anemia and guiac stool positive History of Present Illness Admission Date/PCP: 03/04/19 15:59 DANI PANDA DO History of Present Illness: PRECIOUS BURCH is a 73 year old female withcomplicated medical history including DM,CAD,CHF,CRF was admitted for anemia and stool guiac positive. I believe she is a DNR. Will talk to her when he comes today. Patient claims Dr Tony did her colonoscopy in the past. Dr Tony will be back Saturday or Saturday. Past Medical History Cardiac Medical History: Reports: Congestive Heart Failure, Coronary Artery Disease - BYPASS 2001, Myocardial Infarction, Hyperlipidema, Hypertension Denies: Atrial Fibrillation, DVT, Pulmonary Embolism Pulmonary Medical History: Reports: Asthma, Bronchitis, Chronic Obstructive Pulmonary Disease (COPD), Pneumonia, Respiratory Failure, Sleep Apnea - no cpap insurance does not cover Denies: Tuberculosis Neurological Medical History: Denies: Seizures Endocrine Medical History: Reports: Diabetes Mellitus Type 2 - DX [place] 1994 Denies: Diabetes Mellitus Type 1, Hyperthyroidism, Hypothyroidism Renal/ Medical History: Reports: End Stage Renal Disease GI Medical History: Denies: Cirrhosis, Gastroesophageal Reflux Disease, Hepatitis Musculoskeltal Medical History: Reports: Arthritis Denies: Gout Skin Medical History: Denies: Eczema, Psoriasis Psychiatric Medical History: Reports: Depression Denies: Bipolar Disorder Hematology: Reports: Anemia, Bleeding Tendencies Denies: Hemophilia, Sickle Cell Disease Past Surgical History Past Surgical History: Reports: Cardiac Catheterization, Section, Cholecystectomy, Coronary Stent, Gastric Bypass Surgery - 2001, Hysterectomy, Tubal Ligation Denies: Amputation Social History Smoking Status: Unknown if Ever Smoked Frequency of Alcohol Use: None Hx Recreational Drug Use: No Drugs: None Hx Prescription Drug Abuse: No - Advance Directive Resuscitation Status: Do Not Resuscitate Family History Family History: CAD, COPD, DM, Hypertension, Malignancy, Other - Kidney disease Parental Family History Reviewed: Yes Children Family History Reviewed: No Sibling(s) Family History Reviewed.: No Medication/Allergy Home Medications: Acetaminophen [Tylenol 325 mg Tablet] 650 mg PO Q6HP PRN 03/04/19 Albuterol Sulfate [Albuterol Sulfate Hfa] 2 puff IH Q8HP PRN 03/04/19 Amlodipine Besylate [Norvasc 10 mg Tablet] 10 mg PO DAILY 03/04/19 Aspirin [Aspirin 81 mg Chewable Tablet] 81 mg PO DAILY 03/04/19 Atorvastatin Calcium [Lipitor 40 mg Tablet] 40 mg PO QPM 03/04/19 Clopidogrel Bisulfate [Plavix 75 mg Tablet] 75 mg PO DAILY 03/04/19 Cyclosporine 0.05% Oph Emulsio [Restasis 0.05% Oph Emulsion Pf 0.4 ml] 1 drop OU BID 03/04/19 Diphenhydramine HCl [Benadryl 25 mg Capsule] 25 mg PO QPM 03/04/19 Epoetin Aung [Procrit Inj 40,000 Unit/1 ml Vial (Renal)] 2 ml SQ WE@0800 03/04/19 Ezetimibe [Zetia 10 mg Tablet] 10 mg PO DAILY 03/04/19 Fenofibrate Nanocrystallized [Triglide] 160 mg PO DAILY 03/04/19 Fluticasone/Salmeterol [Advair 250-50 Diskus 14 Dose/Diskus] 1 puff IH Q12 03/04 Furosemide [Lasix 20 mg Tablet] 20 mg PO BID 03/04/19 Gabapentin [Neurontin] 600 mg PO Q12 03/04/19 Hydroxyzine Pamoate [Vistaril 50 mg Capsule] 50 mg PO Q8HP PRN 03/04/19 Insulin Glargine,Hum.rec.anlog [Lantus Insulin 100 Unit/1 ml 10 ml] 10 unit SQ BID 03/04/19 Insulin Lispro [Humalog Insulin (Lispro) 100 unit/mL] 0 unit SQ .SLIDING SCALE 03/04/19 Isosorbide Mononitrate [Imdur 60 mg Tablet.er] 60 mg PO DAILY 03/04/19 Levalbuterol HCl [Levalbuterol Concentrate] 1.25 mg NEB RTQ6 03/04/19 Linaclotide [Linzess] 72 mcg PO DAILY 03/04/19 Losartan Potassium [Cozaar 25 mg Tablet] 25 mg PO DAILY 03/04/19 Metoprolol Succinate [Toprol Xl 25 mg Tab.sr] 25 mg PO DAILY 03/04/19 Montelukast Sodium [Singulair 10 mg Tablet] 10 mg PO QPM 03/04/19 Nitroglycerin [Nitrostat 0.4 mg (1/150 Gr) Tabs 25/Bottle] 0.4 mg PO Q5MP PRN 03/04/19 Omeprazole 40 mg PO BID 03/04/19 Ondansetron HCl [Zofran 8 mg Tablet] 8 mg PO Q4HP PRN 03/04/19 Oxycodone HCl/Acetaminophen [Percocet 5-325 mg Tablet] 1 tab PO Q6HP PRN 03/04/19 Rosuvastatin Calcium [Crestor] 40 mg PO QPM 03/04/19 Allergies/Adverse Reactions: amoxicillin trihydrate [From Augmentin] Allergy (Severe, Verified 01/06/19 14:12) stomach cramps, n and v, rash butalbital [From Fiorinal] Allergy (Unknown, Verified 01/06/19 14:12) rash metformin HCl [From Glucophage] Allergy (Unknown, Verified 01/06/19 14:12) rash Potassium Clavulanate * [From Augmentin] Adverse Reaction (Unknown, Verified 01/06/19 14:12) nausea, vomit, epig pain Review of Systems Constitutional: PRESENT: other - no fever/chills Eyes: PRESENT: other - no visual/hearing changes Nose, Mouth, and Throat: PRESENT: other - no sore throat Respiratory: PRESENT: other - no cough Gastrointestinal: PRESENT: abdominal pain - chronic dull ache left side of abdomen x 4 weeks, constipation Neurological: PRESENT: weakness Physical Exam Vital Signs: Temp Pulse Resp BP Pulse Ox 97.7 F 70 20 139/50 H 98 03/07/19 07:40 03/07/19 07:40 03/07/19 07:40 03/07/19 07:40 03/07/19 07:40 Intake & Output 03/06/19 03/07/19 03/08/19 06:59 06:59 06:59 Intake Total 1301 Output Total 2600 925 Balance -1299 -925 Weight 49.5 kg General appearance: PRESENT: no acute distress Head exam: PRESENT: atraumatic Eye exam: PRESENT: conjunctiva pale Mouth exam: PRESENT: moist Neck exam: PRESENT: full ROM Respiratory exam: PRESENT: clear to auscultation cheli Cardiovascular exam: PRESENT: RRR Pulses: PRESENT: normal radial pulses Vascular exam: PRESENT: normal capillary refill GI/Abdominal exam: PRESENT: soft, tenderness - mild tenderness left side with some fullness Rectal exam: PRESENT: deferred Neurological exam: PRESENT: alert, oriented to place, oriented to time, oriented to situation Psychiatric exam: PRESENT: appropriate affect Skin exam: PRESENT: normal color, warm Results Laboratory Results: 03/07/19 07:29 03/07/19 07:29 03/07/19 03/07/19 07:29 07:29 WBC 3.7 L RBC 3.02 L Hgb 9.2 L Hct 27.7 L MCV 92 MCH 30.6 MCHC 33.3 RDW 16.4 H Plt Count 114 L Seg Neutrophils % 65.6 Lymphocytes % 18.5 Monocytes % 7.3 Eosinophils % 7.8 H Basophils % 0.8 Absolute Neutrophils 2.4 Absolute Lymphocytes 0.7 Absolute Monocytes 0.3 Absolute Eosinophils 0.3 Absolute Basophils 0.0 Retic Count (auto) 7.10 H Absolute Retic 0.215 H Sodium 133.3 L Potassium 5.4 H Chloride 97 L Carbon Dioxide 30 Anion Gap 6 BUN 48 H Creatinine 2.42 H Est GFR ( Amer) 24 L Est GFR (Non-Af Amer) 20 L Glucose 201 H Calcium 8.6 Iron 55.4 TIBC 282 % Saturation 20 Ferritin 223.00 Vitamin B12 356.0 Folate 5.63 03/04/19 21:10 Rivera Catheter Urine Culture - Final Enterococcus Faecalis(Group D) 03/04/19 03/04/19 03/07/19 14:00 18:05 01:45 Creatine Kinase CK-MB (CK-2) 1.02 Troponin I 0.084 0.100 0.063 NT-Pro-B Natriuret Pep 3270 H 03/07/19 03/07/19 03/07/19 01:45 07:29 07:29 Creatine Kinase 33 36 CK-MB (CK-2) 1.15 Troponin I 0.052 NT-Pro-B Natriuret Pep Impressions: Chest X-Ray 03/04/19 12:09 IMPRESSION: Lungs essentially clear. Assessment & Plan - Diagnosis (1) Anemia Qualifiers: Anemia type: due to chronic kidney disease Chronic kidney disease stage: stage 3 (moderate) Qualified Code(s): N18.3 - Chronic kidney disease, stage 3 (moderate); D63.1 - Anemia in chronic kidney disease Is this a current diagnosis for this admission?: No (2) CHF (congestive heart failure) Qualifiers: Heart failure type: diastolic Is this a current diagnosis for this admission?: No (4) Fatigue Is this a current diagnosis for this admission?: Yes (5) Hyperkalemia Is this a current diagnosis for this admission?: Yes (8) CHF (congestive heart failure) Qualifiers: Heart failure type: unspecified Heart failure chronicity: acute on chronic Qualified Code(s): I50.9 - Heart failure, unspecified (9) Urinary tract infection Is this a current diagnosis for this admission?: Yes (10) Diabetes mellitus type 1 Is this a current diagnosis for this admission?: Yes (11) Acute on chronic diastolic (congestive) heart failure Is this a current diagnosis for this admission?: No - Time Time Spent: 30 to 50 Minutes - Plan Summary Plan Summary: Patient does not appear to be actively bleeding Would recommend follow up with her GI Dr Tony Saturday or Saturday for colonoscopy.
[2019-03-07] MEDS ORDERED: AMLODIPINE BESYLATE 10 MG TABLET PO SCH (10:00)
--- NOTE | 2019-03-07 12:46 | PDOC PROGRESS REPORT ---
Subjective Progress Note for:: 03/07/19 Subjective:: PRECIOUS BURCH is a 73 year old female past medical history of CKD stage IV nonoliguric not HD, anemia of CKD, hyperkalemia, morbid obesity, retention, CAD status post CABG in 2001 followed by 1 a stent placement in 2002, Beatties, hypertension, was discharged to a [facility] 3 days ago from [facility]. Patient comes back to ED complaining of generalized fatigue, nausea, subjective fever, nonproductive cough, chronic persistent left lower quadrant abdominal pain radiating to groin, sharp and transient sharp and twisting in nature, chronic constipation chronic back pain. In ED she was found to have hemoglobin of 7.5 down from a baseline of 8-9, potas sium of 5.9 creatinine of 1.89 down from a baseline of 2-3, troponin 0 0.084, BNP of 3270 down from 3450, UA positive for large leukocyte esterase unchanged from previous admission, chest x-ray negative for any acute abnormalities. She was given 1 g of calcium gluconate, IV Lasix hospitalist will consulted for admission. 03/05/2019. No acute events overnight. Still complaining of nausea, no vom iting, generalized fatigue, persistent left lower quadrant abdominal pain and chronic back pain with chronic constipation. Is any chest pain, shortness of breath, diarrhea. 03/05/2019. WBC 5.1. hCG 9.3 status post 2 unit transfusion. Sodium 131.8. Potassium 5.6. Creatinine 1.98 up from 1.89. Blood cultures pending. Urine culture positive for gram-positive cocci in chains. Pending sensitivity. 03/06/2019. No acute events overnight. Stating that she is feeling better today nausea is very minimum and her left lower quadrant abdominal pain is also minimum. Yesterday she had a bowel movement. Denies any fever, chills, constipation, shortness of breath, chest pain or any urinary symptoms. 03/07/2019. No acute events overnight. Nausea and fatigue has improved, patient had one episode of chest pain EKG was done which did not show any acute changes, troponin was within normal limits, denies any chest pain on my encounter. Had one bowel movement yesterday, p.o. tolerant having normal bladder movements. Wants to be transferred to another mcc instead of the one that she came from. And vomiting. SBP 105-148, T-max 98.5, pulse 58-69, on 2 L NC. WBC 3.7, Hgb 9.2, Plt 114, Na 133, K 5.4, HCO3 30, Cash Management Clerk 2.42 up from 2.08. I/O 1301/2600 balance -1299 Reason For Visit: HYPERKALEMIA,FATIGUE Physical Exam Vital Signs: Temp Pulse Resp BP Pulse Ox 97.7 F 70 20 139/50 H 98 03/07/19 07:40 03/07/19 07:40 03/07/19 07:40 03/07/19 07:40 03/07/19 07:40 Intake & Output 03/06/19 03/07/19 03/08/19 06:59 06:59 06:59 Intake Total 1301 Output Total 2600 925 Balance -1299 -925 Weight 49.5 kg General appearance: PRESENT: no acute distress, morbidly obese, well-developed, well-nourished Head exam: PRESENT: atraumatic, normocephalic Respiratory exam: PRESENT: clear to auscultation cheli. ABSENT: rales, rhonchi, wheezes Cardiovascular exam: PRESENT: RRR. ABSENT: diastolic murmur, rubs, systolic murmur GI/Abdominal exam: PRESENT: normal bowel sounds, soft, tenderness - LLQ. ABSENT: distended, guarding, mass, organolmegaly, rebound Extremities exam: PRESENT: full ROM. ABSENT: calf tenderness, clubbing, pedal edema Neurological exam: PRESENT: alert, awake, oriented to person, oriented to place, oriented to time, oriented to situation, CN II-XII grossly intact. ABSENT: motor sensory deficit Results Laboratory Results: 03/07/19 07:29 03/07/19 07:29 03/07/19 03/07/19 07:29 07:29 WBC 3.7 L RBC 3.02 L Hgb 9.2 L Hct 27.7 L MCV 92 MCH 30.6 MCHC 33.3 RDW 16.4 H Plt Count 114 L Seg Neutrophils % 65.6 Lymphocytes % 18.5 Monocytes % 7.3 Eosinophils % 7.8 H Basophils % 0.8 Absolute Neutrophils 2.4 Absolute Lymphocytes 0.7 Absolute Monocytes 0.3 Absolute Eosinophils 0.3 Absolute Basophils 0.0 Retic Count (auto) 7.10 H Absolute Retic 0.215 H Sodium 133.3 L Potassium 5.4 H Chloride 97 L Carbon Dioxide 30 Anion Gap 6 BUN 48 H Creatinine 2.42 H Est GFR ( Amer) 24 L Est GFR (Non-Af Amer) 20 L Glucose 201 H Calcium 8.6 Iron 55.4 TIBC 282 % Saturation 20 Ferritin 223.00 Vitamin B12 356.0 Folate 5.63 03/04/19 03/04/19 03/07/19 14:00 18:05 01:45 Creatine Kinase CK-MB (CK-2) 1.02 Troponin I 0.084 0.100 0.063 NT-Pro-B Natriuret Pep 3270 H 03/07/19 03/07/19 03/07/19 01:45 07:29 07:29 Creatine Kinase 33 36 CK-MB (CK-2) 1.15 Troponin I 0.052 NT-Pro-B Natriuret Pep Impressions: Chest X-Ray 03/04/19 12:09 IMPRESSION: Lungs essentially clear. Assessment and Plan - Diagnosis (1) Hyperkalemia Is this a current diagnosis for this admission?: Yes Plan: Likely due to worsening CKD. Low potassium diet. Hyperkalemia protocol. 03/07/2019: Na 133, K 5.4, HCO3 30, Cash Management Clerk 2.42 up from 2.08. I/O 1301/2600 balance -1299 03/06/2019: Sodium 136.1. Potassium 5.5. Bicarb 27. Creatinine 2.80 up from 1.98, baseline 2.08. 03/05/2019. Sodium 131.8. Potassium 5.6. Creatinine 1.98 up from 1.89. (2) Fatigue Is this a current diagnosis for this admission?: Yes Plan: Improving. Likely due to uremic syndrome caused by worsening CKD and UTI. Correct electrolytes as needed. CMP tomorrow. Nephrology consulted. Follow recommendations. (3) Acute on chronic renal failure Qualifiers: Is this a current diagnosis for this admission?: Yes Plan: Nonoliguric. Monitor electrolytes. Monitor volume status. Neurology consult. 03/07/2019 SBP 105-148, T-max 98.5, pulse 58-69, on 2 L NC. Na 133, K 5.4, HCO3 30, Cash Management Clerk 2.42 up from 2.08. I/O 1301/2600 balance -1299 03/06/2019: Saturating 96% on 2.5 L NC FiO2 32%. Fluid balance -1299. Sodium 136.1. Potassium 5.5. Bicarb 27. Creatinine 2.80 up from 1.98, baseline 2.08. Magnesium 2.6. (4) Diabetes mellitus, type II, insulin dependent Is this a current diagnosis for this admission?: No Plan: Diabetic diet. Long-acting insulin, pre-meal insulin, sliding scale insulin, adjust meds as needed. (5) Urinary tract infection Is this a current diagnosis for this admission?: Yes Plan: Persistent chronic. Enterococcus faecalis History of UTI due to E. coli, Proteus, group B strep. UA positive for large leukocyte esterase, urine culture positive for Enterococcus faecalis sensitive to ampicillin and Macrobid resistant to quinolones Day 2/ Macrobid (6) Right sided weakness Is this a current diagnosis for this admission?: No Plan: Due to remote CVA in 1977. Supportive measures. Fall precautions. (7) Morbid obesity with BMI of 45.0-49.9, adult Is this a current diagnosis for this admission?: No Plan: Diet and lifestyle modification. (8) Hypertension Is this a current diagnosis for this admission?: No Plan: Contorlled. 03/07/2019. SBP 105-148 Continue decrease amlodipine to 5 mg p.o. daily to avoid constipation, isosorbide mononitrate 60 mg p.o. daily, metoprolol succinate 50 mg p.o. daily. (9) CHF (congestive heart failure) Qualifiers: Heart failure type: diastolic Is this a current diagnosis for this admission?: No Plan: Diastolic heart failure. BNP on admission 3270. Up from 3450 on 02/28/2019. 2D echo from 01/29/2019. LVEF 65%. 2/4 mild to moderate diastolic dysfunction.Not acutely exacerbated based on physical examination. Cardiac diet, fluid restriction. Increase metoprolol to 50 mg p.o. daily, furosemide 20 mg IV twice daily guided by volume status and vitals. 03/07/2019 I/O 1301/2600 balance -1299 (10) Elevated troponin Is this a current diagnosis for this admission?: Yes Plan: Likely due to demand ischemia, in the setting of CKD and CHF exacerbation severe anemia. Denies any active chest pain. Follow troponin if elevated will call cardiology. (11) Anemia Qualifiers: Anemia type: due to chronic kidney disease Chronic kidney disease stage: stage 3 (moderate) Qualified Code(s): N18.3 - Chronic kidney disease, stage 3 (moderate); D63.1 - Anemia in chronic kidney disease Is this a current diagnosis for this admission?: No Plan: Stable. Denies any active bleeding. Hemoglobin 7.5 on admission. Status post 2 PRBC transfusion on admission. Most likely due to CKD combined with iron deficiency anemia due to GI losses. Iron panel within normal limits. Stool occult blood test positive. Surgery consulted no intervention at this point as patient is not actively bleeding. Will up with Dr. Tony, her GI specialist has been recommended next week for possible upper and lower GI endoscopy. Procrit, supplemental iron. Part of transfusion if less than 7, actively bleeding or symptomatic. H/H tomorrow. (12) Hx of coronary artery disease Is this a current diagnosis for this admission?: Yes Plan: History of CABG in 2001. PCI x1 stent in 2002. Continue aspirin, Plavix, beta-blockers, statins.
[2019-03-07 14:15] LABS: CREATINE KINASE MB 1.06 ng/mL (<4.55); TROPONIN I 0.044 ng/mL
[2019-03-07] MEDS: PATIROMER 8.4 GM SUSP PACKET PO SCH (14:20)
[2019-03-07] MEDS: NITROFURANTOIN MONOHYD/M-CRYST 100 MG CAPSULE PO SCH (17:05)
[2019-03-07] MEDS: ATORVASTATIN CALCIUM 40 MG TABLET PO SCH (17:05)
[2019-03-07] MEDS: ONDANSETRON 4 MG TAB.RAPDIS PO PRN (19:40)
[2019-03-07] MEDS: INSULIN GLARGINE,HUM.REC.ANLOG 1,000 UNIT/10 ML VIAL SUBCUT SCH (21:14)
[2019-03-08] MEDS: OXYCODONE-ACETAMINOPHEN 5-325 MG TABLET PO PRN ×2 (00:36→06:42)
[2019-03-08] MEDS: IPRATROPIUM/ALBUTEROL 0.5-2.5 MG/3 ML AMPUL NEB SCH ×4 (02:11→21:00)
[2019-03-08] MEDS: HEPARIN SOD (PORCINE) 5,000 UNIT/ML 1 ML SYRINGE SUBCUT SCH ×2 (05:21→14:59)
[2019-03-08] MEDS: FUROSEMIDE INJ/PF 20 MG/2 ML SDV IV SCH ×2 (05:24→17:21)
[2019-03-08 06:02] LABS: ABSOLUTE EOSINOPHILS # (AUTO) 0.3 10^3/uL (0.0-0.6); ABSOLUTE LYMPHOCYTES (AUTO) 0.8 10^3/uL (0.5-4.7); ABSOLUTE MONOCYTES (AUTO) 0.3 10^3/uL (0.1-1.4); ABSOLUTE NEUT (AUTO) 2.5 10^3/uL (1.7-8.2); BASOPHILS % (AUTO) 0.8 % (0-2); EOSINOPHILS % (AUTO) 8.5 % (0-6); HEMATOCRIT 28.3 % (36.0-47.0); HEMOGLOBIN 9.5 g/dL (12.0-15.5); LYMPHOCYTES % (AUTO) 20.5 % (13-45); MEAN CORPUSCULAR HEMOGLOBIN 30.9 pg (27.0-33.4); MEAN CORPUSCULAR HGB CONC 33.6 g/dL (32.0-36.0); MEAN CORPUSCULAR VOLUME 92 fl (80-97); MONOCYTES % (AUTO) 7.2 % (3-13); PLATELET COUNT 117 10^3/uL (150-450); RED BLOOD COUNT 3.08 10^6/uL (3.72-5.28); RED CELL DISTRIBUTION WIDTH 16.3 % (11.5-14.0); TOTAL CELLS COUNTED % (AUTO) 100 %; WHITE BLOOD COUNT 3.9 10^3/uL (4.0-10.5)
[2019-03-08 06:24] LABS: ALANINE AMINOTRANSFERASE 25 U/L (9-52); ALBUMIN 3.1 g/dL (3.5-5.0); ALKALINE PHOSPHATASE 95 U/L (38-126); ANION GAP 12 (5-19); ASPARTATE AMINO TRANSFERASE 21 U/L (14-36); BILIRUBIN,DIRECT 0.3 mg/dL (0.0-0.4); BILIRUBIN,TOTAL 0.6 mg/dL (0.2-1.3); BLOOD UREA NITROGEN 45 mg/dL (7-20); CALCIUM 8.4 mg/dL (8.4-10.2); CARBON DIOXIDE 28 mmol/L (22-30); CHLORIDE 96 mmol/L (98-107); GLUCOSE 186 mg/dL (75-110); POTASSIUM 4.9 mmol/L (3.6-5.0); SODIUM 135.7 mmol/L (137-145); TOTAL PROTEIN 5.7 g/dL (6.3-8.2)
[2019-03-08] MEDS: ONDANSETRON 4 MG TAB.RAPDIS PO PRN ×2 (06:42→11:47)
[2019-03-08] MEDS: INSULIN LISPRO 100 UNIT/ML 3 ML VIAL SUBCUT SCH ×4 (08:11→22:14)
[2019-03-08] MEDS ORDERED: DEXTROSE 40% GEL 15 GM TUBE PO PRN ×2 (09:46)
[2019-03-08] MEDS ORDERED: DEXTROSE 50%-WATER 25 GM/50 ML DISP.SYRIN IV PRN ×2 (09:46)
[2019-03-08] MEDS ORDERED: GLUCAGON,HUMAN RECOMB 1 MG INJ IM PRN (09:46)
[2019-03-08] MEDS: ASPIRIN 81 MG TABLET, CHEWABLE PO SCH (10:13)
[2019-03-08] MEDS: DOCUSATE SODIUM 100 MG CAPSULE PO SCH (10:13)
[2019-03-08] MEDS: EZETIMIBE 10 MG TABLET PO SCH (10:13)
[2019-03-08] MEDS: ISOSORBIDE MONONITRATE 60 MG TAB.ER.24H PO SCH (10:13)
[2019-03-08] MEDS: LEVOFLOXACIN 250 MG TABLET PO SCH (10:13)
[2019-03-08] MEDS: AMLODIPINE BESYLATE 5 MG TABLET PO SCH (10:13)
[2019-03-08] MEDS: CLOPIDOGREL BISULFATE 75 MG TABLET PO SCH (10:13)
[2019-03-08] MEDS: METOPROLOL SUCCINATE 25 MG TAB.SR.24H PO SCH (10:13)
--- NOTE | 2019-03-08 10:13 | PDOC PROGRESS REPORT ---
Subjective Progress Note for:: 03/08/19 Subjective:: PRECIOUS BURCH is a 73 year old female past medical history of CKD stage IV nonoliguric not HD, anemia of CKD, hyperkalemia, morbid obesity, retention, CAD status post CABG in 2001 followed by 1 a stent placement in 2002, [place], hypertension, was [facility] from [facility]. Patient comes back to ED complaining of generalized fatigue, nausea, subjective fever, nonproductive cough, chronic persistent left lower quadrant abdominal pain radiating to groin, sharp and transient sharp and twisting in nature, chronic constipation chronic back pain. In ED she was found to have hemoglobin of 7.5 down from a baseline of 8-9, potas sium of 5.9 creatinine of 1.89 down from a baseline of 2-3, troponin 0 0.084, BNP of 3270 down from 3450, UA positive for large leukocyte esterase unchanged from previous admission, chest x-ray negative for any acute abnormalities. She was given 1 g of calcium gluconate, IV Lasix hospitalist will consulted for admission. 03/05/2019. No acute events overnight. Still complaining of nausea, no vom iting, generalized fatigue, persistent left lower quadrant abdominal pain and chronic back pain with chronic constipation. Is any chest pain, shortness of breath, diarrhea. 03/05/2019. WBC 5.1. hCG 9.3 status post 2 unit transfusion. Sodium 131.8. Potassium 5.6. Creatinine 1.98 up from 1.89. Blood cultures pending. Urine culture positive for gram-positive cocci in chains. Pending sensitivity. 03/06/2019. No acute events overnight. Stating that she is feeling better today nausea is very minimum and her left lower quadrant abdominal pain is also minimum. Yesterday she had a bowel movement. Denies any fever, chills, constipation, shortness of breath, chest pain or any urinary symptoms. 03/07/2019. No acute events overnight. Nausea and fatigue has improved, patient had one episode of chest pain EKG was done which did not show any acute changes, troponin was within normal limits, denies any chest pain on my encounter. Had one bowel movement yesterday, p.o. tolerant having normal bladder movements. Wants to be transferred to another jail instead of the one that she came from. And vomiting. 03/08/2019. Patient was anxious last night otherwise no acute events, still feeling lethargic and weak, nausea and abdominal pain has improved, p.o. tolerant, last bowel movement yesterday, any fever, chills, nausea, vomiting, diarrhea, constipation or any urinary symptoms. Patient used to be living at [facility] and does not want to go back there otherwise patient could be discharged when placement is available. SBP 105-134, T-max 98.4, RR 16-20, HR 57-68, FiO2 100% on 2 L NC. I/O 77 02/3650 balance -2876. Sodium 135.7, potassium 4.9, bicarb 28, creatinine 2.24 down from 2.42, Reason For Visit: HYPERKALEMIA,FATIGUE Physical Exam Vital Signs: Temp Pulse Resp BP Pulse Ox 98.4 F 62 20 134/44 H 100 03/08/19 07:26 03/08/19 07:26 03/08/19 07:26 03/08/19 07:26 03/08/19 07:26 Intake & Output 03/07/19 03/08/19 03/09/19 06:59 06:59 06:59 Intake Total 774 Output Total 925 3650 Balance -925 -2876 Weight 49.5 kg 48.1 kg General appearance: PRESENT: no acute distress, obese, well-developed, well- nourished Head exam: PRESENT: atraumatic, normocephalic Respiratory exam: PRESENT: clear to auscultation cheli. ABSENT: rales, rhonchi, wheezes GI/Abdominal exam: PRESENT: normal bowel sounds, soft, tenderness - LLQ. ABSENT : distended, guarding, mass, organolmegaly, rebound Extremities exam: PRESENT: full ROM. ABSENT: calf tenderness, clubbing, pedal edema Neurological exam: PRESENT: alert, awake, oriented to person, oriented to place, oriented to time, oriented to situation, CN II-XII grossly intact. ABSENT: motor sensory deficit Psychiatric exam: PRESENT: depressed Results Laboratory Results: 03/08/19 04:30 03/08/19 04:30 03/08/19 03/08/19 04:30 04:30 WBC 3.9 L RBC 3.08 L Hgb 9.5 L Hct 28.3 L MCV 92 MCH 30.9 MCHC 33.6 RDW 16.3 H Plt Count 117 L Seg Neutrophils % 63.0 Lymphocytes % 20.5 Monocytes % 7.2 Eosinophils % 8.5 H Basophils % 0.8 Absolute Neutrophils 2.5 Absolute Lymphocytes 0.8 Absolute Monocytes 0.3 Absolute Eosinophils 0.3 Absolute Basophils 0.0 Sodium 135.7 L Potassium 4.9 Chloride 96 L Carbon Dioxide 28 Anion Gap 12 BUN 45 H Creatinine 2.24 H Est GFR ( Amer) 26 L Est GFR (Non-Af Amer) 22 L Glucose 186 H Calcium 8.4 Magnesium 2.3 Total Bilirubin 0.6 AST 21 ALT 25 Alkaline Phosphatase 95 Total Protein 5.7 L Albumin 3.1 L 03/04/19 03/04/19 03/07/19 14:00 18:05 01:45 Creatine Kinase CK-MB (CK-2) 1.02 Troponin I 0.084 0.100 0.063 NT-Pro-B Natriuret Pep 3270 H 03/07/19 03/07/19 03/07/19 01:45 07:29 07:29 Creatine Kinase 33 36 CK-MB (CK-2) 1.15 Troponin I 0.052 NT-Pro-B Natriuret Pep 03/07/19 03/07/19 13:29 13:29 Creatine Kinase 35 CK-MB (CK-2) 1.06 Troponin I 0.044 NT-Pro-B Natriuret Pep Impressions: Chest X-Ray 03/04/19 12:09 IMPRESSION: Lungs essentially clear. Assessment and Plan - Diagnosis (1) Hyperkalemia Is this a current diagnosis for this admission?: Yes Plan: Resolved. Likely due to worsening CKD. Low potassium diet. Hyperkalemia protocol. 03/08/2019: Sodium 135.7, potassium 4.9, bicarb 28, creatinine 2.24 down from 2.42 03/07/2019: Na 133, K 5.4, HCO3 30, Hauling Contractor 2.42 up from 2.08. I/O 1301/2600 balance -1299 03/06/2019: Sodium 136.1. Potassium 5.5. Bicarb 27. Creatinine 2.80 up from 1.98, baseline 2.08. 03/05/2019. Sodium 131.8. Potassium 5.6. Creatinine 1.98 up from 1.89. Continue daily lactulose, and [place] (2) Fatigue Is this a current diagnosis for this admission?: Yes Plan: Improving. Likely due to uremic syndrome caused by worsening CKD and UTI. Correct electrolytes as needed. CMP tomorrow. Nephrology consulted. Follow recommendations. (3) Acute on chronic renal failure Qualifiers: Is this a current diagnosis for this admission?: Yes Plan: Nonoliguric. Monitor electrolytes. Monitor volume status. Neurology consult. Creatinine back at baseline. 03/08/2019: Sodium 135.7, potassium 4.9, bicarb 28, creatinine 2.24 down from 2.42, I/O 77 02/3650 balance -2876. 03/07/2019 SBP 105-148, T-max 98.5, pulse 58-69, on 2 L NC. Na 133, K 5.4, HCO3 30, Hauling Contractor 2.42 up from 2.08. I/O 1301/2600 balance -1299 03/06/2019: Saturating 96% on 2.5 L NC FiO2 32%. Fluid balance -1299. Sodium 136.1. Potassium 5.5. Bicarb 27. Creatinine 2.80 up from 1.98, baseline 2.08. Magnesium 2.6. (4) Diabetes mellitus, type II, insulin dependent Is this a current diagnosis for this admission?: No Plan: Diabetic diet. Long-acting insulin, pre-meal insulin, sliding scale insulin, adjust meds as needed. (5) Urinary tract infection Is this a current diagnosis for this admission?: Yes Plan: Persistent chronic. Enterococcus faecalis History of UTI due to E. coli, Proteus, group B strep. UA positive for large leukocyte esterase, urine culture positive for Enterococcus faecalis sensitive to ampicillin and Macrobid resistant to quinolones Day 3/5 Macrobid (6) Right sided weakness Is this a current diagnosis for this admission?: No Plan: Due to remote CVA in 1977. Supportive measures. Fall precautions. (7) Morbid obesity with BMI of 45.0-49.9, adult Is this a current diagnosis for this admission?: No Plan: Diet and lifestyle modification. (8) Hypertension Is this a current diagnosis for this admission?: No Plan: Contorlled. 03/08/2019: SBP 105-134 03/07/2019. SBP 105-148 Continue decrease amlodipine to 5 mg p.o. daily to avoid constipation, isosorbide mononitrate 60 mg p.o. daily, metoprolol succinate 50 mg p.o. daily. (9) CHF (congestive heart failure) Qualifiers: Heart failure type: diastolic Is this a current diagnosis for this admission?: No Plan: Diastolic heart failure. BNP on admission 3270. Up from 3450 on 02/28/2019. 2D echo from 01/29/2019. LVEF 65%. 2/4 mild to moderate diastolic dysfunction.Not acutely exacerbated based on physical examination. Cardiac diet, fluid restriction. Increase metoprolol to 50 mg p.o. daily, furosemide 20 mg IV twice daily guided by volume status and vitals. 03/07/2019 I/O 1301/2600 balance -1299 03/08/2019: I/O 774/3650 balance -2876. (10) Elevated troponin Is this a current diagnosis for this admission?: Yes Plan: Likely due to demand ischemia, in the setting of CKD and CHF exacerbation severe anemia. Denies any active chest pain. Follow troponin if elevated will call cardiology. (11) Anemia Qualifiers: Anemia type: due to chronic kidney disease Chronic kidney disease stage: stage 3 (moderate) Qualified Code(s): N18.3 - Chronic kidney disease, stage 3 (moderate); D63.1 - Anemia in chronic kidney disease Is this a current diagnosis for this admission?: No Plan: Stable. Denies any active bleeding. Hemoglobin 7.5 on admission. Status post 2 PRBC transfusion on admission. Most likely due to CKD combined with iron deficiency anemia due to GI losses. Iron panel within normal limits. Stool occult blood test positive. Surgery consulted no intervention at this point as patient is not actively bleeding. Will up with Dr. Tony, her GI specialist has been recommended next week for possible upper and lower GI endoscopy. Procrit, supplemental iron. Part of transfusion if less than 7, actively bleeding or symptomatic. H/H tomorrow. (12) Hx of coronary artery disease Is this a current diagnosis for this admission?: Yes Plan: History of CABG in 2001. PCI x1 stent in 2002. Continue aspirin, Plavix, beta-blockers, statins. (13) Depression Is this a current diagnosis for this admission?: Yes Plan: Chronic. Denies any homicidal or suicidal ideation. Start low-dose mirtazapine uptitrate as needed and as tolerated.
[2019-03-08] MEDS: FAMOTIDINE 20 MG TABLET PO SCH ×2 (10:14→22:13)
[2019-03-08] MEDS: LACTULOSE SYRUP 20 GM/30 ML UDCUP PO SCH (10:14)
[2019-03-08] MEDS: INSULIN REG, HUMAN 100 UNIT/ML 3 ML VIAL (PYX) SUBCUT SCH ×2 (11:47→17:21)
[2019-03-08] MEDS: LORAZEPAM 0.5 MG TABLET PO SCH ×2 (14:59→22:13)
[2019-03-08] MEDS: PROMETHAZINE HCL INJ 25 MG/1 ML VIAL IV PRN (15:02)
[2019-03-08] MEDS: NITROFURANTOIN MONOHYD/M-CRYST 100 MG CAPSULE PO SCH (17:20)
[2019-03-08] MEDS: PATIROMER 8.4 GM SUSP PACKET PO SCH (17:20)
[2019-03-08] MEDS: ATORVASTATIN CALCIUM 40 MG TABLET PO SCH (17:20)
[2019-03-08] MEDS ORDERED: MIRTAZAPINE 15 MG TABLET PO SCH (22:00)
[2019-03-08] MEDS: INSULIN GLARGINE,HUM.REC.ANLOG 1,000 UNIT/10 ML VIAL SUBCUT SCH (22:14)
[2019-03-09] MEDS: IPRATROPIUM/ALBUTEROL 0.5-2.5 MG/3 ML AMPUL NEB SCH ×4 (02:09→19:49)
[2019-03-09 04:27] LABS: ABSOLUTE EOSINOPHILS # (AUTO) 0.3 10^3/uL (0.0-0.6); ABSOLUTE LYMPHOCYTES (AUTO) 0.9 10^3/uL (0.5-4.7); ABSOLUTE MONOCYTES (AUTO) 0.3 10^3/uL (0.1-1.4); ABSOLUTE NEUT (AUTO) 2.2 10^3/uL (1.7-8.2); BASOPHILS % (AUTO) 0.8 % (0-2); EOSINOPHILS % (AUTO) 8.6 % (0-6); HEMATOCRIT 27.3 % (36.0-47.0); HEMOGLOBIN 9.3 g/dL (12.0-15.5); LYMPHOCYTES % (AUTO) 24.6 % (13-45); MEAN CORPUSCULAR HEMOGLOBIN 31.1 pg (27.0-33.4); MEAN CORPUSCULAR HGB CONC 34.1 g/dL (32.0-36.0); MEAN CORPUSCULAR VOLUME 91 fl (80-97); MONOCYTES % (AUTO) 7.4 % (3-13); PLATELET COUNT 121 10^3/uL (150-450); RED BLOOD COUNT 2.99 10^6/uL (3.72-5.28); RED CELL DISTRIBUTION WIDTH 16.6 % (11.5-14.0); SEGMENTED NEUTROPHILS % (AUTO) 58.6 % (42-78); TOTAL CELLS COUNTED % (AUTO) 100 %; WHITE BLOOD COUNT 3.8 10^3/uL (4.0-10.5)
[2019-03-09 04:57] LABS: ANION GAP 10 (5-19); BLOOD UREA NITROGEN 40 mg/dL (7-20); CALCIUM 8.1 mg/dL (8.4-10.2); CARBON DIOXIDE 29 mmol/L (22-30); CHLORIDE 97 mmol/L (98-107); GLUCOSE 130 mg/dL (75-110); POTASSIUM 4.5 mmol/L (3.6-5.0); SODIUM 135.7 mmol/L (137-145)
[2019-03-09] MEDS: FUROSEMIDE INJ/PF 20 MG/2 ML SDV IV SCH ×2 (05:24→17:25)
[2019-03-09] MEDS: LORAZEPAM 0.5 MG TABLET PO SCH ×3 (05:25→22:45)
[2019-03-09] MEDS: LACTULOSE SYRUP 20 GM/30 ML UDCUP PO SCH (09:05)
[2019-03-09] MEDS: EZETIMIBE 10 MG TABLET PO SCH (09:05)
[2019-03-09] MEDS: METOPROLOL SUCCINATE 25 MG TAB.SR.24H PO SCH (09:05)
[2019-03-09] MEDS: ASPIRIN 81 MG TABLET, CHEWABLE PO SCH (09:05)
[2019-03-09] MEDS: CLOPIDOGREL BISULFATE 75 MG TABLET PO SCH (09:05)
[2019-03-09] MEDS: DOCUSATE SODIUM 100 MG CAPSULE PO SCH (09:06)
[2019-03-09] MEDS: LEVOFLOXACIN 250 MG TABLET PO SCH (09:06)
[2019-03-09] MEDS: FAMOTIDINE 20 MG TABLET PO SCH ×2 (09:06→22:46)
[2019-03-09] MEDS: AMLODIPINE BESYLATE 5 MG TABLET PO SCH (09:08)
[2019-03-09] MEDS: INSULIN LISPRO 100 UNIT/ML 3 ML VIAL SUBCUT SCH ×7 (09:09→23:04)
[2019-03-09] MEDS: ISOSORBIDE MONONITRATE 60 MG TAB.ER.24H PO SCH (09:09)
--- NOTE | 2019-03-09 10:36 | PDOC PROGRESS REPORT ---
Subjective Progress Note for:: 03/09/19 Subjective:: PRECIOUS BURCH is a 73 year old female past medical history of CKD stage IV nonoliguric not HD, anemia of CKD, hyperkalemia, morbid obesity, retention, CAD status post CABG in 2001 followed by 1 a stent placement in 2002, [place], hypertension, was discharged to a fci 3 days ago from [facility]. Patient comes back to ED complaining of generalized fatigue, nausea, subjective fever, nonproductive cough, chronic persistent left lower quadrant abdominal pain radiating to groin, sharp and transient sharp and twisting in nature, chronic constipation chronic back pain. In ED she was found to have hemoglobin of 7.5 down from a baseline of 8-9, potas sium of 5.9 creatinine of 1.89 down from a baseline of 2-3, troponin 0 0.084, BNP of 3270 down from 3450, UA positive for large leukocyte esterase unchanged from previous admission, chest x-ray negative for any acute abnormalities. She was given 1 g of calcium gluconate, IV Lasix hospitalist will consulted for admission. 03/05/2019. No acute events overnight. Still complaining of nausea, no vom iting, generalized fatigue, persistent left lower quadrant abdominal pain and chronic back pain with chronic constipation. Is any chest pain, shortness of breath, diarrhea. 03/05/2019. WBC 5.1. hCG 9.3 status post 2 unit transfusion. Sodium 131.8. Potassium 5.6. Creatinine 1.98 up from 1.89. Blood cultures pending. Urine culture positive for gram-positive cocci in chains. Pending sensitivity. 03/06/2019. No acute events overnight. Stating that she is feeling better today nausea is very minimum and her left lower quadrant abdominal pain is also minimum. Yesterday she had a bowel movement. Denies any fever, chills, constipation, shortness of breath, chest pain or any urinary symptoms. 03/07/2019. No acute events overnight. Nausea and fatigue has improved, patient had one episode of chest pain EKG was done which did not show any acute changes, troponin was within normal limits, denies any chest pain on my encounter. Had one bowel movement yesterday, p.o. tolerant having normal bladder movements. Wants to be transferred to another fci instead of the one that she came from. And vomiting. 03/08/2019. Patient was anxious last night otherwise no acute events, still feeling lethargic and weak, nausea and abdominal pain has improved, p.o. tolerant, last bowel movement yesterday, any fever, chills, nausea, vomiting, diarrhea, constipation or any urinary symptoms. Patient used to be living at [facility] and does not want to go back there otherwise patient could be discharged when placement is available. SBP 105-134, T-max 98.4, RR 16-20, HR 57-68, FiO2 100% on 2 L NC. I/O 77 02/3650 balance -2876. Sodium 135.7, potassium 4.9, bicarb 28, creatinine 2.24 down from 2.42, 03/09/2019. No acute events overnight, patient had a better night sleep and f eels less depressed compared to yesterday was started on low-dose mirtazapine last night, complaining of generalized weakness, persistent left lower quadrant abdominal pain, does not want to be sent to [facility] or [place]. Wants to go to another rehab. Denies any fever, chills, nausea, vomiting, diarrhea, constipation or any urinary symptoms. SBP 118-163, T-max 98.6, HR 56-68, FiO2 100% on 2 L NC. I/O 677/3250 balance -2573. Urine output 3250. WBC 3.8, Hgb 9.3, Plt 121, Na 135, K 4.5, Student Development Advisor 2.12 down from 2.24, BGL 150-222. Reason For Visit: HYPERKALEMIA,FATIGUE Physical Exam Vital Signs: Temp Pulse Resp BP Pulse Ox 98.6 F 68 18 149/63 H 100 03/09/19 08:08 03/09/19 08:08 03/09/19 08:08 03/09/19 08:08 03/09/19 08:08 Intake & Output 03/08/19 03/09/19 03/10/19 06:59 06:59 06:59 Intake Total 774 677 Output Total 3650 3250 Balance -2876 -2573 Weight 48.1 kg 45.9 kg General appearance: PRESENT: obese Head exam: PRESENT: atraumatic, normocephalic Respiratory exam: PRESENT: clear to auscultation cheli. ABSENT: rales, rhonchi, wheezes Cardiovascular exam: PRESENT: RRR. ABSENT: diastolic murmur, rubs, systolic murmur Rectal exam: PRESENT: deferred, tenderness - Left lower quadrant Neurological exam: PRESENT: alert, awake, oriented to person, oriented to place, oriented to time, oriented to situation, CN II-XII grossly intact. ABSENT: motor sensory deficit Results Laboratory Results: 03/09/19 03:31 03/09/19 03:31 03/09/19 03/09/19 03:31 03:31 WBC 3.8 L RBC 2.99 L Hgb 9.3 L Hct 27.3 L MCV 91 MCH 31.1 MCHC 34.1 RDW 16.6 H Plt Count 121 L Seg Neutrophils % 58.6 Lymphocytes % 24.6 Monocytes % 7.4 Eosinophils % 8.6 H Basophils % 0.8 Absolute Neutrophils 2.2 Absolute Lymphocytes 0.9 Absolute Monocytes 0.3 Absolute Eosinophils 0.3 Absolute Basophils 0.0 Sodium 135.7 L Potassium 4.5 Chloride 97 L Carbon Dioxide 29 Anion Gap 10 BUN 40 H Creatinine 2.12 H Est GFR ( Amer) 28 L Est GFR (Non-Af Amer) 23 L Glucose 130 H Calcium 8.1 L Magnesium 2.2 03/04/19 03/04/19 03/07/19 14:00 18:05 01:45 Creatine Kinase CK-MB (CK-2) 1.02 Troponin I 0.084 0.100 0.063 NT-Pro-B Natriuret Pep 3270 H 03/07/19 03/07/19 03/07/19 01:45 07:29 07:29 Creatine Kinase 33 36 CK-MB (CK-2) 1.15 Troponin I 0.052 NT-Pro-B Natriuret Pep 03/07/19 03/07/19 13:29 13:29 Creatine Kinase 35 CK-MB (CK-2) 1.06 Troponin I 0.044 NT-Pro-B Natriuret Pep Impressions: Chest X-Ray 03/04/19 12:09 IMPRESSION: Lungs essentially clear. Assessment and Plan - Diagnosis (1) Fatigue Is this a current diagnosis for this admission?: Yes Plan: Improving. Likely due to uremic syndrome caused by worsening CKD and UTI. Correct electrolytes as needed. CMP tomorrow. Nephrology consulted. Follow recommendations. (2) Acute on chronic renal failure Qualifiers: Is this a current diagnosis for this admission?: Yes Plan: Nonoliguric. Urine output 3250. Monitor electrolytes. Monitor volume status. Neurology consult. Creatinine back at baseline. 03/09/2019. I/O 677/3250 balance -2573. Urine output 3250. Na 135, K 4.5, Student Development Advisor 2 .12 down from 2.24 03/08/2019: Sodium 135.7, potassium 4.9, bicarb 28, creatinine 2.24 down from 2.4 2, I/O 77 02/3650 balance -2876. 03/07/2019 SBP 105-148, T-max 98.5, pulse 58-69, on 2 L NC. Na 133, K 5.4, HCO3 30, Student Development Advisor 2.42 up from 2.08. I/O 1301/2600 balance -1299 03/06/2019: Saturating 96% on 2.5 L NC FiO2 32%. Fluid balance -1299. Sodium 136.1. Potassium 5.5. Bicarb 27. Creatinine 2.80 up from 1.98, baseline 2.08. Magnesium 2.6. (3) Hyperkalemia Is this a current diagnosis for this admission?: Yes Plan: Resolved. Likely due to worsening CKD. Low potassium diet. 03/09/2019. Na 135, K 4.5, Student Development Advisor 2.12 down from 2.24, BGL 150-222. 03/08/2019: Sodium 135.7, potassium 4.9, bicarb 28, creatinine 2.24 down from 2.42 03/07/2019: Na 133, K 5.4, HCO3 30, Student Development Advisor 2.42 up from 2.08. I/O 1301/2600 balance -1299 03/06/2019: Sodium 136.1. Potassium 5.5. Bicarb 27. Creatinine 2.80 up from 1.98, baseline 2.08. 03/05/2019. Sodium 131.8. Potassium 5.6. Creatinine 1.98 up from 1.89. Continue daily lactulose, and Veltassa (4) Diabetes mellitus, type II, insulin dependent Is this a current diagnosis for this admission?: No Plan: Diabetic diet. Long-acting insulin, pre-meal insulin, sliding scale insulin, adjust meds as needed. 03/09/2019. BGL 150-222. (5) Urinary tract infection Is this a current diagnosis for this admission?: Yes Plan: Persistent chronic. Enterococcus faecalis History of UTI due to E. coli, Proteus, group B strep. UA positive for large leukocyte esterase, urine culture positive for Enterococcus faecalis sensitive to ampicillin and Macrobid resistant to quinolones Day 4/5 Macrobid (6) Right sided weakness Is this a current diagnosis for this admission?: No Plan: Due to remote CVA in 1977. Supportive measures. Fall precautions. (7) Morbid obesity with BMI of 45.0-49.9, adult Is this a current diagnosis for this admission?: No Plan: Diet and lifestyle modification. (8) Hypertension Is this a current diagnosis for this admission?: No Plan: Contorlled. 03/09/2019. SBP 118-163 03/08/2019: SBP 105-134 03/07/2019. SBP 105-148 Decrease amlodipine to 5 mg p.o. daily to avoid constipation, isosorbide mononitrate 60 mg p.o. daily, metoprolol succinate 50 mg p.o. daily. (9) CHF (congestive heart failure) Qualifiers: Heart failure type: diastolic Is this a current diagnosis for this admission?: No Plan: Diastolic heart failure. BNP on admission 3270. Up from 3450 on 02/28/2019. 2D echo from 01/29/2019. LVEF 65%. 2/4 mild to moderate diastolic dysfunction.Not acutely exacerbated based on physical examination. Cardiac diet, fluid restriction. Increase metoprolol to 50 mg p.o. daily, furosemide 20 mg IV twice daily guided by volume status and vitals. 03/09/2019. I/O 677/3250 balance -2573. Urine output 3250. 03/08/2019: I/O 774/3650 balance -2876. 03/07/2019 I/O 1301/2600 balance -1299 (10) Elevated troponin Is this a current diagnosis for this admission?: Yes Plan: Likely due to demand ischemia, in the setting of CKD and CHF exacerbation severe anemia. Denies any active chest pain. Follow troponin if elevated will call cardiology. (11) Anemia Qualifiers: Anemia type: due to chronic kidney disease Chronic kidney disease stage: stage 3 (moderate) Qualified Code(s): N18.3 - Chronic kidney disease, stage 3 (moderate); D63.1 - Anemia in chronic kidney disease Is this a current diagnosis for this admission?: No Plan: Stable. Denies any active bleeding. Hemoglobin 7.5 on admission. Status post 2 PRBC transfusion on admission. Most likely due to CKD combined with iron deficiency anemia due to GI losses. Iron panel within normal limits. Stool occult blood test positive. Surgery consulted no intervention at this point as patient is not actively bleeding. Will up with Dr. Tony, her GI specialist has been recommended next week for possible upper and lower GI endoscopy. Procrit, supplemental iron. Part of transfusion if less than 7, actively bleeding or symptomatic. H/H tomorrow. (12) Hx of coronary artery disease Is this a current diagnosis for this admission?: Yes Plan: History of CABG in 2001. PCI x1 stent in 2002. Continue aspirin, Plavix, beta-blockers, statins. (13) Depression Is this a current diagnosis for this admission?: Yes Plan: Chronic. Denies any homicidal or suicidal ideation. Started low-dose mirtazapine uptitrate as needed and as tolerated.
--- NOTE | 2019-03-09 12:27 | PDOC PROGRESS REPORT ---
Subjective Progress Note for:: 03/09/19 Subjective:: Patient tells me that she is still a bit of nauseated today but not as bad as yesterday. She is still constipated. She has some shortness of breath but better. Her fatigue is better. She continues to have very good urine output and for the last 2 days she was making more than 3 L of urine on current dose of diuretics. She got transfused 2 units of packed RBC initially. Currently she does not have any signs of active bleeding. Reason For Visit: HYPERKALEMIA,FATIGUE Physical Exam Vital Signs: Temp Pulse Resp BP Pulse Ox 98.7 F 64 20 116/43 L 99 03/09/19 11:19 03/09/19 11:19 03/09/19 11:19 03/09/19 11:19 03/09/19 11:19 Intake & Output 03/08/19 03/09/19 03/10/19 06:59 06:59 06:59 Intake Total 774 677 Output Total 3650 9470 294 Balance -2876 -2573 -625 Weight 48.1 kg 45.9 kg Exam: General appearance: PRESENT: no acute distress, cooperative, well-developed, well-nourished Head exam: PRESENT: atraumatic, normocephalic Eye exam: PRESENT: conjunctiva pale, PERRLA. ABSENT: scleral icterus Neck exam: ABSENT: JVD Respiratory exam: PRESENT: Diminished breath sounds. ABSENT: crackles, rales, rhonchi, unlabored, wheezes Cardiovascular exam: PRESENT: Regular rate rhythm ,-+S1, +S2. ABSENT: diastolic murmur, systolic murmur GI/Abdominal exam: PRESENT: normal bowel sounds, soft. Positive left upper quadrant tenderness on palpation ABSENT: guarding, mass Extremities exam: Grade 1 bilateral lower extremity improved pitting edema Neurological exam: PRESENT: alert, awake, oriented to person, place and time. Skin exam: PRESENT: dry, warm, positive pallor Cardiovascular exam: PRESENT: +S1, +S2 GI/Abdominal exam: PRESENT: normal bowel sounds, soft. ABSENT: organomegaly, tenderness Results Laboratory Results: 03/09/19 03:31 03/09/19 03:31 03/09/19 03/09/19 03:31 03:31 WBC 3.8 L RBC 2.99 L Hgb 9.3 L Hct 27.3 L MCV 91 MCH 31.1 MCHC 34.1 RDW 16.6 H Plt Count 121 L Seg Neutrophils % 58.6 Lymphocytes % 24.6 Monocytes % 7.4 Eosinophils % 8.6 H Basophils % 0.8 Absolute Neutrophils 2.2 Absolute Lymphocytes 0.9 Absolute Monocytes 0.3 Absolute Eosinophils 0.3 Absolute Basophils 0.0 Sodium 135.7 L Potassium 4.5 Chloride 97 L Carbon Dioxide 29 Anion Gap 10 BUN 40 H Creatinine 2.12 H Est GFR ( Amer) 28 L Est GFR (Non-Af Amer) 23 L Glucose 130 H Calcium 8.1 L Magnesium 2.2 03/04/19 03/04/19 03/07/19 14:00 18:05 01:45 Creatine Kinase CK-MB (CK-2) 1.02 Troponin I 0.084 0.100 0.063 NT-Pro-B Natriuret Pep 3270 H 03/07/19 03/07/19 03/07/19 01:45 07:29 07:29 Creatine Kinase 33 36 CK-MB (CK-2) 1.15 Troponin I 0.052 NT-Pro-B Natriuret Pep 03/07/19 03/07/19 13:29 13:29 Creatine Kinase 35 CK-MB (CK-2) 1.06 Troponin I 0.044 NT-Pro-B Natriuret Pep Impressions: Chest X-Ray 03/04/19 12:09 IMPRESSION: Lungs essentially clear. Assessment & Plan - Diagnosis (1) Acute on chronic renal failure Qualifiers: Is this a current diagnosis for this admission?: Yes Plan: Patient presented with some mild worsening of kidney function likely secondary to prerenal azotemia which is currently almost at baseline kidney function and continues to improve with diuresis. Patient has excellent urine output with current dose of diuretics. Continue same management. No need of any acute renal replacement therapy. (2) CKD (chronic kidney disease), stage IV Is this a current diagnosis for this admission?: Yes Plan: Almost at baseline kidney function. (3) Acute on chronic diastolic (congestive) heart failure Is this a current diagnosis for this admission?: Yes Plan: Improving with diuresis. (4) Hyperkalemia Is this a current diagnosis for this admission?: Yes Plan: Controlled on Veltassa. (5) Anemia of chronic disease Is this a current diagnosis for this admission?: Yes Plan: Status post 2 units of blood transfusion. Stool was positive for occult blood. No signs of active bleeding. Patient would need further work-up with GI and endoscopy. Patient's most recent iron indicis are within acceptable limits. I will change her Epogen to 40,000 twice a week. (6) Urinary tract infection Is this a current diagnosis for this admission?: Yes Plan: Secondary to Enterococcus faecalis. Being given nitrofurantoin. (7) Constipation Is this a current diagnosis for this admission?: Yes Plan: Patient on Linzess. (8) Depression Is this a current diagnosis for this admission?: Yes (9) Diabetes mellitus type 2 in obese Is this a current diagnosis for this admission?: Yes (10) Hypertension Is this a current diagnosis for this admission?: Yes - Time Time with patient: 15-25 minutes
[2019-03-09] MEDS: PATIROMER 8.4 GM SUSP PACKET PO SCH (17:21)
[2019-03-09] MEDS: OXYCODONE-ACETAMINOPHEN 5-325 MG TABLET PO PRN (17:24)
[2019-03-09] MEDS: ATORVASTATIN CALCIUM 40 MG TABLET PO SCH (17:24)
--- NOTE | 2019-03-09 17:53 | PDOC TRANSFER SUMMARY ---
General Admission Date/PCP: 03/04/19 15:59 DANI PANDA DO Resuscitation Status: Do Not Resuscitate - Transfer Diagnosis (1) Fatigue Is this a current diagnosis for this admission?: Yes (2) Acute on chronic renal failure Is this a current diagnosis for this admission?: Yes (3) Hyperkalemia Is this a current diagnosis for this admission?: Yes (4) Diabetes mellitus, type II, insulin dependent Is this a current diagnosis for this admission?: No (5) Urinary tract infection Is this a current diagnosis for this admission?: Yes (6) Right sided weakness Is this a current diagnosis for this admission?: No (7) Morbid obesity with BMI of 45.0-49.9, adult Is this a current diagnosis for this admission?: No (8) Hypertension Is this a current diagnosis for this admission?: Yes (9) CHF (congestive heart failure) Is this a current diagnosis for this admission?: No (10) Elevated troponin Is this a current diagnosis for this admission?: Yes (11) Anemia Is this a current diagnosis for this admission?: No (12) Hx of coronary artery disease Is this a current diagnosis for this admission?: Yes (13) Depression Is this a current diagnosis for this admission?: Yes - Transfer Medications Home Medications: Acetaminophen [Tylenol 325 mg Tablet] 650 mg PO Q6HP PRN 03/04/19 Albuterol Sulfate [Albuterol Sulfate Hfa] 2 puff IH Q8HP PRN 03/04/19 Amlodipine Besylate [Norvasc 10 mg Tablet] 10 mg PO DAILY 03/04/19 Aspirin [Aspirin 81 mg Chewable Tablet] 81 mg PO DAILY 03/04/19 Atorvastatin Calcium [Lipitor 40 mg Tablet] 40 mg PO QPM 03/04/19 Clopidogrel Bisulfate [Plavix 75 mg Tablet] 75 mg PO DAILY 03/04/19 Cyclosporine 0.05% Oph Emulsio [Restasis 0.05% Oph Emulsion Pf 0.4 ml] 1 drop OU BID 03/04/19 Diphenhydramine HCl [Benadryl 25 mg Capsule] 25 mg PO QPM 03/04/19 Epoetin Aung [Procrit Inj 40,000 Unit/1 ml Vial (Renal)] 2 ml SQ WE@0800 03/04/19 Ezetimibe [Zetia 10 mg Tablet] 10 mg PO DAILY 03/04/19 Fenofibrate Nanocrystallized [Triglide] 160 mg PO DAILY 03/04/19 Fluticasone/Salmeterol [Advair 250-50 Diskus 14 Dose/Diskus] 1 puff IH Q12 03/04/19 Furosemide [Lasix 20 mg Tablet] 20 mg PO BID 03/04/19 Gabapentin [Neurontin] 600 mg PO Q12 03/04/19 Hydroxyzine Pamoate [Vistaril 50 mg Capsule] 50 mg PO Q8HP PRN 03/04/19 Insulin Glargine,Hum.rec.anlog [Lantus Insulin 100 Unit/1 ml 10 ml] 10 unit SQ BID 03/04/19 Insulin Lispro [Humalog Insulin (Lispro) 100 unit/mL] 0 unit SQ .SLIDING SCALE 03/04/19 Isosorbide Mononitrate [Imdur 60 mg Tablet.er] 60 mg PO DAILY 03/04/19 Levalbuterol HCl [Levalbuterol Concentrate] 1.25 mg NEB RTQ6 03/04/19 Linaclotide [Linzess] 72 mcg PO DAILY 03/04/19 Losartan Potassium [Cozaar 25 mg Tablet] 25 mg PO DAILY 03/04/19 Metoprolol Succinate [Toprol Xl 25 mg Tab.sr] 25 mg PO DAILY 03/04/19 Montelukast Sodium [Singulair 10 mg Tablet] 10 mg PO QPM 03/04/19 Nitroglycerin [Nitrostat 0.4 mg (1/150 Gr) Tabs 25/Bottle] 0.4 mg PO Q5MP PRN 03/04/19 Omeprazole 40 mg PO BID 03/04/19 Ondansetron HCl [Zofran 8 mg Tablet] 8 mg PO Q4HP PRN 03/04/19 Oxycodone HCl/Acetaminophen [Percocet 5-325 mg Tablet] 1 tab PO Q6HP PRN 03/04/19 Rosuvastatin Calcium [Crestor] 40 mg PO QPM 03/04/19 Transfer Medications: Current Medications Acetaminophen (Tylenol 325 Mg Tablet) 325 mg PO Q4HP PRN PRN Reason: FOR PAIN SCALE 1-2 Stop: 04/03/19 18:26 Al Hydrox/Mg Hydrox/Simethicone (Maalox Plus Susp 30 Udcup) 30 ml PO Q6HP PRN PRN Reason: HEARTBURN Stop: 04/03/19 18:26 Albuterol/Ipratropium (Duoneb 3 Ml Ampul) 3 ml NEB RTQ6 [facility] Stop: 04/03/19 19:59 Last Admin: 03/09/19 14:06 Dose: 3 ml Documented by: Amlodipine Besylate (Norvasc 5 Mg Tablet) 5 mg PO DAILY [facility] Stop: 04/06/19 09:59 Last Admin: 03/09/19 09:08 Dose: 5 mg Documented by: Ampicillin (Princepen 500 Mg Capsule) 500 mg PO Q12 [facility] Stop: 03/16/19 21:59 Aspirin (Aspirin 81 Mg Chewable Tablet) 81 mg PO DAILY [facility] Stop: 04/04/19 09:59 Last Admin: 03/09/19 09:05 Dose: 81 mg Documented by: Atorvastatin Calcium (Lipitor 40 Mg Tablet) 40 mg PO QPM [facility] Stop: 04/04/19 17:59 Last Admin: 03/09/19 17:24 Dose: 40 mg Documented by: Clopidogrel Bisulfate (Plavix 75 Mg Tablet) 75 mg PO DAILY [facility] Stop: 04/03/19 19:59 Last Admin: 03/09/19 09:05 Dose: 75 mg Documented by: Dextrose (Dextrose Inj 50% Syringe (25 Gm/50 Ml)) 12.5 gm IV PRN PRN; Protocol PRN Reason: FOR BG 50-69 IN ALERT PATIENT Stop: 04/03/19 18:33 Dextrose (Dextrose Inj 50% Syringe (25 Gm/50 Ml)) 25 gm IV PRN PRN; Protocol PRN Reason: PER PROTOCOL Stop: 04/03/19 18:33 Docusate Sodium (Colace 100 Mg Capsule) 100 mg PO DAILY [facility] Stop: 04/04/19 09:59 Last Admin: 03/09/19 09:06 Dose: 100 mg Documented by: Ezetimibe (Zetia 10 Mg Tablet) 10 mg PO DAILY [facility] Stop: 04/05/19 09:59 Last Admin: 03/09/19 09:05 Dose: 10 mg Documented by: Epoetin Aung (Procrit Inj 40,000 Unit/1 Ml Vial (Renal)) 40,000 unit SUBCUT WESA@0800 [facility] Stop: 04/10/19 07:59 Famotidine (Pepcid 20 Mg Tablet) 20 mg PO Q12 [facility] Stop: 04/03/19 21:59 Last Admin: 03/09/19 09:06 Dose: 20 mg Documented by: Furosemide (Lasix Inj/Pf 20 Mg/2 Ml Sdv) 40 mg IV Q12A [facility] Stop: 04/05/19 17:59 Last Admin: 03/09/19 17:25 Dose: 40 mg Documented by: Glucagon (Glucagen Inj 1 Mg Vial) 1 mg IM PRN PRN; Protocol PRN Reason: Evaluate for BG < 70 Stop: 04/03/19 18:33 Glucose (Glutose 40% Gel 15 Gm Tube) 15 gm PO PRN PRN; Protocol PRN Reason: FOR BG 50-69 IN ALERT PATIENT Stop: 04/03/19 18:33 Glucose (Glutose 40% Gel 15 Gm Tube) 30 gm PO PRN PRN; Protocol PRN Reason: FOR BG < 50 IN ALERT PATIENT Stop: 04/03/19 18:33 Insulin Glargine (Lantus Insulin 100 Unit/1 Ml 10 Ml) 18 unit SUBCUT QHS [facility] Stop: 04/07/19 21:59 Last Admin: 03/08/19 22:14 Dose: Not Given Documented by: Insulin Human Lispro (Humalog Insulin 100 Unit/1 Ml 3 Ml Vial) 0 - 12 unit SUBCUT ACHS [facility]; Protocol Stop: 04/03/19 21:59 Last Admin: 03/09/19 17:22 Dose: Not Given Documented by: Insulin Human Lispro (Humalog Insulin 100 Unit/1 Ml 3 Ml Vial) 4 unit SUBCUT AC [facility]; Protocol Stop: 04/08/19 07:59 Last Admin: 03/09/19 17:22 Dose: Not Given Documented by: Isosorbide Mononitrate (Imdur 60 Mg Tablet.Er) 60 mg PO DAILY [facility] Stop: 04/05/19 09:59 Last Admin: 03/09/19 09:09 Dose: 60 mg Documented by: Lactulose (Cephulac Syrup 20 Gm/30 Ml Udcup) 20 gm PO DAILY [facility] Stop: 04/05/19 10:59 Last Admin: 03/09/19 09:05 Dose: 20 gm Documented by: Levofloxacin (Levaquin 250 Mg Tablet) 250 mg PO DAILY [facility] Stop: 03/12/19 10:59 Last Admin: 03/09/19 09:06 Dose: 250 mg Documented by: Lorazepam (Ativan 0.5 Mg Tablet) 0.25 mg PO Q8 [facility] Stop: 03/15/19 13:59 Last Admin: 03/09/19 13:29 Dose: 0.25 mg Documented by: Magnesium Hydroxide (Milk Of Magnesia 30 Ml Udcup) 30 ml PO HSP PRN PRN Reason: FOR CONSTIPATION Stop: 04/03/19 18:26 Metoprolol Succinate (Toprol Xl 25 Mg Tab.Sr) 50 mg PO DAILY [facility] Stop: 04/06/19 09:59 Last Admin: 03/09/19 09:05 Dose: 50 mg Documented by: Mirtazapine (Remeron 15 Mg Tablet) 15 mg PO QHS [facility] Stop: 04/08/19 21:59 Nitroglycerin (Nitrostat 0.4 Mg (1/150 Gr) Tabs 25/Bottle) 1 tab SL Q5MP PRN PRN Reason: FOR CHEST PAIN Stop: 04/04/19 13:41 Last Admin: 03/07/19 01:36 Dose: 1 tab Documented by: Ondansetron HCl (Zofran Odt 4 Mg Tablet) 4 mg PO Q4HP PRN PRN Reason: FOR NAUSEA/VOMITING Stop: 04/03/19 18:26 Last Admin: 03/08/19 11:47 Dose: 4 mg Documented by: Oxycodone/Acetaminophen (Percocet 5-325 Mg Tablet) 1 tab PO Q4HP PRN PRN Reason: FOR PAIN SCALE 1-3 Stop: 03/11/19 18:26 Last Admin: 03/09/19 17:24 Dose: 1 tab Documented by: Patient Own Medication (Linaclotide [Linzess]) 72 mcg PO .DAILY [facility] Stop: 04/05/19 09:59 Patiromer (Veltassa 8.4 Gm Susp Packet) 8.4 gm PO DAILY@1400 [facility] Stop: 04/05/19 13:59 Last Admin: 03/09/19 17:21 Dose: Not Given Documented by: Promethazine HCl (Phenergan Inj 25 Mg/1 Ml Vial) 6.25 mg IV Q4HP PRN PRN Reason: FOR UNRESOLVED NAUSEA/VOMITING Stop: 04/03/19 18:26 Last Admin: 03/08/19 15:02 Dose: 6.25 mg Documented by: - Allergies Allergies/Adverse Reactions: amoxicillin trihydrate [From Augmentin] Allergy (Severe, Verified 01/06/19 14:12) stomach cramps, n and v, rash butalbital [From Fiorinal] Allergy (Unknown, Verified 01/06/19 14:12) rash metformin HCl [From Glucophage] Allergy (Unknown, Verified 01/06/19 14:12) rash Potassium Clavulanate * [From Augmentin] Adverse Reaction (Unknown, Verified 01/06/19 14:12) nausea, vomit, epig pain Hospital Course Hospital Course: PRECIOUS BURCH is a 73 year old female past medical history of CKD stage IV nonoliguric not HD, anemia of CKD, hyperkalemia, morbid obesity, retention, CAD status post CABG in 2001 followed by 1 a stent placement in 2002, [place], hypertension, was discharged to a group home 3 days ago from [facility]. Patient comes back to ED complaining of generalized fatigue, nausea, subjective fever, nonproductive cough, chronic persistent left lower quadrant abdominal pain radiating to groin, sharp and transient sharp and twisting in nature, chronic constipation chronic back pain. In ED she was found to have hemoglobin of 7.5 down from a baseline of 8-9, potassium of 5.9 creatinine of 1.89 down from a baseline of 2-3, troponin 0 0.084, BNP of 3270 down from 3450, UA positive for large leukocyte esterase unchanged from previous admission, chest x-ray negative for any acute abnorma lities. She was given 1 g of calcium gluconate, IV Lasix hospitalist will consulted for admission. 03/05/2019. No acute events overnight. Still complaining of nausea, no vomiting, generalized fatigue, persistent left lower quadrant abdominal pain and chronic back pain with chronic constipation. Is any chest pain, shortness of breath, diarrhea. 03/05/2019. WBC 5.1. hCG 9.3 status post 2 unit transfusion. Sodium 131.8. Potassium 5.6. Creatinine 1.98 up from 1.89. Blood cultures pending. Urine culture positive for gram-positive cocci in chains. Pending sensitivity. 03/06/2019. No acute events overnight. Stating that she is feeling better today nausea is very minimum and her left lower quadrant abdominal pain is also minimum. Yesterday she had a bowel movement. Denies any fever, chills, constipation, shortness of breath, chest pain or any urinary symptoms. 03/07/2019. No acute events overnight. Nausea and fatigue has improved, patient had one episode of chest pain EKG was done which did not show any acute changes, troponin was within normal limits, denies any chest pain on my encounter. Had one bowel movement yesterday, p.o. tolerant having normal bladder movements. Wants to be transferred to another group home instead of the one that she came from. And vomiting. 03/08/2019. Patient was anxious last night otherwise no acute events, still feeling lethargic and weak, nausea and abdominal pain has improved, p.o. tolerant, last bowel movement yesterday, any fever, chills, nausea, vomiting, diarrhea, constipation or any urinary symptoms. Patient used to be living at [facility] and does not want to go back there otherwise patient could be discharged when placement is available. SBP 105-134, T-max 98.4, RR 16-20, HR 57-68, FiO2 100% on 2 L NC. I/O 77 02/3650 balance -2876. Sodium 135.7, potassium 4.9, bicarb 28, creatinine 2.24 down from 2.42, 03/09/2019. No acute events overnight, patient had a better night sleep and feels less depressed compared to yesterday was started on low-dose mirtazapine last night, complaining of generalized weakness, persistent left lower quadrant abdominal pain, does not want to be sent to [facility] or [facility]. Wants to go to another rehab. Denies any fever, chills, nausea, vomiting, diarrhea, constipation or any urinary symptoms. SBP 118-163, T-max 98.6, HR 56-68, FiO2 100% on 2 L NC. I/O 677/3250 balance -2573. Urine output 3250. WBC 3.8, Hgb 9.3, Plt 121, Na 135, K 4.5, Cash Management Coordinator 2.12 down from 2.24, BGL 150-222. Assessment and Plan (1) Fatigue Improving. Likely due to uremic syndrome caused by worsening CKD and UTI and anemia. Correct electrolytes as needed. Nephrology consulted. Needs to follow-up with Dr. Serra as outpatient. (2) Acute on chronic renal failure Nonoliguric. Urine output 3250. Monitor electrolytes. Monitor volume status. Neurology consult. Creatinine back at baseline. 03/09/2019. I/O 677/3250 balance -2573. Urine output 3250. Na 135, K 4.5, Cash Management Coordinator 2.12 down from 2.24 03/08/2019: Sodium 135.7, potassium 4.9, bicarb 28, creatinine 2.24 down from 2.42, I/O 77 02/3650 balance -2876. 03/07/2019 SBP 105-148, T-max 98.5, pulse 58-69, on 2 L NC. Na 133, K 5.4, HCO3 30, Cash Management Coordinator 2.42 up from 2.08. I/O 1301/2600 balance -1299 03/06/2019: Saturating 96% on 2.5 L NC FiO2 32%. Fluid balance -1299. Sodium 136.1. Potassium 5.5. Bicarb 27. Creatinine 2.80 up from 1.98, baseline 2.08. Magnesium 2.6. Allergy was consulted. Recommendations noted. Needs to follow-up with Dr. Serra as outpatient. (3) Hyperkalemia Resolved. Likely due to worsening CKD. Continue potassium diet, daily lactulose, and Veltassa 03/09/2019. Na 135, K 4.5, Cash Management Coordinator 2.12 down from 2.24, BGL 150-222. 03/08/2019: Sodium 135.7, potassium 4.9, bicarb 28, creatinine 2.24 down from 2.42 03/07/2019: Na 133, K 5.4, HCO3 30, Cash Management Coordinator 2.42 up from 2.08. I/O 1301/2600 balance -1299 03/06/2019: Sodium 136.1. Potassium 5.5. Bicarb 27. Creatinine 2.80 up from 1.98, baseline 2.08. 03/05/2019. Sodium 131.8. Potassium 5.6. Creatinine 1.98 up from 1.89. (4) Diabetes mellitus, type II, insulin dependent Diabetic diet. Long-acting insulin, pre-meal insulin, sliding scale insulin, adjust meds as needed. 03/09/2019. BGL 150-222. (5) Urinary tract infection Persistent chronic. Enterococcus faecalis History of UTI due to E. coli, Proteus, group B strep. UA positive for large leukocyte esterase, urine culture positive for Enterococcus faecalis sensitive to ampicillin and Macrobid resistant to quinolones Received 4 days of Macrobid close dosage due to chronic CKD. Was switched to ampicillin 03/09/2019. Had a conversation with pharmacy who stated that patient is not truly allergic to ampicillin but just gets upset stomach. Needs another 2 days of ampicillin to complete a course of therapy. (6) Right sided weakness Due to remote CVA in 1977. Supportive measures. Fall precautions. (7) Morbid obesity with BMI of 45.0-49.9, adult Diet and lifestyle modification. (8) Hypertension Contorlled. 03/09/2019. SBP 118-163 03/08/2019: SBP 105-134 03/07/2019. SBP 105-148 Decrease amlodipine to 5 mg p.o. daily to avoid constipation, isosorbide mononitrate 60 mg p.o. daily, metoprolol succinate 50 mg p.o. daily. (9) CHF (congestive heart failure) Diastolic heart failure. BNP on admission 3270. Up from 3450 on 02/28/2019. 2D echo from 01/29/2019. LVEF 65%. 2/ mild to moderate diastolic dysfunction.Not acutely exacerbated based on physical examination. Cardiac diet, fluid restriction. Increase metoprolol to 50 mg p.o. daily, furosemide 20 mg IV twice daily guided by volume status and vitals. 03/09/2019. I/O 677/3250 balance -2573. Urine output 3250. 03/08/2019: I/O 774/3650 balance -2876. 03/07/2019 I/O 1301/2600 balance -1299 (10) Elevated troponin Likely due to demand ischemia, in the setting of CKD and CHF exacerbation severe anemia. Denies any active chest pain. Follow troponin if elevated will call cardiology. (11) Anemia Stable. Denies any active bleeding. Hemoglobin 7.5 on admission. Status post 2 PRBC transfusion on admission. Most likely due to CKD combined with iron deficiency anemia due to GI losses. Iron panel within normal limits. Stool occult blood test positive. Surgery consulted no intervention at this point as patient is not actively bleeding. Recommendation is to follow up with Dr. Tony, her GI specialist as out patient for upper GI endoscopy and colonoscopy. One dose of Procrit was given. Started on supplemental iron. (12) Hx of coronary artery disease History of CABG in 2001. PCI x1 stent in 2002. Continue aspirin, Plavix, beta-blockers, statins. (13) Depression Chronic. Denies any homicidal or suicidal ideation. Started low-dose mirtazapine uptitrate as needed and as tolerated. Physical Exam Vital Signs: Temp Pulse Resp BP Pulse Ox 98.4 F 73 16 103/41 L 96 03/09/19 16:02 03/09/19 16:02 03/09/19 16:02 03/09/19 16:02 03/09/19 16:02 Intake & Output 03/08/19 03/09/19 03/10/19 06:59 06:59 06:59 Intake Total 774 677 Output Total 4279 2045 625 Balance -4456 -8397 -625 Weight 48.1 kg 45.9 kg General appearance: PRESENT: no acute distress, well-developed, well-nourished Respiratory exam: PRESENT: clear to auscultation cheli. ABSENT: rales, rhonchi, wheezes Cardiovascular exam: PRESENT: RRR. ABSENT: diastolic murmur, rubs, systolic murmur GI/Abdominal exam: PRESENT: normal bowel sounds, soft. ABSENT: distended, guarding, mass, organolmegaly, rebound, tenderness Extremities exam: PRESENT: full ROM. ABSENT: calf tenderness, clubbing, pedal edema Musculoskeletal exam: PRESENT: tenderness - TTP LLQ Neurological exam: PRESENT: alert, awake, oriented to person, oriented to place, oriented to time, oriented to situation, CN II-XII grossly intact. ABSENT: motor sensory deficit Results Laboratory Results: 03/09/19 03:31 03/09/19 03:31 03/09/19 03/09/19 03:31 03:31 WBC 3.8 L RBC 2.99 L Hgb 9.3 L Hct 27.3 L MCV 91 MCH 31.1 MCHC 34.1 RDW 16.6 H Plt Count 121 L Seg Neutrophils % 58.6 Lymphocytes % 24.6 Monocytes % 7.4 Eosinophils % 8.6 H Basophils % 0.8 Absolute Neutrophils 2.2 Absolute Lymphocytes 0.9 Absolute Monocytes 0.3 Absolute Eosinophils 0.3 Absolute Basophils 0.0 Sodium 135.7 L Potassium 4.5 Chloride 97 L Carbon Dioxide 29 Anion Gap 10 BUN 40 H Creatinine 2.12 H Est GFR ( Amer) 28 L Est GFR (Non-Af Amer) 23 L Glucose 130 H Calcium 8.1 L Magnesium 2.2 03/04/19 03/04/19 03/07/19 14:00 18:05 01:45 Creatine Kinase CK-MB (CK-2) 1.02 Troponin I 0.084 0.100 0.063 NT-Pro-B Natriuret Pep 3270 H 03/07/19 03/07/19 03/07/19 01:45 07:29 07:29 Creatine Kinase 33 36 CK-MB (CK-2) 1.15 Troponin I 0.052 NT-Pro-B Natriuret Pep 03/07/19 03/07/19 13:29 13:29 Creatine Kinase 35 CK-MB (CK-2) 1.06 Troponin I 0.044 NT-Pro-B Natriuret Pep Impressions: Chest X-Ray 03/04/19 12:09 IMPRESSION: Lungs essentially clear.
[2019-03-09] MEDS: MIRTAZAPINE 15 MG TABLET PO SCH (22:46)
[2019-03-09] MEDS: AMPICILLIN TRIHYD 500 MG CAPSULE PO SCH (22:48)
[2019-03-09] MEDS: INSULIN GLARGINE,HUM.REC.ANLOG 1,000 UNIT/10 ML VIAL SUBCUT SCH (23:05)
[2019-03-10] MEDS: IPRATROPIUM/ALBUTEROL 0.5-2.5 MG/3 ML AMPUL NEB SCH ×4 (01:55→20:09)
[2019-03-10 05:30] LABS: ABSOLUTE EOSINOPHILS # (AUTO) 0.3 10^3/uL (0.0-0.6); ABSOLUTE LYMPHOCYTES (AUTO) 0.8 10^3/uL (0.5-4.7); ABSOLUTE MONOCYTES (AUTO) 0.3 10^3/uL (0.1-1.4); ABSOLUTE NEUT (AUTO) 2.1 10^3/uL (1.7-8.2); BASOPHILS % (AUTO) 0.9 % (0-2); EOSINOPHILS % (AUTO) 7.6 % (0-6); HEMATOCRIT 29.9 % (36.0-47.0); HEMOGLOBIN 9.8 g/dL (12.0-15.5); LYMPHOCYTES % (AUTO) 23.7 % (13-45); MEAN CORPUSCULAR HGB CONC 32.8 g/dL (32.0-36.0); MEAN CORPUSCULAR VOLUME 92 fl (80-97); MONOCYTES % (AUTO) 8.1 % (3-13); PLATELET COUNT 135 10^3/uL (150-450); RED BLOOD COUNT 3.27 10^6/uL (3.72-5.28); RED CELL DISTRIBUTION WIDTH 16.2 % (11.5-14.0); SEGMENTED NEUTROPHILS % (AUTO) 59.7 % (42-78); TOTAL CELLS COUNTED % (AUTO) 100 %; WHITE BLOOD COUNT 3.5 10^3/uL (4.0-10.5)
[2019-03-10 05:52] LABS: ALANINE AMINOTRANSFERASE 13 U/L (9-52); ALKALINE PHOSPHATASE 95 U/L (38-126); ANION GAP 11 (5-19); ASPARTATE AMINO TRANSFERASE 22 U/L (14-36); BILIRUBIN,DIRECT 0.3 mg/dL (0.0-0.4); BILIRUBIN,TOTAL 0.5 mg/dL (0.2-1.3); BLOOD UREA NITROGEN 37 mg/dL (7-20); CALCIUM 8.2 mg/dL (8.4-10.2); CARBON DIOXIDE 29 mmol/L (22-30); CHLORIDE 99 mmol/L (98-107); GLUCOSE 119 mg/dL (75-110); POTASSIUM 4.3 mmol/L (3.6-5.0); SODIUM 138.8 mmol/L (137-145); TOTAL PROTEIN 5.6 g/dL (6.3-8.2)
[2019-03-10] MEDS: FUROSEMIDE INJ/PF 20 MG/2 ML SDV IV SCH ×2 (06:07→17:16)
[2019-03-10] MEDS: OXYCODONE-ACETAMINOPHEN 5-325 MG TABLET PO PRN ×3 (06:08→21:56)
[2019-03-10] MEDS: LORAZEPAM 0.5 MG TABLET PO SCH ×3 (06:08→21:55)
[2019-03-10] MEDS: LACTULOSE SYRUP 20 GM/30 ML UDCUP PO SCH (09:49)
[2019-03-10] MEDS: ISOSORBIDE MONONITRATE 60 MG TAB.ER.24H PO SCH (09:49)
[2019-03-10] MEDS: AMPICILLIN TRIHYD 500 MG CAPSULE PO SCH ×2 (09:49→23:23)
[2019-03-10] MEDS: LEVOFLOXACIN 250 MG TABLET PO SCH (09:49)
[2019-03-10] MEDS: INSULIN LISPRO 100 UNIT/ML 3 ML VIAL SUBCUT SCH ×7 (09:50→21:57)
[2019-03-10] MEDS: DOCUSATE SODIUM 100 MG CAPSULE PO SCH (09:50)
[2019-03-10] MEDS: CLOPIDOGREL BISULFATE 75 MG TABLET PO SCH (09:50)
[2019-03-10] MEDS: EZETIMIBE 10 MG TABLET PO SCH (09:50)
[2019-03-10] MEDS: METOPROLOL SUCCINATE 25 MG TAB.SR.24H PO SCH (09:50)
[2019-03-10] MEDS: FAMOTIDINE 20 MG TABLET PO SCH ×2 (09:50→21:57)
[2019-03-10] MEDS: AMLODIPINE BESYLATE 5 MG TABLET PO SCH (09:50)
[2019-03-10] MEDS: ASPIRIN 81 MG TABLET, CHEWABLE PO SCH (09:50)
--- NOTE | 2019-03-10 10:36 | PDOC PROGRESS REPORT ---
Subjective Progress Note for:: 03/10/19 Subjective:: Patient is doing remarkably well. She continues to produce excellent urine output and yesterday she made 4175 mL of urine. Overall she feels better. She is just awaiting placement. Reason For Visit: HYPERKALEMIA,FATIGUE Physical Exam Vital Signs: Temp Pulse Resp BP Pulse Ox 98.6 F 73 18 109/34 L 99 03/10/19 08:13 03/10/19 08:13 03/10/19 08:13 03/10/19 08:13 03/10/19 08:13 Intake & Output 03/09/19 03/10/19 03/11/19 06:59 06:59 06:59 Intake Total 677 1055 Output Total 3250 4175 Balance -2573 -3120 Weight 45.9 kg 46.3 kg Exam: General appearance: PRESENT: no acute distress, cooperative, well-developed, well-nourished Head exam: PRESENT: atraumatic, normocephalic Eye exam: PRESENT: conjunctiva pale, PERRLA. ABSENT: scleral icterus Neck exam: ABSENT: JVD Respiratory exam: PRESENT: Diminished breath sounds. ABSENT: crackles, rales, rhonchi, unlabored, wheezes Cardiovascular exam: PRESENT: Regular rate rhythm, soft-+S1, +S2. ABSENT: diastolic murmur, systolic murmur GI/Abdominal exam: PRESENT: normal bowel sounds, soft. ABSENT: guarding, mass, tenderness Extremities exam: Improved bilateral grade 1 lower extremity pitting edema Neurological exam: PRESENT: alert, awake, oriented to person, place and time. Skin exam: PRESENT: dry, warm, Cardiovascular exam: PRESENT: +S1, +S2 GI/Abdominal exam: PRESENT: normal bowel sounds, soft. ABSENT: organomegaly, tenderness Results Laboratory Results: 03/10/19 04:13 03/10/19 04:13 03/10/19 03/10/19 04:13 04:13 WBC 3.5 L RBC 3.27 L Hgb 9.8 L Hct 29.9 L MCV 92 MCH 30.0 MCHC 32.8 RDW 16.2 H Plt Count 135 L Seg Neutrophils % 59.7 Lymphocytes % 23.7 Monocytes % 8.1 Eosinophils % 7.6 H Basophils % 0.9 Absolute Neutrophils 2.1 Absolute Lymphocytes 0.8 Absolute Monocytes 0.3 Absolute Eosinophils 0.3 Absolute Basophils 0.0 Sodium 138.8 Potassium 4.3 Chloride 99 Carbon Dioxide 29 Anion Gap 11 BUN 37 H Creatinine 1.97 H Est GFR ( Amer) 30 L Est GFR (Non-Af Amer) 25 L Glucose 119 H Calcium 8.2 L Magnesium 2.1 Total Bilirubin 0.5 AST 22 ALT 13 Alkaline Phosphatase 95 Total Protein 5.6 L Albumin 3.0 L 03/05/19 04:35 Blood Blood Culture - Final NO GROWTH IN 5 DAYS 03/04/19 23:09 Blood Blood Culture - Final NO GROWTH IN 5 DAYS 03/04/19 03/04/19 03/07/19 14:00 18:05 01:45 Creatine Kinase CK-MB (CK-2) 1.02 Troponin I 0.084 0.100 0.063 NT-Pro-B Natriuret Pep 3270 H 03/07/19 03/07/19 03/07/19 01:45 07:29 07:29 Creatine Kinase 33 36 CK-MB (CK-2) 1.15 Troponin I 0.052 NT-Pro-B Natriuret Pep 03/07/19 03/07/19 13:29 13:29 Creatine Kinase 35 CK-MB (CK-2) 1.06 Troponin I 0.044 NT-Pro-B Natriuret Pep Impressions: Chest X-Ray 03/04/19 12:09 IMPRESSION: Lungs essentially clear. Assessment & Plan - Diagnosis (1) Acute on chronic renal failure Qualifiers: Is this a current diagnosis for this admission?: Yes Plan: Patient presented with some mild worsening of kidney function likely secondary to prerenal azotemia which is currently at baseline kidney function and cont inues to improve with diuresis. Patient has excellent urine output with current dose of diuretics. Continue same management. No need of any acute renal replacement therapy. From nephrology standpoint to think patient can be discharged or transferred to the facility of her choice. (2) CKD (chronic kidney disease), stage IV Is this a current diagnosis for this admission?: Yes Plan: Patient is currently back to her baseline kidney function. (3) Acute on chronic diastolic (congestive) heart failure Is this a current diagnosis for this admission?: Yes Plan: Improving with diuresis. (4) Hyperkalemia Is this a current diagnosis for this admission?: Yes Plan: Controlled on Veltassa. (5) Anemia of chronic disease Is this a current diagnosis for this admission?: Yes Plan: Status post 2 units of blood transfusion. Stool was positive for occult blood. No signs of active bleeding. Patient would need further work-up with GI and endoscopy. Patient's most recent iron indices are within acceptable limits. I changed her Procrit to 40,000 twice a week. I had the chance to speak to the [place] casino floorperson for [facility] and she is concerned about the cost of Procrit for the facility if they would have to accept her. I explained to her that the patient would definitely need Procrit upon discharge otherwise she will be running at rest for repeated blood transfusions as she had for the last month or so. Discussed with her that we give Procrit when hemoglobin is below 10 and it can be held if the hemoglobin is 10 or above. If the patient is on outpatient we usually give it in our office but if she is in the facility I think that is included as 1 of her medications to be given in the facility. Due to this unfortunately she states that they could not take the patient. The planner chief has to find a facility then that could give the patient appropriate treatment including Procrit. (6) Urinary tract infection Is this a current diagnosis for this admission?: Yes Plan: Secondary to Enterococcus faecalis. Being given nitrofurantoin. (7) Constipation Is this a current diagnosis for this admission?: Yes Plan: Patient on Linzess. (8) Depression Is this a current diagnosis for this admission?: Yes (9) Diabetes mellitus type 2 in obese Is this a current diagnosis for this admission?: Yes (10) Hypertension Is this a current diagnosis for this admission?: Yes - Time Time with patient: 15-25 minutes
[2019-03-10] MEDS: ONDANSETRON 4 MG TAB.RAPDIS PO PRN (13:23)
[2019-03-10] MEDS: PATIROMER 8.4 GM SUSP PACKET PO SCH (14:33)
[2019-03-10] MEDS: ATORVASTATIN CALCIUM 40 MG TABLET PO SCH (17:16)
--- NOTE | 2019-03-10 21:37 | PDOC PROGRESS REPORT ---
Subjective Progress Note for:: 03/10/19 Subjective:: PRECIOUS BURCH is a 73 year old female past medical history of CKD stage IV nonoliguric not HD, anemia of CKD, hyperkalemia, morbid obesity, retention, CAD status post CABG in 2001 followed by 1 a stent placement in 2002, diabetes, hypertension, was recently discharged from [facility] to a [facility]. She was admitted to the hospitalist service for generalized fatigue, UTI and constipation. The patient is awaiting placement in a SNF. Reason For Visit: HYPERKALEMIA,FATIGUE Physical Exam Vital Signs: Temp Pulse Resp BP Pulse Ox 98.0 F 62 18 122/46 L 98 03/10/19 15:01 03/10/19 20:17 03/10/19 20:17 03/10/19 15:01 03/10/19 20:17 Intake & Output 03/09/19 03/10/19 03/11/19 06:59 06:59 06:59 Intake Total 677 1055 1095 Output Total 3250 4175 2775 Balance -0396 -8910 -4650 Weight 45.9 kg 46.3 kg General appearance: PRESENT: obese Head exam: PRESENT: atraumatic Eye exam: PRESENT: conjunctiva pink, PERRLA Mouth exam: PRESENT: moist, tongue midline Neck exam: PRESENT: full ROM Respiratory exam: PRESENT: clear to auscultation cheli, symmetrical, unlabored Cardiovascular exam: PRESENT: +S1, +S2, systolic murmur Pulses: PRESENT: normal radial pulses, normal dorsalis pedis pul Vascular exam: PRESENT: pallor GI/Abdominal exam: PRESENT: soft. ABSENT: distended, tenderness Rectal exam: PRESENT: deferred Extremities exam: PRESENT: full ROM Musculoskeletal exam: PRESENT: ambulatory - with assistance, full ROM Neurological exam: PRESENT: alert, awake, oriented to person, oriented to place, oriented to time, oriented to situation Psychiatric exam: PRESENT: appropriate affect Skin exam: PRESENT: dry, intact, pallor Results Laboratory Results: 03/10/19 04:13 03/10/19 04:13 03/10/19 03/10/19 04:13 04:13 WBC 3.5 L RBC 3.27 L Hgb 9.8 L Hct 29.9 L MCV 92 MCH 30.0 MCHC 32.8 RDW 16.2 H Plt Count 135 L Seg Neutrophils % 59.7 Lymphocytes % 23.7 Monocytes % 8.1 Eosinophils % 7.6 H Basophils % 0.9 Absolute Neutrophils 2.1 Absolute Lymphocytes 0.8 Absolute Monocytes 0.3 Absolute Eosinophils 0.3 Absolute Basophils 0.0 Sodium 138.8 Potassium 4.3 Chloride 99 Carbon Dioxide 29 Anion Gap 11 BUN 37 H Creatinine 1.97 H Est GFR ( Amer) 30 L Est GFR (Non-Af Amer) 25 L Glucose 119 H Calcium 8.2 L Magnesium 2.1 Total Bilirubin 0.5 AST 22 ALT 13 Alkaline Phosphatase 95 Total Protein 5.6 L Albumin 3.0 L 03/05/19 14:06 Blood Blood Culture - Final NO GROWTH IN 5 DAYS 03/05/19 13:50 Blood Blood Culture - Final NO GROWTH IN 5 DAYS 03/05/19 04:35 Blood Blood Culture - Final NO GROWTH IN 5 DAYS 03/04/19 23:09 Blood Blood Culture - Final NO GROWTH IN 5 DAYS 03/04/19 03/04/19 03/07/19 14:00 18:05 01:45 Creatine Kinase CK-MB (CK-2) 1.02 Troponin I 0.084 0.100 0.063 NT-Pro-B Natriuret Pep 3270 H 03/07/19 03/07/19 03/07/19 01:45 07:29 07:29 Creatine Kinase 33 36 CK-MB (CK-2) 1.15 Troponin I 0.052 NT-Pro-B Natriuret Pep 03/07/19 03/07/19 13:29 13:29 Creatine Kinase 35 CK-MB (CK-2) 1.06 Troponin I 0.044 NT-Pro-B Natriuret Pep Impressions: Chest X-Ray 03/04/19 12:09 IMPRESSION: Lungs essentially clear. Status: Imported from PACS Assessment and Plan - Diagnosis (1) Fatigue Is this a current diagnosis for this admission?: Yes Plan: Improving. Likely due to uremic syndrome caused by worsening CKD, anemia and UTI. Electrolytes corrected. Nephrology consulted. Follow recommendations. (2) Acute on chronic renal failure Qualifiers: Is this a current diagnosis for this admission?: Yes Plan: Nonoliguric. Creatinine back at baseline. (3) Urinary tract infection Is this a current diagnosis for this admission?: Yes Plan: Persistent chronic. Enterococcus faecalis History of UTI due to E. coli, Proteus, group B strep. UA positive for large leukocyte esterase, urine culture positive for Enterococcus faecalis sensitive to ampicillin and Macrobid resistant to quinolones Completed treatment course of Macrobid (4) Hyperkalemia Is this a current diagnosis for this admission?: Yes Plan: Resolved. Likely due to worsening CKD. Continue daily lactulose, and Veltassa (5) Diabetes mellitus, type II, insulin dependent Is this a current diagnosis for this admission?: No Plan: PMH DM type 2 Acucheks ACHS Humalog SSI Long-acting insulin Diabetic diet (6) Right sided weakness Is this a current diagnosis for this admission?: No Plan: Due to remote CVA in 1977. Fall precautions. (7) CHF (congestive heart failure) Qualifiers: Heart failure type: diastolic Is this a current diagnosis for this admission?: No Plan: Diastolic heart failure. Without exacerbation. BNP on admission 3270. Up from 3450 on 02/28/2019. 2D echo from 01/29/2019. LVEF 65%. 2/4 mild to moderate diastolic dysfunction. Cardiac diet, fluid restriction. Increase metoprolol to 50 mg p.o. daily, furosemide 20 mg IV twice daily guided by volume status and vitals. (8) Hypertension Is this a current diagnosis for this admission?: Yes Plan: Controlled Continue amlodipine to 5 mg p.o. daily, isosorbide mononitrate 60 mg p.o. daily, metoprolol succinate 50 mg p.o. daily. (9) Anemia Qualifiers: Anemia type: due to chronic kidney disease Chronic kidney disease stage: stage 3 (moderate) Qualified Code(s): N18.3 - Chronic kidney disease, stage 3 (moderate); D63.1 - Anemia in chronic kidney disease Is this a current diagnosis for this admission?: No Plan: Stable. Denies any active bleeding. Hemoglobin 7.5 on admission. Status post 2 PRBC transfusion on admission. Most likely due to CKD combined with iron deficiency anemia due to GI losses. Iron panel within normal limits. Stool occult blood test positive. Surgery consulted no intervention at this point as patient is not actively bleeding. Follow up with Dr. Tony next week for possible upper and lower GI endoscopy. Procrit, supplemental iron. Transfuse if Hgb less than 7, actively bleeding or symptomatic. (10) Elevated troponin Is this a current diagnosis for this admission?: Yes Plan: Likely due to demand ischemia, in the setting of CKD and CHF exacerbation severe anemia. Denies any active chest pain. No longer trending (11) Depression Is this a current diagnosis for this admission?: Yes Plan: Chronic. Denies any homicidal or suicidal ideation. Started low-dose mirtazapine uptitrate as needed and as tolerated. - Time Time Spent with patient: 15-24 minutes Medications reviewed and adjusted accordingly: Yes Anticipated discharge: Home - Inpatient Certification Based on my medical assessment, after consideration of the patient's comorbidities, presenting symptoms, or acuity I expect that the services needed warrant INPATIENT care.: Yes I certify that my determination is in accordance with my understanding of Medicare's requirements for reasonable and necessary INPATIENT services [42 CFR 412.3e].: Yes Medical Necessity: Risk of Complication if Not Cared For in Hospital - Plan Summary Plan Summary: INITIALLY PLANNED TO TRANSFER TO [place] BUT FACILITY CANNOT ACCEPT PROCRIT. PHARMACY CANNOT AFFORD IT. DISCUSSED WITH DISCHARGE PLANNING, WILL NEED TO FIND NEW SNF. PATIENT AND AWARE.
[2019-03-10] MEDS: MIRTAZAPINE 15 MG TABLET PO SCH (21:55)
[2019-03-10] MEDS: INSULIN GLARGINE,HUM.REC.ANLOG 1,000 UNIT/10 ML VIAL SUBCUT SCH (23:23)
[2019-03-11] MEDS: IPRATROPIUM/ALBUTEROL 0.5-2.5 MG/3 ML AMPUL NEB SCH ×4 (02:45→20:01)
[2019-03-11] MEDS: LORAZEPAM 0.5 MG TABLET PO SCH ×3 (06:24→22:08)
[2019-03-11] MEDS: FUROSEMIDE INJ/PF 20 MG/2 ML SDV IV SCH ×2 (06:24→17:19)
[2019-03-11] MEDS: INSULIN LISPRO 100 UNIT/ML 3 ML VIAL SUBCUT SCH ×7 (07:36→22:00)
[2019-03-11] MEDS: OXYCODONE-ACETAMINOPHEN 5-325 MG TABLET PO PRN ×2 (07:43→14:46)
[2019-03-11] MEDS ORDERED: EPOETIN ALFA INJ 40000 UNIT/1 ML (RENAL) SUBCUT SCH ×2 (08:00)
[2019-03-11] MEDS: ASPIRIN 81 MG TABLET, CHEWABLE PO SCH (09:56)
[2019-03-11] MEDS: LACTULOSE SYRUP 20 GM/30 ML UDCUP PO SCH (09:56)
[2019-03-11] MEDS: AMLODIPINE BESYLATE 5 MG TABLET PO SCH (09:56)
[2019-03-11] MEDS: CLOPIDOGREL BISULFATE 75 MG TABLET PO SCH (09:57)
[2019-03-11] MEDS: DOCUSATE SODIUM 100 MG CAPSULE PO SCH (09:57)
[2019-03-11] MEDS: AMPICILLIN TRIHYD 500 MG CAPSULE PO SCH ×2 (09:57→22:16)
[2019-03-11] MEDS: LEVOFLOXACIN 250 MG TABLET PO SCH (09:57)
[2019-03-11] MEDS: ISOSORBIDE MONONITRATE 30 MG TAB.ER.24H PO SCH (09:57)
[2019-03-11] MEDS: METOPROLOL SUCCINATE 25 MG TAB.SR.24H PO SCH (09:57)
[2019-03-11] MEDS: FAMOTIDINE 20 MG TABLET PO SCH ×2 (09:57→22:08)
[2019-03-11] MEDS: EZETIMIBE 10 MG TABLET PO SCH (09:57)
[2019-03-11] MEDS ORDERED: ISOSORBIDE MONONITRATE 60 MG TAB.ER.24H PO SCH (10:00)
[2019-03-11] MEDS: PATIROMER 8.4 GM SUSP PACKET PO SCH (13:33)
[2019-03-11] MEDS: ATORVASTATIN CALCIUM 40 MG TABLET PO SCH (17:19)
--- NOTE | 2019-03-11 21:18 | PDOC PROGRESS REPORT ---
Subjective Progress Note for:: 03/11/19 Subjective:: PRECIOUS BURCH is a 73 year old female past medical history of CKD stage IV nonoliguric not HD, anemia of CKD, hyperkalemia, morbid obesity, retention, CAD status post CABG in 2001 followed by 1 a stent placement in 2002, diabetes, hypertension, was recently discharged from [facility] to a [facility]. She was admitted to the hospitalist service for generalized fatigue, UTI and constipation. The patient is awaiting placement in a SNF. Reason For Visit: HYPERKALEMIA,FATIGUE Physical Exam Vital Signs: Temp Pulse Resp BP Pulse Ox 97.8 F 60 18 143/45 H 96 03/11/19 19:56 03/11/19 20:10 03/11/19 20:10 03/11/19 19:56 03/11/19 20:10 Intake & Output 03/10/19 03/11/19 03/12/19 06:59 06:59 06:59 Intake Total 1055 1095 1581 Output Total 4175 2775 4075 Balance -3120 -8950 -3504 Weight 46.3 kg 45.2 kg General appearance: PRESENT: no acute distress, obese Head exam: PRESENT: atraumatic, normocephalic Eye exam: PRESENT: conjunctiva pink, EOMI, PERRLA. ABSENT: scleral icterus Ear exam: PRESENT: normal external ear exam Mouth exam: PRESENT: moist, tongue midline Neck exam: ABSENT: carotid bruit, JVD, lymphadenopathy, thyromegaly Respiratory exam: PRESENT: clear to auscultation cheli, decreased breath sounds - bilateral lower lobes, symmetrical, unlabored. ABSENT: rales, rhonchi, wheezes Cardiovascular exam: PRESENT: RRR. ABSENT: diastolic murmur, rubs, systolic murmur Pulses: PRESENT: normal dorsalis pedis pul Vascular exam: PRESENT: normal capillary refill GI/Abdominal exam: PRESENT: normal bowel sounds, soft. ABSENT: distended, guarding, mass, organolmegaly, rebound, tenderness Rectal exam: PRESENT: deferred Extremities exam: ABSENT: calf tenderness, clubbing, full ROM, pedal edema Musculoskeletal exam: ABSENT: ambulatory - requires a great deal of assistance. normally in rolling walker chair Neurological exam: PRESENT: alert, awake, oriented to person, oriented to place, oriented to time, oriented to situation Psychiatric exam: PRESENT: appropriate affect, normal mood. ABSENT: homicidal ideation, suicidal ideation Skin exam: PRESENT: dry, intact, warm. ABSENT: cyanosis, rash Results Laboratory Results: 03/10/19 04:13 03/10/19 04:13 03/04/19 03/04/19 03/07/19 14:00 18:05 01:45 Creatine Kinase CK-MB (CK-2) 1.02 Troponin I 0.084 0.100 0.063 NT-Pro-B Natriuret Pep 3270 H 03/07/19 03/07/19 03/07/19 01:45 07:29 07:29 Creatine Kinase 33 36 CK-MB (CK-2) 1.15 Troponin I 0.052 NT-Pro-B Natriuret Pep 03/07/19 03/07/19 13:29 13:29 Creatine Kinase 35 CK-MB (CK-2) 1.06 Troponin I 0.044 NT-Pro-B Natriuret Pep Impressions: Chest X-Ray 03/04/19 12:09 IMPRESSION: Lungs essentially clear. Status: Imported from PACS Assessment and Plan - Diagnosis (1) Fatigue Is this a current diagnosis for this admission?: Yes Plan: Improving. Likely due to uremic syndrome caused by worsening CKD, anemia and UTI. Electrolytes corrected. Nephrology consulted. Follow recommendations. (2) Acute on chronic renal failure Qualifiers: Is this a current diagnosis for this admission?: Yes Plan: Nonoliguric. Creatinine back at baseline. (3) Urinary tract infection Is this a current diagnosis for this admission?: Yes Plan: Persistent chronic. Enterococcus faecalis History of UTI due to E. coli, Proteus, group B strep. UA positive for large leukocyte esterase, urine culture positive for Enterococcus faecalis sensitive to ampicillin and Macrobid resistant to quinolones Completed treatment course of Macrobid (4) Hyperkalemia Is this a current diagnosis for this admission?: Yes Plan: Resolved. Likely due to worsening CKD. Continue daily lactulose, and Veltassa (5) Diabetes mellitus, type II, insulin dependent Is this a current diagnosis for this admission?: No Plan: PMH DM type 2 Acucheks ACHS Humalog SSI Long-acting insulin Diabetic diet (6) Right sided weakness Is this a current diagnosis for this admission?: No Plan: Due to remote CVA in 1977. Fall precautions. (7) CHF (congestive heart failure) Qualifiers: Heart failure type: diastolic Is this a current diagnosis for this admission?: No Plan: Diastolic heart failure. Without exacerbation. BNP on admission 3270. Up from 3450 on 02/28/2019. 2D echo from 01/29/2019. LVEF 65%. 2/4 mild to moderate diastolic dysfunction. Cardiac diet, fluid restriction. Increase metoprolol to 50 mg p.o. daily, furosemide 20 mg IV twice daily guided by volume status and vitals. (8) Hypertension Is this a current diagnosis for this admission?: Yes Plan: Controlled Continue amlodipine to 5 mg p.o. daily, isosorbide mononitrate 60 mg p.o. daily, metoprolol succinate 50 mg p.o. daily. (9) Anemia Qualifiers: Anemia type: due to chronic kidney disease Chronic kidney disease stage: stage 3 (moderate) Qualified Code(s): N18.3 - Chronic kidney disease, stage 3 (moderate); D63.1 - Anemia in chronic kidney disease Is this a current diagnosis for this admission?: No Plan: Stable. Denies any active bleeding. Hemoglobin 7.5 on admission. Status post 2 PRBC transfusion on admission. Most likely due to CKD combined with iron deficiency anemia due to GI losses. Iron panel within normal limits. Stool occult blood test positive. Surgery consulted no intervention at this point as patient is not actively bleeding. Follow up with Dr. Tony next week for possible upper and lower GI endoscopy. Procrit, supplemental iron. Transfuse if Hgb less than 7, actively bleeding or symptomatic. (10) Elevated troponin Is this a current diagnosis for this admission?: Yes Plan: Likely due to demand ischemia, in the setting of CKD and CHF exacerbation severe anemia. Denies any active chest pain. No longer trending (11) Depression Is this a current diagnosis for this admission?: Yes Plan: Chronic. Denies any homicidal or suicidal ideation. Started low-dose mirtazapine uptitrate as needed and as tolerated. - Time Time Spent with patient: 15-24 minutes Medications reviewed and adjusted accordingly: Yes Anticipated discharge: SNF Within: within 48 hours - Inpatient Certification Based on my medical assessment, after consideration of the patient's comorbidities, presenting symptoms, or acuity I expect that the services needed warrant INPATIENT care.: Yes I certify that my determination is in accordance with my understanding of Medicare's requirements for reasonable and necessary INPATIENT services [42 CFR 412.3e].: Yes Medical Necessity: Risk of Complication if Not Cared For in Hospital
[2019-03-11] MEDS: MIRTAZAPINE 15 MG TABLET PO SCH (22:11)
[2019-03-11] MEDS: INSULIN GLARGINE,HUM.REC.ANLOG 1,000 UNIT/10 ML VIAL SUBCUT SCH (22:13)
[2019-03-12] MEDS: IPRATROPIUM/ALBUTEROL 0.5-2.5 MG/3 ML AMPUL NEB SCH ×3 (01:55→13:17)
[2019-03-12] MEDS: FUROSEMIDE INJ/PF 20 MG/2 ML SDV IV SCH ×2 (05:47→18:00)
[2019-03-12] MEDS: LORAZEPAM 0.5 MG TABLET PO SCH ×2 (05:48→13:19)
[2019-03-12] MEDS: INSULIN LISPRO 100 UNIT/ML 3 ML VIAL SUBCUT SCH ×7 (07:48→16:53)
[2019-03-12] MEDS: ASPIRIN 81 MG TABLET, CHEWABLE PO SCH (09:10)
[2019-03-12] MEDS: DOCUSATE SODIUM 100 MG CAPSULE PO SCH (09:10)
[2019-03-12] MEDS: LEVOFLOXACIN 250 MG TABLET PO SCH (09:10)
[2019-03-12] MEDS: LACTULOSE SYRUP 20 GM/30 ML UDCUP PO SCH (09:10)
[2019-03-12] MEDS: CLOPIDOGREL BISULFATE 75 MG TABLET PO SCH (09:10)
[2019-03-12] MEDS: EZETIMIBE 10 MG TABLET PO SCH (09:10)
[2019-03-12] MEDS: ISOSORBIDE MONONITRATE 30 MG TAB.ER.24H PO SCH (09:10)
[2019-03-12] MEDS: AMLODIPINE BESYLATE 5 MG TABLET PO SCH (09:11)
[2019-03-12] MEDS: FAMOTIDINE 20 MG TABLET PO SCH (09:11)
[2019-03-12] MEDS: METOPROLOL SUCCINATE 25 MG TAB.SR.24H PO SCH (09:11)
[2019-03-12] MEDS: AMPICILLIN TRIHYD 500 MG CAPSULE PO SCH (10:25)
[2019-03-12] MEDS: OXYCODONE-ACETAMINOPHEN 5-325 MG TABLET PO PRN ×2 (10:25→14:59)
[2019-03-12 15:20] VITALS: BP 142/98
[2019-03-12] MEDS ORDERED: PATIROMER 8.4 GM SUSP PACKET PO SCH (17:00)
[2019-03-12] MEDS ORDERED: ATORVASTATIN CALCIUM 40 MG TABLET PO SCH (22:00)
== END 2019-03-12 18:40 | disposition home health service (06) | DRG 292 ==
LOC: ER 11:45 → EH 15:59 → UNDOADMIN 15:59 → 3N 19:05
PROVIDERS: ADMIT Internal Medicine; ATTEND Internal Medicine
PROC: 30233N1 Transfusion of Nonautologous Red Blood Cells into Peripheral Vein, Percutaneous Approach (ICD-10-PCS; 2019-03-04)
PROC: 30233N1 Transfusion of Nonautologous Red Blood Cells into Peripheral Vein, Percutaneous Approach (ICD-10-PCS; principal; 2019-03-05)
DX: I13.0 Hypertensive heart and chronic kidney disease with heart failure and stage 1 through stage 4 chronic kidney disease, or unspecified chronic kidney disease (principal); N18.4 Chronic kidney disease, stage 4 (severe); I69.351 Hemiplegia and hemiparesis following cerebral infarction affecting right dominant side; Z68.42 Body mass index [BMI] 45.0-49.9, adult; N39.0 Urinary tract infection, site not specified; N17.9 Acute kidney failure, unspecified; I50.32 Chronic diastolic (congestive) heart failure; D63.1 Anemia in chronic kidney disease; J44.9 Chronic obstructive pulmonary disease, unspecified; E87.5 Hyperkalemia; R06.81 Apnea, not elsewhere classified; E11.22 Type 2 diabetes mellitus with diabetic chronic kidney disease; E66.01 Morbid (severe) obesity due to excess calories; R53.83 Other fatigue; Z66 Do not resuscitate; I25.10 Atherosclerotic heart disease of native coronary artery without angina pectoris; F32.9 Major depressive disorder, single episode, unspecified; K59.09 Other constipation; M54.9 Dorsalgia, unspecified; G89.29 Other chronic pain; B95.2 Enterococcus as the cause of diseases classified elsewhere; R19.5 Other fecal abnormalities; E78.5 Hyperlipidemia, unspecified; M19.90 Unspecified osteoarthritis, unspecified site; D50.0 Iron deficiency anemia secondary to blood loss (chronic); Z79.82 Long term (current) use of aspirin; Z79.02 Long term (current) use of antithrombotics/antiplatelets; Z79.4 Long term (current) use of insulin; Z88.6 Allergy status to analgesic agent; Z88.0 Allergy status to penicillin; Z88.8 Allergy status to other drugs, medicaments and biological substances; Z95.1 Presence of aortocoronary bypass graft; Z95.5 Presence of coronary angioplasty implant and graft; I25.2 Old myocardial infarction; Z59.9 Problem related to housing and economic circumstances, unspecified; Z83.3 Family history of diabetes mellitus; Z84.1 Family history of disorders of kidney and ureter; Z83.6 Family history of other diseases of the respiratory system; Z87.440 Personal history of urinary (tract) infections
CPT/HCPCS: 36415; 36430; 71045; 80048; 80053; 81001; 82272; 82550; 82553; 82607; 82728; 82746; 82962; 83540; 83550; 83735; 83880; 84484; 85025; 85045; 85610; 85730; 86850; 86870; 86900; 86901; 86902; 86920; 86922; 87040; 87086; 87088; 87186; 93005; 93010; 99285; J0610; J1815; J1940; J1956; J2550; J3490; J7620; J8499; P9016; Q4081; S0119

== ENCOUNTER 2019-03-18 09:46 | Inpatient (IN) | payer MEDICARE, MEDICAID ==
--- NOTE | 2019-03-18 10:45 | RADIOLOGY REPORT (SQ) ---
EXAM DESCRIPTION: CHEST SINGLE VIEW COMPLETED DATE/TIME: 03/18/2019 10:34 am REASON FOR STUDY: SOB; home O2; general weakness. COMPARISON: 03/04/2019 EXAM PARAMETERS: NUMBER OF VIEWS: One view. TECHNIQUE: Single frontal radiographic view of the chest acquired. RADIATION DOSE: NA LIMITATIONS: None. FINDINGS: LUNGS AND PLEURA: No focal airspace disease, pleural effusion or pneumothorax. Unchanged elevation of the right hemidiaphragm. MEDIASTINUM AND HILAR STRUCTURES: Stable. HEART AND VASCULAR STRUCTURES: Prior median sternotomy and CABG. Enlarged cardiac silhouette, stable . BONES: Median sternotomy changes. No acute findings. HARDWARE: CABG hardware. OTHER: Prior cholecystectomy. IMPRESSION: Stable enlarged cardiac silhouette. Otherwise, no evidence of acute cardiopulmonary pro cess. TECHNICAL DOCUMENTATION: JOB ID: [id number] [employer]- All Rights Reserved Reading location - IP/workstation name: [email or web address]
[2019-03-18 10:49] LABS: ABSOLUTE EOSINOPHILS # (AUTO) 0.3 10^3/uL (0.0-0.6); ABSOLUTE LYMPHOCYTES (AUTO) 1.1 10^3/uL (0.5-4.7); ABSOLUTE MONOCYTES (AUTO) 0.6 10^3/uL (0.1-1.4); BASOPHILS % (AUTO) 0.4 % (0-2); EOSINOPHILS % (AUTO) 4.3 % (0-6); HEMATOCRIT 29.5 % (36.0-47.0); HEMOGLOBIN 9.9 g/dL (12.0-15.5); LYMPHOCYTES % (AUTO) 18.6 % (13-45); MEAN CORPUSCULAR HEMOGLOBIN 29.8 pg (27.0-33.4); MEAN CORPUSCULAR HGB CONC 33.4 g/dL (32.0-36.0); MEAN CORPUSCULAR VOLUME 89 fl (80-97); MONOCYTES % (AUTO) 10.4 % (3-13); PLATELET COUNT 188 10^3/uL (150-450); RED BLOOD COUNT 3.31 10^6/uL (3.72-5.28); RED CELL DISTRIBUTION WIDTH 15.9 % (11.5-14.0); SEGMENTED NEUTROPHILS % (AUTO) 66.3 % (42-78); TOTAL CELLS COUNTED % (AUTO) 100 %; WHITE BLOOD COUNT 6.1 10^3/uL (4.0-10.5)
[2019-03-18 10:53] LABS: INTERNATIONAL RATION (INR) 1.05; PROTHROMBIN TIME 14.2 SEC (11.4-15.4)
--- NOTE | 2019-03-18 11:03 | ER Document Report ---
ED General - General Chief Complaint: General Weakness Stated Complaint: WEAKNESS Time Seen by Provider: 03/18/19 10:51 Primary Care Provider: DANI PANDA DO [Primary Care Provider] - Follow up as needed Notes: Patient is complaining of weakness and feeling very tired. She was just hospitalized at [facility] for similar symptoms and went home 6 days ago. She was in the hospital about a week on that visit. She says she has kidney failure. Says she is having some shortness of breath. Some burning with urination. Has had some fever off and on, most recent was a couple of days ago. Says she has not produced hardly any urine at all for the past 3 days. Burning with urination is present. Says the urine is dark, but no blood seen. Patient has kidney failure. They have had some discussions about dialysis but do not feel she needs to be on it yet. She was supposed to get a an injection of Procrit at Dr. Serra's office today. Patient also has a history of insulin-dependent diabetes, hypertension, congestive heart failure, coronary stent, renal failure, four strokes, coronary bypass surgery, appendectomy, hysterectomy, cholecystectomy, , and removal of ovarian cancer about a year ago. TRAVEL OUTSIDE OF THE [place] IN LAST 30 DAYS: No - Related Data Allergies/Adverse Reactions: amoxicillin trihydrate [From Augmentin] Allergy (Severe, Verified 01/06/19 14:12) stomach cramps, n and v, rash butalbital [From Fiorinal] Allergy (Unknown, Verified 01/06/19 14:12) rash metformin HCl [From Glucophage] Allergy (Unknown, Verified 01/06/19 14:12) rash Potassium Clavulanate * [From Augmentin] Adverse Reaction (Unknown, Verified 01/06/19 14:12) nausea, vomit, epig pain Past Medical History - Social History Smoking Status: Unknown if Ever Smoked Family History: CAD, COPD, DM, Hypertension, Malignancy, Other - Kidney disease Patient has suicidal ideation: No Patient has homicidal ideation: No - Past Medical History Cardiac Medical History: Reports: Hx Congestive Heart Failure, Hx Coronary Artery Disease - BYPASS 2001, Hx Heart Attack, Hx Hypercholesterolemia, Hx Hypertension Denies: Hx Atrial Fibrillation, Hx DVT, Hx Pulmonary Embolism Pulmonary Medical History: Reports: Hx Asthma, Hx Bronchitis, Hx COPD, Hx Pneumonia, Hx Respiratory Failure, Hx Sleep Apnea - no cpap insurance does not cover Denies: Hx Tuberculosis Neurological Medical History: Reports: Hx Cerebrovascular Accident - X4. Denies: Hx Seizures Endocrine Medical History: Reports: Hx Diabetes Mellitus Type 2 - DX [place] 1994. Denies: Hx Diabetes Mellitus Type 1, Hx Hyperthyroidism, Hx Hypothyroidism Renal/ Medical History: Reports: Hx End Stage Renal Disease, Hx Kidney Stones. Denies: Hx Peritoneal Dialysis GI Medical History: Reports: Hx Ulcer. Denies: Hx Cirrhosis, Hx Gastroesophageal Reflux Disease, Hx Hepatitis, Hx Pancreatitis Musculoskeletal Medical History: Reports Hx Arthritis, Denies Hx Gout, Denies Hx Multiple Sclerosis, Denies Hx Systemic Lupus Erythematosus Skin Medical History: Denies Hx Eczema, Denies Hx Psoriasis Psychiatric Medical History: Reports: Hx Depression Denies: Hx Bipolar Disorder, Hx Schizophrenia Infectious Medical History: Denies: Hx Hepatitis Past Surgical History: Reports: Hx Cardiac Catheterization, Hx Section, Hx Cholecystectomy, Hx Coronary Stent, Hx Gastric Bypass Surgery - 2001, Hx Gynecologic Surgery, Hx Hysterectomy, Hx Open Heart Surgery - 2001 TRIPLE BYPASS, Hx Rectal Surgery, Hx Tubal Ligation - Immunizations Hx Diphtheria, Pertussis, Tetanus Vaccination: No Hx Pneumococcal Vaccination: 11/11/14 Review of Systems - Review of Systems Notes: REVIEW OF SYSTEMS: CONSTITUTIONAL : Denies fever. Feels generally weak and tired. EENT: Denies eye, ear, nose or mouth or throat pain or other symptoms. CARDIOVASCULAR: Denies chest pain. RESPIRATORY: Denies cough, chest congestion, or shortness of breath. GASTROINTESTINAL: Denies nausea, vomiting, or diarrhea. Feels her abdomen is distended.. Has been told she has fluid in her abdomen. GENITOURINARY: Patient says she has not passed any urine since Saturday. MUSCULOSKELETAL: Denies back or neck pain. Denies joint pain or swelling. SKIN: Denies rash or skin lesions. NEUROLOGICAL: Denies LOC or altered mental status. Denies headache. Denies sensory loss or motor deficits. ALL OTHER SYSTEMS REVIEWED AND NEGATIVE. Physical Exam - Vital signs Vitals: Temp Pulse Resp BP Pulse Ox 97.7 F 59 L 19 107/51 L 92 03/18/19 09:46 03/18/19 09:46 03/18/19 09:46 03/18/19 09:46 03/18/19 09:46 Interpretation: Normal. No: Febrile Notes: PHYSICAL EXAMINATION: GENERAL: Well-appearing, in no acute distress. HEAD: Atraumatic, normocephalic. EYES: Pupils equal round and reactive to light, extraocular movements intact. ENT: oropharynx clear without exudates. Moist mucous membranes. NECK: Normal range of motion, supple. LUNGS: Breath sounds clear and equal bilaterally. HEART: Regular rate and rhythm without murmurs. Heart rate in the upper 40s. ABDOMEN: Soft, seems distended. Patient says that she was told that she had fluid in her abdomen. Percusses to sound like fluid in the abdomen to me, as well. No guarding or rebound. No masses. No bruits heard. BACK: No tenderness throughout entire back. EXTREMITIES: Normal range of motion without pain. Edema present. Negative Homans bilaterally. NEUROLOGICAL: Normal speech, gait not tested. Normal sensory, motor, and reflex exams. Awake, alert, and oriented x3. PSYCH: Normal mood, normal affect. SKIN: Warm, dry, no rashes. Course - Re-evaluation Re-evalutation: 03/18/19 13:40 Rivera catheter inserted and about 500 cc of urine obtained. After that, did appear there was some urine flowing out of the tubing for the Rivera into the bag. Labs show low sodium and chloride and potassium of 3.9. BUN is 63 and creatinine is 4.6. A week ago, all of these tests were essentially normal except for a creatinine of 1.9. Patient was started on IV normal saline and received a liter IV. She was also given glucose and insulin and calcium gluconate and sodium bicarb to lower her potassium. Nurses brought to my attention that the patient's heart rate had dropped down into the upper 30s. When I went to her room, her heart rate was in the low 40s. Her blood pressure has recently dropped as low as in the 90s and into the upper 80s. After the liter of saline, her systolic blood pressure is 105. Discussed the case with Dr. Serra and then with Dr. Steinberg and then with the hospitalist. Patient will be admitted to [facility]. - Vital Signs Vital signs: Temp Pulse Resp BP Pulse Ox 97.7 F 59 L 12 104/68 100 03/18/19 09:46 03/18/19 09:46 03/18/19 13:32 03/18/19 13:32 03/18/19 13:32 - Laboratory Result Diagrams: 03/18/19 10:10 03/18/19 10:10 Laboratory results interpreted by me: 03/18/19 03/18/19 10:10 10:10 RBC 3.31 L Hgb 9.9 L Hct 29.5 L RDW 15.9 H Sodium 126.7 L Potassium 5.9 H Chloride 90 L BUN 63 H Creatinine 4.63 H Est GFR ( Amer) 11 L Est GFR (Non-Af Amer) 9 L Glucose 153 H Calcium 7.7 L Direct Bilirubin 0.5 H Total Protein 5.7 L Albumin 3.0 L - Diagnostic Test Radiology results interpreted by me: 03/18/19 11:06 Chest x-ray shows stable cardiomegaly. No infiltrates. - EKG Interpretation by Me EKG shows normal: Sinus rhythm - At 49 bpm. Rate: Bradycardia Additional EKG results interpreted by me: 03/18/19 11:08 EKG shows poor R wave progression, consistent with old heart attack. Critical Care Note - Critical Care Note Total time excluding time spent on procedures (mins): 45 Discharge - Discharge Clinical Impression: Acute kidney injury (nontraumatic), Dehydration, Hyperkalemia, Acute renal insufficiency, Hypotension, Bradycardia Condition: Serious Disposition: ADMITTED INPATIENT Admitting Provider: Zahra (Hospitalist) Unit Admitted: IMCU Referrals: DANI PANDA DO [Primary Care Provider] - Follow up as needed
[2019-03-18] MEDS ORDERED: NORMAL SALINE 1000 ML 1,000 ML IV ONE ×2 (11:04→14:52)
[2019-03-18 11:07] LABS: ALANINE AMINOTRANSFERASE 23 U/L (9-52); ALKALINE PHOSPHATASE 78 U/L (38-126); ANION GAP 13 (5-19); ASPARTATE AMINO TRANSFERASE 23 U/L (14-36); BILIRUBIN,DIRECT 0.5 mg/dL (0.0-0.4); BILIRUBIN,TOTAL 0.9 mg/dL (0.2-1.3); BLOOD UREA NITROGEN 63 mg/dL (7-20); CALCIUM 7.7 mg/dL (8.4-10.2); CARBON DIOXIDE 24 mmol/L (22-30); CHLORIDE 90 mmol/L (98-107); GLUCOSE 153 mg/dL (75-110); POTASSIUM 5.9 mmol/L (3.6-5.0); SODIUM 126.7 mmol/L (137-145); TOTAL PROTEIN 5.7 g/dL (6.3-8.2)
[2019-03-18 11:36] LABS: APPEARANCE,URINE CLEAR; BILIRUBIN,URINE NEGATIVE (NEGATIVE); COLOR,URINE YELLOW; GLUCOSE, URINE NEGATIVE (NEGATIVE); KETONES,URINE NEGATIVE (NEGATIVE); LEUKOCYTE ESTERASE,URINE NEGATIVE (NEGATIVE); NITRITE,URINE NEGATIVE (NEGATIVE); PROTEIN,URINE NEGATIVE (NEGATIVE); URINE SPECIFIC GRAVITY 1.012; UROBILINOGEN,URINE NEGATIVE mg/dL (<2.0)
[2019-03-18] MEDS ORDERED: INSULIN REG, HUMAN 100 UNIT/ML 3 ML VIAL (PYX) IV ONE (12:35)
[2019-03-18] MEDS ORDERED: DEXTROSE 50%-WATER 25 GM/50 ML DISP.SYRIN IV ONE (12:35)
[2019-03-18] MEDS ORDERED: SODIUM BICARBONATE 8.4% INJ 50 MEQ/50 ML DISP.SYRIN IV ONE (12:37)
[2019-03-18] MEDS ORDERED: CALCIUM GLUCONATE 1000 MG/10 ML INJ IV ONE (12:41)
[2019-03-18] MEDS ORDERED: SODIUM BICARBONATE 8.4% INJ 50 MEQ/50 ML DISP.SYRIN ONE (13:12)
--- NOTE | 2019-03-18 15:47 | PDOC H&P ---
History of Present Illness Admission Date/PCP: 03/18/19 15:00 DANI PANDA DO History of Present Illness: PRECIOUS BURCH is a 73 year old female past medical history of CKD stage IV nonoliguric not HD, anemia of CKD, hyperkalemia, morbid obesity, retention, CAD status post CABG in 2001 followed by 1 a stent placement in 2002, diabetes and hypertension who was admitted here at [facility] on 03/04/2019 for hyperkalemia, fatigue, acute on chronic renal failure, UTI and was transferred to long-term on 03/09/2019. During last hospitalization patient wanted to be to be transferred a rehab other than [facility] and [place] but patient telling me today that she was not accepted because of the fact that she needed Procrit administration and they could not afford it and was sent home instead. Patient tells me that she is agreeable to be transferred to [facility] if needed. Patient states that she has been compliant with her medication has not been able to follow-up with her PCP, GI and neurologist due to being sick. Patient was doing fine post hospitalization however she has been having progressive weakness, dizziness, increased abdominal girth, persistent left lower quadrant abdominal pain, nausea and anorexia. She had been having normal bowel movement however she has noticed that her urine output has decreased significantly. Denies any shortness of breath, chest pain, vomiting, diarrhea, constipation. In ED CXR was stable, but she was found to have a sodium of 126.7, potassium 5.9, bicarb 24, creatinine 4.63 up from 1.97 on 03/10/2019. Baseline creatinine 1.8. WBC 6.1, Hgb 9.9 and platelets 188. EKG sinus rhythm negative for peaked T waves. SBP 84/48 recovered to 110/51 after receiving 2 L of IV fluids. In ED she was started on hyperkalemia protocol and IV resuscitation and hospitalist consulted for admission. Past Medical History Cardiac Medical History: Reports: Congestive Heart Failure, Coronary Artery Disease - BYPASS 2001, Myocardial Infarction, Hyperlipidema, Hypertension Denies: Atrial Fibrillation, DVT, Pulmonary Embolism Pulmonary Medical History: Reports: Asthma, Bronchitis, Chronic Obstructive Pulmonary Disease (COPD), Pneumonia, Respiratory Failure, Sleep Apnea - no cpap insurance does not cover Denies: Tuberculosis Neurological Medical History: Denies: Seizures Endocrine Medical History: Reports: Diabetes Mellitus Type 2 - DX [place] 1994 Denies: Diabetes Mellitus Type 1, Hyperthyroidism, Hypothyroidism Renal/ Medical History: Reports: End Stage Renal Disease GI Medical History: Denies: Cirrhosis, Gastroesophageal Reflux Disease, Hepatitis Musculoskeltal Medical History: Reports: Arthritis Denies: Gout Skin Medical History: Denies: Eczema, Psoriasis Psychiatric Medical History: Reports: Depression Denies: Bipolar Disorder Hematology: Reports: Anemia, Bleeding Tendencies Denies: Hemophilia, Sickle Cell Disease Past Surgical History Past Surgical History: Reports: Cardiac Catheterization, Section, Cholecystectomy, Coronary Stent, Gastric Bypass Surgery - 2001, Hysterectomy, Tubal Ligation Denies: Amputation Social History Smoking Status: Unknown if Ever Smoked Frequency of Alcohol Use: None Hx Recreational Drug Use: No Drugs: None Hx Prescription Drug Abuse: No Family History Family History: CAD, COPD, DM, Hypertension, Malignancy, Other - Kidney disease Parental Family History Reviewed: Yes Children Family History Reviewed: Yes Sibling(s) Family History Reviewed.: Yes Medication/Allergy Home Medications: RX: Acetaminophen [Tylenol 325 mg Tablet] 650 mg PO Q6HP PRN 03/04/19 RX: Albuterol Sulfate [Albuterol Sulfate Hfa] 2 puff IH Q8HP PRN 03/04/19 RX: Aspirin [Aspirin 81 mg Chewable Tablet] 81 mg PO DAILY 03/04/19 RX: Atorvastatin Calcium [Lipitor 40 mg Tablet] 40 mg PO QPM 03/04/19 RX: Clopidogrel Bisulfate [Plavix 75 mg Tablet] 75 mg PO DAILY 03/04/19 RX: Cyclosporine 0.05% Oph Emulsio [Restasis 0.05% Oph Emulsion Pf 0.4 ml] 1 drop OU BID 03/04/19 RX: Diphenhydramine HCl [Benadryl 25 mg Capsule] 25 mg PO QPM 03/04/19 RX: Epoetin Aung [Procrit Inj 40,000 Unit/1 ml Vial (Renal)] 2 ml SQ WE@0800 03/04/19 RX: Ezetimibe [Zetia 10 mg Tablet] 10 mg PO DAILY 03/04/19 RX: Fenofibrate Nanocrystallized [Triglide] 160 mg PO DAILY 03/04/19 RX: Fluticasone/Salmeterol [Advair 250-50 Diskus 14 Dose/Diskus] 1 puff IH Q12 03/04/19 RX: Furosemide [Lasix 20 mg Tablet] 20 mg PO BID 03/04/19 RX: Gabapentin [Neurontin] 600 mg PO Q12 03/04/19 RX: Hydroxyzine Pamoate [Vistaril 50 mg Capsule] 50 mg PO Q8HP PRN 03/04/19 RX: Insulin Lispro [Humalog Insulin (Lispro) 100 unit/mL] 0 unit SQ .SLIDING SCALE 03/04/19 RX: Levalbuterol HCl [Levalbuterol Concentrate] 1.25 mg NEB RTQ6 03/04/19 RX: Linaclotide [Linzess] 72 mcg PO DAILY 03/04/19 RX: Losartan Potassium [Cozaar 25 mg Tablet] 25 mg PO DAILY 03/04/19 RX: Montelukast Sodium [Singulair 10 mg Tablet] 10 mg PO QPM 03/04/19 RX: Nitroglycerin [Nitrostat 0.4 mg (1/150 Gr) Tabs 25/Bottle] 0.4 mg PO Q5MP PRN 03/04/19 RX: Omeprazole 40 mg PO BID 03/04/19 RX: Ondansetron HCl [Zofran 8 mg Tablet] 8 mg PO Q4HP PRN 03/04/19 RX: Oxycodone HCl/Acetaminophen [Percocet 5-325 mg Tablet] 1 tab PO Q6HP PRN 03/04/19 RX: Rosuvastatin Calcium [Crestor] 40 mg PO QPM 03/04/19 RX: Amlodipine Besylate [Norvasc 5 mg Tablet] 5 mg PO DAILY #30 tablet 03/12/19 RX: Insulin Glargine,Hum.rec.anlog [Lantus Insulin 100 Unit/1 ml 10 ml] 18 unit SUBCUT QHS #1 bottle 03/12/19 RX: Isosorbide Mononitrate [Imdur 30 mg Tablet.er] 30 mg PO DAILY #30 tab.er.24h 03/12/19 RX: Metoprolol Succinate [Toprol Xl 25 mg Tab.sr] 50 mg PO DAILY #60 tab.sr.24h 03/12/19 RX: Patiromer Calcium Sorbitex [Veltassa 8.4 gm Susp Packet] 8.4 gm PO DAILY@1700 #30 packet 03/12/19 Allergies/Adverse Reactions: amoxicillin trihydrate [From Augmentin] Allergy (Severe, Verified 01/06/19 14:12) stomach cramps, n and v, rash butalbital [From Fiorinal] Allergy (Unknown, Verified 01/06/19 14:12) rash metformin HCl [From Glucophage] Allergy (Unknown, Verified 01/06/19 14:12) rash Potassium Clavulanate * [From Augmentin] Adverse Reaction (Unknown, Verified 01/06/19 14:12) nausea, vomit, epig pain Review of Systems Review of Systems: as per HPI Physical Exam Vital Signs: Temp Pulse Resp BP Pulse Ox 97.7 F 59 L 11 L 110/51 L 100 03/18/19 09:46 03/18/19 09:46 03/18/19 14:02 03/18/19 14:02 03/18/19 14:02 Intake & Output 03/17/19 03/18/19 03/19/19 06:59 06:59 06:59 Intake Total 1000 Balance 1000 General appearance: PRESENT: morbidly obese Head exam: PRESENT: atraumatic, normocephalic Respiratory exam: PRESENT: clear to auscultation cheli. ABSENT: rales, rhonchi, wheezes Cardiovascular exam: PRESENT: RRR. ABSENT: diastolic murmur, rubs, systolic mur mur GI/Abdominal exam: PRESENT: normal bowel sounds, soft, tenderness - LLQ. ABSENT: distended, guarding, mass, organolmegaly, rebound Extremities exam: PRESENT: +1 edema Neurological exam: PRESENT: alert, awake, oriented to person, oriented to place, oriented to time, oriented to situation, CN II-XII grossly intact. ABSENT: motor sensory deficit Results Laboratory Results: 03/18/19 10:10 03/18/19 10:10 03/18/19 03/18/19 03/18/19 10:10 10:10 10:10 WBC 6.1 RBC 3.31 L Hgb 9.9 L Hct 29.5 L MCV 89 MCH 29.8 MCHC 33.4 RDW 15.9 H Plt Count 188 Seg Neutrophils % 66.3 Lymphocytes % 18.6 Monocytes % 10.4 Eosinophils % 4.3 Basophils % 0.4 Absolute Neutrophils 4.0 Absolute Lymphocytes 1.1 Absolute Monocytes 0.6 Absolute Eosinophils 0.3 Absolute Basophils 0.0 Sodium 126.7 L Potassium 5.9 H Chloride 90 L Carbon Dioxide 24 Anion Gap 13 BUN 63 H Creatinine 4.63 H Est GFR ( Amer) 11 L Est GFR (Non-Af Amer) 9 L Glucose 153 H Lactic Acid 0.7 Calcium 7.7 L Total Bilirubin 0.9 AST 23 ALT 23 Alkaline Phosphatase 78 Total Protein 5.7 L Albumin 3.0 L Urine Color Urine Appearance Urine pH Ur Specific [place] Urine Protein Urine Glucose (UA) Urine Ketones Urine Blood Urine Nitrite Ur Leukocyte Esterase Urine WBC (Auto) Urine RBC (Auto) 03/18/19 11:10 WBC RBC Hgb Hct MCV MCH MCHC RDW Plt Count Seg Neutrophils % Lymphocytes % Monocytes % Eosinophils % Basophils % Absolute Neutrophils Absolute Lymphocytes Absolute Monocytes Absolute Eosinophils Absolute Basophils Sodium Potassium Chloride Carbon Dioxide Anion Gap BUN Creatinine Est GFR ( Amer) Est GFR (Non-Af Amer) Glucose Lactic Acid Calcium Total Bilirubin AST ALT Alkaline Phosphatase Total Protein Albumin Urine Color YELLOW Urine Appearance CLEAR Urine pH 5.0 Ur Specific [place] 1.012 Urine Protein NEGATIVE Urine Glucose (UA) NEGATIVE Urine Ketones NEGATIVE Urine Blood NEGATIVE Urine Nitrite NEGATIVE Ur Leukocyte Esterase NEGATIVE Urine WBC (Auto) 2 Urine RBC (Auto) 0 Impressions: Chest X-Ray 03/18/19 00:00 IMPRESSION: Stable enlarged cardiac silhouette. Otherwise, no evidence of acute cardiopulmonary process. Assessment and Plan - Diagnosis (1) Acute renal failure superimposed on stage 3 chronic kidney disease Qualifiers: Is this a current diagnosis for this admission?: Yes Plan: Nonoliguric. Patient had 500 cc of urine upon catheterization. Received 2 L of IV fluid and ED. 03/18/2019. Potassium 5.9, creatinine 4.63 up from 1.97 on 03/10/2019. Baseline 1.8. 03/09/2019. Na 135, K 4.5, Side Piece Coverer 2.12 down from 2.24 Rivera catheter placement, strict in and out, gentle diuresis guided by volume status. Avoid nephrotoxic medications. Consult nephrology. (2) Hyponatremia Is this a current diagnosis for this admission?: Yes Plan: Received 2 L of NS in ED. BMP every 8 hours. Continue NS. Goal of sodium correction about 8 mEq in the first 24 hours. (3) Hyperkalemia Is this a current diagnosis for this admission?: Yes Plan: Chronic hyperkalemia, likely due to worsening CKD. 03/18/2019. Potassium 5.9, creatinine 4.63 up from 1.97 on 03/10/2019. Baseline 1.8. 03/09/2019. Na 135, K 4.5, Side Piece Coverer 2.12 down from 2.24 Continue hyperkalemia protocol. Will start on Veltassa and lactulose as Kayexalate is available at this point. BMP every 8 hours. Nephrology consulted. (4) CHF (congestive heart failure) Qualifiers: Heart failure type: unspecified Heart failure chronicity: acute on chronic Qualified Code(s): I50.9 - Heart failure, unspecified Is this a current diagnosis for this admission?: No Plan: Diastolic heart failure. BNP on admission 3270 03/05/2019 2D echo from 01/29/2019. LVEF 65%. 2/4 mild to moderate diastolic dysfunction.Not acutely exacerbated based on physical examination. Cardiac diet, fluid restriction. Continue beta-blockers. Hold Lasix due to worsening renal function. Restart once appropriate. (5) Diabetes mellitus type 2 in obese Is this a current diagnosis for this admission?: No Plan: Diabetic diet. Long-acting insulin, pre-meal insulin, sliding scale insulin, adjust meds as needed. (6) Fatigue Qualifiers: Fatigue type: chronic, unspecified Qualified Code(s): R53.82 - Chronic fatigue, unspecified Is this a current diagnosis for this admission?: No Plan: Chronic. Likely due to uremic syndrome caused by worsening CKD and UTI and anemia. Correct electrolytes as needed. Nephrology consulted. (7) Hx of coronary artery disease Is this a current diagnosis for this admission?: No Plan: History of CABG in 2001. PCI x1 stent in 2002. Continue aspirin, Plavix, beta-blockers, statins. (8) Hypertension Is this a current diagnosis for this admission?: No Plan: Hypotensive. Restart home meds as needed. (9) Morbid obesity with BMI of 40.0-44.9, adult Is this a current diagnosis for this admission?: No Plan: Diet and lifestyle modification. (10) Anemia Qualifiers: Anemia type: due to chronic kidney disease Chronic kidney disease stage: stage 3 (moderate) Qualified Code(s): N18.3 - Chronic kidney disease, stage 3 (moderate); D63.1 - Anemia in chronic kidney disease Is this a current diagnosis for this admission?: No Plan: Hemoglobin 9.9 today. Which may drop after volume resuscitation. Baseline hemoglobin about 8-9. Anemia could be multifactorial due to underlying CKD and chronic iron deficiency anemia. Patient had stool guaiac in the last admission which was positive, surgery was consulted however they recommended outpatient GI follow-up as patient was not actively bleeding. If needed GI can be consulted while patient is inpatient.
[2019-03-18] MEDS ORDERED: NORMAL SALINE 1000 ML 1,000 ML IV PRN (16:30)
[2019-03-18] MEDS ORDERED: PROMETHAZINE HCL INJ 25 MG/1 ML VIAL IV PRN (16:30)
[2019-03-18] MEDS ORDERED: ONDANSETRON 4 MG TAB.RAPDIS PO PRN (16:30)
[2019-03-18] MEDS ORDERED: ACETAMINOPHEN 650 MG SUPP.RECT PR PRN (16:30)
[2019-03-18] MEDS ORDERED: GLUCAGON,HUMAN RECOMB 1 MG INJ IM PRN (16:45)
[2019-03-18] MEDS ORDERED: DEXTROSE 50%-WATER 25 GM/50 ML DISP.SYRIN IV PRN ×2 (16:45)
[2019-03-18] MEDS ORDERED: DEXTROSE 40% GEL 15 GM TUBE PO PRN ×2 (16:45)
[2019-03-18 18:17] LABS: ANION GAP 12 (5-19); BLOOD UREA NITROGEN 62 mg/dL (7-20); CALCIUM 7.6 mg/dL (8.4-10.2); CARBON DIOXIDE 25 mmol/L (22-30); CHLORIDE 93 mmol/L (98-107); GLUCOSE 97 mg/dL (75-110); SODIUM 129.7 mmol/L (137-145)
[2019-03-18 18:43] LABS: POTASSIUM 4.8 mmol/L (3.6-5.0)
[2019-03-18] MEDS: DOCUSATE SODIUM 100 MG/10 ML UDC PO SCH (19:34)
[2019-03-18] MEDS: ASPIRIN 81 MG TABLET, CHEWABLE PO SCH (19:34)
[2019-03-18] MEDS: ATORVASTATIN CALCIUM 40 MG TABLET PO SCH (19:34)
--- NOTE | 2019-03-18 20:05 | EKG REPORT ---
SEVERITY:- ABNORMAL ECG - SINUS BRADYCARDIA INCOMPLETE LEFT BUNDLE BRANCH BLOCK LOW VOLTAGE IN FRONTAL LEADS CONSIDER ANTERIOR INFARCT : Confirmed by: Glenys Quesada MD 18-Mar-2019 20:04:57
[2019-03-18] MEDS: IPRATROPIUM/ALBUTEROL 0.5-2.5 MG/3 ML AMPUL NEB SCH (20:29)
[2019-03-18] MEDS: INSULIN LISPRO 100 UNIT/ML 3 ML VIAL SUBCUT SCH (21:35)
[2019-03-18] MEDS: FAMOTIDINE 20 MG TABLET PO SCH (21:41)
[2019-03-18] MEDS: INSULIN GLARGINE,HUM.REC.ANLOG 1,000 UNIT/10 ML VIAL SUBCUT SCH (21:42)
[2019-03-18] MEDS: HEPARIN SOD (PORCINE) 5,000 UNIT/ML 1 ML SYRINGE SUBCUT SCH (21:42)
[2019-03-18] MEDS: GABAPENTIN 300 MG CAPSULE PO SCH (21:44)
[2019-03-18] MEDS: OXYCODONE-ACETAMINOPHEN 5-325 MG TABLET PO PRN (21:49)
[2019-03-18] MEDS ORDERED: FAMOTIDINE 20 MG TABLET PO SCH (22:00)
[2019-03-18] MEDS ORDERED: (PENDING PHARMACY ID) (Fluticasone/Salmeterol 1 PUFF) IH SCH (22:00)
[2019-03-18 23:21] LABS: ANION GAP 10 (5-19); BLOOD UREA NITROGEN 61 mg/dL (7-20); CALCIUM 7.4 mg/dL (8.4-10.2); CARBON DIOXIDE 25 mmol/L (22-30); CHLORIDE 94 mmol/L (98-107); GLUCOSE 123 mg/dL (75-110); POTASSIUM 5.1 mmol/L (3.6-5.0); SODIUM 129.4 mmol/L (137-145)
[2019-03-19] MEDS: IPRATROPIUM/ALBUTEROL 0.5-2.5 MG/3 ML AMPUL NEB SCH ×6 (00:43→21:02)
[2019-03-19] MEDS: OXYCODONE-ACETAMINOPHEN 5-325 MG TABLET PO PRN ×2 (03:41→21:27)
[2019-03-19] MEDS: HEPARIN SOD (PORCINE) 5,000 UNIT/ML 1 ML SYRINGE SUBCUT SCH ×3 (05:20→21:21)
[2019-03-19 08:01] LABS: ANION GAP 11 (5-19); BLOOD UREA NITROGEN 61 mg/dL (7-20); CALCIUM 7.3 mg/dL (8.4-10.2); CARBON DIOXIDE 23 mmol/L (22-30); CHLORIDE 94 mmol/L (98-107); GLUCOSE 90 mg/dL (75-110); POTASSIUM 4.8 mmol/L (3.6-5.0); SODIUM 128.2 mmol/L (137-145)
[2019-03-19 08:31] LABS: ABSOLUTE EOSINOPHILS # (AUTO) 0.2 10^3/uL (0.0-0.6); ABSOLUTE LYMPHOCYTES (AUTO) 1.4 10^3/uL (0.5-4.7); ABSOLUTE MONOCYTES (AUTO) 0.5 10^3/uL (0.1-1.4); ABSOLUTE NEUT (AUTO) 2.6 10^3/uL (1.7-8.2); BASOPHILS % (AUTO) 0.5 % (0-2); EOSINOPHILS % (AUTO) 4.4 % (0-6); HEMATOCRIT 27.1 % (36.0-47.0); LYMPHOCYTES % (AUTO) 28.6 % (13-45); MEAN CORPUSCULAR HEMOGLOBIN 29.2 pg (27.0-33.4); MEAN CORPUSCULAR HGB CONC 33.1 g/dL (32.0-36.0); MEAN CORPUSCULAR VOLUME 88 fl (80-97); MONOCYTES % (AUTO) 11.1 % (3-13); PLATELET COUNT 125 10^3/uL (150-450); RED BLOOD COUNT 3.07 10^6/uL (3.72-5.28); RED CELL DISTRIBUTION WIDTH 15.6 % (11.5-14.0); SEGMENTED NEUTROPHILS % (AUTO) 55.4 % (42-78); TOTAL CELLS COUNTED % (AUTO) 100 %; WHITE BLOOD COUNT 4.8 10^3/uL (4.0-10.5)
[2019-03-19] MEDS ORDERED: (PENDING PHARMACY ID) (Linaclotide [Linzess] 72 MCG) PO SCH (10:00)
[2019-03-19] MEDS ORDERED: (PENDING PHARMACY ID) (Fenofibrate Nanocrystallized [Triglide] 160 MG) PO SCH (10:00)
[2019-03-19] MEDS: INSULIN LISPRO 100 UNIT/ML 3 ML VIAL SUBCUT SCH ×4 (10:31→21:24)
[2019-03-19] MEDS: GABAPENTIN 300 MG CAPSULE PO SCH (10:39)
[2019-03-19] MEDS: CLOPIDOGREL BISULFATE 75 MG TABLET PO SCH (10:40)
[2019-03-19] MEDS: DOCUSATE SODIUM 100 MG/10 ML UDC PO SCH (10:40)
[2019-03-19] MEDS: FLUTICASONE/VILANTEROL 200-25 MCG/DOSE IH SCH (10:40)
[2019-03-19] MEDS: ASPIRIN 81 MG TABLET, CHEWABLE PO SCH (10:40)
[2019-03-19] MEDS: EZETIMIBE 10 MG TABLET PO SCH (10:40)
[2019-03-19] MEDS: FENOFIBRATE NANOCRYSTALLIZED 145 MG TABLET PO SCH (10:40)
--- NOTE | 2019-03-19 12:39 | RADIOLOGY REPORT (SQ) ---
EXAM DESCRIPTION: CHEST SINGLE VIEW COMPLETED DATE/TIME: 03/19/2019 11:26 am REASON FOR STUDY: Possible pulmonary edema/crackles in the bases COMPARISON: 03/18/2019 EXAM PARAMETERS: NUMBER OF VIEWS: One view. TECHNIQUE: Single frontal radiographic view of the chest acquired. RADIATION DOSE: NA LIMITATIONS: None. FINDINGS: LUNGS AND PLEURA: No opacities, masses or pneumothorax. No pleural effusion. MEDIASTINUM AND HILAR STRUCTURES: No masses. Contour normal. HEART AND VASCULAR STRUCTURES: Heart normal in size. Normal vasculature. BONES: No acute findings. HARDWARE: Sternotomy wires. Graft markers. OTHER: No other significant finding. IMPRESSION: NO ACUTE RADIOGRAPHIC FINDING IN THE CHEST. TECHNICAL DOCUMENTATION: JOB ID: [id number] [employer]- All Rights Reserved Reading location - IP/workstation name: [email or web address]
--- NOTE | 2019-03-19 14:03 | PDOC CONSULTATION ---
Consultation Consult Date: 03/19/19 Consult reason:: ROSA History of Present Illness Admission Date/PCP: 03/18/19 15:00 DANI PANDA DO History of Present Illness: PRECIOUS BURCH is a 73 year old female past medical history of CKD stage IV with a baseline around 2 for a creatinine, anemia of CKD just recently started procrit, hyperkalemia on veltassa, morbid obesity, CAD status post CABG in 2001 followed by 1 stent placement in 2002, diabetes and hypertension. Has been in and out of the hospital several times in the past 3 months. On February 14 she was found to have an ROSA with a creatinine in the 4s, on discharge it was down to around 2. Recently was back in the hospital on 03/04/2019 for hyperkalemia, fatigue, acute on chronic renal failure, UTI. She was discharged on 03/09/2019. She called my office stating that she has urinated in a couple of days. She was due to come into the office for a procrit shot. Due to her not urinating she was advised by Dr. Serra's MA, per Dr. Serra she needed to go to the ER. EMS then brought her into the ER. In the ER she was telling other medical providers that she is progressively getting weaker, dizzier and had not urinated in a couple of days. She has started to have increased left lower quadrant pain, nausea and not anorexia. Labs in the ER showed a potassium of 5.9, creatinine of 4.63, sodium of 126.7, hemoglobin was 9.9. Chest x-ray did not show any fluid. Blood pressure was 84/48. She was given to 2L of NS and it went to 110/51. Today she is still on the normal saline at 60mL/h. A little catheter has been placed and she has produced a little over 500mL of urine. According to her she had been drinking a lot of water prior to coming in. Even when she was not urinating. Shew was just not eating due nausea, denies vomiting. She claims that her SOB has increased since yesterday. She denies chest, fevers, chills, diarrhea or constipation. Past Medical History Cardiac Medical History: Reports: Coronary Artery Disease - BYPASS 2001, Hyperlipidemia, Hypertension-primary, Myocardial Infarction Denies: Atrial Fibrillation, DVT, Pulmonary Embolism Pulmonary Medical History: Reports: Asthma, Bronchitis, Chronic Obstructive Pulmonary Disease (COPD), Pneumonia, Respiratory Failure, Sleep Apnea - no cpap insurance does not cover Denies: Tuberculosis Neurological Medical History: Denies: Seizures Endocrine Medical History: Reports: Diabetes Mellitus Type 2 - DX [place] 1994 Denies: Diabetes Mellitus Type 1, Hyperthyroidism, Hypothyroidism Renal/ Medical History: Reports: Chronic Kidney Disease Stage IV, End Stage Renal Disease Denies: Benign Prostatic Hyperplasia GI Medical History: Denies: Cirrhosis, Gastroesophageal Reflux Disease, Hepatitis Musculoskeltal Medical History: Reports: Arthritis Denies: Gout, Rheumatoid Arthritis, Systemic Lupus Erythematosus Skin Medical History: Denies: Eczema, Psoriasis Psychiatric Medical History: Reports: Depression Denies: Bipolar Disorder Past Surgical History Past Surgical History: Reports: Cardiac Catheterization, Section, Cholecystectomy, Coronary Stent, Gastric Bypass Surgery - 2001, Hysterectomy, Tubal Ligation Social History Smoking Status: Unknown if Ever Smoked Frequency of Alcohol Use: None Hx Recreational Drug Use: No Drugs: None Hx Prescription Drug Abuse: No - Advance Directive Resuscitation Status: Do Not Resuscitate Family History Parental Family History Reviewed: Yes Children Family History Reviewed: Unknown Sibling(s) Family History Reviewed.: Unknown Medication/Allergy Home Medications: Acetaminophen [Tylenol 325 mg Tablet] 650 mg PO Q6HP PRN 03/04/19 Albuterol Sulfate [Albuterol Sulfate Hfa] 2 puff IH Q8HP PRN 03/04/19 Aspirin [Aspirin 81 mg Chewable Tablet] 81 mg PO DAILY 03/04/19 Atorvastatin Calcium [Lipitor 40 mg Tablet] 40 mg PO QPM 03/04/19 Clopidogrel Bisulfate [Plavix 75 mg Tablet] 75 mg PO DAILY 03/04/19 Cyclosporine 0.05% Oph Emulsio [Restasis 0.05% Oph Emulsion Pf 0.4 ml] 1 drop OU BID 03/04/19 Diphenhydramine HCl [Benadryl 25 mg Capsule] 25 mg PO QPM 03/04/19 Epoetin Aung [Procrit Inj 40,000 Unit/1 ml Vial (Renal)] 2 ml SQ WE@0800 0 03/04/19 Ezetimibe [Zetia 10 mg Tablet] 10 mg PO DAILY 03/04/19 Fenofibrate Nanocrystallized [Triglide] 160 mg PO DAILY 03/04/19 Fluticasone/Salmeterol [Advair 250-50 Diskus 14 Dose/Diskus] 1 puff IH Q12 03/04/19 Furosemide [Lasix 20 mg Tablet] 20 mg PO BID 03/04/19 Gabapentin [Neurontin] 600 mg PO Q12 03/04/19 Hydroxyzine Pamoate [Vistaril 50 mg Capsule] 50 mg PO Q8HP PRN 03/04/19 Insulin Lispro [Humalog Insulin (Lispro) 100 unit/mL] 0 unit SQ .SLIDING SCALE 03/04/19 Levalbuterol HCl [Levalbuterol Concentrate] 1.25 mg NEB RTQ6 03/04/19 Linaclotide [Linzess] 72 mcg PO DAILY 03/04/19 Losartan Potassium [Cozaar 25 mg Tablet] 25 mg PO DAILY 03/04/19 Montelukast Sodium [Singulair 10 mg Tablet] 10 mg PO QPM 03/04/19 Nitroglycerin [Nitrostat 0.4 mg (1/150 Gr) Tabs 25/Bottle] 0.4 mg PO Q5MP PRN 03/04/19 Omeprazole 40 mg PO BID 03/04/19 Ondansetron HCl [Zofran 8 mg Tablet] 8 mg PO Q4HP PRN 03/04/19 Oxycodone HCl/Acetaminophen [Percocet 5-325 mg Tablet] 1 tab PO Q6HP PRN 03/04/19 Rosuvastatin Calcium [Crestor] 40 mg PO QPM 03/04/19 Amlodipine Besylate [Norvasc 5 mg Tablet] 5 mg PO DAILY #30 tablet 03/12/19 Insulin Glargine,Hum.rec.anlog [Lantus Insulin 100 Unit/1 ml 10 ml] 18 unit SUBCUT QHS #1 bottle 03/12/19 Isosorbide Mononitrate [Imdur 30 mg Tablet.er] 30 mg PO DAILY #30 tab.er.24h 03/12/19 Metoprolol Succinate [Toprol Xl 25 mg Tab.sr] 50 mg PO DAILY #60 tab.sr.24h 03/12/19 Patiromer Calcium Sorbitex [Veltassa 8.4 gm Susp Packet] 8.4 gm PO DAILY@1700 #30 packet 03/12/19 Allergies/Adverse Reactions: amoxicillin trihydrate [From Augmentin] Allergy (Severe, Verified 01/06/19 14:12) stomach cramps, n and v, rash butalbital [From Fiorinal] Allergy (Unknown, Verified 01/06/19 14:12) rash metformin HCl [From Glucophage] Allergy (Unknown, Verified 01/06/19 14:12) rash Potassium Clavulanate * [From Augmentin] Adverse Reaction (Unknown, Verified 01/06/19 14:12) nausea, vomit, epig pain Review of Systems Constitutional: PRESENT: anorexia, fatigue, weakness. ABSENT: chills, fever(s), headache(s) Eyes: ABSENT: visual disturbances Nose, Mouth, and Throat: ABSENT: headache(s) Cardiovascular: PRESENT: dyspnea on exertion, edema, orthropnea. ABSENT: chest pain, palpitations Respiratory: PRESENT: dyspnea. ABSENT: cough, sputum Gastrointestinal: PRESENT: abdominal pain. ABSENT: constipation, diarrhea, nausea, vomiting Genitourinary: PRESENT: difficulty urinating, dysuria. ABSENT: hematuria, nocturia Musculoskeletal: PRESENT: back pain - -chronic, muscle weakness Neurological: PRESENT: dizziness, weakness. ABSENT: confusion, focal weakness, numbness Endocrine: PRESENT: polydipsia. ABSENT: polyuria Hematologic/Lymphatic: ABSENT: easy bleeding, easy bruising Physical Exam Vital Signs: Temp Pulse Resp BP Pulse Ox 98.2 F 61 18 114/41 L 99 03/19/19 08:13 03/19/19 08:15 03/19/19 08:15 03/19/19 08:13 03/19/19 08:15 Intake & Output 03/18/19 03/19/19 03/20/19 06:59 06:59 06:59 Intake Total 2320 Output Total 575 Balance 1745 Weight 94.5 kg General appearance: PRESENT: no acute distress, obese, well-developed, well- nourished Eye exam: PRESENT: PERRLA. ABSENT: scleral icterus Mouth exam: PRESENT: moist, neck supple. ABSENT: dry mucosa Neck exam: ABSENT: JVD, tracheal deviation Respiratory exam: PRESENT: crackles, rales. ABSENT: accessory muscle use, clear to auscultation cheli, wheezes Cardiovascular exam: PRESENT: RRR, +S1, +S2 GI/Abdominal exam: PRESENT: guarding, hypoactive bowel sounds, soft, tenderness. ABSENT: distended Extremities exam: PRESENT: pedal edema, +2 edema. ABSENT: tenderness Musculoskeletal exam: ABSENT: normal inspection, tenderness Neurological exam: PRESENT: alert, awake, oriented to person, oriented to place, oriented to time, oriented to situation Psychiatric exam: PRESENT: appropriate affect, normal mood Skin exam: PRESENT: dry, intact, warm Results Laboratory Results: 03/19/19 07:00 03/19/19 07:00 03/18/19 03/18/19 03/19/19 17:41 22:40 07:00 WBC 4.8 RBC 3.07 L Hgb 9.0 L Hct 27.1 L MCV 88 MCH 29.2 MCHC 33.1 RDW 15.6 H Plt Count 125 L Seg Neutrophils % 55.4 Lymphocytes % 28.6 Monocytes % 11.1 Eosinophils % 4.4 Basophils % 0.5 Absolute Neutrophils 2.6 Absolute Lymphocytes 1.4 Absolute Monocytes 0.5 Absolute Eosinophils 0.2 Absolute Basophils 0.0 Sodium 129.7 L 129.4 L Potassium 4.8 D 5.1 H Chloride 93 L 94 L Carbon Dioxide 25 25 Anion Gap 12 10 BUN 62 H 61 H Creatinine 4.34 H 4.44 H Est GFR ( Amer) 12 L 12 L Est GFR (Non-Af Amer) 10 L 10 L Glucose 97 123 H Calcium 7.6 L 7.4 L Magnesium 03/19/19 07:00 WBC RBC Hgb Hct MCV MCH MCHC RDW Plt Count Seg Neutrophils % Lymphocytes % Monocytes % Eosinophils % Basophils % Absolute Neutrophils Absolute Lymphocytes Absolute Monocytes Absolute Eosinophils Absolute Basophils Sodium 128.2 L Potassium 4.8 Chloride 94 L Carbon Dioxide 23 Anion Gap 11 BUN 61 H Creatinine 4.27 H Est GFR ( Amer) 12 L Est GFR (Non-Af Amer) 10 L Glucose 90 Calcium 7.3 L Magnesium 1.8 Assessment & Plan - Diagnosis (1) Acute kidney injury (nontraumatic) Plan: oliguric, only produced 500mL over the past few days and since being cathed is still not producing a lot of urine. Most likely cause of ROSA is due to decreased bp. She has been hydrating well prior to the hospital. Making dehydration the less likely cause for the low bp. Awaiting blood culture results. Bp could be low due being on too much blood pressure medication. Currently bp is improved off of bp medications. Will look to get renal ultrasound to evaluate the kidneys and will look to also stop the fluid for now due to increased SOB. Getting a chest x-ray to evaluate the lungs and reassess for the need of fluids. She currently has 2+ edema on her legs. Adjust all medications for a GFR less than 25. No current indication for [employer]. (2) Hyperkalemia Is this a current diagnosis for this admission?: Yes Plan: on veltassa (3) Hypotension Plan: Does not look to be due to dehydration. She denies vomiting, diarrhea, excessive sweating and has been consuming large amounts of water daily since getting out of the hospital. Awaiting blood cultures, less likely, white count and temperature are normal. No current signs of an infection. Low bp could be from too much blood pressure medication. Currently improved off of bp medications. NS is on hold for now due to concerns for fluid overload. (4) Acute on chronic diastolic (congestive) heart failure Plan: looks to be building up fluid. Holding IV fluids for now and getting a chest x- ray. (5) Hyponatremia Is this a current diagnosis for this admission?: Yes Plan: fluid restricting to 1L per a 24 hours[address] Placing IV fluid on hold for due to increased SOB and signs of fluid overload. (6) Bradycardia Plan: per cardiology (7) Anemia of chronic disease Plan: on procrit
[2019-03-19 14:50] LABS: ANION GAP 14 (5-19); BLOOD UREA NITROGEN 58 mg/dL (7-20); CALCIUM 7.1 mg/dL (8.4-10.2); CARBON DIOXIDE 22 mmol/L (22-30); CHLORIDE 91 mmol/L (98-107); GLUCOSE 112 mg/dL (75-110); POTASSIUM 4.9 mmol/L (3.6-5.0)
[2019-03-19] MEDS ORDERED: ACETAMINOPHEN 650 MG SUPP.RECT PR PRN (15:37)
[2019-03-19] MEDS ORDERED: ACETAMINOPHEN 325 MG TABLET PO PRN (15:58)
--- NOTE | 2019-03-19 16:22 | PDOC PROGRESS REPORT ---
Subjective Progress Note for:: 03/19/19 Subjective:: This is a 73 year old female past medical history of CKD stage IV nonoliguric, anemia of CKD, hyperkalemia, morbid obesity, retention, CAD status post CABG in 2001 followed by 1 a stent placement in 2002, diabetes and hypertension who was admitted here at [facility] on 03/04/2019 for hyperkalemia, fatigue, acute on chronic renal failure, UTI and was transferred to care home on 03/09/2019. She presented with progressive weakness, dizziness, increased abdominal girth, persistent left lower quadrant abdominal pain, decreased urine output, nausea and anorexia. In the ER, she was found to have a sodium of 126.7, potassium 5.9, creatinine of 4.63 from 1.97 on 03/10/2019. She was also found to be hypotensive at 84/48 which improved to 110/51 after receiving 2 L of IV fluids. No acute event overnight. This morning, she says she still feels weak but feels a little better today. Denies chest pain or SOB. She is making urine and had 575 cc of urine overnight. She says she was having poor oral intake at the care home. She complains of left lower quadrant pain. Reason For Visit: HYPERKALEMIAHYPONATREMIA,ROSA Physical Exam Vital Signs: Temp Pulse Resp BP Pulse Ox 97.8 F 62 16 109/35 L 97 03/19/19 11:30 03/19/19 15:37 03/19/19 15:37 03/19/19 11:30 03/19/19 15:37 Intake & Output 03/18/19 03/19/19 03/20/19 06:59 06:59 06:59 Intake Total 2320 Output Total 575 Balance 1745 Weight 208 lb 5.389 oz General appearance: PRESENT: no acute distress, well-developed, well-nourished Head exam: PRESENT: atraumatic, normocephalic Eye exam: PRESENT: conjunctiva pink, EOMI, PERRLA. ABSENT: scleral icterus Ear exam: PRESENT: normal external ear exam Mouth exam: PRESENT: moist, tongue midline Neck exam: ABSENT: carotid bruit, JVD, lymphadenopathy, thyromegaly Respiratory exam: PRESENT: rhonchi. ABSENT: rales, wheezes Cardiovascular exam: PRESENT: RRR. ABSENT: diastolic murmur, rubs, systolic murmur Pulses: PRESENT: normal dorsalis pedis pul GI/Abdominal exam: PRESENT: normal bowel sounds, soft. ABSENT: distended, guarding, mass, organolmegaly, rebound, tenderness Rectal exam: PRESENT: deferred Neurological exam: PRESENT: alert, awake, oriented to person, oriented to place, oriented to time, oriented to situation, CN II-XII grossly intact. ABSENT: motor sensory deficit Results Laboratory Results: 03/19/19 07:00 03/19/19 13:52 03/18/19 03/18/19 03/19/19 17:41 22:40 07:00 WBC 4.8 RBC 3.07 L Hgb 9.0 L Hct 27.1 L MCV 88 MCH 29.2 MCHC 33.1 RDW 15.6 H Plt Count 125 L Seg Neutrophils % 55.4 Lymphocytes % 28.6 Monocytes % 11.1 Eosinophils % 4.4 Basophils % 0.5 Absolute Neutrophils 2.6 Absolute Lymphocytes 1.4 Absolute Monocytes 0.5 Absolute Eosinophils 0.2 Absolute Basophils 0.0 Sodium 129.7 L 129.4 L Potassium 4.8 D 5.1 H Chloride 93 L 94 L Carbon Dioxide 25 25 Anion Gap 12 10 BUN 62 H 61 H Creatinine 4.34 H 4.44 H Est GFR ( Amer) 12 L 12 L Est GFR (Non-Af Amer) 10 L 10 L Glucose 97 123 H Calcium 7.6 L 7.4 L Magnesium 03/19/19 03/19/19 07:00 13:52 WBC RBC Hgb Hct MCV MCH MCHC RDW Plt Count Seg Neutrophils % Lymphocytes % Monocytes % Eosinophils % Basophils % Absolute Neutrophils Absolute Lymphocytes Absolute Monocytes Absolute Eosinophils Absolute Basophils Sodium 128.2 L 127.0 L Potassium 4.8 4.9 Chloride 94 L 91 L Carbon Dioxide 23 22 Anion Gap 11 14 BUN 61 H 58 H Creatinine 4.27 H 3.86 H Est GFR ( Amer) 12 L 14 L Est GFR (Non-Af Amer) 10 L 12 L Glucose 90 112 H Calcium 7.3 L 7.1 L Magnesium 1.8 Impressions: Chest X-Ray 03/19/19 10:42 IMPRESSION: NO ACUTE RADIOGRAPHIC FINDING IN THE CHEST. Assessment and Plan - Diagnosis (1) Acute on chronic renal failure Is this a current diagnosis for this admission?: Yes Plan: Possibly pre-renal from poor intake and ATN from hypotension. Creatinine improved down to 3.8 from 4.6. (2) Hyperkalemia Is this a current diagnosis for this admission?: Yes Plan: Improved. She was given hyperkalemia cocktail in the ER. (3) Hyponatremia Is this a current diagnosis for this admission?: Yes (4) Hypotension Is this a current diagnosis for this admission?: Yes Plan: Possibly from volume depletion. - Time Time Spent with patient: 25-34 minutes
[2019-03-19] MEDS: ATORVASTATIN CALCIUM 40 MG TABLET PO SCH (17:28)
[2019-03-19] MEDS: DOCUSATE SODIUM 100 MG CAPSULE PO SCH (17:28)
--- NOTE | 2019-03-19 18:16 | RADIOLOGY REPORT (SQ) ---
EXAM DESCRIPTION: CT ABD/PELVIS NO ORAL OR IV COMPLETED DATE/TIME: 03/19/2019 5:51 pm REASON FOR STUDY: LLQ tenderness COMPARISON: 02/19/2019 TECHNIQUE: CT scan of the abdomen and pelvis performed without intravenous or oral contrast. Images reviewed with lung, soft tissue, and bone windows. Reconstructed coronal and sagittal MPR images revi ewed. All images stored on PACS. All CT scanners at this facility use dose modulation, iterative reconstruction, and/or weight based d osing when appropriate to reduce radiation dose to as low as reasonably achievable (ALARA). [facility]: Dose Right [facility]: CareDose [facility]: Dose Right [facility]: Teradose 4D [facility]: Delpor RADIATION DOSE: CT Rad equipment meets quality standard of care and radiation dose reduction techniq ues were employed. CTDIvol: 18.0 mGy. DLP: 969 mGy-cm.mGy. LIMITATIONS: None. FINDINGS: LOWER CHEST: Small residual left pleural effusion and basilar subsegmental atelectasis. NON-CONTRASTED LIVER, SPLEEN, ADRENALS: Evaluation limited by lack of IV contrast. No identified sign ificant masses. PANCREAS: No masses. GALLBLADDER: Surgically absent. RIGHT KIDNEY AND URETER: No cysts identified. No solid masses. No calcified stones. No hydronephrosis or hydroureter. LEFT KIDNEY AND URETER: No cysts identified. No solid masses. No calcified stones. No hydronephrosis or hydroureter. AORTA AND RETROPERITONEUM: No aneurysm. No retroperitoneal masses or adenopathy. BOWEL AND PERITONEAL CAVITY: No obstruction. Scattered diverticulosis. Similar scattered small amou nts of free fluid. APPENDIX: Not visualized. PELVIS, BLADDER, AND ABDOMINAL WALL: Similar scattered small amounts of free fluid.New Rivera catheter in the bladder. Body wall edema. BONES: No acute findings. OTHER: No other significant finding. IMPRESSION: Small residual left pleural effusion and basilar subsegmental atelectasis. Similar scattered small amounts of free fluid.New Rivera catheter in the bladder. TECHNICAL DOCUMENTATION: JOB ID: [id number] Quality ID # [id number]: Final reports with documentation of one or more dose reduction techniques (e.g., Au tomated exposure control, adjustment of the mA and/or kV according to patient size, use of iterative reconstruction technique) 2010 [employer]- All Rights Reserved Reading location - IP/workstation name: [email or web address]
--- NOTE | 2019-03-19 18:30 | RADIOLOGY REPORT (SQ) ---
EXAM DESCRIPTION: U/S RETROPERITON LTD COMPLETED DATE/TIME: 03/19/2019 6:17 pm REASON FOR STUDY: ROSA COMPARISON: 03/20/2016 TECHNIQUE: Dynamic and static grayscale images acquired of the kidneys and bladder and recorded on P ACS. Additional selected color Doppler and spectral images recorded. LIMITATIONS: None. FINDINGS: RIGHT KIDNEY: Normal size, 9.1 cm. Normal echogenicity. No solid or suspicious masses . No hydronephrosis. No calcifications. LEFT KIDNEY: Normal size, 9.6 cm. The kidney is poorly seen. No obvious masses. No hydronephrosis . BLADDER: A catheter is present in the bladder. OTHER FINDINGS: No other significant finding. IMPRESSION: No acute finding. Evaluation of the left kidney and bladder quite limited. TECHNICAL DOCUMENTATION: JOB ID: [id number] [email or web address]- All Rights Reserved Reading location - IP/workstation name: [email or web address]
[2019-03-19] MEDS: PROMETHAZINE HCL INJ 25 MG/1 ML VIAL IV PRN (18:51)
[2019-03-19] MEDS: FAMOTIDINE 20 MG TABLET PO SCH (21:28)
[2019-03-19] MEDS: INSULIN GLARGINE,HUM.REC.ANLOG 1,000 UNIT/10 ML VIAL SUBCUT SCH (21:28)
--- NOTE | 2019-03-19 22:43 | PDOC CONSULTATION ---
Consultation Consult Date: 03/19/19 Consult reason:: ROSA with uremia. History of Present Illness Admission Date/PCP: 03/18/19 15:00 DANI PANDA DO History of Present Illness: PRECIOUS BURCH is a 73 year old female with a past medical history of Diabetes mellitus, hypertension, CKD stage IV With a base creatinine of approximately 1.5-2, anemia of CKD, morbid obesity, urinary retention, CAD status post CABG in 2001 followed by 1 a stent placement in 2002, was re admitted here with progressive weakness, dizziness, increased abdominal girth, persistent left lower quadrant abdominal pain, nausea and anorexia. Also noticed progressive pedal edema. She has hardly been able to eat much since she was [facility] the [facility]. Unsure about shortness of breath that she is not been able to exert a whole lot at the penitentiary. She was just recently admitted at [facility] on 03/04/2019 for acute on chronic renal failure, UTI and was [facility] on 03/09/2019. She has been having difficulty moving her bowels and she also has noticed that her urine output has decreased significantly.No complaints of any abdominal pains, fever or chills. Denies any chest pain, vomiting. Today when I saw her she rather seemed a bit lethargic. She seemed to have jerking movements like myoclonic jerks but on close evaluation she had asterixis. ER evaluations revealed sodium of 126.7, potassium 5.9, bicarb 24, creatinine 4.63 up from 1.97 on 03/10/2019. Past Medical History Cardiac Medical History: Reports: Coronary Artery Disease - BYPASS 2001, Hyperlipidemia, Hypertension-primary, Myocardial Infarction Denies: Atrial Fibrillation, DVT, Pulmonary Embolism Pulmonary Medical History: Reports: Asthma, Bronchitis, Chronic Obstructive Pulmonary Disease (COPD), Pneumonia, Respiratory Failure, Sleep Apnea - no cpap insurance does not cover Denies: Tuberculosis Neurological Medical History: Denies: Seizures Endocrine Medical History: Reports: Diabetes Mellitus Type 2 - DX [place] 1994 Denies: Diabetes Mellitus Type 1, Hyperthyroidism, Hypothyroidism Renal/ Medical History: Reports: Chronic Kidney Disease Stage IV Denies: Benign Prostatic Hyperplasia GI Medical History: Denies: Cirrhosis, Gastroesophageal Reflux Disease, Hepatitis Musculoskeltal Medical History: Reports: Arthritis Denies: Gout, Rheumatoid Arthritis, Systemic Lupus Erythematosus Skin Medical History: Denies: Eczema, Psoriasis Psychiatric Medical History: Reports: Depression Denies: Bipolar Disorder Hematology Medical History: Reports Anemia of Chronic Kidney Disease Past Surgical History Past Surgical History: Reports: Cardiac Catheterization, Section, Cholecystectomy, Coronary Stent, Gastric Bypass Surgery - 2001, Hysterectomy, Tubal Ligation Social History Smoking Status: Unknown if Ever Smoked Frequency of Alcohol Use: None Hx Recreational Drug Use: No Drugs: None Hx Prescription Drug Abuse: No - Advance Directive Resuscitation Status: Do Not Resuscitate Family History Parental Family History Reviewed: Yes - Negative for ESRD Children Family History Reviewed: No Sibling(s) Family History Reviewed.: No Medication/Allergy Home Medications: Acetaminophen [Tylenol 325 mg Tablet] 650 mg PO Q6HP PRN 03/04/19 Albuterol Sulfate [Albuterol Sulfate Hfa] 2 puff IH Q8HP PRN 03/04/19 Aspirin [Aspirin 81 mg Chewable Tablet] 81 mg PO DAILY 03/04/19 Atorvastatin Calcium [Lipitor 40 mg Tablet] 40 mg PO QPM 03/04/19 Clopidogrel Bisulfate [Plavix 75 mg Tablet] 75 mg PO DAILY 03/04/19 Cyclosporine 0.05% Oph Emulsio [Restasis 0.05% Oph Emulsion Pf 0.4 ml] 1 drop OU BID 03/04/19 Diphenhydramine HCl [Benadryl 25 mg Capsule] 25 mg PO QPM 03/04/19 Epoetin Aung [Procrit Inj 40,000 Unit/1 ml Vial (Renal)] 2 ml SQ WE@0800 03/04/19 Ezetimibe [Zetia 10 mg Tablet] 10 mg PO DAILY 03/04/19 Fenofibrate Nanocrystallized [Triglide] 160 mg PO DAILY 03/04/19 Fluticasone/Salmeterol [Advair 250-50 Diskus 14 Dose/Diskus] 1 puff IH Q12 03/04/19 Furosemide [Lasix 20 mg Tablet] 20 mg PO BID 03/04/19 Gabapentin [Neurontin] 600 mg PO Q12 03/04/19 Hydroxyzine Pamoate [Vistaril 50 mg Capsule] 50 mg PO Q8HP PRN 03/04/19 Insulin Lispro [Humalog Insulin (Lispro) 100 unit/mL] 0 unit SQ .SLIDING SCALE 03/04/19 Levalbuterol HCl [Levalbuterol Concentrate] 1.25 mg NEB RTQ6 03/04/19 Linaclotide [Linzess] 72 mcg PO DAILY 03/04/19 Losartan Potassium [Cozaar 25 mg Tablet] 25 mg PO DAILY 03/04/19 Montelukast Sodium [Singulair 10 mg Tablet] 10 mg PO QPM 03/04/19 Nitroglycerin [Nitrostat 0.4 mg (1/150 Gr) Tabs 25/Bottle] 0.4 mg PO Q5MP PRN 03/04/19 Omeprazole 40 mg PO BID 03/04/19 Ondansetron HCl [Zofran 8 mg Tablet] 8 mg PO Q4HP PRN 03/04/19 Oxycodone HCl/Acetaminophen [Percocet 5-325 mg Tablet] 1 tab PO Q6HP PRN 03/04/19 Rosuvastatin Calcium [Crestor] 40 mg PO QPM 03/04/19 Amlodipine Besylate [Norvasc 5 mg Tablet] 5 mg PO DAILY #30 tablet 03/12/19 Insulin Glargine,Hum.rec.anlog [Lantus Insulin 100 Unit/1 ml 10 ml] 18 unit SUBCUT QHS #1 bottle 03/12/19 Isosorbide Mononitrate [Imdur 30 mg Tablet.er] 30 mg PO DAILY #30 tab.er.24h 03/12/19 Metoprolol Succinate [Toprol Xl 25 mg Tab.sr] 50 mg PO DAILY #60 tab.sr.24h 03/12/19 Patiromer Calcium Sorbitex [Veltassa 8.4 gm Susp Packet] 8.4 gm PO DAILY@1700 #30 packet 03/12/19 Allergies/Adverse Reactions: amoxicillin trihydrate [From Augmentin] Allergy (Severe, Verified 01/06/19 14:12) stomach cramps, n and v, rash butalbital [From Fiorinal] Allergy (Unknown, Verified 01/06/19 14:12) rash metformin HCl [From Glucophage] Allergy (Unknown, Verified 01/06/19 14:12) rash Potassium Clavulanate * [From Augmentin] Adverse Reaction (Unknown, Verified 01/06/19 14:12) nausea, vomit, epig pain Review of Systems Constitutional: PRESENT: fatigue, weakness, weight gain. ABSENT: fever(s) Eyes: ABSENT: visual disturbances Ears: ABSENT: hearing changes Nose, Mouth, and Throat: ABSENT: mouth pain, sore throat Cardiovascular: PRESENT: dyspnea on exertion, edema. ABSENT: chest pain, orthropnea, palpitations Respiratory: PRESENT: dyspnea. ABSENT: cough, hemoptysis Gastrointestinal: PRESENT: constipation, nausea. ABSENT: abdominal pain, diarrhea, dysphagia, hematemesis, hematochezia, melena, vomiting Genitourinary: ABSENT: dysuria, hematuria Musculoskeletal: ABSENT: deformity, joint swelling Integumentary: ABSENT: lesions, pruritus, rash Neurological: ABSENT: abnormal movements, abnormal speech, confusion, convulsions, focal weakness, frequent falls Endocrine: ABSENT: heat intolerance, polydipsia Hematologic/Lymphatic: ABSENT: easy bleeding, easy bruising, lymphadenopathy Physical Exam Vital Signs: Temp Pulse Resp BP Pulse Ox 98.0 F 71 18 128/43 H 100 03/19/19 21:32 03/19/19 21:32 03/19/19 21:32 03/19/19 21:32 03/19/19 21:32 Intake & Output 03/18/19 03/19/19 03/20/19 06:59 06:59 06:59 Intake Total 2320 444 Output Total 575 550 Balance 1745 -106 Weight 94.5 kg General appearance: PRESENT: no acute distress Eye exam: PRESENT: EOMI, PERRLA Ear exam: PRESENT: normal external ear exam Mouth exam: PRESENT: moist, neck supple Neck exam: ABSENT: meningismus, tenderness, thyromegaly, tracheal deviation Respiratory exam: PRESENT: clear to auscultation cheli. ABSENT: crackles Cardiovascular exam: PRESENT: +S1, +S2, systolic murmur GI/Abdominal exam: PRESENT: normal bowel sounds, soft. ABSENT: organomegaly, tenderness Extremities exam: PRESENT: +1 edema Neurological exam: PRESENT: alert, awake, oriented to person, oriented to place, oriented to time, other - Asterixis +. Skin exam: ABSENT: cyanosis, erythema, mottled, rash Results Laboratory Results: 03/19/19 07:00 03/19/19 13:52 03/18/19 03/19/19 03/19/19 22:40 07:00 07:00 WBC 4.8 RBC 3.07 L Hgb 9.0 L Hct 27.1 L MCV 88 MCH 29.2 MCHC 33.1 RDW 15.6 H Plt Count 125 L Seg Neutrophils % 55.4 Lymphocytes % 28.6 Monocytes % 11.1 Eosinophils % 4.4 Basophils % 0.5 Absolute Neutrophils 2.6 Absolute Lymphocytes 1.4 Absolute Monocytes 0.5 Absolute Eosinophils 0.2 Absolute Basophils 0.0 Sodium 129.4 L 128.2 L Potassium 5.1 H 4.8 Chloride 94 L 94 L Carbon Dioxide 25 23 Anion Gap 10 11 BUN 61 H 61 H Creatinine 4.44 H 4.27 H Est GFR ( Amer) 12 L 12 L Est GFR (Non-Af Amer) 10 L 10 L Glucose 123 H 90 Calcium 7.4 L 7.3 L Magnesium 1.8 03/19/19 13:52 WBC RBC Hgb Hct MCV MCH MCHC RDW Plt Count Seg Neutrophils % Lymphocytes % Monocytes % Eosinophils % Basophils % Absolute Neutrophils Absolute Lymphocytes Absolute Monocytes Absolute Eosinophils Absolute Basophils Sodium 127.0 L Potassium 4.9 Chloride 91 L Carbon Dioxide 22 Anion Gap 14 BUN 58 H Creatinine 3.86 H Est GFR ( Amer) 14 L Est GFR (Non-Af Amer) 12 L Glucose 112 H Calcium 7.1 L Magnesium 03/19/19 10:12 Creatine Kinase 65 Impressions: Renal Ultrasound 03/19/19 00:00 IMPRESSION: No acute finding. Evaluation of the left kidney and bladder quite limited. Chest X-Ray 03/19/19 10:42 IMPRESSION: NO ACUTE RADIOGRAPHIC FINDING IN THE CHEST. Abdomen/Pelvis CT 03/19/19 16:38 IMPRESSION: Small residual left pleural effusion and basilar subsegmental atelectasis. Similar scattered small amounts of free fluid.New Rivera catheter in the bladder. Assessment & Plan - Diagnosis (1) Acute on chronic renal failure Is this a current diagnosis for this admission?: Yes Plan: She is showing features suggestive of uremia. Electrolytes are abnormal with hyponatremia and hyperkalemia and early metabolic acidosis. Fortunately her hyperkalemia and metabolic acidosis are being corrected but her sodium is still on the lower side. She is showing uremia and will have to see if she is able to respond to conservative management otherwise will have this consider starting on dialysis tomorrow. Did discuss this with the patient and her and they are willing to proceed accordingly. (2) Hyperkalemia Is this a current diagnosis for this admission?: Yes Plan: Currently being treated and has responded. (3) Hyponatremia Is this a current diagnosis for this admission?: Yes Plan: Will put on fluid restriction. (4) CHF (congestive heart failure) Qualifiers: Heart failure type: unspecified Heart failure chronicity: acute on chronic Qualified Code(s): I50.9 - Heart failure, unspecified Is this a current diagnosis for this admission?: No Plan: Even though she does not have radiological signs she is showing signs of clinical congestive heart failure. Some of the edema is peripheral from interstitial edema secondary to the lower albumin. Started on diuretics and monitor. (5) CKD (chronic kidney disease), stage IV Plan: Underlying CKD stage III/IV with current acute decompensation. She has a Rivera catheter for decompression. She is showing signs of fluid overload and left leg imbalances. See if she will respond to conservative management but otherwise might need dialysis. (6) Diabetes mellitus type 2 in obese Is this a current diagnosis for this admission?: No Plan: Advised tight control. (7) Anemia of chronic renal failure, stage 3 (moderate) Plan: Has been begun on erythropoietin. Monitor.
[2019-03-20] MEDS: IPRATROPIUM/ALBUTEROL 0.5-2.5 MG/3 ML AMPUL NEB SCH ×5 (00:13→16:09)
[2019-03-20] MEDS: HEPARIN SOD (PORCINE) 5,000 UNIT/ML 1 ML SYRINGE SUBCUT SCH ×3 (05:08→22:25)
[2019-03-20] MEDS: FUROSEMIDE INJ/PF 20 MG/2 ML SDV IV SCH ×3 (05:13→22:33)
[2019-03-20] MEDS: OXYCODONE-ACETAMINOPHEN 5-325 MG TABLET PO PRN ×3 (06:07→22:36)
[2019-03-20 07:11] LABS: ABSOLUTE EOSINOPHILS # (AUTO) 0.2 10^3/uL (0.0-0.6); ABSOLUTE LYMPHOCYTES (AUTO) 0.9 10^3/uL (0.5-4.7); ABSOLUTE MONOCYTES (AUTO) 0.5 10^3/uL (0.1-1.4); ABSOLUTE NEUT (AUTO) 2.3 10^3/uL (1.7-8.2); BASOPHILS % (AUTO) 0.4 % (0-2); EOSINOPHILS % (AUTO) 4.1 % (0-6); HEMATOCRIT 26.9 % (36.0-47.0); HEMOGLOBIN 9.1 g/dL (12.0-15.5); LYMPHOCYTES % (AUTO) 23.4 % (13-45); MEAN CORPUSCULAR HEMOGLOBIN 29.6 pg (27.0-33.4); MEAN CORPUSCULAR HGB CONC 33.7 g/dL (32.0-36.0); MEAN CORPUSCULAR VOLUME 88 fl (80-97); MONOCYTES % (AUTO) 12.3 % (3-13); PLATELET COUNT 145 10^3/uL (150-450); RED BLOOD COUNT 3.07 10^6/uL (3.72-5.28); RED CELL DISTRIBUTION WIDTH 15.8 % (11.5-14.0); SEGMENTED NEUTROPHILS % (AUTO) 59.8 % (42-78); TOTAL CELLS COUNTED % (AUTO) 100 %; WHITE BLOOD COUNT 3.8 10^3/uL (4.0-10.5)
[2019-03-20] MEDS: INSULIN LISPRO 100 UNIT/ML 3 ML VIAL SUBCUT SCH ×4 (08:02→22:26)
[2019-03-20 09:23] LABS: ANION GAP 12 (5-19); BLOOD UREA NITROGEN 58 mg/dL (7-20); CALCIUM 7.7 mg/dL (8.4-10.2); CARBON DIOXIDE 24 mmol/L (22-30); CHLORIDE 92 mmol/L (98-107); GLUCOSE 127 mg/dL (75-110); POTASSIUM 4.8 mmol/L (3.6-5.0); SODIUM 128.1 mmol/L (137-145)
[2019-03-20] MEDS: GABAPENTIN 300 MG CAPSULE PO SCH (09:53)
[2019-03-20] MEDS: FENOFIBRATE NANOCRYSTALLIZED 145 MG TABLET PO SCH (09:53)
[2019-03-20] MEDS: EZETIMIBE 10 MG TABLET PO SCH (09:53)
[2019-03-20] MEDS: ASPIRIN 81 MG TABLET, CHEWABLE PO SCH (09:53)
[2019-03-20] MEDS: FLUTICASONE/VILANTEROL 200-25 MCG/DOSE IH SCH (09:53)
[2019-03-20] MEDS: DOCUSATE SODIUM 100 MG CAPSULE PO SCH ×2 (09:53→17:42)
[2019-03-20] MEDS: CLOPIDOGREL BISULFATE 75 MG TABLET PO SCH (09:53)
--- NOTE | 2019-03-20 11:58 | PDOC PROGRESS REPORT ---
Subjective Progress Note for:: 03/20/19 Reason For Visit: Patient seen today.Patient complains of having nausea vomiting since this morning. She had a partial response to yesterday's soapsuds enema. She is also got this persisting left lower quadrant pain. No history of any diarrhea. No complaints of any fever chills or Reiger's. Still making good amounts of urine. Labs and medications were reviewed with the patient that shows improving renal numbers. Physical Exam Vital Signs: Temp Pulse Resp BP Pulse Ox 97.7 F 71 16 95/22 L 95 03/20/19 07:57 03/20/19 08:21 03/20/19 08:21 03/20/19 07:57 03/20/19 08:21 Intake & Output 03/19/19 03/20/19 03/21/19 06:59 06:59 06:59 Intake Total 2320 786 Output Total 575 2275 Balance 1745 -1489 Weight 94.5 kg 95.4 kg General appearance: PRESENT: no acute distress Respiratory exam: PRESENT: clear to auscultation cheli, decreased breath sounds. ABSENT: crackles Cardiovascular exam: PRESENT: +S1, +S2, systolic murmur GI/Abdominal exam: PRESENT: normal bowel sounds, soft, tenderness - Left lower quadrant. Not firm. Bowel sounds are appreciated.. ABSENT: organomegaly Neurological exam: PRESENT: alert, awake, oriented to person, oriented to place Psychiatric exam: PRESENT: depressed Skin exam: ABSENT: cyanosis, erythema, mottled, rash Results Laboratory Results: 03/20/19 06:50 03/20/19 06:50 03/19/19 03/20/19 03/20/19 13:52 06:50 06:50 WBC 3.8 L RBC 3.07 L Hgb 9.1 L Hct 26.9 L MCV 88 MCH 29.6 MCHC 33.7 RDW 15.8 H Plt Count 145 L Seg Neutrophils % 59.8 Lymphocytes % 23.4 Monocytes % 12.3 Eosinophils % 4.1 Basophils % 0.4 Absolute Neutrophils 2.3 Absolute Lymphocytes 0.9 Absolute Monocytes 0.5 Absolute Eosinophils 0.2 Absolute Basophils 0.0 Sodium 127.0 L Potassium 4.9 Chloride 91 L Carbon Dioxide 22 Anion Gap 14 BUN 58 H Creatinine 3.86 H Est GFR ( Amer) 14 L Est GFR (Non-Af Amer) 12 L Glucose 112 H Calcium 7.1 L Magnesium 1.8 03/20/19 06:50 WBC RBC Hgb Hct MCV MCH MCHC RDW Plt Count Seg Neutrophils % Lymphocytes % Monocytes % Eosinophils % Basophils % Absolute Neutrophils Absolute Lymphocytes Absolute Monocytes Absolute Eosinophils Absolute Basophils Sodium 128.1 L Potassium 4.8 Chloride 92 L Carbon Dioxide 24 Anion Gap 12 BUN 58 H Creatinine 3.65 H Est GFR ( Amer) 15 L Est GFR (Non-Af Amer) 12 L Glucose 127 H Calcium 7.7 L Magnesium 03/18/19 11:10 Catheterized Urine Urine Culture - Final NO GROWTH 2 DAYS 03/19/19 10:12 Creatine Kinase 65 Impressions: Renal Ultrasound 03/19/19 00:00 IMPRESSION: No acute finding. Evaluation of the left kidney and bladder quite limited. Chest X-Ray 03/19/19 10:42 IMPRESSION: NO ACUTE RADIOGRAPHIC FINDING IN THE CHEST. Abdomen/Pelvis CT 03/19/19 16:38 IMPRESSION: Small residual left pleural effusion and basilar subsegmental atelectasis. Similar scattered small amounts of free fluid.New Rivera catheter in the bladder. Assessment & Plan - Diagnosis (1) Acute on chronic renal failure Is this a current diagnosis for this admission?: Yes Plan: Nonoliguric. Improving renal numbers. Continue on IV diuretics. However her nausea vomiting needs to be sorted out because otherwise she is going to go into prerenal failure. Discussed with Dr. Harvey. (2) Hyperkalemia Is this a current diagnosis for this admission?: Yes Plan: Resolved. (3) Hyponatremia Is this a current diagnosis for this admission?: Yes Plan: Status quo. Continue to monitor. (4) CHF (congestive heart failure) Qualifiers: Heart failure type: unspecified Heart failure chronicity: acute on chronic Qualified Code(s): I50.9 - Heart failure, unspecified Is this a current diagnosis for this admission?: No Plan: Currently stable. She is not in overt decompensation. I would continue on the diuretics for the moment. (5) CKD (chronic kidney disease), stage IV Plan: Some improving renal numbers and she is nonoliguric. No acute indications for renal replacements currently. I am off for the weekend and Dr. Serra will be on Saturday. (6) Diabetes mellitus type 2 in obese Is this a current diagnosis for this admission?: No Plan: Advised tight control. (7) Anemia of chronic renal failure, stage 3 (moderate) Plan: Begun on erythropoietin. Monitor. (8) Nausea and vomiting Plan: She has began to have nausea vomiting as of late this morning. She says she threw up her lunch but she did not eat much. She has also got associated left lower quadrant pain. Concerning is whether she might be developing acute on chronic diverticulitis. Discussed with Dr. Harvey. (9) Constipation Plan: In conjunction with left lower quadrant pain. She had a partial response to soapsuds enema yesterday. 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 (10) Hypertension Is this a current diagnosis for this admission?: No Plan: Currently low normal without any antihypertensives. Monitor.
[2019-03-20] MEDS: ONDANSETRON 4 MG TAB.RAPDIS PO PRN (13:01)
--- NOTE | 2019-03-20 16:54 | PDOC PROGRESS REPORT ---
Subjective Progress Note for:: 03/20/19 Subjective:: This is a 73 year old female past medical history of CKD stage IV nonoliguric, anemia of CKD, hyperkalemia, morbid obesity, retention, CAD status post CABG in 2001 followed by 1 a stent placement in 2002, diabetes and hypertension who was admitted here at [facility] on 03/04/2019 for hyperkalemia, fatigue, acute on chronic renal failure, UTI and was transferred to group home on 03/09/2019. She presented with progressive weakness, dizziness, increased abdominal girth, persistent left lower quadrant abdominal pain, decreased urine output, nausea and anorexia. In the ER, she was found to have a sodium of 126.7, potassium 5.9, creatinine of 4.63 from 1.97 on 03/10/2019. She was also found to be hypotensive at 84/48 which improved to 110/51 after receiving 2 L of IV fluids. 03/19: This morning, she says she still feels weak but feels a little better today. Denies chest pain or SOB. She is making urine and had 575 cc of urine overnight. She says she was having poor oral intake at the group home. She complains of left lower quadrant pain. 03/20: No acute event overnight. She says she continues to feel better today and that the weakness has improved. Creatinine still elevated albeit slightly improved. She is having adequate urine output. Discussed with nephrology who has recommended diuresing the patient in the next 48 hrs. Reason For Visit: HYPERKALEMIAHYPONATREMIA,ROSA Physical Exam Vital Signs: Temp Pulse Resp BP Pulse Ox 98.3 F 80 16 108/35 L 100 03/20/19 12:15 03/20/19 14:00 03/20/19 12:15 03/20/19 12:15 03/20/19 12:15 Intake & Output 03/19/19 03/20/19 03/21/19 06:59 06:59 06:59 Intake Total 2320 786 Output Total 575 2275 Balance 1745 -1489 Weight 208 lb 5.389 oz 210 lb 5.136 oz General appearance: PRESENT: no acute distress, well-developed, well-nourished Head exam: PRESENT: atraumatic, normocephalic Eye exam: PRESENT: conjunctiva pink, EOMI, PERRLA. ABSENT: scleral icterus Ear exam: PRESENT: normal external ear exam Mouth exam: PRESENT: moist, tongue midline Neck exam: ABSENT: carotid bruit, JVD, lymphadenopathy, thyromegaly Respiratory exam: PRESENT: clear to auscultation cheli. ABSENT: rales, rhonchi, wheezes Cardiovascular exam: PRESENT: RRR. ABSENT: diastolic murmur, rubs, systolic murmur Pulses: PRESENT: normal dorsalis pedis pul GI/Abdominal exam: PRESENT: normal bowel sounds, soft. ABSENT: distended, guarding, mass, organolmegaly, rebound, tenderness Rectal exam: PRESENT: deferred Extremities exam: PRESENT: +1 edema Neurological exam: PRESENT: alert, awake, oriented to person, oriented to place, oriented to time, oriented to situation, CN II-XII grossly intact. ABSENT: motor sensory deficit Results Laboratory Results: 03/20/19 06:50 03/20/19 06:50 03/20/19 03/20/19 03/20/19 06:50 06:50 06:50 WBC 3.8 L RBC 3.07 L Hgb 9.1 L Hct 26.9 L MCV 88 MCH 29.6 MCHC 33.7 RDW 15.8 H Plt Count 145 L Seg Neutrophils % 59.8 Lymphocytes % 23.4 Monocytes % 12.3 Eosinophils % 4.1 Basophils % 0.4 Absolute Neutrophils 2.3 Absolute Lymphocytes 0.9 Absolute Monocytes 0.5 Absolute Eosinophils 0.2 Absolute Basophils 0.0 Sodium 128.1 L Potassium 4.8 Chloride 92 L Carbon Dioxide 24 Anion Gap 12 BUN 58 H Creatinine 3.65 H Est GFR ( Amer) 15 L Est GFR (Non-Af Amer) 12 L Glucose 127 H Calcium 7.7 L Magnesium 1.8 03/18/19 11:10 Catheterized Urine Urine Culture - Final NO GROWTH 2 DAYS 03/19/19 10:12 Creatine Kinase 65 Impressions: Renal Ultrasound 03/19/19 00:00 IMPRESSION: No acute finding. Evaluation of the left kidney and bladder quite limited. Chest X-Ray 03/19/19 10:42 IMPRESSION: NO ACUTE RADIOGRAPHIC FINDING IN THE CHEST. Abdomen/Pelvis CT 03/19/19 16:38 IMPRESSION: Small residual left pleural effusion and basilar subsegmental atelectasis. Similar scattered small amounts of free fluid.New Rivera catheter in the bladder. Assessment and Plan - Diagnosis (1) Acute on chronic renal failure Is this a current diagnosis for this admission?: Yes Plan: Possibly pre-renal from poor intake and ATN from hypotension. Creatinine improved down to 3.8 from 4.6. 03/20: Creatinine still elevated albeit slightly improved. She is having adequate urine output. Discussed with nephrology who deems patient is more on the hypervolemic side at this time and has recommended diuresing the patient in the next 48 hrs. (2) Hyperkalemia Is this a current diagnosis for this admission?: Yes Plan: Resolved. She was given hyperkalemia cocktail in the ER. (3) Hyponatremia Is this a current diagnosis for this admission?: Yes Plan: Sodium up at 128 from 127 yesterday. (4) Hypotension Is this a current diagnosis for this admission?: Yes Plan: Resolved. - Time Time Spent with patient: 25-34 minutes
[2019-03-20] MEDS: ATORVASTATIN CALCIUM 40 MG TABLET PO SCH (17:42)
[2019-03-20] MEDS ORDERED: NITROGLYCERIN 0.4 MG/TAB 25 TAB/BOTTLE SL ONE (19:15)
[2019-03-20] MEDS ORDERED: LACTULOSE SYRUP 20 GM/30 ML UDCUP PO ONE (20:15)
[2019-03-20 21:27] LABS: CREATINE KINASE MB 2.05 ng/mL (<4.55)
[2019-03-20 21:32] LABS: TROPONIN I < 0.012 ng/mL
[2019-03-20] MEDS: POLYETHYLENE GLYCOL 3350 POWDER 17 GM/1 PACKET PO SCH (22:04)
--- NOTE | 2019-03-20 22:33 | EKG REPORT ---
SEVERITY:- ABNORMAL ECG - SINUS RHYTHM NONSPECIFIC INTRAVENTRICULAR CONDUCTION DELAY LOW VOLTAGE IN FRONTAL LEADS BORDERLINE R WAVE PROGRESSION, ANTERIOR LEADS : Confirmed by: Glenys Quesada MD 20-Mar-2019 22:32:18
[2019-03-20] MEDS: INSULIN GLARGINE,HUM.REC.ANLOG 1,000 UNIT/10 ML VIAL SUBCUT SCH (22:34)
[2019-03-20] MEDS: FAMOTIDINE 20 MG TABLET PO SCH (22:35)
[2019-03-20 23:28] LABS: ANION GAP 10 (5-19); BLOOD UREA NITROGEN 54 mg/dL (7-20); CALCIUM 8.1 mg/dL (8.4-10.2); CARBON DIOXIDE 26 mmol/L (22-30); CHLORIDE 92 mmol/L (98-107); GLUCOSE 113 mg/dL (75-110); SODIUM 128.2 mmol/L (137-145)
[2019-03-21 04:47] LABS: ABSOLUTE EOSINOPHILS # (AUTO) 0.2 10^3/uL (0.0-0.6); ABSOLUTE LYMPHOCYTES (AUTO) 0.9 10^3/uL (0.5-4.7); ABSOLUTE MONOCYTES (AUTO) 0.4 10^3/uL (0.1-1.4); ABSOLUTE NEUT (AUTO) 2.4 10^3/uL (1.7-8.2); BASOPHILS % (AUTO) 0.6 % (0-2); EOSINOPHILS % (AUTO) 4.9 % (0-6); HEMATOCRIT 29.4 % (36.0-47.0); HEMOGLOBIN 9.8 g/dL (12.0-15.5); LYMPHOCYTES % (AUTO) 22.6 % (13-45); MEAN CORPUSCULAR HEMOGLOBIN 29.2 pg (27.0-33.4); MEAN CORPUSCULAR HGB CONC 33.3 g/dL (32.0-36.0); MEAN CORPUSCULAR VOLUME 88 fl (80-97); MONOCYTES % (AUTO) 9.9 % (3-13); PLATELET COUNT 150 10^3/uL (150-450); RED BLOOD COUNT 3.36 10^6/uL (3.72-5.28); RED CELL DISTRIBUTION WIDTH 15.4 % (11.5-14.0); TOTAL CELLS COUNTED % (AUTO) 100 %; WHITE BLOOD COUNT 3.9 10^3/uL (4.0-10.5)
[2019-03-21 05:11] LABS: ANION GAP 12 (5-19); BLOOD UREA NITROGEN 55 mg/dL (7-20); CALCIUM 8.1 mg/dL (8.4-10.2); CARBON DIOXIDE 26 mmol/L (22-30); CHLORIDE 94 mmol/L (98-107); GLUCOSE 94 mg/dL (75-110); POTASSIUM 4.9 mmol/L (3.6-5.0)
[2019-03-21] MEDS: FUROSEMIDE INJ/PF 20 MG/2 ML SDV IV SCH ×3 (06:01→21:55)
[2019-03-21] MEDS: HEPARIN SOD (PORCINE) 5,000 UNIT/ML 1 ML SYRINGE SUBCUT SCH ×3 (06:01→21:55)
[2019-03-21] MEDS: OXYCODONE-ACETAMINOPHEN 5-325 MG TABLET PO PRN ×3 (06:28→21:56)
[2019-03-21] MEDS: INSULIN LISPRO 100 UNIT/ML 3 ML VIAL SUBCUT SCH ×4 (08:10→21:54)
[2019-03-21] MEDS: FENOFIBRATE NANOCRYSTALLIZED 145 MG TABLET PO SCH (10:30)
[2019-03-21] MEDS: GABAPENTIN 300 MG CAPSULE PO SCH (10:30)
[2019-03-21] MEDS: DOCUSATE SODIUM 100 MG CAPSULE PO SCH ×2 (10:30→17:28)
[2019-03-21] MEDS: POLYETHYLENE GLYCOL 3350 POWDER 17 GM/1 PACKET PO SCH (10:30)
[2019-03-21] MEDS: EZETIMIBE 10 MG TABLET PO SCH (10:30)
[2019-03-21] MEDS: CLOPIDOGREL BISULFATE 75 MG TABLET PO SCH (10:30)
[2019-03-21] MEDS: FLUTICASONE/VILANTEROL 200-25 MCG/DOSE IH SCH (10:31)
[2019-03-21] MEDS: ASPIRIN 81 MG TABLET, CHEWABLE PO SCH (10:31)
[2019-03-21] MEDS: IPRATROPIUM/ALBUTEROL 0.5-2.5 MG/3 ML AMPUL NEB PRN (10:38)
[2019-03-21] MEDS: ONDANSETRON 4 MG TAB.RAPDIS PO PRN ×2 (13:15→17:28)
--- NOTE | 2019-03-21 14:07 | PDOC PROGRESS REPORT ---
Subjective Progress Note for:: 03/21/19 Subjective:: This is a 73 year old female past medical history of CKD stage IV nonoliguric, anemia of CKD, hyperkalemia, morbid obesity, retention, CAD status post CABG in 2001 followed by 1 a stent placement in 2002, diabetes and hypertension who was admitted here at [facility] on 03/04/2019 for hyperkalemia, fatigue, acute on chronic renal failure, UTI and was transferred to [facility] on 03[facility]09/[facility]. She presented with progressive weakness, dizziness, increased abdominal girth, persistent left lower quadrant abdominal pain, decreased urine output, nausea and anorexia. In the ER, she was found to have a sodium of 126.7, potassium 5.9, creatinine of 4.63 from 1.97 on 03/10/2019. She was also found to be hypotensive at 84/48 which improved to 110/51 after receiving 2 L of IV fluids. 03/19: This morning, she says she still feels weak but feels a little better today. Denies chest pain or SOB. She is making urine and had 575 cc of urine overnight. She says she was having poor oral intake at the [facility]. She complains of left lower quadrant pain. 03/20: She says she continues to feel better today and that the weakness has improved. Creatinine still elevated albeit slightly improved. She is having adequate urine output. Discussed with nephrology who has recommended diuresing the patient in the next 48 hrs. 03/21: Patient complained of midsternal chest pain last night. EKG, troponin and CKMB were all normal. Appears she has been having this chest pain which she describe as pressure like for year. This morning, she says she continues feels better. Creatinine has improved down to 2.98 from 3.16 on diuresis. Reason For Visit: HYPERKALEMIAHYPONATREMIA,ROSA Physical Exam Vital Signs: Temp Pulse Resp BP Pulse Ox 98.7 F 87 16 106/72 96 03/21/19 11:56 03/21/19 11:56 03/21/19 11:56 03/21/19 11:56 03/21/19 11:56 Intake & Output 03/20/19 03/21/19 03/22/19 06:59 06:59 06:59 Intake Total 786 857 237 Output Total 2275 4000 900 Balance -5656 -8542 -663 Weight 210 lb 5.136 oz 203 lb 7.787 oz General appearance: PRESENT: no acute distress, well-developed, well-nourished Head exam: PRESENT: atraumatic, normocephalic Eye exam: PRESENT: conjunctiva pink, EOMI, PERRLA. ABSENT: scleral icterus Ear exam: PRESENT: normal external ear exam Mouth exam: PRESENT: moist, tongue midline Neck exam: ABSENT: carotid bruit, JVD, lymphadenopathy, thyromegaly Respiratory exam: PRESENT: clear to auscultation cheli. ABSENT: rales, rhonchi, wheezes Cardiovascular exam: PRESENT: RRR. ABSENT: diastolic murmur, rubs, systolic murmur Pulses: PRESENT: normal dorsalis pedis pul GI/Abdominal exam: PRESENT: normal bowel sounds, soft. ABSENT: distended, guarding, mass, organolmegaly, rebound, tenderness Rectal exam: PRESENT: deferred Extremities exam: PRESENT: +1 edema Neurological exam: PRESENT: alert, awake, oriented to person, oriented to place, oriented to time, oriented to situation, CN II-XII grossly intact. ABSENT: motor sensory deficit Results Laboratory Results: 03/21/19 04:21 03/21/19 04:21 03/20/19 03/20/19 03/21/19 06:50 22:55 04:21 WBC 3.9 L RBC 3.36 L Hgb 9.8 L Hct 29.4 L MCV 88 MCH 29.2 MCHC 33.3 RDW 15.4 H Plt Count 150 Seg Neutrophils % 62.0 Lymphocytes % 22.6 Monocytes % 9.9 Eosinophils % 4.9 Basophils % 0.6 Absolute Neutrophils 2.4 Absolute Lymphocytes 0.9 Absolute Monocytes 0.4 Absolute Eosinophils 0.2 Absolute Basophils 0.0 Sodium 128.2 L Potassium 5.0 Chloride 92 L Carbon Dioxide 26 Anion Gap 10 BUN 54 H Creatinine 3.16 H Est GFR ( Amer) 18 L Est GFR (Non-Af Amer) 14 L Glucose 113 H Serum Osmolality 281 Calcium 8.1 L Magnesium 03/21/19 04:21 WBC RBC Hgb Hct MCV MCH MCHC RDW Plt Count Seg Neutrophils % Lymphocytes % Monocytes % Eosinophils % Basophils % Absolute Neutrophils Absolute Lymphocytes Absolute Monocytes Absolute Eosinophils Absolute Basophils Sodium 132.0 L Potassium 4.9 Chloride 94 L Carbon Dioxide 26 Anion Gap 12 BUN 55 H Creatinine 2.98 H Est GFR ( Amer) 19 L Est GFR (Non-Af Amer) 16 L Glucose 94 Serum Osmolality Calcium 8.1 L Magnesium 2.0 03/18/19 11:10 Catheterized Urine Urine Culture - Final NO GROWTH 2 DAYS 03/19/19 03/20/19 10:12 20:25 Creatine Kinase 65 CK-MB (CK-2) 2.05 Troponin I < 0.012 Impressions: Renal Ultrasound 03/19/19 00:00 IMPRESSION: No acute finding. Evaluation of the left kidney and bladder quite limited. Chest X-Ray 03/19/19 10:42 IMPRESSION: NO ACUTE RADIOGRAPHIC FINDING IN THE CHEST. Abdomen/Pelvis CT 03/19/19 16:38 IMPRESSION: Small residual left pleural effusion and basilar subsegmental atelectasis. Similar scattered small amounts of free fluid.New Rivera catheter in the bladder. Assessment and Plan - Diagnosis (1) Acute on chronic renal failure Is this a current diagnosis for this admission?: Yes Plan: Creatinine improved down to 3.8 from 4.6. 03/20: Creatinine still elevated albeit slightly improved. She is having adequate urine output. Discussed with nephrology who deems patient is more on the hypervolemic side at this time and has recommended diuresing the patient in the next 48 hrs. 03/21: Creatinine has improved down to 2.98 from 3.16 on diuresis. (2) Hyperkalemia Is this a current diagnosis for this admission?: Yes Plan: Resolved. She was given hyperkalemia cocktail in the ER. (3) Hyponatremia Is this a current diagnosis for this admission?: Yes Plan: Sodium improved to 132. (4) Hypotension Is this a current diagnosis for this admission?: Yes Plan: Resolved. - Time Time Spent with patient: 15-24 minutes
[2019-03-21] MEDS: ATORVASTATIN CALCIUM 40 MG TABLET PO SCH (17:28)
[2019-03-21] MEDS: FAMOTIDINE 20 MG TABLET PO SCH (21:55)
[2019-03-21] MEDS: INSULIN GLARGINE,HUM.REC.ANLOG 1,000 UNIT/10 ML VIAL SUBCUT SCH (21:55)
[2019-03-21 23:26] LABS: ANION GAP 9 (5-19); BLOOD UREA NITROGEN 47 mg/dL (7-20); CALCIUM 8.2 mg/dL (8.4-10.2); CARBON DIOXIDE 29 mmol/L (22-30); CHLORIDE 93 mmol/L (98-107); GLUCOSE 156 mg/dL (75-110); POTASSIUM 4.9 mmol/L (3.6-5.0); SODIUM 130.6 mmol/L (137-145)
[2019-03-22 05:29] LABS: ANION GAP 10 (5-19); BLOOD UREA NITROGEN 48 mg/dL (7-20); CALCIUM 8.5 mg/dL (8.4-10.2); CARBON DIOXIDE 31 mmol/L (22-30); CHLORIDE 95 mmol/L (98-107); GLUCOSE 114 mg/dL (75-110); POTASSIUM 4.9 mmol/L (3.6-5.0); SODIUM 135.5 mmol/L (137-145)
[2019-03-22] MEDS: FUROSEMIDE INJ/PF 20 MG/2 ML SDV IV SCH ×3 (05:36→22:04)
[2019-03-22] MEDS: OXYCODONE-ACETAMINOPHEN 5-325 MG TABLET PO PRN ×2 (05:37→20:37)
[2019-03-22] MEDS: HEPARIN SOD (PORCINE) 5,000 UNIT/ML 1 ML SYRINGE SUBCUT SCH ×3 (05:38→22:04)
[2019-03-22] MEDS: INSULIN LISPRO 100 UNIT/ML 3 ML VIAL SUBCUT SCH ×4 (09:57→22:05)
[2019-03-22] MEDS: EZETIMIBE 10 MG TABLET PO SCH (10:21)
[2019-03-22] MEDS: CLOPIDOGREL BISULFATE 75 MG TABLET PO SCH (10:22)
[2019-03-22] MEDS: DOCUSATE SODIUM 100 MG CAPSULE PO SCH ×2 (10:22→17:00)
[2019-03-22] MEDS: POLYETHYLENE GLYCOL 3350 POWDER 17 GM/1 PACKET PO SCH (10:22)
[2019-03-22] MEDS: GABAPENTIN 300 MG CAPSULE PO SCH (10:22)
[2019-03-22] MEDS: ASPIRIN 81 MG TABLET, CHEWABLE PO SCH (10:22)
[2019-03-22] MEDS: FENOFIBRATE NANOCRYSTALLIZED 145 MG TABLET PO SCH (10:23)
[2019-03-22] MEDS: FLUTICASONE/VILANTEROL 200-25 MCG/DOSE IH SCH (10:23)
[2019-03-22] MEDS: LIDOCAINE 5% (700 MG) TRANSDERMAL ADH..PATCH TP SCH (10:23)
[2019-03-22] MEDS: IPRATROPIUM/ALBUTEROL 0.5-2.5 MG/3 ML AMPUL NEB PRN (11:06)
[2019-03-22] MEDS: ONDANSETRON 4 MG TAB.RAPDIS PO PRN ×2 (13:12→17:35)
--- NOTE | 2019-03-22 14:21 | PDOC PROGRESS REPORT ---
Subjective Progress Note for:: 03/22/19 Subjective:: This is a 73 year old female past medical history of CKD stage IV nonoliguric, anemia of CKD, hyperkalemia, morbid obesity, retention, CAD status post CABG in 2001 followed by 1 a stent placement in 2002, diabetes and hypertension who was admitted here at [facility] on 03/04/2019 for hyperkalemia, fatigue, acute on chronic renal failure, UTI and was transferred to [facility] on 03/09/2019. She presented with progressive weakness, dizziness, increased abdominal girth, persistent left lower quadrant abdominal pain, decreased urine output, nausea and anorexia. In the ER, she was found to have a sodium of 126.7, potassium 5.9, creatinine of 4.63 from 1.97 on 03/10/2019. She was also found to be hypotensive at 84/48 which improved to 110/51 after receiving 2 L of IV fluids. 03/19: This morning, she says she still feels weak but feels a little better today. Denies chest pain or SOB. She is making urine and had 575 cc of urine overnight. She says she was having poor oral intake at the [facility]. She complains of left lower quadrant pain. 03/20: She says she continues to feel better today and that the weakness has improved. Creatinine still elevated albeit slightly improved. She is having adequate urine output. Discussed with nephrology who has recommended diuresing the patient in the next 48 hrs. 03/21: Patient complained of midsternal chest pain last night. EKG, troponin and CKMB were all normal. Appears she has been having this chest pain which she describe as pressure like for year. This morning, she says she continues feels better. Creatinine has improved down to 2.98 from 3.16 on diuresis. 03/22: No acute event overnight. Denies SOB. Creatinine continues to gradually improve and is down to 2.6 from 2.98. She is having adequate urine output. Reason For Visit: HYPERKALEMIAHYPONATREMIA,ROSA Physical Exam Vital Signs: Temp Pulse Resp BP Pulse Ox 98.7 F 72 16 129/51 H 98 03/22/19 11:04 03/22/19 11:04 03/22/19 11:04 03/22/19 11:04 03/22/19 11:04 Intake & Output 03/21/19 03/22/19 03/23/19 06:59 06:59 06:59 Intake Total 857 953 474 Output Total 1901 7740 900 Balance -3143 -3397 -426 Weight 203 lb 7.787 oz 194 lb 7.163 oz General appearance: PRESENT: no acute distress, well-developed, well-nourished Head exam: PRESENT: atraumatic, normocephalic Eye exam: PRESENT: conjunctiva pink, EOMI, PERRLA. ABSENT: scleral icterus Ear exam: PRESENT: normal external ear exam Mouth exam: PRESENT: moist, tongue midline Neck exam: ABSENT: carotid bruit, JVD, lymphadenopathy, thyromegaly Respiratory exam: PRESENT: clear to auscultation cheli. ABSENT: rales, rhonchi, wheezes Cardiovascular exam: PRESENT: RRR. ABSENT: diastolic murmur, rubs, systolic murmur Pulses: PRESENT: normal dorsalis pedis pul Vascular exam: PRESENT: normal capillary refill GI/Abdominal exam: PRESENT: normal bowel sounds, soft. ABSENT: distended, guarding, mass, organolmegaly, rebound, tenderness Rectal exam: PRESENT: deferred Extremities exam: PRESENT: full ROM, +1 edema. ABSENT: calf tenderness, club alana Neurological exam: PRESENT: alert, awake, oriented to person, oriented to place, oriented to time, oriented to situation, CN II-XII grossly intact. ABSENT: motor sensory deficit Results Laboratory Results: 03/21/19 04:21 03/22/19 04:20 03/21/19 03/22/19 23:00 04:20 Sodium 130.6 L 135.5 L Potassium 4.9 4.9 Chloride 93 L 95 L Carbon Dioxide 29 31 H Anion Gap 9 10 BUN 47 H 48 H Creatinine 2.66 H 2.60 H Est GFR ( Amer) 21 L 22 L Est GFR (Non-Af Amer) 18 L 18 L Glucose 156 H 114 H Calcium 8.2 L 8.5 03/19/19 03/20/19 10:12 20:25 Creatine Kinase 65 CK-MB (CK-2) 2.05 Troponin I < 0.012 Impressions: Renal Ultrasound 03/19/19 00:00 IMPRESSION: No acute finding. Evaluation of the left kidney and bladder quite limited. Chest X-Ray 03/19/19 10:42 IMPRESSION: NO ACUTE RADIOGRAPHIC FINDING IN THE CHEST. Abdomen/Pelvis CT 03/19/19 16:38 IMPRESSION: Small residual left pleural effusion and basilar subsegmental atelectasis. Similar scattered small amounts of free fluid.New Rivera catheter in the bladder. Assessment and Plan - Diagnosis (1) Acute on chronic renal failure Is this a current diagnosis for this admission?: Yes Plan: 03/20: Creatinine still elevated albeit slightly improved. She is having adequate urine output. Discussed with nephrology who deems patient is more on the hypervolemic side at this time and has recommended diuresing the patient in the next 48 hrs. 03/21: Creatinine has improved down to 2.98 from 3.16 on diuresis. 03/22: Creatinine continues to gradually improve and is down to 2.6 from 2.98. She is having adequate urine output. (2) Hyperkalemia Is this a current diagnosis for this admission?: Yes Plan: Resolved. She was given hyperkalemia cocktail in the ER. (3) Hyponatremia Is this a current diagnosis for this admission?: Yes Plan: Sodium improved to 132. 5: Now almost resolved. (4) Hypotension Is this a current diagnosis for this admission?: Yes Plan: Resolved. - Time Time Spent with patient: 15-24 minutes
[2019-03-22] MEDS: ATORVASTATIN CALCIUM 40 MG TABLET PO SCH (17:00)
[2019-03-22] MEDS: FAMOTIDINE 20 MG TABLET PO SCH (22:05)
[2019-03-22] MEDS: INSULIN GLARGINE,HUM.REC.ANLOG 1,000 UNIT/10 ML VIAL SUBCUT SCH (22:05)
[2019-03-23] MEDS: PROMETHAZINE HCL INJ 25 MG/1 ML VIAL IV PRN (03:14)
[2019-03-23] MEDS: HEPARIN SOD (PORCINE) 5,000 UNIT/ML 1 ML SYRINGE SUBCUT SCH ×3 (06:03→22:15)
[2019-03-23] MEDS: FUROSEMIDE INJ/PF 20 MG/2 ML SDV IV SCH ×3 (06:03→22:19)
[2019-03-23] MEDS: INSULIN LISPRO 100 UNIT/ML 3 ML VIAL SUBCUT SCH ×4 (08:59→22:17)
[2019-03-23 09:23] LABS: ANION GAP 8 (5-19); BLOOD UREA NITROGEN 42 mg/dL (7-20); CALCIUM 8.6 mg/dL (8.4-10.2); CARBON DIOXIDE 31 mmol/L (22-30); CHLORIDE 95 mmol/L (98-107); GLUCOSE 108 mg/dL (75-110); POTASSIUM 4.7 mmol/L (3.6-5.0); SODIUM 133.5 mmol/L (137-145)
[2019-03-23] MEDS: ONDANSETRON 4 MG TAB.RAPDIS PO PRN (09:37)
[2019-03-23] MEDS: CLOPIDOGREL BISULFATE 75 MG TABLET PO SCH (09:41)
[2019-03-23] MEDS: FLUTICASONE/VILANTEROL 200-25 MCG/DOSE IH SCH (09:41)
[2019-03-23] MEDS: DOCUSATE SODIUM 100 MG CAPSULE PO SCH ×2 (09:41→17:53)
[2019-03-23] MEDS: FENOFIBRATE NANOCRYSTALLIZED 145 MG TABLET PO SCH (09:41)
[2019-03-23] MEDS: ASPIRIN 81 MG TABLET, CHEWABLE PO SCH (09:41)
[2019-03-23] MEDS: POLYETHYLENE GLYCOL 3350 POWDER 17 GM/1 PACKET PO SCH (09:41)
[2019-03-23] MEDS: GABAPENTIN 300 MG CAPSULE PO SCH (09:41)
[2019-03-23] MEDS: EZETIMIBE 10 MG TABLET PO SCH (09:42)
[2019-03-23] MEDS: LIDOCAINE 5% (700 MG) TRANSDERMAL ADH..PATCH TP SCH (09:42)
[2019-03-23] MEDS: IPRATROPIUM/ALBUTEROL 0.5-2.5 MG/3 ML AMPUL NEB PRN (10:19)
--- NOTE | 2019-03-23 13:54 | PDOC PROGRESS REPORT ---
Subjective Progress Note for:: 03/23/19 Subjective:: Patient is doing fairly well. She is making excellent amount of urine anywhere between 3 to 4 L daily for the last 3 days. Patient related that prior to admission she was unable to pass any urine for 3 days. She has history of bladder surgery about 3 years ago and is supposed to follow-up with her urologist at [facility] but missed the appointment because she was admitted in the hospital the last time. She could have had a bladder prolapse but not quite sure. Currently she is feeling better. She is still constipated but is being given medications for that. Reason For Visit: HYPERKALEMIAHYPONATREMIA,ROSA Physical Exam Vital Signs: Temp Pulse Resp BP Pulse Ox 98.4 F 92 18 116/37 L 99 03/23/19 11:55 03/23/19 11:55 03/23/19 11:55 03/23/19 11:55 03/23/19 11:55 Intake & Output 03/22/19 03/23/19 03/24/19 06:59 06:59 06:59 Intake Total 953 1334 Output Total 4350 3000 Balance -6957 -1666 Weight 88.2 kg 85.3 kg Exam: General appearance: PRESENT: no acute distress, cooperative, well-developed, well-nourished Head exam: PRESENT: atraumatic, normocephalic Eye exam: PRESENT: conjunctiva slightly pale, PERRLA. ABSENT: scleral icterus Neck exam: ABSENT: JVD Respiratory exam: PRESENT: Normal breath sounds. ABSENT: crackles, rales, rhonchi, unlabored, wheezes Cardiovascular exam: PRESENT: Regular rate rhythm -+S1, +S2. ABSENT: diastolic murmur, systolic murmur GI/Abdominal exam: PRESENT: normal bowel sounds, soft. ABSENT: guarding, mass, tenderness Extremities exam: ABSENT: No edema Neurological exam: PRESENT: alert, awake, oriented to person, place and time. Skin exam: PRESENT: dry, warm, Cardiovascular exam: PRESENT: +S1, +S2, systolic murmur GI/Abdominal exam: PRESENT: normal bowel sounds, soft, tenderness - Left lower quadrant. Not firm. Bowel sounds are appreciated.. ABSENT: organomegaly Results Laboratory Results: 03/21/19 04:21 03/23/19 08:47 03/23/19 08:47 Sodium 133.5 L Potassium 4.7 Chloride 95 L Carbon Dioxide 31 H Anion Gap 8 BUN 42 H Creatinine 2.24 H Est GFR ( Amer) 26 L Est GFR (Non-Af Amer) 22 L Glucose 108 Calcium 8.6 03/18/19 11:15 Blood Blood Culture - Final NO GROWTH IN 5 DAYS 03/18/19 10:10 Blood Blood Culture - Final NO GROWTH IN 5 DAYS 03/19/19 03/20/19 10:12 20:25 Creatine Kinase 65 CK-MB (CK-2) 2.05 Troponin I < 0.012 Impressions: Renal Ultrasound 03/19/19 00:00 IMPRESSION: No acute finding. Evaluation of the left kidney and bladder quite limited. Chest X-Ray 03/19/19 10:42 IMPRESSION: NO ACUTE RADIOGRAPHIC FINDING IN THE CHEST. Abdomen/Pelvis CT 03/19/19 16:38 IMPRESSION: Small residual left pleural effusion and basilar subsegmental atelectasis. Similar scattered small amounts of free fluid.New Rivera catheter in the bladder. Assessment & Plan - Diagnosis (1) Acute on chronic renal failure Qualifiers: Is this a current diagnosis for this admission?: Yes Plan: Currently with excellent urine output on current diuretics. Her lower extremity edema is much better and improved compared to previous 2 hospitalizations. Kidney function continues to improve every day. My concern in this patient is if she was having urinary retention especially that she has had history of bladder surgery not sure if she has had bladder prolapse about 3 years ago per history per patient. I talked to Dr. Harvey today and recommended to make sure that we at least observe the patient for 24 hours without Rivera catheter to see if she is going to pass urine spontaneously. Explained to the patient and her at bedside that if she is really retaining urine then she might need to go home with the indwelling Rivera catheter pending urology follow-up appointment as an outpatient. Advised the to reschedule the patient's appointment with [facility] urology sooner than later. Continue current diuretics and may be able to switch to oral either today or tomorrow. Continue to monitor kidney function, electrolytes and urine output. (2) Anemia in chronic kidney disease (CKD) Is this a current diagnosis for this admission?: Yes Plan: Continue current Procrit dose weekly. Patient had good iron stores from previous work-up. (3) Hyponatremia Is this a current diagnosis for this admission?: Yes Plan: Slowly improving. (4) CHF (congestive heart failure) Qualifiers: Heart failure type: unspecified Heart failure chronicity: acute on chronic Qualified Code(s): I50.9 - Heart failure, unspecified Is this a current diagnosis for this admission?: Yes Plan: Clinically improving with diuresis. (5) CKD (chronic kidney disease), stage IV Is this a current diagnosis for this admission?: Yes (6) Constipation Is this a current diagnosis for this admission?: Yes Plan: On Linzess. (7) Diabetes mellitus type 2 in obese Is this a current diagnosis for this admission?: Yes (8) Hypertension Is this a current diagnosis for this admission?: Yes - Time Time with patient: Greater than 35 minutes
--- NOTE | 2019-03-23 14:18 | PDOC PROGRESS REPORT ---
Subjective Progress Note for:: 03/23/19 Subjective:: This is a 73 year old female past medical history of CKD stage IV nonoliguric, anemia of CKD, hyperkalemia, morbid obesity, retention, CAD status post CABG in 2001 followed by 1 a stent placement in 2002, diabetes and hypertension who was admitted here at [facility] on 03/04/2019 for hyperkalemia, fatigue, acute on chronic renal failure, UTI and was transferred to long term on 03/09/2019. She presented with progressive weakness, dizziness, increased abdominal girth, persistent left lower quadrant abdominal pain, decreased urine output, nausea and anorexia. In the ER, she was found to have a sodium of 126.7, potassium 5.9, creatinine of 4.63 from 1.97 on 03/10/2019. She was also found to be hypotensive at 84/48 which improved to 110/51 after receiving 2 L of IV fluids. 03/19: This morning, she says she still feels weak but feels a little better today. Denies chest pain or SOB. She is making urine and had 575 cc of urine overnight. She says she was having poor oral intake at the long term. She complains of left lower quadrant pain. 03/20: She says she continues to feel better today and that the weakness has improved. Creatinine still elevated albeit slightly improved. She is having adequate urine output. Discussed with nephrology who has recommended diuresing the patient in the next 48 hrs. 03/21: Patient complained of midsternal chest pain last night. EKG, troponin and CKMB were all normal. Appears she has been having this chest pain which she describe as pressure like for year. This morning, she says she continues feels better. Creatinine has improved down to 2.98 from 3.16 on diuresis. 03/22: Denies SOB. Creatinine continues to gradually improve and is down to 2.6 from 2.98. She is having adequate urine output. 03/23: No acute event overnight. Creatinine continues gradually improve while on diuretics. Discussed with Dr. Serra. There is concern she may have been retaining prior to admission. Plan will be to remove her Rivera this afternoon and see if she is able to continue making adequate urine output. If she develops retention, plan will be to discharge her tomorrow on Rivera with close ff-up and referral to urology. Reduce IV Lasix today from 20 mg q8h to q12h. Reason For Visit: HYPERKALEMIAHYPONATREMIA,ROSA Physical Exam Vital Signs: Temp Pulse Resp BP Pulse Ox 98.9 F 75 18 165/57 H 97 03/23/19 07:54 03/23/19 10:19 03/23/19 10:19 03/23/19 07:54 03/23/19 10:19 Intake & Output 03/22/19 03/23/19 03/24/19 06:59 06:59 06:59 Intake Total 953 1334 Output Total 4350 3000 Balance -7843 -1563 Weight 194 lb 7.163 oz 188 lb 0.869 oz General appearance: PRESENT: no acute distress, well-developed, well-nourished Head exam: PRESENT: atraumatic, normocephalic Eye exam: PRESENT: conjunctiva pink, EOMI, PERRLA. ABSENT: scleral icterus Ear exam: PRESENT: normal external ear exam Mouth exam: PRESENT: moist, tongue midline Neck exam: ABSENT: carotid bruit, JVD, lymphadenopathy, thyromegaly Respiratory exam: PRESENT: clear to auscultation cheli. ABSENT: rales, rhonchi, wheezes Cardiovascular exam: PRESENT: RRR. ABSENT: diastolic murmur, rubs, systolic murmur Pulses: PRESENT: normal dorsalis pedis pul GI/Abdominal exam: PRESENT: normal bowel sounds, soft. ABSENT: distended, guarding, mass, organolmegaly, rebound, tenderness Rectal exam: PRESENT: deferred Extremities exam: PRESENT: +1 edema Neurological exam: PRESENT: alert, awake, oriented to person, oriented to place, oriented to time, oriented to situation, CN II-XII grossly intact. ABSENT: motor sensory deficit Results Laboratory Results: 03/21/19 04:21 03/23/19 08:47 03/23/19 08:47 Sodium 133.5 L Potassium 4.7 Chloride 95 L Carbon Dioxide 31 H Anion Gap 8 BUN 42 H Creatinine 2.24 H Est GFR ( Amer) 26 L Est GFR (Non-Af Amer) 22 L Glucose 108 Calcium 8.6 03/18/19 11:15 Blood Blood Culture - Final NO GROWTH IN 5 DAYS 03/18/19 10:10 Blood Blood Culture - Final NO GROWTH IN 5 DAYS 03/19/19 03/20/19 10:12 20:25 Creatine Kinase 65 CK-MB (CK-2) 2.05 Troponin I < 0.012 Impressions: Renal Ultrasound 03/19/19 00:00 IMPRESSION: No acute finding. Evaluation of the left kidney and bladder quite limited. Chest X-Ray 03/19/19 10:42 IMPRESSION: NO ACUTE RADIOGRAPHIC FINDING IN THE CHEST. Abdomen/Pelvis CT 03/19/19 16:38 IMPRESSION: Small residual left pleural effusion and basilar subsegmental atelectasis. Similar scattered small amounts of free fluid.New Rivera catheter in the bladder. Assessment and Plan - Diagnosis (1) Acute on chronic renal failure Is this a current diagnosis for this admission?: Yes Plan: She was initially deemed volume depleted from poororla intake and was started on IV fluids which did improve her creatinine. 03/20: Creatinine still elevated albeit slightly improved. She is having adequate urine output. Discussed with nephrology who deems patient is more on the hypervolemic side at this time and has recommended stopping Iv fluids and diuresing the patient in the next 48 hrs. 03/21: Creatinine has improved down to 2.98 from 3.16 on diuresis. 03/22: Creatinine continues to gradually improve and is down to 2.6 from 2.98. She is having adequate urine output. 03/23: Creatinine continues gradually improve while on diuretics. Discussed with Dr. Serra. There is concern she may have been retaining prior to admission. Plan will be to remove her Rivera this afternoon and see if she is able to continue making adequate urine output. If she develops retention, plan will be to discharge her tomorrow on Rivera with close ff-up and referral to urology. Reduce IV Lasix today from 20 mg q8h to q12h. (2) Hyperkalemia Is this a current diagnosis for this admission?: Yes Plan: Resolved. She was given hyperkalemia cocktail in the ER. (3) Hyponatremia Is this a current diagnosis for this admission?: Yes Plan: Sodium improved to 132. 512: Now almost resolved. (4) Hypotension Is this a current diagnosis for this admission?: Yes Plan: Resolved. Possible from volume depletion initially from poor oral intake. - Time Time Spent with patient: 15-24 minutes
[2019-03-23] MEDS: ATORVASTATIN CALCIUM 40 MG TABLET PO SCH (17:53)
[2019-03-23] MEDS: FAMOTIDINE 20 MG TABLET PO SCH (22:17)
[2019-03-23] MEDS: INSULIN GLARGINE,HUM.REC.ANLOG 1,000 UNIT/10 ML VIAL SUBCUT SCH (22:18)
[2019-03-23] MEDS: PHARMACY COMMUNICATION ORDER MC SCH (22:20)
[2019-03-23] MEDS: OXYCODONE-ACETAMINOPHEN 5-325 MG TABLET PO PRN (23:15)
[2019-03-24] MEDS: HEPARIN SOD (PORCINE) 5,000 UNIT/ML 1 ML SYRINGE SUBCUT SCH ×3 (05:02→22:13)
[2019-03-24 06:27] LABS: ABSOLUTE EOSINOPHILS # (AUTO) 0.3 10^3/uL (0.0-0.6); ABSOLUTE LYMPHOCYTES (AUTO) 1.3 10^3/uL (0.5-4.7); ABSOLUTE MONOCYTES (AUTO) 0.5 10^3/uL (0.1-1.4); ABSOLUTE NEUT (AUTO) 3.1 10^3/uL (1.7-8.2); BASOPHILS % (AUTO) 0.7 % (0-2); EOSINOPHILS % (AUTO) 5.8 % (0-6); HEMATOCRIT 32.2 % (36.0-47.0); HEMOGLOBIN 10.6 g/dL (12.0-15.5); LYMPHOCYTES % (AUTO) 25.6 % (13-45); MEAN CORPUSCULAR HEMOGLOBIN 28.6 pg (27.0-33.4); MEAN CORPUSCULAR HGB CONC 32.8 g/dL (32.0-36.0); MEAN CORPUSCULAR VOLUME 87 fl (80-97); MONOCYTES % (AUTO) 9.1 % (3-13); PLATELET COUNT 172 10^3/uL (150-450); RED BLOOD COUNT 3.69 10^6/uL (3.72-5.28); RED CELL DISTRIBUTION WIDTH 14.9 % (11.5-14.0); SEGMENTED NEUTROPHILS % (AUTO) 58.8 % (42-78); TOTAL CELLS COUNTED % (AUTO) 100 %; WHITE BLOOD COUNT 5.3 10^3/uL (4.0-10.5)
[2019-03-24 06:46] LABS: ANION GAP 9 (5-19); BLOOD UREA NITROGEN 44 mg/dL (7-20); CALCIUM 8.7 mg/dL (8.4-10.2); CARBON DIOXIDE 31 mmol/L (22-30); CHLORIDE 95 mmol/L (98-107); GLUCOSE 158 mg/dL (75-110); POTASSIUM 5.4 mmol/L (3.6-5.0)
[2019-03-24] MEDS: INSULIN LISPRO 100 UNIT/ML 3 ML VIAL SUBCUT SCH ×4 (08:13→22:14)
[2019-03-24] MEDS: OXYCODONE-ACETAMINOPHEN 5-325 MG TABLET PO PRN ×2 (08:18→22:14)
[2019-03-24] MEDS ORDERED: HYDROXYZINE PAMOATE 50 MG CAPSULE PO PRN (08:32)
[2019-03-24] MEDS ORDERED: ALBUTEROL SULFATE HFA (90 MCG/PUFF) 200 PUFF/8.5 GM MDI IH PRN (08:32)
[2019-03-24] MEDS ORDERED: OXYCODONE-ACETAMINOPHEN 5-325 MG TABLET PO PRN (08:32)
[2019-03-24] MEDS ORDERED: ONDANSETRON HCL 8 MG TABLET PO PRN (08:32)
[2019-03-24] MEDS: GABAPENTIN 300 MG CAPSULE PO SCH (09:44)
[2019-03-24] MEDS: DOCUSATE SODIUM 100 MG CAPSULE PO SCH ×2 (09:44→17:32)
[2019-03-24] MEDS: EZETIMIBE 10 MG TABLET PO SCH (09:45)
[2019-03-24] MEDS: FLUTICASONE/VILANTEROL 200-25 MCG/DOSE IH SCH (09:45)
[2019-03-24] MEDS: ISOSORBIDE MONONITRATE 30 MG TAB.ER.24H PO SCH (09:45)
[2019-03-24] MEDS: FENOFIBRATE NANOCRYSTALLIZED 145 MG TABLET PO SCH (09:45)
[2019-03-24] MEDS: AMLODIPINE BESYLATE 5 MG TABLET PO SCH (09:45)
[2019-03-24] MEDS: METOPROLOL SUCCINATE 25 MG TAB.SR.24H PO SCH (09:45)
[2019-03-24] MEDS: ASPIRIN 81 MG TABLET, CHEWABLE PO SCH (09:45)
[2019-03-24] MEDS: POLYETHYLENE GLYCOL 3350 POWDER 17 GM/1 PACKET PO SCH (09:45)
[2019-03-24] MEDS: FUROSEMIDE INJ/PF 20 MG/2 ML SDV IV SCH ×2 (09:45→22:13)
[2019-03-24] MEDS: CLOPIDOGREL BISULFATE 75 MG TABLET PO SCH (09:45)
[2019-03-24] MEDS: LIDOCAINE 5% (700 MG) TRANSDERMAL ADH..PATCH TP SCH (09:46)
[2019-03-24] MEDS: CYCLOSPORINE 0.05% OPH EMULSIO 0.4 ML DROPERETTE OU SCH ×2 (09:55→17:32)
[2019-03-24] MEDS ORDERED: (PENDING PHARMACY ID) (Levalbuterol Hcl [Levalbuterol Concentrate] 1.25 MG) NEB SCH (14:00)
[2019-03-24] MEDS: LEVALBUTEROL HCL NEB 1.25 MG/3 ML AMPUL NEB SCH ×2 (14:19→20:43)
--- NOTE | 2019-03-24 14:33 | PDOC PROGRESS REPORT ---
Subjective Progress Note for:: 03/24/19 Subjective:: 73 year old female past medical history of CKD stage IV nonoliguric, anemia of CKD, hyperkalemia, morbid obesity, retention, CAD status post CABG in 2001 followed by 1 a stent placement in 2002, diabetes and hypertension who was admitted here at [facility] on 03/04/2019 for hyperkalemia, fatigue, acute on chronic renal failure, UTI and was transferred to [facility] on 03/09/2019. She presented with progressive weakness, dizziness, increased abdominal girth, persistent left lower quadrant abdominal pain, decreased urine output, nausea and anorexia. In the ER, she was found to have a sodium of 126.7, potassium 5.9, creatinine of 4.63 from 1.97 on 03/10/2019. She was also found to be hypotensive at 84/48 which improved to 110/51 after receiving 2 L of IV fluids. 03/19: This morning, she says she still feels weak but feels a little better today. Denies chest pain or SOB. She is making urine and had 575 cc of urine overnight. She says she was having poor oral intake at the [facility]. She complains of left lower quadrant pain. 03/20: She says she continues to feel better today and that the weakness has improved. Creatinine still elevated albeit slightly improved. She is having adequate urine output. Discussed with nephrology who has recommended diuresing the patient in the next 48 hrs. 03/21: Patient complained of midsternal chest pain last night. EKG, troponin and CKMB were all normal. Appears she has been having this chest pain which she celia cribe as pressure like for year. This morning, she says she continues feels better. Creatinine has improved down to 2.98 from 3.16 on diuresis. 03/22: Denies SOB. Creatinine continues to gradually improve and is down to 2.6 from 2.98. She is having adequate urine output. 03/23: No acute event overnight. Creatinine continues gradually improve while on diuretics. Discussed with Dr. Serra. There is concern she may have been retaining prior to admission. Plan will be to remove her Rivera this afternoon and see if she is able to continue making adequate urine output. If she develops retention, plan will be to discharge her tomorrow on Rivera with close ff-up and referral to urology. Reduce IV Lasix today from 20 mg q8h to q12h. 03/24/2019-no acute events over the last 24 hours. Patient is afebrile. Comfortably in the bed communicating well. Nephrology on board. Potassium level is 5.4 creatinine was 2.08. Currently on IV Lasix 20 mg every 12 hours. Urinary output is 3 L. Reason For Visit: HYPERKALEMIAHYPONATREMIA,ROSA Physical Exam Vital Signs: Temp Pulse Resp BP Pulse Ox 98.3 F 64 19 111/41 L 99 03/24/19 11:14 03/24/19 14:00 03/24/19 11:14 03/24/19 11:14 03/24/19 11:14 Intake & Output 03/23/19 03/24/19 03/25/19 06:59 06:59 06:59 Intake Total 1334 522 Output Total 3000 3998 Balance -1666 -3476 Weight 85.3 kg 82.8 kg General appearance: PRESENT: no acute distress Head exam: PRESENT: atraumatic Eye exam: PRESENT: PERRLA Mouth exam: PRESENT: moist, tongue midline Neck exam: ABSENT: carotid bruit, JVD, lymphadenopathy, thyromegaly Respiratory exam: PRESENT: clear to auscultation cheli. ABSENT: rales, rhonchi, wheezes Cardiovascular exam: PRESENT: systolic murmur GI/Abdominal exam: PRESENT: normal bowel sounds, soft. ABSENT: distended, guarding, mass, organolmegaly, rebound, tenderness Rectal exam: PRESENT: deferred Extremities exam: PRESENT: full ROM. ABSENT: calf tenderness, clubbing, pedal edema Neurological exam: PRESENT: alert, awake, oriented to person, oriented to place, oriented to time, oriented to situation, CN II-XII grossly intact. ABSENT: m otor sensory deficit Psychiatric exam: PRESENT: appropriate affect, normal mood. ABSENT: homicidal ideation, suicidal ideation Results Laboratory Results: 03/24/19 05:41 03/24/19 05:41 03/24/19 03/24/19 05:41 05:41 WBC 5.3 RBC 3.69 L Hgb 10.6 L Hct 32.2 L MCV 87 MCH 28.6 MCHC 32.8 RDW 14.9 H Plt Count 172 Seg Neutrophils % 58.8 Lymphocytes % 25.6 Monocytes % 9.1 Eosinophils % 5.8 Basophils % 0.7 Absolute Neutrophils 3.1 Absolute Lymphocytes 1.3 Absolute Monocytes 0.5 Absolute Eosinophils 0.3 Absolute Basophils 0.0 Sodium 135.0 L Potassium 5.4 H Chloride 95 L Carbon Dioxide 31 H Anion Gap 9 BUN 44 H Creatinine 2.08 H Est GFR ( Amer) 28 L Est GFR (Non-Af Amer) 23 L Glucose 158 H Calcium 8.7 03/18/19 11:15 Blood Blood Culture - Final NO GROWTH IN 5 DAYS 03/18/19 10:10 Blood Blood Culture - Final NO GROWTH IN 5 DAYS 03/19/19 03/20/19 10:12 20:25 Creatine Kinase 65 CK-MB (CK-2) 2.05 Troponin I < 0.012 Impressions: Renal Ultrasound 03/19/19 00:00 IMPRESSION: No acute finding. Evaluation of the left kidney and bladder quite limited. Chest X-Ray 03/19/19 10:42 IMPRESSION: NO ACUTE RADIOGRAPHIC FINDING IN THE CHEST. Abdomen/Pelvis CT 03/19/19 16:38 IMPRESSION: Small residual left pleural effusion and basilar subsegmental atelectasis. Similar scattered small amounts of free fluid.New Rivera catheter in the bladder. Assessment and Plan - Diagnosis (1) Acute on chronic renal failure Is this a current diagnosis for this admission?: Yes Plan: She was initially deemed volume depleted from poororla intake and was started on IV fluids which did improve her creatinine. 03/20: Creatinine still elevated albeit slightly improved. She is having adequate urine output. Discussed with nephrology who deems patient is more on the hypervolemic side at this time and has recommended stopping Iv fluids and diuresing the patient in the next 48 hrs. 03/21: Creatinine has improved down to 2.98 from 3.16 on diuresis. 03/22: Creatinine continues to gradually improve and is down to 2.6 from 2.98. She is having adequate urine output. 03/23: Creatinine continues gradually improve while on diuretics. Discussed with Dr. Serra. There is concern she may have been retaining prior to admission. Plan will be to remove her Rivera this afternoon and see if she is able to continue making adequate urine output. If she develops retention, plan will be to discharge her tomorrow on Rivera with close ff-up and referral to urology. Reduce IV Lasix today from 20 mg q8h to q12h. 03/24/2019-patient's creatinine was 2.08 today. Improved. Presently on Lasix 40 mg p.o. twice a day. Nephrology on board. Plan is to check the urinary output. If she needed she may go home tomorrow with Rivera's catheter. (2) Hyperkalemia Is this a current diagnosis for this admission?: Yes Plan: Resolved. She was given hyperkalemia cocktail in the ER. 03/24/2019-serum potassium level is 5.4 this morning she was started back on Veltassa today. (3) Hyponatremia Is this a current diagnosis for this admission?: Yes Plan: Sodium improved to 132. 5/12: Now almost resolved. 03/24/2019-patient came in with hyponatremia serum sodium is 135 today hyponatremia is resolved. - Time Time Spent with patient: 25-34 minutes Medications reviewed and adjusted accordingly: Yes Anticipated discharge: Home
[2019-03-24] MEDS ORDERED: PATIROMER 8.4 GM SUSP PACKET PO SCH (17:00)
--- NOTE | 2019-03-24 17:13 | PDOC PROGRESS REPORT ---
Subjective Progress Note for:: 03/24/19 Subjective:: Patient is doing well. Her Rivera catheter was removed last night. She continues to be on Lasix this time was decreased to every 12 hours. She only passed urine one time today so far with 400 mL which is quite a decline from her usual trend for the last few days on IV Lasix. We will continue to monitor her urine output but if it is not near her usual urine output of 3 to 4 L for the last 4 days then she must be retaining some urine. We will see how she does for the whole 24 hours and then need to decide regarding a Rivera catheter. Otherwise she is doing well without any problems. Reason For Visit: HYPERKALEMIAHYPONATREMIA,ROSA Physical Exam Vital Signs: Temp Pulse Resp BP Pulse Ox 98.7 F 81 20 107/45 L 96 03/24/19 15:20 03/24/19 15:20 03/24/19 15:20 03/24/19 15:20 03/24/19 15:20 Intake & Output 03/23/19 03/24/19 03/25/19 06:59 06:59 06:59 Intake Total 1334 522 236 Output Total 3000 3998 400 Balance -4666 -3476 -164 Weight 85.3 kg 82.8 kg Exam: General appearance: PRESENT: no acute distress, cooperative, well-developed, well-nourished Head exam: PRESENT: atraumatic, normocephalic Eye exam: PRESENT: conjunctiva slightly pale, PERRLA. ABSENT: scleral icterus Neck exam: ABSENT: JVD Respiratory exam: PRESENT: Diminished breath sounds. ABSENT: crackles, rales, rhonchi, unlabored, wheezes Cardiovascular exam: PRESENT: Regular rate rhythm -+S1, +S2. ABSENT: diastolic murmur, systolic murmur GI/Abdominal exam: PRESENT: normal bowel sounds, soft. ABSENT: guarding, mass, tenderness Extremities exam: ABSENT: No edema Neurological exam: PRESENT: alert, awake, oriented to person, place and time. Skin exam: PRESENT: dry, warm, Cardiovascular exam: PRESENT: +S1, +S2, systolic murmur GI/Abdominal exam: PRESENT: normal bowel sounds, soft, tenderness - Left lower quadrant. Not firm. Bowel sounds are appreciated.. ABSENT: organomegaly Results Laboratory Results: 03/24/19 05:41 03/24/19 05:41 03/24/19 03/24/19 05:41 05:41 WBC 5.3 RBC 3.69 L Hgb 10.6 L Hct 32.2 L MCV 87 MCH 28.6 MCHC 32.8 RDW 14.9 H Plt Count 172 Seg Neutrophils % 58.8 Lymphocytes % 25.6 Monocytes % 9.1 Eosinophils % 5.8 Basophils % 0.7 Absolute Neutrophils 3.1 Absolute Lymphocytes 1.3 Absolute Monocytes 0.5 Absolute Eosinophils 0.3 Absolute Basophils 0.0 Sodium 135.0 L Potassium 5.4 H Chloride 95 L Carbon Dioxide 31 H Anion Gap 9 BUN 44 H Creatinine 2.08 H Est GFR ( Amer) 28 L Est GFR (Non-Af Amer) 23 L Glucose 158 H Calcium 8.7 03/19/19 03/20/19 10:12 20:25 Creatine Kinase 65 CK-MB (CK-2) 2.05 Troponin I < 0.012 Impressions: Renal Ultrasound 03/19/19 00:00 IMPRESSION: No acute finding. Evaluation of the left kidney and bladder quite limited. Chest X-Ray 03/19/19 10:42 IMPRESSION: NO ACUTE RADIOGRAPHIC FINDING IN THE CHEST. Abdomen/Pelvis CT 03/19/19 16:38 IMPRESSION: Small residual left pleural effusion and basilar subsegmental at electasis. Similar scattered small amounts of free fluid.New Rivera catheter in the bladder. Assessment & Plan - Diagnosis (1) Acute on chronic renal failure Qualifiers: Is this a current diagnosis for this admission?: Yes Plan: Currently with excellent urine output on current diuretics. Her lower extremity edema is much better and improved compared to previous 2 hospitalizations. Kidney function continues to improve every day. My concern in this patient is if she was having urinary retention especially that she has had history of bladder surgery not sure if she has had bladder prolapse about 3 years ago per history per patient. I talked to Dr. Harvey yesterday and recommended to make sure that we at least observe the patient for 24 hours without Rivera catheter to see if she is going to pass urine spontaneously. Explained to the patient and her at bedside that if she is really retaining urine then she might need to go home with the indwelling Rivera catheter pending urology follow-up appointment as an outpatient. Advised the to reschedule the patient's appointment with [facility] urology sooner than later. Continue current diuretics and may be able to switch to oral either today or tomorrow. Continue to monitor kidney function, electrolytes and urine output. (2) Anemia in chronic kidney disease (CKD) Is this a current diagnosis for this admission?: Yes Plan: Continue current Procrit dose weekly. Patient had good iron stores from previous work-up. (3) Hyponatremia Is this a current diagnosis for this admission?: Yes Plan: Slowly improving. (4) CHF (congestive heart failure) Qualifiers: Heart failure type: unspecified Heart failure chronicity: acute on chronic Qualified Code(s): I50.9 - Heart failure, unspecified Is this a current diagnosis for this admission?: Yes Plan: Clinically improving with diuresis. (5) CKD (chronic kidney disease), stage IV Is this a current diagnosis for this admission?: Yes (6) Constipation Is this a current diagnosis for this admission?: Yes (7) Diabetes mellitus type 2 in obese Is this a current diagnosis for this admission?: Yes (8) Hypertension Is this a current diagnosis for this admission?: Yes - Notes Notes: If the patient is discharged tomorrow she will need her Procrit to be given roselia or to discharge as ordered. She will then need to go to our office in a week to get her Procrit shot. Follow-up with me in 2 to 3 weeks with repeat labs including CBC, and a BMP. And remind patient to follow-up with [facility]. - Time Time with patient: 15-25 minutes
[2019-03-24] MEDS ORDERED: DIPHENHYDRAMINE HCL 25 MG CAPSULE PO SCH (18:00)
[2019-03-24] MEDS ORDERED: (PENDING PHARMACY ID) (Rosuvastatin Calcium [Crestor] 40 MG) PO SCH (18:00)
[2019-03-24] MEDS ORDERED: MONTELUKAST SODIUM 10 MG TABLET PO SCH (18:00)
[2019-03-24] MEDS ORDERED: ATORVASTATIN CALCIUM 80 MG TABLET PO SCH (22:00)
[2019-03-24] MEDS: PHARMACY COMMUNICATION ORDER MC SCH (22:15)
[2019-03-24] MEDS: FAMOTIDINE 20 MG TABLET PO SCH (22:15)
[2019-03-24] MEDS: INSULIN GLARGINE,HUM.REC.ANLOG 1,000 UNIT/10 ML VIAL SUBCUT SCH (22:15)
[2019-03-25] MEDS: LEVALBUTEROL HCL NEB 1.25 MG/3 ML AMPUL NEB SCH ×3 (02:17→14:12)
[2019-03-25] MEDS: HEPARIN SOD (PORCINE) 5,000 UNIT/ML 1 ML SYRINGE SUBCUT SCH (05:32)
[2019-03-25] MEDS ORDERED: EPOETIN ALFA INJ 40000 UNIT/1 ML (RENAL) SUBCUT SCH (08:00)
[2019-03-25] MEDS: INSULIN LISPRO 100 UNIT/ML 3 ML VIAL SUBCUT SCH ×2 (08:26→11:39)
[2019-03-25 08:38] LABS: ABSOLUTE BASOPHILS # (AUTO) 0.1 10^3/uL (0.0-0.2); ABSOLUTE EOSINOPHILS # (AUTO) 0.3 10^3/uL (0.0-0.6); ABSOLUTE LYMPHOCYTES (AUTO) 1.4 10^3/uL (0.5-4.7); ABSOLUTE MONOCYTES (AUTO) 0.5 10^3/uL (0.1-1.4); ABSOLUTE NEUT (AUTO) 3.3 10^3/uL (1.7-8.2); EOSINOPHILS % (AUTO) 4.9 % (0-6); HEMATOCRIT 31.9 % (36.0-47.0); HEMOGLOBIN 10.5 g/dL (12.0-15.5); LYMPHOCYTES % (AUTO) 25.6 % (13-45); MEAN CORPUSCULAR HEMOGLOBIN 28.8 pg (27.0-33.4); MEAN CORPUSCULAR HGB CONC 32.8 g/dL (32.0-36.0); MEAN CORPUSCULAR VOLUME 88 fl (80-97); MONOCYTES % (AUTO) 8.4 % (3-13); PLATELET COUNT 175 10^3/uL (150-450); RED BLOOD COUNT 3.63 10^6/uL (3.72-5.28); RED CELL DISTRIBUTION WIDTH 15.3 % (11.5-14.0); SEGMENTED NEUTROPHILS % (AUTO) 60.1 % (42-78); TOTAL CELLS COUNTED % (AUTO) 100 %; WHITE BLOOD COUNT 5.5 10^3/uL (4.0-10.5)
[2019-03-25 08:58] LABS: ALANINE AMINOTRANSFERASE 22 U/L (9-52); ALBUMIN 3.4 g/dL (3.5-5.0); ALKALINE PHOSPHATASE 73 U/L (38-126); ANION GAP 13 (5-19); ASPARTATE AMINO TRANSFERASE 21 U/L (14-36); BILIRUBIN,DIRECT 0.4 mg/dL (0.0-0.4); BILIRUBIN,TOTAL 0.6 mg/dL (0.2-1.3); BLOOD UREA NITROGEN 44 mg/dL (7-20); CARBON DIOXIDE 31 mmol/L (22-30); CHLORIDE 93 mmol/L (98-107); GLUCOSE 132 mg/dL (75-110); POTASSIUM 4.7 mmol/L (3.6-5.0); SODIUM 136.5 mmol/L (137-145); TOTAL PROTEIN 6.1 g/dL (6.3-8.2)
[2019-03-25] MEDS: FUROSEMIDE INJ/PF 20 MG/2 ML SDV IV SCH (09:58)
[2019-03-25] MEDS: ASPIRIN 81 MG TABLET, CHEWABLE PO SCH (09:59)
[2019-03-25] MEDS: CLOPIDOGREL BISULFATE 75 MG TABLET PO SCH (09:59)
[2019-03-25] MEDS: ISOSORBIDE MONONITRATE 30 MG TAB.ER.24H PO SCH (09:59)
[2019-03-25] MEDS: FENOFIBRATE NANOCRYSTALLIZED 145 MG TABLET PO SCH (09:59)
[2019-03-25] MEDS: METOPROLOL SUCCINATE 25 MG TAB.SR.24H PO SCH (09:59)
[2019-03-25] MEDS: EZETIMIBE 10 MG TABLET PO SCH (09:59)
[2019-03-25] MEDS: AMLODIPINE BESYLATE 5 MG TABLET PO SCH (09:59)
[2019-03-25] MEDS: GABAPENTIN 300 MG CAPSULE PO SCH (09:59)
[2019-03-25] MEDS: DOCUSATE SODIUM 100 MG CAPSULE PO SCH (09:59)
[2019-03-25] MEDS: POLYETHYLENE GLYCOL 3350 POWDER 17 GM/1 PACKET PO SCH (10:00)
[2019-03-25] MEDS: FLUTICASONE/VILANTEROL 200-25 MCG/DOSE IH SCH (10:00)
[2019-03-25] MEDS: CYCLOSPORINE 0.05% OPH EMULSIO 0.4 ML DROPERETTE OU SCH (10:00)
[2019-03-25] MEDS: LIDOCAINE 5% (700 MG) TRANSDERMAL ADH..PATCH TP SCH (10:00)
[2019-03-25] MEDS: OXYCODONE-ACETAMINOPHEN 5-325 MG TABLET PO PRN (11:08)
--- NOTE | 2019-03-25 11:25 | PDOC DISCHARGE SUMMARY ---
General - Admit/Disc Date/PCP Admission Date/Primary Care Provider: 03/18/19 15:00 DANI PANDA, DO Discharge Date: 03/25/19 - Discharge Diagnosis (1) Acute on chronic renal failure Is this a current diagnosis for this admission?: Yes Summary: She was initially deemed volume depleted from poororla intake and was started on IV fluids which did improve her creatinine. 03/20: Creatinine still elevated albeit slightly improved. She is having adequate urine output. Discussed with nephrology who deems patient is more on the hypervolemic side at this time and has recommended stopping Iv fluids and diuresing the patient in the next 48 hrs. 03/21: Creatinine has improved down to 2.98 from 3.16 on diuresis. 03/22: Creatinine continues to gradually improve and is down to 2.6 from 2.98. She is having adequate urine output. 03/23: Creatinine continues gradually improve while on diuretics. Discussed with Dr. Serra. There is concern she may have been retaining prior to admission. Plan will be to remove her Rivera this afternoon and see if she is able to continue making adequate urine output. If she develops retention, plan will be to discharge her tomorrow on Rivera with close ff-up and referral to urology. Reduce IV Lasix today from 20 mg q8h to q12h. 03/24/2019-patient's creatinine was 2.08 today. Improved. Presently on Lasix 40 mg p.o. twice a day. Nephrology on board. Plan is to check the urinary output. If she needed she may go home tomorrow with Rivera's catheter. 03/25/2019-patient's creatinine today is 2.38. She has stage III kidney disease. Evaluated by the certified pharmacist assistant. Presently on Lasix 40 mg twice a day she is going home on Lasix 20 mg p.o. twice a day. Urinary output is more than 3 L yesterday. Patient prefers to go home today. Patient was advised to follow-up with Dr. Serra as an outpatient. (2) Hyperkalemia Is this a current diagnosis for this admission?: Yes Summary: Resolved. She was given hyperkalemia cocktail in the ER. 03/24/2019-serum potassium level is 5.4 this morning she was started back on Veltassa today. 03/25/2019-serum potassium level is 5.7 today she was restarted on Veltassa yesterday patient was advised to continue the medication at home. (3) Hyponatremia Is this a current diagnosis for this admission?: Yes Summary: 03/25/2019-level today is 136.7 hyponatremia is resolved. Hyponatremia most likely secondary to CKD. - Additional Information Resuscitation Status: Do Not Resuscitate Discharge Diet: Diabetic Discharge Activity: Activity As Tolerated Home Medications: Acetaminophen [Tylenol 325 mg Tablet] 650 mg PO Q6HP PRN 03/04/19 Albuterol Sulfate [Albuterol Sulfate Hfa] 2 puff IH Q8HP PRN 03/04/19 Aspirin [Aspirin 81 mg Chewable Tablet] 81 mg PO DAILY 03/04/19 Atorvastatin Calcium [Lipitor 40 mg Tablet] 40 mg PO QPM 03/04/19 Clopidogrel Bisulfate [Plavix 75 mg Tablet] 75 mg PO DAILY 03/04/19 Cyclosporine 0.05% Oph Emulsio [Restasis 0.05% Oph Emulsion Pf 0.4 ml] 1 drop OU BID 03/04/19 Diphenhydramine HCl [Benadryl 25 mg Capsule] 25 mg PO QPM 03/04/19 Epoetin Aung [Procrit Inj 40,000 Unit/1 ml Vial (Renal)] 2 ml SQ WE@0800 03/04/19 Ezetimibe [Zetia 10 mg Tablet] 10 mg PO DAILY 03/04/19 Fenofibrate Nanocrystallized [Triglide] 160 mg PO DAILY 03/04/19 Fluticasone/Salmeterol [Advair 250-50 Diskus 14 Dose/Diskus] 1 puff IH Q12 02/10 02/27 Furosemide [Lasix 20 mg Tablet] 20 mg PO BID 03/04/19 Gabapentin [Neurontin] 600 mg PO Q12 03/04/19 Hydroxyzine Pamoate [Vistaril 50 mg Capsule] 50 mg PO Q8HP PRN 03/04/19 Insulin Lispro [Humalog Insulin (Lispro) 100 unit/mL] 0 unit SQ .SLIDING SCALE 03/04/19 Levalbuterol HCl [Levalbuterol Concentrate] 1.25 mg NEB RTQ6 03/04/19 Linaclotide [Linzess] 72 mcg PO DAILY 03/04/19 Losartan Potassium [Cozaar 25 mg Tablet] 25 mg PO DAILY 03/04/19 Montelukast Sodium [Singulair 10 mg Tablet] 10 mg PO QPM 03/04/19 Nitroglycerin [Nitrostat 0.4 mg (1/150 Gr) Tabs 25/Bottle] 0.4 mg PO Q5MP PRN 03/04/19 Omeprazole 40 mg PO BID 03/04/19 Ondansetron HCl [Zofran 8 mg Tablet] 8 mg PO Q4HP PRN 03/04/19 Oxycodone HCl/Acetaminophen [Percocet 5-325 mg Tablet] 1 tab PO Q6HP PRN 03/04/19 Rosuvastatin Calcium [Crestor] 40 mg PO QPM 03/04/19 Amlodipine Besylate [Norvasc 5 mg Tablet] 5 mg PO DAILY #30 tablet 03/12/19 Insulin Glargine,Hum.rec.anlog [Lantus Insulin 100 Unit/1 ml 10 ml] 18 unit BALDERRAMA BCUT QHS #1 bottle 03/12/19 Isosorbide Mononitrate [Imdur 30 mg Tablet.er] 30 mg PO DAILY #30 tab.er.24h 03/12/19 Metoprolol Succinate [Toprol Xl 25 mg Tab.sr] 50 mg PO DAILY #60 tab.sr.24h 03/12/19 Patiromer Calcium Sorbitex [Veltassa 8.4 gm Susp Packet] 8.4 gm PO DAILY@1700 #30 packet 03/12/19 History of Present Illness History of Present Illness: PRECIOUS BURCH is a 73 year old female 73 year old female past medical history of CKD stage IV nonoliguric not HD, anemia of CKD, hyperkalemia, morbid obesity, retention, CAD status post CABG in 2001 followed by 1 a stent placement in 2002, diabetes and hypertension who was admitted here at [facility] on 03/04/2019 for hyperkalemia, fatigue, acute on chronic renal failure, UTI and was [facility]09[facility]. During last hospitalization patient wanted to be to be [facility] but patient telling me today that she was not accepted because of the fact that she needed Procrit administration and they could not afford it and was sent home instead. Patient tells me that she is agreeable to be transferred to [facility] if needed. Patient states that she has been compliant with her medication has not been able to follow-up with her PCP, GI and neurologist due to being sick. Patient was doing fine post hospitalization however she has been having progressive weakness, dizziness, increased abdominal girth, persistent left lower quadrant abdominal pain, nausea and anorexia. She had been having normal bowel movement however she has noticed that her urine output has decreased significantly. Denies any shortness of breath, chest pain, vomiting, diarrhea, constipation. In ED CXR was stable, but she was found to have a sodium of 126.7, potassium 5.9, bicarb 24, creatinine 4.63 up from 1.97 on 03/10/2019. Baseline creatinine 1.8. WBC 6.1, Hgb 9.9 and platelets 188. EKG sinus rhythm negative for peaked T waves. SBP 84/48 recovered to 110/51 after receiving 2 L of IV fluids. In ED she was started on hyperkalemia protocol and IV resuscitation and hospitalist consulted for admission. Physical Exam Vital Signs: Temp Pulse Resp BP Pulse Ox 98.8 F 76 16 146/66 H 97 03/25/19 08:00 03/25/19 09:05 03/25/19 09:05 03/25/19 08:00 03/25/19 09:05 Intake & Output 03/24/19 03/25/19 03/26/19 06:59 06:59 06:59 Intake Total 522 668 Output Total 3998 1400 Balance -3476 -732 Weight 82.8 kg 82.4 kg General appearance: PRESENT: no acute distress Head exam: PRESENT: atraumatic Eye exam: PRESENT: PERRLA Mouth exam: PRESENT: moist, tongue midline Neck exam: ABSENT: carotid bruit, JVD, lymphadenopathy, thyromegaly Respiratory exam: PRESENT: decreased breath sounds Cardiovascular exam: PRESENT: RRR. ABSENT: diastolic murmur, rubs, systolic murmur GI/Abdominal exam: PRESENT: normal bowel sounds, soft. ABSENT: distended, guarding, mass, organolmegaly, rebound, tenderness Rectal exam: PRESENT: deferred Extremities exam: PRESENT: full ROM. ABSENT: calf tenderness, clubbing, pedal edema Neurological exam: PRESENT: alert, awake, oriented to person, oriented to place, oriented to time, oriented to situation, CN II-XII grossly intact. ABSENT: motor sensory deficit Psychiatric exam: PRESENT: appropriate affect, normal mood. ABSENT: homicidal ideation, suicidal ideation Results Laboratory Results: 03/25/19 08:18 03/25/19 08:18 03/25/19 03/25/19 08:18 08:18 WBC 5.5 RBC 3.63 L Hgb 10.5 L Hct 31.9 L MCV 88 MCH 28.8 MCHC 32.8 RDW 15.3 H Plt Count 175 Seg Neutrophils % 60.1 Lymphocytes % 25.6 Monocytes % 8.4 Eosinophils % 4.9 Basophils % 1.0 Absolute Neutrophils 3.3 Absolute Lymphocytes 1.4 Absolute Monocytes 0.5 Absolute Eosinophils 0.3 Absolute Basophils 0.1 Sodium 136.5 L Potassium 4.7 Chloride 93 L Carbon Dioxide 31 H Anion Gap 13 BUN 44 H Creatinine 2.31 H Est GFR ( Amer) 25 L Est GFR (Non-Af Amer) 21 L Glucose 132 H Calcium 9.0 Magnesium 1.9 Total Bilirubin 0.6 AST 21 ALT 22 Alkaline Phosphatase 73 Total Protein 6.1 L Albumin 3.4 L 03/19/19 03/20/19 10:12 20:25 Creatine Kinase 65 CK-MB (CK-2) 2.05 Troponin I < 0.012 Impressions: Renal Ultrasound 03/19/19 00:00 IMPRESSION: No acute finding. Evaluation of the left kidney and bladder quite limited. Chest X-Ray 03/19/19 10:42 IMPRESSION: NO ACUTE RADIOGRAPHIC FINDING IN THE CHEST. Abdomen/Pelvis CT 03/19/19 16:38 IMPRESSION: Small residual left pleural effusion and basilar subsegmental atelectasis. Similar scattered small amounts of free fluid.New Rivera catheter in the bladder. Qualifiers - * PATIENT BEING DISCHARGED WITH ANY OF THE FOLLOWING DIAGNOSIS: No VTE patient discharged on overlapping Therapy?: No Acute Heart Failure Is this a Heart Failure Patient?: No Plan Discharge Plan: Patient is going home today. Time Spent: Greater than 30 Minutes
[2019-03-25 14:46] VITALS: BP 95/50
== END 2019-03-25 15:12 | disposition home health service (06) | DRG 683 ==
LOC: ER 09:46 → EH 15:00 → 3S 16:36
PROVIDERS: ADMIT Internal Medicine; ATTEND Internal Medicine
PROC: 3E0F73Z Introduction of Anti-inflammatory into Respiratory Tract, Via Natural or Artificial Opening (ICD-10-PCS; principal; 2019-03-18)
DX: N17.9 Acute kidney failure, unspecified (principal); Z68.43 Body mass index [BMI] 50.0-59.9, adult; I50.32 Chronic diastolic (congestive) heart failure; I13.0 Hypertensive heart and chronic kidney disease with heart failure and stage 1 through stage 4 chronic kidney disease, or unspecified chronic kidney disease; E87.1 Hypo-osmolality and hyponatremia; E87.5 Hyperkalemia; N18.4 Chronic kidney disease, stage 4 (severe); E11.22 Type 2 diabetes mellitus with diabetic chronic kidney disease; D63.1 Anemia in chronic kidney disease; E66.01 Morbid (severe) obesity due to excess calories; I25.10 Atherosclerotic heart disease of native coronary artery without angina pectoris; E78.5 Hyperlipidemia, unspecified; J44.9 Chronic obstructive pulmonary disease, unspecified; G47.30 Sleep apnea, unspecified; F32.9 Major depressive disorder, single episode, unspecified; Z66 Do not resuscitate; R53.82 Chronic fatigue, unspecified; I95.9 Hypotension, unspecified; K59.00 Constipation, unspecified; I25.2 Old myocardial infarction; Z79.899 Other long term (current) drug therapy; Z79.02 Long term (current) use of antithrombotics/antiplatelets; Z79.1 Long term (current) use of non-steroidal anti-inflammatories (NSAID); Z79.4 Long term (current) use of insulin; Z79.891 Long term (current) use of opiate analgesic; Z95.1 Presence of aortocoronary bypass graft; Z95.5 Presence of coronary angioplasty implant and graft; Z90.49 Acquired absence of other specified parts of digestive tract; Z98.84 Bariatric surgery status; Z90.710 Acquired absence of both cervix and uterus; Z88.6 Allergy status to analgesic agent; Z88.1 Allergy status to other antibiotic agents; Z88.0 Allergy status to penicillin; Z88.8 Allergy status to other drugs, medicaments and biological substances; Z82.49 Family history of ischemic heart disease and other diseases of the circulatory system; Z83.6 Family history of other diseases of the respiratory system; Z83.3 Family history of diabetes mellitus; Z84.1 Family history of disorders of kidney and ureter; Z80.9 Family history of malignant neoplasm, unspecified; Z86.73 Personal history of transient ischemic attack (TIA), and cerebral infarction without residual deficits
CPT/HCPCS: 36415; 51702; 71045; 74176; 76775; 80048; 80053; 81001; 82533; 82550; 82553; 82962; 83605; 83735; 83930; 84484; 85025; 85610; 87040; 87086; 93005; 93010; 94640; 96361; 96374; 96375; 99291; J0610; J1644; J1815; J1940; J2550; J3490; J7030; J7620; Q4081; S0119

== ENCOUNTER → 2019-03-31 | Outpatient (CLI) | payer MEDICARE, MEDICAID ==
--- NOTE | 2019-03-31 12:28 | RADIOLOGY REPORT (SQ) ---
EXAM DESCRIPTION: WRIST LEFT 3 VIEWS COMPLETED DATE/TIME: 03/31/2019 12:07 pm REASON FOR STUDY: RT SHOULDER PAIN;MASS OF LEFT WRIST M25.511 PAIN IN RIGHT SHOULDER R22.32 LOCALI ZED SWELLING, MASS AND LUMP, LEFT UPPER LIMB COMPARISON: None. NUMBER OF VIEWS: Three views. TECHNIQUE: AP, lateral, and oblique radiographic images acquired of the left wrist. LIMITATIONS: None. FINDINGS: MINERALIZATION: Normal. BONES: No acute fracture or dislocation. Mild degenerative changes at the first metacarpal phalangea l joint. Normal alignment. SOFT TISSUES: The patient has a known mass along the radial aspect of the wrist. Soft tissue vascul ar calcifications. No foreign body. OTHER: No other significant finding. IMPRESSION: 1. No acute osseous findings. 2. The patient has a known mass along the radial aspect of the wrist. Correlation suggested. TECHNICAL DOCUMENTATION: JOB ID: [id number] [employer]- All Rights Reserved Reading location - IP/workstation name: [email or web address]
--- NOTE | 2019-03-31 12:49 | RADIOLOGY REPORT (SQ) ---
EXAM DESCRIPTION: SHOULDER RIGHT 2 OR MORE VIEWS COMPLETED DATE/TIME: 03/31/2019 12:07 pm REASON FOR STUDY: RT SHOULDER PAIN;MASS OF LEFT WRIST M25.511 PAIN IN RIGHT SHOULDER R22.32 LOCALI ZED SWELLING, MASS AND LUMP, LEFT UPPER LIMB COMPARISON: 02/24/2019 NUMBER OF VIEWS: Three views. TECHNIQUE: Internal rotation, external rotation, and Y view images acquired of the right shoulder. LIMITATIONS: None. FINDINGS: MINERALIZATION: Normal. BONES: No acute fracture or dislocation. JOINTS: Decrease in the subacromion space maybe related to underlying rotator cuff pathology. Mild acromioclavicular arthrosis. VISUALIZED LUNGS AND RIBS: No pneumothorax. No rib fracture. SOFT TISSUES: Focal area of calcific tendinitis in the region of the rotator cuff tendon. OTHER: Partially visualized prior anterior median sternotomy. IMPRESSION: 1. No significant interval changes since the prior examination dated 02/24/2019. No acu te osseous findings. 2. As on the prior examination, decrease in the subacromial space may be related to underlying rotat or cuff pathology. 3. Focal calcific tendinitis in the region of the rotator cuff tendon. TECHNICAL DOCUMENTATION: JOB ID: [id number] [employer]- All Rights Reserved Reading location - IP/workstation name: [email or web address]
== END ==
LOC: OD 11:29
PROVIDERS: ATTEND Family Medicine
DX: M25.511 Pain in right shoulder (principal); R22.32 Localized swelling, mass and lump, left upper limb; M75.31 Calcific tendinitis of right shoulder

== ENCOUNTER 2019-04-06 15:07 | Observation (INO) | payer MEDICARE, MEDICAID ==
[2019-04-06] MEDS ORDERED: NORMAL SALINE 1000 ML 1,000 ML IV ONE (15:12)
--- NOTE | 2019-04-06 15:34 | ER Document Report ---
ED General - General Stated Complaint: LOW BLOOD PRESSURE Time Seen by Provider: 04/06/19 15:11 Primary Care Provider: DANI IWLSON DO [Primary Care Provider] - Follow up as needed Information source: Patient Notes: 73-year-old female with extensive past medical history as recorded including stage IV kidney disease, diabetes, high blood pressure, coronary artery disease, who presents today after the home health nurse stated the blood pressure was read as 77/55. Patient herself denies any symptomatology such as chest pain, shortness of breath, abdominal pain, decreased urination, pelvic pain, or back pain. EMS provided 300 cc of fluid with to repeat blood pressures greater than 100 systolic. Patient has not been tachycardic. Patient has not had any fevers. No vomiting or diarrhea. Patient was admitted here initially March 04 for an increased potassium and acute on chronic renal failure. She then presented around mid March with a creatinine of 4.6, a low sodium, and increased potassium. Patient was initially given fluid and then diuresed. Creatinine 2.38 upon discharge. Patient has been following with nephrology. Patient's Lasix was changed to 20 twice daily. Patient 4 days ago started to have some dysuria and some vaginal itching. She had white blood cells in her urine according to the patient. The primary care physician Dr. Wilson sent a urine culture. She has been on Macrobid since that time. Patient herself denies any and all symptoms. She denies any headache, neck pain, chest pain, abdominal pain, leg swelling, fevers, vomiting, diarrhea, or dysuria. Patient did see Dr. Serra the erector operator this week for an injection but states that her levels were "good" so they did not give her the Procrit injection. TRAVEL OUTSIDE OF THE [place] IN LAST 30 DAYS: No - Related Data Allergies/Adverse Reactions: amoxicillin trihydrate [From Augmentin] Allergy (Severe, Verified 04/06/19 15:33) stomach cramps, n and v, rash butalbital [From Fiorinal] Allergy (Unknown, Verified 04/06/19 15:33) rash metformin HCl [From Glucophage] Allergy (Unknown, Verified 04/06/19 15:33) rash Potassium Clavulanate * [From Augmentin] Adverse Reaction (Unknown, Verified 04/06/19 15:33) nausea, vomit, epig pain Past Medical History - Social History Smoking Status: Unknown if Ever Smoked Family History: CAD, COPD, DM, Hypertension, Malignancy, Other - Kidney disease - Past Medical History Cardiac Medical History: Reports: Hx Congestive Heart Failure, Hx Coronary Artery Disease - BYPASS 2001, Hx Heart Attack, Hx Hypercholesterolemia, Hx Hypertension Denies: Hx Atrial Fibrillation, Hx DVT, Hx Pulmonary Embolism Pulmonary Medical History: Reports: Hx Asthma, Hx Bronchitis, Hx COPD, Hx Pneumonia, Hx Respiratory Failure, Hx Sleep Apnea - no cpap insurance does not cover Denies: Hx Tuberculosis Neurological Medical History: Reports: Hx Cerebrovascular Accident - X4. Denies: Hx Seizures Endocrine Medical History: Reports: Hx Diabetes Mellitus Type 2 - DX [place] 1994. Denies: Hx Diabetes Mellitus Type 1, Hx Hyperthyroidism, Hx Hypothyroidism Renal/ Medical History: Reports: Hx End Stage Renal Disease, Hx Kidney Stones. Denies: Hx Peritoneal Dialysis GI Medical History: Reports: Hx Ulcer. Denies: Hx Cirrhosis, Hx Gastroesophageal Reflux Disease, Hx Hepatitis, Hx Pancreatitis Musculoskeletal Medical History: Reports Hx Arthritis, Denies Hx Gout, Denies Hx Multiple Sclerosis, Denies Hx Systemic Lupus Erythematosus Skin Medical History: Denies Hx Eczema, Denies Hx Psoriasis Psychiatric Medical History: Reports: Hx Depression Denies: Hx Bipolar Disorder, Hx Schizophrenia Infectious Medical History: Denies: Hx Hepatitis Past Surgical History: Reports: Hx Cardiac Catheterization, Hx Section, Hx Cholecystectomy, Hx Coronary Stent, Hx Gastric Bypass Surgery - 2001, Hx Gynecologic Surgery, Hx Hysterectomy, Hx Open Heart Surgery - 2001 TRIPLE BYPASS, Hx Rectal Surgery, Hx Tubal Ligation - Immunizations Hx Diphtheria, Pertussis, Tetanus Vaccination: No Hx Pneumococcal Vaccination: 11/11/14 Review of Systems - Review of Systems Constitutional: denies: Fever EENT: denies: Eye discharge, Nose discharge Cardiovascular: denies: Chest pain, Palpitations Respiratory: denies: Short of breath Gastrointestinal: denies: Vomiting Genitourinary: denies: Dysuria Musculoskeletal: denies: Leg swelling Skin: Other - no hives. denies: Rash Neurological/Psychological: Other - no slurred speech -: Yes All other systems reviewed and negative Physical Exam - Vital signs Vitals: Temp Resp Pulse Ox 98.4 F 15 95 04/06/19 15:08 04/06/19 15:08 04/06/19 15:08 Notes: Reviewed vital signs and nursing note as charted by RN. CONSTITUTIONAL: Alert and oriented and responds appropriately to questions. Well-appearing; well-nourished HEAD: Normocephalic; atraumatic EYES: PERRL; Conjunctivae clear, sclerae non-icteric ENT: Normal nose; no rhinorrhea; moist mucous membranes; pharynx without lesions noted NECK: Supple without meningismus; non-tender; no cervical lymphadenopathy, no masses CARD: Regular rate and rhythm; no murmurs; symmetric distal pulses RESP: Normal chest excursion without splinting or tachypnea; breath sounds clear and equal bilaterally; no wheezes, no rhonchi, no rales ABD/GI: Normal bowel sounds; non-distended; soft, non-tender; no palpable organomegaly or masses BACK: The back appears normal and is non-tender to palpation EXT: Normal ROM in all joints; non-tender to palpation; no edema SKIN: No acute lesions noted NEURO: CN 2-12 intact; 5/5 bilateral upper and lower extremity strength with sensation intact to light touch PSYCH: The patient's mood and manner are appropriate. Grooming and personal hygiene are appropriate. Course - Re-evaluation Re-evalutation: Given the above history and physical examination, receiving only 250 cc of fluid by EMS with stable blood pressures here, not tachycardic, not febrile, with no complaints by the patient, we will obtain basic labs, repeat hemoglobin level, repeat creatinine, and reassess. 04/06/19 16:37 Patient's labs as recorded with a creatinine of 2.6. Hemoglobin as recorded. The erector operator Dr. Steinberg is covering for the erector operator Dr. Serra. I will call him with these results. Potassium as recorded. Patient has received 500 cc of fluid. Blood pressure stable. Patient is still taking the antibiotics that she was discharged with. 04/06/19 16:42 Patient is completing a course of Macrobid secondary to the Enterococcus faecalis that grew positive on a urine culture in late February. 04/06/19 17:29 Creatinine is much improved from when she first initially came on the prior admi ssion. Only slightly above her discharge creatinine level. 04/06/19 17:39 Urine analysis on a catheterized specimen as recorded. Urine culture has been sent. I will provide a gram of Rocephin and admit the patient to the hospitalist service. I have called and spoken directly to Dr. Steinberg the erector operator who was available for consultation. - Vital Signs Vital signs: Temp Pulse Resp BP Pulse Ox 98.4 F 13 133/58 H 100 04/06/19 15:08 04/06/19 17:02 04/06/19 17:02 04/06/19 17:02 - Laboratory Result Diagrams: 04/06/19 15:25 04/06/19 15:25 Laboratory results interpreted by me: 04/06/19 04/06/19 04/06/19 15:25 15:25 17:10 RBC 3.55 L Hgb 10.4 L Hct 31.9 L RDW 15.6 H Plt Count 133 L Eosinophils % 8.1 H Sodium 136.8 L BUN 44 H Creatinine 2.62 H Est GFR ( Amer) 22 L Est GFR (Non-Af Amer) 18 L Glucose 206 H Calcium 7.9 L Urine Protein 30 H Ur Leukocyte Esterase LARGE H Discharge - Discharge Clinical Impression: Low blood pressure reading UTI (urinary tract infection) Qualifiers: Urinary tract infection type: site unspecified Hematuria presence: without hematuria Qualified Code(s): N39.0 - Urinary tract infection, site not specified Condition: Fair Disposition: ADMITTED OBSERVATION Admitting Provider: Candice (Hospitalist) Unit Admitted: Telemetry Additional Instructions: Come back immediately with any lightheadedness, dizziness, chest pain, abdominal pain, fevers, vomiting, leg swelling, or any other acute problems. Please make sure that you follow-up with your primary care doctor and Dr. Serra the erector operator. Your creatinine is 2.6. It is up from 2.3 on previous visit. Your hemoglobin is 10.4 which is excellent. Referrals: DANI WILSON DO [Primary Care Provider] - Follow up as needed
[2019-04-06 15:44] LABS: ABSOLUTE EOSINOPHILS # (AUTO) 0.5 10^3/uL (0.0-0.6); ABSOLUTE LYMPHOCYTES (AUTO) 1.5 10^3/uL (0.5-4.7); ABSOLUTE MONOCYTES (AUTO) 0.4 10^3/uL (0.1-1.4); BASOPHILS % (AUTO) 0.3 % (0-2); EOSINOPHILS % (AUTO) 8.1 % (0-6); HEMATOCRIT 31.9 % (36.0-47.0); HEMOGLOBIN 10.4 g/dL (12.0-15.5); MEAN CORPUSCULAR HEMOGLOBIN 29.2 pg (27.0-33.4); MEAN CORPUSCULAR HGB CONC 32.6 g/dL (32.0-36.0); MEAN CORPUSCULAR VOLUME 90 fl (80-97); MONOCYTES % (AUTO) 5.6 % (3-13); PLATELET COUNT 133 10^3/uL (150-450); RED BLOOD COUNT 3.55 10^6/uL (3.72-5.28); RED CELL DISTRIBUTION WIDTH 15.6 % (11.5-14.0); TOTAL CELLS COUNTED % (AUTO) 100 %; WHITE BLOOD COUNT 6.4 10^3/uL (4.0-10.5)
[2019-04-06 16:10] LABS: ANION GAP 11 (5-19); BLOOD UREA NITROGEN 44 mg/dL (7-20); CALCIUM 7.9 mg/dL (8.4-10.2); CARBON DIOXIDE 22 mmol/L (22-30); CHLORIDE 104 mmol/L (98-107); GLUCOSE 206 mg/dL (75-110); POTASSIUM 4.9 mmol/L (3.6-5.0); SODIUM 136.8 mmol/L (137-145)
[2019-04-06 17:32] LABS: APPEARANCE,URINE CLOUDY; BILIRUBIN,URINE NEGATIVE (NEGATIVE); COLOR,URINE YELLOW; GLUCOSE, URINE NEGATIVE (NEGATIVE); KETONES,URINE NEGATIVE (NEGATIVE); LEUKOCYTE ESTERASE,URINE LARGE (NEGATIVE); NITRITE,URINE NEGATIVE (NEGATIVE); PROTEIN,URINE 30 mg/dL (NEGATIVE); URINE SPECIFIC GRAVITY 1.011; UROBILINOGEN,URINE NEGATIVE mg/dL (<2.0)
[2019-04-06] MEDS ORDERED: CEFTRIAXONE 1 GM/D5W RTU 1 GM/50 ML RTUPB IV ONE (17:42)
[2019-04-06] MEDS ORDERED: DEXTROSE 50%-WATER 25 GM/50 ML DISP.SYRIN IV PRN ×2 (18:12)
[2019-04-06] MEDS ORDERED: DEXTROSE 40% GEL 15 GM TUBE PO PRN ×2 (18:12)
[2019-04-06] MEDS ORDERED: GLUCAGON,HUMAN RECOMB 1 MG INJ IM PRN (18:12)
[2019-04-06] MEDS ORDERED: ALBUTEROL SULFATE HFA (90 MCG/PUFF) 200 PUFF/8.5 GM MDI IH PRN (18:13)
--- NOTE | 2019-04-06 18:29 | PDOC H&P ---
History of Present Illness Admission Date/PCP: 04/06/19 17:54 DANI WILSON DO Patient complains of: dysuria History of Present Illness: DT is a 73 year old female past medical history of chronic respiratory failure on 2 lpm at home, CKD stage IV nonoliguric, anemia of CKD, hyperkalemia, morbid obesity, retention, COPD, CAD status post CABG in 2001 followed by 1 a stent placement in 2002, diabetes and hypertension who was recently admitted and discharged on 03/28 after she was treated for fluid overload and hyperkalemia related to acute on chronic renal failure. She has been doing well until 4 days ago when she started having dysuria and subjective fever at home. She was seen by Dr. Wilson a few days ago and was started on antibiotics for UTI. A urine culture was also sent apparnetly. She was seen by a home health nurse earlier today and was noted to be hypotensive at 70/50 hence EMS was called. She was given 300 cc IV bolus by EM and received another 200 cc in the ER. Her BP improved to 99/50. Currently on encounter, BP is 130/80. Past Medical History Cardiac Medical History: Reports: Congestive Heart Failure, Coronary Artery Disease - BYPASS 2001, Myocardial Infarction, Hyperlipidema, Hypertension Denies: Atrial Fibrillation, DVT, Pulmonary Embolism Pulmonary Medical History: Reports: Asthma, Bronchitis, Chronic Obstructive Pulmonary Disease (COPD), Pneumonia, Respiratory Failure, Sleep Apnea - no cpap insurance does not cover Denies: Tuberculosis Neurological Medical History: Denies: Seizures Endocrine Medical History: Reports: Diabetes Mellitus Type 2 - DX [place] 1994 Denies: Diabetes Mellitus Type 1, Hyperthyroidism, Hypothyroidism Renal/ Medical History: Reports: End Stage Renal Disease GI Medical History: Denies: Cirrhosis, Gastroesophageal Reflux Disease, Hepatitis Musculoskeltal Medical History: Reports: Arthritis Denies: Gout Skin Medical History: Denies: Eczema, Psoriasis Psychiatric Medical History: Reports: Depression Denies: Bipolar Disorder Hematology: Reports: Anemia, Bleeding Tendencies Denies: Hemophilia, Sickle Cell Disease Past Surgical History Past Surgical History: Reports: Cardiac Catheterization, Section, Cholecystectomy, Coronary Stent, Gastric Bypass Surgery - 2001, Hysterectomy, Tubal Ligation Denies: Amputation Social History Smoking Status: Unknown if Ever Smoked Frequency of Alcohol Use: None Hx Recreational Drug Use: No Drugs: None Hx Prescription Drug Abuse: No Family History Family History: CAD, COPD, DM, Hypertension, Malignancy, Other - Kidney disease Parental Family History Reviewed: Yes - no premature CAD Children Family History Reviewed: No Sibling(s) Family History Reviewed.: No Medication/Allergy Home Medications: Acetaminophen [Tylenol 325 mg Tablet] 650 mg PO Q6HP PRN 03/04/19 Albuterol Sulfate [Albuterol Sulfate Hfa] 2 puff IH Q8HP PRN 03/04/19 Aspirin [Aspirin 81 mg Chewable Tablet] 81 mg PO DAILY 03/04/19 Atorvastatin Calcium [Lipitor 40 mg Tablet] 40 mg PO QPM 03/04/19 Clopidogrel Bisulfate [Plavix 75 mg Tablet] 75 mg PO DAILY 03/04/19 Cyclosporine 0.05% Oph Emulsio [Restasis 0.05% Oph Emulsion Pf 0.4 ml] 1 drop OU BID 03/04/19 Diphenhydramine HCl [Benadryl 25 mg Capsule] 25 mg PO QPM 03/04/19 Epoetin Aung [Procrit Inj 40,000 Unit/1 ml Vial (Renal)] 2 ml SQ WE@0800 03/04/19 Ezetimibe [Zetia 10 mg Tablet] 10 mg PO DAILY 03/04/19 Fenofibrate Nanocrystallized [Triglide] 160 mg PO DAILY 03/04/19 Fluticasone/Salmeterol [Advair 250-50 Diskus 14 Dose/Diskus] 1 puff IH Q12 03/04/19 Furosemide [Lasix 20 mg Tablet] 20 mg PO BID 03/04/19 Gabapentin [Neurontin] 600 mg PO Q12 03/04/19 Hydroxyzine Pamoate [Vistaril 50 mg Capsule] 50 mg PO Q8HP PRN 03/04/19 Insulin Lispro [Humalog Insulin (Lispro) 100 unit/mL] 0 unit SQ .SLIDING SCALE 03/04/19 Levalbuterol HCl [Levalbuterol Concentrate] 1.25 mg NEB RTQ6 03/04/19 Linaclotide [Linzess] 72 mcg PO DAILY 03/04/19 Losartan Potassium [Cozaar 25 mg Tablet] 25 mg PO DAILY 03/04/19 Montelukast Sodium [Singulair 10 mg Tablet] 10 mg PO QPM 03/04/19 Nitroglycerin [Nitrostat 0.4 mg (1/150 Gr) Tabs 25/Bottle] 0.4 mg PO Q5MP PRN 03/04/19 Omeprazole 40 mg PO BID 03/04/19 Ondansetron HCl [Zofran 8 mg Tablet] 8 mg PO Q4HP PRN 03/04/19 Oxycodone HCl/Acetaminophen [Percocet 5-325 mg Tablet] 1 tab PO Q6HP PRN 03/04/19 Rosuvastatin Calcium [Crestor] 40 mg PO QPM 03/04/19 Amlodipine Besylate [Norvasc 5 mg Tablet] 5 mg PO DAILY #30 tablet 03/12/19 Insulin Glargine,Hum.rec.anlog [Lantus Insulin 100 Unit/1 ml 10 ml] 18 unit SUBCUT QHS #1 bottle 03/12/19 Isosorbide Mononitrate [Imdur 30 mg Tablet.er] 30 mg PO DAILY #30 tab.er.24h 03/12/19 Metoprolol Succinate [Toprol Xl 25 mg Tab.sr] 50 mg PO DAILY #60 tab.sr.24h 03/12/19 Patiromer Calcium Sorbitex [Veltassa 8.4 gm Susp Packet] 8.4 gm PO DAILY@1700 #30 packet 03/12/19 Allergies/Adverse Reactions: amoxicillin trihydrate [From Augmentin] Allergy (Severe, Verified 04/06/19 15:33) stomach cramps, n and v, rash butalbital [From Fiorinal] Allergy (Unknown, Verified 04/06/19 15:33) rash metformin HCl [From Glucophage] Allergy (Unknown, Verified 04/06/19 15:33) rash Potassium Clavulanate * [From Augmentin] Adverse Reaction (Unknown, Verified 04/06/19 15:33) nausea, vomit, epig pain Review of Systems All systems: reviewed and no additional remarkable complaints except as stated - as mentioned in HPI Physical Exam Vital Signs: Temp Pulse Resp BP Pulse Ox 98.4 F 15 126/62 H 99 04/06/19 15:08 04/06/19 18:02 04/06/19 18:02 04/06/19 18:02 Intake & Output 04/05/19 04/06/19 04/07/19 06:59 06:59 06:59 Intake Total 500 Balance 500 Weight 181 lb 10.574 oz General appearance: PRESENT: no acute distress, well-developed, well-nourished Head exam: PRESENT: atraumatic, normocephalic Eye exam: PRESENT: conjunctiva pink, EOMI, PERRLA. ABSENT: scleral icterus Ear exam: PRESENT: normal external ear exam Mouth exam: PRESENT: moist, tongue midline Neck exam: ABSENT: carotid bruit, JVD, lymphadenopathy, thyromegaly Respiratory exam: PRESENT: rales - left base. ABSENT: rhonchi, wheezes Cardiovascular exam: PRESENT: RRR. ABSENT: diastolic murmur, rubs, systolic murmur Pulses: PRESENT: normal dorsalis pedis pul GI/Abdominal exam: PRESENT: normal bowel sounds, soft. ABSENT: distended, guarding, mass, organolmegaly, rebound, tenderness Rectal exam: PRESENT: deferred Extremities exam: PRESENT: +1 edema Neurological exam: PRESENT: alert, awake, oriented to person, oriented to place, oriented to time, oriented to situation, CN II-XII grossly intact. ABSENT: motor sensory deficit Results Laboratory Results: 04/06/19 15:25 04/06/19 15:25 04/06/19 04/06/19 04/06/19 15:25 15:25 17:10 WBC 6.4 RBC 3.55 L Hgb 10.4 L Hct 31.9 L MCV 90 MCH 29.2 MCHC 32.6 RDW 15.6 H Plt Count 133 L Seg Neutrophils % 62.0 Lymphocytes % 24.0 Monocytes % 5.6 Eosinophils % 8.1 H Basophils % 0.3 Absolute Neutrophils 4.0 Absolute Lymphocytes 1.5 Absolute Monocytes 0.4 Absolute Eosinophils 0.5 Absolute Basophils 0.0 Sodium 136.8 L Potassium 4.9 Chloride 104 Carbon Dioxide 22 Anion Gap 11 BUN 44 H Creatinine 2.62 H Est GFR ( Amer) 22 L Est GFR (Non-Af Amer) 18 L Glucose 206 H Calcium 7.9 L Urine Color YELLOW Urine Appearance CLOUDY Urine pH 6.0 Ur Specific [place] 1.011 Urine Protein 30 H Urine Glucose (UA) NEGATIVE Urine Ketones NEGATIVE Urine Blood NEGATIVE Urine Nitrite NEGATIVE Ur Leukocyte Esterase LARGE H Urine WBC (Auto) 159 Urine RBC (Auto) 1 Assessment and Plan - Diagnosis (1) Hypotension Is this a current diagnosis for this admission?: Yes Plan: Multifactorial. UA does show UTI and she has dysuria but clinically she does not look septic. No leukocytosis or tachycardia. She complained of subjective fever at home but she has been afebrile in the ER. Lactic acid pending. She does say she has been limiting her fluid intake since she was recently discharged due to her recent fluid overload. She also says she has not been eati ng a lot at home. Blood pressure has significantly improved. Discontinue IV fluids as she is prone to volume overload from her CKD 4. She has rales on the left base. Denies cough or SOB. Will order a chest x-ray. Consider adjusting or discontinuing some of the home meds once verified as she is on Lasix bid at home as well as lopressor, losartan and amlodipine. (2) UTI (urinary tract infection) Is this a current diagnosis for this admission?: Yes Plan: Continue Rocephin. Urine culture sent. (3) Acute on chronic renal failure Is this a current diagnosis for this admission?: Yes Plan: Discontinue fluids for now. Repeat BMP tomorrow. (4) CAD (coronary artery disease) Is this a current diagnosis for this admission?: Yes Plan: Resume home meds. (5) COPD (chronic obstructive pulmonary disease) Qualifiers: Is this a current diagnosis for this admission?: Yes Plan: Stable. Not in exacerbation. (6) Diabetes mellitus, type II, insulin dependent Is this a current diagnosis for this admission?: Yes Plan: Sliding scale for now. Resume long acting once verified. - Time Time Spent with patient: 25-34 minutes
--- NOTE | 2019-04-06 18:31 | ADVANCED CARE ---
- Diagnosis (1) Hypotension Diagnosis Current: Yes (2) UTI (urinary tract infection) Diagnosis Current: Yes (3) Acute on chronic renal failure Diagnosis Current: Yes (4) CAD (coronary artery disease) Diagnosis Current: Yes (5) COPD (chronic obstructive pulmonary disease) Diagnosis Current: Yes (6) Diabetes mellitus, type II, insulin dependent Diagnosis Current: Yes Resuscitation Status: Do Not Resuscitate Discussion: Discussed with patient and her on bedside. She verbalized she does not want any chest compressions, defibrillation or intubation if the need arises. She says "just let me go peacefully if that happens". Her on bedside is her surrogate decision maker.
[2019-04-06] MEDS ORDERED: CEFAZOLIN 1 GM/D5W RTU 1 GM/50 ML RTUPB IV ONE (18:40)
--- NOTE | 2019-04-06 18:49 | RADIOLOGY REPORT (SQ) ---
EXAM DESCRIPTION: CHEST SINGLE VIEW COMPLETED DATE/TIME: 04/06/2019 6:41 pm REASON FOR STUDY: rales COMPARISON: 03/19/2019 EXAM PARAMETERS: NUMBER OF VIEWS: One view. TECHNIQUE: Single frontal radiographic view of the chest acquired. RADIATION DOSE: NA LIMITATIONS: None. FINDINGS: LUNGS AND PLEURA: No opacities, masses or pneumothorax. No pleural effusion. MEDIASTINUM AND HILAR STRUCTURES: No masses. Contour normal. HEART AND VASCULAR STRUCTURES: Heart normal in size. Normal vasculature. BONES: No acute findings. HARDWARE: Sternotomy wires. OTHER: No other significant finding. IMPRESSION: NO ACUTE RADIOGRAPHIC FINDING IN THE CHEST. TECHNICAL DOCUMENTATION: JOB ID: [id number] [email or web address]- All Rights Reserved Reading location - IP/workstation name: [email or web address]
[2019-04-06] MEDS ORDERED: LACTULOSE SYRUP 20 GM/30 ML UDCUP PO ONE (19:54)
[2019-04-06] MEDS: HEPARIN SOD (PORCINE) 5,000 UNIT/ML 1 ML SYRINGE SUBCUT SCH (21:54)
[2019-04-06] MEDS: INSULIN LISPRO 100 UNIT/ML 3 ML VIAL SUBCUT SCH (21:58)
[2019-04-06] MEDS ORDERED: NA PHOS,M-B/NA PHOS,DI-BA (ADULT) 133 ML ENEMA PR ONE (23:00)
[2019-04-06] MEDS ORDERED: ONDANSETRON HCL INJ/PF 4 MG/2 ML SDV IV ONE (23:45)
[2019-04-07] MEDS ORDERED: NA PHOS,M-B/NA PHOS,DI-BA (ADULT) 133 ML ENEMA PR ONE (03:00)
[2019-04-07] MEDS ORDERED: PROMETHAZINE HCL 25 MG TABLET PO ONE (04:30)
[2019-04-07 05:29] LABS: ANION GAP 10 (5-19); BLOOD UREA NITROGEN 41 mg/dL (7-20); CALCIUM 8.4 mg/dL (8.4-10.2); CARBON DIOXIDE 24 mmol/L (22-30); CHLORIDE 104 mmol/L (98-107); GLUCOSE 198 mg/dL (75-110); SODIUM 138.1 mmol/L (137-145)
--- NOTE | 2019-04-07 07:40 | EKG REPORT ---
SEVERITY:- ABNORMAL ECG - SINUS RHYTHM INCOMPLETE LEFT BUNDLE BRANCH BLOCK PROBABLE INFERIOR INFARCT, AGE INDETERMINATE BORDERLINE R WAVE PROGRESSION, ANTERIOR LEADS : Confirmed by: Glenys Quesada MD 07-Apr-2019 07:39:30
[2019-04-07] MEDS: INSULIN LISPRO 100 UNIT/ML 3 ML VIAL SUBCUT SCH ×4 (07:50→20:59)
[2019-04-07 08:22] LABS: ABSOLUTE EOSINOPHILS # (AUTO) 0.6 10^3/uL (0.0-0.6); ABSOLUTE MONOCYTES (AUTO) 0.4 10^3/uL (0.1-1.4); ABSOLUTE NEUT (AUTO) 6.8 10^3/uL (1.7-8.2); BASOPHILS % (AUTO) 0.6 % (0-2); EOSINOPHILS % (AUTO) 6.6 % (0-6); HEMATOCRIT 35.7 % (36.0-47.0); HEMOGLOBIN 11.4 g/dL (12.0-15.5); LYMPHOCYTES % (AUTO) 10.8 % (13-45); MEAN CORPUSCULAR HEMOGLOBIN 28.9 pg (27.0-33.4); MEAN CORPUSCULAR VOLUME 90 fl (80-97); MONOCYTES % (AUTO) 4.7 % (3-13); PLATELET COUNT 136 10^3/uL (150-450); RED BLOOD COUNT 3.95 10^6/uL (3.72-5.28); RED CELL DISTRIBUTION WIDTH 16.2 % (11.5-14.0); SEGMENTED NEUTROPHILS % (AUTO) 77.3 % (42-78); TOTAL CELLS COUNTED % (AUTO) 100 %; WHITE BLOOD COUNT 8.8 10^3/uL (4.0-10.5)
[2019-04-07 08:43] LABS: ALANINE AMINOTRANSFERASE 18 U/L (9-52); ALBUMIN 3.6 g/dL (3.5-5.0); ALKALINE PHOSPHATASE 67 U/L (38-126); ASPARTATE AMINO TRANSFERASE 22 U/L (14-36); BILIRUBIN,DIRECT 0.5 mg/dL (0.0-0.4); BILIRUBIN,TOTAL 0.6 mg/dL (0.2-1.3); TOTAL PROTEIN 6.4 g/dL (6.3-8.2)
[2019-04-07] MEDS ORDERED: CEFTRIAXONE 1 GM/D5W RTU 1 GM/50 ML RTUPB IV SCH (10:00)
[2019-04-07] MEDS ORDERED: METOPROLOL TARTRATE 50 MG TABLET PO SCH (10:00)
[2019-04-07] MEDS ORDERED: CLOPIDOGREL BISULFATE 75 MG TABLET PO SCH (10:00)
[2019-04-07] MEDS ORDERED: LOSARTAN POTASSIUM 25 MG TABLET PO SCH (10:00)
[2019-04-07] MEDS: FUROSEMIDE 20 MG TABLET PO SCH ×2 (10:50→17:41)
[2019-04-07] MEDS: CEFTRIAXONE SODIUM 1,000 MG in DEXTROSE 5%-WATER 50 ML IV SCH (10:51)
[2019-04-07] MEDS: HEPARIN SOD (PORCINE) 5,000 UNIT/ML 1 ML SYRINGE SUBCUT SCH ×2 (10:51→20:59)
[2019-04-07] MEDS: FLUTICASONE/VILANTEROL 200-25 MCG/DOSE IH SCH (10:51)
--- NOTE | 2019-04-07 11:02 | PDOC PROGRESS REPORT ---
Subjective Progress Note for:: 04/07/19 Subjective:: 73 year old female past medical history of chronic respiratory failure on 2 lpm at home, CKD stage IV nonoliguric, anemia of CKD, hyperkalemia, morbid obesity, retention, COPD, CAD status post CABG in 2001 followed by 1 a stent placement in 2002, diabetes and hypertension who was recently admitted and discharged on 03/28 after she was treated for fluid overload and hyperkalemia related to acute on chronic renal failure. She has been doing well until 4 days ago when she started having dysuria and subjective fever at home. She was seen by Dr. Wilson a few days ago and was started on antibiotics for UTI. A urine culture was also sent apparnetly. She was seen by a home health nurse earlier today and was noted to be hypotensive at 70/50 hence EMS was called. She was given 300 cc IV bolus by EM and received another 200 cc in the ER. Her BP improved to 99/50. Currently on encounter, BP is 130/80. 04/07/[id number]-ripw-old female admitted with hypotension as per the patient is not on any blood pressure medications at home except Lasix she came in with systolic blood pressure of 70 to the ER yesterday EMS gave her 300 cc of IV bolus and she received 200 cc of IV fluids in the emergency room by the time Dr. Harvey saw the patient blood pressure improved to 130/80. She was placed in the hospital for observation for further management. Patient denies any complaints today afebrile. Family is requesting for Dr. Serra consultation. Reason For Visit: HYPOTENSION Physical Exam Vital Signs: Temp Pulse Resp BP Pulse Ox 98.4 F 59 L 16 122/34 L 98 04/07/19 07:18 04/07/19 07:18 04/07/19 07:18 04/07/19 07:18 04/07/19 07:18 Intake & Output 04/06/19 04/07/19 04/08/19 06:59 06:59 06:59 Intake Total 790 Balance 790 Weight 82.4 kg General appearance: PRESENT: no acute distress Head exam: PRESENT: atraumatic Eye exam: PRESENT: PERRLA Mouth exam: PRESENT: dry mucosa Teeth exam: PRESENT: poor dentation Neck exam: ABSENT: carotid bruit, JVD, lymphadenopathy, thyromegaly Respiratory exam: PRESENT: decreased breath sounds Cardiovascular exam: PRESENT: RRR. ABSENT: diastolic murmur, rubs, systolic murmur GI/Abdominal exam: PRESENT: normal bowel sounds, soft. ABSENT: distended, guarding, mass, organolmegaly, rebound, tenderness Rectal exam: PRESENT: deferred Extremities exam: PRESENT: full ROM. ABSENT: calf tenderness, clubbing, pedal edema Neurological exam: PRESENT: alert, awake, oriented to person, oriented to place, oriented to time, oriented to situation, CN II-XII grossly intact. ABSENT: motor sensory deficit Psychiatric exam: PRESENT: appropriate affect, normal mood. ABSENT: homicidal ideation, suicidal ideation Results Laboratory Results: 04/07/19 04:34 04/07/19 04:34 04/06/19 04/06/19 04/06/19 15:25 15:25 17:10 WBC 6.4 RBC 3.55 L Hgb 10.4 L Hct 31.9 L MCV 90 MCH 29.2 MCHC 32.6 RDW 15.6 H Plt Count 133 L Seg Neutrophils % 62.0 Lymphocytes % 24.0 Monocytes % 5.6 Eosinophils % 8.1 H Basophils % 0.3 Absolute Neutrophils 4.0 Absolute Lymphocytes 1.5 Absolute Monocytes 0.4 Absolute Eosinophils 0.5 Absolute Basophils 0.0 Sodium 136.8 L Potassium 4.9 Chloride 104 Carbon Dioxide 22 Anion Gap 11 BUN 44 H Creatinine 2.62 H Est GFR ( Amer) 22 L Est GFR (Non-Af Amer) 18 L Glucose 206 H Lactic Acid Calcium 7.9 L Magnesium Total Bilirubin AST ALT Alkaline Phosphatase Total Protein Albumin Urine Color YELLOW Urine Appearance CLOUDY Urine pH 6.0 Ur Specific [place] 1.011 Urine Protein 30 H Urine Glucose (UA) NEGATIVE Urine Ketones NEGATIVE Urine Blood NEGATIVE Urine Nitrite NEGATIVE Ur Leukocyte Esterase LARGE H Urine WBC (Auto) 159 Urine RBC (Auto) 1 04/06/19 04/07/19 04/07/19 18:25 04:34 04:34 WBC 8.8 RBC 3.95 Hgb 11.4 L Hct 35.7 L MCV 90 MCH 28.9 MCHC 32.0 RDW 16.2 H Plt Count 136 L Seg Neutrophils % 77.3 Lymphocytes % 10.8 L Monocytes % 4.7 Eosinophils % 6.6 H Basophils % 0.6 Absolute Neutrophils 6.8 Absolute Lymphocytes 1.0 Absolute Monocytes 0.4 Absolute Eosinophils 0.6 Absolute Basophils 0.0 Sodium 138.1 Potassium 5.0 Chloride 104 Carbon Dioxide 24 Anion Gap 10 BUN 41 H Creatinine 2.72 H Est GFR ( Amer) 21 L Est GFR (Non-Af Amer) 17 L Glucose 198 H Lactic Acid 0.9 Calcium 8.4 Magnesium Total Bilirubin AST ALT Alkaline Phosphatase Total Protein Albumin Urine Color Urine Appearance Urine pH Ur Specific [place] Urine Protein Urine Glucose (UA) Urine Ketones Urine Blood Urine Nitrite Ur Leukocyte Esterase Urine WBC (Auto) Urine RBC (Auto) 04/07/19 04:34 WBC RBC Hgb Hct MCV MCH MCHC RDW Plt Count Seg Neutrophils % Lymphocytes % Monocytes % Eosinophils % Basophils % Absolute Neutrophils Absolute Lymphocytes Absolute Monocytes Absolute Eosinophils Absolute Basophils Sodium Cancelled Potassium Cancelled Chloride Cancelled Carbon Dioxide Cancelled Anion Gap Cancelled BUN Cancelled Creatinine Cancelled Est GFR ( Amer) Cancelled Est GFR (Non-Af Amer) Cancelled Glucose Cancelled Lactic Acid Calcium Cancelled Magnesium 2.0 Total Bilirubin 0.6 AST 22 ALT 18 Alkaline Phosphatase 67 Total Protein 6.4 Albumin 3.6 Urine Color Urine Appearance Urine pH Ur Specific [place] Urine Protein Urine Glucose (UA) Urine Ketones Urine Blood Urine Nitrite Ur Leukocyte Esterase Urine WBC (Auto) Urine RBC (Auto) Impressions: Chest X-Ray 04/06/19 00:00 IMPRESSION: NO ACUTE RADIOGRAPHIC FINDING IN THE CHEST. Assessment and Plan - Diagnosis (1) Hypotension Is this a current diagnosis for this admission?: Yes Plan: Multifactorial. UA does show UTI and she has dysuria but clinically she does not look septic. No leukocytosis or tachycardia. She complained of subjective fever at home but she has been afebrile in the ER. Lactic acid pending. She does say she has been limiting her fluid intake since she was recently discharged due to her recent fluid overload. She also says she has not been eating a lot at home. Blood pressure has significantly improved. Discontinue IV fluids as she is prone to volume overload from her CKD 4. She has rales on the left base. Denies cough or SOB. Will order a chest x-ray. Consider adjusting or discontinuing some of the home meds once verified as she is on Lasix bid at home as well as lopressor, losartan and amlodipine. 04/07/2019-patient admitted with blood pressures of 70/50. Improved to 144/57 this morning. Blood pressure medications on hold. Lasix is also hold. Patient is not in fluid overload. Plan to restart her home medications except for the Lasix for today. Norvasc is also on hold. Plan is to continue to monitor blood pressures for today and probably discharge home tomorrow. (2) Acute on chronic renal failure Is this a current diagnosis for this admission?: Yes Plan: Discontinue fluids for now. Repeat BMP tomorrow. 04/07/2019-patient serum creatinine today is 2.72 at baseline creatinine is between 2-2.2. Plan is to continue to monitor the creatinine on daily basis. ROSA may be secondary to diuretic therapy. (3) UTI (urinary tract infection) Is this a current diagnosis for this admission?: Yes Plan: Continue Rocephin. Urine culture sent. 04/07/[id number]-rczk-old female came in with symptoms of UTI started on IV Rocephin. Urine culture is negative so far blood cultures are negative so far. Patient is afebrile. (4) Anemia in chronic kidney disease (CKD) Is this a current diagnosis for this admission?: Yes Plan: 04/07/2019-patient has history of anemia of chronic disease most likely secondary to CKD she is receiving Procrit injections after Dr. Serra's office as an ou tpatient. Hemoglobin today is 11.4. (5) Diabetes mellitus, type II, insulin dependent Is this a current diagnosis for this admission?: Yes Plan: Sliding scale for now. Resume long acting once verified. 04/07/2019-patient's latest blood sugar is 198. Presently on insulin sliding scale. Plan to check the hemoglobin A1c. Dietary consult was requested. - Time Time Spent with patient: 15-24 minutes Medications reviewed and adjusted accordingly: Yes Anticipated discharge: Home, Home with Homehealth
[2019-04-07] MEDS ORDERED: ATORVASTATIN CALCIUM 40 MG TABLET PO SCH (18:00)
[2019-04-07] MEDS ORDERED: OXYCODONE-ACETAMINOPHEN 5-325 MG TABLET PO PRN (20:39)
[2019-04-08 07:28] LABS: ABSOLUTE EOSINOPHILS # (AUTO) 0.4 10^3/uL (0.0-0.6); ABSOLUTE LYMPHOCYTES (AUTO) 1.1 10^3/uL (0.5-4.7); ABSOLUTE MONOCYTES (AUTO) 0.3 10^3/uL (0.1-1.4); ABSOLUTE NEUT (AUTO) 2.5 10^3/uL (1.7-8.2); HEMATOCRIT 31.5 % (36.0-47.0); HEMOGLOBIN 10.3 g/dL (12.0-15.5); MEAN CORPUSCULAR HEMOGLOBIN 29.1 pg (27.0-33.4); MEAN CORPUSCULAR HGB CONC 32.8 g/dL (32.0-36.0); MEAN CORPUSCULAR VOLUME 89 fl (80-97); MONOCYTES % (AUTO) 7.1 % (3-13); PLATELET COUNT 124 10^3/uL (150-450); RED BLOOD COUNT 3.55 10^6/uL (3.72-5.28); RED CELL DISTRIBUTION WIDTH 15.7 % (11.5-14.0); SEGMENTED NEUTROPHILS % (AUTO) 56.9 % (42-78); TOTAL CELLS COUNTED % (AUTO) 100 %; WHITE BLOOD COUNT 4.5 10^3/uL (4.0-10.5)
[2019-04-08 07:51] LABS: ALANINE AMINOTRANSFERASE 13 U/L (9-52); ALKALINE PHOSPHATASE 50 U/L (38-126); ANION GAP 11 (5-19); ASPARTATE AMINO TRANSFERASE 25 U/L (14-36); BILIRUBIN,DIRECT 0.4 mg/dL (0.0-0.4); BILIRUBIN,TOTAL 0.6 mg/dL (0.2-1.3); BLOOD UREA NITROGEN 36 mg/dL (7-20); CALCIUM 8.3 mg/dL (8.4-10.2); CARBON DIOXIDE 22 mmol/L (22-30); CHLORIDE 105 mmol/L (98-107); GLUCOSE 133 mg/dL (75-110); SODIUM 137.9 mmol/L (137-145); TOTAL PROTEIN 5.3 g/dL (6.3-8.2)
[2019-04-08] MEDS: INSULIN LISPRO 100 UNIT/ML 3 ML VIAL SUBCUT SCH (09:50)
[2019-04-08] MEDS: HEPARIN SOD (PORCINE) 5,000 UNIT/ML 1 ML SYRINGE SUBCUT SCH (09:51)
[2019-04-08] MEDS: CEFTRIAXONE SODIUM 1,000 MG in DEXTROSE 5%-WATER 50 ML IV SCH (09:58)
[2019-04-08] MEDS: FLUTICASONE/VILANTEROL 200-25 MCG/DOSE IH SCH (09:58)
[2019-04-08 11:50] VITALS: BP 125/66
--- NOTE | 2019-04-08 13:42 | PDOC DISCHARGE SUMMARY ---
General - Admit/Disc Date/PCP Admission Date/Primary Care Provider: 04/06/19 17:54 DANI WILSON, DO Discharge Date: 04/08/19 - Discharge Diagnosis (1) Hypotension Is this a current diagnosis for this admission?: Yes Summary: Multifactorial. UA does show UTI and she has dysuria but clinically she does not look septic. No leukocytosis or tachycardia. She complained of subjective fever at home but she has been afebrile in the ER. Lactic acid pending. She does say she has been limiting her fluid intake since she was recently discharged due to her recent fluid overload. She also says she has not been eating a lot at home. Blood pressure has significantly improved. Discontinue IV fluids as she is prone to volume overload from her CKD 4. She has rales on the left base. Denies cough or SOB. Will order a chest x-ray. Consider adjusting or discontinuing some of the home meds once verified as she is on Lasix bid at home as well as lopressor, losartan and amlodipine. 04/07/2019-patient admitted with blood pressures of 70/50. Improved to 144/57 this morning. Blood pressure medications on hold. Lasix is also hold. Patient is not in fluid overload. Plan to restart her home medications except for the Lasix for today. Norvasc is also on hold. Plan is to continue to monitor blood pressures for today and probably discharge home tomorrow. 04/08/2019-patient's blood pressure today is 128/45. Hypotension is resolved. She is going home on amlodipine 5 mg p.o. daily rest of the blood pressure medications are on hold until she is seen and evaluated by the primary care physician. (2) Acute on chronic renal failure Is this a current diagnosis for this admission?: Yes Summary: Discontinue fluids for now. Repeat BMP tomorrow. 04/07/2019-patient serum creatinine today is 2.72 at baseline creatinine is between 2-2.2. Plan is to continue to monitor the creatinine on daily basis. ROSA may be secondary to diuretic therapy. 04/08/2019-patient serum creatinine today is 2.22 baseline creatinine is around 2-2.2 acute kidney injury most likely secondary to poor oral intake resolved. (3) UTI (urinary tract infection) Is this a current diagnosis for this admission?: Yes Summary: Continue Rocephin. Urine culture sent. 04/07/[id number]-tgan-old female came in with symptoms of UTI started on IV Rocephin. Urine culture is negative so far blood cultures are negative so far. Patient is afebrile. 04/08/2019-urine cultures came back negative most likely she has a colonization of the bacteria in the urine treated with IV Rocephin she is afebrile after discontinue the antibiotic therapy. (4) Anemia in chronic kidney disease (CKD) Is this a current diagnosis for this admission?: Yes Summary: 04/07/2019-patient has history of anemia of chronic disease most likely secondary to CKD she is receiving Procrit injections after Dr. Serra's office as an outpatient. Hemoglobin today is 11.4. 04/08/2019-patient has history of anemia of chronic disease most likely secondary to CKD she is receiving Procrit injections as an outpatient hemoglobin is 10.3 today stable. (5) Diabetes mellitus, type II, insulin dependent Is this a current diagnosis for this admission?: Yes Summary: Sliding scale for now. Resume long acting once verified. 04/07/2019-patient's latest blood sugar is 198. Presently on insulin sliding scale. Plan to check the hemoglobin A1c. Dietary consult was requested. 04/08/2019-patient's latest blood sugar is 133 stable. she is on insulin sliding scale. - Additional Information Resuscitation Status: Do Not Resuscitate Discharge Diet: Cardiac Discharge Activity: Activity As Tolerated Home Medications: Amlodipine Besylate [Norvasc 5 mg Tablet] 5 mg PO DAILY 04/07/19 Diazepam [Valium 5 mg Tablet] 5 mg PO Q8HP PRN 04/07/19 Insulin Glargine,Hum.rec.anlog [Lantus Insulin 100 Unit/1 ml 10 ml] 18 unit SUBCUT QHS 04/07/19 Isosorbide Mononitrate [Imdur 30 mg Tablet.er] 30 mg PO DAILY 04/07/19 Metoprolol Succinate [Toprol Xl 50 mg Tab.sr] 50 mg PO DAILY 04/07/19 Ondansetron [Zofran Odt 4 mg Tablet] 4 mg PO Q6 04/07/19 Oxycodone HCl/Acetaminophen [Percocet 5-325 mg Tablet] 1 tab PO Q6HP PRN 04/07/19 Patiromer Calcium Sorbitex [Veltassa] 8.4 gm PO DAILY@1700 04/07/19 Promethazine HCl [Phenergan 25 mg Tablet] 25 mg PO QHS 04/07/19 Atorvastatin Calcium [Lipitor 40 mg Tablet] 40 mg PO QPM tablet 04/08/19 Clopidogrel Bisulfate [Plavix 75 mg Tablet] 75 mg PO DAILY tablet 04/08/19 Fluticasone/Vilanterol [Breo 200-25 Mcg Ellipta 14 Dose/Dpi] 1 inh IH DAILY inhaler 04/08/19 Metoprolol Tartrate [Lopressor 50 mg Tablet] 50 mg PO DAILY tablet 04/08/19 Oxycodone HCl/Acetaminophen [Percocet 5-325 mg Tablet] 1 tab PO Q6HP PRN tablet 04/08/19 History of Present Illness History of Present Illness: PRECIOUS BURCH is a 73 year old female 73 year old female past medical history of chronic respiratory failure on 2 lpm at home, CKD stage IV nonoliguric, anemia of CKD, hyperkalemia, morbid obesity, retention, COPD, CAD status post CABG in 2001 followed by 1 a stent placement in 2002, diabetes and hypertension who was recently admitted and discharged on 03/28 after she was treated for fluid overload and hyperkalemia related to acute on chronic renal failure. She has been doing well until 4 days ago when she started having dysuria and subjective fever at home. She was seen by Dr. Wilson a few days ago and was started on antibiotics for UTI. A urine culture was also sent apparnetly. She w as seen by a home health nurse earlier today and was noted to be hypotensive at 70/50 hence EMS was called. She was given 300 cc IV bolus by EM and received another 200 cc in the ER. Her BP improved to 99/50. Currently on encounter, BP is 130/80. Hospital Course Hospital Course: Patient was admitted with hypotension and presumed UTI hypotension resolved in the emergency room itself patient was placed in the hospital observation for an antibiotic therapy for UTI urine cultures came back negative antibiotics are discontinued yesterday blood pressure stable no acute events during the hospital stay. Patient is going back home with home health today. Physical Exam Vital Signs: Temp Pulse Resp BP Pulse Ox 98.4 F 69 24 H 125/66 98 04/08/19 11:48 04/08/19 11:48 04/08/19 11:48 04/08/19 11:48 04/08/19 11:48 Intake & Output 04/07/19 04/08/19 04/09/19 06:59 06:59 06:59 Intake Total 790 837 50 Output Total 700 Balance 790 137 50 Weight 82.4 kg 83.1 kg Results Laboratory Results: 04/08/19 06:23 04/08/19 06:23 04/08/19 04/08/19 06:23 06:23 WBC 4.5 RBC 3.55 L Hgb 10.3 L Hct 31.5 L MCV 89 MCH 29.1 MCHC 32.8 RDW 15.7 H Plt Count 124 L Seg Neutrophils % 56.9 Lymphocytes % 25.0 Monocytes % 7.1 Eosinophils % 10.0 H Basophils % 1.0 Absolute Neutrophils 2.5 Absolute Lymphocytes 1.1 Absolute Monocytes 0.3 Absolute Eosinophils 0.4 Absolute Basophils 0.0 Sodium 137.9 Potassium 5.0 Chloride 105 Carbon Dioxide 22 Anion Gap 11 BUN 36 H Creatinine 2.22 H Est GFR ( Amer) 26 L Est GFR (Non-Af Amer) 22 L Glucose 133 H Calcium 8.3 L Magnesium 2.1 Total Bilirubin 0.6 AST 25 ALT 13 Alkaline Phosphatase 50 Total Protein 5.3 L Albumin 3.0 L 04/06/19 17:10 Catheterized Urine Urine Culture - Final NO GROWTH 2 DAYS Impressions: Chest X-Ray 04/06/19 00:00 IMPRESSION: NO ACUTE RADIOGRAPHIC FINDING IN THE CHEST. Qualifiers - * PATIENT BEING DISCHARGED WITH ANY OF THE FOLLOWING DIAGNOSIS: No VTE patient discharged on overlapping Therapy?: No Acute Heart Failure Is this a Heart Failure Patient?: No
== END 2019-04-08 12:34 | disposition home health service (06) ==
LOC: ER 15:07 → EH 17:54 → 4S 19:30
PROVIDERS: ADMIT Internal Medicine; ATTEND Internal Medicine
DX: I95.9 Hypotension, unspecified (principal); N39.0 Urinary tract infection, site not specified; E11.22 Type 2 diabetes mellitus with diabetic chronic kidney disease; I13.0 Hypertensive heart and chronic kidney disease with heart failure and stage 1 through stage 4 chronic kidney disease, or unspecified chronic kidney disease; N18.4 Chronic kidney disease, stage 4 (severe); N17.9 Acute kidney failure, unspecified; I50.9 Heart failure, unspecified; D63.1 Anemia in chronic kidney disease; J44.9 Chronic obstructive pulmonary disease, unspecified; I25.2 Old myocardial infarction; Z79.4 Long term (current) use of insulin; Z66 Do not resuscitate; I25.10 Atherosclerotic heart disease of native coronary artery without angina pectoris; Z95.1 Presence of aortocoronary bypass graft; Z95.5 Presence of coronary angioplasty implant and graft; Z79.899 Other long term (current) drug therapy; Z98.84 Bariatric surgery status; Z90.49 Acquired absence of other specified parts of digestive tract; Z82.49 Family history of ischemic heart disease and other diseases of the circulatory system; Z79.02 Long term (current) use of antithrombotics/antiplatelets
CPT/HCPCS: 93005; 99285; 36415 ×3; 87040; 87086; 82962 ×3; 83605; 83735 ×2; 85025 ×3; 80076; 80048 ×2; 80053; 81001; 71045; 93010; G0378 ×4; J0690; A9270 ×8; J0696 ×3; J3490 ×2; J2405; J7060 ×2; J1815

== ENCOUNTER 2019-04-29 16:53 | Observation (INO) | payer MEDICARE, MEDICAID ==
--- NOTE | 2019-04-29 19:24 | RADIOLOGY REPORT (SQ) ---
EXAM DESCRIPTION: CHEST SINGLE VIEW COMPLETED DATE/TIME: 04/29/2019 7:11 pm REASON FOR STUDY: shortness of breath, hx of CHF COMPARISON: 04/06/2019 NUMBER OF VIEWS: One view. TECHNIQUE: Single frontal radiographic view of the chest acquired. LIMITATIONS: None. FINDINGS: LUNGS AND PLEURA: No opacities, masses or pneumothorax. No pleural effusion. MEDIASTINUM AND HILAR STRUCTURES: No masses or contour abnormality. HEART AND VASCULATURE: Cardiac enlargement. Vascular congestion. BONES: No acute findings. HARDWARE: Prior CABG. OTHER: No other significant finding. IMPRESSION: CARDIAC ENLARGEMENT. VASCULAR CONGESTION. TECHNICAL DOCUMENTATION: JOB ID: [id number] [employer]- All Rights Reserved Reading location - IP/workstation name: [email or web address]
[2019-04-29 20:23] LABS: ABSOLUTE EOSINOPHILS # (AUTO) 0.3 10^3/uL (0.0-0.6); ABSOLUTE LYMPHOCYTES (AUTO) 1.1 10^3/uL (0.5-4.7); ABSOLUTE MONOCYTES (AUTO) 0.3 10^3/uL (0.1-1.4); ABSOLUTE NEUT (AUTO) 3.3 10^3/uL (1.7-8.2); BASOPHILS % (AUTO) 0.9 % (0-2); EOSINOPHILS % (AUTO) 6.2 % (0-6); HEMATOCRIT 29.8 % (36.0-47.0); HEMOGLOBIN 9.6 g/dL (12.0-15.5); LYMPHOCYTES % (AUTO) 21.7 % (13-45); MEAN CORPUSCULAR HEMOGLOBIN 29.6 pg (27.0-33.4); MEAN CORPUSCULAR VOLUME 92 fl (80-97); MONOCYTES % (AUTO) 5.8 % (3-13); PLATELET COUNT 131 10^3/uL (150-450); RED BLOOD COUNT 3.23 10^6/uL (3.72-5.28); RED CELL DISTRIBUTION WIDTH 16.5 % (11.5-14.0); SEGMENTED NEUTROPHILS % (AUTO) 65.4 % (42-78); TOTAL CELLS COUNTED % (AUTO) 100 %
--- NOTE | 2019-04-29 20:39 | EKG REPORT ---
SEVERITY:- ABNORMAL ECG - SINUS RHYTHM NONSPECIFIC INTRAVENTRICULAR CONDUCTION DELAY LOW VOLTAGE THROUGHOUT CONSIDER ANTEROSEPTAL INFARCT : Confirmed by: Glenys Quesada MD 29-Apr-2019 20:38:41
[2019-04-29 20:43] LABS: ALANINE AMINOTRANSFERASE 14 U/L (9-52); ALBUMIN 3.4 g/dL (3.5-5.0); ALKALINE PHOSPHATASE 65 U/L (38-126); ANION GAP 7 (5-19); ASPARTATE AMINO TRANSFERASE 25 U/L (14-36); BILIRUBIN,DIRECT 0.4 mg/dL (0.0-0.4); BILIRUBIN,TOTAL 0.5 mg/dL (0.2-1.3); BLOOD UREA NITROGEN 41 mg/dL (7-20); CALCIUM 8.5 mg/dL (8.4-10.2); CARBON DIOXIDE 23 mmol/L (22-30); CHLORIDE 108 mmol/L (98-107); CREATINE KINASE 99 U/L (30-135); GLUCOSE 147 mg/dL (75-110); SODIUM 137.8 mmol/L (137-145); TOTAL PROTEIN 6.6 g/dL (6.3-8.2)
[2019-04-29 20:46] LABS: POTASSIUM 6.4 mmol/L (3.6-5.0)
[2019-04-29 20:56] LABS: CREATINE KINASE MB 1.85 ng/mL (<4.55); NT PRO BNP 5820 pg/mL (5-900); TROPONIN I < 0.012 ng/mL
[2019-04-29] MEDS ORDERED: SODIUM POLYSTYRENE SULFONATE 15 GM/60 ML PO ONE (21:40)
[2019-04-29] MEDS ORDERED: CALCIUM GLUCONATE 1000 MG/10 ML INJ IV ONE (21:40)
[2019-04-29] MEDS ORDERED: FUROSEMIDE INJ/PF 40 MG/4 ML SDV IV ONE ×2 (21:41→22:30)
[2019-04-29] MEDS ORDERED: ALBUTEROL SULFATE 0.083% NEB 2.5 MG/3 ML AMPUL NEB ONE (21:41)
--- NOTE | 2019-04-29 21:43 | ER Document Report ---
ED General - General Chief Complaint: Shortness Of Breath Stated Complaint: SHORTNESS OF BREATH Time Seen by Provider: 04/29/19 18:43 Primary Care Provider: DANI PANDA DO [Primary Care Provider] - Follow up as needed Notes: This is a 73-year-old female patient emergency department chief complaint of shortness of breath. Patient has long-standing history of CHF as well as renal failure. Not on dialysis. Patient states that she cannot take more than about 3 steps without getting short of breath. Followed by Dr. Serra as well as Dr. Quesada. Patient is ready for dialysis if that is needed. She does not want to be resuscitated though if her heart stops. She denies any fever, chills, sweats. Large amount of lower extremity edema. TRAVEL OUTSIDE OF THE [place] IN LAST 30 DAYS: No - HPI Onset: Last week Onset/Duration: Gradual, Worse Severity: Moderate Associated symptoms: Nonproductive cough, Leg swelling, Shortness of breath - Related Data Allergies/Adverse Reactions: amoxicillin trihydrate [From Augmentin] Allergy (Severe, Verified 04/29/19 17:21) stomach cramps, n and v, rash butalbital [From Fiorinal] Allergy (Unknown, Verified 04/29/19 17:21) rash metformin HCl [From Glucophage] Allergy (Unknown, Verified 04/29/19 17:21) rash Potassium Clavulanate * [From Augmentin] Adverse Reaction (Unknown, Verified 04/29/19 17:21) nausea, vomit, epig pain Past Medical History - General Information source: Patient - Social History Smoking Status: Former Smoker Frequency of alcohol use: None Drug Abuse: None Lives with: Spouse/Significant other Family History: CAD, COPD, DM, Hypertension, Malignancy, Other - Kidney disease Patient has suicidal ideation: No Patient has homicidal ideation: No - Past Medical History Cardiac Medical History: Reports: Hx Congestive Heart Failure, Hx Coronary Artery Disease - BYPASS 2001, Hx Heart Attack, Hx Hypercholesterolemia, Hx Hypertension Denies: Hx Atrial Fibrillation, Hx DVT, Hx Pulmonary Embolism Pulmonary Medical History: Reports: Hx Asthma, Hx Bronchitis, Hx COPD, Hx Pneumonia, Hx Respiratory Failure, Hx Sleep Apnea - no cpap insurance does not cover Denies: Hx Tuberculosis Neurological Medical History: Reports: Hx Cerebrovascular Accident - X4. Denies: Hx Seizures Endocrine Medical History: Reports: Hx Diabetes Mellitus Type 2. Denies: Hx Diabetes Mellitus Type 1, Hx Hyperthyroidism, Hx Hypothyroidism Renal/ Medical History: Reports: Hx End Stage Renal Disease, Hx Kidney Stones. Denies: Hx Peritoneal Dialysis GI Medical History: Reports: Hx Ulcer. Denies: Hx Cirrhosis, Hx Gastroesophageal Reflux Disease, Hx Hepatitis, Hx Pancreatitis Musculoskeletal Medical History: Reports Hx Arthritis, Denies Hx Gout, Denies Hx Multiple Sclerosis, Denies Hx Systemic Lupus Erythematosus Skin Medical History: Denies Hx Eczema, Denies Hx Psoriasis Psychiatric Medical History: Reports: Hx Depression Denies: Hx Bipolar Disorder, Hx Schizophrenia Infectious Medical History: Denies: Hx Hepatitis Past Surgical History: Reports: Hx Cardiac Catheterization, Hx Section, Hx Cholecystectomy, Hx Coronary Stent, Hx Gastric Bypass Surgery - 2001, Hx Gynecologic Surgery, Hx Hysterectomy, Hx Open Heart Surgery - 2001 TRIPLE BYPASS, Hx Rectal Surgery, Hx Tubal Ligation - Immunizations Hx Diphtheria, Pertussis, Tetanus Vaccination: No Hx Pneumococcal Vaccination: 11/11/14 Review of Systems - Review of Systems Notes: Constitutional: denies: Chills, Diaphoresis, Fever, Malaise, Weakness EENT: denies: Eye discharge, Blurred vision, Tearing, Double vision, Nose congestion, Nose discharge, Throat swelling, Mouth pain Cardiovascular: denies: Palpitations, Heart racing, +Orthopnea,+ Dyspnea, -Chest pain Respiratory: denies: Cough, Hurts to breathe, Wheezing, +Shortness of breath Gastrointestinal: denies: Abdominal pain, Diarrhea, Nausea, Vomiting, Black stools, bright red blood in stool Genitourinary: denies: Burning, Dysuria, Discharge, Frequency, Flank pain, Hematuria Musculoskeletal: denies: Joint pain, Joint swelling, Muscle pain, Muscle stiffness, back pain Hematologic/Lymphatic: denies: Anemia, Easy bleeding, Easy bruising, Blood clots Neurological/Psychological: denies: Confusion, Dementia, Depression, Loss of consciousness Skin: No lesions, no masses, no skin breakdown, no abscesses Physical Exam - Vital signs Vitals: Temp Pulse Resp BP Pulse Ox 98.0 F 45 L 18 130/45 H 100 04/29/19 18:21 04/29/19 18:21 04/29/19 18:21 04/29/19 18:21 04/29/19 18:21 Interpretation: Normal - General General appearance: Appears well, Alert - HEENT Head: Normocephalic, Atraumatic Eyes: Normal Pupils: PERRL - Respiratory Respiratory status: No respiratory distress Chest status: Nontender Breath sounds: Normal Chest palpation: Normal - Cardiovascular Rhythm: Bradycardia Heart sounds: Normal auscultation. No: S1 appreciated, S2 appreciated Murmur: Yes - 3 - Abdominal Inspection: Normal Distension: No distension Bowel sounds: Normal Tenderness: Nontender Organomegaly: No organomegaly - Back Back: Normal, Nontender - Extremities General upper extremity: Normal inspection, Nontender, Normal color, Normal ROM, Normal temperature General lower extremity: Normal inspection, Nontender, Edema, Normal color, Normal ROM, Normal temperature. No: Connie's sign - Neurological Neuro grossly intact: Yes Cognition: Normal Orientation: AAOx4 [place] Coma Scale Eye Opening: Spontaneous [place] Coma Scale Verbal: Oriented [place] Coma Scale Motor: Obeys Commands [place] Coma Scale Total: 15 Speech: Normal Motor strength normal: LUE, RUE, LLE, RLE Sensory: Normal - Psychological Associated symptoms: Normal affect, Normal mood - Skin Skin Temperature: Warm Skin Moisture: Dry Skin Color: Normal Course - Re-evaluation Re-evalutation: 04/29/19 21:59 Patient has worsening congestive heart failure and worsening renal function with elevated potassium. Will need to treat aggressively to get the potassium down. Patient is a DNR. Does state though that she will take dialysis if needed. I have consulted with the hospitalist. Will admit at this time 04/29/19 21:59 Laboratory 04/29/19 04/29/19 04/29/19 20:05 20:05 20:05 WBC 5.0 RBC 3.23 L Hgb 9.6 L Hct 29.8 L MCV 92 MCH 29.6 MCHC 32.0 RDW 16.5 H Plt Count 131 L Seg Neutrophils % 65.4 Lymphocytes % 21.7 Monocytes % 5.8 Eosinophils % 6.2 H Basophils % 0.9 Absolute Neutrophils 3.3 Absolute Lymphocytes 1.1 Absolute Monocytes 0.3 Absolute Eosinophils 0.3 Absolute Basophils 0.0 Sodium 137.8 Potassium 6.4 H* Chloride 108 H Carbon Dioxide 23 Anion Gap 7 BUN 41 H Creatinine 2.37 H Est GFR ( Amer) 24 L Est GFR (Non-Af Amer) 20 L Glucose 147 H Calcium 8.5 Total Bilirubin 0.5 Direct Bilirubin 0.4 Neonat Total Bilirubin Not Reportable Neonat Direct Bilirubin Not Reportable Neonat Indirect Bili Not Reportable AST 25 ALT 14 Alkaline Phosphatase 65 Creatine Kinase 99 CK-MB (CK-2) 1.85 Troponin I < 0.012 NT-Pro-B Natriuret Pep 5820 H Total Protein 6.6 Albumin 3.4 L Chest X-Ray 04/29/19 18:43 IMPRESSION: CARDIAC ENLARGEMENT. VASCULAR CONGESTION. - Vital Signs Vital signs: Temp Pulse Resp BP Pulse Ox 98.2 F 45 L 20 130/45 H 100 04/29/19 21:05 04/29/19 18:21 04/29/19 21:00 04/29/19 18:21 04/29/19 21:00 - Laboratory Result Diagrams: 04/29/19 20:05 04/29/19 20:05 Laboratory results interpreted by me: 04/29/19 04/29/19 04/29/19 20:05 20:05 20:05 RBC 3.23 L Hgb 9.6 L Hct 29.8 L RDW 16.5 H Plt Count 131 L Eosinophils % 6.2 H Potassium 6.4 H* Chloride 108 H BUN 41 H Creatinine 2.37 H Est GFR ( Amer) 24 L Est GFR (Non-Af Amer) 20 L Glucose 147 H NT-Pro-B Natriuret Pep 5820 H Albumin 3.4 L Critical Care Note - Critical Care Note Total time excluding time spent on procedures (mins): 45 Comments: Hyperkalemia, congestive heart failure, consultation with specialist, coordination of admission orders and direct intervention for hyperkalemia peer Discharge - Discharge Clinical Impression: Hyperkalemia Congestive heart failure Qualifiers: Heart failure type: unspecified Heart failure chronicity: unspecified Qualified Code(s): I50.9 - Heart failure, unspecified Condition: Fair Disposition: ADMITTED INPATIENT Admitting Provider: Anjel (Hospitalist) Unit Admitted: IMCU Referrals: DANI PANDA DO [Primary Care Provider] - Follow up as needed
[2019-04-29] MEDS ORDERED: INSULIN REG, HUMAN 100 UNIT/ML 3 ML VIAL (PYX) IV ONE (21:55)
[2019-04-29] MEDS ORDERED: LACTULOSE SYRUP 20 GM/30 ML UDCUP PO ONE (21:56)
[2019-04-29] MEDS ORDERED: DEXTROSE 50%-WATER 25 GM/50 ML DISP.SYRIN IV ONE (21:56)
[2019-04-29] MEDS ORDERED: DEXTROSE 40% GEL 15 GM TUBE PO PRN ×2 (21:57)
[2019-04-29] MEDS ORDERED: MAG HYDROX/AL HYDROX/SIMETH SUSP 30 ML UDCUP PO PRN (21:57)
[2019-04-29] MEDS ORDERED: ACETAMINOPHEN 325 MG TABLET PO PRN (21:57)
[2019-04-29] MEDS ORDERED: DEXTROSE 50%-WATER 25 GM/50 ML DISP.SYRIN IV PRN ×2 (21:57)
[2019-04-29] MEDS ORDERED: GLUCAGON,HUMAN RECOMB 1 MG INJ IM PRN (21:57)
[2019-04-29] MEDS ORDERED: IPRATROPIUM/ALBUTEROL 0.5-2.5 MG/3 ML AMPUL NEB PRN (21:57)
[2019-04-29] MEDS ORDERED: NORMAL SALINE 1000 ML 1,000 ML IV ONE (22:01)
[2019-04-29] MEDS ORDERED: HEPARIN SOD (PORCINE) 5,000 UNIT/ML 1 ML SYRINGE SUBCUT ONE (22:30)
[2019-04-30] MEDS ORDERED: NA PHOS,M-B/NA PHOS,DI-BA (ADULT) 133 ML ENEMA PR ONE (01:00)
--- NOTE | 2019-04-30 04:44 | PDOC H&P ---
History of Present Illness Admission Date/PCP: 04/29/19 22:18 DANI PANDA DO Patient complains of: Shortness of breath History of Present Illness: PRECIOUS BURCH is a 73 year old female with a past medical history of oxygen dependent COPD, nonoliguric stage IV chronic kidney disease, anemia of CKD, morbid obesity coronary artery disease status post coronary artery bypass graft 2001 with subsequent stent placed 2002, moderate diastolic heart failure diabete s hypertension and recurrent presentation for critical hyperkalemia. Patient presents with uncontrolled hypertension in the 196 systolic, shortness of breath and hyperkalemia of 6.4 with intraventricular conduction delay. She started on calcium, dextrose, insulin and Kayexalate. Patient admits to noncompliance with daily Kayexalate, understanding the need for daily bowel movements but stating she prefers to have a bowel movement every other day. Patient expresses interest in hemodialysis Past Medical History Cardiac Medical History: Reports: Congestive Heart Failure, Coronary Artery Disease - BYPASS 2001, Myocardial Infarction, Hyperlipidema, Hypertension Denies: Atrial Fibrillation, DVT, Pulmonary Embolism Pulmonary Medical History: Reports: Asthma, Bronchitis, Chronic Obstructive Pulmonary Disease (COPD), Pneumonia, Respiratory Failure, Sleep Apnea - no cpap insurance does not cover Denies: Tuberculosis Neurological Medical History: Denies: Seizures Endocrine Medical History: Reports: Diabetes Mellitus Type 2 Denies: Diabetes Mellitus Type 1, Hyperthyroidism, Hypothyroidism Renal/ Medical History: Reports: End Stage Renal Disease GI Medical History: Denies: Cirrhosis, Gastroesophageal Reflux Disease, Hepatitis Musculoskeltal Medical History: Reports: Arthritis Denies: Gout Skin Medical History: Denies: Eczema, Psoriasis Psychiatric Medical History: Reports: Depression Denies: Bipolar Disorder Hematology: Reports: Anemia, Bleeding Tendencies Denies: Hemophilia, Sickle Cell Disease Past Surgical History Past Surgical History: Reports: Cardiac Catheterization, Section, Cholecystectomy, Coronary Stent, Gastric Bypass Surgery - 2001, Hysterectomy, Tubal Ligation Denies: Amputation Social History Information Source: Patient Lives with: Spouse/Significant other Smoking Status: Former Smoker Frequency of Alcohol Use: None Hx Recreational Drug Use: No Drugs: None Hx Prescription Drug Abuse: No - Advance Directive Resuscitation Status: Full Code Family History Family History: CAD, COPD, DM, Hypertension, Malignancy, Other - Kidney disease Parental Family History Reviewed: Yes Children Family History Reviewed: Yes Sibling(s) Family History Reviewed.: Yes Medication/Allergy Home Medications: Aspirin [Adult Low Dose Aspirin EC] 81 mg PO DAILY 04/29/19 Atenolol [Tenormin] 25 mg PO DAILY 04/29/19 Doxazosin Mesylate [Cardura 2 mg Tablet] 2 mg PO DAILY 04/29/19 Ezetimibe [Zetia 10 mg Tablet] 10 mg PO DAILY 04/29/19 Gabapentin [Neurontin 300 mg Capsule] 300 mg PO TID 04/29/19 Metformin HCl 500 mg PO DAILY 04/29/19 Omeprazole 20 mg PO DAILY 04/29/19 Rosuvastatin Calcium 10 mg PO DAILY 04/29/19 Valsartan 80 tab PO DAILY 04/29/19 Allergies/Adverse Reactions: amoxicillin trihydrate [From Augmentin] Allergy (Severe, Verified 04/29/19 17:21) stomach cramps, n and v, rash butalbital [From Fiorinal] Allergy (Unknown, Verified 04/29/19 17:21) rash metformin HCl [From Glucophage] Allergy (Unknown, Verified 04/29/19 17:21) rash Potassium Clavulanate * [From Augmentin] Adverse Reaction (Unknown, Verified 04/29/19 17:21) nausea, vomit, epig pain Review of Systems Constitutional: ABSENT: chills, fever(s), headache(s), weight gain, weight loss Eyes: ABSENT: visual disturbances Ears: ABSENT: hearing changes Cardiovascular: ABSENT: chest pain, dyspnea on exertion, edema, orthropnea, palpitations Respiratory: ABSENT: cough, hemoptysis Gastrointestinal: PRESENT: as per HPI, abdominal pain, bloating, constipation. ABSENT: diarrhea Genitourinary: ABSENT: dysuria, hematuria Musculoskeletal: ABSENT: joint swelling Integumentary: ABSENT: rash, wounds Neurological: ABSENT: abnormal gait, abnormal speech, confusion, dizziness, focal weakness, syncope Psychiatric: ABSENT: anxiety, depression, homidical ideation, suicidal ideation Endocrine: ABSENT: cold intolerance, heat intolerance, polydipsia, polyuria Hematologic/Lymphatic: ABSENT: easy bleeding, easy bruising Physical Exam Vital Signs: Temp Pulse Resp BP Pulse Ox 97.4 F 75 17 160/56 H 100 04/29/19 23:55 04/29/19 23:55 04/29/19 23:55 04/29/19 23:55 04/29/19 23:55 Intake & Output 04/28/19 04/29/19 04/30/19 11:59 11:59 11:59 Weight 91.1 kg General appearance: PRESENT: no acute distress, obese, well-developed, well- nourished Head exam: PRESENT: atraumatic, normocephalic Eye exam: PRESENT: conjunctiva pink, EOMI, PERRLA. ABSENT: scleral icterus Ear exam: PRESENT: normal external ear exam Mouth exam: PRESENT: moist, tongue midline Neck exam: ABSENT: carotid bruit, JVD, lymphadenopathy, thyromegaly Respiratory exam: PRESENT: accessory muscle use, crackles, retraction, symmetrical, tachypnea. ABSENT: rales, rhonchi, wheezes Cardiovascular exam: PRESENT: RRR. ABSENT: diastolic murmur, rubs, systolic murmur Pulses: PRESENT: normal dorsalis pedis pul Vascular exam: PRESENT: normal capillary refill GI/Abdominal exam: PRESENT: normal bowel sounds, soft. ABSENT: distended, guarding, mass, organolmegaly, rebound, tenderness Rectal exam: PRESENT: deferred Extremities exam: PRESENT: full ROM. ABSENT: calf tenderness, clubbing, pedal edema Neurological exam: PRESENT: alert, awake, oriented to person, oriented to place, oriented to time, oriented to situation, CN II-XII grossly intact. ABSENT: motor sensory deficit Psychiatric exam: PRESENT: appropriate affect, normal mood. ABSENT: homicidal ideation, suicidal ideation Skin exam: PRESENT: dry, intact, warm. ABSENT: cyanosis, rash Results Laboratory Results: 04/29/19 20:05 04/29/19 20:05 04/29/19 04/29/19 20:05 20:05 WBC 5.0 RBC 3.23 L Hgb 9.6 L Hct 29.8 L MCV 92 MCH 29.6 MCHC 32.0 RDW 16.5 H Plt Count 131 L Seg Neutrophils % 65.4 Lymphocytes % 21.7 Monocytes % 5.8 Eosinophils % 6.2 H Basophils % 0.9 Absolute Neutrophils 3.3 Absolute Lymphocytes 1.1 Absolute Monocytes 0.3 Absolute Eosinophils 0.3 Absolute Basophils 0.0 Sodium 137.8 Potassium 6.4 H* Chloride 108 H Carbon Dioxide 23 Anion Gap 7 BUN 41 H Creatinine 2.37 H Est GFR ( Amer) 24 L Est GFR (Non-Af Amer) 20 L Glucose 147 H Calcium 8.5 Total Bilirubin 0.5 AST 25 ALT 14 Alkaline Phosphatase 65 Total Protein 6.6 Albumin 3.4 L 04/29/19 04/29/19 20:05 20:05 Creatine Kinase 99 CK-MB (CK-2) 1.85 Troponin I < 0.012 NT-Pro-B Natriuret Pep 5820 H Impressions: Chest X-Ray 04/29/19 18:43 IMPRESSION: CARDIAC ENLARGEMENT. VASCULAR CONGESTION. Assessment and Plan - Diagnosis (1) Hypertensive urgency Is this a current diagnosis for this admission?: Yes Plan: IV hydralazine, nitrates and Lasix (2) Hyperkalemia Is this a current diagnosis for this admission?: Yes Plan: Complicated by intraventricular conduction delay with bradycardia, chronic kidney disease, noncompliance. Kayexalate, insulin, calcium gluconate, follow- up chemistry and nephrology consult (3) Diastolic heart failure Is this a current diagnosis for this admission?: Yes Plan: Secondary to #1, optimize pressure and volume status (4) Chronic kidney disease (CKD) Is this a current diagnosis for this admission?: Yes Plan: Complicated by noncompliance, follow-up nephrology consult (5) Constipation Is this a current diagnosis for this admission?: Yes Plan: Kayexalate, lactulose and Fleet enema
[2019-04-30] MEDS ORDERED: CALCIUM GLUCONATE 1,000 MG in DEXTROSE 5%-WATER 50 ML IV ONE (05:00)
[2019-04-30] MEDS: PANTOPRAZOLE SODIUM 20 MG TABLET.DR PO SCH (05:51)
[2019-04-30] MEDS: HEPARIN SOD (PORCINE) 5,000 UNIT/ML 1 ML SYRINGE SUBCUT SCH (05:51)
[2019-04-30] MEDS ORDERED: CALCIUM GLUCONATE 1000 MG/10 ML INJ IV ONE (05:56)
[2019-04-30 06:43] LABS: ABSOLUTE EOSINOPHILS # (AUTO) 0.2 10^3/uL (0.0-0.6); ABSOLUTE LYMPHOCYTES (AUTO) 0.9 10^3/uL (0.5-4.7); ABSOLUTE MONOCYTES (AUTO) 0.3 10^3/uL (0.1-1.4); ABSOLUTE NEUT (AUTO) 2.9 10^3/uL (1.7-8.2); BASOPHILS % (AUTO) 0.6 % (0-2); EOSINOPHILS % (AUTO) 4.7 % (0-6); HEMATOCRIT 27.2 % (36.0-47.0); HEMOGLOBIN 8.8 g/dL (12.0-15.5); MEAN CORPUSCULAR HEMOGLOBIN 29.6 pg (27.0-33.4); MEAN CORPUSCULAR HGB CONC 32.5 g/dL (32.0-36.0); MEAN CORPUSCULAR VOLUME 91 fl (80-97); MONOCYTES % (AUTO) 7.3 % (3-13); PLATELET COUNT 107 10^3/uL (150-450); RED BLOOD COUNT 2.99 10^6/uL (3.72-5.28); SEGMENTED NEUTROPHILS % (AUTO) 66.4 % (42-78); TOTAL CELLS COUNTED % (AUTO) 100 %; WHITE BLOOD COUNT 4.3 10^3/uL (4.0-10.5)
[2019-04-30 07:02] LABS: ANION GAP 9 (5-19); BLOOD UREA NITROGEN 37 mg/dL (7-20); CALCIUM 8.5 mg/dL (8.4-10.2); CARBON DIOXIDE 21 mmol/L (22-30); CHLORIDE 110 mmol/L (98-107); GLUCOSE 176 mg/dL (75-110); SODIUM 139.6 mmol/L (137-145)
[2019-04-30 07:04] LABS: POTASSIUM 5.1 mmol/L (3.6-5.0)
[2019-04-30] MEDS: IPRATROPIUM/ALBUTEROL 0.5-2.5 MG/3 ML AMPUL NEB SCH ×2 (08:01→19:44)
[2019-04-30] MEDS: INSULIN LISPRO 100 UNIT/ML 3 ML VIAL SUBCUT SCH ×3 (09:21→17:10)
[2019-04-30] MEDS: FUROSEMIDE INJ/PF 40 MG/4 ML SDV IV SCH ×2 (09:33→22:49)
[2019-04-30] MEDS: GABAPENTIN 300 MG CAPSULE PO SCH ×3 (09:33→18:06)
[2019-04-30] MEDS: ATENOLOL 50 MG TABLET PO SCH (09:33)
[2019-04-30] MEDS: ASPIRIN 81 MG TABLET, ENT COATED PO SCH (09:33)
[2019-04-30] MEDS: DOXAZOSIN MESYLATE 2 MG TABLET PO SCH (09:34)
[2019-04-30] MEDS ORDERED: ZINC OXIDE 20% OINTMENT 28.35 GM TP PRN (10:00)
[2019-04-30] MEDS ORDERED: EPOETIN ALFA INJ 20000 UNIT/1 ML VIAL (RENAL) SUBCUT SCH (10:30)
--- NOTE | 2019-04-30 10:33 | PDOC CONSULTATION ---
Consultation Consult Date: 04/30/19 Provider Consulted: CARLOS LARSON Consult reason:: I was asked to see the patient due to hyperkalemia and chronic kidney disease. History of Present Illness Admission Date/PCP: 04/29/19 22:18 DANI WILSON DO History of Present Illness: PRECIOUS BURCH is a 73 year old female with history of chronic kidney disease stage IV, diabetes mellitus type 2, hypertension, coronary artery disease status post CABG, diastolic CHF, possible urinary retention who was sent to the emergency room from Dr. Bean's office yesterday because of shortness of breath. Of note the patient has multiple hospitalization for the last 2 to [address] Wilson upon presentation she has elevated blood pressure, the highest recorded was 196/78. She also has elevated potassium of 6.4 with findings of intraventricular conduction delay on EKG. She was given anti-pota ssium regimen including calcium gluconate twice, D50 with insulin, furosemide 40 mg IV, Kayexalate 30 g and later on Fleet enema. This has produced good results with repeat potassium currently at 5.1 and patient had a good bowel movement yesterday. Patient's initial admitting kidney function include a BUN of 41, creatinine of 2.37 with EGFR of 20. Her current kidney function include a BUN of 37, creatinine of 2.28 and EGFR of 21. Patient is also anemic with hemoglobin at presentation of 9.6, currently at 8.8. Her last Procrit shot in our office was last week Saturday. Patient states that she had an episode of urinary tract infection about a week ago treated with 7 days of nitrofurantoin by Dr. Wilson. Last Saturday it was changed to Keflex. She also admits that she has dyspnea on exertion and worsening leg swelling. She claims that she is taking all her medications and she takes Lasix 40 mg in the morning and 20 mg at night. She was supposed to be taking Veltassa but then since last hospitalization at the end of March she said she quit taking them because she does not feel like it is doing anything. She reports dysuria prior to treatment for UTI but currently she feels fine. She said she is making urine but then sometimes she feels like she is not emptying her bladder as well. She denies any gross blood in the urine or blood in the stool. She has appointment with her urologist, Dr. Lawton on May 04 for evaluation of urinary retention. Past Medical History Cardiac Medical History: Reports: Coronary Artery Disease - CABG in 2001, Hyperlipidemia, Hypertension-primary, Myocardial Infarction Pulmonary Medical History: Reports: Asthma, Chronic Obstructive Pulmonary Disease (COPD), Pneumonia, Respiratory Failure, Sleep Apnea - no cpap insurance does not cover Endocrine Medical History: Reports: Diabetes Mellitus Type 2 Renal/ Medical History: Reports: Chronic Kidney Disease Stage IV Musculoskeltal Medical History: Reports: Arthritis Psychiatric Medical History: Reports: Depression Hematology Medical History: Reports Anemia of Chronic Kidney Disease Past Surgical History Past Surgical History: Reports: Cardiac Catheterization, Section, Cholecystectomy, Coronary Stent, Gastric Bypass Surgery - 2001, Hysterectomy, Tubal Ligation Social History Information Source: Patient, [facility], [facility] Records Lives with: Spouse/Significant other Smoking Status: Former Smoker Frequency of Alcohol Use: None Hx Recreational Drug Use: No Drugs: None Hx Prescription Drug Abuse: No - Advance Directive Resuscitation Status: Full Code Family History Family History: Reviewed & Not Pertinent Parental Family History Reviewed: Yes Children Family History Reviewed: Yes Sibling(s) Family History Reviewed.: Yes Medication/Allergy Home Medications: Aspirin [Adult Low Dose Aspirin EC] 81 mg PO DAILY 04/29/19 Ezetimibe [Zetia 10 mg Tablet] 10 mg PO DAILY 04/29/19 Gabapentin [Neurontin 300 mg Capsule] 600 mg PO Q12 04/29/19 Amlodipine Besylate [Norvasc 5 mg Tablet] 5 mg PO DAILY 04/30/19 Clopidogrel Bisulfate [Plavix 75 mg Tablet] 75 mg PO DAILY 04/30/19 Fenofibrate 160 mg PO DAILY 04/30/19 Furosemide [Lasix 20 mg Tablet] 20 mg PO DAILY 04/30/19 Insulin Glargine,Hum.rec.anlog [Lantus Insulin 100 Unit/1 ml 10 ml] 18 unit SQ QHS 04/30/19 Isosorbide Mononitrate [Imdur 60 mg Tablet.er] 60 mg PO DAILY 04/30/19 Linaclotide [Linzess] 72 mcg PO [id number] 04/30/19 Loratadine [Claritin 10 mg Tablet] 10 mg PO DAILY 04/30/19 Metoprolol Succinate [Toprol Xl 25 mg Tab.sr] 25 mg PO DAILY 04/30/19 Montelukast Sodium [Singulair 10 mg Tablet] 10 mg PO QHS 04/30/19 Omeprazole 40 mg PO BID 04/30/19 Oxycodone HCl/Acetaminophen [Percocet 5-325 mg Tablet] 1 tab PO Q6HP PRN 04/30/19 Rosuvastatin Calcium [Crestor] 40 mg PO QHS 04/30/19 Sitagliptin Phosphate [Januvia] 100 mg PO DAILY 04/30/19 Telmisartan [Micardis 20 mg Tablet] 20 mg PO DAILY 04/30/19 Allergies/Adverse Reactions: amoxicillin trihydrate [From Augmentin] Allergy (Severe, Verified 04/29/19 17:21) stomach cramps, n and v, rash butalbital [From Fiorinal] Allergy (Unknown, Verified 04/29/19 17:21) rash metformin HCl [From Glucophage] Allergy (Unknown, Verified 04/29/19 17:21) rash Potassium Clavulanate * [From Augmentin] Adverse Reaction (Unknown, Verified 04/29/19 17:21) nausea, vomit, epig pain Review of Systems All systems: reviewed and no additional remarkable complaints except as stated Review of Systems: Constitutional: ABSENT: chills, fatigue, fever(s), headache(s), weight gain, weight loss Eyes: ABSENT: visual disturbances Ears: ABSENT: hearing changes Cardiovascular: ABSENT: chest pain, orthropnea, palpitations; admits dyspnea on exertion and edema Respiratory: ABSENT: cough, dyspnea, hemoptysis Gastrointestinal: ABSENT: abdominal pain, constipation, diarrhea, hematemesis, hematochezia, nausea, vomiting Genitourinary: ABSENT: dysuria, hematuria Musculoskeletal: ABSENT: joint swelling Integumentary: ABSENT: rash, wounds Neurological: ABSENT: abnormal gait, abnormal speech, confusion, dizziness, focal weakness, numbness, syncope Psychiatric: ABSENT: anxiety, depression Endocrine: ABSENT: cold intolerance, heat intolerance, polydipsia, polyuria Hematologic/Lymphatic: ABSENT: easy bleeding, easy bruising, lymphadenopathy Physical Exam Vital Signs: Temp Pulse Resp BP Pulse Ox 97.4 F 73 20 140/50 H 100 04/30/19 09:32 04/30/19 09:32 04/30/19 09:32 04/30/19 09:32 04/30/19 09:32 Intake & Output 0604/30/19 05/01/19 06:59 06:59 06:59 Output Total 2300 Balance -2300 Weight 88.5 kg Exam: General appearance: No acute distress, cooperative, well-developed, well- nourished Head exam: PRESENT: atraumatic, normocephalic Eye exam: PRESENT: Conjunctiva pale, EOMI, PERRLA. ABSENT: conjunctival injection, scleral icterus Mouth exam: PRESENT: moist, neck supple, tongue midline Neck exam: PRESENT: full ROM. ABSENT: carotid bruit, JVD, lymphadenopathy, thyromegaly Respiratory exam: PRESENT: Diminished to auscultation bilaterally. ABSENT: rales, rhonchi, stridor, wheezes Cardiovascular exam: PRESENT: RRR, +S1, +S2. Grade 2/6 systolic murmur Pulses: PRESENT: normal radial pulses, normal dorsalis pedis pulses GI/Abdominal exam: PRESENT: normal bowel sounds, soft. ABSENT: guarding, mass, tenderness Rectal exam: Deferred Extremities exam: PRESENT: full ROM. Grade 1-2 bilateral lower extremity pitting edema ABSENT: calf tenderness Musculoskeletal: PRESENT: full ROM. ABSENT: deformity Neurological exam: PRESENT: alert, Awake, Oriented to person, Oriented to place, Oriented to time, reflexes normal, CN II-XII grossly intact. ABSENT: motor sensory deficit Psychiatric exam: PRESENT: appropriate affect, normal mood. ABSENT: homicidal ideation, suicidal ideation Skin exam: PRESENT: intact, dry, warm. ABSENT: rash Results Laboratory Results: 04/30/19 06:27 04/30/19 06:27 04/29/19 04/29/19 04/30/19 20:05 20:05 06:27 WBC 5.0 4.3 RBC 3.23 L 2.99 L Hgb 9.6 L 8.8 L Hct 29.8 L 27.2 L MCV 92 91 MCH 29.6 29.6 MCHC 32.0 32.5 RDW 16.5 H 16.0 H Plt Count 131 L 107 L Seg Neutrophils % 65.4 66.4 Lymphocytes % 21.7 21.0 Monocytes % 5.8 7.3 Eosinophils % 6.2 H 4.7 Basophils % 0.9 0.6 Absolute Neutrophils 3.3 2.9 Absolute Lymphocytes 1.1 0.9 Absolute Monocytes 0.3 0.3 Absolute Eosinophils 0.3 0.2 Absolute Basophils 0.0 0.0 Sodium 137.8 Potassium 6.4 H* Chloride 108 H Carbon Dioxide 23 Anion Gap 7 BUN 41 H Creatinine 2.37 H Est GFR ( Amer) 24 L Est GFR (Non-Af Amer) 20 L Glucose 147 H Calcium 8.5 Total Bilirubin 0.5 AST 25 ALT 14 Alkaline Phosphatase 65 Total Protein 6.6 Albumin 3.4 L 04/30/19 06:27 WBC RBC Hgb Hct MCV MCH MCHC RDW Plt Count Seg Neutrophils % Lymphocytes % Monocytes % Eosinophils % Basophils % Absolute Neutrophils Absolute Lymphocytes Absolute Monocytes Absolute Eosinophils Absolute Basophils Sodium 139.6 Potassium 5.1 H D Chloride 110 H Carbon Dioxide 21 L Anion Gap 9 BUN 37 H Creatinine 2.28 H Est GFR ( Amer) 26 L Est GFR (Non-Af Amer) 21 L Glucose 176 H Calcium 8.5 Total Bilirubin AST ALT Alkaline Phosphatase Total Protein Albumin 04/29/19 04/29/19 20:05 20:05 Creatine Kinase 99 CK-MB (CK-2) 1.85 Troponin I < 0.012 NT-Pro-B Natriuret Pep 5820 H Impressions: Chest X-Ray 04/29/19 18:43 IMPRESSION: CARDIAC ENLARGEMENT. VASCULAR CONGESTION. Assessment & Plan - Diagnosis (1) CKD (chronic kidney disease), stage IV Is this a current diagnosis for this admission?: Yes Plan: This is likely due to combination of diabetes and hypertension. Patient is currently nonoliguric. She is actually at her baseline kidney function. He does not need any acute renal replacement therapy at this time. We will check patient's phosphorus, urine protein to creatinine ratio, urinalysis, vitamin D and PTH while here in the hospital. Please monitor intake and output. Follow prerenal low potassium diet. (2) Hyperkalemia Is this a current diagnosis for this admission?: Yes Plan: Patient's potassium currently improved. Advised regarding the effect of Veltassa to lower potassium and encourage compliance. Needs low potassium diet. Resume Veltassa 8.4 g daily. (3) Acute on chronic diastolic (congestive) heart failure Is this a current diagnosis for this admission?: Yes Plan: Continue Lasix 40 mg IV every 12 hours. Follow CHF diet with low-salt. (4) Anemia in chronic kidney disease (CKD) Is this a current diagnosis for this admission?: Yes Plan: Patient had good iron stores. Continue Procrit 20,000 units subcutaneously weekly while here in the hospital. (5) Hypertension Is this a current diagnosis for this admission?: Yes Plan: Currently improved and controlled. (6) CAD (coronary artery disease) Is this a current diagnosis for this admission?: Yes (7) Diabetes mellitus type 2 in obese Is this a current diagnosis for this admission?: Yes - Notes Notes: Thank you very much for this consultation. We will follow the patient with you. - Time Time Spent: Greater than 70 Minutes
[2019-04-30] MEDS: OXYCODONE-ACETAMINOPHEN 5-325 MG TABLET PO PRN (11:34)
[2019-04-30] MEDS ORDERED: PATIROMER 8.4 GM SUSP PACKET PO SCH (17:00)
--- NOTE | 2019-04-30 19:10 | PDOC PROGRESS REPORT ---
Subjective Progress Note for:: 04/30/19 Subjective:: PRECIOUS BURCH is a 73 year old female with a past medical history of oxygen dependent COPD, nonoliguric stage IV chronic kidney disease, anemia of CKD, morbid obesity coronary artery disease status post coronary artery bypass graft 2001 with subsequent stent placed 2002, moderate diastolic heart failure diabetes hypertension and recurrent presentation for critical hyperkalemia. Patient presents with uncontrolled hypertension in the 196 systolic, shortness of breath and hyperkalemia of 6.4 with intraventricular conduction delay. She started on calcium, dextrose, insulin and Kayexalate. Patient admits to noncompliance with daily Kayexalate, understanding the need for daily bowel movements but stating she prefers to have a bowel movement every other day. Patient expresses interest in hemodialysis Reason For Visit: CKD,HYPERKALEMIA Physical Exam Vital Signs: Temp Pulse Resp BP Pulse Ox 98.5 F 55 L 18 131/44 H 99 04/30/19 15:24 04/30/19 15:24 04/30/19 15:24 04/30/19 15:24 04/30/19 15:24 Intake & Output 04/29/19 04/30/19 05/01/19 06:59 06:59 06:59 Intake Total 1773 Output Total 2300 Balance -2300 1773 Weight 88.5 kg General appearance: PRESENT: obese Head exam: PRESENT: atraumatic, normocephalic Respiratory exam: PRESENT: clear to auscultation cheli. ABSENT: rales, rhonchi, wheezes Cardiovascular exam: PRESENT: RRR. ABSENT: diastolic murmur, rubs, systolic murmur GI/Abdominal exam: PRESENT: normal bowel sounds, soft. ABSENT: distended, guarding, mass, organolmegaly, rebound, tenderness Extremities exam: PRESENT: full ROM. ABSENT: calf tenderness, clubbing, pedal edema Neurological exam: PRESENT: alert, awake, oriented to person, oriented to place, oriented to time, oriented to situation, CN II-XII grossly intact. ABSENT: motor sensory deficit Results Laboratory Results: 04/30/19 06:27 04/30/19 06:27 04/29/19 04/29/19 04/30/19 20:05 20:05 06:27 WBC 5.0 4.3 RBC 3.23 L 2.99 L Hgb 9.6 L 8.8 L Hct 29.8 L 27.2 L MCV 92 91 MCH 29.6 29.6 MCHC 32.0 32.5 RDW 16.5 H 16.0 H Plt Count 131 L 107 L Seg Neutrophils % 65.4 66.4 Lymphocytes % 21.7 21.0 Monocytes % 5.8 7.3 Eosinophils % 6.2 H 4.7 Basophils % 0.9 0.6 Absolute Neutrophils 3.3 2.9 Absolute Lymphocytes 1.1 0.9 Absolute Monocytes 0.3 0.3 Absolute Eosinophils 0.3 0.2 Absolute Basophils 0.0 0.0 Sodium 137.8 Potassium 6.4 H* Chloride 108 H Carbon Dioxide 23 Anion Gap 7 BUN 41 H Creatinine 2.37 H Est GFR ( Amer) 24 L Est GFR (Non-Af Amer) 20 L Glucose 147 H Calcium 8.5 Total Bilirubin 0.5 AST 25 ALT 14 Alkaline Phosphatase 65 Total Protein 6.6 Albumin 3.4 L 04/30/19 06:27 WBC RBC Hgb Hct MCV MCH MCHC RDW Plt Count Seg Neutrophils % Lymphocytes % Monocytes % Eosinophils % Basophils % Absolute Neutrophils Absolute Lymphocytes Absolute Monocytes Absolute Eosinophils Absolute Basophils Sodium 139.6 Potassium 5.1 H D Chloride 110 H Carbon Dioxide 21 L Anion Gap 9 BUN 37 H Creatinine 2.28 H Est GFR ( Amer) 26 L Est GFR (Non-Af Amer) 21 L Glucose 176 H Calcium 8.5 Total Bilirubin AST ALT Alkaline Phosphatase Total Protein Albumin 04/29/19 04/29/19 20:05 20:05 Creatine Kinase 99 CK-MB (CK-2) 1.85 Troponin I < 0.012 NT-Pro-B Natriuret Pep 5820 H Impressions: Chest X-Ray 04/29/19 18:43 IMPRESSION: CARDIAC ENLARGEMENT. VASCULAR CONGESTION. Assessment and Plan - Diagnosis (1) Hyperkalemia Is this a current diagnosis for this admission?: Yes Plan: Improving. Potassium 5.4 today. Initially patient presented with bradycardia. Received calcium gluconate, started on Kayexalate and admitted to telemetry. Hyperkalemia could be likely due to noncompliance. Stating that she has not been taking Veltassa because it was not working. Continue Veltassa, hyperkalemia protocol, telemetry. (2) Hypertensive urgency Is this a current diagnosis for this admission?: Yes Plan: Improving. SBP 140s. Continue beta-blockers, Lasix, IV hydralazine PRN. SBP of 180s to 90s on admission. No anginal pain on admission. Troponins negative. Patient has CKD which was at baseline on presentation. (3) Constipation Is this a current diagnosis for this admission?: Yes Plan: Kayexalate, lactulose and Fleet enema (4) Diastolic heart failure Is this a current diagnosis for this admission?: Yes Plan: Does not seem to be exacerbated. Continue cardiac diet, monitor volume status, IV Lasix. Beta-blockers, JOSE. (5) Depression Is this a current diagnosis for this admission?: Yes Plan: Denies any suicidal or homicidal ideation. Restart home meds. Outpatient PCP follow-up. (6) Diabetes mellitus type 2 in obese Is this a current diagnosis for this admission?: Yes Plan: Controlled. A1c 5.9. Diabetic diet, sliding scale insulin, pre-meal insulin, long-acting insulin, hypoglycemia recall, Accu-Chek. Outpatient PCP follow-up. Has A1c of 5.9% and strict diabetic control has not shown to decrease morbidity and mortality and diabetic people with CAD. Her insulin dosage needs to be readjusted by her PCP with a target of A1c between 7-8. (7) Hx of coronary artery disease Is this a current diagnosis for this admission?: Yes Plan: Denies any anginal symptoms. Continue antiplatelets, JOSE, beta-blockers, statins. (8) CKD (chronic kidney disease), stage IV Is this a current diagnosis for this admission?: Yes Plan: Likely due to uncontrolled hypertension and diabetes. Nonoliguric. Food Service Worker back to baseline. Does not need any acute renal replacement therapy as per patient's tobacco drummer. Outpatient nephrology follow-up. Monitor volume and electrolytes replace as needed.
[2019-04-30] MEDS: PATIROMER 8.4 GM SUSP PACKET PO SCH (22:48)
[2019-04-30] MEDS: ATORVASTATIN CALCIUM 20 MG TABLET PO SCH (22:49)
[2019-04-30 23:26] LABS: APPEARANCE,URINE CLEAR; BILIRUBIN,URINE NEGATIVE (NEGATIVE); COLOR,URINE YELLOW; GLUCOSE, URINE NEGATIVE (NEGATIVE); KETONES,URINE NEGATIVE (NEGATIVE); LEUKOCYTE ESTERASE,URINE TRACE (NEGATIVE); NITRITE,URINE NEGATIVE (NEGATIVE); PROTEIN,URINE NEGATIVE (NEGATIVE); UROBILINOGEN,URINE NEGATIVE mg/dL (<2.0)
[2019-05-01 05:12] LABS: ABSOLUTE EOSINOPHILS # (AUTO) 0.2 10^3/uL (0.0-0.6); ABSOLUTE LYMPHOCYTES (AUTO) 1.1 10^3/uL (0.5-4.7); ABSOLUTE MONOCYTES (AUTO) 0.3 10^3/uL (0.1-1.4); ABSOLUTE NEUT (AUTO) 1.5 10^3/uL (1.7-8.2); BASOPHILS % (AUTO) 0.7 % (0-2); EOSINOPHILS % (AUTO) 6.6 % (0-6); HEMOGLOBIN 8.2 g/dL (12.0-15.5); LYMPHOCYTES % (AUTO) 35.2 % (13-45); MEAN CORPUSCULAR HEMOGLOBIN 29.8 pg (27.0-33.4); MEAN CORPUSCULAR HGB CONC 32.8 g/dL (32.0-36.0); MEAN CORPUSCULAR VOLUME 91 fl (80-97); MONOCYTES % (AUTO) 8.1 % (3-13); RED BLOOD COUNT 2.75 10^6/uL (3.72-5.28); SEGMENTED NEUTROPHILS % (AUTO) 49.4 % (42-78); TOTAL CELLS COUNTED % (AUTO) 100 %; WHITE BLOOD COUNT 3.1 10^3/uL (4.0-10.5)
[2019-05-01] MEDS: HEPARIN SOD (PORCINE) 5,000 UNIT/ML 1 ML SYRINGE SUBCUT SCH ×3 (05:21→21:29)
[2019-05-01 05:23] LABS: ANION GAP 6 (5-19); BLOOD UREA NITROGEN 33 mg/dL (7-20); CALCIUM 8.4 mg/dL (8.4-10.2); CARBON DIOXIDE 25 mmol/L (22-30); CHLORIDE 106 mmol/L (98-107); GLUCOSE 142 mg/dL (75-110); PHOSPHORUS 4.5 mg/dL (2.5-4.5); POTASSIUM 5.2 mmol/L (3.6-5.0); SODIUM 137.3 mmol/L (137-145)
[2019-05-01] MEDS: PANTOPRAZOLE SODIUM 20 MG TABLET.DR PO SCH (05:27)
[2019-05-01 06:25] LABS: PLATELET COUNT 98 10^3/uL (150-450)
[2019-05-01] MEDS: INSULIN LISPRO 100 UNIT/ML 3 ML VIAL SUBCUT SCH ×3 (07:51→16:47)
[2019-05-01] MEDS: IPRATROPIUM/ALBUTEROL 0.5-2.5 MG/3 ML AMPUL NEB SCH ×2 (08:20→19:29)
[2019-05-01] MEDS: LACTULOSE SYRUP 20 GM/30 ML UDCUP PO SCH ×2 (10:16→18:16)
[2019-05-01] MEDS: ATENOLOL 50 MG TABLET PO SCH (10:17)
[2019-05-01] MEDS: FUROSEMIDE INJ/PF 40 MG/4 ML SDV IV SCH ×2 (10:17→18:16)
[2019-05-01] MEDS: GABAPENTIN 300 MG CAPSULE PO SCH ×3 (10:17→18:16)
[2019-05-01] MEDS: ASPIRIN 81 MG TABLET, ENT COATED PO SCH (10:17)
[2019-05-01] MEDS: DOXAZOSIN MESYLATE 2 MG TABLET PO SCH (10:18)
[2019-05-01] MEDS: OXYCODONE-ACETAMINOPHEN 5-325 MG TABLET PO PRN (10:29)
--- NOTE | 2019-05-01 15:16 | PDOC PROGRESS REPORT ---
Subjective Progress Note for:: 05/01/19 Subjective:: Patient appears to be doing well. When I saw her she was lying in bed comfortably without any shortness of breathing. She is making urine but it is not all quantified according to the patient. She does not have any other new complaints. Reason For Visit: CKD,HYPERKALEMIA Physical Exam Vital Signs: Temp Pulse Resp BP Pulse Ox 97.8 F 50 L 16 155/42 H 94 05/01/19 07:12 05/01/19 08:22 05/01/19 08:22 05/01/19 07:12 05/01/19 08:22 Intake & Output 04/30/19 05/01/19 05/02/19 06:59 06:59 06:59 Intake Total 1773 Output Total 2300 900 Balance -2300 873 Weight 88.5 kg 86.4 kg Exam: General appearance: PRESENT: no acute distress, cooperative, well-developed, well-nourished Head exam: PRESENT: atraumatic, normocephalic Eye exam: PRESENT: conjunctiva pale, PERRLA. ABSENT: scleral icterus Neck exam: ABSENT: JVD Respiratory exam: PRESENT: Diminished breath sounds. ABSENT: crackles, rales, rhonchi, unlabored, wheezes Cardiovascular exam: PRESENT: Regular rate rhythm -+S1, +S2. Grade 2/6 systolic murmur GI/Abdominal exam: PRESENT: normal bowel sounds, soft. ABSENT: guarding, mass, tenderness Extremities exam: Grade 1 bilateral lower extremity pitting edema Neurological exam: PRESENT: alert, awake, oriented to person, place and time. Skin exam: PRESENT: dry, warm, positive pallor Results Laboratory Results: 05/01/19 03:52 05/01/19 03:52 04/30/19 05/01/19 05/01/19 22:55 03:52 03:52 WBC 3.1 L RBC 2.75 L Hgb 8.2 L Hct 25.0 L MCV 91 MCH 29.8 MCHC 32.8 RDW 16.0 H Plt Count 98 L Seg Neutrophils % 49.4 Lymphocytes % 35.2 Monocytes % 8.1 Eosinophils % 6.6 H Basophils % 0.7 Absolute Neutrophils 1.5 L Absolute Lymphocytes 1.1 Absolute Monocytes 0.3 Absolute Eosinophils 0.2 Absolute Basophils 0.0 Sodium 137.3 Potassium 5.2 H Chloride 106 Carbon Dioxide 25 Anion Gap 6 BUN 33 H Creatinine 2.17 H Est GFR ( Amer) 27 L Est GFR (Non-Af Amer) 22 L Glucose 142 H Calcium 8.4 Phosphorus 4.5 Magnesium 2.0 PTH Intact Urine Color YELLOW Urine Appearance CLEAR Urine pH 5.0 Ur Specific [place] 1.010 Urine Protein NEGATIVE Urine Glucose (UA) NEGATIVE Urine Ketones NEGATIVE Urine Blood NEGATIVE Urine Nitrite NEGATIVE Ur Leukocyte Esterase TRACE H Urine WBC (Auto) 3 Urine RBC (Auto) 0 05/01/19 03:52 WBC RBC Hgb Hct MCV MCH MCHC RDW Plt Count Seg Neutrophils % Lymphocytes % Monocytes % Eosinophils % Basophils % Absolute Neutrophils Absolute Lymphocytes Absolute Monocytes Absolute Eosinophils Absolute Basophils Sodium Potassium Chloride Carbon Dioxide Anion Gap BUN Creatinine Est GFR ( Amer) Est GFR (Non-Af Amer) Glucose Calcium Phosphorus Magnesium PTH Intact 160.0 H Urine Color Urine Appearance Urine pH Ur Specific [place] Urine Protein Urine Glucose (UA) Urine Ketones Urine Blood Urine Nitrite Ur Leukocyte Esterase Urine WBC (Auto) Urine RBC (Auto) 04/29/19 04/29/19 20:05 20:05 Creatine Kinase 99 CK-MB (CK-2) 1.85 Troponin I < 0.012 NT-Pro-B Natriuret Pep 5820 H Impressions: Chest X-Ray 04/29/19 18:43 IMPRESSION: CARDIAC ENLARGEMENT. VASCULAR CONGESTION. Assessment & Plan - Diagnosis (1) CKD (chronic kidney disease), stage IV Is this a current diagnosis for this admission?: Yes Plan: Kidney function is so far been stable and at baseline. (2) Hyperkalemia Is this a current diagnosis for this admission?: Yes Plan: Patient needs to go home with Veltassa 8.4 g daily. I encourage patient to take the medication consistently and also instructed her how to take it by itself and it should be 3 hours before and after any other medication. Continue low potassium diet. (3) Acute on chronic diastolic (congestive) heart failure Is this a current diagnosis for this admission?: Yes Plan: Increase Lasix to 40 mg p.o. twice daily upon discharge. (4) Anemia in chronic kidney disease (CKD) Is this a current diagnosis for this admission?: Yes Plan: Patient will continue to receive Procrit in our office. Instructed her to come to the office next week for her next shot. (5) Hypertension Is this a current diagnosis for this admission?: Yes Plan: Controlled. (6) Vitamin D deficiency Is this a current diagnosis for this admission?: Yes Plan: Advised patient to start vitamin D3 5000 units daily upon discharge. (7) Secondary hyperparathyroidism (of renal origin) Is this a current diagnosis for this admission?: Yes Plan: Correct vitamin D deficiency. (8) CAD (coronary artery disease) Is this a current diagnosis for this admission?: Yes Plan: The patient with her at bedside asked me again about cardiac catheterization. We had this discussion few times for the last 2 to 3 months and I told them that there is always going to be a risk for the kidney function deteriorating to the point of her requiring dialysis with cardiac catheterization due to the contrast. However as I always told him in the past I told him that if there occurred before rfid engineer deemed that it is really necessary to prevent this episodes of congestive heart failure and hospitalization then they may just be the risk . (9) Diabetes mellitus type 2 in obese Is this a current diagnosis for this admission?: Yes - Notes Notes: Discussed with Dr. Sweeney who is planning to discharge the patient home today. - Time Time with patient: 15-25 minutes
[2019-05-01 15:23] LABS: ANION GAP 11 (5-19); BLOOD UREA NITROGEN 35 mg/dL (7-20); CALCIUM 7.9 mg/dL (8.4-10.2); CARBON DIOXIDE 22 mmol/L (22-30); CHLORIDE 104 mmol/L (98-107); GLUCOSE 140 mg/dL (75-110); POTASSIUM 5.3 mmol/L (3.6-5.0); SODIUM 137.4 mmol/L (137-145)
--- NOTE | 2019-05-01 15:49 | PDOC PROGRESS REPORT ---
Subjective Progress Note for:: 05/01/19 Subjective:: PRECIOUS BURCH is a 73 year old female with a past medical history of oxygen dependent COPD, nonoliguric stage IV chronic kidney disease, anemia of CKD, morbid obesity coronary artery disease status post coronary artery bypass graft 2001 with subsequent stent placed 2002, moderate diastolic heart failure diabetes hypertension and recurrent presentation for critical hyperkalemia. Patient presents with uncontrolled hypertension in the 196 systolic, shortness of breath and hyperkalemia of 6.4 with intraventricular conduction delay. She started on calcium, dextrose, insulin and Kayexalate. Patient admits to noncompliance with daily Kayexalate, understanding the need for daily bowel movements but stating she prefers to have a bowel movement every other day. Patient expresses interest in hemodialysis 05/01/2019. No acute events overnight. Patient had 2 bowel movements in the last 24 hours, potassium is still elevated. Denies any fever, chills, nausea, v omiting, diarrhea. Reason For Visit: HYPERKALEMIA Physical Exam Vital Signs: Temp Pulse Resp BP Pulse Ox 98.0 F 57 L 18 122/39 L 97 05/01/19 11:00 05/01/19 11:00 05/01/19 11:00 05/01/19 11:00 05/01/19 11:00 Intake & Output 04/30/19 05/01/19 05/02/19 06:59 06:59 06:59 Intake Total 1773 500 Output Total 2300 900 300 Balance -2300 873 200 Weight 88.5 kg 86.4 kg General appearance: PRESENT: morbidly obese Respiratory exam: PRESENT: clear to auscultation cheli. ABSENT: rales, rhonchi, wheezes Cardiovascular exam: PRESENT: RRR. ABSENT: diastolic murmur, rubs, systolic murmur GI/Abdominal exam: PRESENT: normal bowel sounds, soft. ABSENT: distended, guarding, mass, organolmegaly, rebound, tenderness Neurological exam: PRESENT: alert, awake, oriented to person, oriented to place, oriented to time, oriented to situation, CN II-XII grossly intact. ABSENT: motor sensory deficit Results Laboratory Results: 05/01/19 03:52 05/01/19 14:23 04/30/19 05/01/19 05/01/19 22:55 03:52 03:52 WBC 3.1 L RBC 2.75 L Hgb 8.2 L Hct 25.0 L MCV 91 MCH 29.8 MCHC 32.8 RDW 16.0 H Plt Count 98 L Seg Neutrophils % 49.4 Lymphocytes % 35.2 Monocytes % 8.1 Eosinophils % 6.6 H Basophils % 0.7 Absolute Neutrophils 1.5 L Absolute Lymphocytes 1.1 Absolute Monocytes 0.3 Absolute Eosinophils 0.2 Absolute Basophils 0.0 Sodium 137.3 Potassium 5.2 H Chloride 106 Carbon Dioxide 25 Anion Gap 6 BUN 33 H Creatinine 2.17 H Est GFR ( Amer) 27 L Est GFR (Non-Af Amer) 22 L Glucose 142 H Calcium 8.4 Phosphorus 4.5 Magnesium 2.0 PTH Intact Urine Color YELLOW Urine Appearance CLEAR Urine pH 5.0 Ur Specific [place] 1.010 Urine Protein NEGATIVE Urine Glucose (UA) NEGATIVE Urine Ketones NEGATIVE Urine Blood NEGATIVE Urine Nitrite NEGATIVE Ur Leukocyte Esterase TRACE H Urine WBC (Auto) 3 Urine RBC (Auto) 0 05/01/19 05/01/19 05/01/19 03:52 14:23 14:23 WBC RBC Hgb Hct MCV MCH MCHC RDW Plt Count Seg Neutrophils % Lymphocytes % Monocytes % Eosinophils % Basophils % Absolute Neutrophils Absolute Lymphocytes Absolute Monocytes Absolute Eosinophils Absolute Basophils Sodium 137.4 Potassium 5.3 H 5.3 H Chloride 104 Carbon Dioxide 22 Anion Gap 11 BUN 35 H Creatinine 1.89 H Est GFR ( Amer) 32 L Est GFR (Non-Af Amer) 26 L Glucose 140 H Calcium 7.9 L Phosphorus Magnesium PTH Intact 160.0 H Urine Color Urine Appearance Urine pH Ur Specific [place] Urine Protein Urine Glucose (UA) Urine Ketones Urine Blood Urine Nitrite Ur Leukocyte Esterase Urine WBC (Auto) Urine RBC (Auto) 04/29/19 04/29/19 20:05 20:05 Creatine Kinase 99 CK-MB (CK-2) 1.85 Troponin I < 0.012 NT-Pro-B Natriuret Pep 5820 H Impressions: Chest X-Ray 04/29/19 18:43 IMPRESSION: CARDIAC ENLARGEMENT. VASCULAR CONGESTION. Assessment and Plan - Diagnosis (1) Hyperkalemia Is this a current diagnosis for this admission?: Yes Plan: Improving. Potassium 5.4 today. Initially patient presented with bradycardia. Received calcium gluconate, started on Kayexalate and admitted to telemetry. Hyperkalemia could be likely due to noncompliance. Stating that she has not been taking Veltassa because it was not working. Continue Veltassa, hyperkalemia protocol, telemetry. (2) Hypertensive urgency Is this a current diagnosis for this admission?: Yes Plan: Improving. SBP 140s. Continue beta-blockers, Lasix, IV hydralazine PRN. SBP of 180s to 90s on admission. No anginal pain on admission. Troponins negative. Patient has CKD which was at baseline on presentation. (3) Constipation Is this a current diagnosis for this admission?: Yes Plan: Kayexalate, lactulose and Fleet enema (4) Diastolic heart failure Is this a current diagnosis for this admission?: Yes Plan: Does not seem to be exacerbated. Continue cardiac diet, monitor volume status, IV Lasix. Beta-blockers, JOSE. (5) Depression Is this a current diagnosis for this admission?: Yes Plan: Denies any suicidal or homicidal ideation. Restart home meds. Outpatient PCP follow-up. (6) Diabetes mellitus type 2 in obese Is this a current diagnosis for this admission?: Yes Plan: Controlled. A1c 5.9. Diabetic diet, sliding scale insulin, pre-meal insulin, long-acting insulin, hypoglycemia recall, Accu-Chek. Outpatient PCP follow-up. Has A1c of 5.9% and strict diabetic control has not shown to decrease morbidity and mortality and diabetic people with CAD. Her insulin dosage needs to be readjusted by her PCP with a target of A1c between 7-8. (7) Hx of coronary artery disease Is this a current diagnosis for this admission?: Yes Plan: Denies any anginal symptoms. Continue antiplatelets, JOSE, beta-blockers, statins. (8) CKD (chronic kidney disease), stage IV Is this a current diagnosis for this admission?: Yes Plan: Likely due to uncontrolled hypertension and diabetes. Nonoliguric. Body Straightener back to baseline. Does not need any acute renal replacement therapy as per patient's otolaryngology surgeon. Outpatient nephrology follow-up. Monitor volume and electrolytes replace as needed.
[2019-05-01] MEDS: PATIROMER 8.4 GM SUSP PACKET PO SCH (21:33)
[2019-05-01] MEDS: ATORVASTATIN CALCIUM 20 MG TABLET PO SCH (21:33)
[2019-05-02] MEDS: OXYCODONE-ACETAMINOPHEN 5-325 MG TABLET PO PRN ×2 (01:06→11:50)
[2019-05-02] MEDS: HEPARIN SOD (PORCINE) 5,000 UNIT/ML 1 ML SYRINGE SUBCUT SCH ×3 (05:50→21:28)
[2019-05-02] MEDS: FUROSEMIDE INJ/PF 40 MG/4 ML SDV IV SCH ×2 (06:21→17:11)
[2019-05-02] MEDS: PANTOPRAZOLE SODIUM 20 MG TABLET.DR PO SCH (06:21)
[2019-05-02] MEDS: INSULIN LISPRO 100 UNIT/ML 3 ML VIAL SUBCUT SCH ×3 (08:00→16:50)
[2019-05-02] MEDS: IPRATROPIUM/ALBUTEROL 0.5-2.5 MG/3 ML AMPUL NEB SCH ×2 (08:25→20:52)
[2019-05-02 09:10] LABS: ANION GAP 6 (5-19); BLOOD UREA NITROGEN 36 mg/dL (7-20); CALCIUM 8.7 mg/dL (8.4-10.2); CARBON DIOXIDE 28 mmol/L (22-30); CHLORIDE 103 mmol/L (98-107); GLUCOSE 139 mg/dL (75-110); POTASSIUM 5.1 mmol/L (3.6-5.0); SODIUM 136.9 mmol/L (137-145)
[2019-05-02] MEDS: DOXAZOSIN MESYLATE 2 MG TABLET PO SCH (09:53)
[2019-05-02] MEDS: ASPIRIN 81 MG TABLET, ENT COATED PO SCH (09:53)
[2019-05-02] MEDS: LACTULOSE SYRUP 20 GM/30 ML UDCUP PO SCH ×2 (09:53→17:11)
[2019-05-02] MEDS: ATENOLOL 50 MG TABLET PO SCH (09:53)
[2019-05-02] MEDS: GABAPENTIN 300 MG CAPSULE PO SCH ×3 (09:53→17:11)
--- NOTE | 2019-05-02 12:10 | EKG REPORT ---
SEVERITY:- ABNORMAL ECG - SINUS RHYTHM PROBABLE INFERIOR INFARCT, AGE INDETERMINATE PROLONGED QT INTERVAL : Confirmed by: Glenys Quesada MD 02-May-2019 12:09:20
[2019-05-02] MEDS ORDERED: SODIUM POLYSTYRENE SULFONATE 15 GM/60 ML PO ONE (16:44)
[2019-05-02] MEDS: PATIROMER 8.4 GM SUSP PACKET PO SCH (21:35)
[2019-05-03] MEDS: OXYCODONE-ACETAMINOPHEN 5-325 MG TABLET PO PRN (00:18)
[2019-05-03] MEDS: ATORVASTATIN CALCIUM 20 MG TABLET PO SCH (00:19)
[2019-05-03] MEDS: HEPARIN SOD (PORCINE) 5,000 UNIT/ML 1 ML SYRINGE SUBCUT SCH (05:08)
[2019-05-03] MEDS: FUROSEMIDE INJ/PF 40 MG/4 ML SDV IV SCH (05:12)
[2019-05-03] MEDS: PANTOPRAZOLE SODIUM 20 MG TABLET.DR PO SCH (05:12)
[2019-05-03] MEDS: IPRATROPIUM/ALBUTEROL 0.5-2.5 MG/3 ML AMPUL NEB SCH (08:21)
[2019-05-03] MEDS: INSULIN LISPRO 100 UNIT/ML 3 ML VIAL SUBCUT SCH (08:58)
[2019-05-03] MEDS: LACTULOSE SYRUP 20 GM/30 ML UDCUP PO SCH (09:01)
[2019-05-03] MEDS: ATENOLOL 50 MG TABLET PO SCH (09:01)
[2019-05-03] MEDS: GABAPENTIN 300 MG CAPSULE PO SCH (09:01)
[2019-05-03] MEDS: ASPIRIN 81 MG TABLET, ENT COATED PO SCH (09:01)
[2019-05-03] MEDS: DOXAZOSIN MESYLATE 2 MG TABLET PO SCH (09:03)
[2019-05-03 10:38] VITALS: BP 149/43
--- NOTE | 2019-05-06 18:04 | PDOC DISCHARGE SUMMARY ---
General - Admit/Disc Date/PCP Admission Date/Primary Care Provider: 04/29/19 22:18 DANI PANDA, Discharge Date: 05/03/19 - Discharge Diagnosis (1) Hyperkalemia Is this a current diagnosis for this admission?: Yes (2) Hypertensive urgency Is this a current diagnosis for this admission?: Yes (3) Constipation Is this a current diagnosis for this admission?: Yes (4) Diastolic heart failure Is this a current diagnosis for this admission?: Yes (5) Depression Is this a current diagnosis for this admission?: Yes (6) Diabetes mellitus type 2 in obese Is this a current diagnosis for this admission?: Yes (7) Hx of coronary artery disease Is this a current diagnosis for this admission?: Yes (8) CKD (chronic kidney disease), stage IV Is this a current diagnosis for this admission?: Yes - Additional Information Resuscitation Status: Do Not Intubate Discharge Diet: Cardiac, Diabetic, Other (Comments) Discharge Activity: Activity As Tolerated, Balance Activity w/Rest, Weigh Daily Prescriptions: Patiromer Calcium Sorbitex [Veltassa] 16.8 gm PO WSUPPER 15 Days #15 powd.pack Sodium Polystyrene Sulfonate [Kayexalate 15 Gm/60 Ml Susp 60 Ml] 15 gm PO BID 15 Days #30 bottle Home Medications: Aspirin [Adult Low Dose Aspirin EC] 81 mg PO DAILY 04/29/19 Ezetimibe [Zetia 10 mg Tablet] 10 mg PO DAILY 04/29/19 Gabapentin [Neurontin 300 mg Capsule] 600 mg PO Q12 04/29/19 Amlodipine Besylate [Norvasc 5 mg Tablet] 5 mg PO DAILY 04/30/19 Clopidogrel Bisulfate [Plavix 75 mg Tablet] 75 mg PO DAILY 04/30/19 Fenofibrate 160 mg PO DAILY 04/30/19 Furosemide [Lasix 20 mg Tablet] 20 mg PO DAILY 04/30/19 Insulin Glargine,Hum.rec.anlog [Lantus Insulin 100 Unit/1 ml 10 ml] 18 unit SQ QHS 04/30/19 Isosorbide Mononitrate [Imdur 60 mg Tablet.er] 60 mg PO DAILY 04/30/19 Linaclotide [Linzess] 72 mcg PO ACBRKFST 04/30/19 Loratadine [Claritin 10 mg Tablet] 10 mg PO DAILY 04/30/19 Metoprolol Succinate [Toprol Xl 25 mg Tab.sr] 25 mg PO DAILY 04/30/19 Montelukast Sodium [Singulair 10 mg Tablet] 10 mg PO QHS 04/30/19 Omeprazole 40 mg PO BID 04/30/19 Oxycodone HCl/Acetaminophen [Percocet 5-325 mg Tablet] 1 tab PO Q6HP PRN 04/30/19 Rosuvastatin Calcium [Crestor] 40 mg PO QHS 04/30/19 Sitagliptin Phosphate [Januvia] 100 mg PO DAILY 04/30/19 Telmisartan [Micardis 20 mg Tablet] 20 mg PO DAILY 04/30/19 Patiromer Calcium Sorbitex [Veltassa] 16.8 gm PO WSUPPER 15 Days #15 powd.pack 05/03/19 Sodium Polystyrene Sulfonate [Kayexalate 15 Gm/60 Ml Susp 60 Ml] 15 gm PO BID 15 Days #30 bottle 05/03/19 History of Present Illness History of Present Illness: PRECIOUS BURCH is a 73 year old female Hospital Course Hospital Course: - Diagnosis (1) Hyperkalemia Resolved. Potassium 4.7. Initially patient presented with bradycardia. Received calcium gluconate, started on Kayexalate and admitted to telemetry. Hyperkalemia could be likely due to noncompliance. Stating that she has not been taking Veltassa because it was not working. Initially was started on Veltassa with no good results. Was given 1 dose of Kayexalate with excellent results. Following day patient potassium was 4.7. She was given prescription for both Kayexalate and Veltassa. She was asked to preferably start Kayexalate but for some reason if she could not get hold of Kayexalate due to nationwide low supply she could continue with Veltassa. She was advised on low potassium diet. (2) Hypertensive urgency Resolved. SBP 140s. Continued on beta-blockers, Lasix, IV hydralazine PRN. SBP of 180s to 90s on admission. No anginal pain on admission. Troponins negative. Patient has CKD which was at baseline on presentation. (3) Constipation Kayexalate, lactulose and Fleet enema (4) Diastolic heart failure Does not seem to be exacerbated. Continue cardiac diet, monitor volume status, IV Lasix. Beta-blockers, JOSE. (5) Depression Denies any suicidal or homicidal ideation. Restart home meds. Outpatient PCP follow-up. (6) Diabetes mellitus type 2 in obese Controlled. A1c 5.9. Diabetic diet, sliding scale insulin, pre-meal insulin, long-acting insulin, hypoglycemia recall, Accu-Chek. Outpatient PCP follow-up. Has A1c of 5.9% and strict diabetic control has not shown to decrease morbidity and mortality and diabetic people with CAD. Her insulin dosage needs to be readjusted by her PCP with a target of A1c b etween 7-8. Patient was asked to follow-up with PCP for readjustment of her insulin dosage. (7) Hx of coronary artery disease Denies any anginal symptoms. Continue antiplatelets, JOSE, beta-blockers, statins. (8) CKD (chronic kidney disease), stage IV Likely due to uncontrolled hypertension and diabetes. Nonoliguric. Angle Bender back to baseline. Does not need any acute renal replacement therapy as per patient's news camera person. Outpatient nephrology follow-up. Physical Exam Vital Signs: Temp Pulse Resp BP Pulse Ox 97.7 F 57 L 16 149/43 H 97 05/03/19 10:49 05/03/19 10:49 05/03/19 10:49 05/03/19 07:15 05/03/19 10:49 General appearance: PRESENT: obese Head exam: PRESENT: atraumatic, normocephalic Neck exam: ABSENT: carotid bruit, JVD, lymphadenopathy, thyromegaly Cardiovascular exam: PRESENT: RRR. ABSENT: diastolic murmur, rubs, systolic murmur GI/Abdominal exam: PRESENT: normal bowel sounds, soft. ABSENT: distended, guarding, mass, organolmegaly, rebound, tenderness Extremities exam: PRESENT: full ROM. ABSENT: calf tenderness, clubbing, pedal edema Neurological exam: PRESENT: alert, awake, oriented to person, oriented to place, oriented to time, oriented to situation, CN II-XII grossly intact. ABSENT: motor sensory deficit Results Laboratory Results: 05/01/19 03:52 05/03/19 07:40 04/29/19 04/29/19 20:05 20:05 Creatine Kinase 99 CK-MB (CK-2) 1.85 Troponin I < 0.012 NT-Pro-B Natriuret Pep 5820 H Impressions: Chest X-Ray 04/29/19 18:43 IMPRESSION: CARDIAC ENLARGEMENT. VASCULAR CONGESTION. Qualifiers - * PATIENT BEING DISCHARGED WITH ANY OF THE FOLLOWING DIAGNOSIS: No Acute Heart Failure - Is this a Heart Failure Patient?: Yes Documentation of LVEF assessment?: Yes LVEF < 40%?: Yes-if yes answer questions a through e a) Discharged on ACEI?: Yes b) Discharges on ARB?: Yes c) Discharged on ARNI?: No-Document Contraindications d) Discharged on evidence-based Beta matti(carvedilol, sustained release metoprolol succinate, or bisoprolol)?: Yes e) For LVEF <35%, discharged on Aldosterone antagonist?: Yes
== END 2019-05-03 11:12 | disposition home or self-care (01) ==
LOC: ER 16:53 → INTOOBSV 22:18 → EH 22:18 → 3N 23:25
PROVIDERS: ADMIT Internal Medicine; ATTEND Internal Medicine
DX: E87.5 Hyperkalemia (principal); I16.0 Hypertensive urgency; I13.0 Hypertensive heart and chronic kidney disease with heart failure and stage 1 through stage 4 chronic kidney disease, or unspecified chronic kidney disease; E11.22 Type 2 diabetes mellitus with diabetic chronic kidney disease; N18.4 Chronic kidney disease, stage 4 (severe); I50.33 Acute on chronic diastolic (congestive) heart failure; D63.1 Anemia in chronic kidney disease; K59.00 Constipation, unspecified; I25.10 Atherosclerotic heart disease of native coronary artery without angina pectoris; Z66 Do not resuscitate; Z79.82 Long term (current) use of aspirin; Z79.899 Other long term (current) drug therapy; J44.9 Chronic obstructive pulmonary disease, unspecified; M19.90 Unspecified osteoarthritis, unspecified site; Z90.49 Acquired absence of other specified parts of digestive tract; Z95.5 Presence of coronary angioplasty implant and graft; Z90.710 Acquired absence of both cervix and uterus; Z79.02 Long term (current) use of antithrombotics/antiplatelets; Z99.81 Dependence on supplemental oxygen
CPT/HCPCS: 93005 ×2; 99291; 36415 ×5; 82553; 82962 ×5; 82550; 83735; 84100; 84132 ×3; 85025 ×3; 80048 ×3; 80053; 81001; 84484; 82306; 83970; 83880; 71045; 93010 ×2; 94640 ×4; G0378 ×4; A9270 ×35; J0610 ×2; J1644 ×2; J3490 ×8; J1940 ×5; Q4081; J7060; J7030; J1815; J7620

== ENCOUNTER → 2019-05-05 | Outpatient (CLI) | payer MEDICARE, MEDICAID ==
[2019-05-05 13:13] LABS: ANION GAP 8 (5-19); BLOOD UREA NITROGEN 45 mg/dL (7-20); CALCIUM 8.5 mg/dL (8.4-10.2); CARBON DIOXIDE 25 mmol/L (22-30); CHLORIDE 104 mmol/L (98-107); GLUCOSE 93 mg/dL (75-110); POTASSIUM 3.9 mmol/L (3.6-5.0); SODIUM 137.2 mmol/L (137-145)
== END ==
LOC: OD 12:10
PROVIDERS: ATTEND Family Medicine
DX: E87.5 Hyperkalemia (principal); I50.9 Heart failure, unspecified
CPT/HCPCS: 36415; 80048

== ENCOUNTER → 2019-05-07 | Outpatient (CLI) | payer MEDICARE, MEDICAID ==
[2019-05-07 11:44] LABS: ABSOLUTE EOSINOPHILS # (AUTO) 0.3 10^3/uL (0.0-0.6); ABSOLUTE LYMPHOCYTES (AUTO) 1.3 10^3/uL (0.5-4.7); ABSOLUTE MONOCYTES (AUTO) 0.3 10^3/uL (0.1-1.4); ABSOLUTE NEUT (AUTO) 3.2 10^3/uL (1.7-8.2); BASOPHILS % (AUTO) 0.6 % (0-2); EOSINOPHILS % (AUTO) 6.2 % (0-6); HEMATOCRIT 28.8 % (36.0-47.0); HEMOGLOBIN 9.5 g/dL (12.0-15.5); LYMPHOCYTES % (AUTO) 25.3 % (13-45); MEAN CORPUSCULAR HEMOGLOBIN 29.9 pg (27.0-33.4); MEAN CORPUSCULAR HGB CONC 32.9 g/dL (32.0-36.0); MEAN CORPUSCULAR VOLUME 91 fl (80-97); MONOCYTES % (AUTO) 6.7 % (3-13); PLATELET COUNT 141 10^3/uL (150-450); RED BLOOD COUNT 3.18 10^6/uL (3.72-5.28); RED CELL DISTRIBUTION WIDTH 16.6 % (11.5-14.0); SEGMENTED NEUTROPHILS % (AUTO) 61.2 % (42-78); TOTAL CELLS COUNTED % (AUTO) 100 %; WHITE BLOOD COUNT 5.2 10^3/uL (4.0-10.5)
[2019-05-07 11:48] LABS: INTERNATIONAL RATION (INR) 1.11; PROTHROMBIN TIME 14.4 SEC (11.4-15.4)
[2019-05-07 11:49] LABS: PARTIAL THROMBOPLASTIN TIME 29.2 SEC (23.5-35.8)
[2019-05-07 12:11] LABS: ANION GAP 8 (5-19); BLOOD UREA NITROGEN 38 mg/dL (7-20); CARBON DIOXIDE 26 mmol/L (22-30); CHLORIDE 108 mmol/L (98-107); GLUCOSE 112 mg/dL (75-110); POTASSIUM 4.6 mmol/L (3.6-5.0); SODIUM 141.8 mmol/L (137-145)
[2019-05-07 12:53] LABS: IRON(TIBC) 55.2 ug/dL (37-170)
== END ==
LOC: OD 10:50
PROVIDERS: ATTEND Specialist
DX: D63.1 Anemia in chronic kidney disease (principal); E78.5 Hyperlipidemia, unspecified; I34.0 Nonrheumatic mitral (valve) insufficiency; R01.1 Cardiac murmur, unspecified; I25.10 Atherosclerotic heart disease of native coronary artery without angina pectoris; M15.9 Polyosteoarthritis, unspecified; E11.9 Type 2 diabetes mellitus without complications; E66.9 Obesity, unspecified; I66.9 Occlusion and stenosis of unspecified cerebral artery; R94.31 Abnormal electrocardiogram [ECG] [EKG]; R07.9 Chest pain, unspecified; J45.20 Mild intermittent asthma, uncomplicated; R94.30 Abnormal result of cardiovascular function study, unspecified; R06.09 Other forms of dyspnea; Z79.899 Other long term (current) drug therapy
CPT/HCPCS: 36415; 80051; 82565; 82728; 82947; 83540; 83550; 83735; 84520; 85025; 85610; 85730

== ENCOUNTER → 2019-06-17 | Outpatient (CLI) | payer MEDICARE, MEDICAID ==
[2019-06-17 11:38] LABS: ABSOLUTE EOSINOPHILS # (AUTO) 0.3 10^3/uL (0.0-0.6); ABSOLUTE LYMPHOCYTES (AUTO) 1.4 10^3/uL (0.5-4.7); ABSOLUTE MONOCYTES (AUTO) 0.4 10^3/uL (0.1-1.4); ABSOLUTE NEUT (AUTO) 4.9 10^3/uL (1.7-8.2); BASOPHILS % (AUTO) 0.5 % (0-2); EOSINOPHILS % (AUTO) 4.4 % (0-6); HEMATOCRIT 26.2 % (36.0-47.0); HEMOGLOBIN 8.7 g/dL (12.0-15.5); MEAN CORPUSCULAR HEMOGLOBIN 30.4 pg (27.0-33.4); MEAN CORPUSCULAR HGB CONC 33.3 g/dL (32.0-36.0); MEAN CORPUSCULAR VOLUME 91 fl (80-97); MONOCYTES % (AUTO) 5.1 % (3-13); PLATELET COUNT 116 10^3/uL (150-450); RED BLOOD COUNT 2.88 10^6/uL (3.72-5.28); RED CELL DISTRIBUTION WIDTH 16.3 % (11.5-14.0); TOTAL CELLS COUNTED % (AUTO) 100 %; WHITE BLOOD COUNT 7.1 10^3/uL (4.0-10.5)
[2019-06-17 11:57] LABS: IRON(TIBC) 36.3 ug/dL (37-170)
== END ==
LOC: OD 10:34
PROVIDERS: ATTEND Physician Assistant Medical
DX: N18.3 Chronic kidney disease, stage 3 (moderate) (principal); D63.1 Anemia in chronic kidney disease
CPT/HCPCS: 36415; 82728; 83540; 83550; 84466; 85025

== ENCOUNTER 2019-06-19 05:09 | Outpatient (CLI) | payer MEDICARE, MEDICAID ==
[2019-06-19 10:28] VITALS: BP 138/44
[2019-06-19] MEDS ORDERED: FERRIC CARBOXYMALTOSE 750 MG in NORMAL SALINE 250 ML IV PRN (10:36)
== END 2019-06-19 11:46 | disposition home or self-care (01) ==
LOC: II 05:09 → 5TH 10:26 → II 11:46
PROVIDERS: ATTEND Internal Medicine Nephrology
PROC: 3E033GC Introduction of Other Therapeutic Substance into Peripheral Vein, Percutaneous Approach (ICD-10-PCS; principal; 2019-06-19)
DX: D50.8 Other iron deficiency anemias (principal); N18.4 Chronic kidney disease, stage 4 (severe)
CPT/HCPCS: 96366; J7050; J1439; 96365

== ENCOUNTER → 2019-07-06 | Outpatient (CLI) | payer MEDICARE, MEDICAID ==
[2019-07-06 12:52] LABS: ABSOLUTE BASOPHILS # (AUTO) 0.1 10^3/uL (0.0-0.2); ABSOLUTE EOSINOPHILS # (AUTO) 0.3 10^3/uL (0.0-0.6); ABSOLUTE LYMPHOCYTES (AUTO) 1.2 10^3/uL (0.5-4.7); ABSOLUTE MONOCYTES (AUTO) 0.4 10^3/uL (0.1-1.4); ABSOLUTE NEUT (AUTO) 3.2 10^3/uL (1.7-8.2); BASOPHILS % (AUTO) 1.1 % (0-2); EOSINOPHILS % (AUTO) 5.5 % (0-6); HEMATOCRIT 27.9 % (36.0-47.0); HEMOGLOBIN 9.2 g/dL (12.0-15.5); LYMPHOCYTES % (AUTO) 23.1 % (13-45); MEAN CORPUSCULAR HEMOGLOBIN 30.7 pg (27.0-33.4); MEAN CORPUSCULAR HGB CONC 33.1 g/dL (32.0-36.0); MEAN CORPUSCULAR VOLUME 93 fl (80-97); MONOCYTES % (AUTO) 7.5 % (3-13); PLATELET COUNT 128 10^3/uL (150-450); RED CELL DISTRIBUTION WIDTH 16.2 % (11.5-14.0); SEGMENTED NEUTROPHILS % (AUTO) 62.8 % (42-78); TOTAL CELLS COUNTED % (AUTO) 100 %
[2019-07-06 13:16] LABS: ALBUMIN 3.3 g/dL (3.5-5.0); ANION GAP 8 (5-19); BLOOD UREA NITROGEN 36 mg/dL (7-20); CALCIUM 8.3 mg/dL (8.4-10.2); CARBON DIOXIDE 28 mmol/L (22-30); CHLORIDE 100 mmol/L (98-107); GLUCOSE 94 mg/dL (75-110); IRON(TIBC) 71.7 ug/dL (37-170); PHOSPHORUS 4.4 mg/dL (2.5-4.5); POTASSIUM 5.3 mmol/L (3.6-5.0)
[2019-07-06 13:40] LABS: APPEARANCE,URINE CLOUDY; BILIRUBIN,URINE NEGATIVE (NEGATIVE); COLOR,URINE YELLOW; GLUCOSE, URINE NEGATIVE (NEGATIVE); KETONES,URINE NEGATIVE (NEGATIVE); LEUKOCYTE ESTERASE,URINE LARGE (NEGATIVE); NITRITE,URINE NEGATIVE (NEGATIVE); PROTEIN,URINE NEGATIVE (NEGATIVE); URINE SPECIFIC GRAVITY 1.006; UROBILINOGEN,URINE NEGATIVE mg/dL (<2.0)
== END ==
LOC: OD 12:22
PROVIDERS: ATTEND Internal Medicine Nephrology
DX: N39.0 Urinary tract infection, site not specified (principal); E11.22 Type 2 diabetes mellitus with diabetic chronic kidney disease; I12.9 Hypertensive chronic kidney disease with stage 1 through stage 4 chronic kidney disease, or unspecified chronic kidney disease; N18.4 Chronic kidney disease, stage 4 (severe); D63.1 Anemia in chronic kidney disease; E87.5 Hyperkalemia; D50.9 Iron deficiency anemia, unspecified
CPT/HCPCS: 36415; 80069; 81001; 82043; 82306; 82570; 82728; 83540; 83550; 83735; 83970; 85025

== ENCOUNTER → 2019-07-20 | Outpatient (CLI) | payer MEDICARE, MEDICAID ==
[2019-07-20 14:56] LABS: ANION GAP 8 (5-19); BLOOD UREA NITROGEN 45 mg/dL (7-20); CALCIUM 8.2 mg/dL (8.4-10.2); CARBON DIOXIDE 28 mmol/L (22-30); CHLORIDE 102 mmol/L (98-107); GLUCOSE 112 mg/dL (75-110); POTASSIUM 4.5 mmol/L (3.6-5.0)
== END ==
LOC: OD 13:48
PROVIDERS: ATTEND Internal Medicine Nephrology
DX: N18.4 Chronic kidney disease, stage 4 (severe) (principal)
CPT/HCPCS: 36415; 80048

== ENCOUNTER 2019-07-29 14:03 | Inpatient (IN) | payer MEDICARE, MEDICAID ==
--- NOTE | 2019-07-29 15:06 | ER Document Report ---
ED Medical Screen (RME) - General Chief Complaint: Shortness Of Breath Stated Complaint: SHORTNESS OF BREATH Time Seen by Provider: 07/29/19 14:58 Primary Care Provider: CARLOS LARSON MD [Primary Care Provider] - Follow up as needed TRAVEL OUTSIDE OF THE [place] IN LAST 30 DAYS: No - HPI Notes: 07/29/19 15:08 74-year-old female with history of COPD, CHF to the emergency department with complaints of progressively worsening shortness of breath and leg swelling for the past week. She states that she has not been able to sleep in her normal 2 pillows at night and has been requiring 3+ pillows. She states she also wakes up in the middle the night very short of breath. She is been taking her Lasix as prescribed but it has not been helping. She states that she recently had a heart cath 3 weeks ago and was told that the pressure in her heart was "up". She was started on amlodipine by Dr. Quesada since the heart cath. She denies any chest pain. She states that usually she can walk from her bedroom to her living room but as of late she can only walk about 10 feet without getting severely winded. She is on continuous oxygen therapy at 2.5 L continuously. She states that she did bump it up to 3 L but it did not seem to help so she went back down to 2.5. I performed a medical screening exam on the patient and determined that she will need further evaluation from Main side provider. I have placed order for Lasix as well as labs. Patient does have bilateral lower lung rales and 2+ pitting edema bilaterally to the legs. - Related Data Allergies/Adverse Reactions: amoxicillin trihydrate [From Augmentin] Allergy (Severe, Verified 04/29/19 17:21) stomach cramps, n and v, rash butalbital [From Fiorinal] Allergy (Unknown, Verified 04/29/19 17:21) rash metformin HCl [From Glucophage] Allergy (Unknown, Verified 04/29/19 17:21) rash Potassium Clavulanate * [From Augmentin] Adverse Reaction (Unknown, Verified 04/29/19 17:21) nausea, vomit, epig pain Past Medical History - Past Medical History Cardiac Medical History: Reports: Hx Congestive Heart Failure, Hx Coronary Artery Disease - CABG in 2001, Hx Heart Attack, Hx Hypercholesterolemia, Hx Hypertension Denies: Hx Atrial Fibrillation, Hx DVT, Hx Pulmonary Embolism Pulmonary Medical History: Reports: Hx Asthma, Hx Bronchitis, Hx COPD, Hx Pneumonia, Hx Respiratory Failure, Hx Sleep Apnea - no cpap insurance does not cover Denies: Hx Tuberculosis Neurological Medical History: Reports: Hx Cerebrovascular Accident - X4. Denies: Hx Seizures Endocrine Medical History: Reports: Hx Diabetes Mellitus Type 2. Denies: Hx Diabetes Mellitus Type 1, Hx Hyperthyroidism, Hx Hypothyroidism Renal/ Medical History: Reports: Hx End Stage Renal Disease, Hx Kidney Stones. Denies: Hx Peritoneal Dialysis GI Medical History: Reports: Hx Ulcer. Denies: Hx Cirrhosis, Hx Gastroesophageal Reflux Disease, Hx Hepatitis, Hx Pancreatitis Musculoskeltal Medical History: Reports Hx Arthritis, Denies Hx Gout, Denies Hx Multiple Sclerosis, Denies Hx Systemic Lupus Erythematosus Skin Medical History: Denies Hx Eczema, Denies Hx Psoriasis Psychiatric Medical History: Reports: Hx Depression Denies: Hx Bipolar Disorder, Hx Schizophrenia Infectious Medical History: Denies: Hx Hepatitis Past Surgical History: Reports: Hx Cardiac Catheterization, Hx Section, Hx Cholecystectomy, Hx Coronary Stent, Hx Gastric Bypass Surgery - 2001, Hx Gynecologic Surgery, Hx Hysterectomy, Hx Open Heart Surgery - 2001 TRIPLE BYPASS, Hx Rectal Surgery, Hx Tubal Ligation - Immunizations Hx Diphtheria, Pertussis, Tetanus Vaccination: No History of Influenza Vaccine for 08/2017 - 01/2018 Season: No Physical Exam - Vital signs Vitals: Temp Pulse Resp BP Pulse Ox 97.6 F 47 L 22 H 129/47 H 97 07/29/19 14:14 07/29/19 14:14 07/29/19 14:14 07/29/19 14:14 07/29/19 14:14 Course - Vital Signs Vital signs: Temp Pulse Resp BP Pulse Ox 97.6 F 47 L 22 H 129/47 H 97 07/29/19 14:14 07/29/19 14:14 07/29/19 14:14 07/29/19 14:14 07/29/19 14:14 Doctor's Discharge - Discharge Referrals: CARLOS LARSON MD [Primary Care Provider] - Follow up as needed
[2019-07-29] MEDS ORDERED: FUROSEMIDE INJ/PF 40 MG/4 ML SDV IV ONE (15:07)
--- NOTE | 2019-07-29 15:51 | RADIOLOGY REPORT (SQ) ---
EXAM DESCRIPTION: CHEST SINGLE VIEW COMPLETED DATE/TIME: 07/29/2019 3:42 pm REASON FOR STUDY: SOB COMPARISON: 04/29/2019 EXAM PARAMETERS: NUMBER OF VIEWS: One view. TECHNIQUE: Single frontal radiographic view of the chest acquired. RADIATION DOSE: NA LIMITATIONS: None. FINDINGS: LUNGS AND PLEURA: Vascular congestion. No jad pulmonary edema. MEDIASTINUM AND HILAR STRUCTURES: No masses. Contour normal. HEART AND VASCULAR STRUCTURES: Cardiomegaly. BONES: No acute findings. HARDWARE: Sternotomy wires. Graft markers. OTHER: No other significant finding. IMPRESSION: Cardiomegaly with pulmonary vascular congestion. No jad pulmonary edema. TECHNICAL DOCUMENTATION: JOB ID: [id number] [employer]- All Rights Reserved Reading location - IP/workstation name: [email or web address]
--- NOTE | 2019-07-29 16:21 | ER Document Report ---
ED General - General Chief Complaint: Shortness Of Breath Stated Complaint: SHORTNESS OF BREATH Time Seen by Provider: 07/29/19 14:58 Primary Care Provider: CARLOS LARSON MD [ACTIVE STAFF] - Follow up as needed TRAVEL OUTSIDE OF THE [place] IN LAST 30 DAYS: No - HPI Patient complains to provider of: Shortness of breath Notes: 74-year-old with extensive medical history of COPD and CHF presents with increasing work of breathing, decreased exercise tolerance, orthopnea. This all started about 3 days ago is gotten worse and worse. Patient denies any overt chest pain at this time. Patient does endorse increasing leg swelling as well she does take daily Lasix. Patient had a cardiac catheterization performed approximately 3 weeks ago showed no arterial disease. They do not have the catheter properly say her pressures were up in her heart. Not sure what that meant. Patient was then started on amlodipine. - Related Data Allergies/Adverse Reactions: amoxicillin trihydrate [From Augmentin] Allergy (Severe, Verified 04/29/19 17:21) stomach cramps, n and v, rash butalbital [From Fiorinal] Allergy (Unknown, Verified 04/29/19 17:21) rash metformin HCl [From Glucophage] Allergy (Unknown, Verified 04/29/19 17:21) rash Potassium Clavulanate * [From Augmentin] Adverse Reaction (Unknown, Verified 17:21) nausea, vomit, epig pain Past Medical History - Social History Smoking Status: Unknown if Ever Smoked Family History: CAD, COPD, DM, Hypertension, Malignancy, Other - Kidney disease Patient has suicidal ideation: No Patient has homicidal ideation: No - Past Medical History Cardiac Medical History: Reports: Hx Congestive Heart Failure, Hx Coronary Artery Disease - CABG in 2001, Hx Heart Attack, Hx Hypercholesterolemia, Hx Hypertension Denies: Hx Atrial Fibrillation, Hx DVT, Hx Pulmonary Embolism Pulmonary Medical History: Reports: Hx Asthma, Hx Bronchitis, Hx COPD, Hx Pne um[place], Hx Respiratory Failure, Hx Sleep Apnea - no cpap insurance does not cover Denies: Hx Tuberculosis Neurological Medical History: Reports: Hx Cerebrovascular Accident - X4. Denies: Hx Seizures Endocrine Medical History: Reports: Hx Diabetes Mellitus Type 2. Denies: Hx Diabetes Mellitus Type 1, Hx Hyperthyroidism, Hx Hypothyroidism Renal/ Medical History: Reports: Hx End Stage Renal Disease, Hx Kidney Stones. Denies: Hx Peritoneal Dialysis GI Medical History: Reports: Hx Ulcer. Denies: Hx Cirrhosis, Hx Gastroesophageal Reflux Disease, Hx Hepatitis, Hx Pancreatitis Musculoskeletal Medical History: Reports Hx Arthritis, Denies Hx Gout, Denies Hx Multiple Sclerosis, Denies Hx Systemic Lupus Erythematosus Skin Medical History: Denies Hx Eczema, Denies Hx Psoriasis Psychiatric Medical History: Reports: Hx Depression Denies: Hx Bipolar Disorder, Hx Schizophrenia Infectious Medical History: Denies: Hx Hepatitis Past Surgical History: Reports: Hx Cardiac Catheterization, Hx Section, Hx Cholecystectomy, Hx Coronary Stent, Hx Gastric Bypass Surgery - 2001, Hx Gynecologic Surgery, Hx Hysterectomy, Hx Open Heart Surgery - 2001 TRIPLE BYPASS, Hx Rectal Surgery, Hx Tubal Ligation - Immunizations Hx Diphtheria, Pertussis, Tetanus Vaccination: No Hx Pneumococcal Vaccination: 11/11/14 Review of Systems - Review of Systems Notes: REVIEW OF SYSTEMS: CONSTITUTIONAL: -fevers, -chills EENT: -eye pain, -difficulty swallowing, -nasal congestion CARDIOVASCULAR: -chest pain, -syncope. RESPIRATORY: Increasing cough, shortness of breath GASTROINTESTINAL: -abdominal pain, -nausea, -vomiting, -diarrhea GENITOURINARY: -dysuria, -hematuria MUSCULOSKELETAL: -back pain, -neck pain SKIN: -rash or skin lesions. HEMATOLOGIC: -easy bruising or bleeding. LYMPHATIC: -swollen, enlarged glands. NEUROLOGICAL: -altered mental status or loss of consciousness, -headache, - neurologic symptoms PSYCHIATRIC: -anxiety, -depression. ALL OTHER SYSTEMS REVIEWED AND NEGATIVE. Physical Exam - Vital signs Vitals: Temp Pulse Resp BP Pulse Ox 97.6 F 47 L 22 H 129/47 H 97 07/29/19 14:14 07/29/19 14:14 07/29/19 14:14 07/29/19 14:14 07/29/19 14:14 - Notes Notes: PHYSICAL EXAMINATION: GENERAL: Well-appearing, well-nourished and in no acute distress. HEAD: Atraumatic, normocephalic. EYES: Pupils equal round and reactive to light, extraocular movements intact, sclera anicteric, conjunctiva are normal. ENT: nares patent, oropharynx clear without exudates. Moist mucous membranes. NECK: Normal range of motion, supple without lymphadenopathy LUNGS: Lateral basilar crackles HEART: Regular rate and rhythm without murmurs ABDOMEN: Soft, nontender, normoactive bowel sounds. No guarding, no rebound. No masses appreciated. EXTREMITIES: Normal range of motion, 2+ pitting edema to pretibial region no cyanosis. NEUROLOGICAL: Cranial nerves grossly intact. Normal speech, normal gait. Normal sensory and motor exams. PSYCH: Normal mood, normal affect. SKIN: Warm, Dry, normal turgor, no rashes or lesions noted. Course - Re-evaluation Re-evalutation: 07/29/19 18:14 74-year-old female presents with increasing bilateral lower extremity edema, decreased exercise tolerance and increased oxygen demand per nasal cannula. Patient given breathing treatments in case this is a portion of COPD exacerbation. Patient found to have profound elevation in BNP. Chest x-ray has some vascular congestion without pulmonary edema. Begin diuresis in the emergency department with IV Lasix. Patient will require admission the hospital for further diuresis and close monitoring. - Vital Signs Vital signs: Temp Pulse Resp BP Pulse Ox 97.6 F 47 L 22 H 129/47 H 97 07/29/19 14:14 07/29/19 14:14 07/29/19 14:14 07/29/19 14:14 07/29/19 14:14 - Laboratory Result Diagrams: 07/29/19 17:20 07/29/19 17:20 Laboratory results interpreted by me: 07/29/19 07/29/19 07/29/19 17:20 17:20 17:20 RBC 3.20 L Hgb 9.8 L Hct 30.1 L RDW 15.4 H Plt Count 128 L Eos % (Auto) 6.1 H BUN 43 H Creatinine 2.90 H Est GFR ( Amer) 19 L Est GFR (MDRD) Non-Af 16 L Calcium 8.3 L NT-Pro-B Natriuret Pep 4770 H Albumin 3.3 L - EKG Interpretation by Me Additional EKG results interpreted by me: 07/29/19 16:42 Sinus bradycardia 47 bpm, no ST elevations or depressions, no pathologic T wave inversions, normal IN interval. Discharge - Discharge Clinical Impression: CHF (congestive heart failure) Qualifiers: Heart failure type: unspecified Heart failure chronicity: acute on chronic Qualified Code(s): I50.9 - Heart failure, unspecified Condition: Stable Disposition: ADMITTED INPATIENT Admitting Provider: Mateus Eaton Unit Admitted: Medical Floor Referrals: CARLOS LARSON MD [ACTIVE STAFF] - Follow up as needed
[2019-07-29 17:34] LABS: ABSOLUTE EOSINOPHILS # (AUTO) 0.3 10^3/uL (0.0-0.6); ABSOLUTE LYMPHOCYTES (AUTO) 1.1 10^3/uL (0.5-4.7); ABSOLUTE MONOCYTES (AUTO) 0.4 10^3/uL (0.1-1.4); ABSOLUTE NEUT (AUTO) 3.1 10^3/uL (1.7-8.2); BASOPHILS % (AUTO) 0.8 % (0-2); EOSINOPHILS % (AUTO) 6.1 % (0-6); HEMATOCRIT 30.1 % (36.0-47.0); HEMOGLOBIN 9.8 g/dL (12.0-15.5); MEAN CORPUSCULAR HEMOGLOBIN 30.7 pg (27.0-33.4); MEAN CORPUSCULAR HGB CONC 32.7 g/dL (32.0-36.0); MEAN CORPUSCULAR VOLUME 94 fl (80-97); MONOCYTES % (AUTO) 7.2 % (3-13); PLATELET COUNT 128 10^3/uL (150-450); RED CELL DISTRIBUTION WIDTH 15.4 % (11.5-14.0); SEGMENTED NEUTROPHILS % (AUTO) 62.9 % (42-78); TOTAL CELLS COUNTED % (AUTO) 100 %; WHITE BLOOD COUNT 4.9 10^3/uL (4.0-10.5)
[2019-07-29] MEDS ORDERED: IPRATROPIUM/ALBUTEROL 0.5-2.5 MG/3 ML AMPUL NEB ONE (17:37)
[2019-07-29 17:46] LABS: INTERNATIONAL RATION (INR) 1.17
[2019-07-29 17:47] LABS: PARTIAL THROMBOPLASTIN TIME 32.6 SEC (23.5-35.8)
[2019-07-29 17:52] LABS: ALBUMIN 3.3 g/dL (3.5-5.0); ALKALINE PHOSPHATASE 66 U/L (38-126); ANION GAP 8 (5-19); ASPARTATE AMINO TRANSFERASE 27 U/L (14-36); BILIRUBIN,DIRECT 0.2 mg/dL (0.0-0.4); BILIRUBIN,TOTAL 0.3 mg/dL (0.2-1.3); BLOOD UREA NITROGEN 43 mg/dL (7-20); CALCIUM 8.3 mg/dL (8.4-10.2); CARBON DIOXIDE 28 mmol/L (22-30); CHLORIDE 101 mmol/L (98-107); GLUCOSE 97 mg/dL (75-110); POTASSIUM 4.8 mmol/L (3.6-5.0); TOTAL PROTEIN 6.3 g/dL (6.3-8.2)
[2019-07-29 18:02] LABS: NT PRO BNP 4770 pg/mL (5-900)
[2019-07-29 18:03] LABS: TROPONIN I < 0.012 ng/mL
--- NOTE | 2019-07-29 18:27 | EKG REPORT ---
SEVERITY:- ABNORMAL ECG - SINUS BRADYCARDIA PROBABLE INFERIOR INFARCT, AGE INDETERMINATE CONSIDER ANTERIOR INFARCT : Confirmed by: Pelon Ruano MD 29-Jul-2019 18:26:31
[2019-07-29] MEDS ORDERED: ZOLPIDEM TARTRATE 5 MG TABLET PO PRN (18:32)
[2019-07-29] MEDS ORDERED: ALBUTEROL SULFATE 0.083% NEB 2.5 MG/3 ML AMPUL NEB PRN (18:32)
[2019-07-29] MEDS ORDERED: ONDANSETRON HCL INJ/PF 4 MG/2 ML SDV IV PRN (18:32)
[2019-07-29] MEDS ORDERED: MAG HYDROX/AL HYDROX/SIMETH SUSP 30 ML UDCUP PO PRN (18:32)
[2019-07-29] MEDS ORDERED: GLUCAGON,HUMAN RECOMB 1 MG INJ IM PRN (18:39)
[2019-07-29] MEDS ORDERED: DEXTROSE 40% GEL 15 GM TUBE PO PRN ×2 (18:39)
[2019-07-29] MEDS ORDERED: DEXTROSE 50%-WATER 25 GM/50 ML DISP.SYRIN IV PRN ×2 (18:39)
[2019-07-29] MEDS ORDERED: HYDROMORPHONE HCL INJ/PF 2 MG/ML AMPULE IV PRN (18:40)
--- NOTE | 2019-07-29 18:40 | Progress Note Acknowledgement ---
Progress Note Acknowledgement Progess Note Acknowledgement: I, the undersigned member of the medical staff with appropriate privileges and with supervisory authority over [Felice Eaton], a dependent practice allied health professional, acknowledge that I have reviewed the progress notes entered on this patient, and in my professional judgment believe that the assessment made and/or any care evidenced was appropriate
--- NOTE | 2019-07-29 18:52 | PDOC H&P ---
History of Present Illness Admission Date/PCP: 07/29/19 18:29 DANI PANDA DO Re [facility] Dr. Quesada Unit Controller Dr. Serra Patient complains of: Shortness of breath and pain at this time History of Present Illness: PRECIOUS BURCH is a 74 year old female who presented to the ER with extensive medical history including chronic COPD and diastolic congestive heart failure with increased work of breathing, decreased exercise tolerance, and orthopnea. Patient does have gross anasarca scattered throughout her body including +2-3 bilateral lower extremity pitting edema. Patient had cardiac catheterization performed approximately 3 weeks ago showed no arterial disease although she has got out right radial cardia in the 40s at this time. On her med reconciliation she does show that she takes metoprolol which I will hold at this time. She denies any chest pain at this time she does state she has pain throughout her body she usually takes Percocet. Is had no treatment prior to arrival and all active is been aggravating factor. Past Medical History Cardiac Medical History: Reports: Congestive Heart Failure, Coronary Artery Disease - CABG in 2001, Myocardial Infarction, Hyperlipidema, Hypertension Denies: Atrial Fibrillation, DVT, Pulmonary Embolism Pulmonary Medical History: Reports: Asthma, Bronchitis, Chronic Obstructive Pulmonary Disease (COPD), Pneumonia, Respiratory Failure, Sleep Apnea - no cpap insurance does not cover Denies: Tuberculosis Neurological Medical History: Denies: Seizures Endocrine Medical History: Reports: Diabetes Mellitus Type 2 Denies: Diabetes Mellitus Type 1, Hyperthyroidism, Hypothyroidism Renal/ Medical History: Reports: End Stage Renal Disease GI Medical History: Denies: Cirrhosis, Gastroesophageal Reflux Disease, Hepatitis Musculoskeltal Medical History: Reports: Arthritis Denies: Gout Skin Medical History: Denies: Eczema, Psoriasis Psychiatric Medical History: Reports: Depression Denies: Bipolar Disorder Hematology: Reports: Anemia, Bleeding Tendencies Denies: Hemophilia, Sickle Cell Disease Past Surgical History Past Surgical History: Reports: Cardiac Catheterization, Section, Cholecystectomy, Coronary Stent, Gastric Bypass Surgery - 2001, Hysterectomy, Tubal Ligation Denies: Amputation Social History Information Source: Patient Lives with: Family Smoking Status: Never Smoker Frequency of Alcohol Use: None Hx Recreational Drug Use: No Drugs: None Hx Prescription Drug Abuse: No - Advance Directive Resuscitation Status: Full Code Family History Family History: CAD, COPD, DM, Hypertension, Malignancy, Other - Kidney disease Parental Family History Reviewed: Yes Children Family History Reviewed: Yes Sibling(s) Family History Reviewed.: Yes Medication/Allergy Home Medications: Aspirin [Adult Low Dose Aspirin EC] 81 mg PO DAILY 04/29/19 Ezetimibe [Zetia 10 mg Tablet] 10 mg PO DAILY 04/29/19 Gabapentin [Neurontin 300 mg Capsule] 600 mg PO Q12 04/29/19 Amlodipine Besylate [Norvasc 5 mg Tablet] 5 mg PO DAILY 04/30/19 Clopidogrel Bisulfate [Plavix 75 mg Tablet] 75 mg PO DAILY 04/30/19 Fenofibrate 160 mg PO DAILY 04/30/19 Furosemide [Lasix 20 mg Tablet] 20 mg PO DAILY 04/30/19 Insulin Glargine,Hum.rec.anlog [Lantus Insulin 100 Unit/1 ml 10 ml] 18 unit SQ Q HS 04/30/19 Isosorbide Mononitrate [Imdur 60 mg Tablet.er] 60 mg PO DAILY 04/30/19 Linaclotide [Linzess] 72 mcg PO ACBRKFST 04/30/19 Loratadine [Claritin 10 mg Tablet] 10 mg PO DAILY 04/30/19 Metoprolol Succinate [Toprol Xl 25 mg Tab.sr] 25 mg PO DAILY 04/30/19 Montelukast Sodium [Singulair 10 mg Tablet] 10 mg PO QHS 04/30/19 Omeprazole 40 mg PO BID 04/30/19 Oxycodone HCl/Acetaminophen [Percocet 5-325 mg Tablet] 1 tab PO Q6HP PRN 04/30/19 Rosuvastatin Calcium [Crestor] 40 mg PO QHS 04/30/19 Sitagliptin Phosphate [Januvia] 100 mg PO DAILY 04/30/19 Telmisartan [Micardis 20 mg Tablet] 20 mg PO DAILY 04/30/19 Patiromer Calcium Sorbitex [Veltassa] 16.8 gm PO WSUPPER 15 Days #15 powd.pack 05/03/19 Sodium Polystyrene Sulfonate [Kayexalate 15 Gm/60 Ml Susp 60 Ml] 15 gm PO BID 15 Days #30 bottle 05/03/19 Allergies/Adverse Reactions: amoxicillin trihydrate [From Augmentin] Allergy (Severe, Verified 04/29/19 17:21) stomach cramps, n and v, rash butalbital [From Fiorinal] Allergy (Unknown, Verified 04/29/19 17:21) rash metformin HCl [From Glucophage] Allergy (Unknown, Verified 04/29/19 17:21) rash Potassium Clavulanate * [From Augmentin] Adverse Reaction (Unknown, Verified 04/29/19 17:21) nausea, vomit, epig pain Review of Systems Constitutional: ABSENT: chills, fever(s), headache(s), weight gain, weight loss Eyes: ABSENT: visual disturbances Ears: ABSENT: hearing changes Cardiovascular: PRESENT: other - Gross anasarca, +2-3 bilateral lower extremity pitting edema periorbital edema. ABSENT: chest pain, dyspnea on exertion, edema, orthropnea, palpitations Respiratory: PRESENT: dyspnea, other - Exercise intolerance and orthopnea. ABSENT: cough, hemoptysis Gastrointestinal: ABSENT: abdominal pain, constipation, diarrhea, hematemesis, hematochezia, nausea, vomiting Genitourinary: ABSENT: dysuria, hematuria Musculoskeletal: ABSENT: joint swelling Integumentary: ABSENT: rash, wounds Neurological: ABSENT: abnormal gait, abnormal speech, confusion, dizziness, focal weakness, syncope Psychiatric: ABSENT: anxiety, depression, homidical ideation, suicidal ideation Endocrine: ABSENT: cold intolerance, heat intolerance, polydipsia, polyuria Hematologic/Lymphatic: ABSENT: easy bleeding, easy bruising Physical Exam Vital Signs: Temp Pulse Resp BP Pulse Ox 97.6 F 47 L 22 H 129/47 H 97 07/29/19 14:14 07/29/19 14:14 07/29/19 14:14 07/29/19 14:14 07/29/19 14:14 Intake & Output 07/28/19 07/29/19 07/30/19 06:59 06:59 06:59 Weight 92.6 kg General appearance: PRESENT: mild distress, morbidly obese Head exam: PRESENT: atraumatic, normocephalic Eye exam: PRESENT: conjunctiva pink, EOMI, PERRLA. ABSENT: scleral icterus Neck exam: ABSENT: carotid bruit, JVD, lymphadenopathy, thyromegaly Respiratory exam: PRESENT: accessory muscle use, crackles, symmetrical, tachypnea, wheezes Cardiovascular exam: PRESENT: bradycardia, RRR Pulses: PRESENT: +1 pedal pulses bilateral Vascular exam: PRESENT: normal capillary refill GI/Abdominal exam: PRESENT: normal bowel sounds, soft. ABSENT: distended, guarding, mass, organolmegaly, rebound, tenderness Rectal exam: PRESENT: deferred Extremities exam: PRESENT: full ROM, pedal edema, other - +2-3 pitting edema bilateral lower extremity. ABSENT: calf tenderness, clubbing Neurological exam: PRESENT: alert, awake, oriented to person, oriented to place, oriented to time, oriented to situation, CN II-XII grossly intact. ABSENT: motor sensory deficit Psychiatric exam: PRESENT: appropriate affect, normal mood. ABSENT: homicidal ideation, suicidal ideation Skin exam: PRESENT: dry, intact, warm. ABSENT: cyanosis, rash Results Laboratory Results: 07/29/19 17:20 07/29/19 17:20 07/29/19 07/29/19 17:20 17:20 WBC 4.9 RBC 3.20 L Hgb 9.8 L Hct 30.1 L MCV 94 MCH 30.7 MCHC 32.7 RDW 15.4 H Plt Count 128 L Seg Neutrophils % 62.9 Sodium 137.0 Potassium 4.8 Chloride 101 Carbon Dioxide 28 Anion Gap 8 BUN 43 H Creatinine 2.90 H Est GFR ( Amer) 19 L Glucose 97 Calcium 8.3 L Total Bilirubin 0.3 AST 27 Alkaline Phosphatase 66 Total Protein 6.3 Albumin 3.3 L 07/29/19 17:20 Troponin I < 0.012 NT-Pro-B Natriuret Pep 4770 H Impressions: Chest X-Ray 07/29/19 14:58 IMPRESSION: Cardiomegaly with pulmonary vascular congestion. No jad pulmonary edema. Assessment and Plan - Diagnosis (1) Acute on chronic diastolic (congestive) heart failure Is this a current diagnosis for this admission?: Yes Plan: 07/29/2019-we will place patient on IMCU at this time I will give her Bumex 2 mg IV every 8 hours. We will diurese and continue to monitor her creatinine as she does have chronic renal failure stage IV as well. Rivera catheter for strict I&O's, Nitropaste 1 inch every 6. (2) Acute exacerbation of chronic obstructive pulmonary disease (COPD) Is this a current diagnosis for this admission?: Yes Plan: 07/29/2019-DuoNeb's 3 times daily, albuterol nebs every 4 as needed, Levaquin 500 mg every 48 hours, Solu-Medrol 40 mill grams IV 3 times daily,. Continue to follow adjustments based on patient needs. (3) Acute on chronic renal failure Qualifiers: Is this a current diagnosis for this admission?: Yes Plan: 07/29/2019-creatinine 2.9 with a GFR of 16 at this time. I will continue to follow if this shows a bump I will consult Dr. Serra for further evaluation and treatment. I am given patient Bumex for less chance of left foot toxic effects. (4) Diabetes mellitus type 2 in obese Is this a current diagnosis for this admission?: Yes Plan: 07/29/2019-once medication reconciliation is complete I will continue home medications. Carbohydrate controlled diet with sliding scale insulin before meals and at bedtime. (5) Anemia Is this a current diagnosis for this admission?: Yes Plan: 07/29/2019-chronic stable continue to follow daily CBCs - Time Time Spent with patient: 35 or more minutes - Inpatient Certification Based on my medical assessment, after consideration of the patient's comorbidities, presenting symptoms, or acuity I expect that the services needed warrant INPATIENT care.: Yes I certify that my determination is in accordance with my understanding of Medicare's requirements for reasonable and necessary INPATIENT services [42 CFR 412.3e].: Yes Medical Necessity: Other - IV diuresis, IV steroids, IV antibiotics
[2019-07-29] MEDS: IPRATROPIUM/ALBUTEROL 0.5-2.5 MG/3 ML AMPUL NEB SCH (20:45)
[2019-07-29] MEDS ORDERED: PROMETHAZINE HCL INJ 25 MG/1 ML VIAL ONE (22:52)
[2019-07-29] MEDS: LEVOFLOXACIN 500 MG/D5W RTU 500 MG/100 ML RTUPB IV SCH (22:55)
[2019-07-29] MEDS: BUMETANIDE INJ/PF 1 MG/4 ML SDV IV SCH (22:56)
[2019-07-29] MEDS: METHYLPREDNISOLONE INJ 40 MG/1 ML SDV IV SCH (22:57)
[2019-07-29] MEDS: INSULIN REG, HUMAN 100 UNIT/ML 3 ML VIAL (PYX) SUBCUT SCH (23:19)
[2019-07-30] MEDS: HEPARIN SOD (PORCINE) 5,000 UNIT/ML 1 ML VIAL SUBCUT SCH ×4 (00:38→22:27)
[2019-07-30] MEDS: NITROGLYCERIN 2% OINTMENT 1 GM PACKET TP SCH ×4 (00:46→18:19)
[2019-07-30] MEDS: METHYLPREDNISOLONE INJ 40 MG/1 ML SDV IV SCH ×3 (06:49→22:27)
[2019-07-30] MEDS: BUMETANIDE INJ/PF 1 MG/4 ML SDV IV SCH ×3 (06:49→22:30)
[2019-07-30 07:09] LABS: ABSOLUTE LYMPHOCYTES (AUTO) 0.5 10^3/uL (0.5-4.7); ABSOLUTE MONOCYTES (AUTO) 0.1 10^3/uL (0.1-1.4); ABSOLUTE NEUT (AUTO) 3.9 10^3/uL (1.7-8.2); BASOPHILS % (AUTO) 0.4 % (0-2); EOSINOPHILS % (AUTO) 0.6 % (0-6); HEMATOCRIT 31.9 % (36.0-47.0); HEMOGLOBIN 10.3 g/dL (12.0-15.5); LYMPHOCYTES % (AUTO) 10.7 % (13-45); MEAN CORPUSCULAR HEMOGLOBIN 30.3 pg (27.0-33.4); MEAN CORPUSCULAR HGB CONC 32.2 g/dL (32.0-36.0); MEAN CORPUSCULAR VOLUME 94 fl (80-97); MONOCYTES % (AUTO) 1.4 % (3-13); PLATELET COUNT 116 10^3/uL (150-450); RED BLOOD COUNT 3.39 10^6/uL (3.72-5.28); RED CELL DISTRIBUTION WIDTH 15.1 % (11.5-14.0); SEGMENTED NEUTROPHILS % (AUTO) 86.9 % (42-78); TOTAL CELLS COUNTED % (AUTO) 100 %; WHITE BLOOD COUNT 4.4 10^3/uL (4.0-10.5)
[2019-07-30 07:41] LABS: ANION GAP 10 (5-19); BLOOD UREA NITROGEN 45 mg/dL (7-20); CALCIUM 8.3 mg/dL (8.4-10.2); CARBON DIOXIDE 28 mmol/L (22-30); CHLORIDE 98 mmol/L (98-107); GLUCOSE 270 mg/dL (75-110); PHOSPHORUS 5.3 mg/dL (2.5-4.5); POTASSIUM 5.3 mmol/L (3.6-5.0)
[2019-07-30] MEDS: IPRATROPIUM/ALBUTEROL 0.5-2.5 MG/3 ML AMPUL NEB SCH ×3 (08:53→20:27)
--- NOTE | 2019-07-30 10:19 | PDOC PROGRESS REPORT ---
Subjective Progress Note for:: 07/30/19 Subjective:: 07/30/2019-improved shortness of breath this a.m. Reason For Visit: ACUTE EXCERBATION OF CHRONIC DIASTOLIC CONGESTIVE Physical Exam Vital Signs: Temp Pulse Resp BP Pulse Ox 98.2 F 69 14 145/52 H 98 07/30/19 07:16 07/30/19 08:53 07/30/19 08:53 07/30/19 07:16 07/30/19 08:53 Intake & Output 07/29/19 07/30/19 07/31/19 06:59 06:59 06:59 Intake Total 236 Balance 236 Weight 91.1 kg General appearance: PRESENT: no acute distress, well-developed, well-nourished Neck exam: ABSENT: carotid bruit, JVD, lymphadenopathy, thyromegaly Respiratory exam: PRESENT: crackles, decreased breath sounds, unlabored Cardiovascular exam: ABSENT: diastolic murmur, rubs, systolic murmur Pulses: PRESENT: +1 pedal pulses bilateral Vascular exam: PRESENT: normal capillary refill GI/Abdominal exam: PRESENT: normal bowel sounds, soft. ABSENT: distended, guarding, mass, organolmegaly, rebound, tenderness Extremities exam: PRESENT: full ROM, pedal edema, +2 edema. ABSENT: calf tenderness, clubbing Neurological exam: PRESENT: alert, awake, oriented to person, oriented to place, oriented to time, oriented to situation, CN II-XII grossly intact. ABSENT: motor sensory deficit Psychiatric exam: PRESENT: appropriate affect, normal mood. ABSENT: homicidal ideation, suicidal ideation Skin exam: PRESENT: dry, intact, warm. ABSENT: cyanosis, rash Results Laboratory Results: 07/30/19 05:57 07/30/19 05:57 07/29/19 07/29/19 07/30/19 17:20 17:20 05:57 WBC 4.9 4.4 RBC 3.20 L 3.39 L Hgb 9.8 L 10.3 L Hct 30.1 L 31.9 L MCV 94 94 MCH 30.7 30.3 MCHC 32.7 32.2 RDW 15.4 H 15.1 H Plt Count 128 L 116 L Seg Neutrophils % 62.9 86.9 H Sodium 137.0 Potassium 4.8 Chloride 101 Carbon Dioxide 28 Anion Gap 8 BUN 43 H Creatinine 2.90 H Est GFR ( Amer) 19 L Glucose 97 Calcium 8.3 L Phosphorus Magnesium Total Bilirubin 0.3 AST 27 Alkaline Phosphatase 66 Total Protein 6.3 Albumin 3.3 L 07/30/19 05:57 WBC RBC Hgb Hct MCV MCH MCHC RDW Plt Count Seg Neutrophils % Sodium 136.4 L Potassium 5.3 H Chloride 98 Carbon Dioxide 28 Anion Gap 10 BUN 45 H Creatinine 2.69 H Est GFR ( Amer) 21 L Glucose 270 H Calcium 8.3 L Phosphorus 5.3 H Magnesium 2.1 Total Bilirubin AST Alkaline Phosphatase Total Protein Albumin 07/29/19 07/30/19 17:20 05:57 Troponin I < 0.012 NT-Pro-B Natriuret Pep 4770 H 4600 H Impressions: Chest X-Ray 07/29/19 14:58 IMPRESSION: Cardiomegaly with pulmonary vascular congestion. No jad pulmonary edema. Assessment and Plan - Diagnosis (1) Acute on chronic diastolic (congestive) heart failure Is this a current diagnosis for this admission?: Yes Plan: 07/29/2019-we will place patient on IMCU at this time I will give her Bumex 2 mg IV every 8 hours. We will diurese and continue to monitor her creatinine as she does have chronic renal failure stage IV as well. Rivera catheter for strict I&O's, Nitropaste 1 inch every 6. 07/30/2019-improved this a.m. Patient's creatinine is improved as well most likely from decreasing her preload. We will continue Bumex 2 mg IV every 8 will reassess in the a.m. (2) Acute exacerbation of chronic obstructive pulmonary disease (COPD) Is this a current diagnosis for this admission?: Yes Plan: 07/29/2019-DuoNeb's 3 times daily, albuterol nebs every 4 as needed, Levaquin 500 mg every 48 hours, Solu-Medrol 40 mill grams IV 3 times daily,. Continue to follow adjustments based on patient needs. 07/30/2019-continue bronchodilators, antibiotic and steroids. (3) Acute on chronic renal failure Qualifiers: Is this a current diagnosis for this admission?: Yes Plan: 07/29/2019-creatinine 2.9 with a GFR of 16 at this time. I will continue to follow if this shows a bump I will consult Dr. Serra for further evaluation an d treatment. I am given patient Bumex for less chance of left foot toxic effects. 07/30/2019-improved this a.m. Creatinine has dropped to 2.13 most likely secondary to decreasing preload. We will continue to follow continue Bumex at this time. (4) Diabetes mellitus type 2 in obese Is this a current diagnosis for this admission?: Yes Plan: 07/29/2019-once medication reconciliation is complete I will continue home medications. Carbohydrate controlled diet with sliding scale insulin before meals and at bedtime. 07/30/2019-remains elevated in the mid 200 range. I suspect this is from her diabetes as well as her being on IV steroids at this time. I will add Lantus 10 units at bedtime and will DC IV steroids tomorrow placed on p.o. prednisone. (5) Anemia Is this a current diagnosis for this admission?: Yes Plan: 07/29/2019-chronic stable continue to follow daily CBCs 07/30/2019-chronic stable - Time Time Spent with patient: 15-24 minutes - Inpatient Certification Based on my medical assessment, after consideration of the patient's comorbidities, presenting symptoms, or acuity I expect that the services needed warrant INPATIENT care.: Yes I certify that my determination is in accordance with my understanding of Medicare's requirements for reasonable and necessary INPATIENT services [42 CFR 412.3e].: Yes Medical Necessity: Other - IV diuresis, IV antibiotics
[2019-07-30] MEDS: OXYCODONE-ACETAMINOPHEN 5-325 MG TABLET PO PRN ×2 (10:27→22:30)
[2019-07-30] MEDS: INSULIN REG, HUMAN 100 UNIT/ML 3 ML VIAL (PYX) SUBCUT SCH ×4 (10:27→22:28)
[2019-07-30] MEDS ORDERED: SODIUM POLYSTYRENE SULFONATE 15 GM/60 ML PO ONE (11:00)
[2019-07-30] MEDS: INSULIN GLARGINE,HUM.REC.ANLOG 1,000 UNIT/10 ML VIAL SUBCUT SCH (22:29)
[2019-07-31] MEDS: NITROGLYCERIN 2% OINTMENT 1 GM PACKET TP SCH ×4 (00:07→18:13)
[2019-07-31] MEDS: METHYLPREDNISOLONE INJ 40 MG/1 ML SDV IV SCH (06:44)
[2019-07-31] MEDS: BUMETANIDE INJ/PF 1 MG/4 ML SDV IV SCH (06:47)
[2019-07-31 06:48] LABS: ABSOLUTE LYMPHOCYTES (AUTO) 0.5 10^3/uL (0.5-4.7); ABSOLUTE MONOCYTES (AUTO) 0.1 10^3/uL (0.1-1.4); ABSOLUTE NEUT (AUTO) 3.1 10^3/uL (1.7-8.2); BASOPHILS % (AUTO) 0.3 % (0-2); HEMATOCRIT 28.3 % (36.0-47.0); HEMOGLOBIN 9.3 g/dL (12.0-15.5); LYMPHOCYTES % (AUTO) 12.4 % (13-45); MEAN CORPUSCULAR HEMOGLOBIN 30.5 pg (27.0-33.4); MEAN CORPUSCULAR VOLUME 92 fl (80-97); MONOCYTES % (AUTO) 3.4 % (3-13); PLATELET COUNT 106 10^3/uL (150-450); RED BLOOD COUNT 3.06 10^6/uL (3.72-5.28); RED CELL DISTRIBUTION WIDTH 15.2 % (11.5-14.0); SEGMENTED NEUTROPHILS % (AUTO) 83.9 % (42-78); TOTAL CELLS COUNTED % (AUTO) 100 %; WHITE BLOOD COUNT 3.7 10^3/uL (4.0-10.5)
[2019-07-31] MEDS: HEPARIN SOD (PORCINE) 5,000 UNIT/ML 1 ML VIAL SUBCUT SCH ×3 (06:48→21:26)
[2019-07-31 07:05] LABS: ANION GAP 10 (5-19); BLOOD UREA NITROGEN 53 mg/dL (7-20); CALCIUM 7.9 mg/dL (8.4-10.2); CARBON DIOXIDE 29 mmol/L (22-30); CHLORIDE 95 mmol/L (98-107); GLUCOSE 282 mg/dL (75-110); POTASSIUM 4.9 mmol/L (3.6-5.0)
[2019-07-31] MEDS: INSULIN REG, HUMAN 100 UNIT/ML 3 ML VIAL (PYX) SUBCUT SCH ×4 (08:15→21:29)
[2019-07-31] MEDS: IPRATROPIUM/ALBUTEROL 0.5-2.5 MG/3 ML AMPUL NEB SCH ×3 (08:42→20:26)
--- NOTE | 2019-07-31 09:22 | PDOC PROGRESS REPORT ---
Subjective Progress Note for:: 07/31/19 Subjective:: 07/30/2019-improved shortness of breath this a.m. 07/31/2019-no complaints this a.m. Reason For Visit: ACUTE EXCERBATION OF CHRONIC DIASTOLIC CONGESTIVE Physical Exam Vital Signs: Temp Pulse Resp BP Pulse Ox 98.5 F 72 16 172/74 H 97 07/31/19 07:21 07/31/19 07:21 07/31/19 07:21 07/31/19 07:21 07/31/19 07:21 Intake & Output 07/30/19 07/31/19 08/01/19 06:59 06:59 06:59 Intake Total 336 1520 Balance 336 1520 Weight 91.1 kg 89.9 kg General appearance: PRESENT: no acute distress, well-developed, well-nourished Neck exam: ABSENT: carotid bruit, JVD, lymphadenopathy, thyromegaly Respiratory exam: PRESENT: decreased breath sounds. ABSENT: rales, rhonchi, w heezes Cardiovascular exam: PRESENT: RRR. ABSENT: diastolic murmur, rubs, systolic murmur Pulses: PRESENT: +1 pedal pulses bilateral Vascular exam: PRESENT: normal capillary refill GI/Abdominal exam: PRESENT: normal bowel sounds, soft. ABSENT: distended, guarding, mass, organolmegaly, rebound, tenderness Extremities exam: PRESENT: pedal edema, +2 edema Neurological exam: PRESENT: alert, awake, oriented to person, oriented to place, oriented to time, oriented to situation, CN II-XII grossly intact. ABSENT: motor sensory deficit Psychiatric exam: PRESENT: appropriate affect, normal mood. ABSENT: homicidal ideation, suicidal ideation Skin exam: PRESENT: dry, intact, warm. ABSENT: cyanosis, rash Results Laboratory Results: 07/31/19 06:13 07/31/19 06:13 07/31/19 07/31/19 06:13 06:13 WBC 3.7 L RBC 3.06 L Hgb 9.3 L Hct 28.3 L MCV 92 MCH 30.5 MCHC 33.0 RDW 15.2 H Plt Count 106 L Seg Neutrophils % 83.9 H Sodium 134.0 L Potassium 4.9 Chloride 95 L Carbon Dioxide 29 Anion Gap 10 BUN 53 H Creatinine 2.69 H Est GFR ( Amer) 21 L Glucose 282 H Calcium 7.9 L 09/18/19 09/19/19 17:20 05:57 Troponin I < 0.012 NT-Pro-B Natriuret Pep 4770 H 4600 H Impressions: Chest X-Ray 07/29/19 14:58 IMPRESSION: Cardiomegaly with pulmonary vascular congestion. No jad pulmonary edema. Assessment and Plan - Diagnosis (1) Acute on chronic diastolic (congestive) heart failure Is this a current diagnosis for this admission?: Yes Plan: 07/29/2019-we will place patient on IMCU at this time I will give her Bumex 2 mg IV every 8 hours. We will diurese and continue to monitor her creatinine as she does have chronic renal failure stage IV as well. Rivera catheter for strict I&O's, Nitropaste 1 inch every 6. 07/30/2019-improved this a.m. Patient's creatinine is improved as well most like ly from decreasing her preload. We will continue Bumex 2 mg IV every 8 will reassess in the a.m. 07/31/2019-continues to show improvement. I have DC'd IV Bumex and place patient on Bumex 1 mg p.o. twice daily. Anticipate discharge home in a.m. (2) Acute exacerbation of chronic obstructive pulmonary disease (COPD) Is this a current diagnosis for this admission?: Yes Plan: 07/29/2019-DuoNeb's 3 times daily, albuterol nebs every 4 as needed, Levaquin 500 mg every 48 hours, Solu-Medrol 40 mill grams IV 3 times daily,. Continue to follow adjustments based on patient needs. 07/30/2019-continue bronchodilators, antibiotic and steroids. 07/31/2019-stable continue bronchodilators antibiotics I have DC'd IV steroids and place patient on prednisone 40 mg p.o. daily (3) Acute on chronic renal failure Qualifiers: Is this a current diagnosis for this admission?: Yes Plan: 07/29/2019-creatinine 2.9 with a GFR of 16 at this time. I will continue to follow if this shows a bump I will consult Dr. Serra for further evaluation and treatment. I am given patient Bumex for less chance of left foot toxic effects. 07/30/2019-improved this a.m. Creatinine has dropped to 2.13 most likely secondary to decreasing preload. We will continue to follow continue Bumex at this time. 07/31/2019-stable at this time continue to follow daily renal panels (4) Diabetes mellitus type 2 in obese Is this a current diagnosis for this admission?: Yes Plan: 07/29/2019-once medication reconciliation is complete I will continue home medications. Carbohydrate controlled diet with sliding scale insulin before meals and at bedtime. 07/30/2019-remains elevated in the mid 200 range. I suspect this is from her diabetes as well as her being on IV steroids at this time. I will add Lantus 10 units at bedtime and will DC IV steroids tomorrow placed on p.o. prednisone. 07/31/2019-remains elevated to 200 range. Most likely from IV steroids which I have DC'd at this time. We will continue current insulin therapy and make adjustments based on future needs (5) Anemia Is this a current diagnosis for this admission?: Yes Plan: 07/29/2019-chronic stable continue to follow daily CBCs 07/30/2019-chronic stable 07/31/2019-stable - Time Time Spent with patient: 15-24 minutes - Inpatient Certification Based on my medical assessment, after consideration of the patient's co morbidities, presenting symptoms, or acuity I expect that the services needed warrant INPATIENT care.: Yes I certify that my determination is in accordance with my understanding of Medicare's requirements for reasonable and necessary INPATIENT services [42 CFR 412.3e].: Yes Medical Necessity: Need for IV Antibiotics
[2019-07-31] MEDS: BUMETANIDE 1 MG TABLET PO SCH ×2 (09:29→18:13)
[2019-07-31] MEDS ORDERED: PREDNISONE 20 MG TABLET PO SCH (10:00)
[2019-07-31] MEDS: OXYCODONE-ACETAMINOPHEN 5-325 MG TABLET PO PRN (18:13)
[2019-07-31] MEDS: LEVOFLOXACIN 500 MG/D5W RTU 500 MG/100 ML RTUPB IV SCH (21:26)
[2019-07-31] MEDS: INSULIN GLARGINE,HUM.REC.ANLOG 1,000 UNIT/10 ML VIAL SUBCUT SCH (21:31)
[2019-08-01] MEDS: NITROGLYCERIN 2% OINTMENT 1 GM PACKET TP SCH ×2 (00:28→05:32)
[2019-08-01] MEDS: OXYCODONE-ACETAMINOPHEN 5-325 MG TABLET PO PRN (01:02)
[2019-08-01 05:09] LABS: ABSOLUTE LYMPHOCYTES (AUTO) 0.6 10^3/uL (0.5-4.7); ABSOLUTE MONOCYTES (AUTO) 0.4 10^3/uL (0.1-1.4); ABSOLUTE NEUT (AUTO) 3.3 10^3/uL (1.7-8.2); BASOPHILS % (AUTO) 0.3 % (0-2); EOSINOPHILS % (AUTO) 0.4 % (0-6); HEMATOCRIT 29.1 % (36.0-47.0); HEMOGLOBIN 9.6 g/dL (12.0-15.5); LYMPHOCYTES % (AUTO) 14.9 % (13-45); MEAN CORPUSCULAR HEMOGLOBIN 30.6 pg (27.0-33.4); MEAN CORPUSCULAR HGB CONC 33.1 g/dL (32.0-36.0); MEAN CORPUSCULAR VOLUME 92 fl (80-97); MONOCYTES % (AUTO) 8.4 % (3-13); PLATELET COUNT 114 10^3/uL (150-450); RED BLOOD COUNT 3.15 10^6/uL (3.72-5.28); RED CELL DISTRIBUTION WIDTH 15.3 % (11.5-14.0); TOTAL CELLS COUNTED % (AUTO) 100 %; WHITE BLOOD COUNT 4.3 10^3/uL (4.0-10.5)
[2019-08-01 05:29] LABS: ANION GAP 11 (5-19); BLOOD UREA NITROGEN 63 mg/dL (7-20); CALCIUM 8.4 mg/dL (8.4-10.2); CARBON DIOXIDE 29 mmol/L (22-30); CHLORIDE 94 mmol/L (98-107); GLUCOSE 184 mg/dL (75-110); POTASSIUM 4.1 mmol/L (3.6-5.0)
[2019-08-01] MEDS: HEPARIN SOD (PORCINE) 5,000 UNIT/ML 1 ML VIAL SUBCUT SCH (05:33)
[2019-08-01] MEDS: IPRATROPIUM/ALBUTEROL 0.5-2.5 MG/3 ML AMPUL NEB SCH (08:39)
--- NOTE | 2019-08-01 08:51 | PDOC DISCHARGE SUMMARY ---
General - Admit/Disc Date/PCP Admission Date/Primary Care Provider: 07/29/19 18:29 DANI PANDA, Discharge Date: 08/01/19 - Discharge Diagnosis (1) Acute on chronic diastolic (congestive) heart failure Is this a current diagnosis for this admission?: Yes (2) Acute exacerbation of chronic obstructive pulmonary disease (COPD) Is this a current diagnosis for this admission?: Yes (3) Acute on chronic renal failure Is this a current diagnosis for this admission?: Yes (4) Diabetes mellitus type 2 in obese Is this a current diagnosis for this admission?: Yes (5) Anemia Is this a current diagnosis for this admission?: Yes - Additional Information Resuscitation Status: Full Code Discharge Diet: Cardiac, Diabetic Discharge Activity: Activity As Tolerated, Balance Activity w/Rest, Weigh Daily Prescriptions: Bumetanide [Bumex 1 mg Tablet] 1 mg PO BID #14 tablet Levofloxacin [Levaquin 500 mg Tablet] 500 mg PO Q48H #3 tablet Prednisone 10 mg PO DAILY #21 tab.ds.pk Home Medications: Albuterol Sulfate [Proair HFA Inhalation Aerosol 8.5 gm MDI] 2 puff IH DAILY 07/29/19 Albuterol Sulfate [Ventolin 0.083% Neb 2.5 mg/3 mL Ampul] 3 ml NEB Q6HP PRN 07/29/19 Amlodipine Besylate [Norvasc 2.5 mg Tablet] 2.5 mg PO Q12 07/29/19 Aspirin [Aspirin 81 mg Chewable Tablet] 81 mg PO DAILY 07/29/19 Calcitriol [Rocaltrol 0.25 mcg Capsule] 0.25 mcg PO MOWEFR@1000 07/29/19 Clopidogrel Bisulfate [Plavix 75 mg Tablet] 75 mg PO DAILY 07/29/19 Diazepam [Valium 5 mg Tablet] 5 mg PO DAILY 07/29/19 Diphenhydramine HCl [Diphenhist] 25 mg PO Q6 07/29/19 Docusate Sodium [Colace 100 mg Capsule] 100 mg PO DAILY 07/29/19 Epoetin Aung [Procrit Inj 20,000 Unit/1 ml Vial (Renal)] 20,000 unit IM Q7D 07/29/19 Ergocalciferol (Vitamin D2) [Drisdol 50,000 unit (1.25MG) Capsule] 50,000 unit PO BALDERRAMA@1000 07/29/19 Ezetimibe [Zetia 10 mg Tablet] 10 mg PO DAILY 07/29/19 Fenofibrate 160 mg PO DAILY 07/29/19 Fluticasone/Salmeterol [Advair 250-50 Diskus 14 Dose/Diskus] 1 puff IH Q12 07/29/19 Gabapentin [Neurontin] 600 mg PO Q12 07/29/19 Hydroxyzine Pamoate [Vistaril 50 mg Capsule] 50 mg PO TIDP PRN 07/29/19 Insulin Glargine,Hum.rec.anlog [Basaglar Kwikpen U-100] 50 units SQ Q12 07/29/19 Iron Ps Complex/B12/Folic Acid [Ferrex 150 Forte Capsule] 1 cap PO DAILY 07/29/19 Isosorbide Mononitrate [Imdur 60 mg Tablet.er] 60 mg PO DAILY 07/29/19 Linaclotide [Linzess] 72 mcg PO DAILY 07/29/19 Loperamide HCl [Imodium A-D] 2 mg PO DAILYP PRN 07/29/19 Loratadine [Claritin 10 mg Tablet] 10 mg PO DAILY 07/29/19 Melatonin 5 mg SL QHS 07/29/19 Metoprolol Succinate [Toprol Xl 25 mg Tab.sr] 25 mg PO DAILY 07/29/19 Montelukast Sodium [Singulair 10 mg Tablet] 10 mg PO DAILY 07/29/19 Nitroglycerin 0.4 mg SL Q5HP PRN 07/29/19 Omeprazole 40 mg PO BID 07/29/19 Ondansetron HCl [Zofran 4 mg Tablet] 4 mg PO DAILY 07/29/19 Oxycodone HCl/Acetaminophen [Percocet 5-325 mg Tablet] 1 tab PO Q6HP PRN 07/29/19 Patiromer Calcium Sorbitex [Veltassa] 16.8 gm PO DAILY 07/29/19 Polyvinyl Alcohol [Artificial Tears] 1 drop OU Q2HP PRN 07/29/19 Promethazine HCl [Phenergan 25 mg Tablet] 25 mg PO QHS 07/29/19 Rosuvastatin Calcium [Crestor] 40 mg PO QHS 07/29/19 Sitagliptin Phosphate [Januvia] 100 mg PO DAILY 07/29/19 Telmisartan [Micardis 20 mg Tablet] 20 mg PO DAILY 07/29/19 Tiotropium [place] [Spiriva Handihaler 5 Cap/Kit (18 Mcg/Cap)] 1 puff IH DAILY 07/29/19 Bumetanide [Bumex 1 mg Tablet] 1 mg PO BID #14 tablet 08/01/19 Levofloxacin [Levaquin 500 mg Tablet] 500 mg PO Q48H #3 tablet 08/01/19 Prednisone 10 mg PO DAILY #21 tab.ds.pk 08/01/19 History of Present Illness Patient complains of: No complaints this a.m. History of Present Illness: PRECIOUS BURCH is a 74 year old female who presented to the ER with extensive medical history including chronic COPD and diastolic congestive heart failure with increased work of breathing, decreased exercise tolerance, and orthopnea. Patient does have gross anasarca scattered throughout her body including +2-3 bilateral lower extremity pitting edema. Patient had cardiac catheterization performed approximately 3 weeks ago showed no arterial disease although she has got out right radial cardia in the 40s at this time. On her med reconciliation she does show that she takes metoprolol which I will hold at this time. She denies any chest pain at this time she does state she has pain throughout her body she usually takes Percocet. Is had no treatment prior to arrival and all active is been aggravating factor. Hospital Course Hospital Course: Patient presented on 07/29/2019 with a history including chronic COPD and diastolic congestive heart failure. Patient presented with increased work of breathing, decreased exercise tolerance and orthopnea and was found to be an acute exacerbation of her diastolic congestive heart failure. Patient did have gross scattered anasarca at that time. Patient has chronic +2-3 bilateral lower extremity pitting edema and had a cardiac catheterization performed approximately 3 weeks ago which showed no coronary artery disease. Patient was admitted to the hospital placed on IV Bumex for diuresis, Levaquin, steroids and bronchodilators for her COPD. We also closely monitor her BMP to assure her renal function did not worsen. Patient is improved sufficiently throughout her hospital stay and as of now she is sufficiently improved to return home. I will continue on Bumex 1 mg p.o. twice daily, DC her home IV Lasix. I will continue her on Levaquin 500 mg p.o. every 48 hours x3 more doses, prednisone Dosepak and patient will continue home inhalers as before. Patient will follow-up with her primary care practitioner within 1 week for further evaluation and treatment. Physical Exam Vital Signs: Temp Pulse Resp BP Pulse Ox 98.1 F 69 16 142/54 H 100 08/01/19 07:38 08/01/19 07:38 08/01/19 07:38 08/01/19 07:38 08/01/19 07:38 Intake & Output 07/31/19 08/01/19 08/02/19 06:59 06:59 06:59 Intake Total 1520 1480 Balance 1520 1480 Weight 89.9 kg 88.1 kg General appearance: PRESENT: no acute distress, well-developed, well-nourished Head exam: PRESENT: atraumatic, normocephalic Eye exam: PRESENT: conjunctiva pink, EOMI, PERRLA. ABSENT: scleral icterus Ear exam: PRESENT: normal external ear exam Mouth exam: PRESENT: moist, tongue midline Neck exam: ABSENT: carotid bruit, JVD, lymphadenopathy, thyromegaly Respiratory exam: PRESENT: clear to auscultation cheli. ABSENT: rales, rhonchi, wheezes Cardiovascular exam: PRESENT: RRR. ABSENT: diastolic murmur, rubs, systolic murmur Pulses: PRESENT: +1 pedal pulses bilateral Vascular exam: PRESENT: normal capillary refill GI/Abdominal exam: PRESENT: normal bowel sounds, soft. ABSENT: distended, guarding, mass, organolmegaly, rebound, tenderness Rectal exam: PRESENT: deferred Extremities exam: PRESENT: full ROM, pedal edema, +2 edema. ABSENT: calf tenderness, clubbing Neurological exam: PRESENT: alert, awake, oriented to person, oriented to place, oriented to time, oriented to situation, CN II-XII grossly intact. ABSENT: motor sensory deficit Psychiatric exam: PRESENT: appropriate affect, normal mood. ABSENT: homicidal ideation, suicidal ideation Skin exam: PRESENT: dry, intact, warm. ABSENT: cyanosis, rash Results Laboratory Results: 08/01/19 04:34 08/01/19 04:34 08/01/19 08/01/19 04:34 04:34 WBC 4.3 RBC 3.15 L Hgb 9.6 L Hct 29.1 L MCV 92 MCH 30.6 MCHC 33.1 RDW 15.3 H Plt Count 114 L Seg Neutrophils % 76.0 Sodium 134.1 L Potassium 4.1 Chloride 94 L Carbon Dioxide 29 Anion Gap 11 BUN 63 H Creatinine 2.69 H Est GFR ( Amer) 21 L Glucose 184 H Calcium 8.4 07/29/19 07/30/19 17:20 05:57 Troponin I < 0.012 NT-Pro-B Natriuret Pep 4770 H 4600 H Impressions: Chest X-Ray 07/29/19 14:58 IMPRESSION: Cardiomegaly with pulmonary vascular congestion. No jad pulmonary edema. Qualifiers - * PATIENT BEING DISCHARGED WITH ANY OF THE FOLLOWING DIAGNOSIS: No Acute Heart Failure - Is this a Heart Failure Patient?: No Plan Time Spent: Greater than 30 Minutes
[2019-08-01] MEDS: INSULIN REG, HUMAN 100 UNIT/ML 3 ML VIAL (PYX) SUBCUT SCH (09:08)
[2019-08-01 09:15] VITALS: BP 148/57
== END 2019-08-01 09:41 | disposition home or self-care (01) | DRG 291 ==
LOC: ER 14:03 → EH 18:29 → 3S 07-30 00:20
PROVIDERS: ADMIT Hospitalist; ATTEND Hospitalist
DX: I13.2 Hypertensive heart and chronic kidney disease with heart failure and with stage 5 chronic kidney disease, or end stage renal disease (principal); I50.33 Acute on chronic diastolic (congestive) heart failure; N18.6 End stage renal disease; J44.1 Chronic obstructive pulmonary disease with (acute) exacerbation; N17.9 Acute kidney failure, unspecified; Z68.41 Body mass index [BMI] 40.0-44.9, adult; I25.10 Atherosclerotic heart disease of native coronary artery without angina pectoris; D63.1 Anemia in chronic kidney disease; E11.22 Type 2 diabetes mellitus with diabetic chronic kidney disease; F31.9 Bipolar disorder, unspecified; M19.90 Unspecified osteoarthritis, unspecified site; E66.9 Obesity, unspecified; Z79.4 Long term (current) use of insulin; Z95.1 Presence of aortocoronary bypass graft; I25.2 Old myocardial infarction; Z79.899 Other long term (current) drug therapy; Z88.0 Allergy status to penicillin; Z88.8 Allergy status to other drugs, medicaments and biological substances; Z79.51 Long term (current) use of inhaled steroids; Z86.73 Personal history of transient ischemic attack (TIA), and cerebral infarction without residual deficits; Z98.84 Bariatric surgery status; Z90.710 Acquired absence of both cervix and uterus; Z79.02 Long term (current) use of antithrombotics/antiplatelets; Z83.3 Family history of diabetes mellitus; Z84.1 Family history of disorders of kidney and ureter; Z80.9 Family history of malignant neoplasm, unspecified; Z82.49 Family history of ischemic heart disease and other diseases of the circulatory system; Z79.82 Long term (current) use of aspirin
CPT/HCPCS: 36415; 71045; 80048; 80053; 82962; 83735; 83880; 84100; 84484; 85025; 85610; 85730; 87040; 93005; 93010; 94640; 94660; 96374; 99285; J1644; J1815; J1940; J1956; J2405; J2920; J3490; J7512; J7620

== ENCOUNTER → 2019-09-24 | Outpatient (CLI) | payer MEDICARE, MEDICAID ==
[2019-09-24 13:13] LABS: ABSOLUTE EOSINOPHILS # (AUTO) 0.2 10^3/uL (0.0-0.6); ABSOLUTE MONOCYTES (AUTO) 0.4 10^3/uL (0.1-1.4); ABSOLUTE NEUT (AUTO) 3.2 10^3/uL (1.7-8.2); BASOPHILS % (AUTO) 0.6 % (0-2); EOSINOPHILS % (AUTO) 5.1 % (0-6); HEMOGLOBIN 8.9 g/dL (12.0-15.5); LYMPHOCYTES % (AUTO) 19.8 % (13-45); MEAN CORPUSCULAR HEMOGLOBIN 30.6 pg (27.0-33.4); MEAN CORPUSCULAR VOLUME 93 fl (80-97); MONOCYTES % (AUTO) 7.6 % (3-13); RED BLOOD COUNT 2.91 10^6/uL (3.72-5.28); RED CELL DISTRIBUTION WIDTH 14.8 % (11.5-14.0); SEGMENTED NEUTROPHILS % (AUTO) 66.9 % (42-78); TOTAL CELLS COUNTED % (AUTO) 100 %; WHITE BLOOD COUNT 4.8 10^3/uL (4.0-10.5)
[2019-09-24 13:31] LABS: ANION GAP 7 (5-19); BLOOD UREA NITROGEN 55 mg/dL (7-20); CALCIUM 8.4 mg/dL (8.4-10.2); CARBON DIOXIDE 24 mmol/L (22-30); CHLORIDE 110 mmol/L (98-107); GLUCOSE 48 mg/dL (75-110); IRON(TIBC) 99.7 ug/dL (37-170); POTASSIUM 5.5 mmol/L (3.6-5.0)
[2019-09-24 13:54] LABS: PLATELET COUNT 96 10^3/uL (150-450)
[2019-09-25 09:14] LABS: APPEARANCE,URINE CLEAR; BILIRUBIN,URINE NEGATIVE (NEGATIVE); COLOR,URINE YELLOW; GLUCOSE, URINE NEGATIVE (NEGATIVE); KETONES,URINE NEGATIVE (NEGATIVE); LEUKOCYTE ESTERASE,URINE SMALL (NEGATIVE); NITRITE,URINE NEGATIVE (NEGATIVE); PROTEIN,URINE 30 mg/dL (NEGATIVE); URINE SPECIFIC GRAVITY 1.015; UROBILINOGEN,URINE NEGATIVE mg/dL (<2.0)
[2019-09-26 13:37] LABS: CREATININE URINE 65.2 mg/dL (Not Estab.); MICROALBUMIN URINE 221.6 ug/mL (Not Estab.)
== END ==
LOC: OD 12:38
PROVIDERS: ATTEND Internal Medicine Nephrology
DX: I12.9 Hypertensive chronic kidney disease with stage 1 through stage 4 chronic kidney disease, or unspecified chronic kidney disease (principal); N18.4 Chronic kidney disease, stage 4 (severe); E11.22 Type 2 diabetes mellitus with diabetic chronic kidney disease; D63.1 Anemia in chronic kidney disease; E55.9 Vitamin D deficiency, unspecified; N25.81 Secondary hyperparathyroidism of renal origin
CPT/HCPCS: 36415; 80048; 81001; 82043; 82306; 82570; 82728; 83540; 83550; 83970; 85025

== ENCOUNTER → 2019-09-28 | Outpatient (CLI) | payer MEDICARE, MEDICAID | LOC: OD 14:08 | PROVIDERS: ATTEND Internal Medicine Nephrology | DX: E87.5 Hyperkalemia (principal) | CPT/HCPCS: 36415; 84132 ==

== ENCOUNTER → 2019-09-28 | Outpatient (CLI) | payer MEDICARE, MEDICAID ==
--- NOTE | 2019-09-28 18:22 | RADIOLOGY REPORT (SQ) ---
EXAM DESCRIPTION: CHEST PA/LATERAL COMPLETED DATE/TIME: 09/28/2019 5:38 pm REASON FOR STUDY: COPD WITH EXACERBATION COMPARISON: 07/29/2019 EXAM PARAMETERS: NUMBER OF VIEWS: two views TECHNIQUE: Digital Frontal and Lateral radiographic views of the chest acquired. RADIATION DOSE: NA LIMITATIONS: none FINDINGS: LUNGS AND PLEURA: No opacities, masses or pneumothorax. No pleural effusion. MEDIASTINUM AND HILAR STRUCTURES: No masses or contour abnormalities. HEART AND VASCULAR STRUCTURES: Heart size is borderline. Cannot exclude mild pulmonary edema. BONES: No acute findings. HARDWARE: Sternotomy wires. Graft marker. OTHER: No other significant finding. IMPRESSION: Borderline cardiomegaly. Cannot exclude mild pulmonary edema. TECHNICAL DOCUMENTATION: JOB ID: [id number] [employer]- All Rights Reserved Reading location - IP/workstation name: [email or web address]
== END ==
LOC: OD 16:38
PROVIDERS: ATTEND Family Medicine
DX: J44.1 Chronic obstructive pulmonary disease with (acute) exacerbation (principal)
CPT/HCPCS: 71046

== ENCOUNTER → 2019-10-01 | Outpatient (CLI) | payer MEDICARE, MEDICAID | LOC: OD 13:50 | PROVIDERS: ATTEND Internal Medicine Nephrology | DX: E87.5 Hyperkalemia (principal) | CPT/HCPCS: 36415; 84132 ==

== ENCOUNTER 2019-10-06 11:34 | Inpatient (IN) | payer MEDICARE, MEDICAID ==
[2019-10-06] MEDS ORDERED: ASPIRIN 81 MG TABLET, CHEWABLE PO ONE (11:46)
--- NOTE | 2019-10-06 11:48 | ER Document Report ---
ED Medical Screen (RME) - General Chief Complaint: CHF Exacerbation Stated Complaint: WEAKNESS Time Seen by Provider: 10/06/19 11:42 Primary Care Provider: CARLOS LARSON MD [Primary Care Provider] - Follow up as needed Mode of Arrival: Wheelchair Information source: Patient Notes: Patient presents complaining of CHF exacerbation. Patient was sent here from her doctor's office. Patient reports a 30 pound weight gain in the past week. Patient denies any fever. Patient does report chest pain that she has had for several weeks now. hx: CHF, COPD, diabetes, asthma, hypertension I have greeted and performed a rapid initial assessment of this patient. A comprehensive ED assessment and evaluation of the patient, analysis of test results and completion of the medical decision making process will be conducted by additional ED providers. TRAVEL OUTSIDE OF THE [place] IN LAST 30 DAYS: No - Related Data Allergies/Adverse Reactions: amoxicillin trihydrate [From Augmentin] Allergy (Severe, Verified 04/29/19 17:21) stomach cramps, n and v, rash butalbital [From Fiorinal] Allergy (Unknown, Verified 04/29/19 17:21) rash metformin HCl [From Glucophage] Allergy (Unknown, Verified 04/29/19 17:21) rash Potassium Clavulanate * [From Augmentin] Adverse Reaction (Unknown, Verified 04/29/19 17:21) nausea, vomit, epig pain Past Medical History - Past Medical History Cardiac Medical History: Reports: Hx Congestive Heart Failure, Hx Coronary Artery Disease - CABG in 2001, Hx Heart Attack, Hx Hypercholesterolemia, Hx Hypertension Denies: Hx Atrial Fibrillation, Hx DVT, Hx Pulmonary Embolism Pulmonary Medical History: Reports: Hx Asthma, Hx Bronchitis, Hx COPD, Hx Pneumonia, Hx Respiratory Failure, Hx Sleep Apnea - no cpap insurance does not cover Denies: Hx Tuberculosis Neurological Medical History: Reports: Hx Cerebrovascular Accident - X4. Denies: Hx Seizures, Hx Parkinson's Disease Endocrine Medical History: Reports: Hx Diabetes Mellitus Type 2. Denies: Hx Diabetes Mellitus Type 1, Hx Hyperthyroidism, Hx Hypothyroidism Renal/ Medical History: Reports: Hx End Stage Renal Disease, Hx Kidney Stones. Denies: Hx Peritoneal Dialysis GI Medical History: Reports: Hx Ulcer. Denies: Hx Cirrhosis, Hx Gastroesophageal Reflux Disease, Hx Hepatitis, Hx Pancreatitis Musculoskeltal Medical History: Reports Hx Arthritis, Denies Hx Gout, Denies Hx Multiple Sclerosis, Denies Hx Systemic Lupus Erythematosus Skin Medical History: Denies Hx Eczema, Denies Hx Psoriasis Psychiatric Medical History: Reports: Hx Depression Denies: Hx Bipolar Disorder, Hx Schizophrenia Infectious Medical History: Denies: Hx Hepatitis Past Surgical History: Reports: Hx Cardiac Catheterization, Hx Section, Hx Cholecystectomy, Hx Coronary Stent, Hx Gastric Bypass Surgery - 2001, Hx Gynecologic Surgery, Hx Hysterectomy, Hx Open Heart Surgery - 2001 TRIPLE BYPASS, Hx Rectal Surgery, Hx Tubal Ligation - Immunizations Hx Diphtheria, Pertussis, Tetanus Vaccination: No Physical Exam - Vital signs Vitals: Temp Pulse Resp BP Pulse Ox 97.8 F 50 L 18 113/96 H 100 10/06/19 11:42 10/06/19 11:42 10/06/19 11:42 10/06/19 11:42 10/06/19 11:42 - Respiratory Respiratory status: No respiratory distress Breath sounds: Nonproductive cough, Rales Course - Vital Signs Vital signs: Temp Pulse Resp BP Pulse Ox 97.8 F 50 L 18 113/96 H 100 10/06/19 11:42 10/06/19 11:42 10/06/19 11:42 10/06/19 11:42 10/06/19 11:42 Doctor's Discharge - Discharge Referrals: CARLOS LARSON MD [Primary Care Provider] - Follow up as needed
[2019-10-06] MEDS ORDERED: IPRATROPIUM/ALBUTEROL 0.5-2.5 MG/3 ML AMPUL NEB ONE (12:12)
--- NOTE | 2019-10-06 12:16 | ER Document Report ---
ED Respiratory Problem - General Chief Complaint: Shortness Of Breath Stated Complaint: WEAKNESS Time Seen by Provider: 10/06/19 11:42 Primary Care Provider: CARLOS LARSON MD [Primary Care Provider] - Follow up as needed Mode of Arrival: Wheelchair Notes: 74-year-old female presents to the ER with 2 weeks of worsening shortness of breath. The patient saw her primary care doctor today in the office who sent her here to the hospital for admission. The patient has gained 3 pounds over the last 2 weeks. She has been on a Z-Matt for bronchitis. She had fever and chills about a week ago but that is gone. Patient is has noticed more extremity swelling. More problems laying flat. The patient stated she is concerned she is having fluid buildup. The patient takes Bumex for her diuretic and states she has not been urinating as much as she would like. Patient denies any sore throat has had a nonproductive cough. TRAVEL OUTSIDE OF THE [place] IN LAST 30 DAYS: No - Related Data Allergies/Adverse Reactions: amoxicillin trihydrate [From Augmentin] Allergy (Severe, Verified 04/29/19 17:21) stomach cramps, n and v, rash butalbital [From Fiorinal] Allergy (Unknown, Verified 04/29/19 17:21) rash metformin HCl [From Glucophage] Allergy (Unknown, Verified 04/29/19 17:21) rash Potassium Clavulanate * [From Augmentin] Adverse Reaction (Unknown, Verified 04/29/19 17:21) nausea, vomit, epig pain Past Medical History - General Information source: Patient - Social History Smoking Status: Never Smoker Chew tobacco use (# tins/day): No Frequency of alcohol use: None Drug Abuse: None Family History: CAD, COPD, DM, Hypertension, Malignancy, Other - Kidney disease Patient has suicidal ideation: No Patient has homicidal ideation: No - Past Medical History Cardiac Medical History: Reports: Hx Congestive Heart Failure, Hx Coronary Artery Disease - CABG in 2001, Hx Heart Attack, Hx Hypercholesterolemia, Hx Hypertension Denies: Hx Atrial Fibrillation, Hx DVT, Hx Pulmonary Embolism Pulmonary Medical History: Reports: Hx Asthma, Hx Bronchitis, Hx COPD, Hx Pneumonia, Hx Respiratory Failure, Hx Sleep Apnea - no cpap insurance does not cover Denies: Hx Tuberculosis Neurological Medical History: Reports: Hx Cerebrovascular Accident - X4. Denies: Hx Seizures, Hx Parkinson's Disease Endocrine Medical History: Reports: Hx Diabetes Mellitus Type 2. Denies: Hx Diabetes Mellitus Type 1, Hx Hyperthyroidism, Hx Hypothyroidism Renal/ Medical History: Reports: Hx End Stage Renal Disease, Hx Kidney Stones. Denies: Hx Peritoneal Dialysis GI Medical History: Reports: Hx Ulcer. Denies: Hx Cirrhosis, Hx Gastroesophageal Reflux Disease, Hx Hepatitis, Hx Pancreatitis Musculoskeletal Medical History: Reports Hx Arthritis, Denies Hx Gout, Denies Hx Multiple Sclerosis, Denies Hx Systemic Lupus Erythematosus Skin Medical History: Denies Hx Eczema, Denies Hx Psoriasis Psychiatric Medical History: Reports: Hx Depression Denies: Hx Bipolar Disorder, Hx Schizophrenia Infectious Medical History: Denies: Hx Hepatitis Past Surgical History: Reports: Hx Cardiac Catheterization, Hx Section, Hx Cholecystectomy, Hx Coronary Stent, Hx Gastric Bypass Surgery - 2001, Hx Gynecologic Surgery, Hx Hysterectomy, Hx Open Heart Surgery - 2001 TRIPLE BYPASS, Hx Rectal Surgery, Hx Tubal Ligation - Immunizations Hx Diphtheria, Pertussis, Tetanus Vaccination: No Hx Pneumococcal Vaccination: 11/11/14 Review of Systems - Review of Systems Constitutional: Chills, Fever EENT: Nose congestion Respiratory: Cough, Short of breath, Wheezing. denies: Hurts to breathe, Hemoptysis -: Yes All other systems reviewed and negative Physical Exam - Vital signs Vitals: Temp Pulse Resp BP Pulse Ox 97.8 F 50 L 18 113/96 H 100 10/06/19 11:42 10/06/19 11:42 10/06/19 11:42 10/06/19 11:42 10/06/19 11:42 - Notes Notes: GENERAL_APPEARANCE: well_nourished, alert, cooperative, noticeable short of breath VITALS: reviewed, see vital signs table. HEAD: no_swelling\tenderness on the head. EYES: PERRL, EOMI, conjunctiva_clear. NOSE: no_nasal_discharge. MOUTH: (-)decreased moisture. THROAT: no_tonsilar_inflammation, no_airway_obstruction. no_lymphadenopathy NECK: supple, no_neck_tenderness, (-)thyromegaly. BACK: no_back_tenderness. CHEST_WALL: no_chest_tenderness. LUNGS: Scant_wheezing, basilar crackles, no_rhonchi, (-)accessory muscle use, good air exchange bilateral. HEART: normal_rate, normal_rhythm, normal_S1, normal_S2, (-)S3, (-)S4, no_murmur, no_rub. ABDOMEN: normal_BS, soft, no_abd_tenderness, (-)guarding, (-)rebound, no_orga nomegaly, no_abd_masses. EXTREMITIES: good pulses in all_extremities, no_swelling\tenderness in the extremities, plus pedal_edema. SKIN: warm, dry, good_color, no_rash. MENTAL_STATUS: speech_clear, oriented_X_3, normal_affect, responds_appropriately to questions. Course - Re-evaluation Re-evalutation: 10/06/19 12:15 74-year-old female with history of CHF and COPD mixed disorders presents with difficulty breathing. Patient reports a 3 pound weight gain in the last 2 weeks. She reports extremity swelling. She also just finished a Z-Matt for bronchitis. She states all her infectious symptoms have gone away with that but she continues to have difficulty breathing she takes Bumex for diuretic and is feels as if she is not urinating as much as she would like. She saw her family doctor today who sent her here for admission. - Vital Signs Vital signs: Temp Pulse Resp BP Pulse Ox 97.8 F 50 L 12 113/96 H 100 10/06/19 11:42 10/06/19 11:42 10/06/19 14:00 10/06/19 11:42 10/06/19 14:00 - Laboratory Result Diagrams: 10/06/19 12:23 10/06/19 12:23 Laboratory results interpreted by me: 10/06/19 10/06/19 10/06/19 12:23 12:23 12:23 RBC 2.68 L Hgb 8.4 L Hct 25.9 L RDW 16.5 H Plt Count 102 L Potassium 5.2 H Chloride 111 H Carbon Dioxide 19 L BUN 81 H Creatinine 3.71 H Est GFR ( Amer) 15 L Est GFR (MDRD) Non-Af 12 L Lactic Acid (Sepsis) Calcium 7.8 L NT-Pro-B Natriuret Pep 6270 H Total Protein 6.2 L Albumin 3.3 L 10/06/19 12:23 RBC Hgb Hct RDW Plt Count Potassium Chloride Carbon Dioxide BUN Creatinine Est GFR ( Amer) Est GFR (MDRD) Non-Af Lactic Acid (Sepsis) 0.5 L Calcium NT-Pro-B Natriuret Pep Total Protein Albumin - Diagnostic Test Radiology reviewed: Reports reviewed Radiology results interpreted by me: 10/06/19 14:36 Chest X-Ray 10/06/19 11:47 IMPRESSION: No acute findings - EKG Interpretation by Me Rate: Bradycardia Rhythm: Other - Junctionallikely slow A. fib When compared to previous EKG there are: No significant change Discharge - Discharge Clinical Impression: Hyperkalemia, COPD exacerbation, Anemia of chronic renal failure, stage 3 (moderate) Acute renal failure superimposed on stage 3 chronic kidney disease Qualifiers: Acute renal failure type: unspecified Qualified Code(s): N17.9 - Acute kidney failure, unspecified; N18.3 - Chronic kidney disease, stage 3 (moderate) Condition: Good Disposition: ADMITTED OBSERVATION Admitting Provider: Eduardo (Hospitalist) Unit Admitted: Telemetry Referrals: CARLOS LARSON MD [Primary Care Provider] - Follow up as needed
[2019-10-06 12:38] LABS: ABSOLUTE EOSINOPHILS # (AUTO) 0.4 10^3/uL (0.0-0.6); ABSOLUTE MONOCYTES (AUTO) 0.4 10^3/uL (0.1-1.4); ABSOLUTE NEUT (AUTO) 4.5 10^3/uL (1.7-8.2); BASOPHILS % (AUTO) 0.3 % (0-2); EOSINOPHILS % (AUTO) 5.7 % (0-6); HEMATOCRIT 25.9 % (36.0-47.0); HEMOGLOBIN 8.4 g/dL (12.0-15.5); LYMPHOCYTES % (AUTO) 16.3 % (13-45); MEAN CORPUSCULAR HEMOGLOBIN 31.3 pg (27.0-33.4); MEAN CORPUSCULAR HGB CONC 32.4 g/dL (32.0-36.0); MONOCYTES % (AUTO) 6.7 % (3-13); PLATELET COUNT 102 10^3/uL (150-450); RED BLOOD COUNT 2.68 10^6/uL (3.72-5.28); RED CELL DISTRIBUTION WIDTH 16.5 % (11.5-14.0); TOTAL CELLS COUNTED % (AUTO) 100 %; WHITE BLOOD COUNT 6.4 10^3/uL (4.0-10.5)
[2019-10-06 12:47] LABS: MEAN CORPUSCULAR VOLUME 97 fl (80-97)
[2019-10-06 13:05] LABS: ALBUMIN 3.3 g/dL (3.5-5.0); ALKALINE PHOSPHATASE 49 U/L (38-126); ANION GAP 9 (5-19); ASPARTATE AMINO TRANSFERASE 24 U/L (14-36); BILIRUBIN,DIRECT 0.2 mg/dL (0.0-0.4); BILIRUBIN,TOTAL 0.5 mg/dL (0.2-1.3); BLOOD UREA NITROGEN 81 mg/dL (7-20); CALCIUM 7.8 mg/dL (8.4-10.2); CARBON DIOXIDE 19 mmol/L (22-30); CHLORIDE 111 mmol/L (98-107); GLUCOSE 76 mg/dL (75-110); POTASSIUM 5.2 mmol/L (3.6-5.0); TOTAL PROTEIN 6.2 g/dL (6.3-8.2)
[2019-10-06 13:15] LABS: TROPONIN I 0.02 ng/mL
--- NOTE | 2019-10-06 13:18 | RADIOLOGY REPORT (SQ) ---
EXAM DESCRIPTION: CHEST SINGLE VIEW COMPLETED DATE/TIME: 10/06/2019 1:09 pm REASON FOR STUDY: cp, sob, hx CHF COMPARISON: Chest films 04/06/2019, 04/29/2019, 07/29/2019, 09/28/2019 EXAM PARAMETERS: NUMBER OF VIEWS: One view. TECHNIQUE: Single frontal radiographic view of the chest acquired. RADIATION DOSE: NA LIMITATIONS: None. FINDINGS: LUNGS AND PLEURA: Chronic blunting left lateral costophrenic sulcus with bandlike scarring in the periphery of the left lung. This is similar over the series of exams. No acute infiltrates. No pleural effusion. No pneumothorax. MEDIASTINUM AND HILAR STRUCTURES: No masses. Contour normal. HEART AND VASCULAR STRUCTURES: Stable marked cardiomegaly, old sternotomy for CABG BONES: No acute findings. HARDWARE: None in the chest. OTHER: No other significant finding. IMPRESSION: No acute findings TECHNICAL DOCUMENTATION: JOB ID: [id number] [employer]- All Rights Reserved Reading location - IP/workstation name: [email or web address]
[2019-10-06] MEDS ORDERED: SODIUM POLYSTYRENE SULFONATE 15 GM/60 ML PO ONE (14:46)
[2019-10-06] MEDS ORDERED: NITROGLYCERIN 0.4 MG/TAB 25 TAB/BOTTLE SL PRN (17:08)
[2019-10-06] MEDS ORDERED: (PENDING PHARMACY ID) (Loperamide Hcl [Imodium A-D] 2 MG) PO PRN (17:08)
[2019-10-06] MEDS ORDERED: OXYCODONE-ACETAMINOPHEN 5-325 MG TABLET PO PRN (17:08)
[2019-10-06] MEDS ORDERED: HYDROXYZINE PAMOATE 50 MG CAPSULE PO PRN (17:08)
[2019-10-06] MEDS ORDERED: GLUCAGON,HUMAN RECOMB 1 MG INJ IM PRN (17:20)
[2019-10-06] MEDS ORDERED: DEXTROSE 40% GEL 15 GM TUBE PO PRN ×2 (17:20)
[2019-10-06] MEDS ORDERED: DEXTROSE 50%-WATER 25 GM/50 ML DISP.SYRIN IV PRN ×2 (17:20)
[2019-10-06] MEDS ORDERED: LEVALBUTEROL HCL NEB 1.25 MG/3 ML AMPUL NEB PRN (17:21)
[2019-10-06] MEDS ORDERED: PHARMACY COMMUNICATION ORDER MC NR ×2 (17:30→18:30)
[2019-10-06] MEDS ORDERED: LOPERAMIDE HCL 2 MG CAPSULE PO PRN (17:46)
--- NOTE | 2019-10-06 17:50 | PDOC H&P ---
History of Present Illness Admission Date/PCP: 10/06/19 14:55 CARLOS SERRA MD Patient complains of: Increased shortness of breath History of Present Illness: PRECIOUS BURCH is a 74 year old female with a very complex past medical history including grade 2/4 diastolic heart failure, chronic obstructive pulmonary disease, chronic renal failure as well as diabetes mellitus type 2. Approximately 3 weeks ago she saw her primary care provider, Dr. Wilson, for breathing difficulties. Chest x-ray did not reveal pneumonia and a Z-Matt and prednisone were given for bronchitis. The patient finished the course of medications and felt somewhat better temporarily and then she noticed that her breathing was slowly getting worse. Over the last several days especially she has had a nonproductive cough. She thinks that she had a fever last week. She has also noticed mucus from her nose (rhinorrhea). Other symptoms include postnasal drip and a sense of fullness in her ears. She also complains of a sore throat. Her oxygen saturation has been normal on her baseline 2.5 L/min nasal cannula. Her work-up in the emergency department revealed acute on chronic kidney failure, and elevated brain natruretic peptide as well as shortness of breath. She is normally on 2.5 L by nasal cannula oxygen at home and has normal pulse oximetry on the same amount of oxygen in the emergency department. She was referred to the hospital service for admission. Past Medical History Cardiac Medical History: Reports: Congestive Heart Failure, Coronary Artery Disease - CABG in 2001, Myocardial Infarction, Hyperlipidema, Hypertension Denies: Atrial Fibrillation, DVT, Pulmonary Embolism Pulmonary Medical History: Reports: Asthma, Bronchitis, Chronic Obstructive Pulmonary Disease (COPD), Pneumonia, Respiratory Failure, Sleep Apnea - no cpap insurance does not cover Denies: Tuberculosis Neurological Medical History: Denies: Seizures Endocrine Medical History: Reports: Diabetes Mellitus Type 2 Denies: Diabetes Mellitus Type 1, Hyperthyroidism, Hypothyroidism Renal/ Medical History: Reports: End Stage Renal Disease GI Medical History: Denies: Cirrhosis, Gastroesophageal Reflux Disease, Hepatitis Musculoskeltal Medical History: Reports: Arthritis Denies: Gout Skin Medical History: Denies: Eczema, Psoriasis Psychiatric Medical History: Reports: Depression Denies: Bipolar Disorder Hematology: Reports: Anemia, Bleeding Tendencies Denies: Hemophilia, Sickle Cell Disease Past Surgical History Past Surgical History: Reports: Cardiac Catheterization, Section, Cholecystectomy, Coronary Stent, Gastric Bypass Surgery - 2001, Hysterectomy, Tubal Ligation Denies: Amputation Social History Information Source: Patient, Relative - Lives with: Spouse/Significant other Smoking Status: Former Smoker - Quit 22 years ago Electronic Cigarette use?: No Frequency of Alcohol Use: None Hx Recreational Drug Use: No Drugs: None Hx Prescription Drug Abuse: No - Advance Directive Resuscitation Status: Do Not Resuscitate Family History Family History: CAD, COPD, DM, Hypertension, Malignancy, Other - Kidney disease Parental Family History Reviewed: Yes Children Family History Reviewed: Yes Sibling(s) Family History Reviewed.: Yes Medication/Allergy Home Medications: Albuterol Sulfate [Proair HFA Inhalation Aerosol 8.5 gm MDI] 2 puff IH DAILY 07/29/19 Albuterol Sulfate [Ventolin 0.083% Neb 2.5 mg/3 mL Ampul] 3 ml NEB Q6HP PRN 07/29/19 Amlodipine Besylate [Norvasc 2.5 mg Tablet] 2.5 mg PO Q12 07/29/19 Aspirin [Aspirin 81 mg Chewable Tablet] 81 mg PO DAILY 07/29/19 Calcitriol [Rocaltrol 0.25 mcg Capsule] 0.25 mcg PO MOWEFR@1000 07/29/19 Clopidogrel Bisulfate [Plavix 75 mg Tablet] 75 mg PO DAILY 07/29/19 Diazepam [Valium 5 mg Tablet] 5 mg PO DAILY 07/29/19 Diphenhydramine HCl [Diphenhist] 25 mg PO Q6 07/29/19 Docusate Sodium [Colace 100 mg Capsule] 100 mg PO DAILY 07/29/19 Epoetin Aung [Procrit Inj 20,000 Unit/1 ml Vial (Renal)] 10,000 unit IM Q7D 07/29/19 Ergocalciferol (Vitamin D2) [Drisdol 50,000 unit (1.25MG) Capsule] 50,000 unit PO BALDERRAMA@1000 07/29/19 Fenofibrate 160 mg PO DAILY 07/29/19 Fluticasone/Salmeterol [Advair 250-50 Diskus 14 Dose/Diskus] 1 puff IH Q12 07/29/19 Gabapentin [Neurontin] 600 mg PO Q12 07/29/19 Hydroxyzine Pamoate [Vistaril 50 mg Capsule] 50 mg PO TIDP PRN 07/29/19 Insulin Glargine,Hum.rec.anlog [Basaglar Kwikpen U-100] 50 units SQ Q12 07/29/19 Iron Ps Complex/B12/Folic Acid [Ferrex 150 Forte Capsule] 1 cap PO DAILY 07/29/19 Isosorbide Mononitrate [Imdur 60 mg Tablet.er] 60 mg PO DAILY 07/29/19 Linaclotide [Linzess] 72 mcg PO DAILY 07/29/19 Loperamide HCl [Imodium A-D] 2 mg PO DAILYP PRN 07/29/19 Loratadine [Claritin 10 mg Tablet] 10 mg PO DAILY 07/29/19 Melatonin 5 mg SL QHS 07/29/19 Metoprolol Succinate [Toprol Xl 25 mg Tab.sr] 25 mg PO DAILY 07/29/19 Montelukast Sodium [Singulair 10 mg Tablet] 10 mg PO DAILY 07/29/19 Nitroglycerin 0.4 mg SL Q5HP PRN 07/29/19 Omeprazole 40 mg PO BID 07/29/19 Ondansetron HCl [Zofran 4 mg Tablet] 4 mg PO DAILY 07/29/19 Oxycodone HCl/Acetaminophen [Percocet 5-325 mg Tablet] 1 tab PO Q6HP PRN 07/29/19 Patiromer Calcium Sorbitex [Veltassa] 16.8 gm PO DAILY 07/29/19 Polyvinyl Alcohol [Artificial Tears] 1 drop OU Q2HP PRN 07/29/19 Promethazine HCl [Phenergan 25 mg Tablet] 25 mg PO QHS 07/29/19 Rosuvastatin Calcium [Crestor] 40 mg PO QHS 07/29/19 Sitagliptin Phosphate [Januvia] 100 mg PO DAILY 07/29/19 Telmisartan [Micardis 20 mg Tablet] 20 mg PO DAILY 07/29/19 Tiotropium [place] [Spiriva Handihaler 5 Cap/Kit (18 Mcg/Cap)] 1 puff IH DAILY 07/29/19 Furosemide [Lasix 40 mg Tablet] 40 mg PO DAILY 10/06/19 Allergies/Adverse Reactions: amoxicillin trihydrate [From Augmentin] Allergy (Severe, Verified 04/29/19 17:21) stomach cramps, n and v, rash butalbital [From Fiorinal] Allergy (Unknown, Verified 04/29/19 17:21) rash metformin HCl [From Glucophage] Allergy (Unknown, Verified 04/29/19 17:21) rash Potassium Clavulanate * [From Augmentin] Adverse Reaction (Unknown, Verified 04/29/19 17:21) nausea, vomit, epig pain Review of Systems Constitutional: PRESENT: as per HPI, fatigue, fever(s). ABSENT: night sweats Eyes: ABSENT: visual disturbances - She does wear glasses Ears: ABSENT: hearing changes Nose, Mouth, and Throat: PRESENT: sore throat. ABSENT: headache(s), mouth pain Cardiovascular: PRESENT: dyspnea on exertion, edema. ABSENT: chest pain, palpitations Respiratory: PRESENT: cough, dyspnea. ABSENT: hemoptysis, sputum Gastrointestinal: PRESENT: constipation, diarrhea - Currently with diarrhea but chronic constipation is also an issue. ABSENT: nausea, vomiting Genitourinary: PRESENT: dysuria - On occasion Musculoskeletal: PRESENT: back pain - Chronic Integumentary: PRESENT: pruritus - Right leg Neurological: ABSENT: abnormal speech, memory loss, syncope, vertigo Psychiatric: ABSENT: anxiety, depression Endocrine: ABSENT: cold intolerance, heat intolerance, polydipsia, polyuria Hematologic/Lymphatic: ABSENT: easy bleeding, easy bruising Allergic/Immunologic: PRESENT: seasonal rhinorrhea - Possibly Physical Exam Vital Signs: Temp Pulse Resp BP Pulse Ox 97.8 F 50 L 12 101/89 H 100 10/06/19 17:25 10/06/19 11:42 10/06/19 17:01 10/06/19 17:02 10/06/19 17:02 Intake & Output 10/05/19 10/06/19 10/07/19 06:59 06:59 06:59 Weight 98.6 kg General appearance: PRESENT: cooperative, mild distress, morbidly obese, well-developed Head exam: PRESENT: atraumatic, normocephalic Eye exam: PRESENT: conjunctiva pale, EOMI, other - Wearing glasses. ABSENT: scleral icterus Ear exam: PRESENT: normal external ear exam. ABSENT: bleeding, drainage Mouth exam: PRESENT: dry mucosa, tongue midline Teeth exam: PRESENT: poor dentation Neck exam: PRESENT: lymphadenopathy - Nontender palpable lymph node right submandibular area. ABSENT: carotid bruit, tenderness, tracheostomy Respiratory exam: PRESENT: rales - Bilateral bases, symmetrical, unlabored. AB SENT: accessory muscle use, rhonchi, tachypnea, wheezes Cardiovascular exam: PRESENT: RRR, +S1, +S2, systolic murmur - 2/6 Pulses: PRESENT: +1 pedal pulses bilateral GI/Abdominal exam: PRESENT: normal bowel sounds, soft, other - Protuberant abdomen. ABSENT: guarding, tenderness Rectal exam: PRESENT: deferred Gentrourinary exam: ABSENT: indwelling catheter Extremities exam: PRESENT: pedal edema, +1 edema - Right leg Musculoskeletal exam: PRESENT: ambulatory, normal inspection. ABSENT: tenderness Neurological exam: PRESENT: alert, awake, oriented to person, oriented to place, oriented to time, oriented to situation, CN II-XII grossly intact, motor sensory deficit - Bilateral foot numbness Psychiatric exam: PRESENT: flat affect. ABSENT: agitated, anxious Focused psych exam: ABSENT: delusional, restlessness Skin exam: PRESENT: dry, normal color, warm, other - Excoriations right lower leg Results Laboratory Results: 10/06/19 12:23 10/06/19 12:23 10/06/19 10/06/19 12:23 12:23 WBC 6.4 RBC 2.68 L Hgb 8.4 L Hct 25.9 L MCV 97 D MCH 31.3 MCHC 32.4 RDW 16.5 H Plt Count 102 L Seg Neutrophils % 71.0 Sodium 138.5 Potassium 5.2 H Chloride 111 H Carbon Dioxide 19 L Anion Gap 9 BUN 81 H Creatinine 3.71 H Est GFR ( Amer) 15 L Glucose 76 Calcium 7.8 L Total Bilirubin 0.5 AST 24 Alkaline Phosphatase 49 Total Protein 6.2 L Albumin 3.3 L 10/06/19 12:23 Troponin I 0.020 NT-Pro-B Natriuret Pep 6270 H Impressions: Chest X-Ray 10/06/19 11:47 IMPRESSION: No acute findings Assessment and Plan - Diagnosis (1) Acute worsening of stage 4 chronic kidney disease Is this a current diagnosis for this admission?: Yes Plan: 10/06/2019-acute worsening of her kidney disease. This is likely due to her congestive heart failure. Will monitor intake and output closely. She does see Dr. Serra for her kidney disease. If indicated I will consult nephrology. (2) Acute on chronic diastolic (congestive) heart failure Is this a current diagnosis for this admission?: Yes Plan: 10/06/2019-the patient has a history of 2/4 diastolic heart failure from an echocardiogram in January 2019. At that time ejection fraction was normal. We will continue to monitor intake and output and continue current medication regimen including low-dose furosemide. We may need to institute fluid restriction. (3) Anemia of chronic renal failure, stage 4 (severe) Is this a current diagnosis for this admission?: Yes Plan: 10/06/2019-her hemoglobin was less than 9. We will continue to monitor. She does receive an erythropoietin analog weekly. If her hemoglobin changes I will discuss with nephrology and consider administration as an inpatient. She is also on chronic iron therapy. (4) Diabetes mellitus type 2 in obese Is this a current diagnosis for this admission?: Yes Plan: 10/06/2019-we will continue her long-acting insulin as well as utilize a sliding scale. We will also continue her sitagliptin. She will have fingersticks at meals and bedtime. (5) COPD exacerbation Is this a current diagnosis for this admission?: Yes Plan: 10/06/2019-the patient has a history of chronic obstructive pulmonary disease. We will institute aggressive nebulizer treatments. She uses Spiriva at home. When appropriate we will substitute our triple medication inhaler and then transition her back to her home regimen. (6) Morbid obesity with BMI of 40.0-44.9, adult Is this a current diagnosis for this admission?: Yes Plan: 10/06/2019-morbid obesity with BMI of 42.8. This adversely affects multiple comorbidities including heart failure and COPD. In addition it puts increased strain on her bad back. She does admit to snoring and Dr. Wilson is in the process of referring her for a sleep study. They can continue this work-up as an outpatient. She may benefit from CPAP at night. (7) CAD (coronary artery disease) Qualifiers: Coronary Disease-Associated Artery/Lesion type: [place] artery [place] vs. t ransplanted heart: [place] heart Associated angina: without angina Qualified Code(s): I25.10 - Atherosclerotic heart disease of [place] coronary artery without angina pectoris Is this a current diagnosis for this admission?: Yes Plan: 10/06/2019-the patient has a complex cardiac history including coronary artery bypass grafting x3 as well as stent placement. She did have a recent cardiac catheterization approximately 3 months ago. At that time her coronary arteries were clear. Continue current medication regimen. Monitor for signs of acute coronary syndrome. (8) Osteoarthritis of back Qualifiers: Spinal osteoarthritis complication: without myelopathy or radiculopathy Qualified Code(s): M47.815 - Spondylosis without myelopathy or radiculopathy, thoracolumbar region Is this a current diagnosis for this admission?: Yes Plan: 10/06/2019-at this time we will continue her current pain management therapy. We did discuss the possibility of her following up at a pain management clinic. Because of her kidney failure we need to avoid NSAIDs. (9) Back pain, chronic Qualifiers: Back pain location: low back pain Back pain laterality: midline Sciatica presence: without sciatica Qualified Code(s): M54.5 - Low back pain; G89.29 - Other chronic pain Is this a current diagnosis for this admission?: Yes Plan: 10/06/2019-the patient has degenerative disc disease, osteoarthritis and bone spurs. She denies sciatica. We will continue her chronic pain management at this time. Because of her kidney failure she cannot take NSAIDs. We will primarily use opiate therapy and monitor for constipation. (10) Hyperkalemia Is this a current diagnosis for this admission?: Yes Plan: 10/06/2019-continue Veltassa and monitor electrolytes. (11) Diabetic neuropathy associated with type 2 diabetes mellitus Qualifiers: Diabetes mellitus complication detail: diabetic polyneuropathy Qualified Code(s): E11.42 - Type 2 diabetes mellitus with diabetic polyneuropathy Is this a current diagnosis for this admission?: Yes Plan: 10/06/2019-patient cannot feel her feet. We will continue gabapentin. In addition I have asked physical therapy to see her to assess gait stability and safety. - Time Time Spent with patient: 35 or more minutes Medications reviewed and adjusted accordingly: Yes Anticipated discharge: Home with Homehealth - Inpatient Certification Based on my medical assessment, after consideration of the patient's comorbidities, presenting symptoms, or acuity I expect that the services needed warrant INPATIENT care.: Yes I certify that my determination is in accordance with my understanding of Medicare's requirements for reasonable and necessary INPATIENT services [42 CFR 412.3e].: Yes Medical Necessity: Need Close Monitoring Due to Risk of Patient Decompensation, Need For Continuous Telemetry Monitoring, Need for Nebulizer Therapy and Monitoring of Response, Need for Pain Control Post Hospital Care: D/C Furnace Repairer Documentation
--- NOTE | 2019-10-06 18:19 | EKG REPORT ---
SEVERITY:- ABNORMAL ECG - SINUS RHYTHM VENTRICULAR PREMATURE COMPLEX NONSPECIFIC INTRAVENTRICULAR CONDUCTION DELAY LOW VOLTAGE THROUGHOUT CONSIDER ANTEROSEPTAL INFARCT NONSPECIFIC T CHANGES : Confirmed by: Mariano Rodríguez 06-Oct-2019 18:18:35
[2019-10-06] MEDS ORDERED: INFLUENZA QUAD (6MOS+) 2019-20 VAC 0.5 ML SYR IM ONE (18:51)
[2019-10-06] MEDS: DIPHENHYDRAMINE HCL 25 MG CAPSULE PO SCH ×2 (18:58→23:12)
[2019-10-06] MEDS: HYDROCORTISONE 1% CREAM 28.35 GM TP SCH (19:54)
[2019-10-06] MEDS: BUDESONIDE NEB 0.5 MG/2 ML AMPUL NEB SCH (19:55)
[2019-10-06] MEDS: IPRATROPIUM/ALBUTEROL 0.5-2.5 MG/3 ML AMPUL NEB SCH (19:55)
[2019-10-06] MEDS: OXYCODONE-ACETAMINOPHEN 5-325 MG TABLET PO PRN (20:02)
[2019-10-06] MEDS: HEPARIN SOD (PORCINE) 5,000 UNIT/ML 1 ML VIAL SUBCUT SCH (21:06)
[2019-10-06] MEDS: INSULIN REG, HUMAN 100 UNIT/ML 3 ML VIAL (PYX) SUBCUT SCH (21:29)
[2019-10-06] MEDS: GABAPENTIN 300 MG CAPSULE PO SCH (21:42)
[2019-10-06] MEDS: MELATONIN 5 MG TABLET PO SCH (21:43)
[2019-10-06] MEDS: PROMETHAZINE HCL 25 MG TABLET PO SCH (21:43)
[2019-10-06] MEDS: AMLODIPINE BESYLATE 2.5 MG TABLET PO SCH (21:44)
[2019-10-06] MEDS: INSULIN GLARGINE,HUM.REC.ANLOG 1,000 UNIT/10 ML VIAL SUBCUT SCH (21:44)
[2019-10-06] MEDS ORDERED: INSULIN GLARGINE HUM REC ANLOG 50 UNIT SQ SCH (22:00)
[2019-10-06] MEDS ORDERED: (PENDING PHARMACY ID) (Melatonin [Melatonin] 5 MG) SL SCH (22:00)
[2019-10-06] MEDS ORDERED: [UNRECOGNIZED DRUG - OTHER] SQ SCH (22:00)
[2019-10-07] MEDS: IPRATROPIUM/ALBUTEROL 0.5-2.5 MG/3 ML AMPUL NEB SCH ×4 (02:18→20:15)
[2019-10-07] MEDS: HEPARIN SOD (PORCINE) 5,000 UNIT/ML 1 ML VIAL SUBCUT SCH ×3 (05:05→21:41)
[2019-10-07] MEDS: DIPHENHYDRAMINE HCL 25 MG CAPSULE PO SCH ×4 (05:06→23:28)
[2019-10-07] MEDS: PANTOPRAZOLE SODIUM 40 MG TABLET.DR PO SCH ×2 (05:06→17:22)
[2019-10-07] MEDS: BUDESONIDE NEB 0.5 MG/2 ML AMPUL NEB SCH ×2 (07:43→20:15)
--- NOTE | 2019-10-07 07:56 | ADVANCED CARE ---
Attendance: patient and Resuscitation Status: Do Not Resuscitate Discussion: When I began to review CODE STATUS the patient and her both stated that they understood the subject and in fact they reported that the patient has a DO NOT RESUSCITATE order on file. The cannot remember if it was a living will or just a DNR. I explained that with a living well not only can she designate the first and second decision-makers but also can provide specifics with regard to limitations on her care in the event of a catastrophic illness. They understand and I have told him that in the admission packet's there is a blank form and that they should review it because at some point her medical illness these will be overwhelming and incapacitating and decision such as home with hospice or hospice house for terminal care will be important and extremely difficult. And it takes the responsibility off of your if you explain the care that he would like provided at the end of life. Care Planning Goals: In addition to the DNR already on file, it would help the patient and her if she could designate specifics for end-of-life care such as home hospice, hospice at a facility or inpatient hospice as an example. Document(s) Completed: Already has a DNR on file Time Spent: 18 minutes
[2019-10-07] MEDS: INSULIN REG, HUMAN 100 UNIT/ML 3 ML VIAL (PYX) SUBCUT SCH ×4 (08:41→21:54)
[2019-10-07 09:25] LABS: ANION GAP 12 (5-19); BLOOD UREA NITROGEN 78 mg/dL (7-20); CALCIUM 7.8 mg/dL (8.4-10.2); CARBON DIOXIDE 18 mmol/L (22-30); CHLORIDE 108 mmol/L (98-107); GLUCOSE 91 mg/dL (75-110); POTASSIUM 5.1 mmol/L (3.6-5.0)
[2019-10-07] MEDS ORDERED: (PENDING PHARMACY ID) (Ondansetron Hcl [Zofran 4 Mg Tablet] 4 MG) PO SCH (10:00)
[2019-10-07] MEDS ORDERED: PATIROMER CALCIUM SORBITEX 16.8 GM PO SCH (10:00)
[2019-10-07] MEDS ORDERED: SITAGLIPTIN PHOSPHATE 50 MG TABLET PO SCH (10:00)
[2019-10-07] MEDS ORDERED: (PENDING PHARMACY ID) (Linaclotide [Linzess] 72 MCG) PO SCH (10:00)
[2019-10-07] MEDS ORDERED: (PENDING PHARMACY ID) (Tiotropium Bromide [Spiriva Handihaler 5 Cap/Kit (18 Mcg/Cap)] 1 PU IH SCH (10:00)
[2019-10-07] MEDS ORDERED: UMECLIDINIUM BROMIDE 62.5 MCG/DOSE IH SCH (10:00)
[2019-10-07] MEDS ORDERED: LOSARTAN POTASSIUM 25 MG TABLET PO SCH (10:00)
[2019-10-07] MEDS ORDERED: (PENDING PHARMACY ID) (Telmisartan [Micardis 20 Mg Tablet] 20 MG) PO SCH (10:00)
[2019-10-07] MEDS ORDERED: FUROSEMIDE 40 MG TABLET PO SCH (10:00)
[2019-10-07] MEDS: POLYVINYL ALCOHOL 1.4% OPH SOLN 15 ML OU PRN (11:49)
[2019-10-07] MEDS: HYDROCORTISONE 1% CREAM 28.35 GM TP SCH ×2 (11:50→17:22)
[2019-10-07] MEDS: SITAGLIPTIN PHOSPHATE 25 MG TABLET PO SCH (11:50)
[2019-10-07] MEDS: GABAPENTIN 300 MG CAPSULE PO SCH ×2 (11:52→21:56)
[2019-10-07] MEDS: ISOSORBIDE MONONITRATE 60 MG TAB.ER.24H PO SCH (11:52)
[2019-10-07] MEDS: DIAZEPAM 5 MG TABLET PO SCH (11:52)
[2019-10-07] MEDS: MONTELUKAST SODIUM 10 MG TABLET PO SCH (11:52)
[2019-10-07] MEDS: ONDANSETRON 4 MG TAB.RAPDIS PO SCH (11:53)
[2019-10-07] MEDS: METOPROLOL SUCCINATE 25 MG TAB.SR.24H PO SCH (11:53)
[2019-10-07] MEDS: CLOPIDOGREL BISULFATE 75 MG TABLET PO SCH (11:53)
[2019-10-07] MEDS: ASPIRIN 81 MG TABLET, CHEWABLE PO SCH (11:53)
[2019-10-07] MEDS: CALCITRIOL 0.25 MCG CAPSULE PO SCH (11:54)
[2019-10-07] MEDS: LORATADINE 10 MG TABLET PO SCH (11:54)
[2019-10-07] MEDS: DOCUSATE SODIUM 100 MG CAPSULE PO SCH (11:54)
[2019-10-07] MEDS: FUROSEMIDE 40 MG TABLET PO SCH (11:55)
[2019-10-07] MEDS: PATIROMER 8.4 GM SUSP PACKET PO SCH (17:30)
[2019-10-07] MEDS: INSULIN GLARGINE,HUM.REC.ANLOG 1,000 UNIT/10 ML VIAL SUBCUT SCH ×2 (19:15→21:55)
[2019-10-07] MEDS: AMLODIPINE BESYLATE 2.5 MG TABLET PO SCH (19:15)
[2019-10-07] MEDS: MELATONIN 5 MG TABLET PO SCH (21:56)
[2019-10-07] MEDS: PROMETHAZINE HCL 25 MG TABLET PO SCH (21:56)
[2019-10-07] MEDS: OXYCODONE-ACETAMINOPHEN 5-325 MG TABLET PO PRN (22:03)
[2019-10-07 23:01] LABS: APPEARANCE,URINE SLIGHTLY-CLOUDY; BILIRUBIN,URINE NEGATIVE (NEGATIVE); COLOR,URINE YELLOW; GLUCOSE, URINE NEGATIVE (NEGATIVE); KETONES,URINE NEGATIVE (NEGATIVE); PROTEIN,URINE NEGATIVE (NEGATIVE); URINE SPECIFIC GRAVITY 1.009; UROBILINOGEN,URINE NEGATIVE mg/dL (<2.0)
[2019-10-08] MEDS: IPRATROPIUM/ALBUTEROL 0.5-2.5 MG/3 ML AMPUL NEB SCH ×4 (02:26→19:42)
[2019-10-08] MEDS: HEPARIN SOD (PORCINE) 5,000 UNIT/ML 1 ML VIAL SUBCUT SCH ×3 (05:40→21:46)
[2019-10-08] MEDS: DIPHENHYDRAMINE HCL 25 MG CAPSULE PO SCH ×4 (05:42→23:01)
[2019-10-08] MEDS: PANTOPRAZOLE SODIUM 40 MG TABLET.DR PO SCH ×2 (05:42→17:22)
[2019-10-08] MEDS: BUDESONIDE NEB 0.5 MG/2 ML AMPUL NEB SCH ×2 (07:43→19:42)
[2019-10-08] MEDS: INSULIN REG, HUMAN 100 UNIT/ML 3 ML VIAL (PYX) SUBCUT SCH ×4 (07:52→21:46)
[2019-10-08 08:50] LABS: ANION GAP 10 (5-19); BLOOD UREA NITROGEN 74 mg/dL (7-20); CALCIUM 7.9 mg/dL (8.4-10.2); CARBON DIOXIDE 19 mmol/L (22-30); CHLORIDE 109 mmol/L (98-107); POTASSIUM 5.5 mmol/L (3.6-5.0)
[2019-10-08 08:53] LABS: GLUCOSE 67 mg/dL (75-110)
[2019-10-08] MEDS: SITAGLIPTIN PHOSPHATE 25 MG TABLET PO SCH (09:36)
[2019-10-08] MEDS: INSULIN GLARGINE,HUM.REC.ANLOG 1,000 UNIT/10 ML VIAL SUBCUT SCH (09:36)
[2019-10-08] MEDS: LORATADINE 10 MG TABLET PO SCH (09:45)
[2019-10-08] MEDS: DIAZEPAM 5 MG TABLET PO SCH (09:45)
[2019-10-08] MEDS: METOPROLOL SUCCINATE 25 MG TAB.SR.24H PO SCH (09:45)
[2019-10-08] MEDS: MONTELUKAST SODIUM 10 MG TABLET PO SCH (09:45)
[2019-10-08] MEDS: ASPIRIN 81 MG TABLET, CHEWABLE PO SCH (09:45)
[2019-10-08] MEDS: DOCUSATE SODIUM 100 MG CAPSULE PO SCH (09:46)
[2019-10-08] MEDS: FUROSEMIDE 40 MG TABLET PO SCH (09:46)
[2019-10-08] MEDS: ISOSORBIDE MONONITRATE 60 MG TAB.ER.24H PO SCH (09:46)
[2019-10-08] MEDS: GABAPENTIN 300 MG CAPSULE PO SCH ×2 (09:46→21:35)
[2019-10-08] MEDS: ONDANSETRON 4 MG TAB.RAPDIS PO SCH (09:46)
[2019-10-08] MEDS: LOSARTAN POTASSIUM 25 MG TABLET PO SCH (09:46)
[2019-10-08] MEDS: CLOPIDOGREL BISULFATE 75 MG TABLET PO SCH (09:46)
[2019-10-08] MEDS: HYDROCORTISONE 1% CREAM 28.35 GM TP SCH ×2 (09:47→17:22)
[2019-10-08] MEDS: POLYVINYL ALCOHOL 1.4% OPH SOLN 15 ML OU PRN (09:47)
[2019-10-08] MEDS: AMLODIPINE BESYLATE 2.5 MG TABLET PO SCH (09:47)
--- NOTE | 2019-10-08 13:51 | PDOC PROGRESS REPORT ---
Subjective Progress Note for:: 10/07/19 Subjective:: PRECIOUS BURCH is a 74 year old female with a very complex past medical history including grade 2/4 diastolic heart failure, chronic obstructive pulmonary disease, chronic renal failure as well as diabetes mellitus type 2. Approximately 3 weeks ago she saw her primary care provider, Dr. Wilson, for breathing difficulties. Chest x-ray did not reveal pneumonia and a Z-Matt and prednisone were given for bronchitis. The patient finished the course of medications and felt somewhat better temporarily and then she noticed that her breathing was slowly getting worse. Over the last several days especially she has had a nonproductive cough. She thinks that she had a fever last week. She has also noticed mucus from her nose (rhinorrhea). Other symptoms include postnasal drip and a sense of fullness in her ears. She also complains of a sore throat. Her oxygen saturation has been normal on her baseline 2.5 L/min nasal cannula. Her work-up in the emergency department revealed acute on chronic kidney failure, and elevated brain natruretic peptide as well as shortness of breath. She is normally on 2.5 L by nasal cannula oxygen at home and has normal pulse oximetry on the same amount of oxygen in the emergency department. She was referred to the hospital service for admission. 10/07/2019. No acute events overnight. Reason For Visit: ACUTE ON CHRONIC KIDNEY FAILURE Physical Exam Vital Signs: Temp Pulse Resp BP Pulse Ox 97.9 F 52 L 16 106/55 L 99 10/08/19 11:49 10/08/19 13:30 10/08/19 13:30 10/08/19 11:49 10/08/19 13:30 Intake & Output 10/07/19 10/08/19 10/09/19 06:59 06:59 06:59 Intake Total 1194 360 Output Total 550 875 Balance -550 319 360 Weight 96.1 kg 97.9 kg General appearance: PRESENT: morbidly obese Head exam: PRESENT: atraumatic, normocephalic Respiratory exam: PRESENT: decreased breath sounds. ABSENT: rales, rhonchi, wheezes Cardiovascular exam: PRESENT: RRR. ABSENT: diastolic murmur, rubs, systolic murmur GI/Abdominal exam: PRESENT: normal bowel sounds, soft, tenderness - LLQ. ABSENT: distended, guarding, mass, organolmegaly, rebound Neurological exam: PRESENT: alert, awake, oriented to person, oriented to place, oriented to time, oriented to situation, CN II-XII grossly intact. ABSENT: motor sensory deficit Results Laboratory Results: 10/06/19 12:23 10/08/19 08:26 10/07/19 10/08/19 22:50 08:26 Sodium 137.8 Potassium 5.5 H Chloride 109 H Carbon Dioxide 19 L Anion Gap 10 BUN 74 H Creatinine 3.93 H Est GFR ( Amer) 14 L Glucose 67 L Calcium 7.9 L Urine Color YELLOW Urine Appearance SLIGHTLY-CLOUDY Urine pH 5.0 Ur Specific [place] 1.009 Urine Protein NEGATIVE Urine Glucose (UA) NEGATIVE Urine Ketones NEGATIVE Urine Blood MODERATE H Urine RBC (Auto) 10/06/19 12:23 Troponin I 0.020 NT-Pro-B Natriuret Pep 6270 H Impressions: Chest X-Ray 10/06/19 11:47 IMPRESSION: No acute findings Assessment and Plan - Diagnosis (1) Acute on chronic diastolic (congestive) heart failure Is this a current diagnosis for this admission?: Yes Plan: History of 2/4 diastolic heart failure from an echocardiogram in January 2019. Continue strict in and out, diuretics, JOSE, beta-blockers, daily weight. Outpatient PCP follow-up. (2) Acute worsening of stage 4 chronic kidney disease Is this a current diagnosis for this admission?: Yes Plan: Nonoliguric. Stable. Electrolytes WNL except for hyperkalemia. Sees Dr. Serra as outpatient. Monitor electrolytes and volume status. Replace electrolytes as needed. Avoid nephrotoxic meds. Optimize BP and diabetic control. Outpatient nephrology and PCP follow-up. (3) CAD (coronary artery disease) Qualifiers: Coronary Disease-Associated Artery/Lesion type: [place] artery [place] vs. transplanted heart: [place] heart Associated angina: without angina Qualified Code(s): I25.10 - Atherosclerotic heart disease of [place] coronary artery without angina pectoris Is this a current diagnosis for this admission?: Yes Plan: Extensive cardiac history. Status post CABG and recent cardiac catheterization. Denies any anginal symptoms. Continue beta-blockers, JOSE, DAPT. Outpatient PCP and cardiology follow-up. (4) COPD exacerbation Is this a current diagnosis for this admission?: Yes Plan: History of COPD not on home oxygen. Continue duo nebs, flutter valve, incentive spirometry, LMA, ICS, IV steroids, LABA. (5) Diabetes mellitus type 2 in obese Is this a current diagnosis for this admission?: Yes Plan: Noted to be hypoglycemic on this admission. Likely due to low p.o. intake and worsening kidney function. Continue diabetic diet, basal, prandial and pre-meal insulin, adjust dosage as needed. Hypoglycemic protocol. Accu-Chek. (6) Hyperkalemia Is this a current diagnosis for this admission?: Yes Plan: Chronic persistent. No acute EKG changes. Likely due to worsening renal function. Takes Velt[place] at home. Continue home meds, continue telemetry, hyperkalemia protocol. (7) Morbid obesity with BMI of 40.0-44.9, adult Is this a current diagnosis for this admission?: Yes Plan: BMI of 43.6. Likely candidate for bariatric surgery however due to multiple comorbidities may not be a good candidate. Diet and lifestyle modification recommended. (8) Osteoarthritis of back Qualifiers: Spinal osteoarthritis complication: without myelopathy or radiculopathy Q ualified Code(s): M47.815 - Spondylosis without myelopathy or radiculopathy, thoracolumbar region Is this a current diagnosis for this admission?: Yes Plan: We did discuss the possibility of her following up at a pain management clinic. Because of her kidney failure we need to avoid NSAIDs.
[2019-10-08] MEDS: PATIROMER 8.4 GM SUSP PACKET PO SCH (17:22)
[2019-10-08] MEDS: MELATONIN 1 MG TABLET PO SCH (21:34)
[2019-10-08] MEDS: PROMETHAZINE HCL 25 MG TABLET PO SCH (21:35)
[2019-10-08] MEDS: MELATONIN 3 MG TABLET PO SCH (21:35)
[2019-10-08] MEDS: SODIUM POLYSTYRENE SULFONATE 15 GM/60 ML PO SCH (21:36)
[2019-10-08] MEDS ORDERED: INSULIN GLARGINE,HUM.REC.ANLOG 1,000 UNIT/10 ML VIAL SUBCUT SCH (22:00)
[2019-10-08] MEDS ORDERED: INSULIN GLARGINE,HUM.REC.ANLOG 1,000 UNIT/10 ML VIAL (PYX) SUBCUT PRN (22:22)
[2019-10-08] MEDS ORDERED: INSULIN GLARGINE,HUM.REC.ANLOG 1,000 UNIT/10 ML VIAL SUBCUT ONE (22:30)
[2019-10-09] MEDS: IPRATROPIUM/ALBUTEROL 0.5-2.5 MG/3 ML AMPUL NEB SCH ×4 (03:01→19:56)
[2019-10-09] MEDS: OXYCODONE-ACETAMINOPHEN 5-325 MG TABLET PO PRN (03:24)
[2019-10-09 04:20] LABS: ABSOLUTE EOSINOPHILS # (AUTO) 0.2 10^3/uL (0.0-0.6); ABSOLUTE MONOCYTES (AUTO) 0.4 10^3/uL (0.1-1.4); ABSOLUTE NEUT (AUTO) 2.3 10^3/uL (1.7-8.2); BASOPHILS % (AUTO) 0.3 % (0-2); HEMATOCRIT 23.7 % (36.0-47.0); LYMPHOCYTES % (AUTO) 25.8 % (13-45); MEAN CORPUSCULAR HEMOGLOBIN 30.8 pg (27.0-33.4); MEAN CORPUSCULAR HGB CONC 32.4 g/dL (32.0-36.0); MEAN CORPUSCULAR VOLUME 95 fl (80-97); MONOCYTES % (AUTO) 10.4 % (3-13); RED BLOOD COUNT 2.49 10^6/uL (3.72-5.28); RED CELL DISTRIBUTION WIDTH 16.9 % (11.5-14.0); SEGMENTED NEUTROPHILS % (AUTO) 57.5 % (42-78); TOTAL CELLS COUNTED % (AUTO) 100 %
[2019-10-09 04:40] LABS: ALBUMIN 3.2 g/dL (3.5-5.0); ALKALINE PHOSPHATASE 48 U/L (38-126); ANION GAP 10 (5-19); ASPARTATE AMINO TRANSFERASE 25 U/L (14-36); BILIRUBIN,DIRECT 0.2 mg/dL (0.0-0.4); BILIRUBIN,TOTAL 0.4 mg/dL (0.2-1.3); BLOOD UREA NITROGEN 77 mg/dL (7-20); CALCIUM 8.1 mg/dL (8.4-10.2); CARBON DIOXIDE 20 mmol/L (22-30); CHLORIDE 108 mmol/L (98-107); PHOSPHORUS 6.1 mg/dL (2.5-4.5); POTASSIUM 5.8 mmol/L (3.6-5.0)
[2019-10-09 04:48] LABS: GLUCOSE 56 mg/dL (75-110)
[2019-10-09 04:52] LABS: HEMOGLOBIN 7.7 g/dL (12.0-15.5); PLATELET COUNT 82 10^3/uL (150-450)
[2019-10-09] MEDS: HEPARIN SOD (PORCINE) 5,000 UNIT/ML 1 ML VIAL SUBCUT SCH ×3 (05:26→21:30)
[2019-10-09] MEDS: PANTOPRAZOLE SODIUM 40 MG TABLET.DR PO SCH ×2 (05:29→17:17)
[2019-10-09] MEDS: DIPHENHYDRAMINE HCL 25 MG CAPSULE PO SCH ×4 (05:29→23:16)
[2019-10-09] MEDS: BUDESONIDE NEB 0.5 MG/2 ML AMPUL NEB SCH ×2 (07:53→19:56)
[2019-10-09] MEDS: INSULIN REG, HUMAN 100 UNIT/ML 3 ML VIAL (PYX) SUBCUT SCH ×4 (08:31→21:30)
[2019-10-09] MEDS: ASPIRIN 81 MG TABLET, CHEWABLE PO SCH (10:20)
[2019-10-09] MEDS: LORATADINE 10 MG TABLET PO SCH (10:20)
[2019-10-09] MEDS: LOSARTAN POTASSIUM 25 MG TABLET PO SCH (10:20)
[2019-10-09] MEDS: DOCUSATE SODIUM 100 MG CAPSULE PO SCH (10:20)
[2019-10-09] MEDS: FUROSEMIDE 40 MG TABLET PO SCH (10:22)
[2019-10-09] MEDS: ISOSORBIDE MONONITRATE 60 MG TAB.ER.24H PO SCH (10:22)
[2019-10-09] MEDS: SITAGLIPTIN PHOSPHATE 25 MG TABLET PO SCH (10:22)
[2019-10-09] MEDS: METOPROLOL SUCCINATE 25 MG TAB.SR.24H PO SCH (10:23)
[2019-10-09] MEDS: MONTELUKAST SODIUM 10 MG TABLET PO SCH (10:23)
[2019-10-09] MEDS: ONDANSETRON 4 MG TAB.RAPDIS PO SCH (10:23)
[2019-10-09] MEDS: DIAZEPAM 5 MG TABLET PO SCH (10:23)
[2019-10-09] MEDS: GABAPENTIN 300 MG CAPSULE PO SCH ×2 (10:23→21:52)
[2019-10-09] MEDS: CALCITRIOL 0.25 MCG CAPSULE PO SCH (10:23)
[2019-10-09] MEDS: HYDROCORTISONE 1% CREAM 28.35 GM TP SCH ×2 (10:24→17:18)
[2019-10-09] MEDS: AMLODIPINE BESYLATE 2.5 MG TABLET PO SCH (10:25)
[2019-10-09] MEDS: SODIUM POLYSTYRENE SULFONATE 15 GM/60 ML PO SCH (10:28)
[2019-10-09] MEDS: CLOPIDOGREL BISULFATE 75 MG TABLET PO SCH (10:29)
--- NOTE | 2019-10-09 11:53 | PDOC PROGRESS REPORT ---
Subjective Progress Note for:: 10/09/19 Subjective:: PRECIOUS BURCH is a 74 year old female with a very complex past medical history including grade 2/4 diastolic heart failure, chronic obstructive pulmonary disease, chronic renal failure as well as diabetes mellitus type 2. Approximately 3 weeks ago she saw her primary care provider, Dr. Wilson, for breathing difficulties. Chest x-ray did not reveal pneumonia and a Z-Matt and prednisone were given for bronchitis. The patient finished the course of medications and felt somewhat better temporarily and then she noticed that her breathing was slowly getting worse. Over the last several days especially she has had a nonproductive cough. She thinks that she had a fever last week. She has also noticed mucus from her nose (rhinorrhea). Other symptoms include postnasal drip and a sense of fullness in her ears. She also complains of a sore throat. Her oxygen saturation has been normal on her baseline 2.5 L/min nasal cannula. Her work-up in the emergency department revealed acute on chronic kidney failure, and elevated brain natruretic peptide as well as shortness of breath. She is normally on 2.5 L by nasal cannula oxygen at home and has normal pulse oximetry on the same amount of oxygen in the emergency department. She was referred to the hospital service for admission. 10/09/2019. No acute events overnight. Complaining of abdominal distention. Passing flatus. Has not had a bowel movement. Complaining of generalized fatigue. Denies any fever, chills, nausea, vomiting. Reason For Visit: ACUTE ON CHRONIC KIDNEY FAILURE Physical Exam Vital Signs: Temp Pulse Resp BP Pulse Ox 98.0 F 63 17 118/43 L 99 10/09/19 10:39 10/09/19 10:39 10/09/19 10:39 10/09/19 10:39 10/09/19 10:39 Intake & Output 10/08/19 10/09/19 10/10/19 06:59 06:59 06:59 Intake Total 1194 1520 Output Total 875 Balance 319 1520 Weight 97.9 kg 96.8 kg General appearance: PRESENT: morbidly obese Respiratory exam: PRESENT: clear to auscultation cheli. ABSENT: rales, rhonchi, wheezes Cardiovascular exam: PRESENT: RRR. ABSENT: diastolic murmur, rubs, systolic murmur GI/Abdominal exam: PRESENT: distended, normal bowel sounds, soft. ABSENT: guarding, mass, organolmegaly, rebound, tenderness Neurological exam: PRESENT: alert, awake, oriented to person, oriented to place, oriented to time, oriented to situation, CN II-XII grossly intact. ABSENT: motor sensory deficit Results Laboratory Results: 10/09/19 03:37 10/09/19 03:37 10/09/19 10/09/19 03:37 03:37 WBC 4.0 RBC 2.49 L Hgb 7.7 L Hct 23.7 L MCV 95 MCH 30.8 MCHC 32.4 RDW 16.9 H Plt Count 82 L Seg Neutrophils % 57.5 Sodium 137.8 Potassium 5.8 H Chloride 108 H Carbon Dioxide 20 L Anion Gap 10 BUN 77 H Creatinine 3.81 H Est GFR ( Amer) 14 L Glucose 56 L Calcium 8.1 L Phosphorus 6.1 H Magnesium 2.3 Total Bilirubin 0.4 AST 25 Alkaline Phosphatase 48 Total Protein 6.0 L Albumin 3.2 L 10/06/19 12:23 Troponin I 0.020 NT-Pro-B Natriuret Pep 6270 H Impressions: Chest X-Ray 10/06/19 11:47 IMPRESSION: No acute findings Assessment and Plan - Diagnosis (1) Acute on chronic diastolic (congestive) heart failure Is this a current diagnosis for this admission?: Yes Plan: History of 2/4 diastolic heart failure from an echocardiogram in January 2019. Continue strict in and out, diuretics, JOSE, beta-blockers, daily weight. Outpatient PCP follow-up. (2) Acute worsening of stage 4 chronic kidney disease Is this a current diagnosis for this admission?: Yes Plan: Nonoliguric. Mild worsening of creatinine. Electrolytes WNL except for hype rkalemia. Sees Dr. Serra as outpatient. Monitor electrolytes and volume status. Replace electrolytes as needed. Avoid nephrotoxic meds. Optimize BP and diabetic control. Outpatient nephrology and PCP follow-up. (3) CAD (coronary artery disease) Qualifiers: Coronary Disease-Associated Artery/Lesion type: [place] artery [place] vs. transplanted heart: [place] heart Associated angina: without angina Qualified Code(s): I25.10 - Atherosclerotic heart disease of [place] coronary artery without angina pectoris Is this a current diagnosis for this admission?: Yes Plan: Extensive cardiac history. Status post CABG and recent cardiac catheterization. Denies any anginal symptoms. Continue beta-blockers, JOSE, DAPT. Outpatient PCP and cardiology follow-up. (4) COPD exacerbation Is this a current diagnosis for this admission?: Yes Plan: History of COPD not on home oxygen. Continue duo nebs, flutter valve, incentive spirometry, LMA, ICS, IV steroids, LABA. (5) Diabetes mellitus type 2 in obese Is this a current diagnosis for this admission?: Yes Plan: Noted to be hypoglycemic on this admission. Likely due to low p.o. intake and worsening kidney function. Continue diabetic diet, basal, prandial and pre-meal insulin, adjust dosage as needed. Hypoglycemic protocol. Accu-Chek. (6) Hyperkalemia Is this a current diagnosis for this admission?: Yes Plan: Chronic persistent. No acute EKG changes. Likely due to worsening renal function. Takes Velt[place] at home. Continue home meds, continue telemetry, hyperkalemia protocol. (7) Morbid obesity with BMI of 40.0-44.9, adult Is this a current diagnosis for this admission?: Yes Plan: BMI of 43.6. Likely candidate for bariatric surgery however due to multiple comorbidities may not be a good candidate. Diet and lifestyle modification recommended. (8) Osteoarthritis of back Qualifiers: Spinal osteoarthritis complication: without myelopathy or radiculopathy Qualified Code(s): M47.815 - Spondylosis without myelopathy or radiculopathy, thoracolumbar region Is this a current diagnosis for this admission?: Yes Plan: We did discuss the possibility of her following up at a pain management clinic. Because of her kidney failure we need to avoid NSAIDs. (9) Hypoglycemia Is this a current diagnosis for this admission?: Yes Plan: Patient has low appetite. This is likely due to combination of low p.o. intake and decrease insulin demand due to worsening kidney function. Hypoglycemia protocol. Accu-Chek. Encourage p.o. intake. Adjust insulin doses.
[2019-10-09] MEDS ORDERED: PROMETHAZINE HCL INJ 25 MG/1 ML VIAL IV PRN (13:50)
[2019-10-09] MEDS: ONDANSETRON HCL INJ/PF 4 MG/2 ML SDV IV PRN (14:49)
[2019-10-09] MEDS: ACETAMINOPHEN 325 MG TABLET PO PRN (17:18)
[2019-10-09] MEDS: PATIROMER 8.4 GM SUSP PACKET PO SCH ×2 (17:19→21:51)
[2019-10-09] MEDS ORDERED: PATIROMER 8.4 GM SUSP PACKET ONE ×2 (21:45)
[2019-10-09] MEDS: MELATONIN 3 MG TABLET PO SCH (21:52)
[2019-10-09] MEDS: LUBIPROSTONE 24 MCG CAPSULE PO SCH (21:52)
[2019-10-09] MEDS: MELATONIN 1 MG TABLET PO SCH (21:52)
[2019-10-09] MEDS ORDERED: INSULIN GLARGINE,HUM.REC.ANLOG 1,000 UNIT/10 ML VIAL SUBCUT SCH ×2 (22:00)
[2019-10-09] MEDS ORDERED: LUBIPROSTONE 24 MCG CAPSULE PO SCH (22:00)
[2019-10-10] MEDS: OXYCODONE-ACETAMINOPHEN 5-325 MG TABLET PO PRN ×2 (00:46→20:42)
[2019-10-10] MEDS: IPRATROPIUM/ALBUTEROL 0.5-2.5 MG/3 ML AMPUL NEB SCH ×4 (02:10→20:34)
[2019-10-10] MEDS: HEPARIN SOD (PORCINE) 5,000 UNIT/ML 1 ML VIAL SUBCUT SCH ×3 (05:38→21:42)
[2019-10-10] MEDS: DIPHENHYDRAMINE HCL 25 MG CAPSULE PO SCH ×4 (05:43→23:02)
[2019-10-10] MEDS: GABAPENTIN 300 MG CAPSULE PO SCH ×2 (05:43→18:56)
[2019-10-10] MEDS: PANTOPRAZOLE SODIUM 40 MG TABLET.DR PO SCH ×2 (05:43→16:57)
[2019-10-10] MEDS: ACETAMINOPHEN 325 MG TABLET PO PRN (05:46)
[2019-10-10] MEDS: INSULIN REG, HUMAN 100 UNIT/ML 3 ML VIAL (PYX) SUBCUT SCH ×4 (07:21→21:41)
[2019-10-10] MEDS: BUDESONIDE NEB 0.5 MG/2 ML AMPUL NEB SCH ×2 (08:01→20:34)
[2019-10-10 08:37] LABS: ABSOLUTE EOSINOPHILS # (AUTO) 0.2 10^3/uL (0.0-0.6); ABSOLUTE LYMPHOCYTES (AUTO) 0.8 10^3/uL (0.5-4.7); ABSOLUTE MONOCYTES (AUTO) 0.5 10^3/uL (0.1-1.4); ABSOLUTE NEUT (AUTO) 4.5 10^3/uL (1.7-8.2); BASOPHILS % (AUTO) 0.3 % (0-2); EOSINOPHILS % (AUTO) 3.8 % (0-6); HEMATOCRIT 22.2 % (36.0-47.0); LYMPHOCYTES % (AUTO) 13.3 % (13-45); MEAN CORPUSCULAR HEMOGLOBIN 31.3 pg (27.0-33.4); MEAN CORPUSCULAR HGB CONC 32.8 g/dL (32.0-36.0); MEAN CORPUSCULAR VOLUME 95 fl (80-97); MONOCYTES % (AUTO) 8.8 % (3-13); RED BLOOD COUNT 2.33 10^6/uL (3.72-5.28); RED CELL DISTRIBUTION WIDTH 16.9 % (11.5-14.0); SEGMENTED NEUTROPHILS % (AUTO) 73.8 % (42-78); TOTAL CELLS COUNTED % (AUTO) 100 %; WHITE BLOOD COUNT 6.1 10^3/uL (4.0-10.5)
[2019-10-10 08:48] LABS: HEMOGLOBIN 7.3 g/dL (12.0-15.5)
[2019-10-10 09:21] LABS: PLATELET COUNT 72 10^3/uL (150-450)
[2019-10-10] MEDS ORDERED: NORMAL SALINE 250 ML IV PRN ×2 (09:22)
[2019-10-10 10:09] LABS: ALBUMIN 2.9 g/dL (3.5-5.0); ALKALINE PHOSPHATASE 49 U/L (38-126); ANION GAP 7 (5-19); ASPARTATE AMINO TRANSFERASE 26 U/L (14-36); BILIRUBIN,DIRECT 0.2 mg/dL (0.0-0.4); BILIRUBIN,TOTAL 0.5 mg/dL (0.2-1.3); BLOOD UREA NITROGEN 71 mg/dL (7-20); CARBON DIOXIDE 21 mmol/L (22-30); CHLORIDE 109 mmol/L (98-107); GLUCOSE 83 mg/dL (75-110); POTASSIUM 5.8 mmol/L (3.6-5.0); TOTAL PROTEIN 5.7 g/dL (6.3-8.2)
[2019-10-10] MEDS: ONDANSETRON HCL INJ/PF 4 MG/2 ML SDV IV PRN ×2 (10:33→16:33)
--- NOTE | 2019-10-10 11:21 | PDOC PROGRESS REPORT ---
Subjective Progress Note for:: 10/10/19 Subjective:: PRECIOUS BURCH is a 74 year old female with a very complex past medical history including grade 2/4 diastolic heart failure, chronic obstructive pulmonary disease, chronic renal failure as well as diabetes mellitus type 2. Approximately 3 weeks ago she saw her primary care provider, Dr. Wilson, for breathing difficulties. Chest x-ray did not reveal pneumonia and a Z-Matt and prednisone were given for bronchitis. The patient finished the course of medications and felt somewhat better temporarily and then she noticed that her breathing was slowly getting worse. Over the last several days especially she has had a nonproductive cough. She thinks that she had a fever last week. She has also noticed mucus from her nose (rhinorrhea). Other symptoms include postnasal drip and a sense of fullness in her ears. She also complains of a sore throat. Her oxygen saturation has been normal on her baseline 2.5 L/min nasal cannula. Her work-up in the emergency department revealed acute on chronic kidney failure, and elevated brain natruretic peptide as well as shortness of breath. She is normally on 2.5 L by nasal cannula oxygen at home and has normal pulse oximetry on the same amount of oxygen in the emergency department. She was referred to the hospital service for admission. 10/09/2019. No acute events overnight. Complaining of abdominal distention. Passing flatus. Has not had a bowel movement. Complaining of generalized fatigue. Denies any fever, chills, nausea, vomiting. 10/10/2019. Patient is still complaining of abdominal distention, nausea, constipation and generalized fatigue, denies fever, chills, shortness of breath, chest pain, diarrhea or any vomiting. Reason For Visit: ACUTE ON CHRONIC KIDNEY FAILURE Physical Exam Vital Signs: Temp Pulse Resp BP Pulse Ox 98.3 F 65 18 119/33 L 99 10/10/19 08:00 10/10/19 08:00 10/10/19 08:00 10/10/19 08:00 10/10/19 08:00 Intake & Output 10/09/19 10/10/19 10/11/19 06:59 06:59 06:59 Intake Total 1520 942 Output Total 600 Balance 1520 342 Weight 96.8 kg 101.5 kg General appearance: PRESENT: mild distress, morbidly obese, well-developed, well-nourished Head exam: PRESENT: atraumatic, normocephalic Cardiovascular exam: PRESENT: RRR. ABSENT: diastolic murmur, rubs, systolic murmur GI/Abdominal exam: PRESENT: distended, normal bowel sounds, soft. ABSENT: guarding, mass, organolmegaly, rebound, tenderness Neurological exam: PRESENT: alert, awake, oriented to person, oriented to place, oriented to time, oriented to situation, CN II-XII grossly intact. ABSENT: motor sensory deficit Results Laboratory Results: 10/10/19 08:08 10/10/19 09:41 10/10/19 10/10/19 10/10/19 08:08 08:08 09:41 WBC 6.1 RBC 2.33 L Hgb 7.3 L Hct 22.2 L MCV 95 MCH 31.3 MCHC 32.8 RDW 16.9 H Plt Count 72 L Seg Neutrophils % 73.8 Sodium Cancelled 136.7 L Potassium Cancelled 5.8 H Chloride Cancelled 109 H Carbon Dioxide Cancelled 21 L Anion Gap Cancelled 7 BUN Cancelled 71 H Creatinine Cancelled 3.38 H Est GFR ( Amer) Cancelled 16 L Est GFR (Non-Af Amer) Cancelled Glucose Cancelled 83 Calcium Cancelled 8.0 L Total Bilirubin Cancelled 0.5 AST Cancelled 26 Alkaline Phosphatase Cancelled 49 Total Protein Cancelled 5.7 L Albumin Cancelled 2.9 L 10/06/19 12:23 Troponin I 0.020 NT-Pro-B Natriuret Pep 6270 H Impressions: Chest X-Ray 10/06/19 11:47 IMPRESSION: No acute findings Assessment and Plan - Diagnosis (1) Acute on chronic diastolic (congestive) heart failure Is this a current diagnosis for this admission?: Yes Plan: History of 2/4 diastolic heart failure from an echocardiogram in January 2019. Continue strict in and out, diuretics, JOSE, beta-blockers, daily weight. Outpatient PCP follow-up. (2) Acute worsening of stage 4 chronic kidney disease Is this a current diagnosis for this admission?: Yes Plan: Nonoliguric. Creatinine at baseline. Electrolytes WNL except for hyperkalemia. Sees Dr. Serra as outpatient. Monitor electrolytes and volume status. Replace electrolytes as needed. Avoid nephrotoxic meds. Optimize BP and diabetic control. Outpatient nephrology and PCP follow-up. (3) CAD (coronary artery disease) Qualifiers: Coronary Disease-Associated Artery/Lesion type: [place] artery [place] vs. transplanted heart: [place] heart Associated angina: without angina Qualified Code(s): I25.10 - Atherosclerotic heart disease of [place] coronary artery without angina pectoris Is this a current diagnosis for this admission?: Yes Plan: Extensive cardiac history. Status post CABG and recent cardiac catheterization. Denies any anginal symptoms. Continue beta-blockers, JOSE, DAPT. Outpatient PCP and cardiology follow-up. (4) COPD exacerbation Is this a current diagnosis for this admission?: Yes Plan: History of COPD not on home oxygen. Continue duo nebs, flutter valve, incentive spirometry, LMA, ICS, IV steroids, LABA. (5) Diabetes mellitus type 2 in obese Is this a current diagnosis for this admission?: Yes Plan: Noted to be hypoglycemic on this admission. Likely due to low p.o. intake and worsening kidney function. Discontinue insulin, continue diabetic diet, lighting scale insulin, adjust dosage as needed. Hypoglycemic protocol. Accu-Chek. (6) Hyperkalemia Is this a current diagnosis for this admission?: Yes Plan: Chronic persistent. No acute EKG changes. Likely due to worsening renal function. Takes Veltassa at home. Continue home meds, continue telemetry, hyperkalemia protocol. (7) Morbid obesity with BMI of 40.0-44.9, adult Is this a current diagnosis for this admission?: Yes Plan: BMI of 43.6. Likely candidate for bariatric surgery however due to multiple comorbidities may not be a good candidate. Diet and lifestyle modification recommended. (8) Osteoarthritis of back Qualifiers: Spinal osteoarthritis complication: without myelopathy or radiculopathy Qualified Code(s): M47.815 - Spondylosis without myelopathy or radiculopathy, thoracolumbar region Is this a current diagnosis for this admission?: Yes Plan: We did discuss the possibility of her following up at a pain management clinic. Because of her kidney failure we need to avoid NSAIDs. (9) Hypoglycemia Is this a current diagnosis for this admission?: Yes Plan: Patient has low appetite. This is likely due to combination of low p.o. intake and decrease insulin demand due to worsening kidney function. Hypoglycemia protocol. Accu-Chek. Encourage p.o. intake. Adjust insulin doses.
[2019-10-10] MEDS ORDERED: LACTULOSE SYRUP 20 GM/30 ML UDCUP PO ONE (11:30)
[2019-10-10] MEDS: METOPROLOL SUCCINATE 25 MG TAB.SR.24H PO SCH (11:51)
[2019-10-10] MEDS: ASPIRIN 81 MG TABLET, CHEWABLE PO SCH (11:51)
[2019-10-10] MEDS: DIAZEPAM 5 MG TABLET PO SCH (11:52)
[2019-10-10] MEDS: LUBIPROSTONE 24 MCG CAPSULE PO SCH ×2 (11:52→18:55)
[2019-10-10] MEDS: LORATADINE 10 MG TABLET PO SCH (11:52)
[2019-10-10] MEDS: FUROSEMIDE 40 MG TABLET PO SCH (11:53)
[2019-10-10] MEDS: MONTELUKAST SODIUM 10 MG TABLET PO SCH (11:54)
[2019-10-10] MEDS: ISOSORBIDE MONONITRATE 60 MG TAB.ER.24H PO SCH (11:54)
[2019-10-10] MEDS: CLOPIDOGREL BISULFATE 75 MG TABLET PO SCH (11:54)
[2019-10-10] MEDS: DOCUSATE SODIUM 100 MG CAPSULE PO SCH (11:54)
[2019-10-10] MEDS: HYDROCORTISONE 1% CREAM 28.35 GM TP SCH ×2 (11:55→18:57)
[2019-10-10] MEDS: LOSARTAN POTASSIUM 25 MG TABLET PO SCH (11:55)
[2019-10-10] MEDS: AMLODIPINE BESYLATE 2.5 MG TABLET PO SCH (11:56)
[2019-10-10] MEDS: SITAGLIPTIN PHOSPHATE 25 MG TABLET PO SCH (11:56)
[2019-10-10] MEDS: METOCLOPRAMIDE HCL ORAL SOLN 10 MG/10 ML UDCUP PO SCH ×3 (12:09→21:42)
[2019-10-10] MEDS ORDERED: PATIROMER 8.4 GM SUSP PACKET ONE (21:24)
[2019-10-10 21:29] LABS: ABSOLUTE EOSINOPHILS # (AUTO) 0.2 10^3/uL (0.0-0.6); ABSOLUTE LYMPHOCYTES (AUTO) 0.8 10^3/uL (0.5-4.7); ABSOLUTE MONOCYTES (AUTO) 0.5 10^3/uL (0.1-1.4); ABSOLUTE NEUT (AUTO) 3.1 10^3/uL (1.7-8.2); BASOPHILS % (AUTO) 0.4 % (0-2); EOSINOPHILS % (AUTO) 4.5 % (0-6); HEMATOCRIT 27.3 % (36.0-47.0); MEAN CORPUSCULAR HEMOGLOBIN 30.9 pg (27.0-33.4); MEAN CORPUSCULAR HGB CONC 32.9 g/dL (32.0-36.0); MEAN CORPUSCULAR VOLUME 94 fl (80-97); MONOCYTES % (AUTO) 10.5 % (3-13); RED BLOOD COUNT 2.91 10^6/uL (3.72-5.28); RED CELL DISTRIBUTION WIDTH 17.6 % (11.5-14.0); SEGMENTED NEUTROPHILS % (AUTO) 66.6 % (42-78); TOTAL CELLS COUNTED % (AUTO) 100 %; WHITE BLOOD COUNT 4.7 10^3/uL (4.0-10.5)
[2019-10-10] MEDS: MELATONIN 3 MG TABLET PO SCH (21:42)
[2019-10-10] MEDS: MELATONIN 1 MG TABLET PO SCH (21:42)
[2019-10-10] MEDS: PATIROMER 8.4 GM SUSP PACKET PO SCH (21:42)
[2019-10-10 21:47] LABS: PLATELET COUNT 74 10^3/uL (150-450)
[2019-10-11] MEDS: IPRATROPIUM/ALBUTEROL 0.5-2.5 MG/3 ML AMPUL NEB SCH ×4 (02:03→19:31)
[2019-10-11] MEDS: HEPARIN SOD (PORCINE) 5,000 UNIT/ML 1 ML VIAL SUBCUT SCH ×3 (06:23→22:18)
[2019-10-11] MEDS: OXYCODONE-ACETAMINOPHEN 5-325 MG TABLET PO PRN ×2 (06:26→22:36)
[2019-10-11] MEDS: GABAPENTIN 300 MG CAPSULE PO SCH ×2 (06:26→17:03)
[2019-10-11] MEDS: DIPHENHYDRAMINE HCL 25 MG CAPSULE PO SCH ×3 (06:26→17:03)
[2019-10-11] MEDS: PANTOPRAZOLE SODIUM 40 MG TABLET.DR PO SCH ×2 (06:26→17:03)
[2019-10-11 06:44] LABS: ABSOLUTE EOSINOPHILS # (AUTO) 0.2 10^3/uL (0.0-0.6); ABSOLUTE LYMPHOCYTES (AUTO) 0.8 10^3/uL (0.5-4.7); ABSOLUTE MONOCYTES (AUTO) 0.4 10^3/uL (0.1-1.4); ABSOLUTE NEUT (AUTO) 2.1 10^3/uL (1.7-8.2); BASOPHILS % (AUTO) 0.7 % (0-2); EOSINOPHILS % (AUTO) 5.4 % (0-6); HEMATOCRIT 25.1 % (36.0-47.0); HEMOGLOBIN 8.4 g/dL (12.0-15.5); LYMPHOCYTES % (AUTO) 22.3 % (13-45); MEAN CORPUSCULAR HEMOGLOBIN 31.1 pg (27.0-33.4); MEAN CORPUSCULAR HGB CONC 33.4 g/dL (32.0-36.0); MEAN CORPUSCULAR VOLUME 93 fl (80-97); MONOCYTES % (AUTO) 11.1 % (3-13); RED CELL DISTRIBUTION WIDTH 17.7 % (11.5-14.0); SEGMENTED NEUTROPHILS % (AUTO) 60.5 % (42-78); TOTAL CELLS COUNTED % (AUTO) 100 %; WHITE BLOOD COUNT 3.5 10^3/uL (4.0-10.5)
[2019-10-11 07:02] LABS: ALBUMIN 2.8 g/dL (3.5-5.0); ALKALINE PHOSPHATASE 54 U/L (38-126); ANION GAP 8 (5-19); ASPARTATE AMINO TRANSFERASE 28 U/L (14-36); BILIRUBIN,DIRECT 0.2 mg/dL (0.0-0.4); BILIRUBIN,TOTAL 0.4 mg/dL (0.2-1.3); BLOOD UREA NITROGEN 66 mg/dL (7-20); CARBON DIOXIDE 21 mmol/L (22-30); CHLORIDE 109 mmol/L (98-107); GLUCOSE 145 mg/dL (75-110); PHOSPHORUS 5.2 mg/dL (2.5-4.5); POTASSIUM 5.7 mmol/L (3.6-5.0); TOTAL PROTEIN 5.7 g/dL (6.3-8.2)
[2019-10-11 07:30] LABS: PLATELET COUNT 68 10^3/uL (150-450)
[2019-10-11] MEDS: BUDESONIDE NEB 0.5 MG/2 ML AMPUL NEB SCH ×2 (08:14→19:31)
[2019-10-11] MEDS: METOCLOPRAMIDE HCL ORAL SOLN 10 MG/10 ML UDCUP PO SCH ×4 (08:40→22:36)
[2019-10-11] MEDS: INSULIN REG, HUMAN 100 UNIT/ML 3 ML VIAL (PYX) SUBCUT SCH ×4 (08:40→22:37)
[2019-10-11] MEDS: LUBIPROSTONE 24 MCG CAPSULE PO SCH ×2 (09:59→17:03)
[2019-10-11] MEDS: ERGOCALCIFEROL (VITAMIN D2) 50000 UNIT (1.25 MG) CAPSULE PO SCH (09:59)
[2019-10-11] MEDS: LOSARTAN POTASSIUM 25 MG TABLET PO SCH (09:59)
[2019-10-11] MEDS: ASPIRIN 81 MG TABLET, CHEWABLE PO SCH (10:00)
[2019-10-11] MEDS: MONTELUKAST SODIUM 10 MG TABLET PO SCH (10:00)
[2019-10-11] MEDS: CLOPIDOGREL BISULFATE 75 MG TABLET PO SCH (10:00)
[2019-10-11] MEDS: ISOSORBIDE MONONITRATE 60 MG TAB.ER.24H PO SCH (10:00)
[2019-10-11] MEDS: DOCUSATE SODIUM 100 MG CAPSULE PO SCH (10:00)
[2019-10-11] MEDS: AMLODIPINE BESYLATE 2.5 MG TABLET PO SCH (10:00)
[2019-10-11] MEDS: DIAZEPAM 5 MG TABLET PO SCH (10:00)
[2019-10-11] MEDS: METOPROLOL SUCCINATE 25 MG TAB.SR.24H PO SCH (10:00)
[2019-10-11] MEDS: LORATADINE 10 MG TABLET PO SCH (10:00)
[2019-10-11] MEDS: FUROSEMIDE 40 MG TABLET PO SCH (10:00)
[2019-10-11] MEDS: HYDROCORTISONE 1% CREAM 28.35 GM TP SCH ×2 (10:01→17:03)
[2019-10-11] MEDS: SITAGLIPTIN PHOSPHATE 25 MG TABLET PO SCH (10:01)
[2019-10-11] MEDS: POLYVINYL ALCOHOL 1.4% OPH SOLN 15 ML OU PRN (10:01)
[2019-10-11] MEDS: ACETAMINOPHEN 325 MG TABLET PO PRN (12:39)
[2019-10-11] MEDS: GUAIFENESIN/D-METHORPHAN (200-20 MG) SYRUP 10 ML PO PRN (12:39)
--- NOTE | 2019-10-11 12:39 | PDOC PROGRESS REPORT ---
Subjective Progress Note for:: 10/11/19 Subjective:: PRECIOUS BURCH is a 74 year old female with a very complex past medical history including grade 2/4 diastolic heart failure, chronic obstructive pulmonary disease, chronic renal failure as well as diabetes mellitus type 2. Approximately 3 weeks ago she saw her primary care provider, Dr. Wilson, for breathing difficulties. Chest x-ray did not reveal pneumonia and a Z-Matt and prednisone were given for bronchitis. The patient finished the course of medications and felt somewhat better temporarily and then she noticed that her breathing was slowly getting worse. Over the last several days especially she has had a nonproductive cough. She thinks that she had a fever last week. She has also noticed mucus from her nose (rhinorrhea). Other symptoms include postnasal drip and a sense of fullness in her ears. She also complains of a sore throat. Her oxygen saturation has been normal on her baseline 2.5 L/min nasal cannula. Her work-up in the emergency department revealed acute on chronic kidney failure, and elevated brain natruretic peptide as well as shortness of breath. She is normally on 2.5 L by nasal cannula oxygen at home and has normal pulse oximetry on the same amount of oxygen in the emergency department. She was referred to the hospital service for admission. 10/09/2019. No acute events overnight. Complaining of abdominal distention. Passing flatus. Has not had a bowel movement. Complaining of generalized fatigue. Denies any fever, chills, nausea, vomiting. 10/10/2019. Patient is still complaining of abdominal distention, nausea, constipation and generalized fatigue, denies fever, chills, shortness of breath, chest pain, diarrhea or any vomiting. 10/11/2019. Patient had 2 bowel movements yesterday, still complaining of nausea, abdominal distention and generalized fatigue and cough denies any shortness of breath, chest pain, diarrhea or any urinary symptoms. Reason For Visit: ACUTE ON CHRONIC KIDNEY FAILURE Physical Exam Vital Signs: Temp Pulse Resp BP Pulse Ox 98.4 F 67 20 109/31 L 96 10/11/19 11:08 10/11/19 11:08 10/11/19 11:08 10/11/19 11:08 10/11/19 11:08 Intake & Output 10/10/19 10/11/19 10/12/19 06:59 06:59 06:59 Intake Total 942 1792 240 Output Total 600 1400 Balance 342 392 240 Weight 101.5 kg 104.1 kg General appearance: PRESENT: morbidly obese Head exam: PRESENT: atraumatic, normocephalic Respiratory exam: PRESENT: clear to auscultation cheli. ABSENT: rales, rhonchi, wheezes Cardiovascular exam: PRESENT: RRR. ABSENT: diastolic murmur, rubs, systolic murmur GI/Abdominal exam: PRESENT: distended, normal bowel sounds, soft. ABSENT: guarding, mass, organolmegaly, rebound, tenderness Neurological exam: PRESENT: alert, awake, oriented to person, oriented to place, oriented to time, oriented to situation, CN II-XII grossly intact. ABSENT: motor sensory deficit Results Laboratory Results: 10/11/19 05:41 10/11/19 05:41 10/10/19 10/10/19 10/11/19 09:41 21:15 05:41 WBC 4.7 3.5 L RBC 2.91 L 2.70 L Hgb 9.0 L 8.4 L Hct 27.3 L 25.1 L MCV 94 93 MCH 30.9 31.1 MCHC 32.9 33.4 RDW 17.6 H 17.7 H Plt Count 74 L 68 L Seg Neutrophils % 66.6 60.5 Sodium Potassium Chloride Carbon Dioxide Anion Gap BUN Creatinine Est GFR ( Amer) Glucose Calcium Phosphorus Magnesium Total Bilirubin AST Alkaline Phosphatase Total Protein Albumin Blood Type O POSITIVE Antibody Screen POSITIVE 10/11/19 05:41 WBC RBC Hgb Hct MCV MCH MCHC RDW Plt Count Seg Neutrophils % Sodium 137.5 Potassium 5.7 H Chloride 109 H Carbon Dioxide 21 L Anion Gap 8 BUN 66 H Creatinine 3.30 H Est GFR ( Amer) 17 L Glucose 145 H Calcium 8.0 L Phosphorus 5.2 H Magnesium 2.3 Total Bilirubin 0.4 AST 28 Alkaline Phosphatase 54 Total Protein 5.7 L Albumin 2.8 L Blood Type Antibody Screen 10/06/19 12:23 Blood Blood Culture - Final NO GROWTH IN 5 DAYS 10/06/19 12:23 Troponin I 0.020 NT-Pro-B Natriuret Pep 6270 H Impressions: Chest X-Ray 10/06/19 11:47 IMPRESSION: No acute findings Assessment and Plan - Diagnosis (1) Hypoglycemia Is this a current diagnosis for this admission?: Yes Plan: Patient has low appetite. This is likely due to combination of low p.o. intake and decrease insulin demand due to worsening kidney function. DC insulin for now. Hypoglycemia protocol. Accu-Chek. Encourage p.o. intake. Adjust insulin doses. Restart insulin and adjust dosage once patient hypoglycemia improves. (2) Hyperkalemia Is this a current diagnosis for this admission?: Yes Plan: Mild improvement. Chronic persistent. No acute EKG changes. Likely due to worsening renal function. Takes Veltassa at home. Continue home meds, continue telemetry, hyperkalemia protocol. (3) Acute on chronic diastolic (congestive) heart failure Is this a current diagnosis for this admission?: Yes Plan: History of 2/4 diastolic heart failure from an echocardiogram in January 2019. Continue strict in and out, diuretics, JOSE, beta-blockers, daily weight. Outpatient PCP follow-up. (4) Acute worsening of stage 4 chronic kidney disease Is this a current diagnosis for this admission?: Yes Plan: Nonoliguric. Creatinine at baseline. Electrolytes WNL except for hyperkalemia. Sees Dr. Serra as outpatient. Monitor electrolytes and volume status. Replace electrolytes as needed. Avoid nephrotoxic meds. Optimize BP and diabetic control. Outpatient nephrology and PCP follow-up. (5) CAD (coronary artery disease) Qualifiers: Coronary Disease-Associated Artery/Lesion type: chilkat artery [place] vs. transplanted heart: chilkat heart Associated angina: without angina Qualified Code(s): I25.10 - Atherosclerotic heart disease of chilkat coronary artery without angina pectoris Is this a current diagnosis for this admission?: Yes Plan: Extensive cardiac history. Status post CABG and recent cardiac catheterization. Denies any anginal symptoms. Continue beta-blockers, JOSE, DAPT. Outpatient PCP and cardiology follow-up. (6) COPD exacerbation Is this a current diagnosis for this admission?: Yes Plan: History of COPD not on home oxygen. Continue duo nebs, flutter valve, incentive spirometry, LMA, ICS, IV steroids, LABA. (7) Diabetes mellitus type 2 in obese Is this a current diagnosis for this admission?: Yes Plan: Noted to be hypoglycemic on this admission. Likely due to low p.o. intake and worsening kidney function. Discontinue insulin, continue diabetic diet, lighting scale insulin, adjust dosage as needed. Hypoglycemic protocol. Accu-Chek. (8) Morbid obesity with BMI of 40.0-44.9, adult Is this a current diagnosis for this admission?: Yes Plan: BMI of 43.6. Likely candidate for bariatric surgery however due to multiple comorbidities may not be a good candidate. Diet and lifestyle modification recommended. 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 Because of her kidney failure we need to avoid NSAIDs. (10) Anemia in chronic kidney disease (CKD) Qualifiers: Chronic kidney disease stage: stage 4 (severe) Qualified Code(s): N18.4 - Chronic kidney disease, stage 4 (severe); D63.1 - Anemia in chronic kidney disease Is this a current diagnosis for this admission?: Yes Plan: Anemia of CKD. Patient has been receiving Procrit by nephrology in the past. No sign of active bleeding. Patient received 1 PRBC transfusion on this admission. Continue monitoring. Nephrology consulted. Monitor H&H. Supportive transfusions.
[2019-10-11] MEDS: PATIROMER 8.4 GM SUSP PACKET PO SCH (22:36)
[2019-10-11] MEDS: MELATONIN 1 MG TABLET PO SCH (22:37)
[2019-10-11] MEDS: MELATONIN 3 MG TABLET PO SCH (22:37)
[2019-10-12] MEDS: DIPHENHYDRAMINE HCL 25 MG CAPSULE PO SCH ×4 (00:18→17:15)
[2019-10-12] MEDS: IPRATROPIUM/ALBUTEROL 0.5-2.5 MG/3 ML AMPUL NEB SCH ×4 (01:52→19:56)
[2019-10-12 04:20] LABS: ABSOLUTE EOSINOPHILS # (AUTO) 0.2 10^3/uL (0.0-0.6); ABSOLUTE LYMPHOCYTES (AUTO) 0.8 10^3/uL (0.5-4.7); ABSOLUTE MONOCYTES (AUTO) 0.5 10^3/uL (0.1-1.4); ABSOLUTE NEUT (AUTO) 2.9 10^3/uL (1.7-8.2); BASOPHILS % (AUTO) 0.5 % (0-2); EOSINOPHILS % (AUTO) 4.9 % (0-6); HEMATOCRIT 26.1 % (36.0-47.0); HEMOGLOBIN 8.5 g/dL (12.0-15.5); LYMPHOCYTES % (AUTO) 18.5 % (13-45); MEAN CORPUSCULAR HEMOGLOBIN 30.7 pg (27.0-33.4); MEAN CORPUSCULAR HGB CONC 32.7 g/dL (32.0-36.0); MEAN CORPUSCULAR VOLUME 94 fl (80-97); MONOCYTES % (AUTO) 11.9 % (3-13); RED BLOOD COUNT 2.78 10^6/uL (3.72-5.28); RED CELL DISTRIBUTION WIDTH 17.2 % (11.5-14.0); SEGMENTED NEUTROPHILS % (AUTO) 64.2 % (42-78); TOTAL CELLS COUNTED % (AUTO) 100 %; WHITE BLOOD COUNT 4.5 10^3/uL (4.0-10.5)
[2019-10-12 04:36] LABS: ALBUMIN 2.8 g/dL (3.5-5.0); ALKALINE PHOSPHATASE 53 U/L (38-126); ANION GAP 7 (5-19); ASPARTATE AMINO TRANSFERASE 25 U/L (14-36); BILIRUBIN,DIRECT 0.3 mg/dL (0.0-0.4); BILIRUBIN,TOTAL 0.6 mg/dL (0.2-1.3); BLOOD UREA NITROGEN 67 mg/dL (7-20); CARBON DIOXIDE 21 mmol/L (22-30); CHLORIDE 109 mmol/L (98-107); GLUCOSE 122 mg/dL (75-110); POTASSIUM 5.4 mmol/L (3.6-5.0); TOTAL PROTEIN 5.8 g/dL (6.3-8.2)
[2019-10-12 04:48] LABS: PLATELET COUNT 76 10^3/uL (150-450)
[2019-10-12] MEDS: HEPARIN SOD (PORCINE) 5,000 UNIT/ML 1 ML VIAL SUBCUT SCH ×2 (05:28→13:18)
[2019-10-12] MEDS: GABAPENTIN 300 MG CAPSULE PO SCH (06:01)
[2019-10-12] MEDS: PANTOPRAZOLE SODIUM 40 MG TABLET.DR PO SCH ×2 (06:01→16:01)
[2019-10-12] MEDS: OXYCODONE-ACETAMINOPHEN 5-325 MG TABLET PO PRN ×2 (06:01→17:15)
[2019-10-12] MEDS: BUDESONIDE NEB 0.5 MG/2 ML AMPUL NEB SCH ×2 (07:47→19:56)
[2019-10-12] MEDS: INSULIN REG, HUMAN 100 UNIT/ML 3 ML VIAL (PYX) SUBCUT SCH ×3 (07:54→16:01)
[2019-10-12] MEDS: SODIUM POLYSTYRENE SULFONATE 15 GM/60 ML PO SCH (08:39)
[2019-10-12] MEDS: METOCLOPRAMIDE HCL ORAL SOLN 10 MG/10 ML UDCUP PO SCH ×2 (08:39→10:05)
[2019-10-12] MEDS: CALCITRIOL 0.25 MCG CAPSULE PO SCH (10:04)
[2019-10-12] MEDS: LUBIPROSTONE 24 MCG CAPSULE PO SCH ×2 (10:04→17:15)
[2019-10-12] MEDS: MONTELUKAST SODIUM 10 MG TABLET PO SCH (10:04)
[2019-10-12] MEDS: DIAZEPAM 5 MG TABLET PO SCH (10:04)
[2019-10-12] MEDS: ISOSORBIDE MONONITRATE 60 MG TAB.ER.24H PO SCH (10:04)
[2019-10-12] MEDS: DOCUSATE SODIUM 100 MG CAPSULE PO SCH (10:04)
[2019-10-12] MEDS: FUROSEMIDE 40 MG TABLET PO SCH (10:04)
[2019-10-12] MEDS: CLOPIDOGREL BISULFATE 75 MG TABLET PO SCH (10:05)
[2019-10-12] MEDS: LOSARTAN POTASSIUM 25 MG TABLET PO SCH (10:05)
[2019-10-12] MEDS: METOPROLOL SUCCINATE 25 MG TAB.SR.24H PO SCH (10:05)
[2019-10-12] MEDS: AMLODIPINE BESYLATE 2.5 MG TABLET PO SCH (10:05)
[2019-10-12] MEDS: LORATADINE 10 MG TABLET PO SCH (10:05)
[2019-10-12] MEDS: ASPIRIN 81 MG TABLET, CHEWABLE PO SCH (10:05)
[2019-10-12] MEDS: HYDROCORTISONE 1% CREAM 28.35 GM TP SCH ×2 (10:06→17:15)
[2019-10-12] MEDS: POLYVINYL ALCOHOL 1.4% OPH SOLN 15 ML OU PRN (10:06)
[2019-10-12] MEDS: SITAGLIPTIN PHOSPHATE 25 MG TABLET PO SCH (10:06)
--- NOTE | 2019-10-12 11:20 | PDOC PROGRESS REPORT ---
Subjective Progress Note for:: 10/12/19 Subjective:: PRECIOUS BURCH is a 74 year old female with a very complex past medical history including grade 2/4 diastolic heart failure, chronic obstructive pulmonary disease, chronic renal failure as well as diabetes mellitus type 2. Approximately 3 weeks ago she saw her primary care provider, Dr. Wilson, for breathing difficulties. Chest x-ray did not reveal pneumonia and a Z-Matt and prednisone were given for bronchitis. The patient finished the course of medications and felt somewhat better temporarily and then she noticed that her breathing was slowly getting worse. Over the last several days especially she has had a nonproductive cough. She thinks that she had a fever last week. She has also noticed mucus from her nose (rhinorrhea). Other symptoms include postnasal drip and a sense of fullness in her ears. She also complains of a sore throat. Her oxygen saturation has been normal on her baseline 2.5 L/min nasal cannula. Her work-up in the emergency department revealed acute on chronic kidney failure, and elevated brain natruretic peptide as well as shortness of breath. She is normally on 2.5 L by nasal cannula oxygen at home and has normal pulse oximetry on the same amount of oxygen in the emergency department. She was referred to the hospital service for admission. 10/09/2019. No acute events overnight. Complaining of abdominal distention. Passing flatus. Has not had a bowel movement. Complaining of generalized fatigue. Denies any fever, chills, nausea, vomiting. 10/10/2019. Patient is still complaining of abdominal distention, nausea, constipation and generalized fatigue, denies fever, chills, shortness of breath, chest pain, diarrhea or any vomiting. 10/11/2019. Patient had 2 bowel movements yesterday, still complaining of nausea, abdominal distention and generalized fatigue and cough denies any shortness of breath, chest pain, diarrhea or any urinary symptoms. 10/12/2019. No acute events overnight. Patient still complaining of abdominal distention however she has had 2 bowel movements, nausea is improved, patient has a healthy appetite, denies any fever, chest pain, shortness of breath, nausea, vomiting, urinary symptoms. Reason For Visit: ACUTE ON CHRONIC KIDNEY FAILURE Physical Exam Vital Signs: Temp Pulse Resp BP Pulse Ox 97.9 F 64 14 145/43 H 99 10/12/19 08:00 10/12/19 08:00 10/12/19 08:00 10/12/19 08:00 10/12/19 08:00 Intake & Output 10/11/19 10/12/19 10/13/19 06:59 06:59 06:59 Intake Total 1792 600 Output Total 1400 1100 Balance 392 -500 Weight 104.1 kg 101.8 kg General appearance: PRESENT: morbidly obese Respiratory exam: PRESENT: clear to auscultation cheli. ABSENT: rales, rhonchi, wheezes Cardiovascular exam: PRESENT: RRR. ABSENT: diastolic murmur, rubs, systolic murmur GI/Abdominal exam: PRESENT: distended, normal bowel sounds Neurological exam: PRESENT: alert, awake, oriented to person, oriented to place, oriented to time, oriented to situation, CN II-XII grossly intact. ABSENT: motor sensory deficit Results Laboratory Results: 10/12/19 04:01 10/12/19 04:01 10/12/19 10/12/19 04:01 04:01 WBC 4.5 RBC 2.78 L Hgb 8.5 L Hct 26.1 L MCV 94 MCH 30.7 MCHC 32.7 RDW 17.2 H Plt Count 76 L Seg Neutrophils % 64.2 Sodium 137.2 Potassium 5.4 H Chloride 109 H Carbon Dioxide 21 L Anion Gap 7 BUN 67 H Creatinine 3.06 H Est GFR ( Amer) 18 L Glucose 122 H Calcium 8.0 L Total Bilirubin 0.6 AST 25 Alkaline Phosphatase 53 Total Protein 5.8 L Albumin 2.8 L 10/06/19 13:05 Blood Blood Culture - Final NO GROWTH IN 5 DAYS 10/06/19 12:23 Blood Blood Culture - Final NO GROWTH IN 5 DAYS 10/06/19 12:23 Troponin I 0.020 NT-Pro-B Natriuret Pep 6270 H Impressions: Chest X-Ray 10/06/19 11:47 IMPRESSION: No acute findings Assessment and Plan - Diagnosis (1) Hypoglycemia Is this a current diagnosis for this admission?: Yes Plan: Improving. Patient has low appetite. This is likely due to combination of low p.o. intake and decrease insulin demand due to worsening kidney function. DC insulin for now. Hypoglycemia protocol. Accu-Chek. Encourage p.o. intake. Adjust insulin doses. Restart insulin and adjust dosage once patient hypoglycemia improves. (2) Hyperkalemia Is this a current diagnosis for this admission?: Yes Plan: Mild improvement. Chronic persistent. No acute EKG changes. Likely due to worsening renal function. Takes Veltassa at home. Switch Veltassa to Kayexalate as patient does not respond very well to Veltassa. Continue telemetry, hyperkalemia protocol. (3) Acute on chronic diastolic (congestive) heart failure Is this a current diagnosis for this admission?: Yes Plan: History of 2/4 diastolic heart failure from an echocardiogram in January 2019. Continue strict in and out, diuretics, JOSE, beta-blockers, daily weight. Outpatient PCP follow-up. (4) Acute worsening of stage 4 chronic kidney disease Is this a current diagnosis for this admission?: Yes Plan: Improving. Nonoliguric. Creatinine at baseline. Electrolytes WNL except for hyperkalemia. Sees Dr. Serra as outpatient. Monitor electrolytes and volume status. Replace electrolytes as needed. Avoid nephrotoxic meds. Optimize BP and diabetic control. Outpatient nephrology and PCP follow-up. (5) CAD (coronary artery disease) Qualifiers: Coronary Disease-Associated Artery/Lesion type: chilkat artery [place] vs. transplanted heart: chilkat heart Associated angina: without angina Qualified Code(s): I25.10 - Atherosclerotic heart disease of [place] coronary artery without angina pectoris Is this a current diagnosis for this admission?: Yes Plan: Extensive cardiac history. Status post CABG and recent cardiac catheterization. Denies any anginal symptoms. Continue beta-blockers, JOSE, DAPT. Outpatient PCP and cardiology follow-up. (6) COPD exacerbation Is this a current diagnosis for this admission?: Yes Plan: History of COPD not on home oxygen. Continue duo nebs, flutter valve, incentive spirometry, LMA, ICS, IV steroids, LABA. (7) Diabetes mellitus type 2 in obese Is this a current diagnosis for this admission?: Yes Plan: Noted to be hypoglycemic on this admission. Likely due to low p.o. intake and worsening kidney function. Discontinue insulin, continue diabetic diet, lighting scale insulin, adjust dosage as needed. Hypoglycemic protocol. Accu-Chek. (8) Morbid obesity with BMI of 40.0-44.9, adult Is this a current diagnosis for this admission?: Yes Plan: BMI of 43.6. Likely candidate for bariatric surgery however due to multiple comorbidities may not be a good candidate. Diet and lifestyle modification recommended. 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 Because of her kidney failure we need to avoid NSAIDs. (10) Anemia in chronic kidney disease (CKD) Qualifiers: Chronic kidney disease stage: stage 4 (severe) Qualified Code(s): N18.4 - Chronic kidney disease, stage 4 (severe); D63.1 - Anemia in chronic kidney disease Is this a current diagnosis for this admission?: Yes Plan: Anemia of CKD. Patient has been receiving Procrit by nephrology in the past. No sign of active bleeding. Patient received 1 PRBC transfusion on this admission. Continue monitoring. Nephrology consulted. Monitor H&H. Supportive t ransfusions.
--- NOTE | 2019-10-12 14:15 | PDOC CONSULTATION ---
Consultation Consult Date: 10/12/19 Provider Consulted: Shira YE Consult reason:: Acute on CKD 4 with underlying heart failure. History of Present Illness Admission Date/PCP: 10/06/19 14:55 CARLOS LARSON MD History of Present Illness: PRECIOUS BURCH is a 74 year old female Medical history of underlying diabetes mellitus, hypertension, CKD stage IV with base creatinine of 2.5 was admitted with history of progressive shortness of breath in association with progressive edema of a months duration. She admits to dietary indiscretions. She denies any history of chest pains. Apparently has had a chronic cough made worse on lying down. No history of any fever chills or hemoptysis. Currently since admission she feels some better but still is decompensated and is short of breath with minimal exertion. Swelling especially in the lower extremities still persistent. Labs and medications were reviewed.She is got a history of underlying CAD and has underwent CABG. Apparently she underwent cardiac catheterization couple months ago and patient mentions that it was clean with no obstructive lesions that were detected. I did review an echocardiogram done earlier this year in January which showed normal LV ejection fraction of 65%, mild diastolic 2/4 dysfunction.Poor right heart views given her body habitus.Labs and medications were reviewed. Past Medical History Cardiac Medical History: Reports: Coronary Artery Disease - CABG in 2001, Hyperlipidemia, Hypertension-primary, Myocardial Infarction Denies: Atrial Fibrillation, DVT, Pulmonary Embolism Pulmonary Medical History: Reports: Asthma, Bronchitis, Chronic Obstructive Pulmonary Disease (COPD), Pneumonia, Respiratory Failure, Sleep Apnea - no cpap insurance does not cover Denies: Tuberculosis Neurological Medical History: Denies: Seizures Endocrine Medical History: Reports: Diabetes Mellitus Type 2 Denies: Diabetes Mellitus Type 1, Hyperthyroidism, Hypothyroidism Renal/ Medical History: Reports: Chronic Kidney Disease Stage IV, Secondary Hyperparathyroidism Denies: Benign Prostatic Hyperplasia GI Medical History: Denies: Cirrhosis, Gastroesophageal Reflux Disease, Hepatitis Musculoskeltal Medical History: Reports: Arthritis Denies: Gout, Rheumatoid Arthritis, Systemic Lupus Erythematosus Skin Medical History: Denies: Eczema, Psoriasis Psychiatric Medical History: Reports: Depression Denies: Bipolar Disorder Hematology Medical History: Reports Anemia of Chronic Kidney Disease Past Surgical History Past Surgical History: Reports: Cardiac Catheterization, Section, Cholecystectomy, Coronary Stent, Gastric Bypass Surgery - 2001, Hysterectomy, Tubal Ligation Social History Lives with: Spouse/Significant other Smoking Status: Former Smoker - Quit 22 years ago Electronic Cigarette use?: No Frequency of Alcohol Use: None Hx Recreational Drug Use: No Drugs: None Hx Prescription Drug Abuse: No - Advance Directive Resuscitation Status: Do Not Resuscitate Family History Parental Family History Reviewed: Yes - Negative for ESRD Children Family History Reviewed: No Sibling(s) Family History Reviewed.: No Medication/Allergy Home Medications: Albuterol Sulfate [Proair HFA Inhalation Aerosol 8.5 gm MDI] 2 puff IH DAILY 07/29/19 Albuterol Sulfate [Ventolin 0.083% Neb 2.5 mg/3 mL Ampul] 3 ml NEB Q6HP PRN 07/29/19 Amlodipine Besylate [Norvasc 2.5 mg Tablet] 2.5 mg PO Q12 07/29/19 Aspirin [Aspirin 81 mg Chewable Tablet] 81 mg PO DAILY 07/29/19 Calcitriol [Rocaltrol 0.25 mcg Capsule] 0.25 mcg PO MOWEFR@1000 07/29/19 Clopidogrel Bisulfate [Plavix 75 mg Tablet] 75 mg PO DAILY 07/29/19 Diazepam [Valium 5 mg Tablet] 5 mg PO DAILY 07/29/19 Diphenhydramine HCl [Diphenhist] 25 mg PO Q6 07/29/19 Docusate Sodium [Colace 100 mg Capsule] 100 mg PO DAILY 07/29/19 Epoetin Aung [Procrit Inj 20,000 Unit/1 ml Vial (Renal)] 10,000 unit IM Q7D 07/29/19 Ergocalciferol (Vitamin D2) [Drisdol 50,000 unit (1.25MG) Capsule] 50,000 unit PO BALDERRAMA@1000 07/29/19 Fenofibrate 160 mg PO DAILY 07/29/19 Fluticasone/Salmeterol [Advair 250-50 Diskus 14 Dose/Diskus] 1 puff IH Q12 07/29/19 Gabapentin [Neurontin] 600 mg PO Q12 07/29/19 Hydroxyzine Pamoate [Vistaril 50 mg Capsule] 50 mg PO TIDP PRN 07/29/19 Insulin Glargine,Hum.rec.anlog [Basaglar Kwikpen U-100] 50 units SQ Q12 07/29/19 Iron Ps Complex/B12/Folic Acid [Ferrex 150 Forte Capsule] 1 cap PO DAILY 07/29/19 Isosorbide Mononitrate [Imdur 60 mg Tablet.er] 60 mg PO DAILY 07/29/19 Linaclotide [Linzess] 72 mcg PO DAILY 07/29/19 Loperamide HCl [Imodium A-D] 2 mg PO DAILYP PRN 07/29/19 Loratadine [Claritin 10 mg Tablet] 10 mg PO DAILY 07/29/19 Melatonin 5 mg SL QHS 07/29/19 Metoprolol Succinate [Toprol Xl 25 mg Tab.sr] 25 mg PO DAILY 07/29/19 Montelukast Sodium [Singulair 10 mg Tablet] 10 mg PO DAILY 07/29/19 Nitroglycerin 0.4 mg SL Q5HP PRN 07/29/19 Omeprazole 40 mg PO BID 07/29/19 Ondansetron HCl [Zofran 4 mg Tablet] 4 mg PO DAILY 07/29/19 Oxycodone HCl/Acetaminophen [Percocet 5-325 mg Tablet] 1 tab PO Q6HP PRN 07/29 Patiromer Calcium Sorbitex [Veltassa] 16.8 gm PO DAILY 07/29/19 Polyvinyl Alcohol [Artificial Tears] 1 drop OU Q2HP PRN 07/29/19 Promethazine HCl [Phenergan 25 mg Tablet] 25 mg PO QHS 07/29/19 Rosuvastatin Calcium [Crestor] 40 mg PO QHS 07/29/19 Sitagliptin Phosphate [Januvia] 100 mg PO DAILY 07/29/19 Telmisartan [Micardis 20 mg Tablet] 20 mg PO DAILY 07/29/19 Tiotropium Gary [Spiriva Handihaler 5 Cap/Kit (18 Mcg/Cap)] 1 puff IH DAILY 07/29/19 Furosemide [Lasix 40 mg Tablet] 40 mg PO DAILY 10/06/19 Allergies/Adverse Reactions: amoxicillin trihydrate [From Augmentin] Allergy (Severe, Verified 04/29/19 17:21) stomach cramps, n and v, rash butalbital [From Fiorinal] Allergy (Unknown, Verified 04/29/19 17:21) rash metformin HCl [From Glucophage] Allergy (Unknown, Verified 04/29/19 17:21) rash Potassium Clavulanate * [From Augmentin] Adverse Reaction (Unknown, Verified 04/29/19 17:21) nausea, vomit, epig pain Review of Systems Constitutional: PRESENT: anorexia, fatigue, weakness. ABSENT: fever(s), headache(s), night sweats Nose, Mouth, and Throat: ABSENT: mouth pain, sore throat Cardiovascular: PRESENT: dyspnea on exertion, edema. ABSENT: chest pain, orthropnea, palpitations Respiratory: PRESENT: cough, dyspnea. ABSENT: hemoptysis, sputum Gastrointestinal: ABSENT: abdominal pain, bloating, coffee ground emesis, diarrhea, dysphagia, heartburn, nausea, vomiting Genitourinary: ABSENT: hematuria Musculoskeletal: ABSENT: deformity, joint swelling Integumentary: ABSENT: erythema, lesions, pruritus, rash Neurological: ABSENT: abnormal speech, confusion, convulsions, focal weakness, frequent falls, lack of coordination, paresthesias Hematologic/Lymphatic: ABSENT: easy bleeding, easy bruising, lymphadenopathy Physical Exam Vital Signs: Temp Pulse Resp BP Pulse Ox 97.7 F 69 14 123/45 L 98 10/12/19 11:24 10/12/19 11:24 10/12/19 11:24 10/12/19 11:24 10/12/19 11:24 Intake & Output 10/11/19 10/12/19 10/13/19 06:59 06:59 06:59 Intake Total 1792 600 Output Total 1400 1100 Balance 392 -500 Weight 104.1 kg 101.8 kg General appearance: PRESENT: mild distress Eye exam: PRESENT: EOMI, PERRLA Ear exam: PRESENT: normal external ear exam Mouth exam: PRESENT: moist, neck supple Neck exam: ABSENT: lymphadenopathy, meningismus, tenderness, thyromegaly, tracheal deviation Respiratory exam: PRESENT: clear to auscultation cheli, crackles, decreased breath sounds Cardiovascular exam: PRESENT: +S1, +S2 GI/Abdominal exam: PRESENT: distended, normal bowel sounds, soft. ABSENT: firm, organomegaly, tenderness Extremities exam: PRESENT: +2 edema Neurological exam: PRESENT: alert, awake, oriented to person, oriented to place, oriented to time Psychiatric exam: PRESENT: appropriate affect Skin exam: ABSENT: cyanosis, erythema, mottled, rash Results Laboratory Results: 10/12/19 04:01 10/12/19 04:01 10/12/19 10/12/19 04:01 04:01 WBC 4.5 RBC 2.78 L Hgb 8.5 L Hct 26.1 L MCV 94 MCH 30.7 MCHC 32.7 RDW 17.2 H Plt Count 76 L Seg Neutrophils % 64.2 Sodium 137.2 Potassium 5.4 H Chloride 109 H Carbon Dioxide 21 L Anion Gap 7 BUN 67 H Creatinine 3.06 H Est GFR ( Amer) 18 L Glucose 122 H Calcium 8.0 L Total Bilirubin 0.6 AST 25 Alkaline Phosphatase 53 Total Protein 5.8 L Albumin 2.8 L 10/06/19 13:05 Blood Blood Culture - Final NO GROWTH IN 5 DAYS 10/06/19 12:23 Blood Blood Culture - Final NO GROWTH IN 5 DAYS 10/06/19 12:23 Troponin I 0.020 NT-Pro-B Natriuret Pep 6270 H Impressions: Chest X-Ray 10/06/19 11:47 IMPRESSION: No acute findings Assessment & Plan - Diagnosis (1) CHF (congestive heart failure) Qualifiers: Heart failure type: unspecified Heart failure chronicity: acute on chronic Qualified Code(s): I50.9 - Heart failure, unspecified Plan: Old echocardiogram done earlier this year showed stage II/IV diastolic heart failure with poor windows to her right heart. Clinically she looks to be in biventricular heart failure with decompensation. Titrate her medications especially diuretics. See the response to medications before considering any other form of modality including renal replacements as an option. (2) Acute worsening of stage 4 chronic kidney disease Is this a current diagnosis for this admission?: Yes Plan: Patient has got worsening renal functions in association with congestive heart failure which clinically looks to be biventricular. Patient's decompensation though better is still present. I am going to increase her IV diuretics and monitor. See the response to that. Currently no indications for renal replacements which might be a factor if she is not responding to appropriate changes in her medications.Discussed this with the patient and her who understands. (3) Anemia of chronic renal failure, stage 4 (severe) Is this a current diagnosis for this admission?: Yes Plan: Patient has been on erythropoietin as an outpatient. We will continue on that. However will get iron studies prior to that. (4) Hyperkalemia Is this a current diagnosis for this admission?: Yes Plan: See the response to diuretics. Continue on Kayexalate in the meanwhile. (5) Diabetes mellitus type 2 in obese Is this a current diagnosis for this admission?: Yes Plan: Advised tight control. (6) Diastolic heart failure Plan: As per echo done in January 2019. Poor right heart windows unfortunately. (7) Hypertension Plan: Well-controlled. DC amlodipine. (8) Morbid obesity with BMI of 40.0-44.9, adult Is this a current diagnosis for this admission?: Yes Plan: Baseline.
[2019-10-12] MEDS: FUROSEMIDE 20 MG TABLET PO SCH (16:01)
[2019-10-12] MEDS ORDERED: MELATONIN 5 MG TABLET PO ONE (23:00)
[2019-10-13] MEDS: DIPHENHYDRAMINE HCL 25 MG CAPSULE PO SCH ×5 (00:17→23:26)
[2019-10-13] MEDS: FUROSEMIDE 20 MG TABLET PO SCH ×2 (00:17→05:16)
[2019-10-13] MEDS: INSULIN REG, HUMAN 100 UNIT/ML 3 ML VIAL (PYX) SUBCUT SCH ×5 (00:18→22:09)
[2019-10-13] MEDS: SODIUM POLYSTYRENE SULFONATE 15 GM/60 ML PO SCH (00:18)
[2019-10-13] MEDS: HEPARIN SOD (PORCINE) 5,000 UNIT/ML 1 ML VIAL SUBCUT SCH ×4 (00:19→23:26)
[2019-10-13] MEDS: IPRATROPIUM/ALBUTEROL 0.5-2.5 MG/3 ML AMPUL NEB SCH ×4 (02:15→20:43)
[2019-10-13] MEDS: OXYCODONE-ACETAMINOPHEN 5-325 MG TABLET PO PRN (04:06)
[2019-10-13 04:34] LABS: ABSOLUTE RETICS # 0.106 10^6/uL (0.028-0.122); HEMATOCRIT 25.4 % (36.0-47.0); HEMOGLOBIN 8.5 g/dL (12.0-15.5); MEAN CORPUSCULAR HEMOGLOBIN 31.1 pg (27.0-33.4); MEAN CORPUSCULAR HGB CONC 33.3 g/dL (32.0-36.0); MEAN CORPUSCULAR VOLUME 94 fl (80-97); RED BLOOD COUNT 2.72 10^6/uL (3.72-5.28); RED CELL DISTRIBUTION WIDTH 16.9 % (11.5-14.0); RETICULOCYTE COUNT (AUTO) 3.91 % (0.66-2.85); WHITE BLOOD COUNT 4.8 10^3/uL (4.0-10.5)
[2019-10-13 04:51] LABS: ANION GAP 7 (5-19); BLOOD UREA NITROGEN 61 mg/dL (7-20); CALCIUM 8.1 mg/dL (8.4-10.2); CARBON DIOXIDE 22 mmol/L (22-30); CHLORIDE 109 mmol/L (98-107); GLUCOSE 172 mg/dL (75-110); IRON(TIBC) 32.4 ug/dL (37-170); PHOSPHORUS 4.4 mg/dL (2.5-4.5); PLATELET COUNT 80 10^3/uL (150-450); POTASSIUM 5.2 mmol/L (3.6-5.0)
[2019-10-13] MEDS: PANTOPRAZOLE SODIUM 40 MG TABLET.DR PO SCH ×2 (05:16→16:42)
[2019-10-13] MEDS: GABAPENTIN 300 MG CAPSULE PO SCH (05:16)
[2019-10-13 06:55] LABS: FOLATE 6.53 ng/mL (>2.76)
[2019-10-13] MEDS: BUDESONIDE NEB 0.5 MG/2 ML AMPUL NEB SCH ×2 (07:43→20:43)
[2019-10-13] MEDS: SITAGLIPTIN PHOSPHATE 25 MG TABLET PO SCH (09:26)
[2019-10-13] MEDS: ISOSORBIDE MONONITRATE 60 MG TAB.ER.24H PO SCH (09:26)
[2019-10-13] MEDS: LOSARTAN POTASSIUM 25 MG TABLET PO SCH (09:26)
[2019-10-13] MEDS: ASPIRIN 81 MG TABLET, CHEWABLE PO SCH (09:27)
[2019-10-13] MEDS: LUBIPROSTONE 24 MCG CAPSULE PO SCH ×2 (09:27→17:47)
[2019-10-13] MEDS: MONTELUKAST SODIUM 10 MG TABLET PO SCH (09:27)
[2019-10-13] MEDS: METOPROLOL SUCCINATE 25 MG TAB.SR.24H PO SCH (09:27)
[2019-10-13] MEDS: DOCUSATE SODIUM 100 MG CAPSULE PO SCH (09:27)
[2019-10-13] MEDS: DIAZEPAM 5 MG TABLET PO SCH (09:27)
[2019-10-13] MEDS: HYDROCORTISONE 1% CREAM 28.35 GM TP SCH ×2 (09:28→17:48)
[2019-10-13] MEDS: LORATADINE 10 MG TABLET PO SCH (09:28)
[2019-10-13] MEDS ORDERED: FUROSEMIDE 20 MG TABLET PO SCH ×2 (10:00→14:00)
--- NOTE | 2019-10-13 11:17 | PDOC PROGRESS REPORT ---
Subjective Progress Note for:: 10/13/19 Reason For Visit: Patient seen this morning. She is status quo. She continues to have progressive shortness of breath if she exerts. Denies any chest pain or coughing spells. Appetite is good. Bowels are moving. Pedal edema persisting. Labs and medications were reviewed. Intake output was reviewed that shows dropping output. I began on IV Lasix yesterday but does not seems to be adequately responding to that. Physical Exam Vital Signs: Temp Pulse Resp BP Pulse Ox 97.9 F 68 15 122/38 L 95 10/13/19 08:04 10/13/19 08:04 10/13/19 08:04 10/13/19 08:04 10/13/19 08:04 Intake & Output 10/12/19 10/13/19 10/14/19 06:59 06:59 06:59 Intake Total 600 1612 Output Total 1100 250 Balance -500 1362 Weight 101.8 kg 100.2 kg General appearance: PRESENT: no acute distress Respiratory exam: PRESENT: clear to auscultation cheli, crackles, decreased breath sounds Cardiovascular exam: PRESENT: +S1, +S2 GI/Abdominal exam: PRESENT: distended, normal bowel sounds, soft. ABSENT: firm, organomegaly, tenderness Extremities exam: PRESENT: +2 edema Neurological exam: PRESENT: alert, awake, oriented to person, oriented to place Psychiatric exam: PRESENT: appropriate affect Skin exam: ABSENT: cyanosis, erythema, mottled, rash Results Laboratory Results: 10/13/19 03:33 10/13/19 03:33 10/13/19 10/13/19 10/13/19 03:33 03:33 03:33 WBC 4.8 RBC 2.72 L Hgb 8.5 L Hct 25.4 L MCV 94 MCH 31.1 MCHC 33.3 RDW 16.9 H Plt Count 80 L Retic Count (auto) 3.91 H Sodium 138.2 Potassium 5.2 H Chloride 109 H Carbon Dioxide 22 Anion Gap 7 BUN 61 H Creatinine 2.88 H Est GFR ( Amer) 19 L Glucose 172 H Calcium 8.1 L Phosphorus 4.4 Iron 32.4 L TIBC 265 % Saturation 12 Ferritin 356.00 H Vitamin B12 294.0 Folate 6.53 TSH PTH Intact 150.3 H 10/13/19 03:33 WBC RBC Hgb Hct MCV MCH MCHC RDW Plt Count Retic Count (auto) Sodium Potassium Chloride Carbon Dioxide Anion Gap BUN Creatinine Est GFR ( Amer) Glucose Calcium Phosphorus Iron TIBC % Saturation Ferritin Vitamin B12 Folate TSH 3.12 PTH Intact 10/06/19 12:23 Troponin I 0.020 NT-Pro-B Natriuret Pep 6270 H Impressions: Chest X-Ray 10/06/19 11:47 IMPRESSION: No acute findings Assessment & Plan - Diagnosis (1) CHF (congestive heart failure) Qualifiers: Heart failure type: unspecified Heart failure chronicity: acute on chronic Qualified Code(s): I50.9 - Heart failure, unspecified Plan: Diastolic. High probability of right heart failure as well. Patient is still not adequately responding to initiation of IV diuretics. Increase IV Lasix and will also add metolazone. Do not see any indications for initiation of renal replacements and I hope that she will respond to conservative management. (2) Acute worsening of stage 4 chronic kidney disease Is this a current diagnosis for this admission?: Yes Plan: Current creatinine 2.8 and status quo. Nonoliguric. See response to changes done in her medications. No indications for initiation of renal replacement therapy. (3) Anemia of chronic renal failure, stage 4 (severe) Is this a current diagnosis for this admission?: Yes Plan: Erythropoietin. (4) Hyperkalemia Is this a current diagnosis for this admission?: Yes Plan: Mild. Monitor. (5) Diabetes mellitus type 2 in obese Is this a current diagnosis for this admission?: Yes Plan: Advised on diet control. (6) Diastolic heart failure Plan: Currently decompensated. See notes earlier. (7) Hypertension Plan: Well-controlled. Continue current medications. (8) Morbid obesity with BMI of 40.0-44.9, adult Is this a current diagnosis for this admission?: Yes Plan: Status quo.
[2019-10-13] MEDS: ONDANSETRON HCL INJ/PF 4 MG/2 ML SDV IV PRN (12:13)
[2019-10-13] MEDS: METOLAZONE 5 MG TABLET PO SCH (13:05)
[2019-10-13] MEDS: GUAIFENESIN/D-METHORPHAN (200-20 MG) SYRUP 10 ML PO PRN (13:09)
--- NOTE | 2019-10-13 19:09 | PDOC PROGRESS REPORT ---
Subjective Progress Note for:: 10/13/19 Subjective:: Patient was here today she is going to need dialysis. Still occasionally has shortness of breath but at time of exam said he was much improved. Still concerned that her potassium levels are still elevated. Denies any chest pain. Still endorses lower extremity swelling. Reason For Visit: ACUTE ON CHRONIC KIDNEY FAILURE Physical Exam Vital Signs: Temp Pulse Resp BP Pulse Ox 97.8 F 71 15 146/53 H 98 10/13/19 16:00 10/13/19 16:00 10/13/19 16:00 10/13/19 16:00 10/13/19 16:00 Intake & Output 10/12/19 10/13/19 10/14/19 06:59 06:59 06:59 Intake Total 600 1612 926 Output Total 1100 250 350 Balance -500 1362 576 Weight 101.8 kg 100.2 kg General appearance: PRESENT: no acute distress, cooperative Respiratory exam: PRESENT: rales, symmetrical, unlabored. ABSENT: tachypnea, wheezes Cardiovascular exam: PRESENT: RRR, +S1, +S2. ABSENT: systolic murmur, tachycardia GI/Abdominal exam: PRESENT: distended, normal bowel sounds, soft. ABSENT: firm, guarding, rebound, rigid, tenderness Extremities exam: PRESENT: +2 edema Neurological exam: PRESENT: alert, awake, oriented to person, oriented to place, oriented to time Results Laboratory Results: 10/13/19 03:33 10/13/19 03:33 10/13/19 10/13/19 10/13/19 03:33 03:33 03:33 WBC 4.8 RBC 2.72 L Hgb 8.5 L Hct 25.4 L MCV 94 MCH 31.1 MCHC 33.3 RDW 16.9 H Plt Count 80 L Retic Count (auto) 3.91 H Sodium 138.2 Potassium 5.2 H Chloride 109 H Carbon Dioxide 22 Anion Gap 7 BUN 61 H Creatinine 2.88 H Est GFR ( Amer) 19 L Glucose 172 H Calcium 8.1 L Phosphorus 4.4 Iron 32.4 L TIBC 265 % Saturation 12 Ferritin 356.00 H Vitamin B12 294.0 Folate 6.53 TSH PTH Intact 150.3 H 10/13/19 03:33 WBC RBC Hgb Hct MCV MCH MCHC RDW Plt Count Retic Count (auto) Sodium Potassium Chloride Carbon Dioxide Anion Gap BUN Creatinine Est GFR ( Amer) Glucose Calcium Phosphorus Iron TIBC % Saturation Ferritin Vitamin B12 Folate TSH 3.12 PTH Intact 10/06/19 12:23 Troponin I 0.020 NT-Pro-B Natriuret Pep 6270 H Impressions: Chest X-Ray 10/06/19 11:47 IMPRESSION: No acute findings Assessment and Plan - Diagnosis (1) Fluid overload Is this a current diagnosis for this admission?: Yes Plan: Patient still appears quite fluid overloaded secondary to her CKD stage IV. Currently on Lasix p.o. Metolazone added. Inadequate diuresis at this time so I will switch to IV Lasix and monitor response. (2) Acute worsening of stage 4 chronic kidney disease Is this a current diagnosis for this admission?: Yes Plan: Improving. Nonoliguric. Creatinine now closer to baseline. Sees Dr. Serra as outpatient. Nephrology following as inpatient but states that there is no indication for HD at this time. (3) Anemia of chronic renal failure, stage 4 (severe) Is this a current diagnosis for this admission?: Yes Plan: will follow iron studies. (4) COPD exacerbation Is this a current diagnosis for this admission?: Yes Plan: History of COPD not on home oxygen. Continue duo nebs, flutter valve, incentive spirometry, LMA, ICS, IV steroids, LABA. (5) Hyperkalemia Is this a current diagnosis for this admission?: Yes Plan: Mild improvement. Chronic persistent. No acute EKG changes. Likely due to worsening renal function. Takes Veltassa at home. Switched Veltassa to Kayexalate as patient does not respond very well to Veltassa. Continue telemetry, hyperkalemia protocol. (6) Diabetes mellitus type 2 in obese Is this a current diagnosis for this admission?: Yes Plan: Noted to be hypoglycemic on this admission. Likely due to low p.o. intake and worsening kidney function. continue diabetic diet, lighting scale insulin, adjust dosage as needed. Hypoglycemic protocol. Accu-Chek. (7) Morbid obesity with BMI of 45.0-49.9, adult Is this a current diagnosis for this admission?: Yes - Time Time Spent with patient: 15-24 minutes
[2019-10-13] MEDS: FUROSEMIDE INJ/PF 40 MG/4 ML SDV IV SCH (22:09)
[2019-10-13] MEDS: MELATONIN 5 MG TABLET PO SCH (22:10)
[2019-10-14] MEDS: IPRATROPIUM/ALBUTEROL 0.5-2.5 MG/3 ML AMPUL NEB SCH ×4 (02:32→20:18)
[2019-10-14] MEDS: ACETAMINOPHEN 325 MG TABLET PO PRN (05:11)
[2019-10-14] MEDS: FUROSEMIDE INJ/PF 40 MG/4 ML SDV IV SCH ×2 (05:11→13:24)
[2019-10-14] MEDS: GABAPENTIN 300 MG CAPSULE PO SCH (05:11)
[2019-10-14] MEDS: PANTOPRAZOLE SODIUM 40 MG TABLET.DR PO SCH ×2 (05:12→17:22)
[2019-10-14] MEDS: DIPHENHYDRAMINE HCL 25 MG CAPSULE PO SCH ×3 (05:12→17:22)
[2019-10-14] MEDS: HEPARIN SOD (PORCINE) 5,000 UNIT/ML 1 ML VIAL SUBCUT SCH ×2 (05:13→13:25)
[2019-10-14 06:51] LABS: HEMATOCRIT 25.5 % (36.0-47.0); HEMOGLOBIN 8.3 g/dL (12.0-15.5); MEAN CORPUSCULAR HEMOGLOBIN 30.7 pg (27.0-33.4); MEAN CORPUSCULAR HGB CONC 32.4 g/dL (32.0-36.0); MEAN CORPUSCULAR VOLUME 95 fl (80-97); RED CELL DISTRIBUTION WIDTH 16.4 % (11.5-14.0); WHITE BLOOD COUNT 5.2 10^3/uL (4.0-10.5)
[2019-10-14 07:00] LABS: ANION GAP 7 (5-19); BLOOD UREA NITROGEN 60 mg/dL (7-20); CARBON DIOXIDE 23 mmol/L (22-30); CHLORIDE 107 mmol/L (98-107); GLUCOSE 118 mg/dL (75-110); PHOSPHORUS 4.3 mg/dL (2.5-4.5)
[2019-10-14 07:07] LABS: PLATELET COUNT 87 10^3/uL (150-450)
[2019-10-14] MEDS: BUDESONIDE NEB 0.5 MG/2 ML AMPUL NEB SCH ×2 (07:53→20:18)
[2019-10-14] MEDS: INSULIN REG, HUMAN 100 UNIT/ML 3 ML VIAL (PYX) SUBCUT SCH ×3 (08:38→18:22)
[2019-10-14] MEDS: DOCUSATE SODIUM 100 MG CAPSULE PO SCH (09:56)
[2019-10-14] MEDS: LORATADINE 10 MG TABLET PO SCH (09:56)
[2019-10-14] MEDS: SITAGLIPTIN PHOSPHATE 25 MG TABLET PO SCH (09:56)
[2019-10-14] MEDS: ISOSORBIDE MONONITRATE 60 MG TAB.ER.24H PO SCH (09:57)
[2019-10-14] MEDS: MONTELUKAST SODIUM 10 MG TABLET PO SCH (09:57)
[2019-10-14] MEDS: LUBIPROSTONE 24 MCG CAPSULE PO SCH ×2 (09:57→17:22)
[2019-10-14] MEDS: CALCITRIOL 0.25 MCG CAPSULE PO SCH (09:57)
[2019-10-14] MEDS: METOLAZONE 5 MG TABLET PO SCH (09:57)
[2019-10-14] MEDS: ASPIRIN 81 MG TABLET, CHEWABLE PO SCH (09:58)
[2019-10-14] MEDS: METOPROLOL SUCCINATE 25 MG TAB.SR.24H PO SCH (09:58)
[2019-10-14] MEDS: LOSARTAN POTASSIUM 25 MG TABLET PO SCH (09:59)
[2019-10-14] MEDS: GUAIFENESIN/D-METHORPHAN (200-20 MG) SYRUP 10 ML PO PRN (13:23)
--- NOTE | 2019-10-14 15:41 | PDOC PROGRESS REPORT ---
Subjective Progress Note for:: 10/14/19 Reason For Visit: Patient seen today. She feels some better than yesterday with adjustments done in the diuretics. She has noted more urination and so to has her . Still short of breath if she tries to exert a lot. No complaints of any chest pains. She is also been put on fluid restriction. Labs and medications were reviewed. Physical Exam Vital Signs: Temp Pulse Resp BP Pulse Ox 98.4 F 77 18 134/57 H 93 10/14/19 11:59 10/14/19 14:19 10/14/19 14:19 10/14/19 11:59 10/14/19 14:19 Intake & Output 10/13/19 10/14/19 10/15/19 06:59 06:59 06:59 Intake Total 1612 1101 377 Output Total 250 950 Balance 1362 151 377 Weight 100.2 kg 102.2 kg General appearance: PRESENT: mild distress Respiratory exam: PRESENT: clear to auscultation cheli, decreased breath sounds. ABSENT: crackles Cardiovascular exam: PRESENT: +S1, +S2 GI/Abdominal exam: PRESENT: distended, normal bowel sounds, soft. ABSENT: firm, organomegaly, tenderness Extremities exam: PRESENT: +1 edema Neurological exam: PRESENT: alert, awake, oriented to person, oriented to place, oriented to time Psychiatric exam: PRESENT: appropriate affect Skin exam: ABSENT: cyanosis, erythema, mottled, rash Results Laboratory Results: 10/14/19 05:53 10/14/19 05:53 10/14/19 10/14/19 05:53 05:53 WBC 5.2 RBC 2.70 L Hgb 8.3 L Hct 25.5 L MCV 95 MCH 30.7 MCHC 32.4 RDW 16.4 H Plt Count 87 L Sodium 137.2 Potassium 5.0 Chloride 107 Carbon Dioxide 23 Anion Gap 7 BUN 60 H Creatinine 2.67 H Est GFR ( Amer) 21 L Glucose 118 H Calcium 8.0 L Phosphorus 4.3 10/06/19 12:23 Troponin I 0.020 NT-Pro-B Natriuret Pep 6270 H Impressions: Chest X-Ray 10/06/19 11:47 IMPRESSION: No acute findings Assessment & Plan - Diagnosis (1) CHF (congestive heart failure) Qualifiers: Heart failure type: unspecified Heart failure chronicity: acute on chronic Qualified Code(s): I50.9 - Heart failure, unspecified Plan: Diastolic. High probability of right heart failure as well. And finally seems to be responding to adjustments done with her diuretic regimen. Monitor closely. Do not see any indications for initiation of renal replacements and I hope that she will respond to conservative management. (2) Acute worsening of stage 4 chronic kidney disease Is this a current diagnosis for this admission?: Yes Plan: Current creatinine 2.6/2.8 and status quo. Nonoliguric. See response to changes done in her medications. No indications for initiation of renal replacement therapy. (3) Anemia of chronic renal failure, stage 4 (severe) Is this a current diagnosis for this admission?: Yes Plan: Erythropoietin. (4) Hyperkalemia Is this a current diagnosis for this admission?: Yes Plan: Mild. Monitor. (5) Diabetes mellitus type 2 in obese Is this a current diagnosis for this admission?: Yes Plan: Advised on diet control. (6) Diastolic heart failure Plan: Currently decompensated. See notes earlier. (7) Hypertension Plan: Well-controlled. Continue current medications. (8) Morbid obesity with BMI of 40.0-44.9, adult Is this a current diagnosis for this admission?: Yes Plan: Status quo.
[2019-10-14] MEDS: HYDROCORTISONE 1% CREAM 28.35 GM TP SCH ×2 (16:00→17:22)
--- NOTE | 2019-10-14 16:17 | PDOC PROGRESS REPORT ---
Subjective Subjective:: Patient feels tired today. States that she did not have much sleep last night. Still endorses only mild shortness of breath. Denies any palpitations or chest pain. Reason For Visit: ACUTE ON CHRONIC KIDNEY FAILURE Physical Exam Vital Signs: Temp Pulse Resp BP Pulse Ox 98.4 F 77 18 134/57 H 93 10/14/19 11:59 10/14/19 14:19 10/14/19 14:19 10/14/19 11:59 10/14/19 14:19 Intake & Output 10/13/19 10/14/19 10/15/19 06:59 06:59 06:59 Intake Total 1612 1101 377 Output Total 250 950 Balance 1362 151 377 Weight 100.2 kg 102.2 kg General appearance: PRESENT: no acute distress, cooperative Neck exam: ABSENT: JVD Respiratory exam: PRESENT: clear to auscultation cheli, symmetrical, unlabored. ABSENT: tachypnea, wheezes Cardiovascular exam: PRESENT: RRR, +S1, +S2. ABSENT: tachycardia GI/Abdominal exam: PRESENT: distended, normal bowel sounds, soft. ABSENT: firm, guarding, rebound, rigid, tenderness Extremities exam: PRESENT: +2 edema Neurological exam: PRESENT: alert, awake, oriented to person, oriented to place, oriented to time Results Laboratory Results: 10/14/19 05:53 10/14/19 05:53 10/14/19 10/14/19 05:53 05:53 WBC 5.2 RBC 2.70 L Hgb 8.3 L Hct 25.5 L MCV 95 MCH 30.7 MCHC 32.4 RDW 16.4 H Plt Count 87 L Sodium 137.2 Potassium 5.0 Chloride 107 Carbon Dioxide 23 Anion Gap 7 BUN 60 H Creatinine 2.67 H Est GFR ( Amer) 21 L Glucose 118 H Calcium 8.0 L Phosphorus 4.3 10/06/19 12:23 Troponin I 0.020 NT-Pro-B Natriuret Pep 6270 H Impressions: Chest X-Ray 10/06/19 11:47 IMPRESSION: No acute findings Assessment and Plan - Diagnosis (1) Fluid overload Is this a current diagnosis for this admission?: Yes Plan: Patient still appears quite fluid overloaded secondary to her CKD stage IV. Continue regimen of Lasix IV 40 mg every 8 hours and metolazone and monitor response. I have placed on 1200 cc fluid restriction (2) Acute worsening of stage 4 chronic kidney disease Is this a current diagnosis for this admission?: Yes Plan: Improving. Nonoliguric. Creatinine now closer to baseline. Sees Dr. Serra as outpatient. Nephrology following as inpatient and states that there is no indication for HD at this time. We will continue with conservative medical therapy at this time. (3) Anemia of chronic renal failure, stage 4 (severe) Is this a current diagnosis for this admission?: Yes Plan: Iron studies showing anemia of chronic disease consistent with anemia from renal failure Received transfusion on admission I have put patient on Epoeitin 3000 units IV 3 times a week for a few doses. (4) COPD exacerbation Is this a current diagnosis for this admission?: Yes Plan: History of COPD not on home oxygen. Continue duo nebs, flutter valve, incentive spirometry, LMA, ICS, LABA. (5) Hyperkalemia Is this a current diagnosis for this admission?: Yes Plan: Likely due to worsened renal function but now resolving. Continue with Lasix IV. Kayexalate was discontinued. Patient's home dose of Veltassa was resumed. Continue telemetry (6) Diabetes mellitus type 2 in obese Is this a current diagnosis for this admission?: Yes Plan: Noted to be hypoglycemic on this admission. Likely due to low p.o. intake and worsening kidney function. Hence her sitagliptin dose was decreased from 100 mg to 25 mg and her insulin Lantus was discontinued. Blood sugars starting to trend back up. I will increase her sitagliptin to 75 mg daily and continue to hold her Lantus. Continue Accu-Cheks before meals at bedtime as well as sliding scale insulin. (7) Morbid obesity with BMI of 45.0-49.9, adult Is this a current diagnosis for this admission?: Yes - Time Time Spent with patient: 15-24 minutes
[2019-10-14] MEDS ORDERED: SITAGLIPTIN PHOSPHATE 50 MG TABLET PO ONE (17:00)
[2019-10-15] MEDS: HEPARIN SOD (PORCINE) 5,000 UNIT/ML 1 ML VIAL SUBCUT SCH ×4 (01:11→22:03)
[2019-10-15] MEDS: INSULIN REG, HUMAN 100 UNIT/ML 3 ML VIAL (PYX) SUBCUT SCH ×5 (01:14→22:04)
[2019-10-15] MEDS: PATIROMER 8.4 GM SUSP PACKET PO SCH ×2 (01:15→22:07)
[2019-10-15] MEDS: DIPHENHYDRAMINE HCL 25 MG CAPSULE PO SCH ×4 (01:16→17:39)
[2019-10-15] MEDS: MELATONIN 5 MG TABLET PO SCH ×2 (01:16→22:07)
[2019-10-15] MEDS: FUROSEMIDE INJ/PF 40 MG/4 ML SDV IV SCH ×2 (01:17→08:29)
[2019-10-15] MEDS: ACETAMINOPHEN 325 MG TABLET PO PRN (01:57)
[2019-10-15 02:00] LABS: ANION GAP 7 (5-19); BLOOD UREA NITROGEN 60 mg/dL (7-20); CALCIUM 8.2 mg/dL (8.4-10.2); CARBON DIOXIDE 25 mmol/L (22-30); CHLORIDE 105 mmol/L (98-107); GLUCOSE 175 mg/dL (75-110); POTASSIUM 4.6 mmol/L (3.6-5.0)
[2019-10-15] MEDS: IPRATROPIUM/ALBUTEROL 0.5-2.5 MG/3 ML AMPUL NEB SCH ×2 (02:01→07:30)
[2019-10-15] MEDS: BUDESONIDE NEB 0.5 MG/2 ML AMPUL NEB SCH ×2 (07:30→19:50)
[2019-10-15 07:42] LABS: ANION GAP 7 (5-19); BLOOD UREA NITROGEN 58 mg/dL (7-20); CALCIUM 8.4 mg/dL (8.4-10.2); CARBON DIOXIDE 24 mmol/L (22-30); CHLORIDE 105 mmol/L (98-107); GLUCOSE 132 mg/dL (75-110); POTASSIUM 4.5 mmol/L (3.6-5.0)
[2019-10-15] MEDS: PANTOPRAZOLE SODIUM 40 MG TABLET.DR PO SCH ×2 (08:30→17:39)
[2019-10-15] MEDS: GABAPENTIN 300 MG CAPSULE PO SCH (08:30)
[2019-10-15] MEDS: ISOSORBIDE MONONITRATE 60 MG TAB.ER.24H PO SCH (09:39)
[2019-10-15] MEDS: LUBIPROSTONE 24 MCG CAPSULE PO SCH ×2 (09:39→17:39)
[2019-10-15] MEDS: METOLAZONE 5 MG TABLET PO SCH ×3 (09:39→22:08)
[2019-10-15] MEDS: ASPIRIN 81 MG TABLET, CHEWABLE PO SCH (09:39)
[2019-10-15] MEDS: MONTELUKAST SODIUM 10 MG TABLET PO SCH (09:39)
[2019-10-15] MEDS: DOCUSATE SODIUM 100 MG CAPSULE PO SCH (09:40)
[2019-10-15] MEDS: METOPROLOL SUCCINATE 25 MG TAB.SR.24H PO SCH (09:40)
[2019-10-15] MEDS: HYDROCORTISONE 1% CREAM 28.35 GM TP SCH ×2 (09:40→17:45)
[2019-10-15] MEDS: LORATADINE 10 MG TABLET PO SCH (09:40)
[2019-10-15] MEDS: EPOETIN ALFA-EPBX 3,000 UNIT/ML VIAL (NON-ESRD) IV SCH (09:41)
[2019-10-15] MEDS ORDERED: SITAGLIPTIN PHOSPHATE 25 MG TABLET PO SCH (10:00)
--- NOTE | 2019-10-15 12:36 | PDOC PROGRESS REPORT ---
Subjective Progress Note for:: 10/15/19 Reason For Visit: Patient seen today. She is status quo. She still feels exertional shortness of breath but none at rest. Notes no chest pains. However she mentions she had shaking chills this morning for a few times and she is also complaining of some pain around her right lower extremity. Denied any history of fever. Labs and medications were reviewed. Output is not great at the moment in spite of initiation of IV diuretics. Physical Exam Vital Signs: Temp Pulse Resp BP Pulse Ox 98.4 F 71 20 132/50 H 99 10/15/19 11:40 10/15/19 11:40 10/15/19 11:40 10/15/19 11:40 10/15/19 11:40 Intake & Output 10/14/19 10/15/19 10/16/19 06:59 06:59 06:59 Intake Total 1101 1113 360 Output Total 146 082 5920 Balance 151 313 -715 Weight 102.2 kg 98.4 kg General appearance: PRESENT: no acute distress Respiratory exam: PRESENT: clear to auscultation cheli, decreased breath sounds. ABSENT: crackles Cardiovascular exam: PRESENT: +S1, +S2 GI/Abdominal exam: PRESENT: distended, normal bowel sounds, soft. ABSENT: firm, organomegaly, tenderness Extremities exam: PRESENT: +2 edema - Is got early cellulitis of her right lower extremity. Neurological exam: PRESENT: alert, awake, oriented to person, oriented to place Psychiatric exam: PRESENT: appropriate affect Skin exam: PRESENT: erythema - Right lower extremity with some increased warmth.. ABSENT: cyanosis, mottled Results Laboratory Results: 10/14/19 05:53 10/15/19 07:03 10/15/19 10/15/19 01:35 07:03 Sodium 137.1 136.3 L Potassium 4.6 4.5 Chloride 105 105 Carbon Dioxide 25 24 Anion Gap 7 7 BUN 60 H 58 H Creatinine 2.67 H 2.58 H Est GFR ( Amer) 21 L 22 L Glucose 175 H 132 H Calcium 8.2 L 8.4 Magnesium 1.8 10/06/19 12:23 Troponin I 0.020 NT-Pro-B Natriuret Pep 6270 H Impressions: Chest X-Ray 10/06/19 11:47 IMPRESSION: No acute findings Assessment & Plan - Diagnosis (1) CHF (congestive heart failure) Qualifiers: Heart failure type: unspecified Heart failure chronicity: acute on chronic Qualified Code(s): I50.9 - Heart failure, unspecified Plan: Diastolic. High probability of right heart failure as well. She had shown some good response to initial initiation of IV diuretics which seems to have plateaued. We will go ahead further adjust diuretics now and see the response. Monitor closely. Do not see any indications for initiation of renal replacements and I hope that she will respond to conservative management. (2) Acute worsening of stage 4 chronic kidney disease Is this a current diagnosis for this admission?: Yes Plan: Current creatinine 2.5/2.6/2.8 and status quo. Nonoliguric. See response to changes done in her medications. No indications for initiation of renal replacement therapy. (3) Anemia of chronic renal failure, stage 4 (severe) Is this a current diagnosis for this admission?: Yes Plan: Erythropoietin. (4) Hyperkalemia Is this a current diagnosis for this admission?: Yes Plan: Mild. Monitor. (5) Diabetes mellitus type 2 in obese Is this a current diagnosis for this admission?: Yes Plan: Advised on diet control. (6) Diastolic heart failure Plan: Currently decompensated. See notes earlier. (7) Hypertension Plan: Well-controlled to low. I am going to discontinue her losartan for the moment. (8) Morbid obesity with BMI of 40.0-44.9, adult Is this a current diagnosis for this admission?: Yes Plan: Status quo. (9) Cellulitis Plan: Right lower extremity. Will order for cultures. Discussed with hospitalist to initiate IV antibiotics before she decompensates into septic shock.
--- NOTE | 2019-10-15 12:46 | PDOC PROGRESS REPORT ---
Subjective Progress Note for:: 10/15/19 Subjective:: Spoke with patient and family at bedside for concern about right lower extremity swelling today. Patient denies any fever. Denies any nausea or vomiting. He still feels very fatigued and did not sleep much yesterday. States that she was up urinating for most of the time. Patient denies any chest pain. Reason For Visit: ACUTE ON CHRONIC KIDNEY FAILURE Physical Exam Vital Signs: Temp Pulse Resp BP Pulse Ox 98.4 F 71 20 132/50 H 99 10/15/19 11:40 10/15/19 11:40 10/15/19 11:40 10/15/19 11:40 10/15/19 11:40 Intake & Output 10/14/19 10/15/19 10/16/19 06:59 06:59 06:59 Intake Total 1101 1113 360 Output Total 730 883 1022 Balance 151 313 -715 Weight 102.2 kg 98.4 kg General appearance: PRESENT: no acute distress, cooperative, other - Appears fatigued Neck exam: ABSENT: JVD Respiratory exam: PRESENT: clear to auscultation cheli, symmetrical, unlabored. ABSENT: rhonchi, tachypnea, wheezes Cardiovascular exam: PRESENT: RRR, +S1, +S2. ABSENT: tachycardia GI/Abdominal exam: PRESENT: distended, normal bowel sounds, soft. ABSENT: firm, guarding, rebound, rigid, tenderness Extremities exam: PRESENT: pedal edema, other - Right lower extremity swelling and erythema Neurological exam: PRESENT: alert, awake, oriented to person, oriented to place Results Laboratory Results: 10/14/19 05:53 10/15/19 07:03 10/15/19 10/15/19 01:35 07:03 Sodium 137.1 136.3 L Potassium 4.6 4.5 Chloride 105 105 Carbon Dioxide 25 24 Anion Gap 7 7 BUN 60 H 58 H Creatinine 2.67 H 2.58 H Est GFR ( Amer) 21 L 22 L Glucose 175 H 132 H Calcium 8.2 L 8.4 Magnesium 1.8 10/06/19 12:23 Troponin I 0.020 NT-Pro-B Natriuret Pep 6270 H Impressions: Chest X-Ray 10/06/19 11:47 IMPRESSION: No acute findings Assessment and Plan - Diagnosis (1) Fluid overload Is this a current diagnosis for this admission?: Yes Plan: Patient still appears quite fluid overloaded secondary to her CKD stage IV. Nephrology adjusted Lasix IV dose to 80 mg every 8 hours and continue metolazone and monitor response. 1200 cc fluid restriction I have placed the Rivera catheter as I am concerned for inaccuracy of I and Os and to help patient get some sleep as she has been getting up to use the bathroom frequently at nighttime which has significantly deprived her of sleep for the past 2 nights. (2) Acute worsening of stage 4 chronic kidney disease Is this a current diagnosis for this admission?: Yes Plan: Improving. Nonoliguric. Creatinine now closer to baseline. Sees Dr. Serra as outpatient. Nephrology following as inpatient and states that there is no indication for HD at this time. Appreciate nephrology recs to help guide conservative medical therapy at this time. (3) Anemia of chronic renal failure, stage 4 (severe) Is this a current diagnosis for this admission?: Yes Plan: Iron studies showing anemia of chronic disease consistent with anemia from renal failure Received transfusion on admission Placed on Epoeitin 3000 units IV 3 times a week for a few doses. (4) Localized swelling of right lower extremity Is this a current diagnosis for this admission?: Yes Plan: Check ultrasound to rule out DVT Have started patient on Ancef for nonpurulent cellulitis (5) Diabetes mellitus type 2 in obese Is this a current diagnosis for this admission?: Yes Plan: Noted to be hypoglycemic on this admission. Likely due to low p.o. intake and worsening kidney function. Hence her sitagliptin dose was decreased from 100 mg to 25 mg and her insulin Lantus was discontinued. Blood sugars starting to trend back up. So I will increased her sitagliptin to 75 mg daily and continue to hold her Lantus. Blood sugars are better controlled today. Continue Accu-Cheks before meals at bedtime as well as sliding scale insulin. (6) Morbid obesity with BMI of 45.0-49.9, adult Is this a current diagnosis for this admission?: Yes (7) COPD exacerbation Is this a current diagnosis for this admission?: Yes Plan: Acute exacerbation has resolved Continue nebs as needed, LMA, ICS. (8) Hyperkalemia Is this a current diagnosis for this admission?: Yes Plan: Likely due to worsened renal function but now resolved. Continue with Lasix IV. Kayexalate was discontinued. Patient's home dose of Veltassa was resumed. - Time Time Spent with patient: 15-24 minutes
[2019-10-15] MEDS: FUROSEMIDE INJ/PF 100 MG/10 ML SDV IV SCH ×2 (14:33→22:06)
[2019-10-15] MEDS: POLYETHYLENE GLYCOL 3350 POWDER 17 GM/1 PACKET PO SCH (14:34)
[2019-10-15] MEDS: CEFAZOLIN SODIUM 1 GM in DEXTROSE 5%-WATER 50 ML IV SCH (17:39)
[2019-10-15] MEDS ORDERED: CEFAZOLIN 1 GM/D5W RTU 1 GM/50 ML RTUPB IV SCH (18:00)
[2019-10-15] MEDS: OXYCODONE-ACETAMINOPHEN 5-325 MG TABLET PO PRN (22:12)
[2019-10-16] MEDS: DIPHENHYDRAMINE HCL 25 MG CAPSULE PO SCH ×5 (00:13→23:04)
[2019-10-16] MEDS: CEFAZOLIN SODIUM 1 GM in DEXTROSE 5%-WATER 50 ML IV SCH ×2 (05:42→17:14)
[2019-10-16] MEDS: GABAPENTIN 300 MG CAPSULE PO SCH (05:42)
[2019-10-16] MEDS: PANTOPRAZOLE SODIUM 40 MG TABLET.DR PO SCH ×2 (05:43→17:14)
[2019-10-16] MEDS: METOLAZONE 5 MG TABLET PO SCH ×3 (05:43→23:04)
[2019-10-16] MEDS: FUROSEMIDE INJ/PF 100 MG/10 ML SDV IV SCH ×2 (05:44→13:24)
[2019-10-16] MEDS: HEPARIN SOD (PORCINE) 5,000 UNIT/ML 1 ML VIAL SUBCUT SCH ×3 (05:44→22:44)
[2019-10-16 05:55] LABS: ABSOLUTE EOSINOPHILS # (AUTO) 0.2 10^3/uL (0.0-0.6); ABSOLUTE LYMPHOCYTES (AUTO) 0.7 10^3/uL (0.5-4.7); ABSOLUTE MONOCYTES (AUTO) 0.4 10^3/uL (0.1-1.4); BASOPHILS % (AUTO) 0.7 % (0-2); EOSINOPHILS % (AUTO) 5.7 % (0-6); HEMATOCRIT 25.3 % (36.0-47.0); HEMOGLOBIN 8.5 g/dL (12.0-15.5); LYMPHOCYTES % (AUTO) 15.4 % (13-45); MEAN CORPUSCULAR HEMOGLOBIN 30.9 pg (27.0-33.4); MEAN CORPUSCULAR HGB CONC 33.5 g/dL (32.0-36.0); MEAN CORPUSCULAR VOLUME 92 fl (80-97); MONOCYTES % (AUTO) 8.9 % (3-13); PLATELET COUNT 107 10^3/uL (150-450); RED BLOOD COUNT 2.75 10^6/uL (3.72-5.28); RED CELL DISTRIBUTION WIDTH 15.7 % (11.5-14.0); SEGMENTED NEUTROPHILS % (AUTO) 69.3 % (42-78); TOTAL CELLS COUNTED % (AUTO) 100 %; WHITE BLOOD COUNT 4.3 10^3/uL (4.0-10.5)
[2019-10-16 06:10] LABS: ANION GAP 6 (5-19); BLOOD UREA NITROGEN 57 mg/dL (7-20); CALCIUM 8.5 mg/dL (8.4-10.2); CARBON DIOXIDE 27 mmol/L (22-30); CHLORIDE 102 mmol/L (98-107); GLUCOSE 140 mg/dL (75-110); POTASSIUM 4.4 mmol/L (3.6-5.0)
[2019-10-16] MEDS: BUDESONIDE NEB 0.5 MG/2 ML AMPUL NEB SCH ×2 (07:30→19:47)
[2019-10-16] MEDS: INSULIN REG, HUMAN 100 UNIT/ML 3 ML VIAL (PYX) SUBCUT SCH ×4 (09:34→23:05)
[2019-10-16] MEDS: LUBIPROSTONE 24 MCG CAPSULE PO SCH ×2 (09:35→17:14)
[2019-10-16] MEDS: ISOSORBIDE MONONITRATE 60 MG TAB.ER.24H PO SCH (09:35)
[2019-10-16] MEDS: METOPROLOL SUCCINATE 25 MG TAB.SR.24H PO SCH (09:35)
[2019-10-16] MEDS: POLYETHYLENE GLYCOL 3350 POWDER 17 GM/1 PACKET PO SCH (09:35)
[2019-10-16] MEDS: HYDROCORTISONE 1% CREAM 28.35 GM TP SCH ×2 (09:36→17:30)
[2019-10-16] MEDS: DOCUSATE SODIUM 100 MG CAPSULE PO SCH (09:36)
[2019-10-16] MEDS: ASPIRIN 81 MG TABLET, CHEWABLE PO SCH (09:36)
[2019-10-16] MEDS: LORATADINE 10 MG TABLET PO SCH (09:36)
[2019-10-16] MEDS: CALCITRIOL 0.25 MCG CAPSULE PO SCH (09:36)
[2019-10-16] MEDS: MONTELUKAST SODIUM 10 MG TABLET PO SCH (09:36)
[2019-10-16] MEDS: SITAGLIPTIN PHOSPHATE 25 MG TABLET PO SCH (09:37)
[2019-10-16] MEDS: POLYVINYL ALCOHOL 1.4% OPH SOLN 15 ML OU PRN (09:37)
[2019-10-16] MEDS ORDERED: SITAGLIPTIN PHOSPHATE 25 MG TABLET PO SCH (10:00)
--- NOTE | 2019-10-16 13:31 | PDOC PROGRESS REPORT ---
Subjective Progress Note for:: 10/16/19 Reason For Visit: Patient was seen today. She generally feeling better than yesterday. She has had good urine output. She still has pain of her right lower extremity from early cellulitis for which she has been begun on IV antibiotics. No more complaints of any chills or rigors. Appetite is good. She has made good amounts of urine of 4+ liters. Labs and medications were reviewed which show stable creatinine. Physical Exam Vital Signs: Temp Pulse Resp BP Pulse Ox 97.7 F 65 17 114/38 L 98 10/16/19 07:45 10/16/19 07:45 10/16/19 07:45 10/16/19 07:45 10/16/19 07:45 Intake & Output 10/15/19 10/16/19 10/17/19 06:59 06:59 06:59 Intake Total 1113 2653 Output Total 800 4450 Balance 313 -1797 Weight 98.4 kg 100.1 kg General appearance: PRESENT: no acute distress Respiratory exam: PRESENT: clear to auscultation cheli, decreased breath sounds. ABSENT: crackles Cardiovascular exam: PRESENT: +S1, +S2 GI/Abdominal exam: PRESENT: distended, normal bowel sounds, soft. ABSENT: firm, organomegaly, tenderness Extremities exam: PRESENT: +2 edema Neurological exam: PRESENT: alert, awake, oriented to person, oriented to place Psychiatric exam: PRESENT: appropriate affect Skin exam: PRESENT: erythema - Mild of right lower extremity. ABSENT: cyanosis, mottled, rash Results Laboratory Results: 10/16/19 05:16 10/16/19 05:16 10/16/19 10/16/19 05:16 05:16 WBC 4.3 RBC 2.75 L Hgb 8.5 L Hct 25.3 L MCV 92 MCH 30.9 MCHC 33.5 RDW 15.7 H Plt Count 107 L Seg Neutrophils % 69.3 Sodium 134.6 L Potassium 4.4 Chloride 102 Carbon Dioxide 27 Anion Gap 6 BUN 57 H Creatinine 2.64 H Est GFR ( Amer) 22 L Glucose 140 H Calcium 8.5 10/06/19 12:23 Troponin I 0.020 NT-Pro-B Natriuret Pep 6270 H Impressions: Chest X-Ray 10/06/19 11:47 IMPRESSION: No acute findings Assessment & Plan - Diagnosis (1) CHF (congestive heart failure) Qualifiers: Heart failure type: unspecified Heart failure chronicity: acute on chronic Qualified Code(s): I50.9 - Heart failure, unspecified Plan: Diastolic. High probability of right heart failure as well. She has shown some good response to IV diuretics. Monitor closely. Do not see any indications for initiation of renal replacements and I hope that she will respond to conservative management.She will need to be down titrated to her diuretics in a day or 2 and needs to be watched carefully. I am off for the weekend and Dr. Serra will be on board as of Saturday. (2) Acute worsening of stage 4 chronic kidney disease Is this a current diagnosis for this admission?: Yes Plan: Current creatinine 2.6/2.5/2.6/2.8 and status quo. Nonoliguric. See response to changes done in her medications. No indications for initiation of renal replacement therapy. (3) Anemia of chronic renal failure, stage 4 (severe) Is this a current diagnosis for this admission?: Yes Plan: Erythropoietin. (4) Hyperkalemia Is this a current diagnosis for this admission?: Yes Plan: Resolved.We will stop her Veltassa. (5) Diabetes mellitus type 2 in obese Is this a current diagnosis for this admission?: Yes Plan: Advised on diet control. (6) Diastolic heart failure Plan: Currently decompensated. See notes earlier. (7) Hypertension Plan: Well-controlled. (8) Morbid obesity with BMI of 40.0-44.9, adult Is this a current diagnosis for this admission?: Yes Plan: Status quo. (9) Cellulitis Plan: Right lower extremity. Currently on antibiotics and looks like we have caught it early enough.
[2019-10-16] MEDS: OXYCODONE-ACETAMINOPHEN 5-325 MG TABLET PO PRN ×2 (17:13→23:00)
--- NOTE | 2019-10-16 18:37 | PDOC PROGRESS REPORT ---
Subjective Subjective:: Patient feels well today. Had some diarrhea last night but otherwise feels well.. Reason For Visit: ACUTE ON CHRONIC KIDNEY FAILURE Physical Exam Vital Signs: Temp Pulse Resp BP Pulse Ox 97.7 F 66 18 133/44 H 98 10/16/19 15:08 10/16/19 15:08 10/16/19 15:08 10/16/19 15:08 10/16/19 15:08 Intake & Output 10/15/19 10/16/19 10/17/19 06:59 06:59 06:59 Intake Total 1113 2703 Output Total 800 4450 Balance 313 -1747 Weight 98.4 kg 100.1 kg General appearance: PRESENT: no acute distress, cooperative Neck exam: ABSENT: JVD Respiratory exam: PRESENT: symmetrical, unlabored. ABSENT: tachypnea, wheezes Cardiovascular exam: PRESENT: RRR, +S1, +S2. ABSENT: tachycardia GI/Abdominal exam: PRESENT: normal bowel sounds, soft. ABSENT: rebound, rigid, tenderness Extremities exam: PRESENT: pedal edema, +2 edema Neurological exam: PRESENT: alert, awake, oriented to person, oriented to place, oriented to time, oriented to situation Results Laboratory Results: 10/16/19 05:16 10/16/19 05:16 10/16/19 10/16/19 05:16 05:16 WBC 4.3 RBC 2.75 L Hgb 8.5 L Hct 25.3 L MCV 92 MCH 30.9 MCHC 33.5 RDW 15.7 H Plt Count 107 L Seg Neutrophils % 69.3 Sodium 134.6 L Potassium 4.4 Chloride 102 Carbon Dioxide 27 Anion Gap 6 BUN 57 H Creatinine 2.64 H Est GFR ( Amer) 22 L Glucose 140 H Calcium 8.5 10/06/19 12:23 Troponin I 0.020 NT-Pro-B Natriuret Pep 6270 H Impressions: Chest X-Ray 10/06/19 11:47 IMPRESSION: No acute findings Assessment and Plan - Diagnosis (1) Fluid overload Is this a current diagnosis for this admission?: Yes Plan: Patient still appears quite fluid overloaded secondary to her CKD stage IV. Responded nicely to Lasix IV 80 mg daily 8 hours. Will decrease to daily tomorrow and recheck BNP. 1200 cc fluid restriction Rivera catheter as I am for accuracy of I and Os and to help patient get some sleep as she has been getting up to urinate frequently at nighttime which has significantly deprived her of sleep. (2) Acute worsening of stage 4 chronic kidney disease Is this a current diagnosis for this admission?: Yes Plan: Improving. Nonoliguric. Creatinine now closer to baseline. Sees Dr. Serra as outpatient. Nephrology following as inpatient and states that there is no indication for HD at this time. Appreciate nephrology recs to help guide conservative medical therapy at this time. (3) Anemia of chronic renal failure, stage 4 (severe) Is this a current diagnosis for this admission?: Yes Plan: Iron studies showing anemia of chronic disease consistent with anemia from renal failure Received transfusion on admission Placed on Epoeitin 3000 units IV 3 times a week for a few doses. (4) Localized swelling of right lower extremity Is this a current diagnosis for this admission?: Yes Plan: Check ultrasound to rule out DVT Ancef for nonpurulent cellulitis (5) Diabetes mellitus type 2 in obese Is this a current diagnosis for this admission?: Yes Plan: Noted to be hypoglycemic on this admission. Likely due to low p.o. intake and worsening kidney function. Hence her sitagliptin dose was decreased from 100 mg to 25 mg and her insulin Lantus was discontinued. Continue Accu-Cheks before meals at bedtime as well as sliding scale insulin. (6) Morbid obesity with BMI of 45.0-49.9, adult Is this a current diagnosis for this admission?: Yes (7) COPD exacerbation Is this a current diagnosis for this admission?: Yes Plan: Acute exacerbation has resolved Continue nebs as needed, LMA, ICS. (8) Hyperkalemia Is this a current diagnosis for this admission?: Yes Plan: Likely due to worsened renal function but now resolved. Continue with Lasix IV. Nephrology recommending discontinuing Veltassa now hyperkalemia is resolved - Time Time Spent with patient: 15-24 minutes
[2019-10-16] MEDS: MELATONIN 5 MG TABLET PO SCH (23:04)
--- NOTE | 2019-10-17 00:27 | RADIOLOGY REPORT (SQ) ---
US LOWER EXTREMITY VEINS EXAM DATE: 10/16/2019 12:00 AM [facility] HISTORY: Leg pain and swelling. COMPARISON: None. TECHNIQUE: Grayscale, color Doppler, and spectral Doppler images of the right lower extremity were performed. FINDINGS: The common femoral, superficial femoral and popliteal veins are patent and compressible. Normal augmentation and color Doppler blood flow in the aforementioned veins. The visualized calf veins are also patent. IMPRESSION: No evidence of deep venous thrombosis in the right lower extremity.
[2019-10-17 06:27] LABS: ANION GAP 7 (5-19); BLOOD UREA NITROGEN 55 mg/dL (7-20); CALCIUM 8.5 mg/dL (8.4-10.2); CARBON DIOXIDE 28 mmol/L (22-30); CHLORIDE 99 mmol/L (98-107); GLUCOSE 139 mg/dL (75-110); POTASSIUM 4.1 mmol/L (3.6-5.0)
[2019-10-17] MEDS: GABAPENTIN 300 MG CAPSULE PO SCH (06:47)
[2019-10-17] MEDS: METOLAZONE 5 MG TABLET PO SCH ×3 (06:47→22:26)
[2019-10-17] MEDS: PANTOPRAZOLE SODIUM 40 MG TABLET.DR PO SCH ×2 (06:47→17:39)
[2019-10-17] MEDS: DIPHENHYDRAMINE HCL 25 MG CAPSULE PO SCH ×4 (06:47→23:15)
[2019-10-17] MEDS: CEFAZOLIN SODIUM 1 GM in DEXTROSE 5%-WATER 50 ML IV SCH ×2 (06:49→17:39)
[2019-10-17] MEDS: HEPARIN SOD (PORCINE) 5,000 UNIT/ML 1 ML VIAL SUBCUT SCH ×3 (06:50→22:26)
[2019-10-17] MEDS: BUDESONIDE NEB 0.5 MG/2 ML AMPUL NEB SCH ×2 (07:59→19:58)
[2019-10-17] MEDS: INSULIN REG, HUMAN 100 UNIT/ML 3 ML VIAL (PYX) SUBCUT SCH ×4 (08:47→22:25)
[2019-10-17] MEDS: ISOSORBIDE MONONITRATE 60 MG TAB.ER.24H PO SCH (11:10)
[2019-10-17] MEDS: DOCUSATE SODIUM 100 MG CAPSULE PO SCH (11:10)
[2019-10-17] MEDS: LUBIPROSTONE 24 MCG CAPSULE PO SCH ×2 (11:10→17:39)
[2019-10-17] MEDS: LORATADINE 10 MG TABLET PO SCH (11:11)
[2019-10-17] MEDS: METOPROLOL SUCCINATE 25 MG TAB.SR.24H PO SCH (11:11)
[2019-10-17] MEDS: MONTELUKAST SODIUM 10 MG TABLET PO SCH (11:11)
[2019-10-17] MEDS: EPOETIN ALFA-EPBX 3,000 UNIT/ML VIAL (NON-ESRD) IV SCH (11:11)
[2019-10-17] MEDS: ASPIRIN 81 MG TABLET, CHEWABLE PO SCH (11:11)
[2019-10-17] MEDS: FUROSEMIDE INJ/PF 100 MG/10 ML SDV IV SCH (11:12)
[2019-10-17] MEDS: POLYVINYL ALCOHOL 1.4% OPH SOLN 15 ML OU PRN ×2 (11:30→17:39)
[2019-10-17] MEDS: SITAGLIPTIN PHOSPHATE 25 MG TABLET PO SCH (11:31)
[2019-10-17] MEDS: ONDANSETRON HCL INJ/PF 4 MG/2 ML SDV IV PRN (12:35)
[2019-10-17] MEDS: HYDROCORTISONE 1% CREAM 28.35 GM TP SCH ×2 (13:11→17:39)
[2019-10-17] MEDS ORDERED: DEXTROSE 40% GEL 15 GM TUBE PO PRN ×2 (13:30)
--- NOTE | 2019-10-17 13:36 | PDOC PROGRESS REPORT ---
Subjective Subjective:: Patient feels well today. She was able to sleep comfortably through the night. Did have an episode of shortness of breath last night which resolved after receiving a breathing treatment. Denies chest pain or lightheadedness. Reason For Visit: ACUTE ON CHRONIC KIDNEY FAILURE Physical Exam Vital Signs: Temp Pulse Resp BP Pulse Ox 98.5 F 69 17 141/46 H 99 10/17/19 07:28 10/17/19 07:28 10/17/19 07:28 10/17/19 07:28 10/17/19 07:28 Intake & Output 10/16/19 10/17/19 10/18/19 06:59 06:59 06:59 Intake Total 2703 770 50 Output Total 4450 2200 Balance -1747 -1430 50 Weight 100.1 kg 95.9 kg General appearance: PRESENT: no acute distress, cooperative Neck exam: ABSENT: JVD Respiratory exam: PRESENT: symmetrical, unlabored. ABSENT: tachypnea, wheezes Cardiovascular exam: PRESENT: RRR, +S1, +S2. ABSENT: tachycardia GI/Abdominal exam: PRESENT: normal bowel sounds, soft. ABSENT: rebound, rigid, tenderness Extremities exam: PRESENT: calf tenderness - With improvement in erythema in the right lower extremity, pedal edema Musculoskeletal exam: PRESENT: ambulatory Neurological exam: PRESENT: alert, awake, oriented to person, oriented to place, oriented to time Results Laboratory Results: 10/16/19 05:16 10/17/19 05:27 10/17/19 05:27 Sodium 133.8 L Potassium 4.1 Chloride 99 Carbon Dioxide 28 Anion Gap 7 BUN 55 H Creatinine 2.62 H Est GFR ( Amer) 22 L Glucose 139 H Calcium 8.5 10/06/19 10/17/19 12:23 05:27 Troponin I 0.020 NT-Pro-B Natriuret Pep 6270 H 4590 H Impressions: Chest X-Ray 10/06/19 11:47 IMPRESSION: No acute findings Venous Doppler Study 10/16/19 00:00 IMPRESSION: No evidence of deep venous thrombosis in the right lower extremity. Assessment and Plan - Diagnosis (1) Fluid overload Qualifiers: Hypervolemia type: other Qualified Code(s): E87.79 - Other fluid overload Is this a current diagnosis for this admission?: Yes Plan: secondary to her CKD stage IV and chronic diastolic heart failure. Responding nicely to Lasix IV with improvement in BNP. Dose reduced today and will monitor output to see if extra dose as needed. 1200 cc fluid restriction Rivera catheter given concern for accuracy of I and Os and to help patient get some sleep as she had been getting up to urinate frequently at nighttime which has significantly deprived her of sleep. (2) Acute worsening of stage 4 chronic kidney disease Is this a current diagnosis for this admission?: Yes Plan: Improving. Nonoliguric. Creatinine now closer to baseline. Sees Dr. Serra as outpatient. Nephrology following as inpatient and states that there is no indication for HD at this time. Appreciate nephrology recs to help guide conservative medical therapy at this time. (3) Cellulitis of right lower extremity Is this a current diagnosis for this admission?: Yes Plan: Ancef day 3 Venous Doppler showed no evidence of DVT (4) Anemia of chronic renal failure, stage 4 (severe) Is this a current diagnosis for this admission?: Yes Plan: Iron studies showing anemia of chronic disease consistent with anemia from renal failure Received transfusion on admission Placed on Epoeitin 3000 units IV 3 times a week for a few doses. (5) Diabetes mellitus type 2 in obese Is this a current diagnosis for this admission?: Yes Plan: Noted to be hypoglycemic on this admission. Likely due to low p.o. intake and worsening kidney function. Hence her sitagliptin dose was decreased from 100 mg to 25 mg as this is the dose her renal function permits. I will restart Lantus at a significantly reduced dose of 8 units daily and monitor blood sugars for response. Continue Accu-Cheks before meals at bedtime as well as sliding scale insulin. (6) Morbid obesity with BMI of 45.0-49.9, adult Is this a current diagnosis for this admission?: Yes (7) COPD exacerbation Is this a current diagnosis for this admission?: Yes Plan: Acute exacerbation has resolved Continue nebs as needed, LMA, ICS. (8) Hyperkalemia Is this a current diagnosis for this admission?: Yes Plan: Likely due to worsened renal function but now resolved. Continue with Lasix IV. Nephrology recommending discontinuing Veltassa now hyperkalemia is resolved (9) Acute on chronic diastolic (congestive) heart failure Is this a current diagnosis for this admission?: Yes Plan: BP control, Lasix - Time Time Spent with patient: 15-24 minutes
[2019-10-17] MEDS: INSULIN GLARGINE,HUM.REC.ANLOG 1,000 UNIT/10 ML VIAL SUBCUT SCH (14:28)
[2019-10-17] MEDS: OXYCODONE-ACETAMINOPHEN 5-325 MG TABLET PO PRN (19:56)
[2019-10-17] MEDS: MELATONIN 5 MG TABLET PO SCH (22:25)
[2019-10-18] MEDS: CEFAZOLIN SODIUM 1 GM in DEXTROSE 5%-WATER 50 ML IV SCH ×2 (05:39→17:25)
[2019-10-18] MEDS: PANTOPRAZOLE SODIUM 40 MG TABLET.DR PO SCH ×2 (05:40→17:25)
[2019-10-18] MEDS: METOLAZONE 5 MG TABLET PO SCH ×2 (05:40→16:33)
[2019-10-18] MEDS: GABAPENTIN 300 MG CAPSULE PO SCH (05:40)
[2019-10-18] MEDS: DIPHENHYDRAMINE HCL 25 MG CAPSULE PO SCH ×3 (05:40→17:25)
[2019-10-18] MEDS: HEPARIN SOD (PORCINE) 5,000 UNIT/ML 1 ML VIAL SUBCUT SCH ×3 (05:42→22:09)
[2019-10-18] MEDS: BUDESONIDE NEB 0.5 MG/2 ML AMPUL NEB SCH ×2 (08:18→19:59)
[2019-10-18] MEDS: INSULIN REG, HUMAN 100 UNIT/ML 3 ML VIAL (PYX) SUBCUT SCH ×4 (08:42→22:10)
[2019-10-18] MEDS: METOPROLOL SUCCINATE 25 MG TAB.SR.24H PO SCH (09:37)
[2019-10-18] MEDS: LUBIPROSTONE 24 MCG CAPSULE PO SCH ×2 (09:37→17:25)
[2019-10-18] MEDS: MONTELUKAST SODIUM 10 MG TABLET PO SCH (09:37)
[2019-10-18] MEDS: DOCUSATE SODIUM 100 MG CAPSULE PO SCH (09:37)
[2019-10-18] MEDS: ERGOCALCIFEROL (VITAMIN D2) 50000 UNIT (1.25 MG) CAPSULE PO SCH (09:37)
[2019-10-18] MEDS: LORATADINE 10 MG TABLET PO SCH (09:37)
[2019-10-18] MEDS: SITAGLIPTIN PHOSPHATE 25 MG TABLET PO SCH (09:37)
[2019-10-18] MEDS: FUROSEMIDE INJ/PF 100 MG/10 ML SDV IV SCH (09:38)
[2019-10-18] MEDS: ASPIRIN 81 MG TABLET, CHEWABLE PO SCH (09:38)
[2019-10-18] MEDS: ISOSORBIDE MONONITRATE 60 MG TAB.ER.24H PO SCH (09:38)
[2019-10-18 09:40] LABS: ANION GAP 6 (5-19); BLOOD UREA NITROGEN 55 mg/dL (7-20); CALCIUM 8.2 mg/dL (8.4-10.2); CARBON DIOXIDE 30 mmol/L (22-30); CHLORIDE 98 mmol/L (98-107); GLUCOSE 151 mg/dL (75-110); POTASSIUM 4.3 mmol/L (3.6-5.0)
[2019-10-18] MEDS: HYDROCORTISONE 1% CREAM 28.35 GM TP SCH ×2 (09:41→17:26)
[2019-10-18] MEDS: INSULIN GLARGINE,HUM.REC.ANLOG 1,000 UNIT/10 ML VIAL SUBCUT SCH ×2 (09:46→22:14)
[2019-10-18] MEDS: OXYCODONE-ACETAMINOPHEN 5-325 MG TABLET PO PRN ×2 (12:17→20:02)
[2019-10-18] MEDS: ONDANSETRON HCL INJ/PF 4 MG/2 ML SDV IV PRN (12:46)
--- NOTE | 2019-10-18 14:44 | PDOC PROGRESS REPORT ---
Subjective Progress Note for:: 10/18/19 Subjective:: Patient states that she feels well. She was able to get some sleep last night. Denies any shortness of breath currently. Still experiences extremity swelling. Reason For Visit: ACUTE ON CHRONIC KIDNEY FAILURE Physical Exam Vital Signs: Temp Pulse Resp BP Pulse Ox 97.6 F 61 16 120/48 L 98 10/18/19 12:00 10/18/19 12:00 10/18/19 12:00 10/18/19 12:00 10/18/19 12:00 Intake & Output 10/17/19 10/18/19 10/19/19 06:59 06:59 06:59 Intake Total 770 150 240 Output Total 2200 1725 275 Balance -1430 -1575 -35 Weight 95.9 kg 95.6 kg General appearance: PRESENT: no acute distress, cooperative Neck exam: ABSENT: JVD Respiratory exam: PRESENT: clear to auscultation cheli, symmetrical, unlabored. ABSENT: tachypnea, wheezes Cardiovascular exam: PRESENT: RRR, +S1, +S2. ABSENT: tachycardia GI/Abdominal exam: PRESENT: distended, normal bowel sounds, soft. ABSENT: firm, guarding, rebound, rigid, tenderness Gentrourinary exam: PRESENT: indwelling catheter Extremities exam: PRESENT: calf tenderness - Right, pedal edema Neurological exam: PRESENT: alert, awake, oriented to person, oriented to place, oriented to time, oriented to situation Results Laboratory Results: 10/16/19 05:16 10/18/19 08:35 10/18/19 08:35 Sodium 134.3 L Potassium 4.3 Chloride 98 Carbon Dioxide 30 Anion Gap 6 BUN 55 H Creatinine 2.34 H Est GFR ( Amer) 25 L Glucose 151 H Calcium 8.2 L 10/06/19 10/17/19 12:23 05:27 Troponin I 0.020 NT-Pro-B Natriuret Pep 6270 H 4590 H Impressions: Chest X-Ray 10/06/19 11:47 IMPRESSION: No acute findings Venous Doppler Study 10/16/19 00:00 IMPRESSION: No evidence of deep venous thrombosis in the right lower extremity. Assessment and Plan - Diagnosis (1) Fluid overload Qualifiers: Hypervolemia type: other Qualified Code(s): E87.79 - Other fluid overload Is this a current diagnosis for this admission?: Yes Plan: secondary to her CKD stage IV and chronic diastolic heart failure. Responding nicely to Lasix IV with metolazone and weight is now down from 104 to 95 kg. I will give another dose of 80 mg IV Lasix today with metolazone and then de- escalate regimen to 80 mg p.o. daily with metolazone 5 mg daily 30 minutes before Lasix dose from tomorrow. 1200 cc fluid restriction Rivera catheter given concern for accuracy of I and Os and to help patient get some sleep as she had been getting up to urinate frequently at nighttime which had significantly deprived her of sleep. Will remove Rivera tomorrow. (2) Acute worsening of stage 4 chronic kidney disease Is this a current diagnosis for this admission?: Yes Plan: Improving. Nonoliguric. Creatinine now at baseline. Sees Dr. Serra as outpatient. Nephrology following as inpatient and states that there is no indication for HD at this time. Appreciate nephrology recs to help guide conservative medical therapy at this time. (3) Acute on chronic diastolic (congestive) heart failure Is this a current diagnosis for this admission?: Yes Plan: BP control, Lasix (4) Cellulitis of right lower extremity Is this a current diagnosis for this admission?: Yes Plan: Ancef day 4 Venous Doppler showed no evidence of DVT (5) Anemia of chronic renal failure, stage 4 (severe) Is this a current diagnosis for this admission?: Yes Plan: Iron studies showing anemia of chronic disease consistent with anemia from renal failure Received transfusion on admission Placed on Epoeitin 3000 units IV 3 times a week for a few doses. (6) Diabetes mellitus type 2 in obese Is this a current diagnosis for this admission?: Yes Plan: Noted to be hypoglycemic on this admission. Likely due to low p.o. intake and worsening kidney function. Sitagliptin dose renally adjusted from 100 mg to 25 mg. Lantus at a significantly reduced dose of 8 units q12h and monitor blood sugars for response. Continue Accu-Cheks and SSI ACHS. (7) Morbid obesity with BMI of 45.0-49.9, adult Is this a current diagnosis for this admission?: Yes (8) COPD exacerbation Is this a current diagnosis for this admission?: Yes Plan: Acute exacerbation has resolved Continue nebs as needed, LMA, ICS. (9) Hyperkalemia Is this a current diagnosis for this admission?: Yes Plan: Likely due to worsened renal function but now resolved even off veltassa. Continue with Lasix. - Time Time Spent with patient: 15-24 minutes
[2019-10-18] MEDS ORDERED: METOLAZONE 5 MG TABLET PO ONE (15:30)
[2019-10-18] MEDS ORDERED: FUROSEMIDE INJ/PF 40 MG/4 ML SDV IV ONE (16:00)
[2019-10-18] MEDS: MELATONIN 5 MG TABLET PO SCH (22:14)
[2019-10-19] MEDS: DIPHENHYDRAMINE HCL 25 MG CAPSULE PO SCH ×4 (00:01→17:55)
[2019-10-19 05:11] LABS: HEMATOCRIT 26.1 % (36.0-47.0); HEMOGLOBIN 8.9 g/dL (12.0-15.5); MEAN CORPUSCULAR HEMOGLOBIN 31.4 pg (27.0-33.4); MEAN CORPUSCULAR HGB CONC 33.9 g/dL (32.0-36.0); MEAN CORPUSCULAR VOLUME 93 fl (80-97); PLATELET COUNT 140 10^3/uL (150-450); RED BLOOD COUNT 2.82 10^6/uL (3.72-5.28); RED CELL DISTRIBUTION WIDTH 15.6 % (11.5-14.0); WHITE BLOOD COUNT 3.4 10^3/uL (4.0-10.5)
[2019-10-19] MEDS: GABAPENTIN 300 MG CAPSULE PO SCH (05:39)
[2019-10-19] MEDS: PANTOPRAZOLE SODIUM 40 MG TABLET.DR PO SCH ×2 (05:39→17:55)
[2019-10-19] MEDS: CEFAZOLIN SODIUM 1 GM in DEXTROSE 5%-WATER 50 ML IV SCH ×2 (05:40→17:55)
[2019-10-19] MEDS: HEPARIN SOD (PORCINE) 5,000 UNIT/ML 1 ML VIAL SUBCUT SCH ×3 (05:40→21:06)
[2019-10-19 05:42] LABS: ANION GAP 10 (5-19); BLOOD UREA NITROGEN 59 mg/dL (7-20); CARBON DIOXIDE 28 mmol/L (22-30); CHLORIDE 97 mmol/L (98-107); GLUCOSE 158 mg/dL (75-110); POTASSIUM 4.3 mmol/L (3.6-5.0)
[2019-10-19] MEDS: BUDESONIDE NEB 0.5 MG/2 ML AMPUL NEB SCH (08:09)
[2019-10-19] MEDS: INSULIN REG, HUMAN 100 UNIT/ML 3 ML VIAL (PYX) SUBCUT SCH ×4 (08:29→21:11)
[2019-10-19] MEDS ORDERED: BUDESONIDE NEB 0.5 MG/2 ML AMPUL NEB PRN (10:47)
[2019-10-19] MEDS: CALCITRIOL 0.25 MCG CAPSULE PO SCH (11:06)
[2019-10-19] MEDS: ASPIRIN 81 MG TABLET, CHEWABLE PO SCH (11:07)
[2019-10-19] MEDS: METOPROLOL SUCCINATE 25 MG TAB.SR.24H PO SCH (11:07)
[2019-10-19] MEDS: ISOSORBIDE MONONITRATE 60 MG TAB.ER.24H PO SCH (11:07)
[2019-10-19] MEDS: LORATADINE 10 MG TABLET PO SCH (11:07)
[2019-10-19] MEDS: METOLAZONE 5 MG TABLET PO SCH ×2 (11:07→11:58)
[2019-10-19] MEDS: MONTELUKAST SODIUM 10 MG TABLET PO SCH (11:07)
[2019-10-19] MEDS: LUBIPROSTONE 24 MCG CAPSULE PO SCH ×2 (11:07→17:54)
[2019-10-19] MEDS: DOCUSATE SODIUM 100 MG CAPSULE PO SCH (11:07)
[2019-10-19] MEDS: FUROSEMIDE 80 MG TABLET PO SCH (11:08)
[2019-10-19] MEDS: SITAGLIPTIN PHOSPHATE 25 MG TABLET PO SCH (11:08)
[2019-10-19] MEDS: HYDROCORTISONE 1% CREAM 28.35 GM TP SCH ×2 (11:09→17:55)
[2019-10-19] MEDS: POLYVINYL ALCOHOL 1.4% OPH SOLN 15 ML OU PRN (11:09)
[2019-10-19] MEDS: INSULIN GLARGINE,HUM.REC.ANLOG 1,000 UNIT/10 ML VIAL SUBCUT SCH ×2 (11:28→21:12)
[2019-10-19] MEDS: EPOETIN ALFA-EPBX 3,000 UNIT/ML VIAL (NON-ESRD) IV SCH (11:29)
--- NOTE | 2019-10-19 11:37 | PDOC PROGRESS REPORT ---
Subjective Progress Note for:: 10/19/19 Subjective:: Patient is a 74-year-old lady known to me with history of underlying chronic kidney disease stage IV who was admitted last week with fluid overload. She is currently diuresing well and has lost significant amount of weight through diuresis. Prior to admission I actually increase her Bumex to 2 mg twice a day but that did not work. She is currently on Lasix 80 mg IV which was switched to oral daily plus metolazone which seems to be working. She said she is feeling better in terms of her breathing. Her urine output for the past 24 hours was 3175 mL. Patient and at bedside confirmed that her urine output improved with insertion of Rivera catheter. In the past the patient has had episodes of urinary retention. She complains of some cough which is started a couple days ago with some yellowish phlegm. Reason For Visit: ACUTE ON CHRONIC KIDNEY FAILURE Physical Exam Vital Signs: Temp Pulse Resp BP Pulse Ox 97.6 F 76 16 138/49 H 95 10/19/19 08:00 10/19/19 08:09 10/19/19 08:09 10/19/19 08:00 10/19/19 08:09 Intake & Output 10/18/19 10/19/19 10/20/19 06:59 06:59 06:59 Intake Total 150 1212 Output Total 1725 3175 Balance -1575 -1963 Weight 95.6 kg 92.7 kg Exam: General appearance: PRESENT: no acute distress, cooperative, well-developed, well-nourished Head exam: PRESENT: atraumatic, normocephalic Eye exam: PRESENT: conjunctiva pale, PERRLA. ABSENT: scleral icterus Neck exam: ABSENT: JVD Respiratory exam: PRESENT: Diminished breath sounds. Bibasilar crackles ABSENT: crackles, rales, rhonchi, unlabored, wheezes Cardiovascular exam: PRESENT: Regular rate rhythm -+S1, +S2. ABSENT: diastolic murmur, systolic murmur GI/Abdominal exam: PRESENT: normal bowel sounds, soft. ABSENT: guarding, mass, tenderness Extremities exam: ABSENT: Grade 2 bilateral lower extremity pitting edema; her right leg has erythema and warmth Neurological exam: PRESENT: alert, awake, oriented to person, place and time. Skin exam: PRESENT: dry, warm, Cardiovascular exam: PRESENT: +S1, +S2 GI/Abdominal exam: PRESENT: distended, normal bowel sounds, soft. ABSENT: firm, organomegaly, tenderness Results Laboratory Results: 10/19/19 04:02 10/19/19 04:02 10/19/19 10/19/19 04:02 04:02 WBC 3.4 L RBC 2.82 L Hgb 8.9 L Hct 26.1 L MCV 93 MCH 31.4 MCHC 33.9 RDW 15.6 H Plt Count 140 L Sodium 134.9 L Potassium 4.3 Chloride 97 L Carbon Dioxide 28 Anion Gap 10 BUN 59 H Creatinine 2.22 H Est GFR ( Amer) 26 L Glucose 158 H Calcium 8.0 L 10/06/19 10/17/19 10/19/19 12:23 05:27 04:02 Troponin I 0.020 NT-Pro-B Natriuret Pep 6270 H 4590 H 4050 H Impressions: Chest X-Ray 10/06/19 11:47 IMPRESSION: No acute findings Venous Doppler Study 10/16/19 00:00 IMPRESSION: No evidence of deep venous thrombosis in the right lower extremity. Assessment & Plan - Diagnosis (1) Acute kidney injury superimposed on chronic kidney disease Is this a current diagnosis for this admission?: Yes Plan: Patient's urine output is excellent and has been responding well with current diuresis. Her kidney function is actually improved and is currently around baseline kidney function. Patient was taking Bumex as a home medication and is currently at Lasix. May continue current Lasix dose which was just switched to oral with metolazone. Continue to monitor kidney function and electrolytes. She does not need renal replacement therapy at this time. (2) CKD (chronic kidney disease), stage IV Is this a current diagnosis for this admission?: Yes Plan: Currently around baseline kidney function. (3) Fluid overload Qualifiers: Hypervolemia type: other Qualified Code(s): E87.79 - Other fluid overload Is this a current diagnosis for this admission?: Yes Plan: Improving with IV diuresis. (4) Acute on chronic diastolic (congestive) heart failure Is this a current diagnosis for this admission?: Yes (5) Cellulitis of right lower extremity Is this a current diagnosis for this admission?: Yes Plan: On IV antibiotics per hospitalist service. (6) Anemia in chronic kidney disease (CKD) Qualifiers: Chronic kidney disease stage: stage 4 (severe) Qualified Code(s): N18.4 - Chronic kidney disease, stage 4 (severe); D63.1 - Anemia in chronic kidney disease Is this a current diagnosis for this admission?: Yes Plan: On Retacrit every couple of days. (7) Diabetes mellitus type 2 in obese Is this a current diagnosis for this admission?: Yes (8) Hypertension Is this a current diagnosis for this admission?: Yes Plan: Controlled. (9) Morbid obesity with BMI of 40.0-44.9, adult Is this a current diagnosis for this admission?: Yes - Time Time with patient: 15-25 minutes
[2019-10-19] MEDS: ONDANSETRON HCL INJ/PF 4 MG/2 ML SDV IV PRN (13:01)
--- NOTE | 2019-10-19 14:36 | PDOC PROGRESS REPORT ---
Subjective Subjective:: Patient doing well today. Denies any shortness of breath. Reason For Visit: ACUTE ON CHRONIC KIDNEY FAILURE Physical Exam Vital Signs: Temp Pulse Resp BP Pulse Ox 98.4 F 63 20 143/47 H 100 10/19/19 12:00 10/19/19 12:00 10/19/19 12:00 10/19/19 12:00 10/19/19 12:00 Intake & Output 10/18/19 10/19/19 10/20/19 06:59 06:59 06:59 Intake Total 150 1212 Output Total 1725 3175 Balance -1575 -1963 Weight 95.6 kg 92.7 kg General appearance: PRESENT: no acute distress, cooperative Neck exam: ABSENT: JVD Respiratory exam: PRESENT: clear to auscultation cheli, symmetrical, unlabored. ABSENT: crackles, rales, rhonchi, tachypnea, wheezes Cardiovascular exam: PRESENT: +S1, +S2. ABSENT: RRR, tachycardia GI/Abdominal exam: PRESENT: normal bowel sounds, soft. ABSENT: guarding, rebound, rigid, tenderness Extremities exam: PRESENT: +1 edema Neurological exam: PRESENT: alert, awake, oriented to person, oriented to place, oriented to time, oriented to situation Results Laboratory Results: 10/19/19 04:02 10/19/19 04:02 10/19/19 10/19/19 04:02 04:02 WBC 3.4 L RBC 2.82 L Hgb 8.9 L Hct 26.1 L MCV 93 MCH 31.4 MCHC 33.9 RDW 15.6 H Plt Count 140 L Sodium 134.9 L Potassium 4.3 Chloride 97 L Carbon Dioxide 28 Anion Gap 10 BUN 59 H Creatinine 2.22 H Est GFR ( Amer) 26 L Glucose 158 H Calcium 8.0 L 10/06/19 10/17/19 10/19/19 12:23 05:27 04:02 Troponin I 0.020 NT-Pro-B Natriuret Pep 6270 H 4590 H 4050 H Impressions: Chest X-Ray 10/06/19 11:47 IMPRESSION: No acute findings Venous Doppler Study 10/16/19 00:00 IMPRESSION: No evidence of deep venous thrombosis in the right lower extremity. Assessment and Plan - Diagnosis (1) Fluid overload Qualifiers: Hypervolemia type: other Qualified Code(s): E87.79 - Other fluid overload Is this a current diagnosis for this admission?: Yes Plan: secondary to her CKD stage IV and chronic diastolic heart failure. Responded nicely to Lasix IV 80 mg with metolazone and weight is now down from 104 to 92 kg. Now on Lasix 80 mg p.o. daily with metolazone 5 mg daily 30 minutes before Lasix dose. 1200 cc fluid restriction Will remove Rivera tomorrow. (2) Acute worsening of stage 4 chronic kidney disease Is this a current diagnosis for this admission?: Yes Plan: Improving. Nonoliguric. Creatinine now at baseline. Sees Dr. Serra as outpatient. Outpatient follow-up appointment with Dr. Serra (3) Acute on chronic diastolic (congestive) heart failure Is this a current diagnosis for this admission?: Yes Plan: BP control, Lasix (4) Cellulitis of right lower extremity Is this a current diagnosis for this admission?: Yes Plan: Ancef day 5 Venous Doppler showed no evidence of DVT (5) Anemia of chronic renal failure, stage 4 (severe) Is this a current diagnosis for this admission?: Yes Plan: Iron studies showing anemia of chronic disease consistent with anemia from renal failure Received transfusion on admission Placed on Epoeitin 3000 units IV 3 times a week (6) Diabetes mellitus type 2 in obese Is this a current diagnosis for this admission?: Yes Plan: Noted to be hypoglycemic on this admission. Likely due to low p.o. intake and worsening kidney function. Sitagliptin dose renally adjusted from 100 mg to 25 mg. Lantus at a significantly reduced dose of 8 units q12h and monitor blood sugars for response. Continue Accu-Cheks and SSI ACHS. (7) Morbid obesity with BMI of 45.0-49.9, adult Is this a current diagnosis for this admission?: Yes (8) COPD exacerbation Is this a current diagnosis for this admission?: Yes Plan: Acute exacerbation has resolved Continue nebs as needed, LMA, ICS. (9) Hyperkalemia Is this a current diagnosis for this admission?: Yes Plan: Likely due to worsened renal function but now resolved even off veltassa. Continue with Lasix. - Time Time Spent with patient: 15-24 minutes Anticipated discharge: Home Within: within 24 hours
[2019-10-19] MEDS: OXYCODONE-ACETAMINOPHEN 5-325 MG TABLET PO PRN (15:15)
[2019-10-19] MEDS ORDERED: LISINOPRIL 10 MG TABLET ONE (17:53)
[2019-10-19] MEDS: MELATONIN 5 MG TABLET PO SCH (21:11)
[2019-10-20] MEDS: DIPHENHYDRAMINE HCL 25 MG CAPSULE PO SCH ×4 (01:15→17:27)
[2019-10-20 04:17] LABS: HEMATOCRIT 26.7 % (36.0-47.0); HEMOGLOBIN 8.9 g/dL (12.0-15.5); MEAN CORPUSCULAR HEMOGLOBIN 30.7 pg (27.0-33.4); MEAN CORPUSCULAR HGB CONC 33.2 g/dL (32.0-36.0); MEAN CORPUSCULAR VOLUME 93 fl (80-97); PLATELET COUNT 149 10^3/uL (150-450); RED BLOOD COUNT 2.89 10^6/uL (3.72-5.28); RED CELL DISTRIBUTION WIDTH 15.3 % (11.5-14.0); WHITE BLOOD COUNT 3.3 10^3/uL (4.0-10.5)
[2019-10-20 04:48] LABS: ANION GAP 6 (5-19); BLOOD UREA NITROGEN 55 mg/dL (7-20); CALCIUM 7.9 mg/dL (8.4-10.2); CARBON DIOXIDE 31 mmol/L (22-30); CHLORIDE 98 mmol/L (98-107); GLUCOSE 135 mg/dL (75-110); POTASSIUM 4.4 mmol/L (3.6-5.0)
[2019-10-20] MEDS: CEFAZOLIN SODIUM 1 GM in DEXTROSE 5%-WATER 50 ML IV SCH ×2 (05:27→17:24)
[2019-10-20] MEDS: PANTOPRAZOLE SODIUM 40 MG TABLET.DR PO SCH ×2 (05:27→17:26)
[2019-10-20] MEDS: GABAPENTIN 300 MG CAPSULE PO SCH (05:27)
[2019-10-20] MEDS: HEPARIN SOD (PORCINE) 5,000 UNIT/ML 1 ML VIAL SUBCUT SCH ×3 (06:48→21:25)
[2019-10-20] MEDS: INSULIN REG, HUMAN 100 UNIT/ML 3 ML VIAL (PYX) SUBCUT SCH ×4 (08:45→21:23)
[2019-10-20] MEDS: SITAGLIPTIN PHOSPHATE 25 MG TABLET PO SCH (09:44)
[2019-10-20] MEDS: FUROSEMIDE 80 MG TABLET PO SCH (09:44)
[2019-10-20] MEDS: POLYVINYL ALCOHOL 1.4% OPH SOLN 15 ML OU PRN (09:44)
[2019-10-20] MEDS: LUBIPROSTONE 24 MCG CAPSULE PO SCH ×2 (09:45→17:27)
[2019-10-20] MEDS: METOLAZONE 5 MG TABLET PO SCH (09:45)
[2019-10-20] MEDS: METOPROLOL SUCCINATE 25 MG TAB.SR.24H PO SCH (09:45)
[2019-10-20] MEDS: ISOSORBIDE MONONITRATE 60 MG TAB.ER.24H PO SCH (09:45)
[2019-10-20] MEDS: LORATADINE 10 MG TABLET PO SCH (09:45)
[2019-10-20] MEDS: ASPIRIN 81 MG TABLET, CHEWABLE PO SCH (09:45)
[2019-10-20] MEDS: INSULIN GLARGINE,HUM.REC.ANLOG 1,000 UNIT/10 ML VIAL SUBCUT SCH ×2 (09:46→21:23)
[2019-10-20] MEDS: DOCUSATE SODIUM 100 MG CAPSULE PO SCH (09:46)
[2019-10-20] MEDS: MONTELUKAST SODIUM 10 MG TABLET PO SCH (09:46)
[2019-10-20] MEDS: HYDROCORTISONE 1% CREAM 28.35 GM TP SCH ×2 (09:46→17:33)
--- NOTE | 2019-10-20 11:39 | PDOC PROGRESS REPORT ---
Subjective Progress Note for:: 10/20/19 Subjective:: Lupe is doing well , breathing better without any new complains. Urine output for the past 24 hours was 1900 ml on oral Lasix and Metolazone. Reason For Visit: ACUTE ON CHRONIC KIDNEY FAILURE Physical Exam Vital Signs: Temp Pulse Resp BP Pulse Ox 98.6 F 62 16 121/38 L 96 10/20/19 08:16 10/20/19 08:16 10/20/19 08:16 10/20/19 08:16 10/20/19 08:16 Intake & Output 10/19/19 10/20/19 10/21/19 06:59 06:59 06:59 Intake Total 1212 700 Output Total 3175 1900 Balance -1963 -1200 Weight 92.7 kg 94 kg Exam: General appearance: PRESENT: no acute distress, cooperative, well-developed, well-nourished Head exam: PRESENT: atraumatic, normocephalic Eye exam: PRESENT: conjunctiva pale, PERRLA. ABSENT: scleral icterus Neck exam: ABSENT: JVD Respiratory exam: PRESENT: Diminished breath sounds. Bibasilar crackles ABSENT: crackles, rales, rhonchi, unlabored, wheezes Cardiovascular exam: PRESENT: Regular rate rhythm -+S1, +S2. Grade 2/6 systolic murmur ABSENT: diastolic murmur GI/Abdominal exam: PRESENT: normal bowel sounds, soft. ABSENT: guarding, mass, tenderness Extremities exam: Grade 1 bilateral lower extremity pitting edema Neurological exam: PRESENT: alert, awake, oriented to person, place and time. Skin exam: PRESENT: dry, warm, right lower leg still with erythema and warmth. Cardiovascular exam: PRESENT: +S1, +S2 GI/Abdominal exam: PRESENT: distended, normal bowel sounds, soft. ABSENT: firm, organomegaly, tenderness Results Laboratory Results: 10/20/19 03:34 10/20/19 03:34 10/20/19 10/20/19 03:34 03:34 WBC 3.3 L RBC 2.89 L Hgb 8.9 L Hct 26.7 L MCV 93 MCH 30.7 MCHC 33.2 RDW 15.3 H Plt Count 149 L Sodium 135.4 L Potassium 4.4 Chloride 98 Carbon Dioxide 31 H Anion Gap 6 BUN 55 H Creatinine 2.03 H Est GFR ( Amer) 29 L Glucose 135 H Calcium 7.9 L 10/06/19 10/17/19 10/19/19 12:23 05:27 04:02 Troponin I 0.020 NT-Pro-B Natriuret Pep 6270 H 4590 H 4050 H Impressions: Chest X-Ray 10/06/19 11:47 IMPRESSION: No acute findings Venous Doppler Study 10/16/19 00:00 IMPRESSION: No evidence of deep venous thrombosis in the right lower extremity. Assessment & Plan - Diagnosis (1) Acute kidney injury superimposed on chronic kidney disease Is this a current diagnosis for this admission?: Yes Plan: Patient's urine output is excellent and has been responding well with current diuresis. Her kidney function is actually improved and is currently around baseline kidney function. I will change her Lasix to Bumex 2 mg twice daily which is actually her home medications. Continue metolazone. Continue to monitor kidney function and electrolytes. She does not need renal replacement therapy at this time. Patient does have history of urinary retention so after removing Rivera catheter I will order bladder scan every 6 hours to make sure that she is emptying her bladder. (2) CKD (chronic kidney disease), stage IV Is this a current diagnosis for this admission?: Yes Plan: Currently around baseline kidney function. (3) Fluid overload Qualifiers: Hypervolemia type: other Qualified Code(s): E87.79 - Other fluid overload Is this a current diagnosis for this admission?: Yes Plan: Improving with diuretics. (4) Acute on chronic diastolic (congestive) heart failure Is this a current diagnosis for this admission?: Yes (5) Cellulitis of right lower extremity Is this a current diagnosis for this admission?: Yes Plan: On IV antibiotics per hospitalist service. (6) Anemia in chronic kidney disease (CKD) Qualifiers: Chronic kidney disease stage: stage 4 (severe) Qualified Code(s): N18.4 - Chronic kidney disease, stage 4 (severe); D63.1 - Anemia in chronic kidney disease Is this a current diagnosis for this admission?: Yes Plan: On Retacrit every couple of days. Increase Retacrit to 5000 units every 2 days IV. Her iron saturation is only 12% and ferritin 356. I will give her a dose of Injectafer 750 mg IV x1 today. (7) Diabetes mellitus type 2 in obese Is this a current diagnosis for this admission?: Yes (8) Hypertension Is this a current diagnosis for this admission?: Yes Plan: Controlled. (9) Morbid obesity with BMI of 40.0-44.9, adult Is this a current diagnosis for this admission?: Yes - Notes Notes: Discussed with Dr. Valera. If patient continues to do well for the next 24 hours and she is emptying her bladder without a Rivera catheter with adequate urine output as well as continued clinical improvement, patient may be able to be discharged home in the next 24 to 48 hours. - Time Time with patient: 15-25 minutes
[2019-10-20] MEDS: ONDANSETRON HCL INJ/PF 4 MG/2 ML SDV IV PRN (12:02)
[2019-10-20] MEDS ORDERED: FERRIC CARBOXYMALTOSE 750 MG in NORMAL SALINE 100 ML IV ONE (12:30)
[2019-10-20] MEDS ORDERED: EPOETIN ALFA-EPBX 3,000 UNIT/ML VIAL (NON-ESRD) IV SCH (12:30)
[2019-10-20] MEDS: EPOETIN ALFA-EPBX 5,000 UNITS (ESRD) in SYRINGE IV SCH ×3 (12:56)
--- NOTE | 2019-10-20 17:01 | PDOC PROGRESS REPORT ---
Subjective Progress Note for:: 10/20/19 Subjective:: Patient is doing well today. Denies fever chest pain shortness of breath or chills. Reason For Visit: ACUTE ON CHRONIC KIDNEY FAILURE Physical Exam Vital Signs: Temp Pulse Resp BP Pulse Ox 98.8 F 66 16 105/31 L 96 10/20/19 11:30 10/20/19 14:00 10/20/19 11:30 10/20/19 11:30 10/20/19 11:30 Intake & Output 10/19/19 10/20/19 10/21/19 06:59 06:59 06:59 Intake Total 1212 700 Output Total 3175 1900 Balance -1963 -1200 Weight 92.7 kg 94 kg General appearance: PRESENT: no acute distress, cooperative Neck exam: ABSENT: JVD Respiratory exam: PRESENT: clear to auscultation cheli, symmetrical, unlabored. ABSENT: tachypnea, wheezes Cardiovascular exam: PRESENT: RRR, +S1, +S2. ABSENT: tachycardia GI/Abdominal exam: PRESENT: normal bowel sounds, soft. ABSENT: rebound, rigid, tenderness Extremities exam: PRESENT: +1 edema Neurological exam: PRESENT: alert, awake, oriented to person, oriented to place, oriented to time, oriented to situation Results Laboratory Results: 10/20/19 03:34 10/20/19 03:34 10/20/19 10/20/19 03:34 03:34 WBC 3.3 L RBC 2.89 L Hgb 8.9 L Hct 26.7 L MCV 93 MCH 30.7 MCHC 33.2 RDW 15.3 H Plt Count 149 L Sodium 135.4 L Potassium 4.4 Chloride 98 Carbon Dioxide 31 H Anion Gap 6 BUN 55 H Creatinine 2.03 H Est GFR ( Amer) 29 L Glucose 135 H Calcium 7.9 L 10/15/19 12:07 Blood Blood Culture - Final NO GROWTH IN 5 DAYS 10/15/19 11:59 Blood Blood Culture - Final NO GROWTH IN 5 DAYS 10/06/19 10/17/19 10/19/19 12:23 05:27 04:02 Troponin I 0.020 NT-Pro-B Natriuret Pep 6270 H 4590 H 4050 H Impressions: Chest X-Ray 10/06/19 11:47 IMPRESSION: No acute findings Venous Doppler Study 10/16/19 00:00 IMPRESSION: No evidence of deep venous thrombosis in the right lower extremity. Assessment and Plan - Diagnosis (1) Fluid overload Qualifiers: Hypervolemia type: other Qualified Code(s): E87.79 - Other fluid overload Is this a current diagnosis for this admission?: Yes Plan: secondary to her CKD stage IV and chronic diastolic heart failure. Responded nicely to Lasix IV 80 mg with metolazone and weight is now down from 104 to 92kg. Now on Lasix 80 mg p.o. daily with metolazone 5 mg daily 30 minutes before Lasix dose. 1200 cc fluid restriction Will remove Rivera tomorrow. 10/20/2019 Diuretic regimen changed to Bumex 2 mg twice a day which is the dose patient will be discharged on. Rivera removed. I was informed by nephrology that patient has history of urinary retention and occasions and would like for us to monitor all patient with every 6 hour post void residuals to ensure that patient will not require Rivera on discharge as urinary retention has worsened patient's current kidney function in the past. (2) Acute worsening of stage 4 chronic kidney disease Is this a current diagnosis for this admission?: Yes Plan: Improving. Nonoliguric. Creatinine now at baseline. Sees Dr. Serra as outpatient. Outpatient follow-up appointment with Dr. Serra (3) Acute on chronic diastolic (congestive) heart failure Is this a current diagnosis for this admission?: Yes Plan: BP control, Lasix (4) Cellulitis of right lower extremity Is this a current diagnosis for this admission?: Yes Plan: Ancef day 6 Venous Doppler showed no evidence of DVT (5) Anemia of chronic renal failure, stage 4 (severe) Is this a current diagnosis for this admission?: Yes Plan: Iron studies showing anemia of chronic disease consistent with anemia from renal failure Received transfusion on admission Placed on Epoeitin 3000 units IV 3 times a week 10/20/2019 given dose of Injectafer by nephrology today. (6) Diabetes mellitus type 2 in obese Is this a current diagnosis for this admission?: Yes Plan: Noted to be hypoglycemic on this admission. Likely due to low p.o. intake and worsening kidney function. Sitagliptin dose renally adjusted from 100 mg to 25 mg. Lantus at a significantly reduced dose of 8 units q12h and monitor blood sugars for response. Continue Accu-Cheks and SSI ACHS. 10/20/2019 To be discharged on sitagliptin 25 mg daily and Lantus 8 units every 12 hours (7) Morbid obesity with BMI of 45.0-49.9, adult Is this a current diagnosis for this admission?: Yes (8) COPD exacerbation Is this a current diagnosis for this admission?: Yes Plan: Acute exacerbation has resolved Continue nebs as needed, LMA, ICS. (9) Hyperkalemia Is this a current diagnosis for this admission?: Yes Plan: Likely due to worsened renal function but now resolved even off veltassa. 10/20/2019 Dr. Steinberg recommended stopping Veltassa as potassium has normalized with improvement in renal function and diuretics. Hence DC veltassa on dis charge. - Time Time Spent with patient: 15-24 minutes
[2019-10-20] MEDS: BUMETANIDE 1 MG TABLET PO SCH (17:26)
[2019-10-20] MEDS: OXYCODONE-ACETAMINOPHEN 5-325 MG TABLET PO PRN (17:32)
[2019-10-20] MEDS: MELATONIN 5 MG TABLET PO SCH (21:24)
[2019-10-21] MEDS: DIPHENHYDRAMINE HCL 25 MG CAPSULE PO SCH ×4 (00:45→17:42)
[2019-10-21] MEDS: HEPARIN SOD (PORCINE) 5,000 UNIT/ML 1 ML VIAL SUBCUT SCH ×3 (05:30→21:51)
[2019-10-21] MEDS: PANTOPRAZOLE SODIUM 40 MG TABLET.DR PO SCH ×2 (05:30→16:11)
[2019-10-21] MEDS: CEFAZOLIN SODIUM 1 GM in DEXTROSE 5%-WATER 50 ML IV SCH ×2 (05:30→17:42)
[2019-10-21] MEDS: GABAPENTIN 300 MG CAPSULE PO SCH (05:30)
[2019-10-21 05:37] LABS: ANION GAP 10 (5-19); BLOOD UREA NITROGEN 60 mg/dL (7-20); CALCIUM 8.3 mg/dL (8.4-10.2); CARBON DIOXIDE 31 mmol/L (22-30); CHLORIDE 95 mmol/L (98-107); GLUCOSE 147 mg/dL (75-110); POTASSIUM 4.1 mmol/L (3.6-5.0)
[2019-10-21] MEDS: INSULIN REG, HUMAN 100 UNIT/ML 3 ML VIAL (PYX) SUBCUT SCH ×4 (08:19→21:58)
[2019-10-21] MEDS: HYDROCORTISONE 1% CREAM 28.35 GM TP SCH ×2 (10:07→17:46)
[2019-10-21] MEDS: INSULIN GLARGINE,HUM.REC.ANLOG 1,000 UNIT/10 ML VIAL SUBCUT SCH ×2 (10:07→21:59)
[2019-10-21] MEDS: DOCUSATE SODIUM 100 MG CAPSULE PO SCH (10:08)
[2019-10-21] MEDS: LORATADINE 10 MG TABLET PO SCH (10:08)
[2019-10-21] MEDS: METOPROLOL SUCCINATE 25 MG TAB.SR.24H PO SCH (10:08)
[2019-10-21] MEDS: CALCITRIOL 0.25 MCG CAPSULE PO SCH (10:08)
[2019-10-21] MEDS: LUBIPROSTONE 24 MCG CAPSULE PO SCH ×2 (10:08→17:42)
[2019-10-21] MEDS: METOLAZONE 5 MG TABLET PO SCH (10:08)
[2019-10-21] MEDS: SITAGLIPTIN PHOSPHATE 25 MG TABLET PO SCH (10:08)
[2019-10-21] MEDS: OXYCODONE-ACETAMINOPHEN 5-325 MG TABLET PO PRN ×2 (10:08→16:22)
[2019-10-21] MEDS: BUMETANIDE 1 MG TABLET PO SCH ×2 (10:09→17:42)
[2019-10-21] MEDS: MONTELUKAST SODIUM 10 MG TABLET PO SCH (10:09)
[2019-10-21] MEDS: ISOSORBIDE MONONITRATE 60 MG TAB.ER.24H PO SCH (10:09)
[2019-10-21] MEDS: ASPIRIN 81 MG TABLET, CHEWABLE PO SCH (10:09)
[2019-10-21] MEDS: ONDANSETRON HCL INJ/PF 4 MG/2 ML SDV IV PRN (11:49)
--- NOTE | 2019-10-21 16:23 | PDOC PROGRESS REPORT ---
Subjective Progress Note for:: 10/21/19 Subjective:: The patient appears to be resting at her baseline. No acute complaints except her concerned about urinary retention. Reason For Visit: ACUTE ON CHRONIC KIDNEY FAILURE Physical Exam Vital Signs: Temp Pulse Resp BP Pulse Ox 98.5 F 67 16 101/38 L 96 10/21/19 11:30 10/21/19 14:00 10/21/19 13:56 10/21/19 11:30 10/21/19 13:56 Intake & Output 10/20/19 10/21/19 10/22/19 06:59 06:59 06:59 Intake Total 700 1320 Output Total 1900 1900 Balance -1200 -580 Weight 94 kg 93.3 kg General appearance: PRESENT: no acute distress, cooperative, morbidly obese, well-developed, other - Resting on nasal cannula Head exam: PRESENT: atraumatic, normocephalic Mouth exam: PRESENT: dry mucosa, tongue midline Respiratory exam: PRESENT: clear to auscultation cheli - Anteriorly, unlabored, other - Decreased breath sounds at bases. ABSENT: accessory muscle use, rales, rhonchi, stridor, tachypnea Cardiovascular exam: PRESENT: RRR, +S1, +S2 GI/Abdominal exam: PRESENT: normal bowel sounds, soft. ABSENT: guarding, tenderness Extremities exam: PRESENT: pedal edema, +1 edema Neurological exam: PRESENT: alert, awake, oriented to person, oriented to place, oriented to time, oriented to situation, CN II-XII grossly intact Psychiatric exam: PRESENT: appropriate affect. ABSENT: agitated, anxious Skin exam: PRESENT: dry, normal color, warm. ABSENT: rash Results Laboratory Results: 10/20/19 03:34 10/21/19 04:19 10/21/19 04:19 Sodium 135.8 L Potassium 4.1 Chloride 95 L Carbon Dioxide 31 H Anion Gap 10 BUN 60 H Creatinine 2.42 H Est GFR ( Amer) 24 L Glucose 147 H Calcium 8.3 L 10/15/19 12:07 Blood Blood Culture - Final NO GROWTH IN 5 DAYS 10/15/19 11:59 Blood Blood Culture - Final NO GROWTH IN 5 DAYS 10/06/19 10/17/19 10/19/19 12:23 05:27 04:02 Troponin I 0.020 NT-Pro-B Natriuret Pep 6270 H 4590 H 4050 H Impressions: Chest X-Ray 10/06/19 11:47 IMPRESSION: No acute findings Venous Doppler Study 10/16/19 00:00 IMPRESSION: No evidence of deep venous thrombosis in the right lower extremity. Assessment and Plan - Diagnosis (1) Fluid overload Qualifiers: Hypervolemia type: other Qualified Code(s): E87.79 - Other fluid overload Is this a current diagnosis for this admission?: Yes Plan: secondary to her CKD stage IV and chronic diastolic heart failure. Responded nicely to Lasix IV 80 mg with metolazone and weight is now down from 104 to 92kg. Now on Lasix 80 mg p.o. daily with metolazone 5 mg daily 30 minutes before Lasix dose. 1200 cc fluid restriction Will remove Rivera tomorrow. 10/20/2019 Diuretic regimen changed to Bumex 2 mg twice a day which is the dose patient will be discharged on. Rivera removed. I was informed by nephrology that patient has history of urinary retention and occasions and would like for us to monitor all patient with every 6 hour post void residuals to ensure that patient will not require Rivera on discharge as urinary retention has worsened patient's current kidney function in the past. 10/21/2019-nephrology has suggested change of diuretic therapy. Furosemide was discontinued and Bumex 2 mg twice a day was initiated as noted above. This has created a significant (2) Acute worsening of stage 4 chronic kidney disease Is this a current diagnosis for this admission?: Yes (3) Acute on chronic diastolic (congestive) heart failure Is this a current diagnosis for this admission?: Yes (4) Anemia of chronic renal failure, stage 4 (severe) Is this a current diagnosis for this admission?: Yes (5) Diabetes mellitus type 2 in obese Is this a current diagnosis for this admission?: Yes (6) COPD exacerbation Is this a current diagnosis for this admission?: Yes (7) Morbid obesity with BMI of 40.0-44.9, adult Is this a current diagnosis for this admission?: Yes (8) CAD (coronary artery disease) Qualifiers: Coronary Disease-Associated Artery/Lesion type: [place] artery [place] vs. transplanted heart: [place] heart Associated angina: without angina Qualified Code(s): I25.10 - Atherosclerotic heart disease of [place] coronary artery without angina pectoris Is this a current diagnosis for this admission?: Yes (9) Osteoarthritis of back Qualifiers: Spinal osteoarthritis complication: without myelopathy or radiculopathy Qualified Code(s): M47.815 - Spondylosis without myelopathy or radiculopathy, thoracolumbar region Is this a current diagnosis for this admission?: Yes (10) Back pain, chronic Qualifiers: Back pain location: low back pain Back pain laterality: midline Sciatica presence: without sciatica Qualified Code(s): M54.5 - Low back pain; G89.29 - Other chronic pain Is this a current diagnosis for this admission?: Yes (11) Hyperkalemia Is this a current diagnosis for this admission?: Yes (12) Diabetic neuropathy associated with type 2 diabetes mellitus Qualifiers: Diabetes mellitus complication detail: diabetic polyneuropathy Qualified Code(s): E11.42 - Type 2 diabetes mellitus with diabetic polyneuropathy Is this a current diagnosis for this admission?: Yes
--- NOTE | 2019-10-21 21:43 | PDOC PROGRESS REPORT ---
Subjective Progress Note for:: 10/21/19 Subjective:: When he came into the room today the patient is comfortably sitting on her bedside chair. She states that she is feeling much better in terms of her breathing. Her Rivera catheter was removed yesterday morning. During the early evening I had the nurse do a bladder scan and she has about a 300+ mL of urine. Subsequently the patient is started making urine and in fact she has made about 1900 mL of urine output for the past 24 hours. Today another bladder scan was done after urine and there was about 110 mL of urine left. Patient also receive a dose of IV Injectafer yesterday. Reason For Visit: ACUTE ON CHRONIC KIDNEY FAILURE Physical Exam Vital Signs: Temp Pulse Resp BP Pulse Ox 98.4 F 65 18 126/42 H 99 10/21/19 08:03 10/21/19 08:03 10/21/19 08:03 10/21/19 08:03 10/21/19 08:03 Intake & Output 10/20/19 10/21/19 10/22/19 06:59 06:59 06:59 Intake Total 700 1320 Output Total 1900 1900 Balance -1200 -580 Weight 94 kg 93.3 kg Exam: General appearance: PRESENT: no acute distress, cooperative, well-developed, well-nourished Head exam: PRESENT: atraumatic, normocephalic Eye exam: PRESENT: conjunctiva pale k, PERRLA. ABSENT: scleral icterus Neck exam: ABSENT: JVD Respiratory exam: PRESENT: Diminished breath sounds. Positive bibasilar crackles ABSENT: crackles, rales, rhonchi, unlabored, wheezes Cardiovascular exam: PRESENT: Regular rate rhythm -+S1, +S2. Grade 2/6 systolic murmur GI/Abdominal exam: PRESENT: normal bowel sounds, soft. ABSENT: guarding, mass, tenderness Extremities exam: Grade 1 bilateral lower extremity pitting edema Neurological exam: PRESENT: alert, awake, oriented to person, place and time. Skin exam: PRESENT: dry, warm, lower aspect of her right lower extremity is still mildly erythematous and mildly warm. Cardiovascular exam: PRESENT: +S1, +S2 GI/Abdominal exam: PRESENT: distended, normal bowel sounds, soft. ABSENT: firm, organomegaly, tenderness Results Laboratory Results: 10/20/19 03:34 10/21/19 04:19 10/21/19 04:19 Sodium 135.8 L Potassium 4.1 Chloride 95 L Carbon Dioxide 31 H Anion Gap 10 BUN 60 H Creatinine 2.42 H Est GFR ( Amer) 24 L Glucose 147 H Calcium 8.3 L 10/15/19 12:07 Blood Blood Culture - Final NO GROWTH IN 5 DAYS 10/15/19 11:59 Blood Blood Culture - Final NO GROWTH IN 5 DAYS 10/06/19 10/17/19 10/19/19 12:23 05:27 04:02 Troponin I 0.020 NT-Pro-B Natriuret Pep 6270 H 4590 H 4050 H Impressions: Chest X-Ray 10/06/19 11:47 IMPRESSION: No acute findings Venous Doppler Study 10/16/19 00:00 IMPRESSION: No evidence of deep venous thrombosis in the right lower extremity. Assessment & Plan - Diagnosis (1) Acute kidney injury superimposed on chronic kidney disease Is this a current diagnosis for this admission?: Yes Plan: Patient's urine output is excellent and has been responding well with current diuresis. Her kidney function is actually improved and is currently around baseline kidney function. I changed her Lasix to Bumex 2 mg twice daily which is actually her home medications. Continue metolazone. Continue to monitor kidney function and electrolytes. She does not need renal replacement therapy at this time. Patient has urinary retention. This can also affect her kidney function. Smiley truong needs a urology evaluation as an outpatient. (2) CKD (chronic kidney disease), stage IV Is this a current diagnosis for this admission?: Yes Plan: Currently around baseline kidney function. (3) Fluid overload Qualifiers: Hypervolemia type: other Qualified Code(s): E87.79 - Other fluid overload Is this a current diagnosis for this admission?: Yes Plan: Improving with diuretics. (4) Acute on chronic diastolic (congestive) heart failure Is this a current diagnosis for this admission?: Yes (5) Cellulitis of right lower extremity Is this a current diagnosis for this admission?: Yes Plan: On IV antibiotics per hospitalist service. (6) Anemia in chronic kidney disease (CKD) Qualifiers: Chronic kidney disease stage: stage 4 (severe) Qualified Code(s): N18.4 - Chronic kidney disease, stage 4 (severe); D63.1 - Anemia in chronic kidney disease Is this a current diagnosis for this admission?: Yes Plan: On Retacrit every couple of days. Increase Retacrit to 5000 units every 2 days IV. Her iron saturation is only 12% and ferritin 356. I gave her a dose of Injectafer 750 mg IV, and 10/20/2019. (7) Diabetes mellitus type 2 in obese Is this a current diagnosis for this admission?: Yes (8) Hypertension Is this a current diagnosis for this admission?: Yes Plan: Controlled. (9) Morbid obesity with BMI of 40.0-44.9, adult Is this a current diagnosis for this admission?: Yes - Time Time with patient: Greater than 35 minutes
[2019-10-21] MEDS: MELATONIN 5 MG TABLET PO SCH (21:58)
[2019-10-22] MEDS: OXYCODONE-ACETAMINOPHEN 5-325 MG TABLET PO PRN ×2 (05:25→11:42)
[2019-10-22] MEDS: CEFAZOLIN SODIUM 1 GM in DEXTROSE 5%-WATER 50 ML IV SCH (05:25)
[2019-10-22] MEDS: PANTOPRAZOLE SODIUM 40 MG TABLET.DR PO SCH ×2 (05:25→18:28)
[2019-10-22] MEDS: GABAPENTIN 300 MG CAPSULE PO SCH (05:25)
[2019-10-22] MEDS: DIPHENHYDRAMINE HCL 25 MG CAPSULE PO SCH ×4 (05:25→18:28)
[2019-10-22] MEDS: HEPARIN SOD (PORCINE) 5,000 UNIT/ML 1 ML VIAL SUBCUT SCH ×2 (06:28→14:22)
[2019-10-22 06:34] LABS: HEMATOCRIT 27.1 % (36.0-47.0); HEMOGLOBIN 9.2 g/dL (12.0-15.5); MEAN CORPUSCULAR HEMOGLOBIN 31.3 pg (27.0-33.4); MEAN CORPUSCULAR HGB CONC 33.9 g/dL (32.0-36.0); MEAN CORPUSCULAR VOLUME 92 fl (80-97); PLATELET COUNT 191 10^3/uL (150-450); RED BLOOD COUNT 2.94 10^6/uL (3.72-5.28); RED CELL DISTRIBUTION WIDTH 15.5 % (11.5-14.0); WHITE BLOOD COUNT 3.5 10^3/uL (4.0-10.5)
[2019-10-22 07:01] LABS: ANION GAP 10 (5-19); BLOOD UREA NITROGEN 59 mg/dL (7-20); CALCIUM 8.4 mg/dL (8.4-10.2); CARBON DIOXIDE 32 mmol/L (22-30); CHLORIDE 94 mmol/L (98-107); GLUCOSE 126 mg/dL (75-110); POTASSIUM 4.3 mmol/L (3.6-5.0)
[2019-10-22] MEDS: INSULIN REG, HUMAN 100 UNIT/ML 3 ML VIAL (PYX) SUBCUT SCH ×3 (08:25→17:20)
[2019-10-22] MEDS: SITAGLIPTIN PHOSPHATE 25 MG TABLET PO SCH (10:32)
[2019-10-22] MEDS: HYDROCORTISONE 1% CREAM 28.35 GM TP SCH ×2 (10:32→18:28)
[2019-10-22] MEDS: METOLAZONE 5 MG TABLET PO SCH (10:33)
[2019-10-22] MEDS: ISOSORBIDE MONONITRATE 60 MG TAB.ER.24H PO SCH (10:33)
[2019-10-22] MEDS: METOPROLOL SUCCINATE 25 MG TAB.SR.24H PO SCH (10:33)
[2019-10-22] MEDS: ASPIRIN 81 MG TABLET, CHEWABLE PO SCH (10:33)
[2019-10-22] MEDS: INSULIN GLARGINE,HUM.REC.ANLOG 1,000 UNIT/10 ML VIAL SUBCUT SCH (10:34)
[2019-10-22] MEDS: MONTELUKAST SODIUM 10 MG TABLET PO SCH (10:34)
[2019-10-22] MEDS: BUMETANIDE 1 MG TABLET PO SCH ×2 (10:34→18:28)
[2019-10-22] MEDS: LORATADINE 10 MG TABLET PO SCH (10:34)
[2019-10-22] MEDS: LUBIPROSTONE 24 MCG CAPSULE PO SCH ×2 (10:34→18:28)
[2019-10-22] MEDS: DOCUSATE SODIUM 100 MG CAPSULE PO SCH (10:34)
[2019-10-22] MEDS: EPOETIN ALFA-EPBX 5,000 UNITS (ESRD) in SYRINGE IV SCH ×3 (10:35)
[2019-10-22] MEDS: ONDANSETRON HCL INJ/PF 4 MG/2 ML SDV IV PRN (11:44)
[2019-10-22 17:28] VITALS: BP 98/32
--- NOTE | 2019-10-22 18:09 | PDOC DISCHARGE SUMMARY ---
Impression - Admit/DC Date/PCP Admission Date/Primary Care Provider: 10/06/19 14:55 CARLOS LARSON MD Discharge Date: 10/22/19 - Discharge Diagnosis (1) Acute worsening of stage 4 chronic kidney disease Is this a current diagnosis for this admission?: Yes (2) Acute on chronic diastolic (congestive) heart failure Is this a current diagnosis for this admission?: Yes (3) Anemia of chronic renal failure, stage 4 (severe) Is this a current diagnosis for this admission?: Yes (4) Diabetes mellitus type 2 in obese Is this a current diagnosis for this admission?: Yes (5) COPD exacerbation Is this a current diagnosis for this admission?: Yes (6) Morbid obesity with BMI of 40.0-44.9, adult Is this a current diagnosis for this admission?: Yes (7) CAD (coronary artery disease) Is this a current diagnosis for this admission?: Yes (8) Osteoarthritis of back Is this a current diagnosis for this admission?: Yes (9) Back pain, chronic Is this a current diagnosis for this admission?: Yes (10) Hyperkalemia Is this a current diagnosis for this admission?: Yes (11) Diabetic neuropathy associated with type 2 diabetes mellitus Is this a current diagnosis for this admission?: Yes - Additional Information Resuscitation Status: Do Not Resuscitate Discharge Diet: Cardiac, Diabetic Discharge Activity: Activity As Tolerated, Balance Activity w/Rest, Weigh Daily Referrals: CARLOS LARSON MD [Primary Care Provider] - 10/28/19 4:00 pm LASHANDA ALEXIS MD [ACTIVE STAFF] - 10/29/19 12:30 pm DANI PANDA DO [NO LOCAL MD] - 10/26/19 11:00 am (Please refer patient to Urology. ) Prescriptions: Bumetanide [Bumex 1 mg Tablet] 1 mg PO BID 14 Days #28 tablet Metolazone [Zaroxolyn 5 mg Tablet] 5 mg PO DAILY 14 Days #14 tablet Home Medications: Albuterol Sulfate [Proair HFA Inhalation Aerosol 8.5 gm MDI] 2 puff IH DAILY Albuterol Sulfate [Ventolin 0.083% Neb 2.5 mg/3 mL Ampul] 3 ml NEB Q6HP PRN 07/29/19 Aspirin [Aspirin 81 mg Chewable Tablet] 81 mg PO DAILY 07/29/19 Calcitriol [Rocaltrol 0.25 mcg Capsule] 0.25 mcg PO MOWEFR@1000 07/29/19 Clopidogrel Bisulfate [Plavix 75 mg Tablet] 75 mg PO DAILY 07/29/19 Diazepam [Valium 5 mg Tablet] 5 mg PO DAILY 07/29/19 Diphenhydramine HCl [Diphenhist] 25 mg PO Q6 07/29/19 Docusate Sodium [Colace 100 mg Capsule] 100 mg PO DAILY 07/29/19 Epoetin Aung [Procrit Inj 20,000 Unit/1 ml Vial (Renal)] 10,000 unit IM Q7D 07/29/19 Ergocalciferol (Vitamin D2) [Drisdol 50,000 unit (1.25MG) Capsule] 50,000 unit PO BALDERRAMA@1000 07/29/19 Fenofibrate 160 mg PO DAILY 07/29/19 Fluticasone/Salmeterol [Advair 250-50 Diskus 14 Dose/Diskus] 1 puff IH Q12 07/29/19 Gabapentin [Neurontin] 600 mg PO Q12 07/29/19 Hydroxyzine Pamoate [Vistaril 50 mg Capsule] 50 mg PO TIDP PRN 07/29/19 Iron Ps Complex/B12/Folic Acid [Ferrex 150 Forte Capsule] 1 cap PO DAILY 07/29/19 Isosorbide Mononitrate [Imdur 60 mg Tablet.er] 60 mg PO DAILY 07/29/19 Linaclotide [Linzess] 72 mcg PO DAILY 07/29/19 Loperamide HCl [Imodium A-D] 2 mg PO DAILYP PRN 07/29/19 Loratadine [Claritin 10 mg Tablet] 10 mg PO DAILY 07/29/19 Melatonin 5 mg SL QHS 07/29/19 Metoprolol Succinate [Toprol Xl 25 mg Tab.sr] 25 mg PO DAILY 07/29/19 Montelukast Sodium [Singulair 10 mg Tablet] 10 mg PO DAILY 07/29/19 Nitroglycerin 0.4 mg SL Q5HP PRN 07/29/19 Omeprazole 40 mg PO BID 07/29/19 Ondansetron HCl [Zofran 4 mg Tablet] 4 mg PO DAILY 07/29/19 Oxycodone HCl/Acetaminophen [Percocet 5-325 mg Tablet] 1 tab PO Q6HP PRN 07/29/19 Patiromer Calcium Sorbitex [Veltassa] 16.8 gm PO DAILY 07/29/19 Polyvinyl Alcohol [Artificial Tears] 1 drop OU Q2HP PRN 07/29/19 Promethazine HCl [Phenergan 25 mg Tablet] 25 mg PO QHS 07/29/19 Rosuvastatin Calcium [Crestor] 40 mg PO QHS 07/29/19 Sitagliptin Phosphate [Januvia] 100 mg PO DAILY 07/29/19 Telmisartan [Micardis 20 mg Tablet] 20 mg PO DAILY 07/29/19 Tiotropium [place] [Spiriva Handihaler 5 Cap/Kit (18 Mcg/Cap)] 1 puff IH DAILY 07/29/19 Bumetanide [Bumex 1 mg Tablet] 1 mg PO BID 14 Days #28 tablet 10/22/19 Hydrocortisone [Hydrocortisone 1% Cream 28.35 gm] 1 applic TP BID tube 10/22/19 Insulin Glargine,Hum.rec.anlog [Basaglar Kwikpen U-100] 10 units SQ Q12 #0 10/22/19 Insulin Glargine,Hum.rec.anlog [Lantus Insulin 100 Unit/1 ml 10 ml] 8 unit SUBCUT Q12 unit 10/22/19 Loratadine [Claritin 10 mg Tablet] 10 mg PO DAILY tablet 10/22/19 Melatonin [Melatonin 5 mg Tablet] 5 mg PO QHS tablet 10/22/19 Metolazone [Zaroxolyn 5 mg Tablet] 5 mg PO DAILY 14 Days #14 tablet 10/22/19 Sitagliptin Phosphate [Januvia 25 mg Tablet] 25 mg PO DAILY tablet 10/22/19 Physical Exam Vital Signs: Temp Pulse Resp BP Pulse Ox 98.9 F 67 20 98/32 L 94 10/22/19 17:47 10/22/19 17:47 10/22/19 17:47 10/22/19 17:47 10/22/19 17:47 Intake & Output 10/21/19 10/22/19 10/23/19 06:59 06:59 06:59 Intake Total 1320 1137 240 Output Total 1900 3450 Balance -580 -2313 240 Weight 93.3 kg 90.8 kg Results Laboratory Results: WBC 3.5 10^3/uL (4.0-10.5) L 10/22/19 05:47 RBC 2.94 10^6/uL (3.72-5.28) L 10/22/19 05:47 Hgb 9.2 g/dL (12.0-15.5) L 10/22/19 05:47 Hct 27.1 % (36.0-47.0) L 10/22/19 05:47 MCV 92 fl (80-97) 10/22/19 05:47 MCH 31.3 pg (27.0-33.4) 10/22/19 05:47 MCHC 33.9 g/dL (32.0-36.0) 10/22/19 05:47 RDW 15.5 % (11.5-14.0) H 10/22/19 05:47 Plt Count 191 10^3/uL (150-450) 10/22/19 05:47 Lymph % (Auto) 15.4 % (13-45) 10/16/19 05:16 [place] % (Auto) 8.9 % (3-13) 10/16/19 05:16 Eos % (Auto) 5.7 % (0-6) 10/16/19 05:16 Baso % (Auto) 0.7 % (0-2) 10/16/19 05:16 Reticulocyte # 0.106 10^6/uL (0.028-0.122) 10/13/19 03:33 Absolute Neuts (auto) 3.0 10^3/uL (1.7-8.2) 10/16/19 05:16 Absolute Lymphs (auto) 0.7 10^3/uL (0.5-4.7) 10/16/19 05:16 Absolute Monos (auto) 0.4 10^3/uL (0.1-1.4) 10/16/19 05:16 Absolute Eos (auto) 0.2 10^3/uL (0.0-0.6) 10/16/19 05:16 Absolute Basos (auto) 0.0 10^3/uL (0.0-0.2) 10/16/19 05:16 Seg Neutrophils % 69.3 % (42-78) 10/16/19 05:16 Retic Count (auto) 3.91 % (0.66-2.85) H 10/13/19 03:33 Sodium 136.2 mmol/L (137-145) L 10/22/19 05:47 Potassium 4.3 mmol/L (3.6-5.0) 10/22/19 05:47 Chloride 94 mmol/L (98-107) L 10/22/19 05:47 Carbon Dioxide 32 mmol/L (22-30) H 10/22/19 05:47 Anion Gap 10 (5-19) 10/22/19 05:47 BUN 59 mg/dL (7-20) H 10/22/19 05:47 Creatinine 2.49 mg/dL (0.52-1.25) H 10/22/19 05:47 Est GFR ( Amer) 23 (>60) L 10/22/19 05:47 Est GFR (Non-Af Amer) Cancelled 10/10/19 08:08 Est GFR (MDRD) Non-Af 19 (>60) L 10/22/19 05:47 Glucose 126 mg/dL (75-110) H 10/22/19 05:47 POC Glucose 92 mg/dL (70-110) 10/22/19 16:58 Lactic Acid (Sepsis) 0.5 mmol/L (0.7-2.1) L 10/06/19 12:23 Calcium 8.4 mg/dL (8.4-10.2) 10/22/19 05:47 Phosphorus 4.3 mg/dL (2.5-4.5) 10/14/19 05:53 Magnesium 1.8 mg/dL (1.6-2.3) 10/15/19 01:35 Iron 32.4 ug/dL (37-170) L 10/13/19 03:33 TIBC 265 ug/dL (250-450) 10/13/19 03:33 % Saturation 12 % 10/13/19 03:33 Ferritin 356.00 ng/mL (11.1-264.0) H 10/13/19 03:33 Total Bilirubin 0.6 mg/dL (0.2-1.3) 10/12/19 04:01 Direct Bilirubin 0.3 mg/dL (0.0-0.4) 10/12/19 04:01 Neonat Total Bilirubin Not Reportable 10/12/19 04:01 Neonat Direct Bilirubin Not Reportable 10/12/19 04:01 Neonat Indirect Bili Not Reportable 10/12/19 04:01 AST 25 U/L (14-36) 10/12/19 04:01 ALT 11 U/L (<35) 10/12/19 04:01 Alkaline Phosphatase 53 U/L (38-126) 10/12/19 04:01 Troponin I 0.020 ng/mL 10/06/19 12:23 NT-Pro-B Natriuret Pep 4050 pg/mL (<125) H 10/19/19 04:02 Total Protein 5.8 g/dL (6.3-8.2) L 10/12/19 04:01 Albumin 2.8 g/dL (3.5-5.0) L 10/12/19 04:01 EGFR Cancelled 10/10/19 08:08 Vitamin B12 294.0 pg/mL (239-931) 10/13/19 03:33 Folate 6.53 ng/mL (>2.76) 10/13/19 03:33 TSH 3.12 uIU/mL (0.47-4.68) 10/13/19 03:33 PTH Intact 150.3 pg/mL (10.0-65.0) H 10/13/19 03:33 Urine Color YELLOW 10/07/19 22:50 Urine Appearance SLIGHTLY-CLOUDY 10/07/19 22:50 Urine pH 5.0 (5.0-9.0) 10/07/19 22:50 Ur Specific [place] 1.009 10/07/19 22:50 Urine Protein NEGATIVE mg/dL (NEGATIVE) 10/07/19 22:50 Urine Glucose (UA) NEGATIVE mg/dL (NEGATIVE) 10/07/19 22:50 Urine Ketones NEGATIVE mg/dL (NEGATIVE) 10/07/19 22:50 Urine Blood MODERATE (NEGATIVE) H 10/07/19 22:50 Urine Nitrite (Reflex) NEGATIVE (NEGATIVE) 10/07/19 22:50 Urine Bilirubin NEGATIVE (NEGATIVE) 10/07/19 22:50 Urine Urobilinogen NEGATIVE mg/dL (<2.0) 10/07/19 22:50 Leukocyte Esterase Rfl LARGE (NEGATIVE) H 10/07/19 22:50 Urine RBC (Auto) 11 /HPF 10/07/19 22:50 Urine WBC (Reflex) 41 /HPF 10/07/19 22:50 Squamous Epi Cells Auto 5 /HPF 10/07/19 22:50 Urine Ascorbic Acid NEGATIVE (NEGATIVE) 10/07/19 22:50 Blood Type O POSITIVE 10/10/19 09:41 Antibody Screen POSITIVE 10/10/19 09:41 Antibody Identification Anti-K 10/10/19 09:41 Crossmatch See Detail 10/10/19 09:41 10/06/19 10/17/19 10/19/19 12:23 05:27 04:02 Troponin I 0.020 NT-Pro-B Natriuret Pep 6270 H 4590 H 4050 H Impressions: Chest X-Ray 10/06/19 11:47 IMPRESSION: No acute findings Venous Doppler Study 10/16/19 00:00 IMPRESSION: No evidence of deep venous thrombosis in the right lower extremity.
--- NOTE | 2019-10-22 21:34 | PDOC PROGRESS REPORT ---
Subjective Progress Note for:: 10/22/19 Subjective:: The patient continues to do well. She has been able to empty her bladder better for the past 12 hours of days. Her last bladder scan showed about 23 and 36 mL of urine in the bladder after urination. Still making adequate amount of urine with a total of 3450 mL of urine output the only complaint she has today is pain in the right side starting from the hip down to her leg. Other than that patient is actually able to walk down the [place]. She has no other complaints. Reason For Visit: ACUTE ON CHRONIC KIDNEY FAILURE Physical Exam Vital Signs: Temp Pulse Resp BP Pulse Ox 98.3 F 65 20 123/38 L 99 10/22/19 07:53 10/22/19 07:53 10/22/19 07:53 10/22/19 07:53 10/22/19 07:53 Intake & Output 10/21/19 10/22/19 10/23/19 06:59 06:59 06:59 Intake Total 1320 1137 Output Total 1900 3450 Balance -580 -2313 Weight 93.3 kg 90.8 kg Exam: General appearance: PRESENT: no acute distress, cooperative, well-developed, well-nourished Head exam: PRESENT: atraumatic, normocephalic Eye exam: PRESENT: conjunctiva slightly pale PERRLA. ABSENT: scleral icterus Neck exam: ABSENT: JVD Respiratory exam: PRESENT: Diminished breath sounds. Still with bibasilar crackles ABSENT: crackles, rales, rhonchi, unlabored, wheezes Cardiovascular exam: PRESENT: Regular rate rhythm -+S1, +S2. Grade 2/6 systolic murmur GI/Abdominal exam: PRESENT: normal bowel sounds, soft. ABSENT: guarding, mass, tenderness Extremities exam: Grade 1 bilateral lower extremity pitting edema Neurological exam: PRESENT: alert, awake, oriented to person, place and time. Skin exam: PRESENT: dry, warm, and lower leg still has with some erythema and warmth but slightly improved. Cardiovascular exam: PRESENT: +S1, +S2 GI/Abdominal exam: PRESENT: distended, normal bowel sounds, soft. ABSENT: firm, organomegaly, tenderness Results Laboratory Results: 10/22/19 05:47 10/22/19 05:47 10/22/19 10/22/19 05:47 05:47 WBC 3.5 L RBC 2.94 L Hgb 9.2 L Hct 27.1 L MCV 92 MCH 31.3 MCHC 33.9 RDW 15.5 H Plt Count 191 Sodium 136.2 L Potassium 4.3 Chloride 94 L Carbon Dioxide 32 H Anion Gap 10 BUN 59 H Creatinine 2.49 H Est GFR ( Amer) 23 L Glucose 126 H Calcium 8.4 10/06/19 10/17/19 10/19/19 12:23 05:27 04:02 Troponin I 0.020 NT-Pro-B Natriuret Pep 6270 H 4590 H 4050 H Impressions: Chest X-Ray 10/06/19 11:47 IMPRESSION: No acute findings Venous Doppler Study 10/16/19 00:00 IMPRESSION: No evidence of deep venous thrombosis in the right lower extremity. Assessment & Plan - Diagnosis (1) Acute kidney injury superimposed on chronic kidney disease Is this a current diagnosis for this admission?: Yes Plan: Patient's urine output is excellent and has been responding well with current diuresis. Her kidney function is actually improved and is currently around baseline kidney function. I changed her Lasix to Bumex 2 mg twice daily which is actually her home medications. She should go home with this dose. Continue metolazone. Continue to monitor kidney function and electrolytes. She does not need renal replacement therapy at this time. Patient has urinary retention. This can also affect her kidney function. Patient needs a urology evaluation as an outpatient. (2) CKD (chronic kidney disease), stage IV Is this a current diagnosis for this admission?: Yes Plan: Currently around baseline kidney function. (3) Fluid overload Qualifiers: Hypervolemia type: other Qualified Code(s): E87.79 - Other fluid overload Is this a current diagnosis for this admission?: Yes Plan: Improving with diuretics. (4) Acute on chronic diastolic (congestive) heart failure Is this a current diagnosis for this admission?: Yes (5) Cellulitis of right lower extremity Is this a current diagnosis for this admission?: Yes Plan: On IV antibiotics per hospitalist service. (6) Anemia in chronic kidney disease (CKD) Qualifiers: Chronic kidney disease stage: stage 4 (severe) Qualified Code(s): N18.4 - Chronic kidney disease, stage 4 (severe); D63.1 - Anemia in chronic kidney disease Is this a current diagnosis for this admission?: Yes Plan: On Retacrit every couple of days. Increase Retacrit to 5000 units every 2 days IV. Her iron saturation is only 12% and ferritin 356. I gave her a dose of Injectafer 750 mg IV, and 10/20/2019. (7) Diabetes mellitus type 2 in obese Is this a current diagnosis for this admission?: Yes (8) Hypertension Is this a current diagnosis for this admission?: Yes Plan: Controlled. (9) Morbid obesity with BMI of 40.0-44.9, adult Is this a current diagnosis for this admission?: Yes - Notes Notes: From nephrology standpoint I think the patient is stable and improved enough to go home today. Patient has follow-up appointment with me next week, October 28. Patient will need to have a repeat CBC and basic metabolic panel a couple of days prior to the follow-up visit. - Time Time with patient: 15-25 minutes
== END 2019-10-22 18:45 | disposition home health service (06) | DRG 682 ==
LOC: ER 11:34 → EH 14:55 → OBSVTOIN 14:55 → 5 18:43
PROVIDERS: ADMIT Hospitalist; ATTEND Hospitalist
PROC: 30233N1 Transfusion of Nonautologous Red Blood Cells into Peripheral Vein, Percutaneous Approach (ICD-10-PCS; principal; 2019-10-10)
DX: N17.9 Acute kidney failure, unspecified (principal); I50.33 Acute on chronic diastolic (congestive) heart failure; I13.0 Hypertensive heart and chronic kidney disease with heart failure and stage 1 through stage 4 chronic kidney disease, or unspecified chronic kidney disease; J44.1 Chronic obstructive pulmonary disease with (acute) exacerbation; L03.115 Cellulitis of right lower limb; Z68.41 Body mass index [BMI] 40.0-44.9, adult; N18.4 Chronic kidney disease, stage 4 (severe); I25.10 Atherosclerotic heart disease of native coronary artery without angina pectoris; E11.22 Type 2 diabetes mellitus with diabetic chronic kidney disease; E11.42 Type 2 diabetes mellitus with diabetic polyneuropathy; E87.5 Hyperkalemia; D63.1 Anemia in chronic kidney disease; M54.5 Low back pain; M47.815 Spondylosis without myelopathy or radiculopathy, thoracolumbar region; E66.01 Morbid (severe) obesity due to excess calories; Z66 Do not resuscitate; I25.2 Old myocardial infarction; Z86.73 Personal history of transient ischemic attack (TIA), and cerebral infarction without residual deficits; Z79.01 Long term (current) use of anticoagulants; Z79.84 Long term (current) use of oral hypoglycemic drugs; Z79.82 Long term (current) use of aspirin; Z79.4 Long term (current) use of insulin; Z79.51 Long term (current) use of inhaled steroids; Z79.899 Other long term (current) drug therapy
CPT/HCPCS: 36415; 36430; 71045; 80048; 80053; 81001; 82607; 82728; 82746; 82962; 83540; 83550; 83605; 83735; 83880; 83970; 84100; 84443; 84484; 85025; 85027; 85045; 86850; 86870; 86900; 86901; 86920; 86922; 87040; 93005; 93010; 93971; 94640; 99285; C1758; J0690; J1439; J1644; J1815; J1940; J2405; J2550; J3490; J7050; J7060; J7620; P9016; Q5105; Q5106; S0119

== ENCOUNTER → 2019-12-28 | Outpatient (CLI) | payer MEDICARE, MEDICAID ==
[2019-12-28 13:02] LABS: ANION GAP 9 (5-19); BLOOD UREA NITROGEN 97 mg/dL (7-20); CALCIUM 8.5 mg/dL (8.4-10.2); CARBON DIOXIDE 29 mmol/L (22-30); CHLORIDE 99 mmol/L (98-107); GLUCOSE 135 mg/dL (75-110); POTASSIUM 5.5 mmol/L (3.6-5.0)
== END ==
LOC: OD 11:17
PROVIDERS: ATTEND Internal Medicine Nephrology
DX: N18.4 Chronic kidney disease, stage 4 (severe) (principal)
CPT/HCPCS: 36415; 80048

== ENCOUNTER → 2019-12-31 | Outpatient (CLI) | payer MEDICARE, MEDICAID ==
[2019-12-31 10:58] LABS: ANION GAP 8 (5-19); BLOOD UREA NITROGEN 90 mg/dL (7-20); CALCIUM 9.1 mg/dL (8.4-10.2); CARBON DIOXIDE 29 mmol/L (22-30); CHLORIDE 101 mmol/L (98-107); GLUCOSE 120 mg/dL (75-110); POTASSIUM 5.7 mmol/L (3.6-5.0)
== END ==
LOC: OD 09:55
PROVIDERS: ATTEND Internal Medicine Nephrology
DX: N18.4 Chronic kidney disease, stage 4 (severe) (principal)
CPT/HCPCS: 36415; 80048

== ENCOUNTER → 2020-01-15 | Outpatient (CLI) | payer MEDICARE, MEDICAID ==
[2020-01-15 12:08] LABS: ANION GAP 7 (5-19); BLOOD UREA NITROGEN 41 mg/dL (7-20); CALCIUM 8.4 mg/dL (8.4-10.2); CARBON DIOXIDE 23 mmol/L (22-30); CHLORIDE 110 mmol/L (98-107); GLUCOSE 61 mg/dL (75-110); POTASSIUM 4.9 mmol/L (3.6-5.0)
== END ==
LOC: OD 10:57
PROVIDERS: ATTEND Internal Medicine Nephrology
DX: N17.9 Acute kidney failure, unspecified (principal); I12.9 Hypertensive chronic kidney disease with stage 1 through stage 4 chronic kidney disease, or unspecified chronic kidney disease; N18.4 Chronic kidney disease, stage 4 (severe); E11.22 Type 2 diabetes mellitus with diabetic chronic kidney disease; D63.1 Anemia in chronic kidney disease; E87.5 Hyperkalemia
CPT/HCPCS: 36415; 80048

== ENCOUNTER → 2020-05-18 | Outpatient (CLI) | payer MEDICARE, MEDICAID ==
[2020-05-18 14:21] VITALS: BP 113/54
--- NOTE | 2020-05-18 14:21 | ER RDC ASSESSMENT REPORT ---
Intake - In the Last 14 days Have you traveled outside [place]?: No Have you been in close contact with someone CONFIRMED: No Worked in Healthcare?: No - Symptoms Subjective Fever([place] feverish): No Chills: Yes Muscule Aches: Yes Runny Nose: Yes Sore Throat: No Cough (New or worsening chronic cough): Yes Shortness of breath: Yes Nausea or Vomiting: Yes Headache: Yes Abdominal Pain: No Diarrhea(3 or more loose stools in last 24 hours): No - Do you have any of the following Chronic lung disease: Asthma or emphysema or COPD: Yes Cystic Fibrosis: No Diabetes: Yes High Blood Pressure: Yes Cardiovascular Disease: Yes Chronic Kidney Disease: Yes Chronic Liver Disease: No Chronic blood disorder like Sickle Cell Disease: No Weak immune system due to disease or medication: No Neurologic condition that limits movement: No Developmental delay - Moderate to Severe: No Recent (within past 2 weeks) or current : No Morbid Obesity (>100 pounds over ideal weight): No - Objective Vital Signs: 4'11" 169 lb Temperature: 98.4 F Pulse Rate: 57 Respiratory Rate: 16 Blood Pressure: 113/54 O2 Sat by Pulse Oximetry: 98 - 2 LPM supplemental O2 Objective: Given above, testing performed: flu, covid Disposition: Home; Selfcare General - General Chief Complaint: Flu Symptoms Time Seen by Provider: 05/18/20 13:40 Mode of Arrival: Ambulatory Information source: Patient - HPI Notes: 74-year-old female presents to [facility] clinic for COVID-19 testing. Patient does have significant medical history of COPD, renal insufficiency, hypertension, asthma, COPD, DM, and heart disease. Patient reports onset of symptoms ap proximately 1 to 2 weeks ago. She is complaining of mild chills, myalgia, rhinorrhea, cough, shortness of breath, nausea, headache. Patient states cough and shortness of breath are not worsened from her baseline with the COPD. She has not needed to increase oxygen and is not using rescue medications any more frequently. Patient is denying any fever, sore throat, abdominal pain or diarrhea. - Related Data Allergies/Adverse Reactions: amoxicillin trihydrate [From Augmentin] Allergy (Severe, Verified 04/29/19 17:21) stomach cramps, n and v, rash butalbital [From Fiorinal] Allergy (Unknown, Verified 04/29/19 17:21) rash metformin HCl [From Glucophage] Allergy (Unknown, Verified 04/29/19 17:21) rash Potassium Clavulanate * [From Augmentin] Adverse Reaction (Unknown, Verified 04/29/19 17:21) nausea, vomit, epig pain Home Medications: Zetia Singulair Percocet Vistaril Phenergan Januvia Crestor Plavix gabapentin Benefiber regular insulin Past Medical History - General Information source: Patient - Social History Smoking Status: Never Smoker Family History: CAD, COPD, DM, Hypertension, Malignancy, Other - Kidney disease - Past Medical History Cardiac Medical History: Reports: Hx Congestive Heart Failure, Hx Coronary Artery Disease - CABG in 2001, Hx Heart Attack, Hx Hypercholesterolemia, Hx Hypertension Denies: Hx Atrial Fibrillation, Hx DVT, Hx Pulmonary Embolism Pulmonary Medical History: Reports: Hx Asthma, Hx Bronchitis, Hx COPD, Hx Pneumonia, Hx Respiratory Failure, Hx Sleep Apnea - no cpap insurance does not cover Denies: Hx Tuberculosis EENT Medical History: Reports: None Neurological Medical History: Reports: Hx Cerebrovascular Accident - X4. Den ies: Hx Seizures, Hx Parkinson's Disease Endocrine Medical History: Reports: Hx Diabetes Mellitus Type 2. Denies: Hx Diabetes Mellitus Type 1, Hx Hyperthyroidism, Hx Hypothyroidism Renal/ Medical History: Reports: Hx End Stage Renal Disease, Hx Kidney Stones. Denies: Hx Peritoneal Dialysis Malignancy Medical History: Reports: None GI Medical History: Reports: Hx Ulcer. Denies: Hx Cirrhosis, Hx Gastroesophageal Reflux Disease, Hx Hepatitis, Hx Pancreatitis Musculoskeletal Medical History: Reports Hx Arthritis, Denies Hx Gout, Denies Hx Multiple Sclerosis, Denies Hx Systemic Lupus Erythematosus Skin Medical History: Reports None, Denies Hx Eczema, Denies Hx Psoriasis Psychiatric Medical History: Reports: Hx Depression Denies: Hx Bipolar Disorder, Hx Schizophrenia Traumatic Medical History: Reports: None Infectious Medical History: Reports: None. Denies: Hx Hepatitis Past Surgical History: Reports: Hx Cardiac Catheterization, Hx Section, Hx Cholecystectomy, Hx Coronary Stent, Hx Gastric Bypass Surgery - 2001, Hx Gynecologic Surgery, Hx Hysterectomy, Hx Open Heart Surgery - 2001 TRIPLE BYPASS, Hx Rectal Surgery, Hx Tubal Ligation Physical Exam - General General appearance: Appears well, Alert In distress: None Notes: PHYSICAL EXAMINATION: GENERAL: Well-appearing and in no acute distress. HEAD: Atraumatic, normocephalic. EYES: sclera anicteric, conjunctiva are normal. ENT: nares patent. Moist mucous membranes. NECK: Normal range of motion, supple without lymphadenopathy LUNGS: No increased work of breathing on 2 L/min supplemental O2 at baseline. CTAB and equal. No wheezes rales or rhonchi. HEART: Regular rate and rhythm without murmurs ABDOMEN: Soft, nontender, normal bowel sounds, no guarding. EXTREMITIES: Normal range of motion, no pitting edema. No cyanosis. NEUROLOGICAL: Cranial nerves grossly intact. Normal speech. PSYCH: Normal mood, normal affect. SKIN: Warm, Dry, normal turgor, no rashes or lesions noted Patient Education/Counseling Counseling/Education: Patient presents with upper respiratory symptoms worrisome for possible Covid 19. Patient does not have emergency worrying symptoms such as chest pain, pressure, confusion or cyanosis. Patient reports her shortness of breath and cough are not any worse than her baseline. Patient is on supplemental oxygen at 2 L/min. Patient appears suitable for discharge as vital signs are stable and patient is nontoxic in appearance. Good return precautions have been discussed with patient, patient verbalized understanding and is agreeable with discharge plan of care at this time. Guidance for worsening S/SX: As a person under investigation for Covid 19, the [place] department of Health and Human Services, division of public health advises you to adhere to the following guidance until your test results are reported to you. If your test result is positive, you will receive additional information from your provider and your local health department at that time. Remain at home until you are cleared by the health provider or public health authorities. Keep a log of visitors to your home, notify any visitors to your home of your isolation status. If you plan to move to a new address or leave the county, notify the local health department in your County. Call your doctor or seek care if you have an urgent medical need. Before seeking medical care, call ahead to get instructions from the provider before arriving at the medical office clinic or hospital. Notify them that you are being tested for the virus that causes Covid 19 so that arrangements can be made, as necessary, to prevent transmission to others in the healthcare setting. Next, notify the local health department in your county. If a medical emergency arises and you need to call 911, inform the first responders that you are being tested for the virus that causes Covid 19. Next, notify the local health department in your county. RDC Discharge - Discharge Clinical Impression: Encounter for screening laboratory testing for COVID-19 virus URI (upper respiratory infection) Qualifiers: URI type: unspecified URI Qualified Code(s): J06.9 - Acute upper respiratory infection, unspecified Condition: Stable Disposition: Home; Selfcare
[2020-05-18 16:04] LABS: A TYPE INFLUENZA AG NEGATIVE (NEGATIVE); B INFLUENZA AG NEGATIVE (NEGATIVE)
== END ==
LOC: RDC 13:19
PROVIDERS: ATTEND Registered Nurse
DX: Z20.828 Contact with and (suspected) exposure to other viral communicable diseases (principal); J06.9 Acute upper respiratory infection, unspecified; R68.83 Chills (without fever); R05 Cough; R06.02 Shortness of breath; J34.89 Other specified disorders of nose and nasal sinuses; I25.10 Atherosclerotic heart disease of native coronary artery without angina pectoris; I12.0 Hypertensive chronic kidney disease with stage 5 chronic kidney disease or end stage renal disease; N18.6 End stage renal disease; E11.22 Type 2 diabetes mellitus with diabetic chronic kidney disease; J44.9 Chronic obstructive pulmonary disease, unspecified; E78.00 Pure hypercholesterolemia, unspecified; M79.10 Myalgia, unspecified site; R11.0 Nausea; R51 Headache; Z88.1 Allergy status to other antibiotic agents; Z88.8 Allergy status to other drugs, medicaments and biological substances; Z95.1 Presence of aortocoronary bypass graft; Z99.81 Dependence on supplemental oxygen
CPT/HCPCS: 87804; U0003; C9803; 87635

== ENCOUNTER → 2020-05-31 | Outpatient (CLI) | payer MEDICARE, MEDICAID ==
[2020-05-31 10:52] LABS: ABSOLUTE EOSINOPHILS # (AUTO) 0.2 10^3/uL (0.0-0.6); ABSOLUTE LYMPHOCYTES (AUTO) 1.3 10^3/uL (0.5-4.7); ABSOLUTE MONOCYTES (AUTO) 0.4 10^3/uL (0.1-1.4); ABSOLUTE NEUT (AUTO) 3.1 10^3/uL (1.7-8.2); BASOPHILS % (AUTO) 0.6 % (0-2); HEMATOCRIT 23.8 % (36.0-47.0); LYMPHOCYTES % (AUTO) 25.9 % (13-45); MEAN CORPUSCULAR HEMOGLOBIN 29.9 pg (27.0-33.4); MEAN CORPUSCULAR HGB CONC 33.4 g/dL (32.0-36.0); MEAN CORPUSCULAR VOLUME 90 fl (80-97); MONOCYTES % (AUTO) 7.3 % (3-13); RED BLOOD COUNT 2.66 10^6/uL (3.72-5.28); RED CELL DISTRIBUTION WIDTH 14.4 % (11.5-14.0); SEGMENTED NEUTROPHILS % (AUTO) 61.2 % (42-78); TOTAL CELLS COUNTED % (AUTO) 100 %
[2020-05-31 11:12] LABS: PLATELET COUNT 93 10^3/uL (150-450)
[2020-05-31 11:13] LABS: ALBUMIN 3.6 g/dL (3.5-5.0); ANION GAP 7 (5-19); BLOOD UREA NITROGEN 79 mg/dL (7-20); CALCIUM 8.1 mg/dL (8.4-10.2); CARBON DIOXIDE 24 mmol/L (22-30); CHLORIDE 104 mmol/L (98-107); GLUCOSE 81 mg/dL (75-110); IRON(TIBC) 114.4 ug/dL (37-170); PHOSPHORUS 4.7 mg/dL (2.5-4.5); POTASSIUM 5.8 mmol/L (3.6-5.0)
[2020-05-31 11:55] LABS: APPEARANCE,URINE SLIGHTLY-CLOUDY; BILIRUBIN,URINE NEGATIVE (NEGATIVE); COLOR,URINE YELLOW; GLUCOSE, URINE NEGATIVE (NEGATIVE); KETONES,URINE NEGATIVE (NEGATIVE); LEUKOCYTE ESTERASE,URINE LARGE (NEGATIVE); NITRITE,URINE NEGATIVE (NEGATIVE); PROTEIN,URINE NEGATIVE (NEGATIVE); UROBILINOGEN,URINE NEGATIVE mg/dL (<2.0)
[2020-06-01 10:37] LABS: CREATININE URINE 37.4 mg/dL (Not Estab.); MICROALBUMIN URINE 62.9 ug/mL (Not Estab.)
== END ==
LOC: OD 10:11
PROVIDERS: ATTEND Internal Medicine Nephrology
DX: N18.5 Chronic kidney disease, stage 5 (principal); D63.1 Anemia in chronic kidney disease; E11.21 Type 2 diabetes mellitus with diabetic nephropathy; E21.1 Secondary hyperparathyroidism, not elsewhere classified; D50.8 Other iron deficiency anemias
CPT/HCPCS: 36415; 80069; 81001; 82043; 82306; 82570; 82728; 83540; 83550; 83735; 83970; 85025

== ENCOUNTER → 2020-06-06 | Outpatient (CLI) | payer MEDICARE, MEDICAID | LOC: OD 10:08 | PROVIDERS: ATTEND Internal Medicine Nephrology | DX: N18.4 Chronic kidney disease, stage 4 (severe) (principal); E87.5 Hyperkalemia | CPT/HCPCS: 36415; 84132 ==